=== PATIENT | female | born 1965 | race American Indian/Alaskan Native ===

== ENCOUNTER 2016-05-06 11:59 | Emergency (ER) | payer MEDICARE ==
--- NOTE | 2016-05-06 14:35 | Emergency Department Report ---
Chief Complaint: Recheck/Abnormal Lab/Rx Stated Complaint: ASTHMA Time Seen by Provider: 05/06/16 14:35 - HPI History of Present Illness: Patient here reports that she needs to know if she is anemic or need iron supplements her blood transfusion. She says she has all the symptoms of anemia to include shortness of breath all the time. She has panic attacks. She says she is losing blood from somewhere. Patient does not have her period anymore. She said her hears falling out. She sees Dr. Sebastián Zuñiga who she has an appointment with an May 18. said that she cannot wait. Her vitamin D level he is at 12 and she has mild anemia based on lab results that she brought to the hospital. He reports that Dr. Rhys Bond has not addressed the problem as yet. Denies any nausea or vomiting. Denies any fever or chills. Denies any chest pain. - ROS Review of Systems: All systems are negative unless stated in HPI above. - Exam Vital Signs: Vital Signs 05/06/16 14:02 Temperature 98.4 F Pulse Rate 88 Respiratory 18 Rate Blood Pressure 106/64 O2 Sat by Pulse 98 Oximetry Physical Exam: General: This is a 50-year-old female well-nourished well-developed in no acute distress. Cardiovascular: S1, S2. Regular rate and rhythm. Lungs: Clear to auscultate bilaterally, rhonchi wheezes or rales. MSE screening note: Focused history and physical exam performed. Due to findings the following was ordered: See [facility] ED Medical Decision Making - Medical Decision Making Medical decision making: Patient seen by provider in triage area. Appropriate protocol activated and patient to main ED to be seen by physician. ED Disposition for MSE Condition: Stable
[2016-05-06 15:25] LABS: Basophils % (Auto) 0.8 % (0.0-1.8); Hematocrit 36.1 % (30.3-42.9); Mean Corpuscular HGB Conc 33 % (30-34); Mean Corpuscular Hemoglobin 28 pg (28-32); Mean Corpuscular Volume 85 fl (79-97); Platelet Count 270 K/mm3 (140-440); Red Blood Count 4.26 M/mm3 (3.65-5.03); Red Cell Distribution Width 13.8 % (13.2-15.2); White Blood Count 5.5 K/mm3 (4.5-11.0)
[2016-05-06 15:46] LABS: Alanine Aminotransferase 20 units/L (7-56); Albumin 4.4 g/dL (3.9-5); Albumin/Globulin Ratio 1.3 %; Alkaline Phosphatase 93 units/L (35-129); Anion Gap 19 mmol/L; BUN/Creatinine Ratio 10.83; Bilirubin,Total < 0.2 mg/dL (0.1-1.2); Blood Urea Nitrogen 13 mg/dL (7-17); Calcium 9.5 mg/dL (8.4-10.2); Carbon Dioxide 22 mmol/L (22-30); Chloride 102.4 mmol/L (98-107); Glucose 108 mg/dL (65-100); Potassium 4.7 mmol/L (3.6-5.0); Sodium 139 mmol/L (137-145); Total Iron Binding Capacity 348.6 mcg/dL (250-450); Total Protein 7.8 g/dL (6.3-8.2)
[2016-05-06 16:17] LABS: Bilirubin,Urine NEG (Negative); Blood,Urine NEG (Negative); Ketones,Urine NEG (Negative); Leukocyte Esterase,Urine NEG (Negative); Mucus,Urine FEW /HPF; Nitrite,Urine NEG (Negative); Protein,Urine <15 mg/dL mg/dL (Negative); Urobilinogen,Urine < 2.0 mg/dL (<2.0)
--- NOTE | 2016-05-06 21:36 | Emergency Department Report ---
HPI - General Chief Complaint: Recheck/Abnormal Lab/Rx Time Seen by Provider: 05/06/16 14:47 - HPI HPI: 50-year-old female with history of asthma, hypertension, diabetes, anemia presents today stating she would like to get her anemia and iron checked. Patient would also like vitamin D levels checked. Patient states that she had a asthma exacerbation earlier today but the symptoms have resolved. Denies shortness of breath, wheezing, difficulty in breathing at this time. Denies fever, chills, nausea, vomiting, chest pain, abdominal pain. Patient states that she has an appointment with her primary care provider on May 18 but did not want to wait to get lab work done. ED Past Medical Hx - Past Medical History Hx Hypertension: Yes Hx Diabetes: Yes Hx GERD: Yes Hx Arthritis: Yes Hx Psychiatric Treatment: Yes (Anxiety) Hx Asthma: Yes Additional medical history: Intubated x 8. heart murmur. osteoporosis. hearing loss in [place] - Surgical History Additional Surgical History: cataracts, nasal surg, tubal ligation - Social History Smoking Status: Never Smoker Substance Use Type: None - Medications Home Medications: Home Medications Medication Instructions Recorded Confirmed Last Taken Type Aspirin [Aspirin BABY CHEW TAB] 81 mg PO QDAY #30 tab.chew 06/15/13 04/05/1608/30 Rx ALBUTEROL Inhaler [ProAir HFA 2 puff IH QID PRN #1 inhalation 01/12/15 04/17/15 04/17/15 Rx Inhaler] Albuterol *Only Ed* [Proventil 2.5 mg IH Q4H PRN #1 box 02/06/15 04/17/1504/17 Rx 0.5% NEBS] Fluticasone/Salmeterol [Advair 2 inhalation INHALATION DAILY #1 02/06/1504/17/15 Rx Diskus 500-50 mcg] disk.w.dev Ipratropium [Atrovent NEB] 0.5 mg IH Q6HRT PRN #120 neb 02/06/15 04/17/15 Rx Gabapentin [Neurontin] 300 mg PO Q8HR 03/02/15 04/05/16 11/24/15 History Meloxicam [Mobic] 7.5 mg PO QDAY 03/02/15 04/05/16/16 History HYDROcodone/APAP 5-325 [[place] 1 each PO Q4HR PRN #20 tablet 04/08/15 04/17/15 Rx 5/325] Lisinopril [Zestril TAB] 20 mg PO QDAY tablet 06/16/15 04/05/16 11/25/15 Rx Loratadine [Claritin] 10 mg PO QDAY tablet 06/16/15 04/05/16 06/10/15 Rx Montelukast [Singulair] 10 mg PO QHS tablet 06/16/15 04/05/16 06/10/15 Rx Budesoni/Formotero 160-4.5(Nf) 1 puff IH BID #1 inha 10/26/15 04/05/16 Unknown Rx [Symbicort 160-4.5 (Nf)] Fluticasone/Salmeterol [Advair 2 inhalation INHALATION DAILY #1 10/26/15 Unknown Rx Diskus 500-50 mcg] disk.w.dev ALBUTEROL Inhaler [ProAir HFA 2 puff IH QID PRN #1 inhalation 03/15/16 04/05/16 Unknown Rx Inhaler] Fluticasone [Flonase] 1 spray NS QDAY #1 bottle 03/15/16 04/05/16 Unknown Rx Ipratropium/Albuterol Sulfate 1 ampul IH Q4HR #1 box 03/15/16 04/05/16 Unknown Rx [Duoneb 0.5 mg-3 mg/3 ml Soln] Diazepam Tab [Valium] 2 mg PO TID PRN #10 tablet 04/05/16 Unknown Rx ED Review of Systems ROS: Stated complaint: ASTHMA Other details as noted in HPI Constitutional: denies: chills, fever, malaise Eyes: denies: eye pain ENT: denies: ear pain, throat pain, congestion Respiratory: denies: cough, shortness of breath, wheezing Cardiovascular: denies: chest pain, palpitations Endocrine: no symptoms reported Gastrointestinal: denies: abdominal pain, nausea, vomiting Neurological: denies: headache Physical Exam - Physical Exam Vital Signs: Vital Signs 05/06/16 14:02 Temperature 98.4 F Pulse Rate 88 Respiratory 18 Rate Blood Pressure 106/64 O2 Sat by Pulse 98 Oximetry Physical Exam: GENERAL: The patient is well-developed and well-nourished. Patient is in NAD. HEAD: Normocephalic. Atraumatic. CHEST/LUNGS: Clear to auscultation throughout. HEART/CARDIOVASCULAR: Regular rate and rhythm. ABDOMEN: Abdomen is soft, nontender. No guarding or rebound tenderness. EXTREMITIES: Peripheral pulses intact. Capillary refill less than 2 seconds. NEURO: Alert and oriented x 3. Normal gait. ED Course Vital Signs 05/06/16 14:02 Temperature 98.4 F Pulse Rate 88 Respiratory 18 Rate Blood Pressure 106/64 O2 Sat by Pulse 98 Oximetry ED Medical Decision Making - Lab Data Result diagrams: 05/06/16 15:04 05/06/16 15:09 Vital Signs 05/06/16 14:02 Temperature 98.4 F Pulse Rate 88 Respiratory 18 Rate Blood Pressure 106/64 O2 Sat by Pulse 98 Oximetry Lab Results 05/06/16 05/06/16 05/06/16 Range/Units 15:04 15:09 15:09 WBC 5.5 (4.5-11.0) K/mm3 RBC 4.26 (3.65-5.03) M/mm3 Hgb 12.0 (10.1-14.3) gm/dl Hct 36.1 (30.3-42.9) % MCV 85 (79-97) fl MCH 28 (28-32) pg MCHC 33 (30-34) % RDW 13.8 (13.2-15.2) % Plt Count 270 (140-440) K/mm3 Lymph % (Auto) 27.0 (13.4-35.0) % Tift % (Auto) 6.5 (0.0-7.3) % Eos % (Auto) 1.0 (0.0-4.3) % Baso % (Auto) 0.8 (0.0-1.8) % Lymph # 1.5 (1.2-5.4) K/mm3 Tift # 0.4 (0.0-0.8) K/mm3 Eos # 0.1 (0.0-0.4) K/mm3 Baso # 0.0 (0.0-0.1) K/mm3 Seg Neutrophils % 64.7 (40.0-70.0) % Seg Neutrophils # 3.6 (1.8-7.7) K/mm3 Sodium 139 (137-145) mmol/L Potassium 4.7 (3.6-5.0) mmol/L Chloride 102.4 (98-107) mmol/L Carbon Dioxide 22 (22-30) mmol/L Anion Gap 19 mmol/L BUN 13 (7-17) mg/dL Creatinine 1.2 (0.7-1.2) mg/dL Estimated GFR 57 ml/min BUN/Creatinine Ratio 10.83 % Glucose 108 H (65-100) mg/dL Calcium 9.5 (8.4-10.2) mg/dL Iron 72 (37-170) ug/dL TIBC 348.60 (250-450) mcg/dL % Saturation 20.65 % Transferrin 249 (192-382) mg/dl Total Bilirubin < 0.2 (0.1-1.2) mg/dL AST 20 (5-40) units/L ALT 20 (7-56) units/L Alkaline Phosphatase 93 (35-129) units/L Total Protein 7.8 (6.3-8.2) g/dL Albumin 4.4 (3.9-5) g/dL Albumin/Globulin Ratio 1.3 % Urine Color (Yellow) Urine Turbidity (Clear) Urine pH (5.0-7.0) Ur Specific [place] (1.003-1.030) Urine Protein (Negative) mg/dL Urine Glucose (UA) (Negative) mg/dL Urine Ketones (Negative) mg/dL Urine Blood (Negative) Urine Nitrite (Negative) Urine Bilirubin (Negative) Urine Urobilinogen (<2.0) mg/dL Ur Leukocyte Esterase (Negative) Urine WBC (Auto) (0.0-6.0) /HPF Urine RBC (Auto) (0.0-6.0) /HPF U Epithel Cells (Auto) (0-13.0) /HPF Urine Mucus /HPF 05/06/16 Range/Units 15:55 WBC (4.5-11.0) K/mm3 RBC (3.65-5.03) M/mm3 Hgb (10.1-14.3) gm/dl Hct (30.3-42.9) % MCV (79-97) fl MCH (28-32) pg MCHC (30-34) % RDW (13.2-15.2) % Plt Count (140-440) K/mm3 Lymph % (Auto) (13.4-35.0) % Tift % (Auto) (0.0-7.3) % Eos % (Auto) (0.0-4.3) % Baso % (Auto) (0.0-1.8) % Lymph # (1.2-5.4) K/mm3 Tift # (0.0-0.8) K/mm3 Eos # (0.0-0.4) K/mm3 Baso # (0.0-0.1) K/mm3 Seg Neutrophils % (40.0-70.0) % Seg Neutrophils # (1.8-7.7) K/mm3 Sodium (137-145) mmol/L Potassium (3.6-5.0) mmol/L Chloride (98-107) mmol/L Carbon Dioxide (22-30) mmol/L Anion Gap mmol/L BUN (7-17) mg/dL Creatinine (0.7-1.2) mg/dL Estimated GFR ml/min BUN/Creatinine Ratio % Glucose (65-100) mg/dL Calcium (8.4-10.2) mg/dL Iron (37-170) ug/dL TIBC (250-450) mcg/dL % Saturation % Transferrin (192-382) mg/dl Total Bilirubin (0.1-1.2) mg/dL AST (5-40) units/L ALT (7-56) units/L Alkaline Phosphatase (35-129) units/L Total Protein (6.3-8.2) g/dL Albumin (3.9-5) g/dL Albumin/Globulin Ratio % Urine Color Straw (Yellow) Urine Turbidity Clear (Clear) Urine pH 5.0 (5.0-7.0) Ur Specific [place] 1.012 (1.003-1.030) Urine Protein <15 mg/dl (Negative) mg/dL Urine Glucose (UA) Neg (Negative) mg/dL Urine Ketones Neg (Negative) mg/dL Urine Blood Neg (Negative) Urine Nitrite Neg (Negative) Urine Bilirubin Neg (Negative) Urine Urobilinogen < 2.0 (<2.0) mg/dL Ur Leukocyte Esterase Neg (Negative) Urine WBC (Auto) 2.0 (0.0-6.0) /HPF Urine RBC (Auto) 1.0 (0.0-6.0) /HPF U Epithel Cells (Auto) < 1.0 (0-13.0) /HPF Urine Mucus Few /HPF - Medical Decision Making 50-year-old female presents today for her blood count and iron levels. Denies any medical complaints. Her physical exam is unremarkable. Informed patient that all her lab work is normal and she needs to follow up with her primary care provider. A copy of her lab work has been provided. Patient is in no acute distress at this time. She will be discharged home and is encouraged to return to the emergency room for any worsening symptoms. Critical care attestation.: If time is entered above; I have spent that time in minutes in the direct care of this critically ill patient, excluding procedure time. ED Disposition Clinical Impression: Anemia due to chronic blood loss Disposition: DISCHARGED TO HOME OR SELFCARE Is pt being admited?: No Does the pt Need Aspirin: No Condition: Stable Instructions: Anemia (ED) Additional Instructions: Follow-up with primary care provider. Return to the emergency department if symptoms worsen. Referrals: MAYA CARRIZALES MD [Primary Care Provider] - 3-5 Days Forms: Work/School Release Form(ED) Time of Disposition: 21:37
[2016-05-06 21:49] VITALS: BP 104/70
== END 2016-05-06 22:11 | disposition home or self-care (01) ==
LOC: ED 11:59
DX: D50.0 Iron deficiency anemia secondary to blood loss (chronic) (principal); I10 Essential (primary) hypertension; E11.9 Type 2 diabetes mellitus without complications; K21.9 Gastro-esophageal reflux disease without esophagitis; M19.90 Unspecified osteoarthritis, unspecified site; F41.9 Anxiety disorder, unspecified; Z79.4 Long term (current) use of insulin
CPT/HCPCS: 36415; 80053; 81001; 83550; 85025; 99283

== ENCOUNTER 2016-05-23 23:44 | Emergency (ER) | payer MEDICARE ==
[2016-05-24] VITALS: BP 173/104
[2016-05-24] MEDS: PROVENTIL IH ONE (00:50)
[2016-05-24] MEDS: ATROVENT IH ONE (00:51)
[2016-05-24] MEDS: DELTASONE PO ONE (01:21)
--- NOTE | 2016-05-24 01:33 | Emergency Department Report ---
ED Shortness of Breath HPI - General Chief Complaint: Dyspnea/Respdistress Stated Complaint: ASTHMA Time Seen by Provider: 05/24/16 00:48 Source: patient, EMS Mode of arrival: Wheelchair Limitations: No Limitations - History of Present Illness Initial Comments: This is an anxious individual who reports a long-standing history of asthma. She has been intubated on several occasions. She reports that she feels over the last couple of days has been more difficult to get a deep breath. She reports several things that are stressors and contributors to exacerbations. She indicates certain smells as well as whether and congestion can contribute to her asthma. She reports compliance on her medications. States last time she was on steroids was approximately 2 or 3 months ago. She states that she has a difficult time with her inhaler feeling that she can't get a deep breath with it. She reports more success with her nebulizer. She denies fever she denies cough she denies chest pain. MD Complaint: shortness of breath, "asthma attack", anxiety Onset/Timin -: Gradual, days(s) Severity: moderate Improves With: oxygen, bronchodilators Worsens With: exertion Known History Of: asthma Context: anxiety Associated Symptoms: denies other symptoms Treatments Prior to Arrival: bronchodilator - Related Data Home Medications Medication Instructions Recorded Confirmed Last Taken Gabapentin [Neurontin] 300 mg PO Q8HR 03/02/15 04/05/16 11/24/15 Meloxicam [Mobic] 7.5 mg PO QDAY 03/02/15 04/05/16 06/15/15 Previous Rx's Medication Instructions Recorded Last Taken Type Aspirin [Aspirin BABY CHEW TAB] 81 mg PO QDAY #30 tab.chew 06/15/13 11/20/15 Rx Lisinopril [Zestril TAB] 20 mg PO QDAY tablet 06/16/15 11/25/15 Rx Loratadine [Claritin] 10 mg PO QDAY tablet 06/16/15 06/10/15 Rx Montelukast [Singulair] 10 mg PO QHS tablet 06/16/15 06/10/15 Rx Budesoni/Formotero 160-4.5(Nf) 1 puff IH BID #1 inha 10/26/15 Unknown Rx [Symbicort 160-4.5 (Nf)] Fluticasone/Salmeterol [Advair 2 inhalation INHALATION DAILY #1 10/26/15 Unknown Rx Diskus 500-50 mcg] disk.w.dev Fluticasone [Flonase] 1 spray NS QDAY #1 bottle 03/15/16 Unknown Rx Ipratropium/Albuterol Sulfate 1 ampul IH Q4HR #1 box 03/15/16 Unknown Rx [Duoneb 0.5 mg-3 mg/3 ml Soln] Diazepam Tab [Valium] 2 mg PO TID PRN #10 tablet 04/05/16 Unknown Rx ALBUTEROL Inhaler [ProAir HFA 2 puff IH QID PRN #1 inhalation 05/24/16 Unknown Rx Inhaler] Prednisone [predniSONE 10 mg 10 mg PO .TAPER #1 tab.ds.pk 05/24/16 Unknown Rx (6-Day Pack, 21 Tabs)] Allergies Allergy/AdvReac Type Severity Reaction Status Date / Time amoxicillin Allergy Unknown Verified 05/24/16 00:00 Penicillins Allergy Rash Verified 05/06/16 14:09 seafood Allergy Severe Anaphylaxis Uncoded 05/06/16 14:09 ED Review of Systems ROS: Stated complaint: ASTHMA Other details as noted in HPI Constitutional: denies: chills, fever Eyes: denies: eye pain, eye discharge, vision change ENT: denies: ear pain, throat pain Respiratory: shortness of breath, wheezing. denies: cough Cardiovascular: denies: chest pain, palpitations Endocrine: no symptoms reported Gastrointestinal: denies: abdominal pain, nausea, diarrhea Genitourinary: denies: urgency, dysuria, discharge Musculoskeletal: denies: back pain, joint swelling, arthralgia Skin: denies: rash, lesions Neurological: denies: headache, weakness, paresthesias Psychiatric: anxiety. denies: depression Hematological/Lymphatic: denies: easy bleeding, easy bruising ED Past Medical Hx - Past Medical History Previous Medical History?: Yes Hx Hypertension: Yes Hx Diabetes: Yes Hx GERD: Yes Hx Arthritis: Yes Hx Psychiatric Treatment: Yes (Anxiety) Hx Asthma: Yes Additional medical history: Intubated x 8. heart murmur. osteoporosis. hearing loss in [place] - Surgical History Past Surgical History?: Yes Additional Surgical History: cataracts, nasal surg, tubal ligation. bilateral foot - Social History Smoking Status: Former Smoker - Medications Home Medications: Home Medications Medication Instructions Recorded Confirmed Last Taken Type Aspirin [Aspirin BABY CHEW TAB] 81 mg PO QDAY #30 tab.chew 06/15/13 04/05/1608/30 Rx Gabapentin [Neurontin] 300 mg PO Q8HR 03/02/15 04/05/16 11/24/15 History Meloxicam [Mobic] 7.5 mg PO QDAY 03/02/15 04/05/16 06/15/15 History Lisinopril [Zestril TAB] 20 mg PO QDAY tablet 06/16/15 04/05/16 11/25/15 Rx Loratadine [Claritin] 10 mg PO QDAY tablet 06/16/15 04/05/16 06/10/15 Rx Montelukast [Singulair] 10 mg PO QHS tablet 06/16/15 04/05/16 06/10/15 Rx Budesoni/Formotero 160-4.5(Nf) 1 puff IH BID #1 inha 10/26/15 04/05/16 Unknown Rx [Symbicort 160-4.5 (Nf)] Fluticasone/Salmeterol [Advair 2 inhalation INHALATION DAILY #1 10/26/15 Unknown Rx Diskus 500-50 mcg] disk.w.dev Fluticasone [Flonase] 1 spray NS QDAY #1 bottle 03/15/16 04/05/16 Unknown Rx Ipratropium/Albuterol Sulfate 1 ampul IH Q4HR #1 box 03/15/16 04/05/16 Unknown Rx [Duoneb 0.5 mg-3 mg/3 ml Soln] Diazepam Tab [Valium] 2 mg PO TID PRN #10 tablet 04/05/16 Unknown Rx ALBUTEROL Inhaler [ProAir HFA 2 puff IH QID PRN #1 inhalation 05/24/16 Unknown Rx Inhaler] Prednisone [predniSONE 10 mg 10 mg PO .TAPER #1 tab.ds.pk 05/24/16 Unknown Rx (6-Day Pack, 21 Tabs)] ED Physical Exam - General Limitations: No Limitations General appearance: alert, anxious, in distress (mild with deep sigh like breaths) - Head Head exam: Present: atraumatic, normocephalic - Eye Eye exam: Present: normal appearance, PERRL. Absent: scleral icterus - ENT ENT exam: Present: normal orophraynx, mucous membranes moist - Neck Neck exam: Present: normal inspection - Respiratory Respiratory exam: Present: wheezes (mild), decreased breath sounds (mild). Absent: respiratory distress, rhonchi, stridor - Cardiovascular Cardiovascular Exam: Present: regular rate, normal rhythm. Absent: systolic murmur, diastolic murmur, rubs, gallop - GI/Abdominal GI/Abdominal exam: Present: soft, normal bowel sounds - Extremities Exam Extremities exam: Present: normal inspection - Back Exam Back exam: Present: normal inspection - Neurological Exam Neurological exam: Present: alert, oriented X3 - Psychiatric Psychiatric exam: Present: anxious. Absent: agitated - Skin Skin exam: Present: warm, dry, intact, normal color. Absent: rash ED Course Vital Signs 05/23/16 05/24/16 23:51 01:25 Temperature 98.3 F Pulse Rate 91 H Pulse Rate [ 85 Bilateral Throughout] Respiratory 22 Rate Respiratory 22 Rate [Bilateral Throughout] Blood Pressure 173/104 O2 Sat by Pulse 98 Oximetry - Reevaluation(s) Reevaluation #1: 05/24/16 02:17 Patient has somewhat of a non-affect. There does seem to be some mental delay or some difficulties with understanding comprehension in general. So I don't know what her baseline is exactly. She does seem to have some difficulty with understanding all of the concepts I am discussing regarding her asthma. She was given a 10 mg albuterol and Atrovent nebulized treatment here with subjective and objective improvement. She did become fairly shaky with this. She is in increased anxiety at this time as well. Objectively she is able to take deeper breaths with good air movement. Still has occasional wheeze but sounds much improved. Looking at her though she still has this kind of deep sigh breathing that she is doing. HER chest at times stating that she feels fairly tight still. Her oxygen saturation is 100% heart rate is normal she has been given steroids here. I do not see a reason to keep her in the hospital. I did give her 1 mg of Ativan here. She asked for a prescription for home. I am unwilling to do this. She has her brother who is coming to pick her up. Clearly I take into account the fact that she's had intubation in the past and I don't doubt she could get into trouble quickly. She has been hears a couple of hours and has not shown any decline in any way. Avoid bolus here as well which I think will continue to improve her status over the next several hours. Again, she indicates she has a brother who will be with her tonight. ED Medical Decision Making - EKG Data -: EKG Interpreted by Me EKG shows normal: sinus rhythm, axis, intervals, QRS complexes, ST-T waves Rate: normal - EKG Data Interpretation: normal EKG - Radiology Data interpreted by me: Normal chest x-ray normal cardiac silhouette and no infiltrates. Critical care attestation.: If time is entered above; I have spent that time in minutes in the direct care of this critically ill patient, excluding procedure time. ED Disposition Clinical Impression: Asthma Asthma exacerbation Qualifiers: Asthma severity: moderate persistent Qualified Code(s): J45.41 - Moderate persistent asthma with (acute) exacerbation Disposition: DISCHARGED TO HOME OR SELFCARE Is pt being admited?: No Does the pt Need Aspirin: No Condition: Stable Instructions: Asthma (ED) Prescriptions: ALBUTEROL Inhaler [ProAir HFA Inhaler] 2 puff IH QID PRN #1 inhalation PRN Reason: Shortness Of Breath Prednisone [predniSONE 10 mg (6-Day Pack, 21 Tabs)] 10 mg PO .TAPER #1 tab.ds.pk Referrals: PRIMARY CARE, [Primary Care Provider] - 3-5 Days Time of Disposition: 01:33
[2016-05-24] MEDS ORDERED: ATIVAN ONE (01:53)
[2016-05-24] MEDS: ATIVAN PO ONE (02:09)
--- NOTE | 2016-05-24 07:34 | XRay Report ---
AP CHEST: HISTORY: Short of breath AP view of the chest demonstrates a normal mediastinal and cardiac contour with clear lungs and normal bony and soft tissue structures. No significant change since 04/05/16. IMPRESSION: Unremarkable AP chest.
== END 2016-05-24 02:11 | disposition home or self-care (01) ==
LOC: ED 23:44
DX: J45.41 Moderate persistent asthma with (acute) exacerbation (principal); F41.9 Anxiety disorder, unspecified; I10 Essential (primary) hypertension; E11.9 Type 2 diabetes mellitus without complications; K21.9 Gastro-esophageal reflux disease without esophagitis; M19.90 Unspecified osteoarthritis, unspecified site; Z87.891 Personal history of nicotine dependence; Z79.82 Long term (current) use of aspirin; Z88.0 Allergy status to penicillin; Z88.1 Allergy status to other antibiotic agents; Z91.013 Allergy to seafood
CPT/HCPCS: 71010; 93005; 93010; 94644; 99284; J7512

== ENCOUNTER 2016-07-09 18:28 | Emergency (ER) | payer MEDICARE ==
[2016-07-09] MEDS ORDERED: DUONEB 0.5 MG-3 MG/3 ML SOLN IH ONE (19:43)
[2016-07-09 20:14] LABS: Basophils % (Auto) 1.2 % (0.0-1.8); Eosinophils % (Auto) 9.5 % (0.0-4.3); Hematocrit 33.3 % (30.3-42.9); Hemoglobin 11.1 gm/dl (10.1-14.3); Mean Corpuscular HGB Conc 33 % (30-34); Mean Corpuscular Hemoglobin 29 pg (28-32); Mean Corpuscular Volume 86 fl (79-97); Platelet Count 247 K/mm3 (140-440); Red Blood Count 3.89 M/mm3 (3.65-5.03); Red Cell Distribution Width 15.2 % (13.2-15.2); White Blood Count 5.9 K/mm3 (4.5-11.0)
[2016-07-09 20:26] LABS: Anion Gap 17 mmol/L; BUN/Creatinine Ratio 13.33; Blood Urea Nitrogen 12 mg/dL (7-17); Calcium 9.1 mg/dL (8.4-10.2); Carbon Dioxide 26 mmol/L (22-30); Chloride 103.9 mmol/L (98-107); Glucose 84 mg/dL (65-100); Sodium 143 mmol/L (137-145)
[2016-07-10] MEDS ORDERED: DUONEB 0.5 MG-3 MG/3 ML SOLN IH ONE (01:37)
[2016-07-10] MEDS ORDERED: MAGNESIUM SULFATE IV ONE (03:42)
[2016-07-10] MEDS ORDERED: MAGNESIUM SULFATE 2GM/50ML 2 GM/50 ML BAG IV ONE (04:00)
[2016-07-10 07:01] LABS: ISTAT Base Excess 0; ISTAT DEVICE 0; ISTAT HCO3 24.2; ISTAT PCO2 37.1 (35-45); ISTAT PH 7.423 (7.35-7.45); ISTAT PO2 94 (80-105); ISTAT SO2 98; ISTAT TCO2 25
--- NOTE | 2016-07-10 07:33 | Emergency Department Report ---
ED General Adult HPI - General Chief complaint: Dyspnea/Respdistress Stated complaint: ASTHMA ATTACK Time Seen by Provider: 07/10/16 06:19 Source: patient Mode of arrival: Ambulatory Limitations: No Limitations - History of Present Illness Initial comments: The patient complains of exacerbation of asthma. She states that she was at [facility] last week and given a course of I presume a azithromycin and Medrol Dosepak. She states that 2 days after that she started to flareup again. She has some tightness associated with her wheezing but not any independent chest pain. She has no pleuritic chest pain. She has not been coughing significantly or producing sputum. She's had no recent fever or chills. She does not complain of any chest tightness now. She states that she has never seen a lung specialist. She is improved after receiving steroids and nebs here. -: week(s) Location: chest Radiation: non-radiation Severity scale (0 -10): 0 Quality: other (see above) Consistency: now resolved Worsens with: none Associated Symptoms: denies other symptoms Treatments Prior to Arrival: none - Related Data Home Medications Medication Instructions Recorded Confirmed Last Taken Gabapentin [Neurontin] 300 mg PO Q8HR 03/02/15 04/05/16 11/24/15 Meloxicam [Mobic] 7.5 mg PO QDAY 03/02/15 04/05/16 06/15/15 Previous Rx's Medication Instructions Recorded Last Taken Type Aspirin [Aspirin BABY CHEW TAB] 81 mg PO QDAY #30 tab.chew 06/15/13 11/20/15 Rx Lisinopril [Zestril TAB] 20 mg PO QDAY tablet 06/16/15 11/25/15 Rx Loratadine [Claritin] 10 mg PO QDAY tablet 06/16/15 06/10/15 Rx Montelukast [Singulair] 10 mg PO QHS tablet 06/16/15 06/10/15 Rx Budesoni/Formotero 160-4.5(Nf) 1 puff IH BID #1 inha 10/26/15 Unknown Rx [Symbicort 160-4.5 (Nf)] Fluticasone/Salmeterol [Advair 2 inhalation INHALATION DAILY #1 10/26/15 Unknown Rx Diskus 500-50 mcg] disk.w.dev Fluticasone [Flonase] 1 spray NS QDAY #1 bottle 03/15/16 Unknown Rx Ipratropium/Albuterol Sulfate 1 ampul IH Q4HR #1 box 03/15/16 Unknown Rx [Duoneb 0.5 mg-3 mg/3 ml Soln] Diazepam Tab [Valium] 2 mg PO TID PRN #10 tablet 04/05/16 Unknown Rx Prednisone [predniSONE 10 mg 10 mg PO .TAPER #1 tab.ds.pk 05/24/16 Unknown Rx (6-Day Pack, 21 Tabs)] Azithromycin [Zithromax TAB] 250 mg PO QDAY #6 tablet 06/03/16 Unknown Rx Fluticasone [Flonase] 1 spray NS QDAY #1 bottle 06/03/16 Unknown Rx ALBUTEROL Inhaler [ProAir HFA 2 puff IH QID PRN #1 inhalation 07/10/16 Unknown Rx Inhaler] ALBUTEROL NEB's [Proventil 0.083% 2.5 mg IH TID PRN #60 neb 07/10/16 Unknown Rx NEBS] Mometasone Furoate [Asmanex] 220 mcg IH QDAY #1 aer.pow.ba 07/10/16 Unknown Rx predniSONE [Deltasone] 40 mg PO QDAY #10 tab 07/10/16 Unknown Rx Allergies Allergy/AdvReac Type Severity Reaction Status Date / Time amoxicillin Allergy Unknown Verified 06/03/16 11:01 Penicillins Allergy Rash Verified 06/03/16 11:01 seafood Allergy Severe Anaphylaxis Uncoded 05/06/16 14:09 ED Review of Systems ROS: Stated complaint: ASTHMA ATTACK Other details as noted in HPI Constitutional: denies: chills, fever Eyes: denies: eye pain, eye discharge, vision change ENT: denies: ear pain, throat pain Respiratory: no symptoms reported, shortness of breath, wheezing. denies: SOB at rest Cardiovascular: as per HPI. denies: palpitations Endocrine: no symptoms reported Gastrointestinal: denies: abdominal pain, nausea, diarrhea Genitourinary: denies: urgency, dysuria, discharge Musculoskeletal: denies: back pain, joint swelling, arthralgia Skin: denies: rash, lesions Neurological: denies: headache, weakness, paresthesias Psychiatric: denies: anxiety, depression Hematological/Lymphatic: denies: easy bleeding, easy bruising ED Past Medical Hx - Past Medical History Hx Hypertension: Yes Hx Diabetes: Yes Hx GERD: Yes Hx Arthritis: Yes Hx Psychiatric Treatment: Yes (Anxiety) Hx Asthma: Yes Additional medical history: Intubated x 8. heart murmur. osteoporosis. hearing loss in [place] - Surgical History Additional Surgical History: cataracts, nasal surg, tubal ligation. bilateral foot - Social History Smoking Status: Never Smoker Substance Use Type: None - Medications Home Medications: Home Medications Medication Instructions Recorded Confirmed Last Taken Type Aspirin [Aspirin BABY CHEW TAB] 81 mg PO QDAY #30 tab.chew 06/15/13 04/05/1608/30 Rx Gabapentin [Neurontin] 300 mg PO Q8HR 03/02/15 04/05/16 11/24/15 History Meloxicam [Mobic] 7.5 mg PO QDAY 03/02/15 04/05/16 06/15/15 History Lisinopril [Zestril TAB] 20 mg PO QDAY tablet 06/16/15 04/05/16 11/25/15 Rx Loratadine [Claritin] 10 mg PO QDAY tablet 06/16/15 04/05/16 06/10/15 Rx Montelukast [Singulair] 10 mg PO QHS tablet 06/16/15 04/05/16 06/10/15 Rx Budesoni/Formotero 160-4.5(Nf) 1 puff IH BID #1 inha 10/26/15 04/05/16 Unknown Rx [Symbicort 160-4.5 (Nf)] Fluticasone/Salmeterol [Advair 2 inhalation INHALATION DAILY #1 10/26/15 Unknown Rx Diskus 500-50 mcg] disk.w.dev Fluticasone [Flonase] 1 spray NS QDAY #1 bottle 03/15/16 04/05/16 Unknown Rx Ipratropium/Albuterol Sulfate 1 ampul IH Q4HR #1 box 03/15/16 04/05/16 Unknown Rx [Duoneb 0.5 mg-3 mg/3 ml Soln] Diazepam Tab [Valium] 2 mg PO TID PRN #10 tablet 04/05/16 Unknown Rx Prednisone [predniSONE 10 mg 10 mg PO .TAPER #1 tab.ds.pk 05/24/16 Unknown Rx (6-Day Pack, 21 Tabs)] Azithromycin [Zithromax TAB] 250 mg PO QDAY #6 tablet 06/03/16 Unknown Rx Fluticasone [Flonase] 1 spray NS QDAY #1 bottle 06/03/16 Unknown Rx ALBUTEROL Inhaler [ProAir HFA 2 puff IH QID PRN #1 inhalation 07/10/16 Unknown Rx Inhaler] ALBUTEROL NEB's [Proventil 0.083% 2.5 mg IH TID PRN #60 neb 07/10/16 Unknown Rx NEBS] Mometasone Furoate [Asmanex] 220 mcg IH QDAY #1 aer.pow.ba 07/10/16 Unknown Rx predniSONE [Deltasone] 40 mg PO QDAY #10 tab 07/10/16 Unknown Rx ED Physical Exam - General Limitations: No Limitations General appearance: alert, in no apparent distress - Head Head exam: Present: atraumatic, normocephalic - Eye Eye exam: Present: normal appearance, PERRL, EOMI. Absent: scleral icterus - ENT ENT exam: Present: normal exam, mucous membranes moist - Neck Neck exam: Present: normal inspection - Respiratory Respiratory exam: Present: normal lung sounds bilaterally, other (wheezing resolved now). Absent: respiratory distress - Cardiovascular Cardiovascular Exam: Present: regular rate, normal rhythm. Absent: systolic murmur, diastolic murmur, rubs, gallop - GI/Abdominal GI/Abdominal exam: Present: soft, normal bowel sounds. Absent: distended, tenderness, guarding, rebound, rigid - Extremities Exam Extremities exam: Present: normal inspection - Back Exam Back exam: Present: normal inspection - Neurological Exam Neurological exam: Present: alert, oriented X3, CN II-XII intact. Absent: motor sensory deficit - Psychiatric Psychiatric exam: Present: normal affect, normal mood - Skin Skin exam: Present: warm, dry, intact, normal color. Absent: rash ED Course Vital Signs 07/09/16 07/09/16 07/09/16 19:24 20:27 20:35 Temperature 98.5 F Pulse Rate 94 H Pulse Rate [ 84 89 Posterior Bilateral Throughout] Respiratory 24 Rate Respiratory 22 25 H Rate [Posterior Bilateral Throughout] Blood Pressure 139/82 Blood Pressure [Left] O2 Sat by Pulse 95 Oximetry 07/10/16 07/10/16 07/10/16 01:56 02:15 03:20 Temperature Pulse Rate 84 Pulse Rate [ 87 94 H Posterior Bilateral Throughout] Respiratory 14 Rate Respiratory 22 22 Rate [Posterior Bilateral Throughout] Blood Pressure Blood Pressure [Left] O2 Sat by Pulse 97 Oximetry 07/10/16 07/10/16 07/10/16 03:25 03:26 03:30 Temperature Pulse Rate 86 80 Pulse Rate [ Posterior Bilateral Throughout] Respiratory 16 15 Rate Respiratory Rate [Posterior Bilateral Throughout] Blood Pressure 124/87 115/74 Blood Pressure [Left] O2 Sat by Pulse 97 96 98 Oximetry 07/10/16 07/10/16 07/10/16 03:36 03:40 03:46 Temperature Pulse Rate 77 78 75 Pulse Rate [ Posterior Bilateral Throughout] Respiratory 16 16 17 Rate Respiratory Rate [Posterior Bilateral Throughout] Blood Pressure 115/74 115/74 115/74 Blood Pressure [Left] O2 Sat by Pulse 97 98 100 Oximetry 07/10/16 07/10/16 07/10/16 03:50 03:56 04:00 Temperature Pulse Rate 77 80 79 Pulse Rate [ Posterior Bilateral Throughout] Respiratory 15 15 16 Rate Respiratory Rate [Posterior Bilateral Throughout] Blood Pressure 125/64 125/64 116/65 Blood Pressure [Left] O2 Sat by Pulse 98 98 97 Oximetry 07/10/16 07/10/16 07/10/16 04:06 04:10 04:15 Temperature Pulse Rate 78 79 77 Pulse Rate [ Posterior Bilateral Throughout] Respiratory 16 17 16 Rate Respiratory Rate [Posterior Bilateral Throughout] Blood Pressure 116/65 116/65 107/58 Blood Pressure [Left] O2 Sat by Pulse 97 96 94 Oximetry 07/10/16 07/10/16 07/10/16 04:20 04:26 04:30 Temperature Pulse Rate 80 80 81 Pulse Rate [ Posterior Bilateral Throughout] Respiratory 16 19 20 Rate Respiratory Rate [Posterior Bilateral Throughout] Blood Pressure 107/58 107/58 107/58 Blood Pressure [Left] O2 Sat by Pulse 96 94 95 Oximetry 07/10/16 07/10/16 07/10/16 04:36 04:40 04:45 Temperature Pulse Rate 79 87 77 Pulse Rate [ Posterior Bilateral Throughout] Respiratory 17 16 19 Rate Respiratory Rate [Posterior Bilateral Throughout] Blood Pressure 95/53 95/53 98/60 Blood Pressure [Left] O2 Sat by Pulse 95 95 96 Oximetry 07/10/16 07/10/16 07/10/16 04:50 04:56 05:00 Temperature Pulse Rate 70 77 79 Pulse Rate [ Posterior Bilateral Throughout] Respiratory 16 17 18 Rate Respiratory Rate [Posterior Bilateral Throughout] Blood Pressure 98/60 98/60 97/51 Blood Pressure [Left] O2 Sat by Pulse 95 96 95 Oximetry 07/10/16 07/10/16 07/10/16 05:06 05:10 05:15 Temperature Pulse Rate 79 75 77 Pulse Rate [ Posterior Bilateral Throughout] Respiratory 18 17 18 Rate Respiratory Rate [Posterior Bilateral Throughout] Blood Pressure 97/51 97/51 99/54 Blood Pressure [Left] O2 Sat by Pulse 94 94 93 Oximetry 07/10/16 07/10/16 07/10/16 05:20 05:26 05:30 Temperature Pulse Rate 79 79 79 Pulse Rate [ Posterior Bilateral Throughout] Respiratory 18 18 17 Rate Respiratory Rate [Posterior Bilateral Throughout] Blood Pressure 99/54 99/54 99/54 Blood Pressure [Left] O2 Sat by Pulse 94 94 94 Oximetry 07/10/16 07/10/16 07/10/16 05:36 05:40 05:45 Temperature Pulse Rate 77 81 89 Pulse Rate [ Posterior Bilateral Throughout] Respiratory 17 20 16 Rate Respiratory Rate [Posterior Bilateral Throughout] Blood Pressure 90/50 90/50 107/59 Blood Pressure [Left] O2 Sat by Pulse 94 96 95 Oximetry 07/10/16 07/10/16 07/10/16 05:50 05:56 07:02 Temperature 98.2 F Pulse Rate 71 72 89 Pulse Rate [ Posterior Bilateral Throughout] Respiratory 16 18 18 Rate Respiratory Rate [Posterior Bilateral Throughout] Blood Pressure 107/59 107/59 Blood Pressure 131/70 [Left] O2 Sat by Pulse 95 95 97 Oximetry 07/10/16 07:04 Temperature Pulse Rate 89 Pulse Rate [ Posterior Bilateral Throughout] Respiratory Rate Respiratory Rate [Posterior Bilateral Throughout] Blood Pressure Blood Pressure [Left] O2 Sat by Pulse Oximetry - Reevaluation(s) Reevaluation #1: Patient states she is ready for discharge. Pulse oximetry is in the high 90s. Respiratory rate normal. Normal work of breathing. No wheezing. 07/10/16 07:32 ED Medical Decision Making - Lab Data Result diagrams: 07/09/16 19:47 07/09/16 19:47 Laboratory Results - last 24 hr 07/09/16 07/09/16 07/10/16 19:47 19:47 06:55 WBC 5.9 RBC 3.89 Hgb 11.1 Hct 33.3 MCV 86 MCH 29 MCHC 33 RDW 15.2 Plt Count 247 Lymph % (Auto) 41.7 H Snyder % (Auto) 8.0 H Eos % (Auto) 9.5 H Baso % (Auto) 1.2 Lymph # 2.5 Snyder # 0.5 Eos # 0.6 H Baso # 0.1 Seg Neutrophils % 39.6 L Seg Neutrophils # 2.3 POC ABG pH 7.423 POC ABG pCO2 37.1 POC ABG pO2 94 POC ABG HCO3 24.2 POC ABG Total CO2 25 POC ABG O2 Sat 98 POC ABG Base Excess 0 FiO2 21 Sodium 143 Potassium 4.0 Chloride 103.9 Carbon Dioxide 26 Anion Gap 17 BUN 12 Creatinine 0.9 Estimated GFR > 60 BUN/Creatinine Ratio 13.33 Glucose 84 Calcium 9.1 Troponin T < 0.010 - EKG Data -: EKG Interpreted by Me EKG shows normal: sinus rhythm, axis, intervals, QRS complexes, ST-T waves Rate: normal - EKG Data Interpretation: no acute changes - Radiology Data Chest x-ray no acute process Critical care attestation.: If time is entered above; I have spent that time in minutes in the direct care of this critically ill patient, excluding procedure time. ED Disposition Clinical Impression: Acute exacerbation of COPD with asthma Disposition: DISCHARGED TO HOME OR SELFCARE Is pt being admited?: No Does the pt Need Aspirin: No Condition: Stable Instructions: Asthma (ED) Additional Instructions: Monitor your sugar while you are taking prednisone. I've given you referrals to a lung specialist. Rx as directed. Avoid triggers as possible. Antihistamine such as Zyrtec or Claritin is recommended [id number] for your seasonal allergies. Return any acute change as needed. Prescriptions: ALBUTEROL Inhaler [ProAir HFA Inhaler] 2 puff IH QID PRN #1 inhalation PRN Reason: Shortness Of Breath ALBUTEROL NEB's [Proventil 0.083% NEBS] 2.5 mg IH TID PRN #60 neb PRN Reason: Wheezing Mometasone Furoate [Asmanex] 220 mcg IH QDAY #1 aer.pow.ba predniSONE [Deltasone] 40 mg PO QDAY #10 tab Referrals: PRIMARY CARE, [Primary Care Provider] - 3-5 Days JOHN FINN MD [Staff Physician] - 2-3 Days Forms: Work/School Release Form(ED) Time of Disposition: 07:40
[2016-07-10 08:22] VITALS: BP 118/70
--- NOTE | 2016-07-10 10:28 | XRay Report ---
CHEST TWO VIEWS: 07/09/16 18:28:00 CLINICAL: Shortness of breath. COMPARISON: 06/21/16 FINDINGS: Normal heart and pulmonary vasculature. The lungs are normally expanded and clear. Mild aortic tortuosity.The bones and soft tissues are normal. IMPRESSION: No acute cardiopulmonary process.
== END 2016-07-10 08:23 | disposition home or self-care (01) ==
LOC: ED 18:28
DX: J44.1 Chronic obstructive pulmonary disease with (acute) exacerbation (principal); J45.901 Unspecified asthma with (acute) exacerbation; E11.9 Type 2 diabetes mellitus without complications; K21.9 Gastro-esophageal reflux disease without esophagitis; M19.90 Unspecified osteoarthritis, unspecified site; F41.9 Anxiety disorder, unspecified; Z98.51 Tubal ligation status; Z88.1 Allergy status to other antibiotic agents; Z88.0 Allergy status to penicillin; Z91.013 Allergy to seafood; Z98.890 Other specified postprocedural states; Z79.899 Other long term (current) drug therapy
CPT/HCPCS: 36415; 71020; 80048; 82803; 84484; 85025; 93005; 93010; 94640; 96365; 96366; 96375; 99284; J2930; J3475

== ENCOUNTER 2016-07-31 17:00 | Emergency (ER) | payer MEDICARE ==
[2016-07-31] MEDS ORDERED: DUONEB 0.5 MG-3 MG/3 ML SOLN IH ONE (17:57)
--- NOTE | 2016-08-01 01:33 | Emergency Department Report ---
ED Shortness of Breath HPI - General Chief Complaint: Adult Asthma Stated Complaint: SHRUTHI Time Seen by Provider: 08/01/16 01:27 Source: patient Mode of arrival: Ambulatory Limitations: No Limitations - History of Present Illness Initial Comments: Patient is a 50-year-old woman with a history of hypertension, diabetes, and asthma. Patient reports she was at [facility] today when a fog machine triggered her asthma. Patient reports user inhaler then went home and had 2 albuterol treatments via nebulizer with little to no effect. Patient received Solu- Medrol while waiting to be seen, patient reports she has been intubated in the past which she feels much better. Patient reports that she has associated anxiety which triggers her asthma and makes her asthma worse. Patient reports she does have a appointment with her asthma specialist in 2 days. He should also reports she was recently treated for an asthma flare and bronchitis, patient finished a Z-Bakari and 5 days prednisone. Otherwise no fevers, chills, headache, nausea, vomiting, diarrhea, chest pain, abdominal pain, travel, or sick contacts MD Complaint: shortness of breath, "asthma attack" -: Gradual - Related Data Home Medications Medication Instructions Recorded Confirmed Last Taken Gabapentin [Neurontin] 300 mg PO Q8HR 03/02/15 07/10/16 07/09/16 Meloxicam [Mobic] 7.5 mg PO QDAY 03/02/15 07/10/16 07/09/16 Previous Rx's Medication Instructions Recorded Last Taken Type Aspirin [Aspirin BABY CHEW TAB] 81 mg PO QDAY #30 tab.chew 06/15/13 07/09/16 Rx Lisinopril [Zestril TAB] 20 mg PO QDAY tablet 06/16/15 07/09/16 Rx Loratadine [Claritin] 10 mg PO QDAY tablet 06/16/15 07/09/16 Rx Montelukast [Singulair] 10 mg PO QHS tablet 06/16/15 07/09/16 Rx Budesoni/Formotero 160-4.5(Nf) 1 puff IH BID #1 inha 10/26/15 07/09/16 Rx [Symbicort 160-4.5 (Nf)] Fluticasone [Flonase] 1 spray NS QDAY #1 bottle 03/15/16 07/09/16 Rx Ipratropium/Albuterol Sulfate 1 ampul IH Q4HR #1 box 03/15/16 07/09/16 Rx [Duoneb 0.5 mg-3 mg/3 ml Soln] Diazepam Tab [Valium] 2 mg PO TID PRN #10 tablet 04/05/16 07/09/16 Rx Prednisone [predniSONE 10 mg 10 mg PO .TAPER #1 tab.ds.pk 05/24/16 07/09/16 Rx (6-Day Pack, 21 Tabs)] Azithromycin [Zithromax TAB] 250 mg PO QDAY #6 tablet 06/03/16 07/09/16 Rx Fluticasone [Flonase] 1 spray NS QDAY #1 bottle 06/03/16 07/09/16 Rx ALBUTEROL Inhaler [ProAir HFA 2 puff IH QID PRN #1 inhalation 07/10/16 Unknown Rx Inhaler] ALBUTEROL NEB's [Proventil 0.083% 2.5 mg IH TID PRN #60 neb 07/10/16 Unknown Rx NEBS] Mometasone Furoate [Asmanex] 220 mcg IH QDAY #1 aer.pow.ba 07/10/16 Unknown Rx predniSONE [Deltasone] 40 mg PO QDAY #10 tab 07/10/16 Unknown Rx Fluticasone/Salmeterol [Advair 2 inhalation INHALATION DAILY #1 08/01/16 Unknown Rx Diskus 500-50 mcg] disk.w.dev predniSONE [Deltasone] 50 mg PO QDAY #5 tab 08/01/16 Unknown Rx Allergies Allergy/AdvReac Type Severity Reaction Status Date / Time amoxicillin Allergy Unknown Verified 06/03/16 11:01 Penicillins Allergy Rash Verified 06/03/16 11:01 seafood Allergy Severe Anaphylaxis Uncoded 05/06/16 14:09 ED Review of Systems ROS: Stated complaint: SHRUTHI Other details as noted in HPI ED Past Medical Hx - Past Medical History Previous Medical History?: Yes Hx Hypertension: Yes Hx Diabetes: Yes Hx GERD: Yes Hx Arthritis: Yes Hx Psychiatric Treatment: Yes (Anxiety) Hx Asthma: Yes Additional medical history: Intubated x 8. heart murmur. osteoporosis. hearing loss in [place] - Surgical History Additional Surgical History: cataracts, nasal surg, tubal ligation. bilateral foot - Social History Smoking Status: Never Smoker Substance Use Type: None - Medications Home Medications: Home Medications Medication Instructions Recorded Confirmed Last Taken Type Aspirin [Aspirin BABY CHEW TAB] 81 mg PO QDAY #30 tab.chew 06/15/13 07/10/16 Rx Gabapentin [Neurontin] 300 mg PO Q8HR 03/02/15 07/10/16 07/09/16 History Meloxicam [Mobic] 7.5 mg PO QDAY 03/02/15 07/10/16 07/09/16 History Lisinopril [Zestril TAB] 20 mg PO QDAY tablet 06/16/15 07/10/16 07/09/16 Rx Loratadine [Claritin] 10 mg PO QDAY tablet 06/16/15 07/10/16 07/09/16 Rx Montelukast [Singulair] 10 mg PO QHS tablet 06/16/15 07/10/16 07/09/16 Rx Budesoni/Formotero 160-4.5(Nf) 1 puff IH BID #1 inha 10/26/15 07/10/16 07/09/16 Rx [Symbicort 160-4.5 (Nf)] Fluticasone [Flonase] 1 spray NS QDAY #1 bottle 03/15/16 07/10/16 07/09/16 Rx Ipratropium/Albuterol Sulfate 1 ampul IH Q4HR #1 box 03/15/16 07/10/16 07/09/16 Rx [Duoneb 0.5 mg-3 mg/3 ml Soln] Diazepam Tab [Valium] 2 mg PO TID PRN #10 tablet 04/05/16 07/10/16 07/09/16 Rx Prednisone [predniSONE 10 mg 10 mg PO .TAPER #1 tab.ds.pk 05/24/16 07/10/16 Rx (6-Day Pack, 21 Tabs)] Azithromycin [Zithromax TAB] 250 mg PO QDAY #6 tablet 06/03/16 07/10/16 Rx Fluticasone [Flonase] 1 spray NS QDAY #1 bottle 06/03/16 07/10/16 07/09/16 Rx ALBUTEROL Inhaler [ProAir HFA 2 puff IH QID PRN #1 inhalation 07/10/16 Unknown Rx Inhaler] ALBUTEROL NEB's [Proventil 0.083% 2.5 mg IH TID PRN #60 neb 07/10/16 Unknown Rx NEBS] Mometasone Furoate [Asmanex] 220 mcg IH QDAY #1 aer.pow.ba 07/10/16 Unknown Rx predniSONE [Deltasone] 40 mg PO QDAY #10 tab 07/10/16 Unknown Rx Fluticasone/Salmeterol [Advair 2 inhalation INHALATION DAILY #1 08/01/16 Unknown Rx Diskus 500-50 mcg] disk.w.dev predniSONE [Deltasone] 50 mg PO QDAY #5 tab 08/01/16 Unknown Rx ED Physical Exam - General Limitations: No Limitations General appearance: alert, in no apparent distress - Head Head exam: Present: atraumatic, normocephalic - Eye Eye exam: Present: normal appearance - ENT ENT exam: Present: mucous membranes moist - Neck Neck exam: Present: normal inspection - Respiratory Respiratory exam: Present: wheezes. Absent: respiratory distress - Cardiovascular Cardiovascular Exam: Present: regular rate, normal rhythm. Absent: systolic murmur, diastolic murmur, rubs, gallop - GI/Abdominal GI/Abdominal exam: Present: soft, normal bowel sounds - Extremities Exam Extremities exam: Present: normal inspection - Back Exam Back exam: Present: normal inspection - Neurological Exam Neurological exam: Present: alert, oriented X3 - Psychiatric Psychiatric exam: Present: normal affect, normal mood - Skin Skin exam: Present: warm, dry, intact, normal color. Absent: rash ED Course Vital Signs 07/31/16 07/31/16 07/31/16 17:42 18:27 18:36 Temperature 98.6 F Pulse Rate 95 H Pulse Rate [ 85 88 Bilateral Upper Lobe] Respiratory 22 Rate Respiratory 18 18 Rate [Bilateral Upper Lobe] Blood Pressure 152/94 Blood Pressure [Left] O2 Sat by Pulse 98 Oximetry 07/31/16 08/01/16 08/01/16 22:12 01:47 01:48 Temperature 98.4 F 98.1 F Pulse Rate 78 77 Pulse Rate [ Bilateral Upper Lobe] Respiratory 18 16 16 Rate Respiratory Rate [Bilateral Upper Lobe] Blood Pressure 134/87 Blood Pressure 135/87 [Left] O2 Sat by Pulse 97 98 99 Oximetry 08/01/16 08/01/16 02:04 02:25 Temperature Pulse Rate Pulse Rate [ 68 74 Bilateral Upper Lobe] Respiratory Rate Respiratory 18 18 Rate [Bilateral Upper Lobe] Blood Pressure Blood Pressure [Left] O2 Sat by Pulse Oximetry - Reevaluation(s) Reevaluation #1: 08/01/16 03:44 Patient reports significant improvement. Reexamination of her lungs revealed wheezing has resolved and better air movement. Discussed chest x-ray with the patient and she will follow-up with her asthma specialist in 2 days as planned and will finish another course of prednisone ED Medical Decision Making - EKG Data -: EKG Interpreted by Me ([facility]) EKG shows normal: sinus rhythm, axis (normal), intervals (QTC 386 ms), QRS complexes, ST-T waves ((-)ST/T changes, no STEMI) Rate: normal (96 bpm) Critical care attestation.: If time is entered above; I have spent that time in minutes in the direct care of this critically ill patient, excluding procedure time. ED Disposition Clinical Impression: Asthma attack Disposition: DISCHARGED TO HOME OR SELFCARE Is pt being admited?: No Condition: Stable Instructions: Asthma (ED) Prescriptions: Fluticasone/Salmeterol [Advair Diskus 500-50 mcg] 2 inhalation INHALATION DAILY #1 disk.w.dev predniSONE [Deltasone] 50 mg PO QDAY #5 tab Referrals: PRIMARY CARE, [Primary Care Provider] - 3-5 Days
[2016-08-01] MEDS ORDERED: PROVENTIL IH ONE (01:42)
[2016-08-01] MEDS ORDERED: XANAX PO ONE (02:08)
[2016-08-01 02:13] LABS: Bacteria,Urine 1+ /HPF (Negative); Bilirubin,Urine NEG (Negative); Blood,Urine NEG (Negative); Ketones,Urine NEG (Negative); Leukocyte Esterase,Urine MOD (Negative); Mucus,Urine FEW /HPF; Nitrite,Urine NEG (Negative); Protein,Urine <15 mg/dL mg/dL (Negative); Urobilinogen,Urine < 2.0 mg/dL (<2.0)
[2016-08-01 06:24] VITALS: BP 140/67
--- NOTE | 2016-08-01 07:31 | XRay Report ---
ROUTINE CHEST, TWO VIEWS: HISTORY: Shortness of breath. The trachea, heart, mediastinal contour, lung greene and bony thorax are unremarkable. IMPRESSION: Unremarkable chest x-ray. No significant change since 07/09/16.
== END 2016-08-01 06:24 | disposition home or self-care (01) ==
LOC: ED 17:00
DX: J45.909 Unspecified asthma, uncomplicated (principal); I10 Essential (primary) hypertension; E11.9 Type 2 diabetes mellitus without complications; K21.9 Gastro-esophageal reflux disease without esophagitis; M19.90 Unspecified osteoarthritis, unspecified site; F41.9 Anxiety disorder, unspecified; Z88.1 Allergy status to other antibiotic agents; Z88.0 Allergy status to penicillin; Z91.013 Allergy to seafood; Z79.82 Long term (current) use of aspirin
CPT/HCPCS: 71020; 81001; 93005; 93010; 94640; 96372; 99284; J2930

== ENCOUNTER 2016-09-02 17:50 | Emergency (ER) | payer MEDICARE ==
[2016-09-02] MEDS ORDERED: DUONEB 0.5 MG-3 MG/3 ML SOLN IH ONE (18:10)
[2016-09-02] MEDS ORDERED: PROVENTIL IH ONE (19:07)
[2016-09-02] MEDS ORDERED: ATROVENT IH ONE (19:07)
[2016-09-02] MEDS ORDERED: MAGNESIUM SULFATE 2GM/50ML 2 GM/50 ML BAG IV ONE (19:07)
--- NOTE | 2016-09-02 19:16 | Emergency Department Report ---
HPI - General Chief Complaint: Adult Asthma Time Seen by Provider: 09/02/16 19:01 - HPI HPI: Room 23 The patient is a 51-year-old female presenting with chief complaint of shortness of breath. The patient states her asthma has been flaring up for the past 3 days. The patient states her shortness of breath is worsening. The patient states her inhaler and nebulizer has not helped. Patient states she ran out of her Advair yesterday. Patient admits to a cough is occasionally productive. The patient is not certain if she has had a fever. Location: Lungs Duration: 3 days Quality: Consistent With asthma Severity: Severe Modifying factors: [see above] Context: [see above] Mode of transportation: The patient drove herself to the emergency department and there are no visitors present ED Past Medical Hx - Past Medical History Previous Medical History?: No Hx Hypertension: Yes Hx Diabetes: Yes Hx GERD: Yes Hx Arthritis: Yes Hx Psychiatric Treatment: Yes (Anxiety) Hx Asthma: Yes Additional medical history: Intubated x 8. heart murmur. osteoporosis. hearing loss in [place] - Surgical History Past Surgical History?: No Additional Surgical History: cataracts, nasal surg, tubal ligation. bilateral foot - Family History Family history: no significant - Social History Smoking Status: Never Smoker Substance Use Type: None - Medications Home Medications: Home Medications Medication Instructions Recorded Confirmed Last Taken Type Aspirin [Aspirin BABY CHEW TAB] 81 mg PO QDAY #30 tab.chew 06/15/13 07/10/16 Rx Gabapentin [Neurontin] 300 mg PO Q8HR 03/02/15 09/02/16 07/09/16 History Meloxicam [Mobic] 7.5 mg PO QDAY 03/02/15 07/10/16 07/09/16 History Lisinopril [Zestril TAB] 20 mg PO QDAY tablet 06/16/15 09/02/16 07/09/16 Rx Loratadine [Claritin] 10 mg PO QDAY tablet 06/16/15 09/02/16 07/09/16 Rx Montelukast [Singulair] 10 mg PO QHS tablet 06/16/15 07/10/16 07/09/16 Rx Budesoni/Formotero 160-4.5(Nf) 1 puff IH BID #1 inha 10/26/15 09/02/16 07/09/16 Rx [Symbicort 160-4.5 (Nf)] Ipratropium/Albuterol Sulfate 1 ampul IH Q4HR #1 box 03/15/16 09/02/16 07/09/16 Rx [Duoneb 0.5 mg-3 mg/3 ml Soln] Diazepam Tab [Valium] 2 mg PO TID PRN #10 tablet 04/05/16 09/02/16 07/09/16 Rx Fluticasone [Flonase] 1 spray NS QDAY #1 bottle 06/03/16 09/02/16 07/09/16 Rx ALBUTEROL Inhaler [ProAir HFA 2 puff IH QID PRN #1 inhalation 07/10/16 Unknown Rx Inhaler] ALBUTEROL NEB's [Proventil 0.083% 2.5 mg IH TID PRN #60 neb 07/10/16 Unknown Rx NEBS] Mometasone Furoate [Asmanex] 220 mcg IH QDAY #1 aer.pow.ba 07/10/16 09/02/16 Unknown Rx Fluticasone/Salmeterol [Advair 2 inhalation INHALATION DAILY #1 08/01/16 Unknown Rx Diskus 500-50 mcg] disk.w.dev predniSONE [Deltasone] 50 mg PO QDAY #5 tab 08/01/16 09/02/16 Unknown Rx Azithromycin [Zithromax Z-MERARY] 0 mg PO DAILY #6 tab 09/02/16 Unknown Rx Benzonatate [Tessalon Perles] 100 mg PO Q8HR #30 capsule 09/02/16 Unknown Rx Fluticasone/Salmeterol [Advair 1 puff IH BID #1 disk.w.dev 09/02/16 Unknown Rx Diskus 500-50 mcg] Prednisone [predniSONE 10 mg 10 mg PO .TAPER #1 tab.ds.pk 09/02/16 Unknown Rx (6-Day Pack, 21 Tabs)] ED Review of Systems ROS: Stated complaint: ASTHMA/WHEEZING Other details as noted in HPI Comment: All other systems reviewed and negative Constitutional: fever (?) Eyes: denies: eye pain, eye discharge, vision change ENT: denies: ear pain, throat pain Respiratory: cough, shortness of breath, wheezing Cardiovascular: denies: chest pain, palpitations Endocrine: no symptoms reported Gastrointestinal: denies: abdominal pain, nausea, diarrhea Genitourinary: denies: urgency, dysuria, discharge Musculoskeletal: denies: back pain, joint swelling, arthralgia Skin: denies: rash, lesions Neurological: denies: headache, weakness, paresthesias Psychiatric: denies: anxiety, depression Hematological/Lymphatic: denies: easy bleeding, easy bruising Physical Exam - Physical Exam Vital Signs: Vital Signs 09/02/16 09/02/16 09/02/16 18:02 18:21 18:31 Temperature 98.3 F Pulse Rate 90 Pulse Rate [ 90 94 H Anterior Bilateral Throughout] Respiratory 18 Rate Respiratory 24 24 Rate [Anterior Bilateral Throughout] Blood Pressure 139/93 Blood Pressure 139/93 [Right] O2 Sat by Pulse 96 Oximetry 09/02/16 09/02/16 18:56 18:57 Temperature 98.2 F Pulse Rate 87 Pulse Rate [ Anterior Bilateral Throughout] Respiratory 12 12 Rate Respiratory Rate [Anterior Bilateral Throughout] Blood Pressure Blood Pressure 132/92 [Right] O2 Sat by Pulse 100 100 Oximetry Physical Exam: GENERAL: The patient is well-developed well-nourished female lying on stretcher with audible wheezing. [] HEENT: Normocephalic. Atraumatic. Extraocular motions are intact. Patient has moist mucous membranes. NECK: Supple. Trachea midline CHEST/LUNGS: Diffuse wheezing auscultated. Moderately labored respiration HEART/CARDIOVASCULAR: Regular. There is no tachycardia. There is no gallop rub or murmur. ABDOMEN: Abdomen is soft, nontender. Patient has normal bowel sounds. There is no abdominal distention. SKIN: There is no rash. There is no diaphoresis. NEURO: The patient is awake, alert, and oriented. The patient is cooperative. The patient has normal speech MUSCULOSKELETAL: There is no evidence of acute injury. ED Course Vital Signs 09/02/16 09/02/16 09/02/16 18:02 18:21 18:31 Temperature 98.3 F Pulse Rate 90 Pulse Rate [ 90 94 H Anterior Bilateral Throughout] Respiratory 18 Rate Respiratory 24 24 Rate [Anterior Bilateral Throughout] Blood Pressure 139/93 Blood Pressure 139/93 [Right] O2 Sat by Pulse 96 Oximetry 05/19/17 05/19/17 18:56 18:57 Temperature 98.2 F Pulse Rate 87 Pulse Rate [ Anterior Bilateral Throughout] Respiratory 12 12 Rate Respiratory Rate [Anterior Bilateral Throughout] Blood Pressure Blood Pressure 132/92 [Right] O2 Sat by Pulse 100 100 Oximetry - Reevaluation(s) Reevaluation #1: 09/02/16 23:33 Patient resting comfortably. When awakened patient states she feels better. Lungs clear to auscultation bilaterally ED Medical Decision Making - Radiology Data Radiology results: image reviewed (chest x-ray) interpreted by me: Chest x-ray-no focal infiltrate, no pneumothorax - Differential Diagnosis acute asthma exacerbation, bronchitis, pneumonia Critical care attestation.: If time is entered above; I have spent that time in minutes in the direct care of this critically ill patient, excluding procedure time. ED Disposition Clinical Impression: Acute asthma exacerbation, Shortness of breath, Acute bronchitis Disposition: DISCHARGED TO HOME OR SELFCARE Is pt being admited?: No Does the pt Need Aspirin: No Condition: Stable Instructions: Acute Bronchitis (ED), Asthma (ED) Additional Instructions: Return to the emergency department immediately should you develop worsening symptoms, fever, inability to tolerate food or liquid or any other concerns. Prescriptions: Azithromycin [Zithromax Z-MERARY] 0 mg PO DAILY #6 tab Benzonatate [Tessalon Perles] 100 mg PO Q8HR #30 capsule Fluticasone/Salmeterol [Advair Diskus 500-50 mcg] 1 puff IH BID #1 disk.w.dev Prednisone [predniSONE 10 mg (6-Day Pack, 21 Tabs)] 10 mg PO .TAPER #1 tab.ds.pk Referrals: MAYA CARRIZALES MD [Primary Care Provider] - 3-5 Days KEISHA JAMES MD [Staff Physician] - 3-5 Days (Dr. James is a product test specialist. Please follow up with him for further evaluation) Time of Disposition: 23:33
[2016-09-02 23:35] VITALS: BP 108/65
--- NOTE | 2016-09-03 09:35 | XRay Report ---
AP CHEST :09/02/16 17:50:00 CLINICAL: Shortness of breath and cough. COMPARISON:08/01/16 FINDINGS: Normal heart and pulmonary vasculature. The lungs are normally expanded and clear. The bones and soft tissues are normal. IMPRESSION: No acute cardiopulmonary process.
== END 2016-09-02 23:45 | disposition home or self-care (01) ==
LOC: ED 17:50
DX: J45.901 Unspecified asthma with (acute) exacerbation (principal); J20.9 Acute bronchitis, unspecified; R06.02 Shortness of breath; I10 Essential (primary) hypertension; E11.9 Type 2 diabetes mellitus without complications; K21.9 Gastro-esophageal reflux disease without esophagitis; M19.90 Unspecified osteoarthritis, unspecified site; F41.9 Anxiety disorder, unspecified; M81.0 Age-related osteoporosis without current pathological fracture; Z88.1 Allergy status to other antibiotic agents; Z88.0 Allergy status to penicillin
CPT/HCPCS: 71010; 94640; 94644; 96365; 96375; 99284; J2930; J3475

== ENCOUNTER 2016-09-08 09:11 | Emergency (ER) | payer MEDICARE ==
[2016-09-08] MEDS ORDERED: DUONEB 0.5 MG-3 MG/3 ML SOLN IH ONE ×2 (09:24→10:05)
[2016-09-08] MEDS ORDERED: MAGNESIUM SULFATE 2GM/50ML 2 GM/50 ML BAG IV ONE (10:06)
--- NOTE | 2016-09-08 11:05 | Emergency Department Report ---
ED General Adult HPI - General Chief complaint: Adult Asthma Stated complaint: DIFFICULTY BREATHING Time Seen by Provider: 09/08/16 10:05 Source: patient, EMS Mode of arrival: Stretcher Limitations: No Limitations - History of Present Illness Initial comments: The patient is a poor historian. However, she states that this exacerbation of her asthma with secondary to cleaning with Clorox last night. In addition she states she recently completed a course of prednisone and an antibiotic. She does not have a productive cough she denies chest pain and denies fever or chills. -: Gradual Consistency: constant Improves with: none Worsens with: none Associated Symptoms: denies other symptoms - Related Data Home Medications Medication Instructions Recorded Confirmed Last Taken Gabapentin [Neurontin] 300 mg PO Q8HR 03/02/15 09/02/16 07/09/16 Meloxicam [Mobic] 7.5 mg PO QDAY 03/02/15 07/10/16 07/09/16 Previous Rx's Medication Instructions Recorded Last Taken Type Aspirin [Aspirin BABY CHEW TAB] 81 mg PO QDAY #30 tab.chew 06/15/13 07/09/16 Rx Lisinopril [Zestril TAB] 20 mg PO QDAY tablet 06/16/15 07/09/16 Rx Loratadine [Claritin] 10 mg PO QDAY tablet 06/16/15 07/09/16 Rx Montelukast [Singulair] 10 mg PO QHS tablet 06/16/15 07/09/16 Rx Budesoni/Formotero 160-4.5(Nf) 1 puff IH BID #1 inha 10/26/15 07/09/16 Rx [Symbicort 160-4.5 (Nf)] Ipratropium/Albuterol Sulfate 1 ampul IH Q4HR #1 box 03/15/16 07/09/16 Rx [Duoneb 0.5 mg-3 mg/3 ml Soln] Diazepam Tab [Valium] 2 mg PO TID PRN #10 tablet 04/05/16 07/09/16 Rx Fluticasone [Flonase] 1 spray NS QDAY #1 bottle 06/03/16 07/09/16 Rx ALBUTEROL Inhaler [ProAir HFA 2 puff IH QID PRN #1 inhalation 07/10/16 Unknown Rx Inhaler] ALBUTEROL NEB's [Proventil 0.083% 2.5 mg IH TID PRN #60 neb 07/10/16 Unknown Rx NEBS] Mometasone Furoate [Asmanex] 220 mcg IH QDAY #1 aer.pow.ba 07/10/16 Unknown Rx Fluticasone/Salmeterol [Advair 2 inhalation INHALATION DAILY #1 08/01/16 Unknown Rx Diskus 500-50 mcg] disk.w.dev predniSONE [Deltasone] 50 mg PO QDAY #5 tab 08/01/16 Unknown Rx Azithromycin [Zithromax Z-MERARY] 0 mg PO DAILY #6 tab 09/02/16 Unknown Rx Benzonatate [Tessalon Perles] 100 mg PO Q8HR #30 capsule 09/02/16 Unknown Rx Fluticasone/Salmeterol [Advair 1 puff IH BID #1 disk.w.dev 09/02/16 Unknown Rx Diskus 500-50 mcg] Prednisone [predniSONE 10 mg 10 mg PO .TAPER #1 tab.ds.pk 09/02/16 Unknown Rx (6-Day Pack, 21 Tabs)] Albuterol Sulfate [Ventolin HFA] 2 puff IH Q4H PRN #1 hfa.aer.ad 09/08/16 Unknown Rx predniSONE [Deltasone] 40 mg PO QDAY #12 tab 09/08/16 Unknown Rx Allergies Allergy/AdvReac Type Severity Reaction Status Date / Time amoxicillin Allergy Unknown Verified 06/03/16 11:01 Penicillins Allergy Rash Verified 06/03/16 11:01 seafood Allergy Severe Anaphylaxis Uncoded 05/06/16 14:09 ED Review of Systems ROS: Stated complaint: DIFFICULTY BREATHING Other details as noted in HPI Constitutional: denies: chills, fever Eyes: denies: eye pain, eye discharge, vision change ENT: denies: ear pain, throat pain Respiratory: wheezing. denies: cough Cardiovascular: denies: chest pain, palpitations Endocrine: no symptoms reported Gastrointestinal: denies: abdominal pain, nausea, diarrhea Genitourinary: denies: urgency, dysuria, discharge Musculoskeletal: denies: back pain, joint swelling, arthralgia Skin: denies: rash, lesions Neurological: denies: headache, weakness, paresthesias Psychiatric: denies: anxiety, depression Hematological/Lymphatic: denies: easy bleeding, easy bruising ED Past Medical Hx - Past Medical History Previous Medical History?: Yes Hx Hypertension: Yes Hx Heart Attack/AMI: No Hx Congestive Heart Failure: No Hx Diabetes: Yes Hx Pulmonary Embolism: No Hx GERD: Yes Hx Liver Disease: No Hx Renal Disease: No Hx Sickle Cell Disease: No Hx Arthritis: Yes Hx Headaches / Migraines: No Hx Seizures: No Hx Kidney Stones: No Hx Psychiatric Treatment: Yes (Anxiety) Hx Asthma: Yes Hx Tuberculosis: No Hx HIV: No Additional medical history: Intubated x 8. heart murmur. osteoporosis. hearing loss in [place] - Surgical History Past Surgical History?: Yes Hx Coronary Stent: No Hx Open Heart Surgery: No Hx Pacemaker: No Hx Internal Defibrillator: No Hx Cholecystectomy: No Hx Appendectomy: No Hx Breast Surgery: No Additional Surgical History: cataracts, nasal surg, tubal ligation. bilateral foot - Social History Smoking Status: Never Smoker Substance Use Type: None - Medications Home Medications: Home Medications Medication Instructions Recorded Confirmed Last Taken Type Aspirin [Aspirin BABY CHEW TAB] 81 mg PO QDAY #30 tab.chew 06/15/13 07/10/16 Rx Gabapentin [Neurontin] 300 mg PO Q8HR 03/02/15 09/02/16 07/09/16 History Meloxicam [Mobic] 7.5 mg PO QDAY 03/02/15 07/10/16 07/09/16 History Lisinopril [Zestril TAB] 20 mg PO QDAY tablet 06/16/15 09/02/16 07/09/16 Rx Loratadine [Claritin] 10 mg PO QDAY tablet 06/16/15 09/02/16 07/09/16 Rx Montelukast [Singulair] 10 mg PO QHS tablet 06/16/15 07/10/16 07/09/16 Rx Budesoni/Formotero 160-4.5(Nf) 1 puff IH BID #1 inha 10/26/15 09/02/16 07/09/16 Rx [Symbicort 160-4.5 (Nf)] Ipratropium/Albuterol Sulfate 1 ampul IH Q4HR #1 box 03/15/16 09/02/16 07/09/16 Rx [Duoneb 0.5 mg-3 mg/3 ml Soln] Diazepam Tab [Valium] 2 mg PO TID PRN #10 tablet 04/05/16 09/02/16 07/09/16 Rx Fluticasone [Flonase] 1 spray NS QDAY #1 bottle 06/03/16 09/02/16 07/09/16 Rx ALBUTEROL Inhaler [ProAir HFA 2 puff IH QID PRN #1 inhalation 07/10/16 Unknown Rx Inhaler] ALBUTEROL NEB's [Proventil 0.083% 2.5 mg IH TID PRN #60 neb 07/10/16 Unknown Rx NEBS] Mometasone Furoate [Asmanex] 220 mcg IH QDAY #1 aer.pow.ba 07/10/16 09/02/16 Unknown Rx Fluticasone/Salmeterol [Advair 2 inhalation INHALATION DAILY #1 08/01/16 Unknown Rx Diskus 500-50 mcg] disk.w.dev predniSONE [Deltasone] 50 mg PO QDAY #5 tab 08/01/16 09/02/16 Unknown Rx Azithromycin [Zithromax Z-MERARY] 0 mg PO DAILY #6 tab 09/02/16 Unknown Rx Benzonatate [Tessalon Perles] 100 mg PO Q8HR #30 capsule 09/02/16 Unknown Rx Fluticasone/Salmeterol [Advair 1 puff IH BID #1 disk.w.dev 09/02/16 Unknown Rx Diskus 500-50 mcg] Prednisone [predniSONE 10 mg 10 mg PO .TAPER #1 tab.ds.pk 09/02/16 Unknown Rx (6-Day Pack, 21 Tabs)] Albuterol Sulfate [Ventolin HFA] 2 puff IH Q4H PRN #1 hfa.aer.ad 09/08/16 Unknown Rx predniSONE [Deltasone] 40 mg PO QDAY #12 tab 09/08/16 Unknown Rx ED Physical Exam - General Limitations: No Limitations General appearance: alert, in no apparent distress - Head Head exam: Present: atraumatic, normocephalic - Eye Eye exam: Present: normal appearance, PERRL, EOMI. Absent: scleral icterus - ENT ENT exam: Present: mucous membranes moist - Neck Neck exam: Present: normal inspection - Respiratory Respiratory exam: Present: wheezes. Absent: respiratory distress - Cardiovascular Cardiovascular Exam: Present: regular rate, normal rhythm. Absent: systolic murmur, diastolic murmur, rubs, gallop - GI/Abdominal GI/Abdominal exam: Present: soft, normal bowel sounds. Absent: distended, tenderness, guarding, rebound, rigid - Extremities Exam Extremities exam: Present: normal inspection, normal capillary refill. Absent: pedal edema, joint swelling, calf tenderness - Back Exam Back exam: Present: normal inspection - Neurological Exam Neurological exam: Present: alert, oriented X3, CN II-XII intact. Absent: motor sensory deficit - Psychiatric Psychiatric exam: Present: normal affect, normal mood - Skin Skin exam: Present: warm, dry, intact, normal color. Absent: rash ED Course Vital Signs 09/08/16 09/08/16 09/08/16 09:18 09:26 09:31 Pulse Rate [ 95 H Posterior Bilateral Throughout] Respiratory Rate Respiratory 15 Rate [Posterior Bilateral Throughout] Blood Pressure 142/89 O2 Sat by Pulse 100 100 Oximetry 09/08/16 09/08/16 09/08/16 09:45 09:55 09:56 Pulse Rate [ 109 H Posterior Bilateral Throughout] Respiratory 24 Rate Respiratory 20 Rate [Posterior Bilateral Throughout] Blood Pressure 151/91 O2 Sat by Pulse 100 100 Oximetry 09/08/16 09/08/16 09/08/16 10:01 10:07 10:30 Pulse Rate [ 96 H 98 H Posterior Bilateral Throughout] Respiratory Rate Respiratory 18 20 Rate [Posterior Bilateral Throughout] Blood Pressure 140/73 O2 Sat by Pulse 100 Oximetry - Reevaluation(s) Reevaluation #1: Patient is given albuterol and route. She was given duo nebs on arrival. She was given magnesium and Solu-Medrol here. At this time her wheezing has resolved. She feels ready for discharge. 09/08/16 11:04 Critical care attestation.: If time is entered above; I have spent that time in minutes in the direct care of this critically ill patient, excluding procedure time. ED Disposition Clinical Impression: Exacerbation of asthma Disposition: DISCHARGED TO HOME OR SELFCARE Is pt being admited?: No Does the pt Need Aspirin: No Condition: Stable Additional Instructions: Return any acute change or problem. Obviously avoid cleaning fumes and any respiratory irritant such as smoking. Follow-up with usual primary care physician. Return as needed. Prescriptions: Albuterol Sulfate [Ventolin HFA] 2 puff IH Q4H PRN #1 hfa.aer.ad PRN Reason: Shortness Of Breath predniSONE [Deltasone] 40 mg PO QDAY #12 tab Referrals: PRIMARY CARE, [Primary Care Provider] - 3-5 Days Time of Disposition: 11:05
[2016-09-08 11:21] VITALS: BP 121/60
== END 2016-09-08 11:21 | disposition home or self-care (01) ==
LOC: ED 09:11
DX: J45.901 Unspecified asthma with (acute) exacerbation (principal); I10 Essential (primary) hypertension; E11.9 Type 2 diabetes mellitus without complications; K21.9 Gastro-esophageal reflux disease without esophagitis; M19.90 Unspecified osteoarthritis, unspecified site; F41.9 Anxiety disorder, unspecified; Z98.51 Tubal ligation status; Z88.0 Allergy status to penicillin; Z88.1 Allergy status to other antibiotic agents; Z91.013 Allergy to seafood
CPT/HCPCS: 94640; 96365; 96375; 99284; J2930; J3475

== ENCOUNTER 2016-11-18 17:51 | Emergency (ER) | payer MEDICARE ==
[2016-11-18] MEDS ORDERED: MOTRIN ONE (20:07)
[2016-11-18] MEDS: MOTRIN PO ONE (20:13)
--- NOTE | 2016-11-18 21:33 | Emergency Department Report ---
HPI - General Chief Complaint: Extremity Problem,Nontraumatic Time Seen by Provider: 11/18/16 21:27 - HPI HPI: 51-year-old female with a history of chronic pain for the past 5 years presents to ED complaining of force name left lower head pain radiating down her thighs. Patient states she did not fall or sustain any new injuries. She just states pain is throbbing in nature, sharp sometimes and sometimes radiated to down her thighs. She denies calf pain or lower leg pain, fever, chills, nausea, vomiting , shortness of breath or chest pain ED Past Medical Hx - Past Medical History Previous Medical History?: Yes Hx Hypertension: Yes Hx Heart Attack/AMI: No Hx Congestive Heart Failure: No Hx Diabetes: Yes Hx Pulmonary Embolism: No Hx GERD: Yes Hx Liver Disease: No Hx Renal Disease: No Hx Sickle Cell Disease: No Hx Arthritis: Yes Hx Headaches / Migraines: No Hx Seizures: No Hx Kidney Stones: No Hx Psychiatric Treatment: Yes (Anxiety) Hx Asthma: Yes Hx Tuberculosis: No Hx HIV: No Additional medical history: Intubated x 8. heart murmur. osteoporosis. hearing loss in [place] - Surgical History Past Surgical History?: Yes Hx Coronary Stent: No Hx Open Heart Surgery: No Hx Pacemaker: No Hx Internal Defibrillator: No Hx Cholecystectomy: No Hx Appendectomy: No Hx Breast Surgery: No Additional Surgical History: cataracts, nasal surg, tubal ligation. bilateral foot - Social History Smoking Status: Never Smoker Substance Use Type: None - Medications Home Medications: Home Medications Medication Instructions Recorded Confirmed Last Taken Type Aspirin [Aspirin BABY CHEW TAB] 81 mg PO QDAY #30 tab.chew 06/15/13 11/18/1608/01 Rx Gabapentin [Neurontin] 300 mg PO Q8HR 03/02/15 11/18/16 11/18/16 History Lisinopril [Zestril TAB] 20 mg PO QDAY tablet 06/16/15 11/18/16 1 Day Ago Rx Loratadine [Claritin] 10 mg PO QDAY tablet 06/16/15 11/18/16 11/18/16 Rx Montelukast [Singulair] 10 mg PO QHS tablet 06/16/15 11/18/16 11/18/16 Rx Budesoni/Formotero 160-4.5(Nf) 1 puff IH BID #1 inha 10/26/15 11/18/16 11/18/16 Rx [Symbicort 160-4.5 (Nf)] Ipratropium/Albuterol Sulfate 1 ampul IH Q4HR #1 box 03/15/16 11/18/16 11/18/16 Rx [DUONEB *Not for PRN Use*] Fluticasone [Flonase] 1 spray NS QDAY #1 bottle 06/03/16 11/18/16 11/18/16 Rx ALBUTEROL Inhaler [ProAir HFA 2 puff IH QID PRN #1 inhalation 07/10/16 11/18/16 11/18/16 Rx Inhaler] ALBUTEROL NEB's [Proventil 0.083% 2.5 mg IH TID PRN #60 neb 07/10/16 11/18/16 Rx NEBS] Mometasone Furoate [Asmanex] 220 mcg IH QDAY #1 aer.pow.ba 07/10/16 11/18/16 1 Day Ago Rx Fluticasone/Salmeterol [Advair 2 inhalation INHALATION DAILY #1 08/01/1611/18/16 Rx Diskus 500-50 mcg] disk.w.dev Fluticasone/Salmeterol [Advair 1 puff IH BID #1 disk.w.dev 09/02/16 11/18/1608/01 Rx Diskus 500-50 mcg] Albuterol Sulfate [Ventolin HFA] 2 puff IH Q4H PRN #1 hfa.aer.ad 09/08/1611/18/16 Rx Diazepam Tab [Valium] 2 mg PO TID PRN #10 tablet 11/18/16 Unknown Rx Meloxicam [Mobic] 7.5 mg PO BID #24 tablet 11/18/16 Unknown Rx ED Review of Systems ROS: Stated complaint: HIP PAIN Other details as noted in HPI Constitutional: denies: chills, fever Eyes: denies: eye pain, eye discharge, vision change ENT: denies: ear pain, throat pain Respiratory: denies: cough, shortness of breath, wheezing Cardiovascular: denies: chest pain, palpitations Endocrine: no symptoms reported Gastrointestinal: denies: abdominal pain, nausea, diarrhea Genitourinary: denies: urgency, dysuria, discharge Musculoskeletal: myalgia. denies: back pain, joint swelling, arthralgia Skin: denies: rash, lesions Neurological: denies: headache, weakness, paresthesias Psychiatric: denies: anxiety, depression Hematological/Lymphatic: denies: easy bleeding, easy bruising Physical Exam - Physical Exam Vital Signs: Vital Signs 11/18/16 19:37 Temperature 99.3 F Pulse Rate 89 Respiratory 20 Rate Blood Pressure 166/75 [Right] O2 Sat by Pulse 99 Oximetry Physical Exam: GENERAL: Alert and oriented x3, no apparent distress, Normal Gait, atraumatic. HEAD: Head is normocephalic and a-traumatic. EYES: Extra ocular muscles are intact. Pupils are equal, round, and reactive to light and accommodation. NECK: Supple. Non edematous, No lymphadenopathy or thyromegaly. LUNGS: Symetrical with respiration, No wheezing, no rales or crackles, CTAB. HEART: S1, S2 present, regular rate and rhythm without murmur, no rubs, no gallops. Non tender to palpation ABDOMEN: No organomegaly was noted,Positive bowel sounds, soft, and non- distended. Nontender to palpation on all Quadrants, NO CVA tenderness. EXTREMITIES/MUSCULOSKELETAL: No cyanosis, clubbing, rash, lesions or edema. Full ROM bilaterally. UE/LE Pulses 2+ bilaterally. Straight leg raise positive on left side. No calf tenderness tenderness bilaterally NEUROLOGIC: The patient is cooperative with no focal neurologic deficits. Cranial nerves II through XII are grossly intact. Normal speech. PSYCHIATRIC: Mood is congruent with affect, denies suicidal or homicidal ideations. SKIN: Warm and dry, No lesions, No ulceration or induration present. ED Course Vital Signs 11/18/16 19:37 Temperature 99.3 F Pulse Rate 89 Respiratory 20 Rate Blood Pressure 166/75 [Right] O2 Sat by Pulse 99 Oximetry ED Medical Decision Making - Medical Decision Making 51-year-old female presents with lumbar radiculopathy ED course: Patient received Motrin, prednisone ED. Discussed need to follow up with orthopedic doctor, referral was given Vital signs are normal patient is in no acute distress. Discussed with patient his new symptoms to return to ED. Critical care attestation.: If time is entered above; I have spent that time in minutes in the direct care of this critically ill patient, excluding procedure time. ED Disposition Clinical Impression: Lumbar radiculopathy Sciatica Qualifiers: Laterality: left Qualified Code(s): M54.32 - Sciatica, left side Disposition: TO HOME OR SELFCARE Is pt being admited?: No Does the pt Need Aspirin: No Condition: Stable Instructions: Lumbar Radiculopathy (ED), Chronic Back Pain (ED) Additional Instructions: Follow-up with orthopedic doctor has referred To give medication as prescribed Prescriptions: Diazepam Tab [Valium] 2 mg PO TID PRN #10 tablet PRN Reason: Muscle Spasm Meloxicam [Mobic] 7.5 mg PO BID #24 tablet Referrals: PRIMARY CAREMD [Primary Care Provider] - 3-5 Days JANICE TORRES MD [Staff Physician] - 3-5 Days Forms: Accompanied Note, Work/School Release Form(ED) Time of Disposition: 22:14
[2016-11-18] MEDS: DECADRON IM ONE (22:33)
[2016-11-18] MEDS: FLEXERIL PO ONE (22:33)
[2016-11-18 22:55] VITALS: BP 113/68
== END 2016-11-18 22:55 | disposition home or self-care (01) ==
LOC: ED 17:51
DX: M54.16 Radiculopathy, lumbar region (principal); M54.32 Sciatica, left side; I10 Essential (primary) hypertension; E11.9 Type 2 diabetes mellitus without complications; J45.909 Unspecified asthma, uncomplicated
CPT/HCPCS: 96372; 99282; J1100

== ENCOUNTER 2016-11-30 15:43 | Emergency (ER) | payer MEDICARE ==
[2016-11-30] MEDS ORDERED: PROVENTIL IH ONE (15:55)
[2016-11-30] MEDS ORDERED: DELTASONE PO ONE (19:31)
[2016-11-30] MEDS ORDERED: DUONEB *Not for PRN Use IH ONE ×2 (19:31→21:05)
--- NOTE | 2016-11-30 19:39 | Emergency Department Report ---
ED Asthma HPI - General Chief Complaint: Adult Asthma Stated Complaint: ASTHMA ATTACK Time Seen by Provider: 11/30/16 19:16 Source: patient Mode of arrival: Ambulatory Limitations: No Limitations - Related Data Home Medications Medication Instructions Recorded Confirmed Last Taken Gabapentin [Neurontin] 300 mg PO Q8HR 03/02/15 11/18/16 11/18/16 Previous Rx's Medication Instructions Recorded Last Taken Type Aspirin [Aspirin BABY CHEW TAB] 81 mg PO QDAY #30 tab.chew 06/15/13 11/18/16 Rx Lisinopril [Zestril TAB] 20 mg PO QDAY tablet 06/16/15 1 Day Ago Rx Loratadine [Claritin] 10 mg PO QDAY tablet 06/16/15 11/18/16 Rx Montelukast [Singulair] 10 mg PO QHS tablet 06/16/15 11/18/16 Rx Budesoni/Formotero 160-4.5(Nf) 1 puff IH BID #1 inha 10/26/15 11/18/16 Rx [Symbicort 160-4.5 (Nf)] Ipratropium/Albuterol Sulfate 1 ampul IH Q4HR #1 box 03/15/16 11/18/16 Rx [DUONEB *Not for PRN Use*] Fluticasone [Flonase] 1 spray NS QDAY #1 bottle 06/03/16 11/18/16 Rx ALBUTEROL Inhaler [ProAir HFA 2 puff IH QID PRN #1 inhalation 07/10/16 11/18/16 Rx Inhaler] ALBUTEROL NEB's [Proventil 0.083% 2.5 mg IH TID PRN #60 neb 07/10/16 11/18/16 Rx NEBS] Mometasone Furoate [Asmanex] 220 mcg IH QDAY #1 aer.pow.ba 07/10/16 1 Day Ago Rx Fluticasone/Salmeterol [Advair 2 inhalation INHALATION DAILY #1 08/01/16 Rx Diskus 500-50 mcg] disk.w.dev Fluticasone/Salmeterol [Advair 1 puff IH BID #1 disk.w.dev 09/02/16 11/18/16 Rx Diskus 500-50 mcg] Albuterol Sulfate [Ventolin HFA] 2 puff IH Q4H PRN #1 hfa.aer.ad 09/08/16 Rx Diazepam Tab [Valium] 2 mg PO TID PRN #10 tablet 11/18/16 Unknown Rx Meloxicam [Mobic] 7.5 mg PO BID #24 tablet 11/18/16 Unknown Rx Allergies Allergy/AdvReac Type Severity Reaction Status Date / Time amoxicillin Allergy Unknown Verified 06/03/16 11:01 Penicillins Allergy Rash Verified 06/03/16 11:01 seafood Allergy Severe Anaphylaxis Uncoded 05/06/16 14:09 ED Review of Systems ROS: Stated complaint: ASTHMA ATTACK Other details as noted in HPI ED Past Medical Hx - Past Medical History Hx Hypertension: Yes Hx Heart Attack/AMI: No Hx Congestive Heart Failure: No Hx Diabetes: Yes Hx Pulmonary Embolism: No Hx GERD: Yes Hx Liver Disease: No Hx Renal Disease: No Hx Sickle Cell Disease: No Hx Arthritis: Yes Hx Headaches / Migraines: No Hx Seizures: No Hx Kidney Stones: No Hx Psychiatric Treatment: Yes (Anxiety) Hx Asthma: Yes Hx Tuberculosis: No Hx HIV: No Additional medical history: Intubated x 8. heart murmur. osteoporosis. hearing loss in [place] - Surgical History Past Surgical History?: Yes Hx Coronary Stent: No Hx Open Heart Surgery: No Hx Pacemaker: No Hx Internal Defibrillator: No Hx Cholecystectomy: No Hx Appendectomy: No Hx Breast Surgery: No Additional Surgical History: cataracts, nasal surg, tubal ligation. bilateral foot - Social History Smoking Status: Never Smoker Substance Use Type: None - Medications Home Medications: Home Medications Medication Instructions Recorded Confirmed Last Taken Type Aspirin [Aspirin BABY CHEW TAB] 81 mg PO QDAY #30 tab.chew 06/15/13 11/18/1608/01 Rx Gabapentin [Neurontin] 300 mg PO Q8HR 03/02/15 11/18/16 11/18/16 History Lisinopril [Zestril TAB] 20 mg PO QDAY tablet 06/16/15 11/18/16 1 Day Ago Rx Loratadine [Claritin] 10 mg PO QDAY tablet 06/16/15 11/18/16 11/18/16 Rx Montelukast [Singulair] 10 mg PO QHS tablet 06/16/15 11/18/16 11/18/16 Rx Budesoni/Formotero 160-4.5(Nf) 1 puff IH BID #1 inha 10/26/15 11/18/16 11/18/16 Rx [Symbicort 160-4.5 (Nf)] Ipratropium/Albuterol Sulfate 1 ampul IH Q4HR #1 box 03/15/16 11/18/16 11/18/16 Rx [DUONEB *Not for PRN Use*] Fluticasone [Flonase] 1 spray NS QDAY #1 bottle 06/03/16 11/18/16 11/18/16 Rx ALBUTEROL Inhaler [ProAir HFA 2 puff IH QID PRN #1 inhalation 07/10/16 11/18/16 11/18/16 Rx Inhaler] ALBUTEROL NEB's [Proventil 0.083% 2.5 mg IH TID PRN #60 neb 07/10/16 11/18/16 Rx NEBS] Mometasone Furoate [Asmanex] 220 mcg IH QDAY #1 aer.pow.ba 07/10/16 11/18/16 1 Day Ago Rx Fluticasone/Salmeterol [Advair 2 inhalation INHALATION DAILY #1 08/01/1611/18/16 Rx Diskus 500-50 mcg] disk.w.dev Fluticasone/Salmeterol [Advair 1 puff IH BID #1 disk.w.dev 09/02/16 11/18/1608/01 Rx Diskus 500-50 mcg] Albuterol Sulfate [Ventolin HFA] 2 puff IH Q4H PRN #1 hfa.aer.ad 09/08/1611/18/16 Rx Diazepam Tab [Valium] 2 mg PO TID PRN #10 tablet 11/18/16 Unknown Rx Meloxicam [Mobic] 7.5 mg PO BID #24 tablet 11/18/16 Unknown Rx ED Physical Exam - General Limitations: No Limitations ED Course Vital Signs 11/30/16 11/30/16 11/30/16 15:48 16:08 16:22 Temperature 99 F Pulse Rate 94 H Pulse Rate [ 96 H 88 Bilateral] Respiratory 20 Rate Respiratory 16 16 Rate [Bilateral ] Blood Pressure 153/83 O2 Sat by Pulse 99 Oximetry Critical care attestation.: If time is entered above; I have spent that time in minutes in the direct care of this critically ill patient, excluding procedure time. ED Disposition Condition: Stable Referrals: PRIMARY CARE, [Primary Care Provider] - 3-5 Days
[2016-11-30] MEDS ORDERED: MAGNESIUM SULFATE 2GM/50ML 2 GM/50 ML BAG IV ONE (19:41)
--- NOTE | 2016-11-30 20:43 | XRay Report ---
FINAL REPORT EXAM: XR CHEST ROUTINE 2V HISTORY: Worsening cough TECHNIQUE: PA and lateral views of the chest PRIORS: None. FINDINGS: Lines, tubes, and devices: N/A Lungs and pleura: Trachea is normal in position. Lungs are clear of infiltrate, pleural effusion, vascular congestion, or pneumothorax. Cardiomediastinal silhouette: Cardiac and mediastinal silhouettes are unremarkable. Other: Bony structures are intact. IMPRESSION: No acute cardiopulmonary process seen.
[2016-11-30 21:26] VITALS: BP 163/90
[2016-11-30] MEDS ORDERED: NORVASC PO ONE (21:28)
--- NOTE | 2016-11-30 23:51 | Emergency Department Report ---
Entered by LEMUEL HILARIO, acting as scribe for ALICIA LION PA. ED Asthma HPI - General Chief Complaint: Adult Asthma Stated Complaint: ASTHMA ATTACK Time Seen by Provider: 11/30/16 19:16 Source: patient Mode of arrival: Ambulatory Limitations: No Limitations - History of Present Illness Initial Comments: 51 y/o female with a PMHx asthma, diabetes mellitus, GERD, HTN, anxiety, hear murmur, and osteoporosis presents to the ED c/o an asthma exacerbation that began 4 days ago. Aggravated with cough and smoke exposure, and alleviated some with inhaler and nebulizer treatment. Reports associated chest tightness, wheezing, and cough with yellow sputum, but she denies fever, chills, nausea, vomiting, headache, and dizziness. Patient states her asthma is exacerbated by her neighbors smoking. Took nebulizer treatment and Advair with no relief. Notes Hx of bronchitis. Denies tobacco use. Patient is able to answer questions and speak in full sentences without difficulty. Allergic to amoxicillin and penicillin. MD Complaint: "asthma attack", wheezing Onset/Timin -: days(s) Asthma History: history of frequent attac Severity: moderate, similar to prior Context: smoke exposure Associated Symptoms: productive cough (with yellow sputum), chest pain (chest tightness). denies: dry cough, fever, hemoptysis, leg edema, syncope Treatments Prior to Arrival: inhaled steroid - Related Data Current Asthma Therapy: inhaled steroid Home Medications Medication Instructions Recorded Confirmed Last Taken Gabapentin [Neurontin] 300 mg PO Q8HR 03/02/15 11/18/16 11/18/16 Previous Rx's Medication Instructions Recorded Last Taken Type Aspirin [Aspirin BABY CHEW TAB] 81 mg PO QDAY #30 tab.chew 06/15/13 11/18/16 Rx Lisinopril [Zestril TAB] 20 mg PO QDAY tablet 06/16/15 1 Day Ago Rx Loratadine [Claritin] 10 mg PO QDAY tablet 06/16/15 11/18/16 Rx Montelukast [Singulair] 10 mg PO QHS tablet 06/16/15 11/18/16 Rx Fluticasone [Flonase] 1 spray NS QDAY #1 bottle 06/03/16 11/18/16 Rx ALBUTEROL Inhaler [ProAir HFA 2 puff IH QID PRN #1 inhalation 07/10/16 11/18/16 Rx Inhaler] Mometasone Furoate [Asmanex] 220 mcg IH QDAY #1 aer.pow.ba 07/10/16 1 Day Ago Rx Fluticasone/Salmeterol [Advair 2 inhalation INHALATION DAILY #1 08/01/16 Rx Diskus 500-50 mcg] disk.w.dev Albuterol Sulfate [Ventolin HFA] 2 puff IH Q4H PRN #1 hfa.aer.ad 09/08/16 Rx Diazepam Tab [Valium] 2 mg PO TID PRN #10 tablet 11/18/16 Unknown Rx Meloxicam [Mobic] 7.5 mg PO BID #24 tablet 11/18/16 Unknown Rx ALBUTEROL NEB's [Proventil 0.083% 2.5 mg IH TID PRN #60 neb 11/30/16 Unknown Rx NEBS] Albuterol Sulfate [Ventolin HFA] 2 puff IH Q4H PRN #1 hfa.aer.ad 11/30/16 Unknown Rx Azithromycin [Zithromax Z-MERARY] 250 mg PO QDAY #6 tablet 11/30/16 Unknown Rx Budesoni/Formotero 160-4.5(Nf) 1 puff IH BID #1 inha 11/30/16 Unknown Rx [Symbicort 160-4.5 (Nf)] Fluticasone/Salmeterol [Advair 1 puff IH BID #1 disk.w.dev 11/30/16 Unknown Rx Diskus 500-50 mcg] Ipratropium/Albuterol Sulfate 1 ampul IH Q4HR #1 box 11/30/16 Unknown Rx [DUONEB *Not for PRN Use*] Prednisone [predniSONE 10 mg 10 mg PO .TAPER #1 tab.ds.pk 11/30/16 Unknown Rx (6-Day Pack, 21 Tabs)] Allergies Allergy/AdvReac Type Severity Reaction Status Date / Time amoxicillin Allergy Unknown Verified 06/03/16 11:01 Penicillins Allergy Rash Verified 06/03/16 11:01 seafood Allergy Severe Anaphylaxis Uncoded 05/06/16 14:09 ED Review of Systems Comment: All other systems reviewed and negative Constitutional: denies: chills, diaphoresis, fever, weakness Eyes: denies: eye pain, eye discharge, vision change ENT: denies: ear pain, throat pain Respiratory: cough (with yellow sputum), wheezing. denies: orthopnea, shortness of breath, SOB with exertion, SOB at rest, stridor Cardiovascular: chest pain (chest tightness). denies: palpitations, dyspnea on exertion, orthopnea, edema, syncope, paroxysmal nocturnal dyspnea Endocrine: no symptoms reported Gastrointestinal: denies: abdominal pain, nausea, vomiting, diarrhea Musculoskeletal: denies: back pain, joint swelling, arthralgia Skin: denies: rash, lesions Neurological: denies: headache, weakness, numbness, paresthesias ED Past Medical Hx - Past Medical History Previous Medical History?: Yes Hx Hypertension: Yes Hx Heart Attack/AMI: No Hx Congestive Heart Failure: No Hx Diabetes: Yes Hx Pulmonary Embolism: No Hx GERD: Yes Hx Liver Disease: No Hx Renal Disease: No Hx Sickle Cell Disease: No Hx Arthritis: Yes Hx Headaches / Migraines: No Hx Seizures: No Hx Kidney Stones: No Hx Psychiatric Treatment: Yes (Anxiety) Hx Asthma: Yes Hx Tuberculosis: No Hx HIV: No Additional medical history: Intubated x 8. heart murmur. osteoporosis. hearing loss in [place] - Surgical History Past Surgical History?: Yes Hx Coronary Stent: No Hx Open Heart Surgery: No Hx Pacemaker: No Hx Internal Defibrillator: No Hx Cholecystectomy: No Hx Appendectomy: No Hx Breast Surgery: No Additional Surgical History: cataracts, nasal surg, tubal ligation. bilateral foot - Family History Family history: no significant - Social History Smoking Status: Never Smoker Substance Use Type: None - Medications Home Medications: Home Medications Medication Instructions Recorded Confirmed Last Taken Type Aspirin [Aspirin BABY CHEW TAB] 81 mg PO QDAY #30 tab.chew 06/15/13 11/18/1608/01 Rx Gabapentin [Neurontin] 300 mg PO Q8HR 03/02/15 11/18/16 11/18/16 History Lisinopril [Zestril TAB] 20 mg PO QDAY tablet 06/16/15 11/18/16 1 Day Ago Rx Loratadine [Claritin] 10 mg PO QDAY tablet 06/16/15 11/18/16 11/18/16 Rx Montelukast [Singulair] 10 mg PO QHS tablet 06/16/15 11/18/16 11/18/16 Rx Fluticasone [Flonase] 1 spray NS QDAY #1 bottle 06/03/16 11/18/16 11/18/16 Rx ALBUTEROL Inhaler [ProAir HFA 2 puff IH QID PRN #1 inhalation 07/10/16 11/18/16 11/18/16 Rx Inhaler] Mometasone Furoate [Asmanex] 220 mcg IH QDAY #1 aer.pow.ba 07/10/16 11/18/16 1 Day Ago Rx Fluticasone/Salmeterol [Advair 2 inhalation INHALATION DAILY #1 08/01/1611/18/16 Rx Diskus 500-50 mcg] disk.w.dev Albuterol Sulfate [Ventolin HFA] 2 puff IH Q4H PRN #1 hfa.aer.ad 09/08/1611/18/16 Rx Diazepam Tab [Valium] 2 mg PO TID PRN #10 tablet 11/18/16 Unknown Rx Meloxicam [Mobic] 7.5 mg PO BID #24 tablet 11/18/16 Unknown Rx ALBUTEROL NEB's [Proventil 0.083% 2.5 mg IH TID PRN #60 neb 11/30/16 Unknown Rx NEBS] Albuterol Sulfate [Ventolin HFA] 2 puff IH Q4H PRN #1 hfa.aer.ad 11/30/16 Unknown Rx Azithromycin [Zithromax Z-MERARY] 250 mg PO QDAY #6 tablet 11/30/16 Unknown Rx Budesoni/Formotero 160-4.5(Nf) 1 puff IH BID #1 inha 11/30/16 Unknown Rx [Symbicort 160-4.5 (Nf)] Fluticasone/Salmeterol [Advair 1 puff IH BID #1 disk.w.dev 11/30/16 Unknown Rx Diskus 500-50 mcg] Ipratropium/Albuterol Sulfate 1 ampul IH Q4HR #1 box 11/30/16 Unknown Rx [DUONEB *Not for PRN Use*] Prednisone [predniSONE 10 mg 10 mg PO .TAPER #1 tab.ds.pk 08/16/17 Unknown Rx (6-Day Pack, 21 Tabs)] ED Physical Exam - General Limitations: No Limitations General appearance: alert, in no apparent distress - Head Head exam: Present: atraumatic, normocephalic - Eye Eye exam: Present: normal appearance, PERRL, EOMI Pupils: Present: normal accommodation - ENT ENT exam: Present: normal exam, mucous membranes moist, normal external ear exam - Neck Neck exam: Present: normal inspection, full ROM. Absent: tenderness, meningismus, lymphadenopathy, thyromegaly - Respiratory Respiratory exam: Present: wheezes (expiratory wheezing in left lung field). Absent: normal lung sounds bilaterally, respiratory distress, rales, rhonchi, stridor, chest wall tenderness, accessory muscle use, decreased breath sounds, prolonged expiratory - Cardiovascular Cardiovascular Exam: Present: regular rate, normal rhythm, normal heart sounds. Absent: systolic murmur, diastolic murmur, rubs, gallop - GI/Abdominal GI/Abdominal exam: Present: soft, normal bowel sounds. Absent: distended - Extremities Exam Extremities exam: Present: normal inspection, full ROM - Back Exam Back exam: Present: normal inspection, full ROM - Neurological Exam Neurological exam: Present: alert, oriented X3, CN II-XII intact, normal gait - Psychiatric Psychiatric exam: Present: normal affect, normal mood - Skin Skin exam: Present: warm, dry, intact. Absent: rash ED Course Vital Signs 11/30/16 11/30/16 11/30/16 15:48 16:08 16:22 Temperature 99 F Pulse Rate 94 H Pulse Rate [ 96 H 88 Bilateral] Respiratory 20 Rate Respiratory 16 16 Rate [Bilateral ] Blood Pressure 153/83 Blood Pressure [Right] O2 Sat by Pulse 99 Oximetry 11/30/16 11/30/16 11/30/16 19:56 20:05 21:25 Temperature 98.2 F Pulse Rate 64 Pulse Rate [ 84 89 Bilateral] Respiratory 20 Rate Respiratory 18 17 Rate [Bilateral ] Blood Pressure Blood Pressure 163/90 [Right] O2 Sat by Pulse 100 Oximetry 11/30/16 21:35 Temperature Pulse Rate 64 Pulse Rate [ Bilateral] Respiratory Rate Respiratory Rate [Bilateral ] Blood Pressure 163/90 Blood Pressure [Right] O2 Sat by Pulse Oximetry ED Medical Decision Making - Medical Decision Making a/p: asthma exacerbation 1- refill on inhaler, nebs, short course prednisone, as pt is exposed to smokers at home with productive cough with yellow-green sputum witl ocver empirically with z-merary, refill on advair disckus 2- referral to PMD and pulmonology, pt states she has missed pulm follow up several times 3- pt feels significantly better after neb treatments, vital signs stable including o2 sat 99% on RA, minimal to no wheezing on auscultation, pt speaking in full sentences, no resp retractions. ED Disposition Clinical Impression: Asthma Qualifiers: Asthma severity: moderate persistent Asthma complication type: uncomplicated Qualified Code(s): J45.40 - Moderate persistent asthma, uncomplicated Disposition: - TO HOME OR SELFCARE Is pt being admited?: No Does the pt Need Aspirin: No Condition: Stable Instructions: Asthma (ED) Prescriptions: ALBUTEROL NEB's [Proventil 0.083% NEBS] 2.5 mg IH TID PRN #60 neb PRN Reason: Wheezing Albuterol Sulfate [Ventolin HFA] 2 puff IH Q4H PRN #1 hfa.aer.ad PRN Reason: Shortness Of Breath Azithromycin [Zithromax Z-MERARY] 250 mg PO QDAY #6 tablet Budesoni/Formotero 160-4.5(Nf) [Symbicort 160-4.5 (Nf)] 1 puff IH BID #1 inha Fluticasone/Salmeterol [Advair Diskus 500-50 mcg] 1 puff IH BID #1 disk.w.dev Ipratropium/Albuterol Sulfate [DUONEB *Not for PRN Use*] 1 ampul IH Q4HR #1 box Prednisone [predniSONE 10 mg (6-Day Pack, 21 Tabs)] 10 mg PO .TAPER #1 tab.ds.pk Referrals: [facility] [Provider Group] - 3-5 Days [facility] [place] [Outside] - 3-5 Days JAMIE DAVENPORT MD [Staff Physician] - 3-5 Days Forms: Work/School Release Form(ED) This documentation as recorded by the YANELIS churchill JASMINE,accurately reflects the service I personally performed and the decisions made by ,ALICIA LION PA.
== END 2016-11-30 21:47 | disposition home or self-care (01) ==
LOC: ED 15:43
DX: J45.40 Moderate persistent asthma, uncomplicated (principal); I10 Essential (primary) hypertension; E11.9 Type 2 diabetes mellitus without complications; K21.9 Gastro-esophageal reflux disease without esophagitis; M19.90 Unspecified osteoarthritis, unspecified site; F41.9 Anxiety disorder, unspecified; Z88.1 Allergy status to other antibiotic agents; Z91.013 Allergy to seafood; Z88.0 Allergy status to penicillin; Z79.01 Long term (current) use of anticoagulants
CPT/HCPCS: 71020; 82962; 94640; 96365; 96375; 99284; J2930; J3475

== ENCOUNTER 2016-12-12 21:05 | Inpatient (IN) | payer MEDICARE ==
[2016-12-12] MEDS ORDERED: NITRO-BID 2% TP ONE (22:36)
--- NOTE | 2016-12-12 22:49 | Emergency Department Report ---
HPI - General Chief Complaint: Adult Asthma Time Seen by Provider: 12/12/16 22:16 - HPI HPI: Room 10 The patient is a 51-year-old female presenting with chief complaint of chest pain and shortness of breath. The patient states she developed substernal chest pain described as tightness that has been intermittent since last night. Patient states this morning she noted shortness of breath and wheezing consistent with her asthma. Patient does admit to nausea and vomiting. EMS was called and administered albuterol, Solu-Medrol and magnesium sulfate. Patient states she feels a little better but still has the intermittent chest pain. The patient states her last stress test was approximately one year ago and she believes it was abnormal. The patient states she's never had a cardiac catheterization ED Past Medical Hx - Past Medical History Previous Medical History?: Yes Hx Hypertension: Yes Hx Diabetes: Yes Hx GERD: Yes Hx Arthritis: Yes Hx Psychiatric Treatment: Yes (Anxiety) Hx Asthma: Yes Additional medical history: Intubated x 8. heart murmur. osteoporosis. hearing loss in [place] - Surgical History Past Surgical History?: Yes Additional Surgical History: cataracts, nasal surg, tubal ligation. bilateral foot - Family History Family history: no significant - Social History Smoking Status: Never Smoker Substance Use Type: None - Medications Home Medications: Home Medications Medication Instructions Recorded Confirmed Last Taken Type Aspirin [Aspirin BABY CHEW TAB] 81 mg PO QDAY #30 tab.chew 06/15/13 11/18/1608/01 Rx Gabapentin [Neurontin] 300 mg PO Q8HR 03/02/15 11/18/16 11/18/16 History Lisinopril [Zestril TAB] 20 mg PO QDAY tablet 06/16/15 11/18/16 1 Day Ago Rx Loratadine [Claritin] 10 mg PO QDAY tablet 06/16/15 11/18/16 11/18/16 Rx Montelukast [Singulair] 10 mg PO QHS tablet 06/16/15 11/18/16 11/18/16 Rx Fluticasone [Flonase] 1 spray NS QDAY #1 bottle 06/03/16 11/18/16 11/18/16 Rx ALBUTEROL Inhaler [ProAir HFA 2 puff IH QID PRN #1 inhalation 07/10/16 11/18/16 11/18/16 Rx Inhaler] Mometasone Furoate [Asmanex] 220 mcg IH QDAY #1 aer.pow.ba 07/10/16 11/18/16 1 Day Ago Rx Fluticasone/Salmeterol [Advair 2 inhalation INHALATION DAILY #1 08/01/1611/18/16 Rx Diskus 500-50 mcg] disk.w.dev Albuterol Sulfate [Ventolin HFA] 2 puff IH Q4H PRN #1 hfa.aer.ad 09/08/1611/18/16 Rx Diazepam Tab [Valium] 2 mg PO TID PRN #10 tablet 11/18/16 Unknown Rx Meloxicam [Mobic] 7.5 mg PO BID #24 tablet 11/18/16 Unknown Rx ALBUTEROL NEB's [Proventil 0.083% 2.5 mg IH TID PRN #60 neb 11/30/16 Unknown Rx NEBS] Albuterol Sulfate [Ventolin HFA] 2 puff IH Q4H PRN #1 hfa.aer.ad 11/30/16 Unknown Rx Azithromycin [Zithromax Z-MERARY] 250 mg PO QDAY #6 tablet 11/30/16 Unknown Rx Budesoni/Formotero 160-4.5(Nf) 1 puff IH BID #1 inha 11/30/16 Unknown Rx [Symbicort 160-4.5 (Nf)] Fluticasone/Salmeterol [Advair 1 puff IH BID #1 disk.w.dev 11/30/16 Unknown Rx Diskus 500-50 mcg] Ipratropium/Albuterol Sulfate 1 ampul IH Q4HR #1 box 11/30/16 Unknown Rx [DUONEB *Not for PRN Use*] Prednisone [predniSONE 10 mg 10 mg PO .TAPER #1 tab.ds.pk 11/30/16 Unknown Rx (6-Day Pack, 21 Tabs)] ED Review of Systems ROS: Stated complaint: SOB Other details as noted in HPI Comment: All other systems reviewed and negative Constitutional: fever (subjective). denies: chills Eyes: denies: eye pain, eye discharge, vision change ENT: denies: ear pain, throat pain Respiratory: cough, shortness of breath, wheezing Cardiovascular: chest pain Endocrine: no symptoms reported Gastrointestinal: nausea, vomiting Genitourinary: denies: urgency, dysuria, discharge Musculoskeletal: denies: back pain, joint swelling, arthralgia Skin: denies: rash, lesions Neurological: denies: headache, weakness, paresthesias Psychiatric: denies: anxiety, depression Hematological/Lymphatic: denies: easy bleeding, easy bruising Physical Exam - Physical Exam Vital Signs: Vital Signs 12/12/16 12/12/16 22:01 22:23 Temperature 98 F Pulse Rate 83 Respiratory 20 18 Rate Blood Pressure 124/83 [Left] O2 Sat by Pulse 98 96 Oximetry Physical Exam: GENERAL: The patient is well-developed well-nourished female lying on stretcher not appearing to be in acute distress. [] HEENT: Normocephalic. Atraumatic. Extraocular motions are intact. Patient has moist mucous membranes. NECK: Supple. Trachea midline CHEST/LUNGS: Clear to auscultation. There is no respiratory distress noted. HEART/CARDIOVASCULAR: Regular. There is no tachycardia. There is no gallop rub or murmur. ABDOMEN: Abdomen is soft, nontender. Patient has normal bowel sounds. There is no abdominal distention. SKIN: There is no rash. There is no edema. There is no diaphoresis. NEURO: The patient is awake, alert, and oriented. The patient is cooperative. The patient has normal speech MUSCULOSKELETAL: There is no evidence of acute injury. ED Course Vital Signs 12/12/16 12/12/16 22:01 22:23 Temperature 98 F Pulse Rate 83 Respiratory 20 18 Rate Blood Pressure 124/83 [Left] O2 Sat by Pulse 98 96 Oximetry ED Medical Decision Making - Lab Data Result diagrams: 12/12/16 22:59 12/12/16 22:59 Laboratory Tests 12/12/16 12/12/16 12/12/16 22:59 22:59 22:59 WBC 6.8 RBC 4.08 Hgb 11.5 Hct 35.6 MCV 87 MCH 28 MCHC 32 RDW 13.8 Plt Count 233 Lymph % (Auto) 13.8 Gregg % (Auto) 2.3 Eos % (Auto) 1.6 Baso % (Auto) 0.5 Lymph # 0.9 L Gregg # 0.2 Eos # 0.1 Baso # 0.0 Seg Neutrophils % 81.8 H Seg Neutrophils # 5.6 Sodium 144 Potassium 4.5 Chloride 107.3 H Carbon Dioxide 27 Anion Gap 14 BUN 7 Creatinine 0.7 Estimated GFR > 60 BUN/Creatinine Ratio 10.00 Glucose 111 H Calcium 8.9 Total Creatine Kinase 208 H CK-MB (CK-2) 1.8 CK-MB (CK-2) Rel Index 0.8 Troponin T < 0.010 - EKG Data -: EKG Interpreted by Me EKG shows normal: sinus rhythm Rate: normal - EKG Data When compared to previous EKG there are: previous EKG unavailable Interpretation: normal EKG - Radiology Data Radiology results: image reviewed (chest x-ray) interpreted by me: Chest x-ray-no focal infiltrates, no pneumothorax - Differential Diagnosis ACS, GERD, pericarditis, asthma exacerbation Critical care attestation.: If time is entered above; I have spent that time in minutes in the direct care of this critically ill patient, excluding procedure time. ED Disposition Clinical Impression: Asthma exacerbation, Chest pain Disposition: 09 OP ADMIT IP TO THIS HOSP Is pt being admited?: Yes Does the pt Need Aspirin: Yes Condition: Fair Instructions: Chest Pain (ED) Time of Disposition: 00:44 (hospitalist paged)
--- NOTE | 2016-12-12 22:58 | XRay Report ---
FINAL REPORT EXAM: XR CHEST ROUTINE 2V HISTORY: Shortness of breath TECHNIQUE: Frontal and lateral chest x-ray. PRIORS: 30 November 2016. FINDINGS: Cardiac and mediastinal silhouette within normal limits. Lungs are mildly hyperinflated, without significant vascular congestion. No focal consolidation, pleural effusions or apparent pneumothorax. IMPRESSION: 1. No acute consolidation.
[2016-12-12 23:27] LABS: Basophils % (Auto) 0.5 % (0.0-1.8); Eosinophils % (Auto) 1.6 % (0.0-4.3); Hematocrit 35.6 % (30.3-42.9); Hemoglobin 11.5 gm/dl (10.1-14.3); Mean Corpuscular HGB Conc 32 % (30-34); Mean Corpuscular Hemoglobin 28 pg (28-32); Mean Corpuscular Volume 87 fl (79-97); Platelet Count 233 K/mm3 (140-440); Red Blood Count 4.08 M/mm3 (3.65-5.03); Red Cell Distribution Width 13.8 % (13.2-15.2); White Blood Count 6.8 K/mm3 (4.5-11.0)
[2016-12-12 23:37] LABS: Blood Urea Nitrogen 7 mg/dL (7-17); Calcium 8.9 mg/dL (8.4-10.2); Carbon Dioxide 27 mmol/L (22-30); Glucose 111 mg/dL (65-100)
[2016-12-12 23:38] LABS: Anion Gap 14 mmol/L; Chloride 107.3 mmol/L (98-107); Creatine Kinase MB 1.8 ng/mL (0.0-4.0); Potassium 4.5 mmol/L (3.6-5.0); Sodium 144 mmol/L (137-145)
[2016-12-13] MEDS ORDERED: TYLENOL PO PRN (02:54)
[2016-12-13] MEDS ORDERED: ZOFRAN IV PRN (02:54)
[2016-12-13] MEDS ORDERED: NITROSTAT SL PRN (02:55)
[2016-12-13] MEDS ORDERED: MORPHINE IV PRN (03:09)
[2016-12-13] MEDS: NITRO-BID 2% TP SCH ×3 (04:08→10:00)
--- NOTE | 2016-12-13 04:17 | History and Physical Report ---
CHIEF COMPLAINT: Chest pain. HISTORY OF PRESENT ILLNESS: The patient is a 51-year-old female, who said she started having pressure-like chest pain going on for about 24 hours prior to presentation. Pain was associated with shortness of breath. The patient stated the pain felt like somebody sitting on her chest and also described the pain as intermittent occasional tightness. There was also history of wheezing. The patient also stated the pain was associated with nausea and vomiting. EMS was called. The patient was given albuterol, Solu-Medrol, and magnesium. The patient states she felt a little better. There still has been intermittent chest pain after the treatment. There was some history of dizziness, but no history of diaphoresis. The patient said she had a stress test done about 1 year ago and said that she believes that the stress test was abnormal, but could not give more information on the test. PAST MEDICAL HISTORY: Pertinent for hypertension, diabetes mellitus, gastroesophageal reflux disease, arthritis, anxiety disorder, asthma. Also the patient has past history of heart murmur, osteoporosis, hearing loss in the left ear, hiatal hernia. PAST SURGICAL HISTORY: Pertinent for cataract surgery, nasal surgery, tubal ligation, and bilateral foot surgery. FAMILY HISTORY: Noncontributory. SOCIAL HISTORY: The patient does not smoke, does not drink alcohol, and does not use illicit drugs. MEDICATIONS: The patient is on aspirin 81 mg daily, Neurontin 300 mg every 8 hours, lisinopril 20 mg by mouth daily, Claritin 10 mg by mouth daily, Singulair 10 mg by mouth at night, albuterol inhaler, ProAir 2 puffs inhalation 4 times a day, mometasone furoate 220 mcg inhalation daily. Also, the patient is on Advair Diskus 500/50 mcg 2 inhalations daily. The patient is on albuterol sulfate 2 puffs via inhalation every 4 hours, diazepam 2 mg by mouth 3 times daily. The patient is on Mobic/meloxicam 7.5 mg p.o. b.i.d., albuterol nebulizer 2.5 mg via inhalation t.i.d. The patient is on Zithromax Z-MERARY 250 mg daily, Symbicort 160/4.5 one puff twice daily. The patient is on DuoNeb 1 ampule inhalation every 4 hours and on 6-day pack prednisone. ALLERGIES: THE PATIENT IS ALLERGIC TO AMOXICILLIN, PENICILLIN, AND SEAFOOD. REVIEW OF SYSTEMS: CONSTITUTIONAL: There is no fever, no chills, no diaphoresis. HEENT: There is no headache or sore throat. CARDIOVASCULAR SYSTEM: Chest pain present. No orthopnea. RESPIRATORY: Shortness of breath present. Wheezing present. No cough. GASTROINTESTINAL SYSTEM: Nausea, vomiting noted. No abdominal pain, diarrhea, or constipation. NEUROLOGICAL SYSTEM: Dizziness noted. No altered mental status. MUSCULOSKELETAL SYSTEM: There is no joint pain or swelling. DERMATOLOGICAL SYSTEM: There is no skin rash or itching. GENITOURINARY SYSTEM: There is no dysuria, hematuria, or flank pain. Rest of system review is normal. PHYSICAL EXAMINATION: GENERAL: At the time of exam, the patient was found to be alert, oriented x 3, and not in acute distress. VITAL SIGNS: Shows normal temperature, pulse of 76, respirations 15, blood pressure 110/65, O2 sat of 98% on room air. HEENT: Showed pupils to be equal, round, reactive to light and accommodation. Extraocular muscles are intact. NECK: Supple with no JVD or carotid bruit. CARDIOVASCULAR SYSTEM: Show first and second heart sounds with no gallops or murmur. RESPIRATORY SYSTEM: Show good air entry on both sides of the lung with no abnormal breath sounds. GASTROINTESTINAL SYSTEM: Show abdomen to be full, soft, nontender with no organomegaly or rigidity. NEUROLOGIC: Showed no focal deficit. MUSCULOSKELETAL SYSTEM: Show no joint swelling or tenderness. DERMATOLOGICAL SYSTEM: Show no skin rash. GENITOURINARY SYSTEM: Showing no costovertebral angle tenderness. PERTINENT LABORATORY DATA AND IMAGING STUDIES: The patient had lab tests done with cardiac enzymes being unremarkable except for slight increase in total CPK of 208. Chemistry shows normal sodium, potassium, and elevated chloride of 107.3 with normal renal function test. The patient's CBC was unremarkable and CBC differential showed elevated neutrophil count of 81.8% with no significant bands. IMAGING STUDIES: The patient had a chest x-ray done that shows no acute cardiopulmonary lesion. DIAGNOSIS: Chest pain. PLAN: The patient will be admitted to medical floor on telemetry. We will have cardiac enzymes involving troponin, total CK, and CK-MB checked q.6 hours x 2 more level. The patient will be n.p.o. for a Lexiscan stress test in the morning. The patient will be on nitro paste 1 inch to anterior chest wall q.6 hours and will also be on sublingual nitroglycerin 0.4 mg every 5 minutes as needed for breakthrough chest pain x 3 doses. The patient will be on aspirin 325 mg by mouth daily and will be on oxygen by nasal cannula at 2 liters per minute. The patient will be on morphine 2 mg every 5 minutes as needed for chest pain and will be on Tylenol 650 mg every 4 hours for fever and headache, and Zofran 4 mg IV every 8 hours for nausea and vomiting. The patient will still be on heparin 5000 units subq q.12 hours for DVT prophylaxis. For further treatment, patient's presentation will be dependent on the result of the stress test. JOB# [id number] OCN/NTS
[2016-12-13 07:11] LABS: Creatine Kinase MB 1.7 ng/mL (0.0-4.0)
[2016-12-13 07:17] LABS: Creatine Kinase 176 units/L (30-135)
[2016-12-13] MEDS ORDERED: LEXISCAN IV ONE ×2 (09:37→09:38)
[2016-12-13] MEDS ORDERED: HEPARIN SUB-Q SCH (10:00)
[2016-12-13] MEDS ORDERED: ASPIRIN PO SCH (10:00)
[2016-12-13] MEDS ORDERED: PNEUMOVAX 23 IM ONE (12:00)
[2016-12-13] MEDS ORDERED: Fluarix Quad 2017-2018(36 MOS+) IM ONE (12:00)
--- NOTE | 2016-12-13 12:22 | Progress Note ---
Assessment and Plan Assessment and plan: Patient is a 51-year-old woman with a history of hypertension, type 2 diabetes mellitus, GERD, hearing loss, arthritis, anxiety disorder and asthma who presents with chest pains and chest shortness of breath. Chest x-ray report is negative as well as troponin. -Chest pain, atypical most likely GERD with muscle skeletal component: Get a stress test to rule out ischemia -Diabetes mellitus2: Sliding scale, ADA diet after stress test -Hypertension: Continue antihypertensives Full code Disposition: The inpatient care, if stress test negative she can be discharged home History Interval history: Patient was seen and examined. Follow-up on current diagnosis/chest pain shortness of breath which is improved. Admitted Overnight. Patient denies any nausea/vomiting or severe headaches. Imaging, nursing note, chart, labs and old chart reviewed. Discussed with patient. Hospitalist Physical - Physical exam Narrative exam: GEN: WDWN, NAD, AWAKE, ALERT, ORIENTATED 3 HEENT: NCAT, EOMI, PERRL, OP Clear NECK: supple, no adenopathy, no thyromegaly, no JVD CVS/HEART: RRR, NORMAL S1S2, NO JVD, pulses present bilaterally CHEST/LUNGS: CTA B, Symmetrical chest expansion, good air entry bilaterally, reproducible chest wall tenderness GI/Abdomen: soft, NTND, good bowel sounds, no guarding or rebound /Bladder: no suprapubic tenderness, no CVA or paraspinal tenderness EXT/Skin: no c/c/e, no significant edema or obvious rash MSK: FROM x 4 Neuro: CN 2-12 grossly intact except hearing, no new focal deficits Psych: calm - Constitutional Vitals: Temp Pulse Resp BP Pulse Ox 98.3 F 80 18 110/64 97 12/13/16 08:50 12/13/16 10:15 12/13/16 08:50 12/13/16 10:15 12/13/16 08:50 Results - Labs CBC & Chem 7: 12/12/16 22:59 12/12/16 22:59 Labs: Laboratory Last Values WBC 6.8 K/mm3 (4.5-11.0) 12/12/16 22:59 RBC 4.08 M/mm3 (3.65-5.03) 12/12/16 22:59 Hgb 11.5 gm/dl (10.1-14.3) 12/12/16 22:59 Hct 35.6 % (30.3-42.9) 12/12/16 22:59 MCV 87 fl (79-97) 12/12/16 22:59 MCH 28 pg (28-32) 12/12/16 22:59 MCHC 32 % (30-34) 12/12/16 22:59 RDW 13.8 % (13.2-15.2) 12/12/16 22:59 Plt Count 233 K/mm3 (140-440) 12/12/16 22:59 Lymph % (Auto) 13.8 % (13.4-35.0) 12/12/16 22:59 [place] % (Auto) 2.3 % (0.0-7.3) 12/12/16 22:59 Eos % (Auto) 1.6 % (0.0-4.3) 12/12/16 22:59 Baso % (Auto) 0.5 % (0.0-1.8) 12/12/16 22:59 Lymph # 0.9 K/mm3 (1.2-5.4) L 12/12/16 22:59 [place] # 0.2 K/mm3 (0.0-0.8) 12/12/16 22:59 Eos # 0.1 K/mm3 (0.0-0.4) 12/12/16 22:59 Baso # 0.0 K/mm3 (0.0-0.1) 12/12/16 22:59 Seg Neutrophils % 81.8 % (40.0-70.0) H 12/12/16 22:59 Seg Neutrophils # 5.6 K/mm3 (1.8-7.7) 12/12/16 22:59 Sodium 144 mmol/L (137-145) 12/12/16 22:59 Potassium 4.5 mmol/L (3.6-5.0) 12/12/16 22:59 Chloride 107.3 mmol/L (98-107) H 12/12/16 22:59 Carbon Dioxide 27 mmol/L (22-30) 12/12/16 22:59 Anion Gap 14 mmol/L 12/12/16 22:59 BUN 7 mg/dL (7-17) 12/12/16 22:59 Creatinine 0.7 mg/dL (0.7-1.2) 12/12/16 22:59 Estimated GFR > 60 ml/min 12/12/16 22:59 BUN/Creatinine Ratio 10.00 % 12/12/16 22:59 Glucose 111 mg/dL (65-100) H 12/12/16 22:59 Calcium 8.9 mg/dL (8.4-10.2) 12/12/16 22:59 Total Creatine Kinase 176 units/L (30-135) H 12/13/16 05:42 CK-MB (CK-2) 1.7 ng/mL (0.0-4.0) 12/13/16 05:42 CK-MB (CK-2) Rel Index 0.9 (0-4) 12/13/16 05:42 Troponin T < 0.010 ng/mL (0.00-0.029) 12/13/16 05:42
--- NOTE | 2016-12-13 12:27 | Discharge Summary ---
Providers - Providers Date of Admission: 12/13/16 02:45 Date of discharge: 12/13/16 Attending physician: RODNEY GONSALEZ Primary care physician: GIANFRANCO RON Hospitalization Condition: Stable Hospital course: Patient is a 51-year-old woman with a history of hypertension, type 2 diabetes mellitus, GERD, hearing loss, arthritis, anxiety disorder and asthma who presents with chest pains and chest shortness of breath. Chest x-ray report is negative as well as troponin. -Chest pain, atypical most likely GERD with muscle skeletal component: Get a stress test to rule out ischemia -Diabetes mellitus2: Sliding scale, ADA diet after stress test -Hypertension: Continue antihypertensives Full code Disposition: The inpatient care, if stress test negative she can be discharged home Disposition: [place]- TO HOME OR SELFCARE Time spent for discharge: 33 minutes Core Measure Documentation - Palliative Care Palliative Care/ Comfort Measures: Not Applicable - Core Measures Any of the following diagnoses?: none - VTE Discharge Requirements Deep Vein Thrombosis/Pulmonary Embolism Present on Admission: No Has pt received <5 days of overlap therapy or INR<2.0: No Anticoagulant overlap therapy prescribed at discharge: No Contraindication No Overlap Therapy order at DC: Not Indicated Exam - Physical Exam Narrative exam: GEN: WDWN, NAD, AWAKE, ALERT, ORIENTATED 3 HEENT: NCAT, EOMI, PERRL, OP Clear NECK: supple, no adenopathy, no thyromegaly, no JVD CVS/HEART: RRR, NORMAL S1S2, NO JVD, pulses present bilaterally CHEST/LUNGS: CTA B, Symmetrical chest expansion, good air entry bilaterally, reproducible chest wall tenderness GI/Abdomen: soft, NTND, good bowel sounds, no guarding or rebound /Bladder: no suprapubic tenderness, no CVA or paraspinal tenderness EXT/Skin: no c/c/e, no significant edema or obvious rash MSK: FROM x 4 Neuro: CN 2-12 grossly intact except hearing, no new focal deficits Psych: calm - Constitutional Vitals: Temp Pulse Resp BP Pulse Ox 98.3 F 80 18 110/64 97 12/13/16 08:50 12/13/16 10:15 12/13/16 08:50 12/13/16 10:15 12/13/16 08:50 Plan Activity: other (no strenous activity until cleared by pcp) Diet: low salt, diabetic Special Instructions: record daily BP diary, record blood sugar diary Follow up with: PRIMARY CARE, [Referring] - 3-5 Days Prescriptions: Esomeprazole Magnesium [Nexium 24Hr] 22.3 mg PO DAILY #7 capsule.
[2016-12-13 12:48] LABS: Creatine Kinase MB 1.6 ng/mL (0.0-4.0)
[2016-12-13 12:50] LABS: Creatine Kinase 147 units/L (30-135)
[2016-12-13 13:26] VITALS: BP 128/70
--- NOTE | 2016-12-14 00:27 | Treadmill Report ---
INDICATION FOR PROCEDURE: Chest pain. Informed consent was obtained. DESCRIPTION OF PROCEDURE: Resting nuclear cardiac imaging was performed 45-60 minutes following the intravenous administration of 15 mCi of technetium-99m Myoview. Vasodilator stress was achieved with 0.4 mg of Lexiscan per protocol. Subsequently, stress myocardial perfusion imaging was performed 30-45 minutes following the intravenous administration of 28 mCi of technetium-99m Myoview. Images were acquired in a 180-degree arc from 45 degrees MAHER to 45 degrees LPO. After data after data acquisition and reconstruction, the images were processed and reoriented into the vertical long, horizontal long, and horizontal short axis slices. A polar color map of the horizontal short axis slices was generated and reviewed. The rotating planar images reviewed in cinematic format on the computer console. Gated SPECT imaging demonstrates a post-stress left ventricular ejection fraction of 60% with normal wall motion. Myocardial perfusion imaging demonstrates no significant cavity change between stress and rest. No significant stress-induced perfusion defects are seen. Nuclear cardiac imaging demonstrates grossly normal post-stress left ventricular systolic function with no significant evidence for myocardial ischemia or necrosis. JOB# [id number] HUSSEIN/LUCIA
--- NOTE | 2016-12-14 03:36 | Treadmill Report ---
NUCLEAR CARDIAC IMAGING INDICATION FOR PROCEDURE: Chest pain. This study began as a treadmill protocol, but the patient was unable to navigate the treadmill due to leg fatigue and vasodilator stress with intravenous Lexiscan 0.4 mg per protocol was initiated. The baseline electrocardiogram demonstrates normal sinus rhythm at a heart rate of 62 beats per minute. Following the intravenous administration of Lexiscan, at 1 minute, there was T-wave inversion in the precordial leads V2 through V5, which promptly normalized throughout the rest of the protocol and actually became normal within 10 seconds of their initial appearance. No other electrocardiographic abnormalities were noted. There was no significant ectopy. JOB# [id number] HUSSEIN/NTS
== END 2016-12-13 14:15 | disposition home or self-care (01) | DRG 392 ==
LOC: ED 21:05 → 4A 12-13 02:45
PROVIDERS: ADMIT Internal Medicine; ATTEND Internal Medicine
PROC: 3E033HZ Introduction of Radioactive Substance into Peripheral Vein, Percutaneous Approach (ICD-10-PCS; principal; 2016-12-13)
PROC: 4A02XM4 Measurement of Cardiac Total Activity, External Approach (ICD-10-PCS; principal; 2016-12-13)
DX: K21.9 Gastro-esophageal reflux disease without esophagitis (principal); J45.901 Unspecified asthma with (acute) exacerbation; I10 Essential (primary) hypertension; Z88.8 Allergy status to other drugs, medicaments and biological substances; Z88.0 Allergy status to penicillin; Z91.013 Allergy to seafood; Z98.51 Tubal ligation status; Z98.49 Cataract extraction status, unspecified eye; M81.0 Age-related osteoporosis without current pathological fracture; Z79.82 Long term (current) use of aspirin; H91.90 Unspecified hearing loss, unspecified ear; E11.9 Type 2 diabetes mellitus without complications
CPT/HCPCS: 36415; 71020; 78452; 80048; 82550; 82553; 82962; 84484; 85025; 90686; 90732; 93005; 93010; 93017; A9502; J2785

== ENCOUNTER 2016-12-19 01:05 | Emergency (ER) | payer MEDICARE ==
[2016-12-19 02:16] LABS: Basophils % (Auto) 1.3 % (0.0-1.8); Eosinophils % (Auto) 6.5 % (0.0-4.3); Hematocrit 32.4 % (30.3-42.9); Hemoglobin 11.1 gm/dl (10.1-14.3); Mean Corpuscular HGB Conc 34 % (30-34); Mean Corpuscular Hemoglobin 29 pg (28-32); Mean Corpuscular Volume 85 fl (79-97); Platelet Count 194 K/mm3 (140-440); Red Blood Count 3.81 M/mm3 (3.65-5.03); Red Cell Distribution Width 13.9 % (13.2-15.2); White Blood Count 4.3 K/mm3 (4.5-11.0)
[2016-12-19 02:25] LABS: Anion Gap 18 mmol/L; Blood Urea Nitrogen 14 mg/dL (7-17); Calcium 8.6 mg/dL (8.4-10.2); Carbon Dioxide 23 mmol/L (22-30); Chloride 105.5 mmol/L (98-107); Glucose 99 mg/dL (65-100); Potassium 3.5 mmol/L (3.6-5.0); Sodium 143 mmol/L (137-145)
[2016-12-19] MEDS ORDERED: PROVENTIL IH ONE (03:35)
[2016-12-19] MEDS ORDERED: DELTASONE PO ONE (03:35)
[2016-12-19] MEDS ORDERED: ATIVAN PO ONE (03:35)
[2016-12-19 03:49] LABS: Bilirubin,Urine NEG (Negative); Blood,Urine SM (Negative); Ketones,Urine NEG (Negative); Leukocyte Esterase,Urine SM (Negative); Mucus,Urine FEW /HPF; Nitrite,Urine NEG (Negative); Protein,Urine <15 mg/dL mg/dL (Negative); Urobilinogen,Urine < 2.0 mg/dL (<2.0)
[2016-12-19 05:01] VITALS: BP 106/65
--- NOTE | 2016-12-19 05:07 | Emergency Department Report ---
ED General Adult HPI - General Chief complaint: Dyspnea/Respdistress Stated complaint: SHRUTHI/ANXIETY Time Seen by Provider: 12/19/16 03:32 Source: patient, EMS Mode of arrival: Stretcher Limitations: No Limitations - History of Present Illness Initial comments: Patient is a 51-year-old female who presents with shortness of breath after she tried a respiratory toward treatments at home and hasn't gotten any better. Patient states she has some left-sided chest pain no sob 4 out 10 and wasn't burning type of pain it was intermittent and not made better or worse. Patient was brought in by EMS. She has been intubated at least 8 times in the past for her asthma. Patient was on 2 L nasal cannula with an oxygen sat of 99% on room air her O2 sat was 96%. Patient also states that she has a history of anxiety. She takes nothing for it. Patient denies any nausea or vomiting. She was recently admitted to [facility] had a stress test and discharged on Monday. Severity scale (0 -10): 0 - Related Data Home Medications Medication Instructions Recorded Confirmed Last Taken Gabapentin [Neurontin] 300 mg PO Q8HR 03/02/15 12/19/16 11/18/16 Previous Rx's Medication Instructions Recorded Last Taken Type Aspirin [Aspirin BABY CHEW TAB] 81 mg PO QDAY #30 tab.chew 06/15/13 11/18/16 Rx Lisinopril [Zestril TAB] 20 mg PO QDAY tablet 06/16/15 12/17/16 Rx Loratadine [Claritin] 10 mg PO QDAY tablet 06/16/15 11/18/16 Rx Montelukast [Singulair] 10 mg PO QHS tablet 06/16/15 11/18/16 Rx Diazepam Tab [Valium] 2 mg PO TID PRN #10 tablet 11/18/16 Unknown Rx Meloxicam [Mobic] 7.5 mg PO BID #24 tablet 11/18/16 Unknown Rx Budesoni/Formotero 160-4.5(Nf) 1 puff IH BID #1 inha 11/30/16 12/19/16 Rx [Symbicort 160-4.5 (Nf)] Ipratropium/Albuterol Sulfate 1 ampul IH Q4HR #1 box 11/30/16 12/19/16 Rx [DUONEB *Not for PRN Use*] Esomeprazole Magnesium [Nexium 22.3 mg PO DAILY #7 capsule. 12/13/16 Unknown Rx 24Hr] ALBUTEROL Inhaler [ProAir HFA 2 puff IH QID PRN #1 inhalation 12/19/16 Unknown Rx Inhaler] ALBUTEROL NEB's [Proventil 0.083% 2.5 mg IH TID PRN #60 neb 12/19/16 Unknown Rx NEBS] hydrOXYzine HCL [Atarax] 25 mg PO Q6HR PRN #30 tablet 12/19/16 Unknown Rx predniSONE [Deltasone] 20 mg PO BID #10 tablet 12/19/16 Unknown Rx Allergies Allergy/AdvReac Type Severity Reaction Status Date / Time amoxicillin Allergy Unknown Verified 12/19/16 03:25 Penicillins Allergy Rash Verified 12/19/16 03:25 seafood Allergy Severe Anaphylaxis Uncoded 12/19/16 03:25 ED Review of Systems ROS: Stated complaint: SHRUTHI/ANXIETY Other details as noted in HPI ED Past Medical Hx - Past Medical History Previous Medical History?: Yes Hx Hypertension: Yes Hx Heart Attack/AMI: No Hx Congestive Heart Failure: No Hx Diabetes: Yes Hx Pulmonary Embolism: No Hx GERD: Yes Hx Liver Disease: No Hx Renal Disease: No Hx Sickle Cell Disease: No Hx Arthritis: Yes Hx Headaches / Migraines: No Hx Seizures: No Hx Kidney Stones: No Hx Psychiatric Treatment: Yes (Anxiety) Hx Asthma: Yes Hx Tuberculosis: No Hx HIV: No Additional medical history: Intubated x 8. heart murmur. osteoporosis. hearing loss in [place] - Surgical History Hx Coronary Stent: No Hx Open Heart Surgery: No Hx Pacemaker: No Hx Internal Defibrillator: No Hx Cholecystectomy: No Hx Appendectomy: No Hx Breast Surgery: No Additional Surgical History: cataracts, nasal surg, tubal ligation. bilateral foot - Social History Smoking Status: Never Smoker - Medications Home Medications: Home Medications Medication Instructions Recorded Confirmed Last Taken Type Aspirin [Aspirin BABY CHEW TAB] 81 mg PO QDAY #30 tab.chew 06/15/13 12/19/1608/01 Rx Gabapentin [Neurontin] 300 mg PO Q8HR 03/02/15 12/19/16 11/18/16 History Lisinopril [Zestril TAB] 20 mg PO QDAY tablet 06/16/15 12/19/16 12/17/16 Rx Loratadine [Claritin] 10 mg PO QDAY tablet 06/16/15 12/19/16 11/18/16 Rx Montelukast [Singulair] 10 mg PO QHS tablet 06/16/15 12/19/16 11/18/16 Rx Diazepam Tab [Valium] 2 mg PO TID PRN #10 tablet 11/18/16 12/19/16 Unknown Rx Meloxicam [Mobic] 7.5 mg PO BID #24 tablet 11/18/16 12/19/16 Unknown Rx Budesoni/Formotero 160-4.5(Nf) 1 puff IH BID #1 inha 11/30/16 12/19/16 12/19/16 Rx [Symbicort 160-4.5 (Nf)] Ipratropium/Albuterol Sulfate 1 ampul IH Q4HR #1 box 11/30/16 12/19/16 12/19/16 Rx [DUONEB *Not for PRN Use*] Esomeprazole Magnesium [Nexium 22.3 mg PO DAILY #7 capsule. 12/13/16 12/19/16 Unknown Rx 24Hr] ALBUTEROL Inhaler [ProAir HFA 2 puff IH QID PRN #1 inhalation 12/19/16 Unknown Rx Inhaler] ALBUTEROL NEB's [Proventil 0.083% 2.5 mg IH TID PRN #60 neb 12/19/16 Unknown Rx NEBS] hydrOXYzine HCL [Atarax] 25 mg PO Q6HR PRN #30 tablet 12/19/16 Unknown Rx predniSONE [Deltasone] 20 mg PO BID #10 tablet 12/19/16 Unknown Rx ED Physical Exam - General Limitations: No Limitations General appearance: alert, in no apparent distress - Head Head exam: Present: atraumatic, normocephalic - Eye Eye exam: Present: normal appearance - ENT ENT exam: Present: mucous membranes moist - Neck Neck exam: Present: normal inspection - Respiratory Respiratory exam: Present: normal lung sounds bilaterally. Absent: respiratory distress - Cardiovascular Cardiovascular Exam: Present: regular rate, normal rhythm. Absent: systolic murmur, diastolic murmur, rubs, gallop - GI/Abdominal GI/Abdominal exam: Present: soft, normal bowel sounds - Extremities Exam Extremities exam: Present: normal inspection - Back Exam Back exam: Present: normal inspection - Neurological Exam Neurological exam: Present: alert, oriented X3 - Psychiatric Psychiatric exam: Present: normal affect, normal mood - Skin Skin exam: Present: warm, dry, intact, normal color. Absent: rash ED Course Vital Signs 12/19/16 12/19/16 12/19/16 01:28 03:28 03:46 Temperature 98.0 F Pulse Rate 77 80 Pulse Rate [ 74 Anterior Bilateral] Respiratory 20 20 Rate Respiratory 18 Rate [Anterior Bilateral] Blood Pressure 116/75 Blood Pressure 112/71 [Right] O2 Sat by Pulse 98 98 Oximetry 12/19/16 12/19/16 04:04 05:00 Temperature Pulse Rate 77 Pulse Rate [ 91 H Anterior Bilateral] Respiratory 20 Rate Respiratory 18 Rate [Anterior Bilateral] Blood Pressure Blood Pressure 106/65 [Right] O2 Sat by Pulse 97 Oximetry - Reevaluation(s) Reevaluation #1: 12/19/16 05:07 Patient got breathing treatments and steroids in the ER wean patient off of O2 nasal cannula. She is satting 99% on room air also I will send the patient home. Prednisone and albuterol inhaler. ED Medical Decision Making - Lab Data Result diagrams: 12/19/16 01:43 12/19/16 01:43 Lab Results 12/19/16 12/19/16 12/19/16 Range/Units 01:43 01:43 03:28 WBC 4.3 L (4.5-11.0) K/mm3 RBC 3.81 (3.65-5.03) M/mm3 Hgb 11.1 (10.1-14.3) gm/dl Hct 32.4 (30.3-42.9) % MCV 85 (79-97) fl MCH 29 (28-32) pg MCHC 34 (30-34) % RDW 13.9 (13.2-15.2) % Plt Count 194 (140-440) K/mm3 Lymph % (Auto) 34.8 (13.4-35.0) % [place] % (Auto) 8.3 H (0.0-7.3) % Eos % (Auto) 6.5 H (0.0-4.3) % Baso % (Auto) 1.3 (0.0-1.8) % Lymph # 1.5 (1.2-5.4) K/mm3 [place] # 0.4 (0.0-0.8) K/mm3 Eos # 0.3 (0.0-0.4) K/mm3 Baso # 0.1 (0.0-0.1) K/mm3 Seg Neutrophils % 49.1 (40.0-70.0) % Seg Neutrophils # 2.1 (1.8-7.7) K/mm3 Sodium 143 (137-145) mmol/L Potassium 3.5 L (3.6-5.0) mmol/L Chloride 105.5 (98-107) mmol/L Carbon Dioxide 23 (22-30) mmol/L Anion Gap 18 mmol/L BUN 14 (7-17) mg/dL Creatinine 0.8 (0.7-1.2) mg/dL Estimated GFR > 60 ml/min BUN/Creatinine Ratio 17.50 % Glucose 99 (65-100) mg/dL Calcium 8.6 (8.4-10.2) mg/dL Troponin T < 0.010 (0.00-0.029) ng/mL Urine Color Yellow (Yellow) Urine Turbidity Clear (Clear) Urine pH 6.0 (5.0-7.0) Ur Specific [place] 1.013 (1.003-1.030) Urine Protein <15 mg/dl (Negative) mg/dL Urine Glucose (UA) Neg (Negative) mg/dL Urine Ketones Neg (Negative) mg/dL Urine Blood Sm (Negative) Urine Nitrite Neg (Negative) Urine Bilirubin Neg (Negative) Urine Urobilinogen < 2.0 (<2.0) mg/dL Ur Leukocyte Esterase Sm (Negative) Urine WBC (Auto) 1.0 (0.0-6.0) /HPF Urine RBC (Auto) 3.0 (0.0-6.0) /HPF U Epithel Cells (Auto) 1.0 (0-13.0) /HPF Urine Mucus Few /HPF 12/19/16 Range/Units 04:24 WBC (4.5-11.0) K/mm3 RBC (3.65-5.03) M/mm3 Hgb (10.1-14.3) gm/dl Hct (30.3-42.9) % MCV (79-97) fl MCH (28-32) pg MCHC (30-34) % RDW (13.2-15.2) % Plt Count (140-440) K/mm3 Lymph % (Auto) (13.4-35.0) % [place] % (Auto) (0.0-7.3) % Eos % (Auto) (0.0-4.3) % Baso % (Auto) (0.0-1.8) % Lymph # (1.2-5.4) K/mm3 [place] # (0.0-0.8) K/mm3 Eos # (0.0-0.4) K/mm3 Baso # (0.0-0.1) K/mm3 Seg Neutrophils % (40.0-70.0) % Seg Neutrophils # (1.8-7.7) K/mm3 Sodium (137-145) mmol/L Potassium (3.6-5.0) mmol/L Chloride (98-107) mmol/L Carbon Dioxide (22-30) mmol/L Anion Gap mmol/L BUN (7-17) mg/dL Creatinine (0.7-1.2) mg/dL Estimated GFR ml/min BUN/Creatinine Ratio % Glucose (65-100) mg/dL Calcium (8.4-10.2) mg/dL Troponin T < 0.010 (0.00-0.029) ng/mL Urine Color (Yellow) Urine Turbidity (Clear) Urine pH (5.0-7.0) Ur Specific [place] (1.003-1.030) Urine Protein (Negative) mg/dL Urine Glucose (UA) (Negative) mg/dL Urine Ketones (Negative) mg/dL Urine Blood (Negative) Urine Nitrite (Negative) Urine Bilirubin (Negative) Urine Urobilinogen (<2.0) mg/dL Ur Leukocyte Esterase (Negative) Urine WBC (Auto) (0.0-6.0) /HPF Urine RBC (Auto) (0.0-6.0) /HPF U Epithel Cells (Auto) (0-13.0) /HPF Urine Mucus /HPF - Radiology Data Radiology results: image reviewed Checks it x-ray: Shows no acute cardiopulmonary disease. - Medical Decision Making Chief medical diagnosis: Asthma exacerbation Differential medical diagnosis: Pneumonia, anxiety CBC, CMP, troponin and chest x-ray Patient is feeling better after prednisone and albuterol treatment has been weaned from O2. Patient has asthma exacerbation and anxiety. Also patient, prednisone and albuterol inhaler also PATIENT Atarax for anxiety. Critical care attestation.: If time is entered above; I have spent that time in minutes in the direct care of this critically ill patient, excluding procedure time. ED Disposition Clinical Impression: Asthma exacerbation, Anxiety Disposition: TO HOME OR SELFCARE Is pt being admited?: No Does the pt Need Aspirin: No Condition: Stable Prescriptions: ALBUTEROL Inhaler [ProAir HFA Inhaler] 2 puff IH QID PRN #1 inhalation PRN Reason: Shortness Of Breath ALBUTEROL NEB's [Proventil 0.083% NEBS] 2.5 mg IH TID PRN #60 neb PRN Reason: Wheezing hydrOXYzine HCL [Atarax] 25 mg PO Q6HR PRN #30 tablet PRN Reason: Anxiety predniSONE [Deltasone] 20 mg PO BID #10 tablet Referrals: PRIMARY CARE, [Primary Care Provider] - 3-5 Days
--- NOTE | 2016-12-19 09:07 | XRay Report ---
ROUTINE CHEST, TWO VIEWS: SOB PA and lateral views demonstrate the heart and mediastinal contour to be of normal size and shape. The lungs are clear and fully expanded and the soft tissues and bony structures are normal. No interval change compared to December 12, 2016. IMPRESSION: Normal study.
== END 2016-12-19 05:28 | disposition home or self-care (01) ==
LOC: ED 01:05
DX: J45.901 Unspecified asthma with (acute) exacerbation (principal); F41.9 Anxiety disorder, unspecified; I10 Essential (primary) hypertension; E11.9 Type 2 diabetes mellitus without complications; K21.9 Gastro-esophageal reflux disease without esophagitis; M19.90 Unspecified osteoarthritis, unspecified site; Z88.0 Allergy status to penicillin; Z88.1 Allergy status to other antibiotic agents; Z91.013 Allergy to seafood; Z79.82 Long term (current) use of aspirin; Z79.01 Long term (current) use of anticoagulants
CPT/HCPCS: 36415; 71020; 80048; 81001; 84484; 85025; 93005; 93010; 94640; 99285; J7512

== ENCOUNTER 2017-01-26 08:29 | Emergency (ER) | payer MEDICARE ==
[2017-01-26 08:46] VITALS: BP 100/74
[2017-01-26] MEDS ORDERED: TESSALON PERLES PO ONE (11:53)
--- NOTE | 2017-01-26 11:58 | Emergency Department Report ---
- General Chief Complaint: Upper Respiratory Infection Stated Complaint: CHEST COLD Time Seen by Provider: 01/26/17 11:16 Source: patient Mode of arrival: Ambulatory Limitations: No Limitations - History of Present Illness Initial Comments: This 51-year-old female nontoxic, well nourished in appearance, no acute signs of distress presents to the ED complaining of productive cough, sore throat, rhinorrhea 2 days. Patient describes cough with mucus production colored and yellow/green. Patient denies any shortness of breath, nausea, vomiting, chest pain, wheezing, stiff neck, headache, abdominal pain, numbness or tingling. Patient states allergies to amoxicillin, penicillin and seafood. Past medical history includes arthritis, asthma, diabetes, GERD, anxiety. MD Complaint: cough, sore throat, rhinorrhea, nasal congestion -: Gradual, days(s) (2) Severity: mild Severity scale (0 -10): 8 Quality: aching Consistency: constant Improves With: nothing Worsens With: nothing Context: sick contacts (grandchildren) Associated Symptoms: rhinorrhea, nasal congestion, sore throat, cough. denies: fever, chills, myalgias, diaphoresis, headache, stiff neck, chest pain, abdominal pain, nausea, vomiting, diarrhea, dysuria, rash, confusion, right sweats, weight loss, epistaxis, hoarseness, ear pain Treatments Prior to Arrival: none - Related Data Home Medications Medication Instructions Recorded Confirmed Last Taken Gabapentin [Neurontin] 300 mg PO Q8HR 03/02/15 12/25/16 11/18/16 Previous Rx's Medication Instructions Recorded Last Taken Type Loratadine [Claritin] 10 mg PO QDAY tablet 06/16/15 11/18/16 Rx Diazepam Tab [Valium] 2 mg PO TID PRN #10 tablet 11/18/16 Unknown Rx Meloxicam [Mobic] 7.5 mg PO BID #24 tablet 11/18/16 Unknown Rx hydrOXYzine HCL [Atarax] 25 mg PO Q6HR PRN #30 tablet 12/19/16 Unknown Rx ALBUTEROL Inhaler [ProAir HFA 2 puff IH QID PRN #1 inhalation 12/28/16 Unknown Rx Inhaler] ALBUTEROL NEB's [Proventil 0.083% 2.5 mg IH TID PRN #60 neb 12/28/16 Unknown Rx NEBS] Aspirin [Aspirin BABY CHEW TAB] 81 mg PO QDAY #30 tab.chew 12/28/16 Unknown Rx Budesoni/Formotero 160-4.5(Nf) 1 puff IH BID #1 inha 12/28/16 Unknown Rx [Symbicort 160-4.5 (Nf)] Esomeprazole Magnesium [NexIUM 22.3 mg PO DAILY #7 capsule. 12/28/16 Unknown Rx 24Hr] Furosemide [Lasix TAB] 20 mg PO DAILY@0600 #30 tablet 12/28/16 Unknown Rx Ipratropium/Albuterol Sulfate 1 ampul IH Q4HR #1 box 12/28/16 Unknown Rx [DUONEB *Not for PRN Use*] Montelukast [Singulair] 10 mg PO QHS #30 tablet 12/28/16 Unknown Rx predniSONE [Deltasone] 40 mg PO QDAY #20 tablet 12/28/16 Unknown Rx Azithromycin [Zithromax Z-MERARY] 250 mg PO DAILY #6 tablet 01/26/17 Unknown Rx Benzonatate [Tessalon Perle] 100 mg PO DAILY #15 capsule 01/26/17 Unknown Rx Allergies Allergy/AdvReac Type Severity Reaction Status Date / Time amoxicillin Allergy Unknown Verified 12/19/16 03:25 Penicillins Allergy Rash Verified 12/19/16 03:25 seafood Allergy Severe Anaphylaxis Uncoded 12/19/16 03:25 ED Review of Systems ROS: Stated complaint: CHEST COLD Other details as noted in HPI Constitutional: denies: chills, fever Eyes: denies: eye pain, eye discharge, vision change ENT: throat pain. denies: ear pain Respiratory: cough. denies: shortness of breath, wheezing Cardiovascular: denies: chest pain, palpitations Endocrine: no symptoms reported Gastrointestinal: denies: abdominal pain, nausea, diarrhea Genitourinary: denies: urgency, dysuria, discharge Musculoskeletal: denies: back pain, joint swelling, arthralgia Skin: denies: rash, lesions Neurological: denies: headache, weakness, paresthesias Psychiatric: denies: anxiety, depression Hematological/Lymphatic: denies: easy bleeding, easy bruising ED Past Medical Hx - Past Medical History Previous Medical History?: Yes Hx Hypertension: Yes Hx Heart Attack/AMI: No Hx Congestive Heart Failure: No Hx Diabetes: Yes Hx Pulmonary Embolism: No Hx GERD: Yes Hx Liver Disease: No Hx Renal Disease: No Hx Sickle Cell Disease: No Hx Arthritis: Yes Hx Headaches / Migraines: No Hx Seizures: No Hx Kidney Stones: No Hx Psychiatric Treatment: Yes (Anxiety) Hx Asthma: Yes Hx Tuberculosis: No Hx HIV: No Additional medical history: Intubated x 8. heart murmur. osteoporosis. hearing loss in [place] - Surgical History Past Surgical History?: Yes Hx Coronary Stent: No Hx Open Heart Surgery: No Hx Pacemaker: No Hx Internal Defibrillator: No Hx Cholecystectomy: No Hx Appendectomy: No Hx Breast Surgery: No Additional Surgical History: cataracts, nasal surg, tubal ligation. bilateral foot - Social History Smoking Status: Never Smoker Substance Use Type: None - Medications Home Medications: Home Medications Medication Instructions Recorded Confirmed Last Taken Type Gabapentin [Neurontin] 300 mg PO Q8HR 03/02/15 12/25/16 11/18/16 History Loratadine [Claritin] 10 mg PO QDAY tablet 06/16/15 12/25/16 11/18/16 Rx Diazepam Tab [Valium] 2 mg PO TID PRN #10 tablet 11/18/16 12/25/16 Unknown Rx Meloxicam [Mobic] 7.5 mg PO BID #24 tablet 11/18/16 12/25/16 Unknown Rx hydrOXYzine HCL [Atarax] 25 mg PO Q6HR PRN #30 tablet 12/19/16 12/25/16 Unknown Rx ALBUTEROL Inhaler [ProAir HFA 2 puff IH QID PRN #1 inhalation 12/28/16 Unknown Rx Inhaler] ALBUTEROL NEB's [Proventil 0.083% 2.5 mg IH TID PRN #60 neb 12/28/16 Unknown Rx NEBS] Aspirin [Aspirin BABY CHEW TAB] 81 mg PO QDAY #30 tab.chew 12/28/16 Unknown Rx Budesoni/Formotero 160-4.5(Nf) 1 puff IH BID #1 inha 12/28/16 Unknown Rx [Symbicort 160-4.5 (Nf)] Esomeprazole Magnesium [NexIUM 22.3 mg PO DAILY #7 capsule.dr 12/28/16 Unknown Rx 24Hr] Furosemide [Lasix TAB] 20 mg PO DAILY@0600 #30 tablet 12/28/16 Unknown Rx Ipratropium/Albuterol Sulfate 1 ampul IH Q4HR #1 box 12/28/16 Unknown Rx [DUONEB *Not for PRN Use*] Montelukast [Singulair] 10 mg PO QHS #30 tablet 12/28/16 Unknown Rx predniSONE [Deltasone] 40 mg PO QDAY #20 tablet 12/28/16 Unknown Rx Azithromycin [Zithromax Z-MERARY] 250 mg PO DAILY #6 tablet 01/26/17 Unknown Rx Benzonatate [Tessalon Perle] 100 mg PO DAILY #15 capsule 01/26/17 Unknown Rx ED Physical Exam - General Limitations: No Limitations General appearance: alert, in no apparent distress - Head Head exam: Present: atraumatic, normocephalic, normal inspection - Eye Eye exam: Present: normal appearance, PERRL, EOMI. Absent: scleral icterus, conjunctival injection, nystagmus, periorbital swelling, periorbital tenderness Pupils: Present: normal accommodation - ENT ENT exam: Present: mucous membranes moist, TM's normal bilaterally, normal external ear exam - Expanded ENT Exam Expanded Ear exam: Present: normal external inspection Mouth exam: Present: normal external inspection, tongue normal. Absent: drooling, trismus, muffled voice, tongue elevation, laceration Teeth exam: Present: normal inspection Throat exam: Positive: tonsillar erythema, tonsillomegaly (2+). Negative: tonsillar exudate, R peritonsillar mass, L peritonsillar mass - Neck Neck exam: Present: normal inspection, full ROM. Absent: tenderness, meningismus, lymphadenopathy, thyromegaly - Respiratory Respiratory exam: Present: normal lung sounds bilaterally. Absent: respiratory distress, wheezes, rales, rhonchi, stridor, chest wall tenderness, accessory muscle use, decreased breath sounds, prolonged expiratory - Cardiovascular Cardiovascular Exam: Present: regular rate, normal rhythm, normal heart sounds. Absent: bradycardia, tachycardia, irregular rhythm, systolic murmur, diastolic murmur, rubs, gallop - GI/Abdominal GI/Abdominal exam: Present: soft, normal bowel sounds. Absent: distended, tenderness, guarding, rebound, rigid, diminished bowel sounds - Rectal Rectal exam: Present: deferred - Extremities Exam Extremities exam: Present: normal inspection, full ROM, normal capillary refill. Absent: tenderness, pedal edema, joint swelling, calf tenderness - Back Exam Back exam: Present: normal inspection, full ROM. Absent: tenderness, CVA tenderness (R), CVA tenderness (L), muscle spasm, paraspinal tenderness, vertebral tenderness, rash noted - Neurological Exam Neurological exam: Present: alert, oriented X3, CN II-XII intact, normal gait, reflexes normal - Psychiatric Psychiatric exam: Present: normal affect, normal mood - Skin Skin exam: Present: warm, dry, intact, normal color. Absent: rash ED Course Vital Signs 01/26/17 08:42 Temperature 98.9 F Pulse Rate 89 Respiratory 18 Rate Blood Pressure 100/74 O2 Sat by Pulse 98 Oximetry - Reevaluation(s) Reevaluation #1: 01/26/17 11:59 Patient is speaking in full sentences with no signs of distress noted. ED Medical Decision Making - Medical Decision Making 51-year-old female that presents with upper respiratory infection and tonsillitis. Patient was evaluated by me and patient is stable. Patient's both grandchildren just diagnosed with tonsillitis with exudate. Patient's close contact with them. Patient be treated with azithromycin 5 days. Patient received Tessalon Perle patient stated she feels much better and symptoms of sore throat and cough has subsided. Patient was instructed to follow -up with a primary care doctor in 3-5 days or if symptoms worsen and continue return to emergency room as soon as possible possible. Patient is hemodynamically stable with stable vital signs. Patient states he is feeling better. At time time of discharge, the patient does not seem toxic or ill in appearance. No acute signs of distress noted. Patient agrees to discharge treatment plan of care. No further questions noted by the patient. Critical care attestation.: If time is entered above; I have spent that time in minutes in the direct care of this critically ill patient, excluding procedure time. ED Disposition Clinical Impression: Tonsillitis Upper respiratory infection Qualifiers: URI type: unspecified URI Qualified Code(s): J06.9 - Acute upper respiratory infection, unspecified Disposition: - TO HOME OR SELFCARE Is pt being admited?: No Does the pt Need Aspirin: No Condition: Stable Instructions: Upper Respiratory Infection (ED), Tonsillitis (ED), Azithromycin (By mouth), Benzonatate (By mouth) Additional Instructions: Follow-up with a primary care doctor in 3-5 days or if symptoms worsen and continue return to emergency room as soon as possible possible. Prescriptions: Azithromycin [Zithromax Z-MERARY] 250 mg PO DAILY #6 tablet Benzonatate [Tessalon Perle] 100 mg PO DAILY #15 capsule Referrals: PRIMARY CARE, [Primary Care Provider] - 3-5 Days KERRY LONDON MD [Staff Physician] - 3-5 Days [facility] [Outside] - 3-5 Days [facility] [Outside] - 3-5 Days Forms: Work/School Release Form(ED)
== END 2017-01-26 12:09 | disposition home or self-care (01) ==
LOC: ED 08:29
DX: J06.9 Acute upper respiratory infection, unspecified (principal); J03.90 Acute tonsillitis, unspecified; I10 Essential (primary) hypertension; E11.9 Type 2 diabetes mellitus without complications; K21.9 Gastro-esophageal reflux disease without esophagitis; J45.909 Unspecified asthma, uncomplicated
CPT/HCPCS: 99282

== ENCOUNTER 2017-01-28 08:33 | Emergency (ER) | payer MEDICARE ==
--- NOTE | 2017-01-28 11:29 | Emergency Department Report ---
HPI - General Chief Complaint: Adult Asthma Time Seen by Provider: 01/28/17 11:03 - HPI HPI: Room 19 The pt is a 51 y/o F p/w a cc of pleurisy/cough. The pt states since yesterday she has had a tightness in her back with respirations. Pt denies CP or SOB. Pt does admit to a cough that is nonproductive. Pt denies fever. Pt states her sxs do not feel like her asthma. ED Past Medical Hx - Past Medical History Previous Medical History?: Yes Hx Hypertension: Yes Hx Congestive Heart Failure: Yes Hx Diabetes: Yes Hx GERD: Yes Hx Arthritis: Yes Hx Psychiatric Treatment: Yes (Anxiety) Hx Asthma: Yes (has been intubated before for severe asthma) Additional medical history: Intubated x 8. heart murmur. osteoporosis. hearing loss in [place] - Surgical History Past Surgical History?: Yes Additional Surgical History: cataracts, nasal surg, tubal ligation. bilateral foot - Family History Family history: no significant - Social History Smoking Status: Never Smoker Substance Use Type: Prescribed - Medications Home Medications: Home Medications Medication Instructions Recorded Confirmed Last Taken Type Gabapentin [Neurontin] 300 mg PO Q8HR 03/02/15 12/25/16 11/18/16 History Loratadine [Claritin] 10 mg PO QDAY tablet 06/16/15 12/25/16 11/18/16 Rx Diazepam Tab [Valium] 2 mg PO TID PRN #10 tablet 11/18/16 12/25/16 Unknown Rx Meloxicam [Mobic] 7.5 mg PO BID #24 tablet 11/18/16 12/25/16 Unknown Rx hydrOXYzine HCL [Atarax] 25 mg PO Q6HR PRN #30 tablet 12/19/16 12/25/16 Unknown Rx ALBUTEROL Inhaler [ProAir HFA 2 puff IH QID PRN #1 inhalation 12/28/16 Unknown Rx Inhaler] ALBUTEROL NEB's [Proventil 0.083% 2.5 mg IH TID PRN #60 neb 12/28/16 Unknown Rx NEBS] Aspirin [Aspirin BABY CHEW TAB] 81 mg PO QDAY #30 tab.chew 12/28/16 Unknown Rx Budesoni/Formotero 160-4.5(Nf) 1 puff IH BID #1 inha 12/28/16 Unknown Rx [Symbicort 160-4.5 (Nf)] Esomeprazole Magnesium [NexIUM 22.3 mg PO DAILY #7 capsule. 12/28/16 Unknown Rx 24Hr] Furosemide [Lasix TAB] 20 mg PO DAILY@0600 #30 tablet 12/28/16 Unknown Rx Ipratropium/Albuterol Sulfate 1 ampul IH Q4HR #1 box 12/28/16 Unknown Rx [DUONEB *Not for PRN Use*] Montelukast [Singulair] 10 mg PO QHS #30 tablet 12/28/16 Unknown Rx predniSONE [Deltasone] 40 mg PO QDAY #20 tablet 12/28/16 Unknown Rx Azithromycin [Zithromax Z-MERARY] 250 mg PO DAILY #6 tablet 01/26/17 Unknown Rx Benzonatate [Tessalon Perle] 100 mg PO DAILY #15 capsule 01/26/17 Unknown Rx traMADol [Ultram] 50 mg PO Q6HR PRN #10 tablet 01/28/17 Unknown Rx ED Review of Systems ROS: Stated complaint: ASTHMA/RUNNY NOSE Other details as noted in HPI Comment: All other systems reviewed and negative Constitutional: denies: chills, fever Eyes: denies: eye pain, eye discharge, vision change ENT: denies: ear pain, throat pain Respiratory: cough. denies: shortness of breath Cardiovascular: denies: chest pain Endocrine: no symptoms reported Gastrointestinal: denies: abdominal pain, nausea, diarrhea Genitourinary: denies: urgency, dysuria, discharge Musculoskeletal: denies: back pain, joint swelling, arthralgia Skin: denies: rash, lesions Neurological: denies: headache, weakness, paresthesias Psychiatric: denies: anxiety, depression Hematological/Lymphatic: denies: easy bleeding, easy bruising Physical Exam - Physical Exam Vital Signs: Vital Signs 01/28/17 08:39 Temperature 98.2 F Pulse Rate 88 Respiratory 18 Rate Blood Pressure 108/79 O2 Sat by Pulse 98 Oximetry Physical Exam: GENERAL: The patient is well-developed well-nourished female lying on stretcher not appearing to be in acute distress. [] HEENT: Normocephalic. Atraumatic. Extraocular motions are intact. Patient has moist mucous membranes. NECK: Supple. Trachea midline CHEST/LUNGS: Clear to auscultation. There is no respiratory distress noted. HEART/CARDIOVASCULAR: Regular. There is tachycardia. There is no gallop rub or murmur. ABDOMEN: Abdomen is soft, nontender. Patient has normal bowel sounds. There is no abdominal distention. SKIN: There is no rash. There is no diaphoresis. NEURO: The patient is awake, alert, and oriented. The patient is cooperative. The patient has normal speech MUSCULOSKELETAL: There is no evidence of acute injury. ED Course Vital Signs 01/28/17 08:39 Temperature 98.2 F Pulse Rate 88 Respiratory 18 Rate Blood Pressure 108/79 O2 Sat by Pulse 98 Oximetry ED Medical Decision Making - Lab Data Result diagrams: 01/28/17 11:32 01/28/17 11:32 Laboratory Tests 01/28/17 01/28/17 01/28/17 11:32 11:32 11:32 WBC 4.9 RBC 3.95 Hgb 11.7 Hct 34.2 MCV 87 MCH 30 MCHC 34 RDW 14.6 Plt Count 299 Add Manual Diff Complete Total Counted 100 Seg Neuts % (Manual) 51.0 Band Neutrophils % 0 Lymphocytes % (Manual) 36.0 H Reactive Lymphs % (Man) 0 Monocytes % (Manual) 7.0 Eosinophils % (Manual) 5.0 H Basophils % (Manual) 1.0 Metamyelocytes % 0 Myelocytes % 0 Promyelocytes % 0 Blast Cells % 0 Nucleated RBC % Not Reportable Seg Neutrophils # Man 2.5 Band Neutrophils # 0.0 Lymphocytes # (Manual) 1.8 Abs React Lymphs (Man) 0.0 Monocytes # (Manual) 0.3 Eosinophils # (Manual) 0.2 Basophils # (Manual) 0.0 Metamyelocytes # 0.0 Myelocytes # 0.0 Promyelocytes # 0.0 Blast Cells # 0.0 WBC Morphology Not Reportable Hypersegmented Neuts Not Reportable Hyposegmented Neuts Not Reportable Hypogranular Neuts Not Reportable Smudge Cells Not Reportable Toxic Granulation Not Reportable Toxic Vacuolation Not Reportable Dohle Bodies Not Reportable Pelger-Huet Anomaly Not Reportable Giuseppe Rods Not Reportable Platelet Estimate Consistent w auto Clumped Platelets Not Reportable Plt Clumps, EDTA Not Reportable Large Platelets Not Reportable Giant Platelets Not Reportable Platelet Satelliting Not Reportable Plt Morphology Comment Not Reportable RBC Morphology Not Reportable Dimorphic RBCs Not Reportable Polychromasia Not Reportable Hypochromasia Not Reportable Poikilocytosis Not Reportable Anisocytosis 1+ Microcytosis Not Reportable Macrocytosis Not Reportable Spherocytes Not Reportable Pappenheimer Bodies Not Reportable Sickle Cells Not Reportable Target Cells Not Reportable Tear Drop Cells Not Reportable Ovalocytes Not Reportable Helmet Cells Not Reportable [place] Bodies Not Reportable [place] Rings Not Reportable Arvin Cells Not Reportable Bite Cells Not Reportable Crenated Cell Not Reportable Elliptocytes Not Reportable Acanthocytes (Spur) Not Reportable Rouleaux Not Reportable Hemoglobin C Crystals Not Reportable Schistocytes Not Reportable Malaria parasites Not Reportable Alfonso Bodies Not Reportable Hem Pathologist Commnt No D-Dimer < 135.00 Sodium 140 Potassium 4.3 Chloride 103.0 Carbon Dioxide 29 Anion Gap 12 BUN 9 Creatinine 0.8 Estimated GFR > 60 BUN/Creatinine Ratio 11 Glucose 73 Calcium 9.0 Total Creatine Kinase 158 H CK-MB (CK-2) 1.9 CK-MB (CK-2) Rel Index 1.2 Troponin T 01/28/17 11:32 WBC RBC Hgb Hct MCV MCH MCHC RDW Plt Count Add Manual Diff Total Counted Seg Neuts % (Manual) Band Neutrophils % Lymphocytes % (Manual) Reactive Lymphs % (Man) Monocytes % (Manual) Eosinophils % (Manual) Basophils % (Manual) Metamyelocytes % Myelocytes % Promyelocytes % Blast Cells % Nucleated RBC % Seg Neutrophils # Man Band Neutrophils # Lymphocytes # (Manual) Abs React Lymphs (Man) Monocytes # (Manual) Eosinophils # (Manual) Basophils # (Manual) Metamyelocytes # Myelocytes # Promyelocytes # Blast Cells # WBC Morphology Hypersegmented Neuts Hyposegmented Neuts Hypogranular Neuts Smudge Cells Toxic Granulation Toxic Vacuolation Dohle Bodies Pelger-Huet Anomaly Giuseppe Rods Platelet Estimate Clumped Platelets Plt Clumps, EDTA Large Platelets Giant Platelets Platelet Satelliting Plt Morphology Comment RBC Morphology Dimorphic RBCs Polychromasia Hypochromasia Poikilocytosis Anisocytosis Microcytosis Macrocytosis Spherocytes Pappenheimer Bodies Sickle Cells Target Cells Tear Drop Cells Ovalocytes Helmet Cells [place] Bodies [place] Rings Arvin Cells Bite Cells Crenated Cell Elliptocytes Acanthocytes (Spur) Rouleaux Hemoglobin C Crystals Schistocytes Malaria parasites Alfonso Bodies Hem Pathologist Commnt D-Dimer Sodium Potassium Chloride Carbon Dioxide Anion Gap BUN Creatinine Estimated GFR BUN/Creatinine Ratio Glucose Calcium Total Creatine Kinase CK-MB (CK-2) CK-MB (CK-2) Rel Index Troponin T < 0.010 - EKG Data -: EKG Interpreted by Me EKG shows normal: sinus rhythm Rate: normal - EKG Data When compared to previous EKG there are: previous EKG unavailable Interpretation: normal EKG - Radiology Data Radiology results: report reviewed (CT Chest), image reviewed (CXR, CT Chest) interpreted by me: CXR- no focal infiltrate, no ptx CT Chest- no PE - Differential Diagnosis Pneumonia, PE, bronchitis, ptx Critical care attestation.: If time is entered above; I have spent that time in minutes in the direct care of this critically ill patient, excluding procedure time. ED Disposition Clinical Impression: Pneumonitis, Cough Disposition: DC-01 TO HOME OR SELFCARE Is pt being admited?: No Does the pt Need Aspirin: No Condition: Stable Prescriptions: traMADol [Ultram] 50 mg PO Q6HR PRN #10 tablet PRN Reason: Pain Referrals: PRIMARY CARE, [Primary Care Provider] - 3-5 Days Time of Disposition: 15:21
[2017-01-28 11:50] LABS: Hematocrit 34.2 % (30.3-42.9); Hemoglobin 11.7 gm/dl (10.1-14.3); Mean Corpuscular HGB Conc 34 % (30-34); Mean Corpuscular Hemoglobin 30 pg (28-32); Mean Corpuscular Volume 87 fl (79-97); Platelet Count 299 K/mm3 (140-440); Red Blood Count 3.95 M/mm3 (3.65-5.03); Red Cell Distribution Width 14.6 % (13.2-15.2); White Blood Count 4.9 K/mm3 (4.5-11.0)
--- NOTE | 2017-01-28 11:55 | XRay Report ---
CHEST TWO VIEWS: 01/28/17 08:33:00 CLINICAL: Pleurisy and cough. COMPARISON: 12/25/16 FINDINGS: Normal heart and pulmonary vasculature. The lungs are normally expanded and clear.The bones and soft tissues are unremarkable. IMPRESSION: Normal chest.
[2017-01-28 12:16] LABS: Creatine Kinase MB 1.9 ng/mL (0.0-4.0)
[2017-01-28 12:17] LABS: Anion Gap 12 mmol/L; BUN/Creatinine Ratio 11; Blood Urea Nitrogen 9 mg/dL (7-17); Carbon Dioxide 29 mmol/L (22-30); Creatine Kinase 158 units/L (30-135); Glucose 73 mg/dL (65-100); Potassium 4.3 mmol/L (3.6-5.0); Sodium 140 mmol/L (137-145)
[2017-01-28] MEDS ORDERED: NACL ONE (13:11)
[2017-01-28 13:48] LABS: Anisocytosis 1+; Blastocytes % (Manual) 0 %
[2017-01-28 13:49] LABS: Diff Status Complete; Platelet Estimate Consistent w Auto
--- NOTE | 2017-01-28 14:50 | Cat Scan Report ---
FINAL REPORT PROCEDURE: CT ANGIO CHEST TECHNIQUE: Computerized tomographic angiography of the chest was performed after the IV injection of iodinated nonionic contrast including image processing. The image data was postprocessed using 2-dimensional multiplanar reformatted (MPR) and 3-dimensional (MIP and/or volume rendered) techniques. HISTORY: pleurisy, dyspnea COMPARISON: Chest two views 12/12/2016 FINDINGS: Heart and pericardium: Normal. Thoracic aorta: Normal. Pulmonary vasculature: Normal. Lymph nodes: No enlarged thoracic lymph nodes. Lungs: Subtle bilateral airspace disease most conspicuously of the left worse than right upper lobes. No pulmonary parenchymal mass.. Pleural space: No effusion or pneumothorax. Musculoskeletal structures: No significant abnormality. Upper abdominal structures: No significant abnormality. IMPRESSION: No pulmonary embolism. Subtle bilateral airspace disease subsegmental atelectasis and/or subtle pneumonia/pneumonitis.
[2017-01-28 15:28] VITALS: BP 103/71
== END 2017-01-28 15:52 | disposition home or self-care (01) ==
LOC: ED 08:33
DX: J18.9 Pneumonia, unspecified organism (principal); I11.0 Hypertensive heart disease with heart failure; I50.9 Heart failure, unspecified; E11.9 Type 2 diabetes mellitus without complications; K21.9 Gastro-esophageal reflux disease without esophagitis; M19.90 Unspecified osteoarthritis, unspecified site
CPT/HCPCS: 36415; 71020; 71275; 80048; 82550; 82553; 84484; 85007; 85025; 85379; 93005; 93010; 99284; Q9967

== ENCOUNTER 2017-03-01 13:34 | Emergency (ER) | payer MEDICARE ==
[2017-03-01 14:10] VITALS: BP 105/76
--- NOTE | 2017-03-01 17:10 | XRay Report ---
FINAL REPORT PROCEDURE: Right hand. TECHNIQUE: Three views. HISTORY: Right thumb pain. COMPARISON: No prior studies are available for comparison. FINDINGS: There is deformity of the 5th metacarpal consistent with an old fracture. The bones appear intact. The joint spaces appear satisfactory. The soft tissues are unremarkable. IMPRESSION: Old fracture of the 5th metacarpal.
--- NOTE | 2017-03-01 18:50 | Emergency Department Report ---
ED Upper Extremity Inj HPI - General Chief Complaint: Extremity Injury, Upper Stated Complaint: RT THUMB POSS BROKEN/CHEST COLD Time Seen by Provider: 03/01/17 16:21 Source: patient Mode of arrival: Ambulatory Limitations: No Limitations - History of Present Illness Initial Comments: This is a 51-year-old female nontoxic, well nourished in appearance, no acute signs of distress presents to the ED with c/o of right thumb pain x2 days. Patient stated she was lifting a laundry basket and hit her finger. Patient denies any other trauma to any other extremities. Patient is also c/o of frontal sinus pain with rhinorrhea and dry cough. Patient denies any hemoptysis , wheezing or chest pain. Denies any numbness, tingling, fever, chills, nausea , vomiting, chest pain shortness of breath. Patient states allergies to amoxicillin, penicillin and seafood. Past medical history includes diabetes, asthma, diabetes, GERD, anxiety. MD Complaint: Injury to:: right, finger -: days(s) (2) Other Extremity Injury: Fingers: Right Other Injuries: none Place: home Severity scale (0 -10): 8 Improves With: none Worsens With: none Context: direct blow Associated Symptoms: denies other symptoms. denies: weakness, numbness, neck pain, suspects foreign body, nausea/vomiting, heard/felt popping sensat - Related Data Home Medications Medication Instructions Recorded Confirmed Last Taken Gabapentin [Neurontin] 300 mg PO Q8HR 03/02/15 12/25/16 11/18/16 Previous Rx's Medication Instructions Recorded Last Taken Type Loratadine [Claritin] 10 mg PO QDAY tablet 06/16/15 11/18/16 Rx Diazepam Tab [Valium] 2 mg PO TID PRN #10 tablet 11/18/16 Unknown Rx Meloxicam [Mobic] 7.5 mg PO BID #24 tablet 11/18/16 Unknown Rx hydrOXYzine HCL [Atarax] 25 mg PO Q6HR PRN #30 tablet 12/19/16 Unknown Rx ALBUTEROL Inhaler [ProAir HFA 2 puff IH QID PRN #1 inhalation 12/28/16 Unknown Rx Inhaler] ALBUTEROL NEB's [Proventil 0.083% 2.5 mg IH TID PRN #60 neb 12/28/16 Unknown Rx NEBS] Aspirin [Aspirin BABY CHEW TAB] 81 mg PO QDAY #30 tab.chew 12/28/16 Unknown Rx Budesoni/Formotero 160-4.5(Nf) 1 puff IH BID #1 inha 12/28/16 Unknown Rx [Symbicort 160-4.5 (Nf)] Esomeprazole Magnesium [NexIUM 22.3 mg PO DAILY #7 capsule.dr 12/28/16 Unknown Rx 24Hr] Furosemide [Lasix TAB] 20 mg PO DAILY@0600 #30 tablet 12/28/16 Unknown Rx Ipratropium/Albuterol Sulfate 1 ampul IH Q4HR #1 box 12/28/16 Unknown Rx [DUONEB *Not for PRN Use*] Montelukast [Singulair] 10 mg PO QHS #30 tablet 12/28/16 Unknown Rx predniSONE [Deltasone] 40 mg PO QDAY #20 tablet 12/28/16 Unknown Rx Azithromycin [Zithromax Z-MERARY] 250 mg PO DAILY #6 tablet 01/26/17 Unknown Rx Benzonatate [Tessalon Perle] 100 mg PO DAILY #15 capsule 01/26/17 Unknown Rx traMADol [Ultram] 50 mg PO Q6HR PRN #10 tablet 01/28/17 Unknown Rx Azithromycin [Zithromax Z-MERARY] 250 mg PO DAILY #6 tablet 03/01/17 Unknown Rx Ibuprofen [Motrin] 600 mg PO Q8H PRN #30 tablet 03/01/17 Unknown Rx Allergies Allergy/AdvReac Type Severity Reaction Status Date / Time amoxicillin Allergy Unknown Verified 12/19/16 03:25 Penicillins Allergy Rash Verified 12/19/16 03:25 seafood Allergy Severe Anaphylaxis Uncoded 12/19/16 03:25 ED Review of Systems ROS: Stated complaint: RT THUMB POSS BROKEN/CHEST COLD Other details as noted in HPI Constitutional: denies: chills, fever Eyes: denies: eye pain, eye discharge, vision change ENT: denies: ear pain, throat pain Respiratory: cough. denies: shortness of breath, wheezing Cardiovascular: denies: chest pain, palpitations Endocrine: no symptoms reported Gastrointestinal: denies: abdominal pain, nausea, diarrhea Genitourinary: denies: urgency, dysuria, discharge Musculoskeletal: denies: back pain, joint swelling, arthralgia Skin: denies: rash, lesions Neurological: denies: headache, weakness, paresthesias Psychiatric: denies: anxiety, depression Hematological/Lymphatic: denies: easy bleeding, easy bruising ED Past Medical Hx - Past Medical History Previous Medical History?: Yes Hx Hypertension: Yes Hx Heart Attack/AMI: No Hx Congestive Heart Failure: Yes Hx Diabetes: Yes Hx Pulmonary Embolism: No Hx GERD: Yes Hx Liver Disease: No Hx Renal Disease: No Hx Sickle Cell Disease: No Hx Arthritis: Yes Hx Headaches / Migraines: No Hx Seizures: No Hx Kidney Stones: No Hx Psychiatric Treatment: Yes (Anxiety) Hx Asthma: Yes (has been intubated before for severe asthma) Hx Tuberculosis: No Hx HIV: No Additional medical history: Intubated x 8. heart murmur. osteoporosis. hearing loss in [place] - Surgical History Past Surgical History?: Yes Hx Coronary Stent: No Hx Open Heart Surgery: No Hx Pacemaker: No Hx Internal Defibrillator: No Hx Cholecystectomy: No Hx Appendectomy: No Hx Breast Surgery: No Additional Surgical History: cataracts, nasal surg, tubal ligation. bilateral foot - Social History Smoking Status: Never Smoker Substance Use Type: Prescribed - Medications Home Medications: Home Medications Medication Instructions Recorded Confirmed Last Taken Type Gabapentin [Neurontin] 300 mg PO Q8HR 03/02/15 12/25/16 11/18/16 History Loratadine [Claritin] 10 mg PO QDAY tablet 06/16/15 12/25/16 11/18/16 Rx Diazepam Tab [Valium] 2 mg PO TID PRN #10 tablet 11/18/16 12/25/16 Unknown Rx Meloxicam [Mobic] 7.5 mg PO BID #24 tablet 11/18/16 12/25/16 Unknown Rx hydrOXYzine HCL [Atarax] 25 mg PO Q6HR PRN #30 tablet 12/19/16 12/25/16 Unknown Rx ALBUTEROL Inhaler [ProAir HFA 2 puff IH QID PRN #1 inhalation 12/28/16 Unknown Rx Inhaler] ALBUTEROL NEB's [Proventil 0.083% 2.5 mg IH TID PRN #60 neb 12/28/16 Unknown Rx NEBS] Aspirin [Aspirin BABY CHEW TAB] 81 mg PO QDAY #30 tab.chew 12/28/16 Unknown Rx Budesoni/Formotero 160-4.5(Nf) 1 puff IH BID #1 inha 12/28/16 Unknown Rx [Symbicort 160-4.5 (Nf)] Esomeprazole Magnesium [NexIUM 22.3 mg PO DAILY #7 capsule.dr 12/28/16 Unknown Rx 24Hr] Furosemide [Lasix TAB] 20 mg PO DAILY@0600 #30 tablet 12/28/16 Unknown Rx Ipratropium/Albuterol Sulfate 1 ampul IH Q4HR #1 box 12/28/16 Unknown Rx [DUONEB *Not for PRN Use*] Montelukast [Singulair] 10 mg PO QHS #30 tablet 12/28/16 Unknown Rx predniSONE [Deltasone] 40 mg PO QDAY #20 tablet 12/28/16 Unknown Rx Azithromycin [Zithromax Z-MERARY] 250 mg PO DAILY #6 tablet 01/26/17 Unknown Rx Benzonatate [Tessalon Perle] 100 mg PO DAILY #15 capsule 01/26/17 Unknown Rx traMADol [Ultram] 50 mg PO Q6HR PRN #10 tablet 01/28/17 Unknown Rx Azithromycin [Zithromax Z-MERARY] 250 mg PO DAILY #6 tablet 03/01/17 Unknown Rx Ibuprofen [Motrin] 600 mg PO Q8H PRN #30 tablet 03/01/17 Unknown Rx ED Physical Exam - General Limitations: No Limitations General appearance: alert, in no apparent distress - Head Head exam: Present: atraumatic, normocephalic, normal inspection - Eye Eye exam: Present: normal appearance, PERRL, EOMI. Absent: scleral icterus, conjunctival injection, nystagmus, periorbital swelling, periorbital tenderness Pupils: Present: normal accommodation - ENT ENT exam: Present: normal exam, normal orophraynx, mucous membranes moist, TM's normal bilaterally, normal external ear exam - Neck Neck exam: Present: normal inspection, full ROM. Absent: tenderness, meningismus, lymphadenopathy, thyromegaly - Respiratory Respiratory exam: Present: normal lung sounds bilaterally. Absent: respiratory distress, wheezes, rales, rhonchi, stridor, chest wall tenderness, accessory muscle use, decreased breath sounds, prolonged expiratory - Cardiovascular Cardiovascular Exam: Present: regular rate, normal rhythm, normal heart sounds. Absent: bradycardia, tachycardia, irregular rhythm, systolic murmur, diastolic murmur, rubs, gallop - GI/Abdominal GI/Abdominal exam: Present: soft, normal bowel sounds. Absent: distended, tenderness, guarding, rebound, rigid, diminished bowel sounds - Rectal Rectal exam: Present: deferred - Extremities Exam Extremities exam: Present: normal inspection, full ROM, tenderness, normal capillary refill. Absent: pedal edema, joint swelling, calf tenderness - Expanded Upper Extremity Exam Right General: Present: normal inspection Shoulder Exam: Present: normal inspection, full ROM Upper Arm exam: Present: normal inspection, full ROM Elbow exam: Present: normal inspection, full ROM Forearm Wrist exam: Present: normal inspection, full ROM Hand Wrist exam: Present: normal inspection, full ROM, tenderness (right thumb) . Absent: swelling, abrasion, laceration, ecchymosis, deformity, crepidus, dislocation, erythema, amputation, nail avulsion, subungual hematoma Neuro motor exam: Present: wrist extension intact, thumb opposition intact, thumb IP flexion intact, thumb adduction intact, fingers 2-5 abduction intact Neurosensory exam: Present: 2-point discrimination, radial nerve intact, ulnar nerve intact, median nerve intact Vascular: Present: vascular compromise, normal capillary refill, radial pulse, brachial pulse, ulnar pulse - Back Exam Back exam: Present: normal inspection, full ROM. Absent: tenderness, CVA tenderness (R), CVA tenderness (L), muscle spasm, paraspinal tenderness, vertebral tenderness, rash noted - Neurological Exam Neurological exam: Present: alert, oriented X3, CN II-XII intact, normal gait, reflexes normal - Psychiatric Psychiatric exam: Present: normal affect, normal mood - Skin Skin exam: Present: warm, dry, intact, normal color. Absent: rash - Other Other exam information: Positive frontal sinus tenderness ED Course Vital Signs 03/01/17 14:07 Temperature 98.4 F Pulse Rate 85 Respiratory 20 Rate Blood Pressure 105/76 O2 Sat by Pulse 98 Oximetry - Reevaluation(s) Reevaluation #1: 03/01/17 19:07 Patient is speaking in full sentences with no signs of distress noted. ED Medical Decision Making - Medical Decision Making This is a 51-year-old female that presents with thumb strain, old 5th metacarpal fracture and sinusitis. Patient was examined by me patient. X-ray has been obtained and the radiologist with normal examination except old fracture of the fifth metacarpal. Patient received a boxer splint and was instructed to follow up with a orthopedic doctor. Post splint assessment: Neurovascular intact with normal capillary refill and normal sensation. Patient was treated with Augmentin for sinusitis. Patient was instructed to Follow-up with a primary care doctor/orthopedic doctor in 3-5 days or if symptoms worsen and continue return to emergency room as soon as possible. At time time of discharge, the patient does not seem toxic or ill in appearance. No acute signs of distress noted. Patient agrees to discharge treatment plan of care. No further questions noted by the patient. Critical care attestation.: If time is entered above; I have spent that time in minutes in the direct care of this critically ill patient, excluding procedure time. ED Disposition Clinical Impression: Strain of thumb Closed fracture of 5th metacarpal Qualifiers: Encounter type: initial encounter Metacarpal location: unspecified portion of metacarpal Fracture alignment: nondisplaced Laterality: right Qualified Code(s) : S62.306A - Unspecified fracture of fifth metacarpal bone, right hand, initial encounter for closed fracture Acute frontal sinusitis Qualifiers: Recurrence: non-recurrent Qualified Code(s): J01.10 - Acute frontal sinusitis, unspecified Disposition: DC-01 TO HOME OR SELFCARE Is pt being admited?: No Does the pt Need Aspirin: No Condition: Stable Instructions: Ibuprofen (By mouth), Amoxicillin/Clavulanate Potassium (By mouth ), Finger Fracture (ED), Sinusitis (ED), Splint Care (ED) Additional Instructions: Follow-up with a primary care doctor/orthopedic doctor in 3-5 days or if symptoms worsen and continue return to emergency room as soon as possible. Prescriptions: Azithromycin [Zithromax Z-MERARY] 250 mg PO DAILY #6 tablet Ibuprofen [Motrin] 600 mg PO Q8H PRN #30 tablet PRN Reason: Pain Referrals: [facility] [Outside] - 3-5 Days [facility] [Outside] - 3-5 Days JAXON COX MD [Primary Care Provider] - 3-5 Days ALICIA PEÑA MD [Staff Physician] - 3-5 Days JANICE TORRES MD [Staff Physician] - 3-5 Days Forms: Work/School Release Form(ED)
== END 2017-03-01 19:38 | disposition home or self-care (01) ==
LOC: ED 13:34
DX: S62.306A Unspecified fracture of fifth metacarpal bone, right hand, initial encounter for closed fracture (principal); J01.10 Acute frontal sinusitis, unspecified; S56.117A Strain of flexor muscle, fascia and tendon of right little finger at forearm level, initial encounter; W22.8XXA Striking against or struck by other objects, initial encounter; Y93.89 Activity, other specified; Y92.89 Other specified places as the place of occurrence of the external cause; Y99.8 Other external cause status

== ENCOUNTER 2017-03-15 23:48 | Emergency (ER) | payer MEDICARE ==
[2017-03-16 02:52] LABS: Basophils % (Auto) 0.9 % (0.0-1.8); Eosinophils % (Auto) 1.4 % (0.0-4.3); Hematocrit 31.3 % (30.3-42.9); Hemoglobin 10.7 gm/dl (10.1-14.3); Mean Corpuscular HGB Conc 34 % (30-34); Mean Corpuscular Hemoglobin 30 pg (28-32); Mean Corpuscular Volume 88 fl (79-97); Platelet Count 241 K/mm3 (140-440); Red Blood Count 3.55 M/mm3 (3.65-5.03); White Blood Count 7.8 K/mm3 (4.5-11.0)
[2017-03-16 03:15] LABS: Anion Gap 16 mmol/L; BUN/Creatinine Ratio 23; Blood Urea Nitrogen 16 mg/dL (7-17); Calcium 8.7 mg/dL (8.4-10.2); Carbon Dioxide 23 mmol/L (22-30); Chloride 102.8 mmol/L (98-107); Glucose 104 mg/dL (65-100); Potassium 3.8 mmol/L (3.6-5.0); Sodium 138 mmol/L (137-145)
--- NOTE | 2017-03-16 07:28 | XRay Report ---
ROUTINE CHEST, TWO VIEWS: HISTORY: Shortness of breath. Mild central pulmonary venous congestion is suspected. The lungs are clear. No pleural effusion or pneumothorax. Normal heart and mediastinal structures. No acute thoracic deformity. IMPRESSION: Mild central pulmonary venous congestion. No acute process noted.
[2017-03-16] MEDS ORDERED: PEPCID PO ONE (11:43)
[2017-03-16] MEDS ORDERED: ALUM-MAG HYDROX-SIMETH 200-200-20MG/5ML PO ONE (11:43)
--- NOTE | 2017-03-16 11:44 | Emergency Department Report ---
ED General Adult HPI - General Chief complaint: Dyspnea/Respdistress Stated complaint: SHRUTHI Time Seen by Provider: 03/16/17 11:32 Source: patient, RN notes reviewed, old records reviewed Mode of arrival: Ambulatory Limitations: No Limitations - History of Present Illness Initial comments: Primary care Dr.: Dr. Baumann Past medical history: Diabetes, hypertension, asthma, nonischemic cardiac myopathy, pulmonary hypertension. Of note, patient recently admitted to this hospital, has had a negative cardiac catheterization for coronary artery disease , also recently had a CT scan of the chest performed January 28 which showed no pulmonary embolus. The patient is a 51-year-old female who presents to the ER with chest pressure or tightness and discomfort. The pressure started at 8:00 in the evening yesterday. it does not have exacerbating or relieving factors. It does not radiate to the back, arms or neck. There is no vomiting or diaphoresis. There is chronic shortness of breath. Patient reports feeling "bloated" in her abdominal region. There is no leg pain, there is no leg swelling, no recent surgeries, no recent hospital admissions, no DVT or pulmonary embolus risk factors. -: Gradual, hour(s) Location: chest Radiation: non-radiation Severity scale (0 -10): 5 Quality: aching Consistency: intermittent Improves with: none Worsens with: none Associated Symptoms: chest pain, cough, loss of appetite, shortness of breath, weakness - Related Data Home Medications Medication Instructions Recorded Confirmed Last Taken Gabapentin [Neurontin] 300 mg PO Q8HR 03/02/15 12/25/16 11/18/16 Previous Rx's Medication Instructions Recorded Last Taken Type Loratadine [Claritin] 10 mg PO QDAY tablet 06/16/15 11/18/16 Rx Diazepam Tab [Valium] 2 mg PO TID PRN #10 tablet 11/18/16 Unknown Rx Meloxicam [Mobic] 7.5 mg PO BID #24 tablet 11/18/16 Unknown Rx hydrOXYzine HCL [Atarax] 25 mg PO Q6HR PRN #30 tablet 12/19/16 Unknown Rx ALBUTEROL Inhaler [ProAir HFA 2 puff IH QID PRN #1 inhalation 12/28/16 Unknown Rx Inhaler] ALBUTEROL NEB's [Proventil 0.083% 2.5 mg IH TID PRN #60 neb 12/28/16 Unknown Rx NEBS] Aspirin [Aspirin BABY CHEW TAB] 81 mg PO QDAY #30 tab.chew 12/28/16 Unknown Rx Budesoni/Formotero 160-4.5(Nf) 1 puff IH BID #1 inha 12/28/16 Unknown Rx [Symbicort 160-4.5 (Nf)] Esomeprazole Magnesium [NexIUM 22.3 mg PO DAILY #7 capsule.dr 12/28/16 Unknown Rx 24Hr] Furosemide [Lasix TAB] 20 mg PO DAILY@0600 #30 tablet 12/28/16 Unknown Rx Ipratropium/Albuterol Sulfate 1 ampul IH Q4HR #1 box 12/28/16 Unknown Rx [DUONEB *Not for PRN Use*] Montelukast [Singulair] 10 mg PO QHS #30 tablet 12/28/16 Unknown Rx predniSONE [Deltasone] 40 mg PO QDAY #20 tablet 12/28/16 Unknown Rx Azithromycin [Zithromax Z-MERARY] 250 mg PO DAILY #6 tablet 01/26/17 Unknown Rx Benzonatate [Tessalon Perle] 100 mg PO DAILY #15 capsule 01/26/17 Unknown Rx traMADol [Ultram] 50 mg PO Q6HR PRN #10 tablet 01/28/17 Unknown Rx Azithromycin [Zithromax Z-MERARY] 250 mg PO DAILY #6 tablet 03/01/17 Unknown Rx Ibuprofen [Motrin] 600 mg PO Q8H PRN #30 tablet 03/01/17 Unknown Rx Allergies Allergy/AdvReac Type Severity Reaction Status Date / Time amoxicillin Allergy Unknown Verified 03/16/17 01:08 Penicillins Allergy Rash Verified 03/16/17 01:08 seafood Allergy Severe Anaphylaxis Uncoded 03/16/17 01:08 ED Review of Systems ROS: Stated complaint: SHRUTHI Other details as noted in HPI Constitutional: denies: fever Eyes: denies: eye discharge ENT: denies: epistaxis Respiratory: denies: wheezing Cardiovascular: denies: syncope Gastrointestinal: as per HPI Genitourinary: as per HPI Musculoskeletal: as per HPI Skin: as per HPI Neurological: as per HPI Psychiatric: as per HPI ED Past Medical Hx - Past Medical History Previous Medical History?: Yes Hx Hypertension: Yes Hx Heart Attack/AMI: No Hx Congestive Heart Failure: Yes Hx Diabetes: Yes Hx Pulmonary Embolism: No Hx GERD: Yes Hx Liver Disease: No Hx Renal Disease: No Hx Sickle Cell Disease: No Hx Arthritis: Yes Hx Headaches / Migraines: No Hx Seizures: No Hx Kidney Stones: No Hx Psychiatric Treatment: Yes (Anxiety) Hx Asthma: Yes (has been intubated before for severe asthma) Hx Tuberculosis: No Hx HIV: No Additional medical history: Intubated x 8. heart murmur. osteoporosis. hearing loss in [place] - Surgical History Past Surgical History?: Yes Hx Coronary Stent: No Hx Open Heart Surgery: No Hx Pacemaker: No Hx Internal Defibrillator: No Hx Cholecystectomy: No Hx Appendectomy: No Hx Breast Surgery: No Additional Surgical History: cataracts, nasal surg, tubal ligation. bilateral foot - Social History Smoking Status: Never Smoker - Medications Home Medications: Home Medications Medication Instructions Recorded Confirmed Last Taken Type Gabapentin [Neurontin] 300 mg PO Q8HR 03/02/15 12/25/16 11/18/16 History Loratadine [Claritin] 10 mg PO QDAY tablet 06/16/15 12/25/16 11/18/16 Rx Diazepam Tab [Valium] 2 mg PO TID PRN #10 tablet 11/18/16 12/25/16 Unknown Rx Meloxicam [Mobic] 7.5 mg PO BID #24 tablet 11/18/16 12/25/16 Unknown Rx hydrOXYzine HCL [Atarax] 25 mg PO Q6HR PRN #30 tablet 12/19/16 12/25/16 Unknown Rx ALBUTEROL Inhaler [ProAir HFA 2 puff IH QID PRN #1 inhalation 12/28/16 Unknown Rx Inhaler] ALBUTEROL NEB's [Proventil 0.083% 2.5 mg IH TID PRN #60 neb 12/28/16 Unknown Rx NEBS] Aspirin [Aspirin BABY CHEW TAB] 81 mg PO QDAY #30 tab.chew 12/28/16 Unknown Rx Budesoni/Formotero 160-4.5(Nf) 1 puff IH BID #1 inha 12/28/16 Unknown Rx [Symbicort 160-4.5 (Nf)] Esomeprazole Magnesium [NexIUM 22.3 mg PO DAILY #7 capsule.dr 12/28/16 Unknown Rx 24Hr] Furosemide [Lasix TAB] 20 mg PO DAILY@0600 #30 tablet 12/28/16 Unknown Rx Ipratropium/Albuterol Sulfate 1 ampul IH Q4HR #1 box 12/28/16 Unknown Rx [DUONEB *Not for PRN Use*] Montelukast [Singulair] 10 mg PO QHS #30 tablet 12/28/16 Unknown Rx predniSONE [Deltasone] 40 mg PO QDAY #20 tablet 12/28/16 Unknown Rx Azithromycin [Zithromax Z-MERARY] 250 mg PO DAILY #6 tablet 01/26/17 Unknown Rx Benzonatate [Tessalon Perle] 100 mg PO DAILY #15 capsule 01/26/17 Unknown Rx traMADol [Ultram] 50 mg PO Q6HR PRN #10 tablet 01/28/17 Unknown Rx Azithromycin [Zithromax Z-MERARY] 250 mg PO DAILY #6 tablet 03/01/17 Unknown Rx Ibuprofen [Motrin] 600 mg PO Q8H PRN #30 tablet 03/01/17 Unknown Rx ED Physical Exam - General Limitations: No Limitations General appearance: alert, in no apparent distress - Head Head exam: Present: atraumatic, normocephalic - Eye Eye exam: Present: normal appearance, EOMI. Absent: nystagmus - ENT ENT exam: Present: normal exam, normal orophraynx, mucous membranes moist, normal external ear exam - Neck Neck exam: Present: normal inspection, full ROM - Respiratory Respiratory exam: Present: normal lung sounds bilaterally. Absent: respiratory distress, wheezes, rales, rhonchi, stridor, chest wall tenderness - Cardiovascular Cardiovascular Exam: Present: regular rate, normal rhythm, normal heart sounds. Absent: bradycardia, tachycardia, irregular rhythm, systolic murmur, diastolic murmur, rubs, gallop - GI/Abdominal GI/Abdominal exam: Present: soft, normal bowel sounds. Absent: distended, tenderness, guarding, rebound, rigid, pulsatile mass - Extremities Exam Extremities exam: Present: normal inspection, full ROM, normal capillary refill , other (no palpable cord, no Homans sign). Absent: pedal edema, joint swelling , calf tenderness - Back Exam Back exam: Present: normal inspection, full ROM. Absent: tenderness, CVA tenderness (R), paraspinal tenderness - Neurological Exam Neurological exam: Present: alert, oriented X3, CN II-XII intact, normal gait, other (Extraocular movements intact. Tongue midline. No facial droop. Facial sensation intact to light touch in the V1, V2, V3 distribution bilaterally. 5 and 5 strength in 4 extremities.. Sensation is intact to light touch in 4 extremities.). Absent: motor sensory deficit - Psychiatric Psychiatric exam: Present: normal affect, normal mood - Skin Skin exam: Present: warm, dry, intact, normal color. Absent: rash ED Course Vital Signs 03/16/17 03/16/17 03/16/17 01:08 06:35 06:38 Temperature 98.2 F Pulse Rate 87 88 Respiratory 18 20 Rate Blood Pressure 123/69 Blood Pressure [Left] O2 Sat by Pulse 100 Oximetry 03/16/17 03/16/17 03/16/17 08:26 11:48 12:22 Temperature Pulse Rate 75 78 77 Respiratory 18 18 17 Rate Blood Pressure Blood Pressure 108/65 112/70 114/62 [Left] O2 Sat by Pulse 100 97 Oximetry - Reevaluation(s) Reevaluation #1: 03/16/17 12:19 Differential diagnosis, including the not limited to: Pulmonary hypertension, asthma, COPD, pneumonia, acute coronary syndrome, anxiety, GERD, gastritis, osteochondritis, hiatal hernia Assessment and plan: 51-year-old female with atypical chest pain. When I walk into the room, the patient is sleeping on her stretcher, listening to headphones. She is not in any distress. She is not hypoxic. Objectively speaking. Patient had a cardiac catheterization within the past few months at this hospital which demonstrated normal coronary artery anatomy, and nonischemic heart myopathy. She does have some chronic medical issues including pulmonary hypertension and asthma, but she is not wheezing she is not hypoxic so she does not appear to be clinically acutely decompensated from these entities. She is low risk by well's criteria with no pulmonary embolus risk factors, and she is low risk by MAHSA score and low risk by heart score. 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 She felt improved after symptomatically medication, and will be discharged at this time. ED Medical Decision Making - Lab Data Result diagrams: 03/16/17 02:34 03/16/17 02:34 Vital Signs 03/16/17 03/16/17 03/16/17 01:08 06:35 06:38 Temperature 98.2 F Pulse Rate 87 88 Respiratory 18 20 Rate Blood Pressure 123/69 Blood Pressure [Left] O2 Sat by Pulse 100 Oximetry 03/16/17 03/16/17 08:26 11:48 Temperature Pulse Rate 75 78 Respiratory 18 18 Rate Blood Pressure Blood Pressure 108/65 112/70 [Left] O2 Sat by Pulse 100 Oximetry Labs 03/16/17 03/16/17 03/16/17 02:34 02:34 07:55 WBC 7.8 RBC 3.55 L Hgb 10.7 Hct 31.3 MCV 88 MCH 30 MCHC 34 RDW 15.0 Plt Count 241 Lymph % (Auto) 34.5 Day % (Auto) 9.0 H Eos % (Auto) 1.4 Baso % (Auto) 0.9 Lymph # 2.7 Day # 0.7 Eos # 0.1 Baso # 0.1 Seg Neutrophils % 54.2 Seg Neutrophils # 4.2 Sodium 138 Potassium 3.8 Chloride 102.8 Carbon Dioxide 23 Anion Gap 16 BUN 16 Creatinine 0.7 Estimated GFR > 60 BUN/Creatinine Ratio 23 Glucose 104 H Calcium 8.7 Troponin T < 0.010 < 0.010 - EKG Data -: EKG Interpreted by Me - EKG Data When compared to previous EKG there are: no significant change Interpretation: no acute changes, unchanged when compared t 03/16/17 12:21 EKG #1 demonstrates normal sinus, 80 bpm, normal intervals, normal axis, not morphologically consistent with ST elevation myocardial infarction. EKG #2 is unchanged with the exception of motion artifact, EKGs appear to be unchanged from prior EKG from January 2017. - Radiology Data Radiology results: report reviewed, image reviewed X-ray of the chest is negative for acute disease, pulmonary hypertension/ vascular congestion is noted, however no acute findings are appreciated. Critical care attestation.: If time is entered above; I have spent that time in minutes in the direct care of this critically ill patient, excluding procedure time. ED Disposition Clinical Impression: Chest pain at rest Disposition: DC-01 TO HOME OR SELFCARE Is pt being admited?: No Does the pt Need Aspirin: No Condition: Stable Instructions: Chest Pain (ED) Additional Instructions: Continue current outpatient medications. Will up with either a primary care doctor or cardiology doctor within the next week. Follow up with her pulmonary doctor within the next month. Dr. Baumann is a local primary care doctor; Dr. Hannah is a local cardiology doctor, and Dr. Ricks is a local lung doctor. Return to the ER right away with new pain, worsened pain, migration of pain, fevers, chills, lethargy, irritability, projectile vomiting, change in mental status, confusion, inability to tolerate liquid feeds. Referrals: PRIMARY CARE, [Primary Care Provider] - 3-5 Days SARAH HANNAH MD [Staff Physician] - 3-5 Days KEISHA JAMES MD [Staff Physician] - 3-5 Days RON BAUMANN MD [Staff Physician] - 3-5 Days
[2017-03-16 12:22] VITALS: BP 114/62
== END 2017-03-16 13:42 | disposition home or self-care (01) ==
LOC: ED 23:48
DX: R07.89 Other chest pain (principal); I10 Essential (primary) hypertension; E11.9 Type 2 diabetes mellitus without complications; J45.909 Unspecified asthma, uncomplicated
CPT/HCPCS: 36415; 71020; 80048; 82962; 84484; 85025; 93005; 93010

== ENCOUNTER 2017-03-30 05:27 | Emergency (ER) | payer MEDICARE ==
[2017-03-30] MEDS ORDERED: DUONEB *Not for PRN Use IH ONE (05:58)
[2017-03-30 06:26] LABS: Basophils % (Auto) 0.9 % (0.0-1.8); Eosinophils % (Auto) 8.6 % (0.0-4.3); Hemoglobin 11.1 gm/dl (10.1-14.3); Mean Corpuscular HGB Conc 34 % (30-34); Mean Corpuscular Hemoglobin 29 pg (28-32); Mean Corpuscular Volume 87 fl (79-97); Platelet Count 216 K/mm3 (140-440); Red Blood Count 3.81 M/mm3 (3.65-5.03); Red Cell Distribution Width 13.6 % (13.2-15.2); White Blood Count 3.9 K/mm3 (4.5-11.0)
[2017-03-30 06:47] LABS: Anion Gap 15 mmol/L; BUN/Creatinine Ratio 13; Blood Urea Nitrogen 12 mg/dL (7-17); Calcium 9.3 mg/dL (8.4-10.2); Carbon Dioxide 27 mmol/L (22-30); Glucose 81 mg/dL (65-100); Sodium 142 mmol/L (137-145)
--- NOTE | 2017-03-30 07:01 | XRay Report ---
FINAL REPORT EXAM: XR CHEST ROUTINE 2V HISTORY: Shortness of breath TECHNIQUE: PA and lateral views of the chest were submitted. Comparison is made study of 12/12/2016. FINDINGS: Heart size and mediastinum appear normal. The lungs are clear. Pleural fluid is not seen. The bones and soft tissues do not show any acute changes. IMPRESSION: No active chest disease.
[2017-03-30] MEDS ORDERED: PROVENTIL IH ONE (07:25)
--- NOTE | 2017-03-30 07:29 | Emergency Department Report ---
HPI - General Chief Complaint: Dyspnea/Respdistress Time Seen by Provider: 03/30/17 07:05 - HPI HPI: This is a 51-year-old English female presents to the emergency department from home, dropped off by family, with complaint of shortness of breath and wheezing since yesterday. She has a history of severe asthma and has required intubation previously. She also has a history of CHF, diabetes, GERD, hypertension. She says that yesterday her blood pressure and blood sugar were elevated so she took an extra blood pressure medication as well as an extra metformin. She is out of her inhaler and nebulizer treatments. She is not a smoker herself but says that there are people that sometimes will smoke around her. She also complains of some nasal congestion and drainage. Most likely not related to her breathing, the patient also complains of some left hip pain that has been getting worse over the past 4-5 days. She feels like they are sharp shooting pains that go up to her back and down to her leg. The patient has had multiple visits in the past month or so for some breathing issues. She says that she saw her PCP, Dr. Baumann, and was prescribed some medication but was told by the pharmacy she was not yet able to fill it. No recent travel or sick contacts at home. ED Past Medical Hx - Past Medical History Hx Hypertension: Yes Hx Heart Attack/AMI: No Hx Congestive Heart Failure: Yes Hx Diabetes: Yes Hx Pulmonary Embolism: No Hx GERD: Yes Hx Liver Disease: No Hx Renal Disease: No Hx Sickle Cell Disease: No Hx Arthritis: Yes Hx Headaches / Migraines: No Hx Seizures: No Hx Kidney Stones: No Hx Psychiatric Treatment: Yes (Anxiety) Hx Asthma: Yes (has been intubated before for severe asthma) Hx Tuberculosis: No Hx HIV: No Additional medical history: Intubated x 8. heart murmur. osteoporosis. hearing loss in [place] - Surgical History Hx Coronary Stent: No Hx Open Heart Surgery: No Hx Pacemaker: No Hx Internal Defibrillator: No Hx Cholecystectomy: No Hx Appendectomy: No Hx Breast Surgery: No Additional Surgical History: cataracts, nasal surg, tubal ligation. bilateral foot - Social History Smoking Status: Never Smoker Substance Use Type: None - Medications Home Medications: Home Medications Medication Instructions Recorded Confirmed Last Taken Type Gabapentin [Neurontin] 300 mg PO Q8HR 03/02/15 12/25/16 11/18/16 History Loratadine [Claritin] 10 mg PO QDAY tablet 06/16/15 12/25/16 11/18/16 Rx Diazepam Tab [Valium] 2 mg PO TID PRN #10 tablet 11/18/16 12/25/16 Unknown Rx Meloxicam [Mobic] 7.5 mg PO BID #24 tablet 11/18/16 12/25/16 Unknown Rx hydrOXYzine HCL [Atarax] 25 mg PO Q6HR PRN #30 tablet 12/19/16 12/25/16 Unknown Rx Aspirin [Aspirin BABY CHEW TAB] 81 mg PO QDAY #30 tab.chew 12/28/16 Unknown Rx Budesoni/Formotero 160-4.5(Nf) 1 puff IH BID #1 inha 12/28/16 Unknown Rx [Symbicort 160-4.5 (Nf)] Esomeprazole Magnesium [NexIUM 22.3 mg PO DAILY #7 capsule. 12/28/16 Unknown Rx 24Hr] Furosemide [Lasix TAB] 20 mg PO DAILY@0600 #30 tablet 12/28/16 Unknown Rx Ipratropium/Albuterol Sulfate 1 ampul IH Q4HR #1 box 12/28/16 Unknown Rx [DUONEB *Not for PRN Use*] Montelukast [Singulair] 10 mg PO QHS #30 tablet 12/28/16 Unknown Rx predniSONE [Deltasone] 40 mg PO QDAY #20 tablet 12/28/16 Unknown Rx Azithromycin [Zithromax Z-MERARY] 250 mg PO DAILY #6 tablet 01/26/17 Unknown Rx Benzonatate [Tessalon Perle] 100 mg PO DAILY #15 capsule 01/26/17 Unknown Rx Azithromycin [Zithromax Z-MERARY] 250 mg PO DAILY #6 tablet 03/01/17 Unknown Rx Ibuprofen [Motrin] 600 mg PO Q8H PRN #30 tablet 03/01/17 Unknown Rx ALBUTEROL Inhaler [ProAir HFA 2 puff IH QID PRN #1 inhalation 03/30/17 Unknown Rx Inhaler] ALBUTEROL NEB's [Proventil 0.083% 2.5 mg IH TID PRN #60 neb 03/30/17 Unknown Rx NEBS] predniSONE [Deltasone] 20 mg PO BID #6 tablet 03/30/17 Unknown Rx traMADol [Ultram 50 MG tab] 50 mg PO Q6HR PRN #8 tablet 03/30/17 Unknown Rx ED Review of Systems ROS: Stated complaint: ATHMA ATTACK Other details as noted in HPI Comment: All other systems reviewed and negative Constitutional: denies: chills, fever Eyes: denies: eye pain, eye discharge, vision change ENT: denies: ear pain, throat pain Respiratory: cough, shortness of breath, wheezing Cardiovascular: denies: palpitations, edema Gastrointestinal: denies: abdominal pain, nausea, diarrhea Genitourinary: denies: urgency, dysuria, discharge Musculoskeletal: back pain, arthralgia Skin: denies: rash, lesions Neurological: denies: headache, weakness, paresthesias Physical Exam - Physical Exam Vital Signs: Vital Signs 03/30/17 06:01 Temperature 98.9 F Pulse Rate 82 Respiratory 26 H Rate Blood Pressure 112/78 O2 Sat by Pulse 96 Oximetry Physical Exam: GENERAL: The patient is well-developed well-nourished. HENT: Normocephalic. Atraumatic. Patient has moist mucous membranes. EYES: Extraocular motions are intact. Pupils equal reactive to light bilaterally. NECK: Supple. Trachea is midline. CHEST/LUNGS: Mild expiratory wheezing. No tachypnea or accessory muscle use. There is no respiratory distress noted. HEART/CARDIOVASCULAR: Regular. There is no tachycardia. There is no murmur. ABDOMEN: Abdomen is soft, nontender. Patient has normal bowel sounds. There is no abdominal distention. SKIN: Skin is warm and dry. NEURO: The patient is awake, alert, and oriented. The patient is cooperative. The patient has no focal neurologic deficits. The patient has normal speech and gait. MUSCULOSKELETAL: There is no tenderness or deformity. There is no limitation range of motion. There is no evidence of acute injury. Muscle strength 5 out of 5 for upper and lower extremities including EHL bilaterally. ED Course Vital Signs 03/30/17 06:01 Temperature 98.9 F Pulse Rate 82 Respiratory 26 H Rate Blood Pressure 112/78 O2 Sat by Pulse 96 Oximetry ED Medical Decision Making - Lab Data Result diagrams: 03/30/17 06:08 03/30/17 06:08 - EKG Data -: EKG Interpreted by Me EKG shows normal: sinus rhythm, axis, intervals, QRS complexes, ST-T waves Rate: normal - EKG Data When compared to previous EKG there are: previous EKG unavailable Interpretation: normal EKG - Radiology Data Radiology results: image reviewed interpreted by me: X-ray of the left hip does not show any fracture, dislocation or any acute process. Chest x-ray does not show any acute process. There are no pleural effusions, obvious pneumonia and there is no pneumothorax. - Medical Decision Making The patient complained of some shortness of breath and asthma-like symptoms having been out of her asthma medications. Just complains of some acute on chronic left hip pain. Regarding hip pain, x-ray was done that does not show any fracture, consultation or any acute process. She says that sometimes it will shoot down her leg or up to the back and could be some type of sciatica or neuropathy. However she does not have any numbness or paresthesias, any problems with bowel or bladder, she is able to ambulate without any instability and she appears stable overall. She was given a shot of Toradol and upon reevaluation she says there is some improvement. Regarding the breathing, she has some mild expiratory wheezing. There is no tachypnea or excessive muscle use and she does not appear to be in any respiratory distress. Chest x-ray does not show any acute process. Her labs are unremarkable including no signs of CHF, pulmonary embolism or infection. She was given some steroids and breathing treatments and upon reevaluation she is feeling improved. She will go home with steroids, inhaler and nebulizer medications. She was encouraged follow-up with her PCP and was given a referral for an orthopedist for her hip pain. Vital signs stable throughout her ED course. - Differential Diagnosis asthma, bronchitis, COPD, pneumonia Critical Care Time: No Critical care attestation.: If time is entered above; I have spent that time in minutes in the direct care of this critically ill patient, excluding procedure time. ED Disposition Clinical Impression: Hip pain, left Asthma exacerbation Qualifiers: Asthma severity: unspecified severity Asthma persistence: unspecified Qualified Code(s): J45.901 - Unspecified asthma with (acute) exacerbation Disposition: - TO HOME OR SELFCARE Is pt being admited?: No Condition: Stable Instructions: Asthma (ED), Arthralgia (ED) Additional Instructions: Please follow-up with your primary care physician in the next few days. I have given you a referral for a local orthopedist, Dr. Herzog, to follow-up regarding your hip pain. You have been prescribed a medication that is sedating and therefore should not be taken prior to driving, working, and responsible for children and in no way should be mixed with alcohol of any quantity. Prescriptions: ALBUTEROL Inhaler [ProAir HFA Inhaler] 2 puff IH QID PRN #1 inhalation PRN Reason: Shortness Of Breath ALBUTEROL NEB's [Proventil 0.083% NEBS] 2.5 mg IH TID PRN #60 neb PRN Reason: Wheezing predniSONE [Deltasone] 20 mg PO BID #6 tablet traMADol [Ultram 50 MG tab] 50 mg PO Q6HR PRN #8 tablet PRN Reason: Pain Referrals: RON BAUMANN MD [Primary Care Provider] - 3-5 Days JANICE HERZOG MD [Staff Physician] - 3-5 Days Forms: Work/School Release Form(ED)
[2017-03-30 08:02] LABS: INR 1.35 (0.87-1.13)
[2017-03-30 08:03] LABS: Partial Thromboplastin Time 32.6 Sec. (24.2-36.6)
[2017-03-30] MEDS ORDERED: TORADOL IV ONE (08:15)
--- NOTE | 2017-03-30 10:49 | XRay Report ---
LEFT HIP, 2 views: History: Left hip pain. The bony architecture is intact without evidence of fracture or dislocation. No significant soft tissue abnormality is seen. IMPRESSION: Normal left hip.
[2017-03-30 10:51] VITALS: BP 118/74
== END 2017-03-30 10:58 | disposition home or self-care (01) ==
LOC: ED 05:27
DX: J45.901 Unspecified asthma with (acute) exacerbation (principal); M25.552 Pain in left hip; I10 Essential (primary) hypertension; E11.9 Type 2 diabetes mellitus without complications; K21.9 Gastro-esophageal reflux disease without esophagitis
CPT/HCPCS: 36415; 71020; 73502; 80048; 83880; 84484; 85025; 85379; 85610; 85730; 87400; 93005; 93010; 94640; 96374; 96375; 99284; J1885; J2930

== ENCOUNTER 2017-05-26 18:24 | Emergency (ER) | payer MEDICARE ==
[2017-05-26] MEDS ORDERED: DUONEB *Not for PRN Use IH ONE ×2 (20:43→23:28)
[2017-05-26] MEDS ORDERED: TESSALON PERLES PO ONE (23:46)
[2017-05-26] MEDS ORDERED: DELTASONE PO ONE (23:46)
[2017-05-26] MEDS ORDERED: ZITHROMAX PO ONE (23:46)
--- NOTE | 2017-05-27 00:11 | XRay Report ---
FINAL REPORT PROCEDURE: XR CHEST 1V AP TECHNIQUE: Chest radiograph anteroposterior view. CPT 69445 HISTORY: chest pain COMPARISON: No prior studies are available for comparison. FINDINGS: Heart: Normal. Mediastinum/Vessels: Normal. Lungs/Pleural space: Lungs are clear. There are no infiltrates, effusions or pneumothoraces.. Bony thorax: No acute osseous abnormality. Life support devices: None. IMPRESSION: No acute cardiopulmonary abnormality.
--- NOTE | 2017-05-27 01:29 | Emergency Department Report ---
HPI - General Chief Complaint: Adult Asthma Time Seen by Provider: 05/26/17 23:27 - HPI HPI: The patient is a 51-year-old female with a significant history of asthma, presents for evaluation of dyspnea. The patient reports 2 days of a nonproductive cough and progressive dyspnea, mild to moderate severity, constant for the past one day, exacerbated with exertion or activity, improved with breathing treatments. The patient denies fever, trauma to the chest, chest pain, syncope, hemoptysis, unilateral leg swelling, oral contraceptive use , recent immobilization, history of DVT or PE, recent cancer. ED Past Medical Hx - Past Medical History Previous Medical History?: Yes Hx Hypertension: Yes Hx Heart Attack/AMI: No Hx Congestive Heart Failure: Yes Hx Diabetes: Yes Hx Pulmonary Embolism: No Hx GERD: Yes Hx Liver Disease: No Hx Renal Disease: No Hx Sickle Cell Disease: No Hx Arthritis: Yes Hx Headaches / Migraines: No Hx Seizures: No Hx Kidney Stones: No Hx Psychiatric Treatment: Yes (Anxiety) Hx Asthma: Yes (has been intubated before for severe asthma) Hx Tuberculosis: No Hx HIV: No Additional medical history: Intubated x 8. heart murmur. osteoporosis. hearing loss in [place] - Surgical History Hx Coronary Stent: No Hx Open Heart Surgery: No Hx Pacemaker: No Hx Internal Defibrillator: No Hx Cholecystectomy: No Hx Appendectomy: No Hx Breast Surgery: No Additional Surgical History: cataracts, nasal surg, tubal ligation. bilateral foot - Social History Smoking Status: Never Smoker Substance Use Type: None - Medications Home Medications: Home Medications Medication Instructions Recorded Confirmed Last Taken Type Gabapentin [Neurontin] 300 mg PO Q8HR 03/02/15 12/25/16 11/18/16 History Loratadine [Claritin] 10 mg PO QDAY tablet 06/16/15 12/25/16 11/18/16 Rx Diazepam Tab [Valium] 2 mg PO TID PRN #10 tablet 11/18/16 12/25/16 Unknown Rx Meloxicam [Mobic] 7.5 mg PO BID #24 tablet 11/18/16 12/25/16 Unknown Rx hydrOXYzine HCL [Atarax] 25 mg PO Q6HR PRN #30 tablet 12/19/16 12/25/16 Unknown Rx Aspirin [Aspirin BABY CHEW TAB] 81 mg PO QDAY #30 tab.chew 12/28/16 Unknown Rx Budesoni/Formotero 160-4.5(Nf) 1 puff IH BID #1 inha 12/28/16 Unknown Rx [Symbicort 160-4.5 (Nf)] Esomeprazole Magnesium [NexIUM 22.3 mg PO DAILY #7 capsule. 12/28/16 Unknown Rx 24Hr] Furosemide [Lasix TAB] 20 mg PO DAILY@0600 #30 tablet 12/28/16 Unknown Rx Ipratropium/Albuterol Sulfate 1 ampul IH Q4HR #1 box 12/28/16 Unknown Rx [DUONEB *Not for PRN Use*] Montelukast [Singulair] 10 mg PO QHS #30 tablet 12/28/16 Unknown Rx predniSONE [Deltasone] 40 mg PO QDAY #20 tablet 12/28/16 Unknown Rx Azithromycin [Zithromax Z-MERARY] 250 mg PO DAILY #6 tablet 01/26/17 Unknown Rx Benzonatate [Tessalon Perle] 100 mg PO DAILY #15 capsule 01/26/17 Unknown Rx Ibuprofen [Motrin] 600 mg PO Q8H PRN #30 tablet 03/01/17 Unknown Rx ALBUTEROL Inhaler [ProAir HFA 2 puff IH QID PRN #1 inhalation 03/30/17 Unknown Rx Inhaler] ALBUTEROL NEB's [Proventil 0.083% 2.5 mg IH TID PRN #60 neb 03/30/17 Unknown Rx NEBS] predniSONE [Deltasone] 20 mg PO BID #6 tablet 03/30/17 Unknown Rx traMADol [Ultram 50 MG tab] 50 mg PO Q6HR PRN #8 tablet 03/30/17 Unknown Rx ALBUTEROL Inhaler [ProAir HFA 2 puff IH QID PRN #1 inhalation 05/27/17 Unknown Rx Inhaler] Azithromycin [Zithromax Z-MERARY] 250 mg PO QDAY #6 tablet 05/27/17 Unknown Rx Oseltamivir [Tamiflu] 75 mg PO BID #10 cap 05/27/17 Unknown Rx Phenylephrine/Dm/Acetaminop/GG 20 ml PO Q4HR PRN #180 liquid 05/27/17 Unknown Rx [Mucinex Nlkh-Evh-Ggeccjevqy Lq] predniSONE [Deltasone] 20 mg PO QDAY #5 tab 05/27/17 Unknown Rx ED Review of Systems ROS: Stated complaint: ASTHMA/CP Other details as noted in HPI Constitutional: denies: fever ENT: denies: throat or neck pain Respiratory: reports cough, shortness of breath Cardiovascular: denies: chest pain Endocrine: denies unexplained weight loss or gain Gastrointestinal: denies: abdominal pain, nausea Genitourinary: denies: dysuria Musculoskeletal: denies: leg swelling Skin: denies: rash Neurological: denies: headache Hematological/Lymphatic: denies: easy bleeding or easy bruising Psych: denies sadness or hopelessness Physical Exam - Physical Exam Vital Signs: Vital Signs 05/26/17 05/26/17 05/26/17 20:33 22:01 22:16 Temperature 98 F Pulse Rate 79 Pulse Rate [ 75 77 Bilateral Throughout] Respiratory 18 Rate Respiratory 18 18 Rate [Bilateral Throughout] Blood Pressure 134/91 O2 Sat by Pulse 95 Oximetry 05/27/17 05/27/17 00:12 00:27 Temperature Pulse Rate Pulse Rate [ 73 75 Bilateral Throughout] Respiratory Rate Respiratory 18 18 Rate [Bilateral Throughout] Blood Pressure O2 Sat by Pulse Oximetry Physical Exam: General: well-nourished, well-developed, no acute distress Head: Normocephalic, atraumatic Eyes: normal sclera ENT: Mucous membranes are pink and moist Neck: trachea midline, neck supple, No neck stiffness, no cervical adenopathy Respiratory: Mildly diminished breath sounds and wheezing present throughout lung greene bilaterally, no costal retractions, no respiratory distress Cardio: S1 and S2 present, no murmurs, rubs, gallops, capillary refill is brisk Abdomen: Normoactive bowel sounds, soft abdomen, no rigidity, no guarding or rebound tenderness Musc: No pitting edema Skin: No rash Neuro: no facial drooping, normal speech Psych: Normal affect ED Course Vital Signs 05/26/17 05/26/17 05/26/17 20:33 22:01 22:16 Temperature 98 F Pulse Rate 79 Pulse Rate [ 75 77 Bilateral Throughout] Respiratory 18 Rate Respiratory 18 18 Rate [Bilateral Throughout] Blood Pressure 134/91 O2 Sat by Pulse 95 Oximetry 05/27/17 05/27/17 00:12 00:27 Temperature Pulse Rate Pulse Rate [ 73 75 Bilateral Throughout] Respiratory Rate Respiratory 18 18 Rate [Bilateral Throughout] Blood Pressure O2 Sat by Pulse Oximetry ED Medical Decision Making - Medical Decision Making The patient was seen and examined by myself. The patient is placed on a waste reclaimer and continuous pulse ox. On initial evaluation, the patient was found to be in no distress. Evaluation orders were placed. The patient is given a breathing treatment and steroids for txt of COPD. Chest x-ray negative for focal consolidation, pleural effusions, pulmonary congestion, pneumothorax, or other acute cardio pulmonary disease process. The patient was reevaluated and reported that their symptoms were markedly improved. On reexamination the patient is found to have normal respiratory rate and O2 sat on pulse oximetry, with no costal retractions or diminishment of breath sounds on auscultation. The patient is stable for discharge with outpatient follow-up. The patient is given follow-up and return instructions. The patient expressed understanding and agreed with the plan. The patient is discharged in stable condition. Critical care attestation.: If time is entered above; I have spent that time in minutes in the direct care of this critically ill patient, excluding procedure time. ED Disposition Clinical Impression: Upper respiratory infection, acute, Acute viral syndrome Asthma exacerbation Qualifiers: Asthma severity: mild Asthma persistence: persistent Qualified Code(s): J45.31 - Mild persistent asthma with (acute) exacerbation Disposition: TO HOME OR SELFCARE Is pt being admited?: No Does the pt Need Aspirin: No Condition: Stable Instructions: Asthma (ED), Upper Respiratory Infection (ED), Viral Syndrome (ED ) Prescriptions: ALBUTEROL Inhaler [ProAir HFA Inhaler] 2 puff IH QID PRN #1 inhalation PRN Reason: Shortness Of Breath Azithromycin [Zithromax Z-MERARY] 250 mg PO QDAY #6 tablet Oseltamivir [Tamiflu] 75 mg PO BID #10 cap Phenylephrine/Dm/Acetaminop/GG [Mucinex Qmij-Wze-Zlgspznxvm Lq] 20 ml PO Q4HR PRN #180 liquid PRN Reason: cough and sore throat predniSONE [Deltasone] 20 mg PO QDAY #5 tab Referrals: MAYA CARRIZALES MD [Primary Care Provider] - 3-5 Days Time of Disposition: 01:28
[2017-05-27 03:19] VITALS: BP 134/86
== END 2017-05-27 03:19 | disposition home or self-care (01) ==
LOC: ED 18:24
DX: J06.9 Acute upper respiratory infection, unspecified (principal); J45.901 Unspecified asthma with (acute) exacerbation; B34.9 Viral infection, unspecified; I11.0 Hypertensive heart disease with heart failure; I50.9 Heart failure, unspecified; E11.9 Type 2 diabetes mellitus without complications; M19.90 Unspecified osteoarthritis, unspecified site
CPT/HCPCS: 71045; 87400; 93005; 93010; 94640; 99284; J7512

== ENCOUNTER 2017-06-18 13:43 | Emergency (ER) | payer MEDICARE ==
[2017-06-18] MEDS ORDERED: ASPIRIN PO ONE (13:49)
[2017-06-18 14:05] LABS: Basophils % (Auto) 0.6 % (0.0-1.8); Eosinophils # (Auto) 0.3 K/mm3 (0.0-0.4); Eosinophils % (Auto) 4.7 % (0.0-4.3); Hematocrit 35.5 % (30.3-42.9); Hemoglobin 11.8 gm/dl (10.1-14.3); Lymphocytes # (Auto) 2.3 K/mm3 (1.2-5.4); Lymphocytes % (Auto) 34.7 % (13.4-35.0); Mean Corpuscular HGB Conc 33 % (30-34); Mean Corpuscular Hemoglobin 29 pg (28-32); Mean Corpuscular Volume 87 fl (79-97); Monocytes # (Auto) 0.6 K/mm3 (0.0-0.8); Platelet Count 241 K/mm3 (140-440); Red Cell Distribution Width 13.9 % (13.2-15.2)
[2017-06-18 14:21] LABS: BUN/Creatinine Ratio 17; Blood Urea Nitrogen 17 mg/dL (7-17); Calcium 9.3 mg/dL (8.4-10.2); Hemolysis Index 2
--- NOTE | 2017-06-18 18:39 | XRay Report ---
FINAL REPORT EXAM: XR CHEST ROUTINE 2V HISTORY: SOB TECHNIQUE: PA and lateral views of the chest PRIORS: CXR 05/26/2017 FINDINGS: Lines, tubes, and devices: N/A Lungs and pleura: Trachea is normal in position. Lungs are clear of infiltrate, pleural effusion, vascular congestion, or pneumothorax. No change. Cardiomediastinal silhouette: Cardiac and mediastinal silhouettes are unremarkable. Other: Bony structures are intact. IMPRESSION: No acute cardiopulmonary process seen. No change.
[2017-06-18] MEDS ORDERED: ASPIRIN ONE (18:42)
[2017-06-18] MEDS ORDERED: DUONEB *Not for PRN Use IH ONE (18:52)
--- NOTE | 2017-06-18 19:27 | Emergency Department Report ---
HPI - General Chief Complaint: Chest Pain Time Seen by Provider: 06/18/17 18:20 - HPI HPI: 51-year-old female presents to the emergency department with complaint of a 4-5 day history of some left-sided chest cramping/pain. Patient says that the cramping sensation began down in her feet and legs. She also says that she has been dealing with left shoulder pain secondary to injury and has been getting physical therapy, through Dr. Barcenas, for her left shoulder pain. She says that when she is moving her left upper extremity and shoulder that she feels a pulling and/or cramping sensation to the left lateral portion of her chest. She saw her primary care physician, Dr. Baumann, last and she says that she was placed on Zanaflex. She says that this is not been helping. She says that she had an appointment to see her windows infrastructure engineer last week , Dr. Hannah, but there was some medication and she was unable to get into that appointment. She denies any fever, nausea, vomiting, diaphoresis. Patient has a past medical history of asthma, CHF, diabetes, GERD, hypertension, anxiety. She had a echocardiogram done in December of last year that showed an EF of 50- 55%. She had a heart catheterization at that time that did not show any stenosis or require any stenting but shows some dilated nonischemic cardiomyopathy. Recent travel or sick contacts at home. ED Past Medical Hx - Past Medical History Hx Hypertension: Yes Hx Heart Attack/AMI: No Hx Congestive Heart Failure: Yes Hx Diabetes: Yes Hx Pulmonary Embolism: No Hx GERD: Yes Hx Liver Disease: No Hx Renal Disease: No Hx Sickle Cell Disease: No Hx Arthritis: Yes Hx Headaches / Migraines: No Hx Seizures: No Hx Kidney Stones: No Hx Psychiatric Treatment: Yes (Anxiety) Hx Asthma: Yes (has been intubated before for severe asthma) Hx Tuberculosis: No Hx HIV: No Additional medical history: Intubated x 8. heart murmur. osteoporosis. hearing loss in [place] - Surgical History Hx Coronary Stent: No Hx Open Heart Surgery: No Hx Pacemaker: No Hx Internal Defibrillator: No Hx Cholecystectomy: No Hx Appendectomy: No Hx Breast Surgery: No Additional Surgical History: cataracts, nasal surg, tubal ligation. bilateral foot - Social History Smoking Status: Unknown if ever smoked Substance Use Type: None - Medications Home Medications: Home Medications Medication Instructions Recorded Confirmed Last Taken Type Gabapentin [Neurontin] 300 mg PO Q8HR 03/02/15 12/25/16 11/18/16 History Loratadine [Claritin] 10 mg PO QDAY tablet 06/16/15 12/25/16 11/18/16 Rx Diazepam Tab [Valium] 2 mg PO TID PRN #10 tablet 11/18/16 12/25/16 Unknown Rx Meloxicam [Mobic] 7.5 mg PO BID #24 tablet 11/18/16 12/25/16 Unknown Rx hydrOXYzine HCL [Atarax] 25 mg PO Q6HR PRN #30 tablet 12/19/16 12/25/16 Unknown Rx Aspirin [Aspirin BABY CHEW TAB] 81 mg PO QDAY #30 tab.chew 12/28/16 Unknown Rx Budesoni/Formotero 160-4.5(Nf) 1 puff IH BID #1 inha 12/28/16 Unknown Rx [Symbicort 160-4.5 (Nf)] Esomeprazole Magnesium [NexIUM 22.3 mg PO DAILY #7 capsule. 12/28/16 Unknown Rx 24Hr] Furosemide [Lasix TAB] 20 mg PO DAILY@0600 #30 tablet 12/28/16 Unknown Rx Ipratropium/Albuterol Sulfate 1 ampul IH Q4HR #1 box 12/28/16 Unknown Rx [DUONEB *Not for PRN Use*] Montelukast [Singulair] 10 mg PO QHS #30 tablet 12/28/16 Unknown Rx predniSONE [Deltasone] 40 mg PO QDAY #20 tablet 12/28/16 Unknown Rx Azithromycin [Zithromax Z-MERARY] 250 mg PO DAILY #6 tablet 01/26/17 Unknown Rx Benzonatate [Tessalon Perle] 100 mg PO DAILY #15 capsule 01/26/17 Unknown Rx Ibuprofen [Motrin] 600 mg PO Q8H PRN #30 tablet 03/01/17 Unknown Rx ALBUTEROL Inhaler [ProAir HFA 2 puff IH QID PRN #1 inhalation 03/30/17 Unknown Rx Inhaler] ALBUTEROL NEB's [Proventil 0.083% 2.5 mg IH TID PRN #60 neb 03/30/17 Unknown Rx NEBS] predniSONE [Deltasone] 20 mg PO BID #6 tablet 03/30/17 Unknown Rx traMADol [Ultram 50 MG tab] 50 mg PO Q6HR PRN #8 tablet 03/30/17 Unknown Rx ALBUTEROL Inhaler [ProAir HFA 2 puff IH QID PRN #1 inhalation 05/27/17 Unknown Rx Inhaler] Azithromycin [Zithromax Z-MERARY] 250 mg PO QDAY #6 tablet 05/27/17 Unknown Rx Oseltamivir [Tamiflu] 75 mg PO BID #10 cap 05/27/17 Unknown Rx Phenylephrine/Dm/Acetaminop/GG 20 ml PO Q4HR PRN #180 liquid 05/27/17 Unknown Rx [Mucinex Vusf-Arv-Bocmvukhdy Lq] predniSONE [Deltasone] 20 mg PO QDAY #5 tab 05/27/17 Unknown Rx ED Review of Systems ROS: Stated complaint: CHEST PAIN Other details as noted in HPI Comment: All other systems reviewed and negative Constitutional: denies: chills, fever Eyes: denies: eye pain, eye discharge, vision change ENT: denies: ear pain, throat pain Respiratory: denies: cough, shortness of breath, wheezing Cardiovascular: chest pain. denies: palpitations Gastrointestinal: denies: abdominal pain, nausea, diarrhea Genitourinary: denies: urgency, dysuria, discharge Musculoskeletal: arthralgia, myalgia Skin: denies: rash, lesions Neurological: denies: headache, weakness, paresthesias Physical Exam - Physical Exam Vital Signs: Vital Signs 06/18/17 06/18/17 13:54 16:54 Temperature 99 F Pulse Rate 89 89 Respiratory 18 20 Rate Blood Pressure 104/66 Blood Pressure 92/71 [Right] O2 Sat by Pulse 97 97 Oximetry Physical Exam: GENERAL: The patient is well-developed well-nourished. HENT: Normocephalic. Atraumatic. Patient has moist mucous membranes. EYES: Extraocular motions are intact. Pupils equal reactive to light bilaterally. NECK: Supple. Trachea is midline. CHEST/LUNGS: Clear to auscultation. There is no respiratory distress noted. There is some reproducible chest wall discomfort to palpation. HEART/CARDIOVASCULAR: Regular. There is no tachycardia. There is no murmur. ABDOMEN: Abdomen is soft, nontender. Patient has normal bowel sounds. There is no abdominal distention. SKIN: Skin is warm and dry. NEURO: The patient is awake, alert, and oriented. The patient is cooperative. The patient has no focal neurologic deficits. The patient has normal speech. MUSCULOSKELETAL: There is no tenderness or deformity. There is no limitation range of motion. There is no evidence of acute injury. ED Course Vital Signs 06/18/17 06/18/17 13:54 16:54 Temperature 99 F Pulse Rate 89 89 Respiratory 18 20 Rate Blood Pressure 104/66 Blood Pressure 92/71 [Right] O2 Sat by Pulse 97 97 Oximetry ED Medical Decision Making - Lab Data Result diagrams: 06/18/17 13:54 06/18/17 13:54 - EKG Data -: EKG Interpreted by Me EKG shows normal: sinus rhythm, axis, intervals, QRS complexes, ST-T waves Rate: normal - EKG Data When compared to previous EKG there are: previous EKG unavailable Interpretation: normal EKG - Radiology Data Radiology results: image reviewed interpreted by me: Chest x-ray does not show any acute process. There are no pleural effusions, obvious pneumonia and there is no pneumothorax. - Medical Decision Making Patient presents with a few days of some left-sided chest discomfort that she describes as cramping in nature. She also is dealing with a chronic left shoulder injury and is getting physical therapy. She says that the chest pain/ cramping worsens with movement of the shoulder. She has normal sounding heart and lungs to auscultation. The chest pain is reproducible to palpation at this time. EKG is normal without ST elevation PR, ischemia or dysrhythmia. Labs are unremarkable including negative troponins 3. She has no complaints of shortness of breath, is low on the well's score criteria and negative on the pulmonary embolism rule out criteria. I spoke with Dr. Lior Caba of the [facility] who agrees that the patient sounds safe for discharge home at this time and they're happy to see her in the office in the next day or so. The patient has also been encouraged to follow up with her primary care physician and her orthopedist. She will return to ER with any worsening of her symptoms or any acute distress. - Differential Diagnosis costochondritis, PR, muscle spasm Critical Care Time: No Critical care attestation.: If time is entered above; I have spent that time in minutes in the direct care of this critically ill patient, excluding procedure time. ED Disposition Clinical Impression: Chest wall pain, Muscle spasm Disposition: - TO HOME OR SELFCARE Is pt being admited?: No Condition: Stable Instructions: Chest Pain (ED), Costochondritis (ED) Additional Instructions: Please follow up with your primary care physician, windows infrastructure engineer and orthopedist in the next few days. Return to the emergency Department with any worsening of your symptoms or any acute distress. Referrals: RON BAUMANN MD [Staff Physician] - DEEPAK SARAH HANNAH MD [Staff Physician] - DEEPAK Time of Disposition: 21:25
[2017-06-18] MEDS ORDERED: VALIUM PO ONE (19:52)
[2017-06-18 21:55] VITALS: BP 130/80
== END 2017-06-18 21:56 | disposition home or self-care (01) ==
LOC: ED 13:43
DX: R07.89 Other chest pain (principal); M62.838 Other muscle spasm; I10 Essential (primary) hypertension; E11.9 Type 2 diabetes mellitus without complications; K21.9 Gastro-esophageal reflux disease without esophagitis; M19.90 Unspecified osteoarthritis, unspecified site; F41.9 Anxiety disorder, unspecified; J45.909 Unspecified asthma, uncomplicated; Z98.51 Tubal ligation status; Z88.0 Allergy status to penicillin; Z91.013 Allergy to seafood; Z88.1 Allergy status to other antibiotic agents
CPT/HCPCS: 36415; 71046; 80048; 84484; 85025; 93005; 93010; 94640

== ENCOUNTER 2017-07-25 08:01 | Emergency (ER) | payer MEDICARE ==
[2017-07-25 08:10] VITALS: BP 120/72
--- NOTE | 2017-07-25 08:41 | XRay Report ---
ROUTINE CHEST, TWO VIEWS: Cough. PA and lateral views demonstrate the heart and mediastinal contour to be of normal size and shape. The lungs are clear and fully expanded and the soft tissues and bony structures are normal. IMPRESSION: Normal study.
[2017-07-25 09:46] LABS: Basophils # (Auto) 0.1 K/mm3 (0.0-0.1); Basophils % (Auto) 1.4 % (0.0-1.8); Eosinophils # (Auto) 0.4 K/mm3 (0.0-0.4); Eosinophils % (Auto) 8.4 % (0.0-4.3); Hematocrit 35.2 % (30.3-42.9); Hemoglobin 11.7 gm/dl (10.1-14.3); Lymphocytes # (Auto) 1.6 K/mm3 (1.2-5.4); Lymphocytes % (Auto) 37.3 % (13.4-35.0); Mean Corpuscular HGB Conc 33 % (30-34); Mean Corpuscular Hemoglobin 29 pg (28-32); Mean Corpuscular Volume 86 fl (79-97); Monocytes # (Auto) 0.4 K/mm3 (0.0-0.8); Monocytes % (Auto) 9.7 % (0.0-7.3); Platelet Count 229 K/mm3 (140-440); Red Blood Count 4.08 M/mm3 (3.65-5.03); Red Cell Distribution Width 13.6 % (13.2-15.2)
[2017-07-25 09:57] LABS: BUN/Creatinine Ratio 15; Blood Urea Nitrogen 12 mg/dL (7-17); Calcium 9.2 mg/dL (8.4-10.2); Hemolysis Index 5
--- NOTE | 2017-07-25 11:21 | Emergency Department Report ---
ED Chest Pain HPI - General Chief Complaint: Chest Pain Stated Complaint: ASTHMA/CHEST PAIN Time Seen by Provider: 07/25/17 11:06 Source: patient Mode of arrival: Ambulatory Limitations: No Limitations - History of Present Illness Initial Comments: Patient is 51 years old history of asthma and arthritis. Patient presented to the ER complaining of left-sided chest pain, sharp in nature, does not radiate, increased with movement and improves remaining still. Patient also stated that she's been having cough and some shortness of breath. Patient denied any fever , nausea or vomiting. Patient is also complaining of dry mouth and wiped his discoloration in her hard palate. Patient stated that she is out of her albuterol and Advair. MD Complaint: chest pain -: week(s) Onset: during rest Pain Location: left chest Pain Radiation: none Severity: moderate Severity scale (0 -10): 5 Quality: sharp Consistency: intermittent Improves With: remaining still Worsens With: movement Other Symptoms: cough - Related Data Home Medications Medication Instructions Recorded Confirmed Last Taken Gabapentin [Neurontin] 300 mg PO Q8HR 03/02/15 12/25/16 11/18/16 Previous Rx's Medication Instructions Recorded Last Taken Type Loratadine [Claritin] 10 mg PO QDAY tablet 06/16/15 11/18/16 Rx Diazepam Tab [Valium] 2 mg PO TID PRN #10 tablet 11/18/16 Unknown Rx Meloxicam [Mobic] 7.5 mg PO BID #24 tablet 11/18/16 Unknown Rx hydrOXYzine HCL [Atarax] 25 mg PO Q6HR PRN #30 tablet 12/19/16 Unknown Rx Aspirin [Aspirin BABY CHEW TAB] 81 mg PO QDAY #30 tab.chew 12/28/16 Unknown Rx Budesoni/Formotero 160-4.5(Nf) 1 puff IH BID #1 inha 12/28/16 Unknown Rx [Symbicort 160-4.5 (Nf)] Esomeprazole Magnesium [NexIUM 22.3 mg PO DAILY #7 capsule. 12/28/16 Unknown Rx 24Hr] Furosemide [Lasix TAB] 20 mg PO DAILY@0600 #30 tablet 12/28/16 Unknown Rx Ipratropium/Albuterol Sulfate 1 ampul IH Q4HR #1 box 12/28/16 Unknown Rx [DUONEB *Not for PRN Use*] Montelukast [Singulair] 10 mg PO QHS #30 tablet 12/28/16 Unknown Rx predniSONE [Deltasone] 40 mg PO QDAY #20 tablet 12/28/16 Unknown Rx Azithromycin [Zithromax Z-MERARY] 250 mg PO DAILY #6 tablet 01/26/17 Unknown Rx Benzonatate [Tessalon Perle] 100 mg PO DAILY #15 capsule 01/26/17 Unknown Rx Ibuprofen [Motrin] 600 mg PO Q8H PRN #30 tablet 03/01/17 Unknown Rx ALBUTEROL Inhaler [ProAir HFA 2 puff IH QID PRN #1 inhalation 03/30/17 Unknown Rx Inhaler] ALBUTEROL NEB's [Proventil 0.083% 2.5 mg IH TID PRN #60 neb 03/30/17 Unknown Rx NEBS] predniSONE [Deltasone] 20 mg PO BID #6 tablet 03/30/17 Unknown Rx traMADol [Ultram 50 MG tab] 50 mg PO Q6HR PRN #8 tablet 03/30/17 Unknown Rx ALBUTEROL Inhaler [ProAir HFA 2 puff IH QID PRN #1 inhalation 05/27/17 Unknown Rx Inhaler] Azithromycin [Zithromax Z-MERARY] 250 mg PO QDAY #6 tablet 05/27/17 Unknown Rx Oseltamivir [Tamiflu] 75 mg PO BID #10 cap 05/27/17 Unknown Rx Phenylephrine/Dm/Acetaminop/GG 20 ml PO Q4HR PRN #180 liquid 05/27/17 Unknown Rx [Mucinex Ocop-Vuc-Uvmevrohso Lq] predniSONE [Deltasone] 20 mg PO QDAY #5 tab 05/27/17 Unknown Rx Allergies Allergy/AdvReac Type Severity Reaction Status Date / Time amoxicillin Allergy Unknown Verified 07/25/17 08:05 Penicillins Allergy Rash Verified 07/25/17 08:05 seafood Allergy Severe Anaphylaxis Uncoded 03/16/17 01:08 Heart Score - HEART Score History: Slightly suspicious EKG: Non-specific Age: 45-65 Risk factors: 1-2 risk factors Troponin: < normal limit HEART Score: 3 - Critical Actions Critical Actions: 0-3 pts:0.9-1.7%risk of adverse cardiac event.Candidate for discharge ED Review of Systems ROS: Stated complaint: ASTHMA/CHEST PAIN Other details as noted in HPI Comment: All other systems reviewed and negative Constitutional: denies: chills, fever Respiratory: cough, shortness of breath, wheezing. denies: orthopnea, SOB with exertion, SOB at rest, stridor Cardiovascular: chest pain. denies: palpitations, dyspnea on exertion Gastrointestinal: denies: abdominal pain, nausea, vomiting Neurological: denies: headache, weakness, numbness, paresthesias ED Past Medical Hx - Past Medical History Hx Hypertension: Yes Hx Heart Attack/AMI: No Hx Congestive Heart Failure: Yes Hx Diabetes: Yes Hx Pulmonary Embolism: No Hx GERD: Yes Hx Liver Disease: No Hx Renal Disease: No Hx Sickle Cell Disease: No Hx Arthritis: Yes Hx Headaches / Migraines: No Hx Seizures: No Hx Kidney Stones: No Hx Psychiatric Treatment: Yes (Anxiety) Hx Asthma: Yes (has been intubated before for severe asthma) Hx Tuberculosis: No Hx HIV: No Additional medical history: Intubated x 8. heart murmur. osteoporosis. hearing loss in [place] - Surgical History Hx Coronary Stent: No Hx Open Heart Surgery: No Hx Pacemaker: No Hx Internal Defibrillator: No Hx Cholecystectomy: No Hx Appendectomy: No Hx Breast Surgery: No Additional Surgical History: cataracts, nasal surg, tubal ligation. bilateral foot - Social History Smoking Status: Never Smoker Substance Use Type: None - Medications Home Medications: Home Medications Medication Instructions Recorded Confirmed Last Taken Type Gabapentin [Neurontin] 300 mg PO Q8HR 03/02/15 12/25/16 11/18/16 History Loratadine [Claritin] 10 mg PO QDAY tablet 06/16/15 12/25/16 11/18/16 Rx Diazepam Tab [Valium] 2 mg PO TID PRN #10 tablet 11/18/16 12/25/16 Unknown Rx Meloxicam [Mobic] 7.5 mg PO BID #24 tablet 11/18/16 12/25/16 Unknown Rx hydrOXYzine HCL [Atarax] 25 mg PO Q6HR PRN #30 tablet 12/19/16 12/25/16 Unknown Rx Aspirin [Aspirin BABY CHEW TAB] 81 mg PO QDAY #30 tab.chew 12/28/16 Unknown Rx Budesoni/Formotero 160-4.5(Nf) 1 puff IH BID #1 inha 12/28/16 Unknown Rx [Symbicort 160-4.5 (Nf)] Esomeprazole Magnesium [NexIUM 22.3 mg PO DAILY #7 capsule. 12/28/16 Unknown Rx 24Hr] Furosemide [Lasix TAB] 20 mg PO DAILY@0600 #30 tablet 12/28/16 Unknown Rx Ipratropium/Albuterol Sulfate 1 ampul IH Q4HR #1 box 12/28/16 Unknown Rx [DUONEB *Not for PRN Use*] Montelukast [Singulair] 10 mg PO QHS #30 tablet 12/28/16 Unknown Rx predniSONE [Deltasone] 40 mg PO QDAY #20 tablet 12/28/16 Unknown Rx Azithromycin [Zithromax Z-MERARY] 250 mg PO DAILY #6 tablet 01/26/17 Unknown Rx Benzonatate [Tessalon Perle] 100 mg PO DAILY #15 capsule 01/26/17 Unknown Rx Ibuprofen [Motrin] 600 mg PO Q8H PRN #30 tablet 03/01/17 Unknown Rx ALBUTEROL Inhaler [ProAir HFA 2 puff IH QID PRN #1 inhalation 03/30/17 Unknown Rx Inhaler] ALBUTEROL NEB's [Proventil 0.083% 2.5 mg IH TID PRN #60 neb 03/30/17 Unknown Rx NEBS] predniSONE [Deltasone] 20 mg PO BID #6 tablet 03/30/17 Unknown Rx traMADol [Ultram 50 MG tab] 50 mg PO Q6HR PRN #8 tablet 03/30/17 Unknown Rx ALBUTEROL Inhaler [ProAir HFA 2 puff IH QID PRN #1 inhalation 05/27/17 Unknown Rx Inhaler] Azithromycin [Zithromax Z-MERARY] 250 mg PO QDAY #6 tablet 05/27/17 Unknown Rx Oseltamivir [Tamiflu] 75 mg PO BID #10 cap 05/27/17 Unknown Rx Phenylephrine/Dm/Acetaminop/GG 20 ml PO Q4HR PRN #180 liquid 05/27/17 Unknown Rx [Mucinex Dfkl-Wkf-Lljsniyfaz Lq] predniSONE [Deltasone] 20 mg PO QDAY #5 tab 05/27/17 Unknown Rx ED Physical Exam - General Limitations: No Limitations General appearance: alert, in no apparent distress, anxious - Head Head exam: Present: atraumatic, normocephalic, normal inspection - Eye Eye exam: Present: normal appearance, PERRL - ENT ENT exam: Present: normal exam, normal orophraynx, mucous membranes moist - Neck Neck exam: Present: normal inspection, full ROM. Absent: tenderness, meningismus - Respiratory Respiratory exam: Present: normal lung sounds bilaterally, chest wall tenderness. Absent: respiratory distress, wheezes, rales, rhonchi, stridor, accessory muscle use, decreased breath sounds, prolonged expiratory - Cardiovascular Cardiovascular Exam: Present: regular rate, normal rhythm, normal heart sounds - GI/Abdominal GI/Abdominal exam: Present: soft. Absent: distended, tenderness, guarding, rebound, rigid, normal bowel sounds, diminished bowel sounds, hypoactive bowel sounds, organomegaly, mass, bruit, pulsatile mass, hernia - Extremities Exam Extremities exam: Present: normal inspection, full ROM, normal capillary refill - Back Exam Back exam: Present: normal inspection, full ROM. Absent: tenderness, CVA tenderness (R), CVA tenderness (L) - Neurological Exam Neurological exam: Present: alert, oriented X3, CN II-XII intact, normal gait - Skin Skin exam: Present: warm, intact, normal color ED Course Vital Signs 07/25/17 08:06 Temperature 98.3 F Pulse Rate 76 Respiratory 20 Rate Blood Pressure 120/72 O2 Sat by Pulse 98 Oximetry MAHSA score - Mahsa Score Age > 65: (0) No Aspirin use within the Past 7 Days: (0) No 3 or more CAD Risk Factors: (1) Yes 2 or more Angina events in past 24 hrs: (1) Yes Known CAD with more than 50% Stenosis: (0) No Elevated Cardiac Markers: (0) No ST Deviation Greater than 0.5mm: (0) No MAHSA Score: 2 ED Medical Decision Making - Lab Data Result diagrams: 07/25/17 09:07 07/25/17 09:07 Critical care attestation.: If time is entered above; I have spent that time in minutes in the direct care of this critically ill patient, excluding procedure time. ED Disposition Clinical Impression: Atypical chest pain, Acute bronchitis, Oral thrush Disposition: TO HOME OR SELFCARE Is pt being admited?: No Condition: Stable Instructions: Chest Pain (ED), Acute Bronchitis (ED), Costochondritis (ED), Oral Candidiasis (ED) Referrals: PRIMARY CARE,MD [Primary Care Provider] - 3-5 Days
== END 2017-07-25 11:44 | disposition home or self-care (01) ==
LOC: ED 08:01
DX: J20.9 Acute bronchitis, unspecified (principal); B37.0 Candidal stomatitis; R07.89 Other chest pain; I10 Essential (primary) hypertension; E11.9 Type 2 diabetes mellitus without complications; J45.909 Unspecified asthma, uncomplicated
CPT/HCPCS: 36415; 71046; 80048; 84484; 85025; 93005; 93010

== ENCOUNTER 2017-11-21 09:12 | Emergency (ER) | payer MEDICARE ==
[2017-11-21 09:20] VITALS: BP 130/84
[2017-11-21] MEDS ORDERED: DUONEB *Not for PRN Use IH ONE (10:50)
[2017-11-21] MEDS ORDERED: NORCO 10/325 PO ONE (10:51)
[2017-11-21] MEDS ORDERED: ZOFRAN ODT PO ONE (10:51)
[2017-11-21] MEDS ORDERED: DELTASONE PO ONE (10:51)
--- NOTE | 2017-11-21 10:54 | Emergency Department Report ---
ED General Adult HPI - General Chief complaint: Upper Respiratory Infection Stated complaint: WHEEZY/SOB Time Seen by Provider: 11/21/17 10:33 Source: patient Mode of arrival: Ambulatory Limitations: No Limitations - History of Present Illness Initial comments: Patient presents to the emergency department with a chief complaint of a cough and asthma attack 3 days. Patient states she is out of her rescue inhaler at home and her when necessary albuterol nebulizer treatment is not helping. She states the cough is productive in nature. Patient is also status post rotator cuff repair on October [id number] and has been going to physical therapy and now also complains of neck and shoulder pain on the left side which she attributes to overuse and physical therapy. Patient denies chest pain, abdominal pain, or headache. -: Gradual Associated Symptoms: denies other symptoms - Related Data Home Medications Medication Instructions Recorded Confirmed Last Taken Gabapentin [Neurontin] 300 mg PO Q8HR 03/02/15 12/25/16 11/18/16 Previous Rx's Medication Instructions Recorded Last Taken Type Loratadine [Claritin] 10 mg PO QDAY tablet 06/16/15 11/18/16 Rx Diazepam Tab [Valium] 2 mg PO TID PRN #10 tablet 11/18/16 Unknown Rx Meloxicam [Mobic] 7.5 mg PO BID #24 tablet 11/18/16 Unknown Rx hydrOXYzine HCL [Atarax] 25 mg PO Q6HR PRN #30 tablet 12/19/16 Unknown Rx Aspirin [Aspirin BABY CHEW TAB] 81 mg PO QDAY #30 tab.chew 12/28/16 Unknown Rx Budesoni/Formotero 160-4.5(Nf) 1 puff IH BID #1 inha 12/28/16 Unknown Rx [Symbicort 160-4.5 (Nf)] Esomeprazole Magnesium [NexIUM 22.3 mg PO DAILY #7 capsule.dr 12/28/16 Unknown Rx 24Hr] Furosemide [Lasix TAB] 20 mg PO DAILY@0600 #30 tablet 12/28/16 Unknown Rx Ipratropium/Albuterol Sulfate 1 ampul IH Q4HR #1 box 12/28/16 Unknown Rx [DUONEB *Not for PRN Use*] Montelukast [Singulair] 10 mg PO QHS #30 tablet 12/28/16 Unknown Rx predniSONE [Deltasone] 40 mg PO QDAY #20 tablet 12/28/16 Unknown Rx Azithromycin [Zithromax Z-MERARY] 250 mg PO DAILY #6 tablet 01/26/17 Unknown Rx Benzonatate [Tessalon Perle] 100 mg PO DAILY #15 capsule 01/26/17 Unknown Rx Ibuprofen [Motrin] 600 mg PO Q8H PRN #30 tablet 03/01/17 Unknown Rx ALBUTEROL Inhaler [ProAir HFA 2 puff IH QID PRN #1 inhalation 03/30/17 Unknown Rx Inhaler] ALBUTEROL NEB's [Proventil 0.083% 2.5 mg IH TID PRN #60 neb 03/30/17 Unknown Rx NEBS] predniSONE [Deltasone] 20 mg PO BID #6 tablet 03/30/17 Unknown Rx traMADol [Ultram 50 MG tab] 50 mg PO Q6HR PRN #8 tablet 03/30/17 Unknown Rx ALBUTEROL Inhaler [ProAir HFA 2 puff IH QID PRN #1 inhalation 05/27/17 Unknown Rx Inhaler] Azithromycin [Zithromax Z-MERARY] 250 mg PO QDAY #6 tablet 05/27/17 Unknown Rx Oseltamivir [Tamiflu] 75 mg PO BID #10 cap 05/27/17 Unknown Rx Phenylephrine/Dm/Acetaminop/GG 20 ml PO Q4HR PRN #180 liquid 05/27/17 Unknown Rx [Mucinex Sdcu-Jlt-Wwzbulurtl Lq] predniSONE [Deltasone] 20 mg PO QDAY #5 tab 05/27/17 Unknown Rx ALBUTEROL Inhaler [ProAir HFA 2 puff IH QID PRN #1 inhalation 07/25/17 Unknown Rx Inhaler] Ciprofloxacin HCl [Ciprofloxacin 500 mg PO Q12H #14 tab 07/25/17 Unknown Rx TAB] Nystas/Diphen/Xyl Visc/Mylanta 30 ml MM Q4H PRN #360 ml 07/25/17 Unknown Rx [Magic Mouthwash] Prednisone [predniSONE (Natasha) ER 40 mg PO QDAY #40 tablet.dr 07/25/17 Unknown Rx TAB] ALBUTEROL Inhaler [ProAir HFA 2 puff IH Q4-6H PRN #1 inha 11/21/17 Unknown Rx Inhaler] Azithromycin [Zithromax Z-MERARY] 0 mg PO DAILY #6 tab 11/21/17 Unknown Rx HYDROcodone/APAP 5-325 [[facility] 1 each PO Q6HR PRN #12 tablet 11/21/17 Unknown Rx 5/325] Prednisone 50 mg PO DAILY #5 tablet 11/21/17 Unknown Rx Allergies Allergy/AdvReac Type Severity Reaction Status Date / Time amoxicillin Allergy Unknown Verified 07/25/17 08:05 Penicillins Allergy Rash Verified 07/25/17 08:05 seafood Allergy Severe Anaphylaxis Uncoded 03/16/17 01:08 ED Review of Systems ROS: Stated complaint: WHEEZY/SOB Other details as noted in HPI Constitutional: denies: chills, fever Eyes: denies: eye pain, eye discharge, vision change ENT: denies: ear pain, throat pain Respiratory: cough. denies: shortness of breath, wheezing Cardiovascular: denies: chest pain, palpitations Endocrine: no symptoms reported Gastrointestinal: denies: abdominal pain, nausea, diarrhea Genitourinary: denies: urgency, dysuria, discharge Musculoskeletal: denies: back pain, joint swelling, arthralgia Skin: denies: rash, lesions Neurological: denies: headache, weakness, paresthesias Psychiatric: denies: anxiety, depression Hematological/Lymphatic: denies: easy bleeding, easy bruising ED Past Medical Hx - Past Medical History Previous Medical History?: Yes Hx Hypertension: Yes Hx Heart Attack/AMI: No Hx Congestive Heart Failure: Yes Hx Diabetes: Yes Hx Pulmonary Embolism: No Hx GERD: Yes Hx Liver Disease: No Hx Renal Disease: No Hx Sickle Cell Disease: No Hx Arthritis: Yes Hx Headaches / Migraines: No Hx Seizures: No Hx Kidney Stones: No Hx Psychiatric Treatment: Yes (Anxiety) Hx Asthma: Yes (has been intubated before for severe asthma) Hx Tuberculosis: No Hx HIV: No Additional medical history: Intubated x 8. heart murmur. osteoporosis. hearing loss in [place] - Surgical History Past Surgical History?: Yes Hx Coronary Stent: No Hx Open Heart Surgery: No Hx Pacemaker: No Hx Internal Defibrillator: No Hx Cholecystectomy: No Hx Appendectomy: No Hx Breast Surgery: No Additional Surgical History: cataracts, nasal surg, tubal ligation. bilateral foot. Left shoulder surgery - Social History Smoking Status: Never Smoker Substance Use Type: None - Medications Home Medications: Home Medications Medication Instructions Recorded Confirmed Last Taken Type Gabapentin [Neurontin] 300 mg PO Q8HR 03/02/15 12/25/16 11/18/16 History Loratadine [Claritin] 10 mg PO QDAY tablet 06/16/15 12/25/16 11/18/16 Rx Diazepam Tab [Valium] 2 mg PO TID PRN #10 tablet 11/18/16 12/25/16 Unknown Rx Meloxicam [Mobic] 7.5 mg PO BID #24 tablet 11/18/16 12/25/16 Unknown Rx hydrOXYzine HCL [Atarax] 25 mg PO Q6HR PRN #30 tablet 12/19/16 12/25/16 Unknown Rx Aspirin [Aspirin BABY CHEW TAB] 81 mg PO QDAY #30 tab.chew 12/28/16 Unknown Rx Budesoni/Formotero 160-4.5(Nf) 1 puff IH BID #1 inha 12/28/16 Unknown Rx [Symbicort 160-4.5 (Nf)] Esomeprazole Magnesium [NexIUM 22.3 mg PO DAILY #7 capsule. 12/28/16 Unknown Rx 24Hr] Furosemide [Lasix TAB] 20 mg PO DAILY@0600 #30 tablet 12/28/16 Unknown Rx Ipratropium/Albuterol Sulfate 1 ampul IH Q4HR #1 box 12/28/16 Unknown Rx [DUONEB *Not for PRN Use*] Montelukast [Singulair] 10 mg PO QHS #30 tablet 12/28/16 Unknown Rx predniSONE [Deltasone] 40 mg PO QDAY #20 tablet 12/28/16 Unknown Rx Azithromycin [Zithromax Z-MERARY] 250 mg PO DAILY #6 tablet 01/26/17 Unknown Rx Benzonatate [Tessalon Perle] 100 mg PO DAILY #15 capsule 01/26/17 Unknown Rx Ibuprofen [Motrin] 600 mg PO Q8H PRN #30 tablet 03/01/17 Unknown Rx ALBUTEROL Inhaler [ProAir HFA 2 puff IH QID PRN #1 inhalation 03/30/17 Unknown Rx Inhaler] ALBUTEROL NEB's [Proventil 0.083% 2.5 mg IH TID PRN #60 neb 03/30/17 Unknown Rx NEBS] predniSONE [Deltasone] 20 mg PO BID #6 tablet 03/30/17 Unknown Rx traMADol [Ultram 50 MG tab] 50 mg PO Q6HR PRN #8 tablet 03/30/17 Unknown Rx ALBUTEROL Inhaler [ProAir HFA 2 puff IH QID PRN #1 inhalation 05/27/17 Unknown Rx Inhaler] Azithromycin [Zithromax Z-MERARY] 250 mg PO QDAY #6 tablet 05/27/17 Unknown Rx Oseltamivir [Tamiflu] 75 mg PO BID #10 cap 05/27/17 Unknown Rx Phenylephrine/Dm/Acetaminop/GG 20 ml PO Q4HR PRN #180 liquid 05/27/17 Unknown Rx [Mucinex Matb-Fje-Xboiitcsmo Lq] predniSONE [Deltasone] 20 mg PO QDAY #5 tab 05/27/17 Unknown Rx ALBUTEROL Inhaler [ProAir HFA 2 puff IH QID PRN #1 inhalation 07/25/17 Unknown Rx Inhaler] Ciprofloxacin HCl [Ciprofloxacin 500 mg PO Q12H #14 tab 07/25/17 Unknown Rx TAB] Nystas/Diphen/Xyl Visc/Mylanta 30 ml MM Q4H PRN #360 ml 07/25/17 Unknown Rx [Magic Mouthwash] Prednisone [predniSONE ([place]) ER 40 mg PO QDAY #40 tablet.dr 07/25/17 Unknown Rx TAB] ALBUTEROL Inhaler [ProAir HFA 2 puff IH Q4-6H PRN #1 inha 11/21/17 Unknown Rx Inhaler] Azithromycin [Zithromax Z-MERARY] 0 mg PO DAILY #6 tab 11/21/17 Unknown Rx HYDROcodone/APAP 5-325 [[facility] 1 each PO Q6HR PRN #12 tablet 11/21/17 Unknown Rx 5/325] Prednisone 50 mg PO DAILY #5 tablet 11/21/17 Unknown Rx ED Physical Exam - General Limitations: No Limitations General appearance: alert, in no apparent distress - Head Head exam: Present: atraumatic, normocephalic - Eye Eye exam: Present: normal appearance - ENT ENT exam: Present: mucous membranes moist - Neck Neck exam: Present: normal inspection - Respiratory Respiratory exam: Present: normal lung sounds bilaterally, wheezes. Absent: respiratory distress, rales - Cardiovascular Cardiovascular Exam: Present: regular rate, normal rhythm. Absent: systolic murmur, diastolic murmur, rubs, gallop - GI/Abdominal GI/Abdominal exam: Present: soft, normal bowel sounds - Extremities Exam Extremities exam: Present: other (tender palpation of the left deltoid and trapezius muscle spasms felt in the trapezius muscle) - Back Exam Back exam: Present: normal inspection - Neurological Exam Neurological exam: Present: alert, oriented X3, CN II-XII intact, motor sensory deficit - Psychiatric Psychiatric exam: Present: normal affect, normal mood - Skin Skin exam: Present: warm, dry, intact, normal color. Absent: rash ED Course Vital Signs 11/21/17 09:14 Temperature 98.2 F Pulse Rate 82 Respiratory 22 Rate Blood Pressure 130/84 O2 Sat by Pulse 97 Oximetry ED Medical Decision Making - Medical Decision Making Discussed results with patient Critical care attestation.: If time is entered above; I have spent that time in minutes in the direct care of this critically ill patient, excluding procedure time. ED Disposition Clinical Impression: Bronchitis, Shoulder pain Disposition: TO HOME OR SELFCARE Is pt being admited?: No Does the pt Need Aspirin: No Condition: Stable Instructions: Acute Bronchitis (ED), Shoulder Sprain (ED), Chronic Bronchitis ( ED) Additional Instructions: Discussed results with patient Prescriptions: ALBUTEROL Inhaler [ProAir HFA Inhaler] 2 puff IH Q4-6H PRN #1 inha PRN Reason: Wheezing Azithromycin [Zithromax Z-MERARY] 0 mg PO DAILY #6 tab HYDROcodone/APAP 5-325 [[facility] 5/325] 1 each PO Q6HR PRN #12 tablet PRN Reason: Pain Prednisone 50 mg PO DAILY #5 tablet Referrals: [facility] [Outside] - 3-5 Days PRIMARY CARE, [Primary Care Provider] - 3-5 Days Time of Disposition: 13:05
--- NOTE | 2017-11-21 12:47 | XRay Report ---
Single view chest: Compared to 07/25/17. History: Cough. Findings: Normal cardiomediastinal silhouette. Trachea is midline. No consolidation, pneumothorax or pleural effusion. Impression: No acute cardiopulmonary findings.
== END 2017-11-21 13:26 | disposition home or self-care (01) ==
LOC: ED 09:12
DX: J40 Bronchitis, not specified as acute or chronic (principal); I11.0 Hypertensive heart disease with heart failure; E11.9 Type 2 diabetes mellitus without complications; K21.9 Gastro-esophageal reflux disease without esophagitis; M19.90 Unspecified osteoarthritis, unspecified site; F41.9 Anxiety disorder, unspecified; M25.512 Pain in left shoulder; M54.2 Cervicalgia; Z98.51 Tubal ligation status; Z79.82 Long term (current) use of aspirin; Z88.0 Allergy status to penicillin; Z88.1 Allergy status to other antibiotic agents; Z91.013 Allergy to seafood
CPT/HCPCS: 71045; 93005; 93010; 94640; 99283; J7512; Q0162

== ENCOUNTER 2017-12-08 13:08 | Outpatient (CLI) | payer MEDICARE ==
--- NOTE | 2017-12-08 17:56 | Magnetic Resonance Report ---
FINAL REPORT EXAM: MR UE JOINT LT WO CON HISTORY: ROTATOR CUFF REPAIR TECHNIQUE: Multiplanar MRI of the left shoulder. No contrast administered. PRIORS: None. FINDINGS: Postsurgical change, including apparent fixation screw or anchoring device in the humeral head and magnetic susceptibility artifacts scattered about the shoulder. Very mild thickening and some amorphous, intermediate signal intensity in the distal supraspinatus tendon near its insertion site possibly postsurgical. Remainder of rotator cuff tendons appear grossly intact. Glenoid labrum grossly unremarkable. Bicipital tendon is in normal location and has normal contour and signal intensity. Bone marrow signal intensity within normal limits. No bony Bankart or Hill-Sachs lesions. Mild AC joint arthrosis. Undersurface of the acromion appears flat. Acromiohumeral interval measures 5-6 mm. No significant glenohumeral joint effusion. IMPRESSION: 1. Postsurgical changes and findings which may represent postsurgical change/residual or mild tendinosis-tendinopathy in the distal supraspinatus tendon near its insertion site. No full-thickness rotator cuff tear or tendinous retraction evident. 2. Mild AC joint arthrosis.
== END 2017-12-08 13:09 | disposition home or self-care (01) ==
LOC: MRI 13:08
PROVIDERS: ATTEND Orthopaedic Surgery
DX: M19.012 Primary osteoarthritis, left shoulder (principal); I11.0 Hypertensive heart disease with heart failure; I50.9 Heart failure, unspecified; E11.9 Type 2 diabetes mellitus without complications; K21.9 Gastro-esophageal reflux disease without esophagitis; J45.901 Unspecified asthma with (acute) exacerbation; M19.90 Unspecified osteoarthritis, unspecified site; Z98.890 Other specified postprocedural states

== ENCOUNTER 2017-12-15 16:42 | Emergency (ER) | payer MEDICARE ==
[2017-12-15] MEDS ORDERED: DUONEB *Not for PRN Use IH ONE (17:01)
[2017-12-15 17:22] LABS: Basophils # (Auto) 0.1 K/mm3 (0.0-0.1); Eosinophils # (Auto) 0.4 K/mm3 (0.0-0.4); Eosinophils % (Auto) 6.2 % (0.0-4.3); Hematocrit 33.1 % (30.3-42.9); Hemoglobin 11.1 gm/dl (10.1-14.3); Lymphocytes % (Auto) 35.2 % (13.4-35.0); Mean Corpuscular HGB Conc 34 % (30-34); Mean Corpuscular Hemoglobin 29 pg (28-32); Mean Corpuscular Volume 85 fl (79-97); Monocytes # (Auto) 0.5 K/mm3 (0.0-0.8); Platelet Count 257 K/mm3 (140-440); Red Cell Distribution Width 14.7 % (13.2-15.2)
[2017-12-15 17:37] LABS: BUN/Creatinine Ratio 12; Blood Urea Nitrogen 12 mg/dL (7-17); Calcium 9.1 mg/dL (8.4-10.2); Hemolysis Index 4
--- NOTE | 2017-12-15 21:29 | XRay Report ---
FINAL REPORT EXAM: XR CHEST ROUTINE 2V HISTORY: Shortness of breath TECHNIQUE: PA and lateral views of the chest PRIORS: CXR 06/18/2017 FINDINGS: Lines, tubes, and devices: N/A Lungs and pleura: Trachea is normal in position. Lungs are clear of infiltrate, pleural effusion, vascular congestion, or pneumothorax. No change. Cardiomediastinal silhouette: Cardiac and mediastinal silhouettes are unremarkable. Other: Bony structures are intact. IMPRESSION: No acute cardiopulmonary process seen. No change.
[2017-12-15] MEDS ORDERED: ATROVENT IH ONE (22:30)
[2017-12-15] MEDS ORDERED: SOLU-Medrol IV ONE (22:30)
[2017-12-15] MEDS ORDERED: PROVENTIL IH ONE (22:30)
--- NOTE | 2017-12-15 23:07 | Emergency Department Report ---
HPI - General Chief Complaint: Dyspnea/Respdistress Time Seen by Provider: 12/15/17 22:08 - HPI HPI: 52-year-old [place] female presents to the emergency department with complaint of a one-day history of some wheezing, mixed dry and productive cough , chest tightness and discomfort. She denies any fever, nausea, vomiting or diaphoresis. The patient does have some pain in the left shoulder and towards the neck but does have a history of shoulder surgery about 2 months ago. She also has a past medical history of CHF, diabetes, GERD, hypertension. She has a history of asthma and has been intubated multiple times secondary to her severe asthma. No recent travel or sick contacts at home. She has a primary care physician but cannot currently remember their name and her sales promotion representative is Dr. Stokes. Patient used her nebulizer treatment at home without much relief. ED Past Medical Hx - Past Medical History Hx Hypertension: Yes Hx Heart Attack/AMI: No Hx Congestive Heart Failure: Yes Hx Diabetes: Yes Hx Pulmonary Embolism: No Hx GERD: Yes Hx Liver Disease: No Hx Renal Disease: No Hx Sickle Cell Disease: No Hx Arthritis: Yes Hx Headaches / Migraines: No Hx Seizures: No Hx Kidney Stones: No Hx Psychiatric Treatment: Yes (Anxiety) Hx Asthma: Yes (has been intubated before for severe asthma) Hx Tuberculosis: No Hx HIV: No Additional medical history: Intubated x 8. heart murmur. osteoporosis. hearing loss in [place] - Surgical History Hx Coronary Stent: No Hx Open Heart Surgery: No Hx Pacemaker: No Hx Internal Defibrillator: No Hx Cholecystectomy: No Hx Appendectomy: No Hx Breast Surgery: No Additional Surgical History: cataracts, nasal surg, tubal ligation. bilateral foot. Left shoulder surgery - Social History Smoking Status: Never Smoker Substance Use Type: None - Medications Home Medications: Home Medications Medication Instructions Recorded Confirmed Last Taken Type Gabapentin [Neurontin] 300 mg PO Q8HR 03/02/15 12/25/16 11/18/16 History Loratadine [Claritin] 10 mg PO QDAY tablet 06/16/15 12/25/16 11/18/16 Rx Meloxicam [Mobic] 7.5 mg PO BID #24 tablet 11/18/16 12/25/16 Unknown Rx diazePAM TAB [Valium] 2 mg PO TID PRN #10 tablet 11/18/16 12/25/16 Unknown Rx hydrOXYzine HCL [Atarax] 25 mg PO Q6HR PRN #30 tablet 12/19/16 12/25/16 Unknown Rx Aspirin [Aspirin BABY CHEW TAB] 81 mg PO QDAY #30 tab.chew 12/28/16 Unknown Rx Budesoni/Formotero 160-4.5(Nf) 1 puff IH BID #1 inha 12/28/16 Unknown Rx [Symbicort 160-4.5 (Nf)] Esomeprazole Magnesium [NexIUM 22.3 mg PO DAILY #7 capsule. 12/28/16 Unknown Rx 24Hr] Furosemide [Lasix TAB] 20 mg PO DAILY@0600 #30 tablet 12/28/16 Unknown Rx Ipratropium/Albuterol Sulfate 1 ampul IH Q4HR #1 box 12/28/16 Unknown Rx [DUONEB *Not for PRN Use*] Montelukast [Singulair] 10 mg PO QHS #30 tablet 12/28/16 Unknown Rx predniSONE [Deltasone] 40 mg PO QDAY #20 tablet 12/28/16 Unknown Rx Azithromycin [Zithromax Z-MERARY] 250 mg PO DAILY #6 tablet 01/26/17 Unknown Rx Benzonatate [Tessalon Perle] 100 mg PO DAILY #15 capsule 01/26/17 Unknown Rx Ibuprofen [Motrin] 600 mg PO Q8H PRN #30 tablet 03/01/17 Unknown Rx traMADol [Ultram 50 MG tab] 50 mg PO Q6HR PRN #8 tablet 03/30/17 Unknown Rx ALBUTEROL Inhaler (OR & NICU) 2 puff IH QID PRN #1 inhalation 05/27/17 Unknown Rx [ProAir HFA Inhaler] Azithromycin [Zithromax Z-MERARY] 250 mg PO QDAY #6 tablet 05/27/17 Unknown Rx Oseltamivir [Tamiflu] 75 mg PO BID #10 cap 05/27/17 Unknown Rx Phenylephrine/Dm/Acetaminop/GG 20 ml PO Q4HR PRN #180 liquid 05/27/17 Unknown Rx [Mucinex Wmfq-Qdv-Omnescpwve Lq] predniSONE [Deltasone] 20 mg PO QDAY #5 tab 05/27/17 Unknown Rx ALBUTEROL Inhaler (OR & NICU) 2 puff IH QID PRN #1 inhalation 07/25/17 Unknown Rx [ProAir HFA Inhaler] Ciprofloxacin HCl [Ciprofloxacin 500 mg PO Q12H #14 tab 07/25/17 Unknown Rx TAB] Nystas/Diphen/Xyl Visc/Mylanta 30 ml MM Q4H PRN #360 ml 07/25/17 Unknown Rx [Magic Mouthwash] Prednisone [predniSONE (Natasha) ER 40 mg PO QDAY #40 tablet. 07/25/17 Unknown Rx TAB] ALBUTEROL Inhaler (OR & NICU) 2 puff IH Q4-6H PRN #1 inha 11/21/17 Unknown Rx [ProAir HFA Inhaler] Azithromycin [Zithromax Z-MERARY] 0 mg PO DAILY #6 tab 11/21/17 Unknown Rx predniSONE [Prednisone] 50 mg PO DAILY #5 tablet 11/21/17 Unknown Rx ALBUTEROL Inhaler (OR & NICU) 2 puff IH QID PRN #1 inhalation 12/16/17 Unknown Rx [ProAir HFA Inhaler] ALBUTEROL NEB's [Proventil 0.083% 2.5 mg IH TID PRN #1 box 12/16/17 Unknown Rx NEBS] HYDROcodone/APAP 5-325 [Huguenot 1 each PO Q6HR PRN #10 tablet 12/16/17 Unknown Rx 5-325 mg TAB] predniSONE [Deltasone] 20 mg PO BID #10 tablet 12/16/17 Unknown Rx ED Review of Systems ROS: Stated complaint: ASTHMA Other details as noted in HPI Comment: All other systems reviewed and negative Constitutional: denies: chills, fever Eyes: denies: eye pain, eye discharge, vision change ENT: denies: ear pain, throat pain Respiratory: cough, shortness of breath, wheezing Cardiovascular: chest pain. denies: palpitations Gastrointestinal: denies: abdominal pain, nausea, diarrhea Genitourinary: denies: urgency, dysuria, discharge Musculoskeletal: arthralgia, myalgia Skin: denies: rash, lesions Neurological: denies: headache, weakness, paresthesias Physical Exam - Physical Exam Vital Signs: Vital Signs 12/15/17 16:58 Temperature 98.8 F Pulse Rate 87 Respiratory 16 Rate Blood Pressure 147/89 O2 Sat by Pulse 96 Oximetry Physical Exam: GENERAL: The patient is well-developed well-nourished. HENT: Normocephalic. Atraumatic. Patient has moist mucous membranes. EYES: Extraocular motions are intact. Pupils equal reactive to light bilaterally. No nystagmus. NECK: Supple. Trachea is midline. CHEST/LUNGS: Mild wheezing throughout the chest. No tachypnea or accessory muscle use. There is no respiratory distress noted. HEART/CARDIOVASCULAR: Regular. There is no tachycardia. There is no murmur. ABDOMEN: Abdomen is soft, nontender. Patient has normal bowel sounds. There is no abdominal distention. SKIN: Skin is warm and dry.. NEURO: The patient is awake, alert, and oriented. The patient is cooperative. The patient has no focal neurologic deficits. The patient has normal speech. MUSCULOSKELETAL: Patient has some tenderness along the left posterior shoulder and trapezius muscle. There is no limitation range of motion. ED Course Vital Signs 12/15/17 16:58 Temperature 98.8 F Pulse Rate 87 Respiratory 16 Rate Blood Pressure 147/89 O2 Sat by Pulse 96 Oximetry ED Medical Decision Making - Lab Data Result diagrams: 12/15/17 17:03 12/15/17 17:03 - EKG Data -: EKG Interpreted by Ne EKG shows normal: sinus rhythm (PVCs), axis, intervals, QRS complexes, ST-T waves Rate: normal - EKG Data When compared to previous EKG there are: no significant change Interpretation: normal EKG, unchanged when compared t (11/21/17) - Radiology Data Radiology results: image reviewed interpreted by me: Chest x-ray does not show any acute process. There are no pleural effusions, obvious pneumonia and there is no pneumothorax. - Medical Decision Making Patient has been dealing with some shortness of breath, wheezing, chest tightness. She has a history of significant asthma. On examination she has some mild wheezing but does not appear in any respiratory distress. EKG does not show any signs of ST elevation [place], ischemia or dysrhythmia. Chest x-ray does not show any pneumonia, pleural effusions, pneumothorax, focal consolidation or any other acute process. Labs were unremarkable including negative troponins 2 and a negative d-dimer. Patient thinks that most of her discomfort is coming from her recently surgically repaired left shoulder. At the time of discharge, the patient has absolutely no chest pain. She says that she had a negative stress test a few months ago in her sales promotion representative's office. Patient is feeling improved and asking for discharge home. She has been given a refill of her albuterol, a five-day course of steroids, something for discomfort. She's been instructed to follow up with her primary care physician and her sales promotion representative but to return to the emergency Department with any worsening of her symptoms or any acute distress. - Differential Diagnosis asthma, bronchitis, IN, PE, pneumonia Critical Care Time: No Critical care attestation.: If time is entered above; I have spent that time in minutes in the direct care of this critically ill patient, excluding procedure time. ED Disposition Clinical Impression: Bronchospasm Asthma exacerbation Qualifiers: Asthma severity: unspecified severity Asthma persistence: unspecified Qualified Code(s): J45.901 - Unspecified asthma with (acute) exacerbation Left shoulder pain Qualifiers: Chronicity: acute Qualified Code(s): M25.512 - Pain in left shoulder Disposition: DC-01 TO HOME OR SELFCARE Is pt being admited?: No Condition: Stable Instructions: Asthma (ED), Bronchospasm (ED) Additional Instructions: Please follow-up with your primary care physician in the next few days. Please follow-up with your sales promotion representative. Return to the emergency department with any return of her chest pain, worsening of your symptoms, or with any acute distress. You have been prescribed a medication that is sedating and therefore should not be taken prior to driving, working, and responsible for children and in no way should be mixed with alcohol of any quantity. Prescriptions: ALBUTEROL Inhaler (OR & NICU) [ProAir HFA Inhaler] 2 puff IH QID PRN #1 inhalation PRN Reason: Shortness Of Breath ALBUTEROL NEB's [Proventil 0.083% NEBS] 2.5 mg IH TID PRN #1 box PRN Reason: Wheezing HYDROcodone/APAP 5-325 [Huguenot 5-325 mg TAB] 1 each PO Q6HR PRN #10 tablet PRN Reason: Pain predniSONE [Deltasone] 20 mg PO BID #10 tablet Referrals: PRIMARY CARE, [Primary Care Provider] - SARAH MONROY MD [Staff Physician] - [facility] Time of Disposition: 02:37
[2017-12-15] MEDS ORDERED: MORPHINE IV ONE (23:50)
[2017-12-16 02:50] VITALS: BP 112/59
== END 2017-12-16 02:49 | disposition home or self-care (01) ==
LOC: ED 16:42
DX: J45.901 Unspecified asthma with (acute) exacerbation (principal); M25.512 Pain in left shoulder; I10 Essential (primary) hypertension; I50.9 Heart failure, unspecified; E11.9 Type 2 diabetes mellitus without complications; K21.9 Gastro-esophageal reflux disease without esophagitis; M19.90 Unspecified osteoarthritis, unspecified site; F41.9 Anxiety disorder, unspecified; M81.0 Age-related osteoporosis without current pathological fracture; Z98.51 Tubal ligation status
CPT/HCPCS: 36415; 71046; 80048; 83880; 84484; 85025; 85379; 93005; 93010; 96374; 96375; 99284; J2270; J2930

== ENCOUNTER 2019-03-28 22:48 | Observation (INO) | payer MEDICARE ==
[2019-03-28] MEDS ORDERED: NITROGLYCERIN 0.4 MG TAB SUBL SL ONE (23:48)
[2019-03-29 01:14] LABS: Basophils % (Auto) 0.9 % (0.0-1.8); Eosinophils # (Auto) 0.2 K/mm3 (0.0-0.4); Eosinophils % (Auto) 3.5 % (0.0-4.3); Hematocrit 34.2 % (30.3-42.9); Hemoglobin 11.3 gm/dl (10.1-14.3); Lymphocytes # (Auto) 1.6 K/mm3 (1.2-5.4); Lymphocytes % (Auto) 34.8 % (13.4-35.0); Mean Corpuscular HGB Conc 33 % (30-34); Mean Corpuscular Volume 85 fl (79-97); Monocytes # (Auto) 0.5 K/mm3 (0.0-0.8); Monocytes % (Auto) 10.8 % (0.0-7.3); Platelet Count 222 K/mm3 (140-440); Red Cell Distribution Width 15.5 % (13.2-15.2)
--- NOTE | 2019-03-29 01:14 | Vascular Lab Report ---
DUPLEX DOPPLER LOWER EXTREMITY VEINS, BILATERAL INDICATION: Bilateral leg pain. History of recent surgery. TECHNIQUE: Duplex doppler imaging was performed through the veins of both lower extremities using venous phyllis jeanie and other maneuvers. COMPARISON: No relevant prior imaging study available. FINDINGS: Right Common Femoral vein: Negative. Right Superficial Femoral vein: Negative. Right Popliteal vein: Negative. Right Calf veins: Negative. Left Common Femoral vein: Negative. Left Superficial Femoral vein: Negative. Left Popliteal vein: Negative. Left Calf veins: Negative. Additional findings: None. IMPRESSION: 1. No sonographic evidence for DVT in either lower extremity. Signer Name: Luis Eduardo Hall MD Signed: 03/29/2019 1:10 AM Workstation Name: [id number]
[2019-03-29 01:30] LABS: BUN/Creatinine Ratio 11; Blood Urea Nitrogen 10 mg/dL (7-17); Calcium 9.2 mg/dL (8.4-10.2); Hemolysis Index 2
[2019-03-29 01:36] LABS: INR 1.36 (0.87-1.13)
--- NOTE | 2019-03-29 01:36 | XRay Report ---
CHEST 1 VIEW 03/29/2019 1:07 AM INDICATION / CLINICAL INFORMATION: Chest pain. COMPARISON: 2 views of the chest from 08/31/2018. FINDINGS: SUPPORT DEVICES: None. HEART / MEDIASTINUM: No significant abnormality. LUNGS / PLEURA: No significant pulmonary or pleural abnormality. No pneumothorax. ADDITIONAL FINDINGS: No significant additional findings. IMPRESSION: 1. No acute abnormality of the chest. Signer Name: Luis Eduardo Hall MD Signed: 03/29/2019 1:31 AM Workstation Name: [id number]
[2019-03-29 01:37] LABS: Partial Thromboplastin Time 32.1 Sec. (24.2-36.6)
--- NOTE | 2019-03-29 02:38 | Emergency Department Report ---
ED Chest Pain HPI - General Chief Complaint: Dyspnea/Respdistress Stated Complaint: SOB Time Seen by Provider: 03/28/19 23:42 Source: patient Mode of arrival: Stretcher Limitations: No Limitations - History of Present Illness Initial Comments: Patient is a 53-year-old asthmatic female who is presenting with chest pain. Patient states that she has a sharp continuous pain in the left chest with radiation to the left arm. This is associated with shortness of breath. The patient states this worsened over the last day. Patient was given aspirin nitro glycerin in route which did help with the discomfort. Patient states she has a history of congestive heart failure diabetes hypertension and asthma. Patient states she does not believe this is her asthma. She has no wheezing or cough. Patient states she also has some bilateral lower extremity pain that she states is aching throbbing pain. She denies any swelling. Patient has been poorly compliant with her Lasix secondary to running out of her medication. Severity scale (0 -10): 6 - Related Data Home Medications Medication Instructions Recorded Confirmed Last Taken Gabapentin 300 mg PO Q8HR 03/02/15 12/25/16 11/18/16 Previous Rx's Medication Instructions Recorded Last Taken Type Loratadine (Nf) [Claritin (Nf)] 10 mg PO QDAY tablet 06/16/15 11/18/16 Rx Meloxicam [Mobic] 7.5 mg PO BID #24 tablet 11/18/16 Unknown Rx diazePAM TAB [Valium] 2 mg PO TID PRN #10 tablet 11/18/16 Unknown Rx hydrOXYzine HCL [Atarax] 25 mg PO Q6HR PRN #30 tablet 12/19/16 Unknown Rx Aspirin [Aspirin BABY CHEW TAB] 81 mg PO QDAY #30 tab.chew 12/28/16 Unknown Rx Budesoni/Formotero 160-4.5(Nf) 1 puff IH BID #1 inha 12/28/16 Unknown Rx [Symbicort 160-4.5 (Nf)] Esomeprazole Magnesium [NexIUM 22.3 mg PO DAILY #7 capsule.dr 12/28/16 Unknown Rx 24Hr] Furosemide [Lasix TAB] 20 mg PO DAILY@0600 #30 tablet 12/28/16 Unknown Rx Ipratropium/Albuterol Sulfate 1 ampul IH Q4HR #1 box 12/28/16 Unknown Rx [DUONEB *Not for PRN Use*] Montelukast [Singulair] 10 mg PO QHS #30 tablet 12/28/16 Unknown Rx predniSONE [Deltasone] 40 mg PO QDAY #20 tablet 12/28/16 Unknown Rx Azithromycin [Zithromax Z-MERARY] 250 mg PO DAILY #6 tablet 01/26/17 Unknown Rx Benzonatate [Tessalon Perle] 100 mg PO DAILY #15 capsule 01/26/17 Unknown Rx Ibuprofen [Motrin] 600 mg PO Q8H PRN #30 tablet 03/01/17 Unknown Rx traMADoL [Ultram 50 MG tab] 50 mg PO Q6HR PRN #8 tablet 03/30/17 Unknown Rx ALBUTEROL Inhaler (OR & NICU) 2 puff IH QID PRN #1 inhalation 05/27/17 Unknown Rx [ProAir HFA Inhaler] Azithromycin [Zithromax Z-MERARY] 250 mg PO QDAY #6 tablet 05/27/17 Unknown Rx Oseltamivir [Tamiflu] 75 mg PO BID #10 cap 05/27/17 Unknown Rx Phenylephrine/Dm/Acetaminop/GG 20 ml PO Q4HR PRN #180 liquid 05/27/17 Unknown Rx [Mucinex Ydgh-Pza-Vpuvoummsu Lq] predniSONE [Deltasone] 20 mg PO QDAY #5 tab 05/27/17 Unknown Rx ALBUTEROL Inhaler (OR & NICU) 2 puff IH QID PRN #1 inhalation 07/25/17 Unknown Rx [ProAir HFA Inhaler] Ciprofloxacin HCl [Ciprofloxacin 500 mg PO Q12H #14 tab 07/25/17 Unknown Rx TAB] Nystas/Diphen/Xyl Visc/Mylanta 30 ml MM Q4H PRN #360 ml 07/25/17 Unknown Rx [Magic Mouthwash] Prednisone [predniSONE (Natasha) ER 40 mg PO QDAY #40 tablet.dr 07/25/17 Unknown Rx TAB] ALBUTEROL Inhaler (OR & NICU) 2 puff IH Q4-6H PRN #1 inha 11/21/17 Unknown Rx [ProAir HFA Inhaler] Azithromycin [Zithromax Z-MERARY] 0 mg PO DAILY #6 tab 11/21/17 Unknown Rx predniSONE [Prednisone] 50 mg PO DAILY #5 tablet 11/21/17 Unknown Rx ALBUTEROL Inhaler (OR & NICU) 2 puff IH QID PRN #1 inhalation 12/16/17 Unknown Rx [ProAir HFA Inhaler] ALBUTEROL NEB's [Proventil 0.083% 2.5 mg IH TID PRN #1 box 12/16/17 Unknown Rx NEBS] HYDROcodone/APAP 5-325 [[place] 1 each PO Q6HR PRN #10 tablet 12/16/17 Unknown Rx 5-325 mg TAB] predniSONE [Deltasone] 20 mg PO BID #10 tablet 12/16/17 Unknown Rx ALBUTEROL Inhaler (OR & NICU) 2 puff IH QID PRN #1 inhalation 02/10/18 Unknown Rx [Proair] Albuterol Sulfate [Albuterol 0.63% 0.63 mg IH TID PRN #90 ml 02/10/18 Unknown Rx NEBS] Fluticasone/Salmeterol [Advair 1 each IH BID #1 blst.w.dev 02/10/18 Unknown Rx 500-50 Diskus] Prednisone [predniSONE 10 mg 10 mg PO .TAPER #1 tab.ds.pk 02/10/18 Unknown Rx (6-Day Pack, 21 Tabs)] ALBUTEROL Inhaler(NF) [VENTOLIN 1 puff IH Q4HR PRN #1 inha 08/22/18 Unknown Rx Inhaler(NF)] predniSONE [Deltasone] 50 mg PO QDAY #5 tab 08/22/18 Unknown Rx Allergies Allergy/AdvReac Type Severity Reaction Status Date / Time amoxicillin Allergy Anaphylaxis Verified 03/29/19 00:50 Penicillins Allergy Rash Verified 07/25/17 08:05 seafood Allergy Severe Anaphylaxis Uncoded 03/16/17 01:08 Heart Score - HEART Score History: Moderately suspicious EKG: Non-specific Age: 45-65 Risk factors: > 3 risk factors or hx of atherosclerotic disease Troponin: < normal limit HEART Score: 5 ED Review of Systems ROS: Stated complaint: SOB Other details as noted in HPI Comment: All other systems reviewed and negative ED Past Medical Hx - Past Medical History Previous Medical History?: Yes Hx Hypertension: Yes Hx Heart Attack/AMI: No Hx Congestive Heart Failure: Yes Hx Diabetes: Yes Hx Pulmonary Embolism: No Hx GERD: Yes Hx Liver Disease: No Hx Renal Disease: No Hx Sickle Cell Disease: No Hx Arthritis: Yes Hx Headaches / Migraines: No Hx Seizures: No Hx Kidney Stones: No Hx Psychiatric Treatment: Yes (Anxiety) Hx Asthma: Yes (has been intubated before for severe asthma) Hx Tuberculosis: No Hx HIV: No Additional medical history: Intubated x 8. heart murmur. osteoporosis. hearing loss in [place] - Surgical History Past Surgical History?: Yes Hx Coronary Stent: No Hx Open Heart Surgery: No Hx Pacemaker: No Hx Internal Defibrillator: No Hx Cholecystectomy: No Hx Appendectomy: No Hx Breast Surgery: No Additional Surgical History: cataracts, nasal surg, tubal ligation. bilateral foot. Left shoulder surgery - Social History Smoking Status: Never Smoker Substance Use Type: None - Medications Home Medications: Home Medications Medication Instructions Recorded Confirmed Last Taken Type Gabapentin 300 mg PO Q8HR 03/02/15 12/25/16 11/18/16 History Loratadine (Nf) [Claritin (Nf)] 10 mg PO QDAY tablet 06/16/15 12/25/16 11/18/16 Rx Meloxicam [Mobic] 7.5 mg PO BID #24 tablet 11/18/16 12/25/16 Unknown Rx diazePAM TAB [Valium] 2 mg PO TID PRN #10 tablet 11/18/16 12/25/16 Unknown Rx hydrOXYzine HCL [Atarax] 25 mg PO Q6HR PRN #30 tablet 12/19/16 12/25/16 Unknown Rx Aspirin [Aspirin BABY CHEW TAB] 81 mg PO QDAY #30 tab.chew 12/28/16 Unknown Rx Budesoni/Formotero 160-4.5(Nf) 1 puff IH BID #1 inha 12/28/16 Unknown Rx [Symbicort 160-4.5 (Nf)] Esomeprazole Magnesium [NexIUM 22.3 mg PO DAILY #7 capsule.dr 12/28/16 Unknown Rx 24Hr] Furosemide [Lasix TAB] 20 mg PO DAILY@0600 #30 tablet 12/28/16 Unknown Rx Ipratropium/Albuterol Sulfate 1 ampul IH Q4HR #1 box 12/28/16 Unknown Rx [DUONEB *Not for PRN Use*] Montelukast [Singulair] 10 mg PO QHS #30 tablet 12/28/16 Unknown Rx predniSONE [Deltasone] 40 mg PO QDAY #20 tablet 12/28/16 Unknown Rx Azithromycin [Zithromax Z-MERARY] 250 mg PO DAILY #6 tablet 01/26/17 Unknown Rx Benzonatate [Tessalon Perle] 100 mg PO DAILY #15 capsule 01/26/17 Unknown Rx Ibuprofen [Motrin] 600 mg PO Q8H PRN #30 tablet 03/01/17 Unknown Rx traMADoL [Ultram 50 MG tab] 50 mg PO Q6HR PRN #8 tablet 03/30/17 Unknown Rx ALBUTEROL Inhaler (OR & NICU) 2 puff IH QID PRN #1 inhalation 05/27/17 Unknown Rx [ProAir HFA Inhaler] Azithromycin [Zithromax Z-MERARY] 250 mg PO QDAY #6 tablet 05/27/17 Unknown Rx Oseltamivir [Tamiflu] 75 mg PO BID #10 cap 05/27/17 Unknown Rx Phenylephrine/Dm/Acetaminop/GG 20 ml PO Q4HR PRN #180 liquid 05/27/17 Unknown Rx [Mucinex Hktt-Rzt-Mrnzkbzbnu Lq] predniSONE [Deltasone] 20 mg PO QDAY #5 tab 05/27/17 Unknown Rx ALBUTEROL Inhaler (OR & NICU) 2 puff IH QID PRN #1 inhalation 07/25/17 Unknown Rx [ProAir HFA Inhaler] Ciprofloxacin HCl [Ciprofloxacin 500 mg PO Q12H #14 tab 07/25/17 Unknown Rx TAB] Nystas/Diphen/Xyl Visc/Mylanta 30 ml MM Q4H PRN #360 ml 07/25/17 Unknown Rx [Magic Mouthwash] Prednisone [predniSONE (Natasha) ER 40 mg PO QDAY #40 tablet.dr 07/25/17 Unknown Rx TAB] ALBUTEROL Inhaler (OR & NICU) 2 puff IH Q4-6H PRN #1 inha 11/21/17 Unknown Rx [ProAir HFA Inhaler] Azithromycin [Zithromax Z-MERARY] 0 mg PO DAILY #6 tab 11/21/17 Unknown Rx predniSONE [Prednisone] 50 mg PO DAILY #5 tablet 11/21/17 Unknown Rx ALBUTEROL Inhaler (OR & NICU) 2 puff IH QID PRN #1 inhalation 12/16/17 Unknown Rx [ProAir HFA Inhaler] ALBUTEROL NEB's [Proventil 0.083% 2.5 mg IH TID PRN #1 box 12/16/17 Unknown Rx NEBS] HYDROcodone/APAP 5-325 [[place]um[place] 1 each PO Q6HR PRN #10 tablet 12/16/17 Unknown Rx 5-325 mg TAB] predniSONE [Deltasone] 20 mg PO BID #10 tablet 12/16/17 Unknown Rx ALBUTEROL Inhaler (OR & NICU) 2 puff IH QID PRN #1 inhalation 02/10/18 Unknown Rx [Proair] Albuterol Sulfate [Albuterol 0.63% 0.63 mg IH TID PRN #90 ml 02/10/18 Unknown Rx NEBS] Fluticasone/Salmeterol [Advair 1 each IH BID #1 blst.w.dev 02/10/18 Unknown Rx 500-50 Diskus] Prednisone [predniSONE 10 mg 10 mg PO .TAPER #1 tab.ds.pk 02/10/18 Unknown Rx (6-Day Pack, 21 Tabs)] ALBUTEROL Inhaler(NF) [VENTOLIN 1 puff IH Q4HR PRN #1 inha 08/22/18 Unknown Rx Inhaler(NF)] predniSONE [Deltasone] 50 mg PO QDAY #5 tab 08/22/18 Unknown Rx ED Physical Exam - General Limitations: No Limitations General appearance: alert, in no apparent distress - Head Head exam: Present: atraumatic, normocephalic - Eye Eye exam: Present: normal appearance, PERRL, EOMI - ENT ENT exam: Present: mucous membranes moist - Neck Neck exam: Present: normal inspection - Respiratory Respiratory exam: Present: normal lung sounds bilaterally. Absent: respiratory distress, wheezes, rales, rhonchi - Cardiovascular Cardiovascular Exam: Present: regular rate, normal rhythm, normal heart sounds. Absent: systolic murmur, diastolic murmur, rubs, gallop - GI/Abdominal GI/Abdominal exam: Present: soft, normal bowel sounds. Absent: distended, tenderness, guarding, rebound - Extremities Exam Extremities exam: Present: normal inspection - Back Exam Back exam: Present: normal inspection - Neurological Exam Neurological exam: Present: alert, oriented X3 - Psychiatric Psychiatric exam: Present: normal affect, normal mood - Skin Skin exam: Present: warm, dry, intact, normal color. Absent: rash ED Course Vital Signs 12/13/19 12/13/19 12/13/19 00:51 00:59 01:20 Temperature 98.3 F Pulse Rate 68 66 Respiratory 22 22 Rate Blood Pressure 131/78 Blood Pressure 121/78 [Left] O2 Sat by Pulse 100 100 Oximetry CHRIS score - Chris Score Age > 65: (0) No Aspirin use within the Past 7 Days: (0) No 3 or more CAD Risk Factors: (1) Yes 2 or more Angina events in past 24 hrs: (1) Yes Known CAD with more than 50% Stenosis: (0) No Elevated Cardiac Markers: (0) No ST Deviation Greater than 0.5mm: (0) No CHRIS Score: 2 ED Medical Decision Making - Lab Data Result diagrams: 03/29/19 00:48 03/29/19 00:48 Lab Results 03/29/19 03/29/19 03/29/19 Range/Units 00:48 00:48 00:48 WBC 4.6 (4.5-11.0) K/mm3 RBC 4.00 (3.65-5.03) M/mm3 Hgb 11.3 (10.1-14.3) gm/dl Hct 34.2 (30.3-42.9) % MCV 85 (79-97) fl MCH 28 (28-32) pg MCHC 33 (30-34) % RDW 15.5 H (13.2-15.2) % Plt Count 222 (140-440) K/mm3 Lymph % (Auto) 34.8 (13.4-35.0) % [place] % (Auto) 10.8 H (0.0-7.3) % Eos % (Auto) 3.5 (0.0-4.3) % Baso % (Auto) 0.9 (0.0-1.8) % Lymph # 1.6 (1.2-5.4) K/mm3 [place] # 0.5 (0.0-0.8) K/mm3 Eos # 0.2 (0.0-0.4) K/mm3 Baso # 0.0 (0.0-0.1) K/mm3 Seg Neutrophils % 50.0 (40.0-70.0) % Seg Neutrophils # 2.3 (1.8-7.7) K/mm3 PT 17.0 H (12.2-14.9) Sec. INR 1.36 H (0.87-1.13) APTT 32.1 (24.2-36.6) Sec. D-Dimer 296.30 H (0-234) ng/mlDDU Sodium 141 (137-145) mmol/L Potassium 4.3 (3.6-5.0) mmol/L Chloride 106.9 (98-107) mmol/L Carbon Dioxide 24 (22-30) mmol/L Anion Gap 14 mmol/L BUN 10 (7-17) mg/dL Creatinine 0.9 (0.7-1.2) mg/dL Estimated GFR > 60 ml/min BUN/Creatinine Ratio 11 % Glucose 98 (65-100) mg/dL Calcium 9.2 (8.4-10.2) mg/dL Troponin T (0.00-0.029) ng/mL NT-Pro-B Natriuret Pep (0-900) pg/mL 03/29/19 03/29/19 Range/Units 00:48 00:48 WBC (4.5-11.0) K/mm3 RBC (3.65-5.03) M/mm3 Hgb (10.1-14.3) gm/dl Hct (30.3-42.9) % MCV (79-97) fl MCH (28-32) pg MCHC (30-34) % RDW (13.2-15.2) % Plt Count (140-440) K/mm3 Lymph % (Auto) (13.4-35.0) % [place] % (Auto) (0.0-7.3) % Eos % (Auto) (0.0-4.3) % Baso % (Auto) (0.0-1.8) % Lymph # (1.2-5.4) K/mm3 [place] # (0.0-0.8) K/mm3 Eos # (0.0-0.4) K/mm3 Baso # (0.0-0.1) K/mm3 Seg Neutrophils % (40.0-70.0) % Seg Neutrophils # (1.8-7.7) K/mm3 PT (12.2-14.9) Sec. INR (0.87-1.13) APTT (24.2-36.6) Sec. D-Dimer (0-234) ng/mlDDU Sodium (137-145) mmol/L Potassium (3.6-5.0) mmol/L Chloride (98-107) mmol/L Carbon Dioxide (22-30) mmol/L Anion Gap mmol/L BUN (7-17) mg/dL Creatinine (0.7-1.2) mg/dL Estimated GFR ml/min BUN/Creatinine Ratio % Glucose (65-100) mg/dL Calcium (8.4-10.2) mg/dL Troponin T < 0.010 (0.00-0.029) ng/mL NT-Pro-B Natriuret Pep 88.83 (0-900) pg/mL - EKG Data -: EKG Interpreted by N[place] EKG shows normal: sinus rhythm, axis, intervals (6 for prolonged MO interval), QRS complexes, ST-T waves Rate: normal - EKG Data Interpretation: normal EKG - Radiology Data DUPLEX DOPPLER LOWER EXTREMITY VEINS, BILATERAL INDICATION: Bilateral leg pain. History of recent surgery. TECHNIQUE: Duplex doppler imaging was performed through the veins of both lower extremities using venous compression and other maneuvers. COMPARISON: No relevant prior imaging study available. FINDINGS: Right Common Femoral vein: Negative. Right Superficial Femoral vein: Negative. Right Popliteal vein: Negative. Right Calf veins: Negative. Left Common Femoral vein: Negative. Left Superficial Femoral vein: Negative. Left Popliteal vein: Negative. Left Calf veins: Negative. Additional findings: None. IMPRESSION: 1. No sonographic evidence for DVT in either lower extremity. Signer Name: Luis Eduardo Hall MD Signed: 03/29/2019 1:10 AM Workstation Name: [id number] Transcribed By: [place] Dictated By: Luis Eduardo Hall MD Electronically Authenticated By: Luis Eduardo Hall MD Signed Date/Time: 03/29/19 0110 CHEST 1 VIEW 03/29/2019 1:07 AM INDICATION / CLINICAL INFORMATION: Chest pain. COMPARISON: 2 views of the chest from 08/31/2018. FINDINGS: SUPPORT DEVICES: None. HEART / MEDIASTINUM: No significant abnormality. LUNGS / PLEURA: No significant pulmonary or pleural abnormality. No pneumothorax. ADDITIONAL FINDINGS: No significant additional findings. IMPRESSION: 1. No acute abnormality of the chest. Signer Name: Luis Eduardo Hall MD Signed: 03/29/2019 1:31 AM Workstation Name: [email or web address] - Medical Decision Making Patient is a 77-iyfw-uln-Malagasy female with past medical history of hypertension diabetes and congestive heart failure who is presenting with shortness of breath and lower extremity pain. WAS done to rule out DVT. Ultrasounds were negative for deep vein thrombosis at this time. First troponin was negative. Patient does have some risk factors and her heart scores 5. Patient to be admitted for observation at this time. Critical care attestation.: If time is entered above; I have spent that time in minutes in the direct care of this critically ill patient, excluding procedure time. ED Disposition Clinical Impression: Chest pain Disposition: DC-09 OP ADMIT IP TO THIS HOSP Is pt being admited?: Yes Does the pt Need Aspirin: No Condition: Stable Instructions: Chest Pain (ED) Time of Disposition: 02:38
[2019-03-29 05:24] VITALS: BP 118/72
[2019-03-29] MEDS ORDERED: ONDANSETRON 4 MG/2 ML INJ IV PRN (09:26)
[2019-03-29] MEDS ORDERED: ACETAMINOPHEN 325 MG TAB PO PRN (09:26)
[2019-03-29] MEDS ORDERED: ENOXAPARIN 40 MG/0.4 ML INJ SUB-Q SCH (10:00)
--- NOTE | 2019-03-29 10:28 | Consultation ---
History of Present Illness Consult date: 03/29/19 Consult reason: chest pain History of present illness: This is a 53-year old woman with a history of chronic asthma, who presents with chest pain and shortness of breath. Chest pain is poorly characterized, nonexertional chest pain under her left breast. Chest x-ray is negative. Cardiac isoenzymes are normal and her ECG is benign. Cardiac consultation has been requested. There is no prior cardiac history. In fact, she had a cardiac catheterization 2 years ago that showed normal coronaries, ejection fraction 20%. An echocardiogram during the same admission, reported an ejection fraction 50-55%. In 2018 a re-echo showed an ejection fraction 50% which indicates likely contrast induced LV depression at the time of the cardiac cath. Medications and Allergies Allergies Allergy/AdvReac Type Severity Reaction Status Date / Time amoxicillin Allergy Anaphylaxis Verified 03/29/19 00:50 Penicillins Allergy Rash Verified 07/25/17 08:05 seafood Allergy Severe Anaphylaxis Uncoded 03/16/17 01:08 Home Medications Medication Instructions Recorded Confirmed Last Taken Type Gabapentin 300 mg PO Q8HR 03/02/15 03/29/19 11/18/16 History Meloxicam [Mobic] 7.5 mg PO BID #24 tablet 11/18/16 03/29/19 Unknown Rx diazePAM TAB [Valium] 2 mg PO TID PRN #10 tablet 11/18/16 03/29/19 Unknown Rx Aspirin [Aspirin BABY CHEW TAB] 81 mg PO QDAY #30 tab.chew 12/28/16 03/29/19 Unknown Rx Budesoni/Formotero 160-4.5(Nf) 1 puff IH BID #1 inha 12/28/16 03/29/19 Unknown Rx [Symbicort 160-4.5 (Nf)] Furosemide [Lasix TAB] 20 mg PO DAILY@0600 #30 tablet 12/28/16 03/29/19 Unknown Rx Ipratropium/Albuterol Sulfate 1 ampul IH Q4HR #1 box 12/28/16 03/29/19 Unknown Rx [DUONEB *Not for PRN Use*] Montelukast [Singulair] 10 mg PO QHS #30 tablet 12/28/16 03/29/19 Unknown Rx ALBUTEROL NEB's [Proventil 0.083% 2.5 mg IH TID PRN #1 box 12/16/17 03/29/19 Unknown Rx NEBS] Albuterol Sulfate [Albuterol 0.63% 0.63 mg IH TID PRN #90 ml 02/10/18 03/29/19 Unknown Rx NEBS] Fluticasone/Salmeterol [Advair 1 each IH BID #1 blst.w.dev 02/10/18 03/29/19 Unknown Rx 500-50 Diskus] Active Meds: Active Medications Acetaminophen (Tylenol) 650 mg PO Q4H PRN PRN Reason: Pain MILD(1-3)/Fever >100.5/ANTONIO Enoxaparin Sodium (Enoxaparin) 40 mg SUB-Q QDAY REANNA Ondansetron HCl (Zofran) 4 mg IV Q8H PRN PRN Reason: Nausea And Vomiting Sodium Chloride (Sodium Chloride Flush Syringe 10 Ml) 10 ml IV PRN PRN PRN Reason: LINE FLUSH Sodium Chloride (Sodium Chloride Flush Syringe 10 Ml) 10 ml IV BID REANNA Sodium Chloride (Sodium Chloride Flush Syringe 10 Ml) 10 ml IV PRN PRN PRN Reason: LINE FLUSH Physical Examination Vital Signs Resp Pulse Ox 22 100 03/29/19 00:51 03/29/19 00:51 General appearance: no acute distress HEENT: Positive: PERRL Neck: Positive: trachea midline Cardiac: Positive: Reg Rate and Rhythm Lungs: Positive: Normal Breath Sounds Neuro: Positive: Grossly Intact Extremities: Absent: edema Results 03/29/19 00:48 03/29/19 00:48 Coagulation 03/29/19 Range/Units 00:48 PT 17.0 H (12.2-14.9) Sec. INR 1.36 H (0.87-1.13) APTT 32.1 (24.2-36.6) Sec. CBC 03/29/19 Range/Units 00:48 WBC 4.6 (4.5-11.0) K/mm3 RBC 4.00 (3.65-5.03) M/mm3 Hgb 11.3 (10.1-14.3) gm/dl Hct 34.2 (30.3-42.9) % Plt Count 222 (140-440) K/mm3 Lymph # 1.6 (1.2-5.4) K/mm3 [place] # 0.5 (0.0-0.8) K/mm3 Eos # 0.2 (0.0-0.4) K/mm3 Baso # 0.0 (0.0-0.1) K/mm3 Comprehensive Metabolic Panel 03/29/19 Range/Units 00:48 Sodium 141 (137-145) mmol/L Potassium 4.3 (3.6-5.0) mmol/L Chloride 106.9 (98-107) mmol/L Carbon Dioxide 24 (22-30) mmol/L BUN 10 (7-17) mg/dL Creatinine 0.9 (0.7-1.2) mg/dL Glucose 98 (65-100) mg/dL Calcium 9.2 (8.4-10.2) mg/dL Assessment and Plan - Patient Problems (1) Chest pain, atypical Current Visit: No Status: Acute Plan to address problem: Atypical chest pain Cardiac isoenzymes are normal and her ECG is benign. LHC in 2017 showed normal coronaries, ejection fraction 20%. An echocardiogram in 2017 reported an ejection fraction 50-55%. A re-echo in 2018 showed an ejection fraction 50% which indicates likely contrast induced LV depression at the time of the cardiac cath. No cardiac workup indicated for atypical chest pain.
--- NOTE | 2019-03-29 11:44 | Discharge Summary ---
Providers - Providers Date of Admission: 03/29/19 02:39 Date of discharge: 03/29/19 Attending physician: HUGO SZYMANSKI 03/29/19 Consult to Cardiac Rehabilitation [CONS] Routine Reason For Exam: Phase I 03/29/19 09:25 Consult to Physician [CONS] Routine Comment: Consulting Provider: SARAH HANNAH Physician Instructions: Reason For Exam: cp Primary care physician: RON BAUMANN Hospitalization Reason for admission: cp Condition: Stable Hospital course: This is a 53-year old woman with a history of chronic asthma, who presents with chest pain and shortness of breath. Chest pain was poorly characterized, nonexertional chest pain under her left breast. Chest x-ray was negative. Cardiac isoenzymes were normal and her ECG was benign. Cardiac consultation was obtained. Patient reportedly had a cardiac catheterization 2 years ago that showed normal coronaries, ejection fraction 20%. An echocardiogram during the same admission, reported an ejection fraction 50-55%. In 2018 a re-echo showed an ejection fraction 50% which indicates likely contrast induced LV depression at the time of the cardiac cath. Cardiology felt that given no ischemic ECG changes, negative troponin, negative BNP and normal chest x-ray that no further cardiac workup is needed at this time. Therefore, patient is felt to have received maximal hospital benefit and will be discharged home. Etiology of chest pain is likely GERD. Dedicated discharge time 32 minutes. Disposition: DC-01 TO HOME OR SELFCARE Time spent for discharge: 32 - Discharge Diagnoses (1) Chest pain, atypical Status: Acute Core Measure Documentation - Palliative Care Palliative Care/ Comfort Measures: Not Applicable - Core Measures Any of the following diagnoses?: none Exam - Constitutional Vitals: Temp Pulse Resp BP Pulse Ox 98.0 F 66 18 118/72 98 03/29/19 05:24 03/29/19 05:24 03/29/19 05:24 03/29/19 05:24 03/29/19 05:24 General appearance: Present: no acute distress, well-nourished - EENT Eyes: Present: PERRL ENT: hearing intact, clear oral mucosa - Neck Neck: Present: supple, normal ROM - Respiratory Respiratory effort: normal Respiratory: bilateral: CTA - Cardiovascular Heart Sounds: Present: S1 & S2. Absent: rub, click - Extremities Extremities: pulses symmetrical, No edema Peripheral Pulses: within normal limits - Abdominal General gastrointestinal: Present: soft, non-tender, non-distended, normal bowel sounds Female genitourinary: Present: normal - Integumentary Integumentary: Present: clear, warm, dry - Musculoskeletal Musculoskeletal: gait normal, strength equal bilaterally - Psychiatric Psychiatric: appropriate mood/affect, intact judgment & insight - Neurologic Neurologic: CNII-XII intact, moves all extremities Plan Activity: advance as tolerated Weight Bearing Status: Weight Bear as Tolerated Diet: low fat, low cholesterol, low salt Follow up with: RON BAUMANN MD [Primary Care Provider] - 7 Days SARAH HANNAH MD [Staff Physician] - 7 Days Prescriptions: Albuterol Sulfate [Albuterol 0.63% NEBS] 0.63 mg IH TID PRN #90 ml PRN Reason: Wheezing Aspirin [Aspirin BABY CHEW TAB] 81 mg PO QDAY #30 tab.chew Ipratropium/Albuterol Sulfate [DUONEB *Not for PRN Use*] 1 ampul IH Q4HR #1 box Gabapentin 300 mg PO Q8HR #90 cap Furosemide [Lasix TAB] 20 mg PO DAILY@0600 #30 tablet Meloxicam [Mobic] 7.5 mg PO BID #24 tablet ALBUTEROL NEB's [Proventil 0.083% NEBS] 2.5 mg IH TID PRN #1 box PRN Reason: Wheezing Montelukast [Singulair] 10 mg PO QHS #30 tablet diazePAM TAB [Valium] 2 mg PO TID PRN #10 tablet PRN Reason: Muscle Spasm
--- NOTE | 2019-03-29 13:32 | History and Physical Report ---
History of Present Illness Date of examination: 03/29/19 Date of admission: 03/29/19 02:39 Chief complaint: cp History of present illness: 53-year-old female with past medical history of CHF, diabetes mellitus type 2, hypertension and asthma who presented through the emergency department with complaints of chest pain. Patient described the pain as a sharp continuous pain in the left chest with radiation to the left arm. Patient also reported some associated shortness of breath. Patient was given aspirin, and nitroglycerin en route to the hospital by EMS which did help with the discomfort. Patient has had no wheezing and does not feel that her symptoms are related to her asthma. She denied cough. The patient was admitted with diagnosis of atypical chest pain and seen by cardiology in consultation. Past History Past Medical History: diabetes, heart failure, hypertension, hyperlipidemia, other (asthma) Past Surgical History: No surgical history Social history: no significant social history Family history: no significant family history Medications and Allergies Allergies Allergy/AdvReac Type Severity Reaction Status Date / Time amoxicillin Allergy Anaphylaxis Verified 03/29/19 00:50 Penicillins Allergy Rash Verified 07/25/17 08:05 seafood Allergy Severe Anaphylaxis Uncoded 03/16/17 01:08 Home Medications Medication Instructions Recorded Confirmed Last Taken Type Budesoni/Formotero 160-4.5(Nf) 1 puff IH BID #1 inha 12/28/16 03/29/19 Unknown Rx [Symbicort 160-4.5 (Nf)] Fluticasone/Salmeterol [Advair 1 each IH BID #1 blst.w.dev 02/10/18 03/29/19 Unknown Rx 500-50 Diskus] ALBUTEROL NEB's [Proventil 0.083% 2.5 mg IH TID PRN #1 box 03/29/19 Unknown Rx NEBS] Albuterol Sulfate [Albuterol 0.63% 0.63 mg IH TID PRN #90 ml 03/29/19 Unknown Rx NEBS] Aspirin [Aspirin BABY CHEW TAB] 81 mg PO QDAY #30 tab.chew 03/29/19 Unknown Rx Furosemide [Lasix TAB] 20 mg PO DAILY@0600 #30 tablet 03/29/19 Unknown Rx Gabapentin 300 mg PO Q8HR #90 cap 03/29/19 Unknown Rx Ipratropium/Albuterol Sulfate 1 ampul IH Q4HR #1 box 03/29/19 Unknown Rx [DUONEB *Not for PRN Use*] Meloxicam [Mobic] 7.5 mg PO BID #24 tablet 03/29/19 Unknown Rx Montelukast [Singulair] 10 mg PO QHS #30 tablet 03/29/19 Unknown Rx diazePAM TAB [Valium] 2 mg PO TID PRN #10 tablet 03/29/19 Unknown Rx Active Meds: Active Medications Acetaminophen (Tylenol) 650 mg PO Q4H PRN PRN Reason: Pain MILD(1-3)/Fever >100.5/ANTONIO Enoxaparin Sodium (Enoxaparin) 40 mg SUB-Q QDAY REANNA Last Admin: 03/29/19 10:36 Dose: 40 mg Documented by: Ondansetron HCl (Zofran) 4 mg IV Q8H PRN PRN Reason: Nausea And Vomiting Sodium Chloride (Sodium Chloride Flush Syringe 10 Ml) 10 ml IV PRN PRN PRN Reason: LINE FLUSH Sodium Chloride (Sodium Chloride Flush Syringe 10 Ml) 10 ml IV BID REANNA Sodium Chloride (Sodium Chloride Flush Syringe 10 Ml) 10 ml IV PRN PRN PRN Reason: LINE FLUSH Review of Systems All systems: negative Exam - Constitutional Vitals: Temp Pulse Resp BP Pulse Ox 98.0 F 66 18 118/72 98 03/29/19 05:24 03/29/19 05:24 03/29/19 05:24 03/29/19 05:24 03/29/19 05:24 General appearance: Present: no acute distress, well-nourished - EENT Eyes: Present: PERRL ENT: hearing intact, clear oral mucosa - Neck Neck: Present: supple, normal ROM - Respiratory Respiratory effort: normal Respiratory: bilateral: CTA - Cardiovascular Heart Sounds: Present: S1 & S2. Absent: rub, click - Extremities Extremities: pulses symmetrical, No edema Peripheral Pulses: within normal limits - Abdominal General gastrointestinal: Present: soft, non-tender, non-distended, normal bowel sounds Female genitourinary: Present: normal - Integumentary Integumentary: Present: clear, warm, dry - Musculoskeletal Musculoskeletal: gait normal, strength equal bilaterally - Psychiatric Psychiatric: appropriate mood/affect, intact judgment & insight - Neurologic Neurologic: CNII-XII intact, moves all extremities Results - Labs CBC & Chem 7: 03/29/19 00:48 03/29/19 00:48 Labs: Laboratory Last Values WBC 4.6 K/mm3 (4.5-11.0) 03/29/19 00:48 RBC 4.00 M/mm3 (3.65-5.03) 03/29/19 00:48 Hgb 11.3 gm/dl (10.1-14.3) 03/29/19 00:48 Hct 34.2 % (30.3-42.9) 03/29/19 00:48 MCV 85 fl (79-97) 03/29/19 00:48 MCH 28 pg (28-32) 03/29/19 00:48 MCHC 33 % (30-34) 03/29/19 00:48 RDW 15.5 % (13.2-15.2) H 03/29/19 00:48 Plt Count 222 K/mm3 (140-440) 03/29/19 00:48 Lymph % (Auto) 34.8 % (13.4-35.0) 03/29/19 00:48 Gray % (Auto) 10.8 % (0.0-7.3) H 03/29/19 00:48 Eos % (Auto) 3.5 % (0.0-4.3) 03/29/19 00:48 Baso % (Auto) 0.9 % (0.0-1.8) 03/29/19 00:48 Lymph # 1.6 K/mm3 (1.2-5.4) 03/29/19 00:48 Gray # 0.5 K/mm3 (0.0-0.8) 03/29/19 00:48 Eos # 0.2 K/mm3 (0.0-0.4) 03/29/19 00:48 Baso # 0.0 K/mm3 (0.0-0.1) 03/29/19 00:48 Seg Neutrophils % 50.0 % (40.0-70.0) 03/29/19 00:48 Seg Neutrophils # 2.3 K/mm3 (1.8-7.7) 03/29/19 00:48 PT 17.0 Sec. (12.2-14.9) H 03/29/19 00:48 INR 1.36 (0.87-1.13) H 03/29/19 00:48 APTT 32.1 Sec. (24.2-36.6) 03/29/19 00:48 D-Dimer 296.30 ng/mlDDU (0-234) H 03/29/19 00:48 Sodium 141 mmol/L (137-145) 03/29/19 00:48 Potassium 4.3 mmol/L (3.6-5.0) 03/29/19 00:48 Chloride 106.9 mmol/L (98-107) 03/29/19 00:48 Carbon Dioxide 24 mmol/L (22-30) 03/29/19 00:48 Anion Gap 14 mmol/L 03/29/19 00:48 BUN 10 mg/dL (7-17) 03/29/19 00:48 Creatinine 0.9 mg/dL (0.7-1.2) 03/29/19 00:48 Estimated GFR > 60 ml/min 03/29/19 00:48 BUN/Creatinine Ratio 11 % 03/29/19 00:48 Glucose 98 mg/dL (65-100) 03/29/19 00:48 POC Glucose 118 (70-105) H 03/29/19 12:02 Calcium 9.2 mg/dL (8.4-10.2) 03/29/19 00:48 Troponin T < 0.010 ng/mL (0.00-0.029) 03/29/19 02:42 NT-Pro-B Natriuret Pep 88.83 pg/mL (0-900) 03/29/19 00:48 Assessment and Plan Assessment and plan: Atypical chest pain. Cardiology consultation. Cardiac isoenzymes, EKG and chest x-ray negative. Asthma. Compensated. No evidence of wheezing. Hypertension. Continue home antihypertensive medications. Diabetes mellitus type 2. Continue Accu-Cheks and sliding Scale insulin. - Patient Problems (1) Chest pain, atypical Current Visit: No Status: Acute
== END 2019-03-29 15:00 | disposition home or self-care (01) ==
LOC: ED 22:48 → 4A 03-29 02:39
PROVIDERS: ADMIT Internal Medicine Geriatric Medicine; ATTEND Hospitalist
DX: R07.89 Other chest pain (principal); I11.0 Hypertensive heart disease with heart failure; I50.9 Heart failure, unspecified; E11.9 Type 2 diabetes mellitus without complications; E78.5 Hyperlipidemia, unspecified; J45.909 Unspecified asthma, uncomplicated; Z79.01 Long term (current) use of anticoagulants; Z79.899 Other long term (current) drug therapy
CPT/HCPCS: 36415; 71045; 80048; 82962; 83880; 84484; 85025; 85379; 85610; 85730; 93005; 93010; 93970; 96372; 99284; G0378; J1650

== ENCOUNTER 2019-06-16 09:28 | Emergency (ER) | payer MEDICARE ==
[2019-06-16] MEDS ORDERED: IPRATROPIUM 0.02% NEBU 2.5 ML IH ONE (10:03)
[2019-06-16] MEDS ORDERED: ALBUTEROL 2.5 MG/3 ML NEBU IH ONE (10:03)
--- NOTE | 2019-06-16 10:07 | Emergency Department Report ---
HPI - General Chief Complaint: Dyspnea/Respdistress Time Seen by Provider: 06/16/19 09:44 - HPI HPI: Room 18 The patient is a 53-year-old female present with a chief complaint of shortness of breath. Patient states her symptoms began yesterday with a cough that has been nonproductive. Patient states this morning after taking her dog out to walk she continued to have a cough and shortness of breath. The patient states she took her nebulizer at home but it did not help. Patient denies history of fever ED Past Medical Hx - Past Medical History Previous Medical History?: Yes Hx Hypertension: Yes Hx Congestive Heart Failure: Yes Hx Diabetes: Yes Hx GERD: Yes Hx Arthritis: Yes Hx Psychiatric Treatment: Yes (Anxiety) Hx Asthma: Yes (has been intubated before for severe asthma) Additional medical history: Intubated x 8. heart murmur. osteoporosis. hearing loss in [place] - Surgical History Past Surgical History?: Yes Additional Surgical History: cataracts, nasal surg, tubal ligation. bilateral f oot. Left shoulder surgery, R. knee sx - Family History Family history: no significant - Social History Smoking Status: Never Smoker Substance Use Type: None - Medications Home Medications: Home Medications Medication Instructions Recorded Confirmed Last Taken Type Budesoni/Formotero 160-4.5(Nf) 1 puff IH BID #1 inha 12/28/16 03/29/19 Unknown Rx [Symbicort 160-4.5 (Nf)] Fluticasone/Salmeterol [Advair 1 each IH BID #1 blst.w.dev 02/10/18 03/29/19 Unknown Rx 500-50 Diskus] ALBUTEROL NEB's [Proventil 0.083% 2.5 mg IH TID PRN #1 box 03/29/19 Unknown Rx NEBS] Albuterol Sulfate [Albuterol 0.63% 0.63 mg IH TID PRN #90 ml 03/29/19 Unknown Rx NEBS] Aspirin [Aspirin BABY CHEW TAB] 81 mg PO QDAY #30 tab.chew 03/29/19 Unknown Rx Furosemide [Lasix TAB] 20 mg PO DAILY@0600 #30 tablet 03/29/19 Unknown Rx Gabapentin 300 mg PO Q8HR #90 cap 03/29/19 Unknown Rx Ipratropium/Albuterol Sulfate 1 ampul IH Q4HR #1 box 03/29/19 Unknown Rx [DUONEB *Not for PRN Use*] Meloxicam [Mobic] 7.5 mg PO BID #24 tablet 03/29/19 Unknown Rx Montelukast [Singulair] 10 mg PO QHS #30 tablet 03/29/19 Unknown Rx diazePAM TAB [Valium] 2 mg PO TID PRN #10 tablet 03/29/19 Unknown Rx Albuterol INH(or & Nicu Only) 2 puff IH QID PRN #8.5 gram 06/16/19 Unknown Rx [ProAir HFA Inhaler] Azithromycin [Zithromax Z-EMRARY] 0 mg PO DAILY #6 tab 06/16/19 Unknown Rx guaiFENesin DM [Guaifenesin Dm 10 ml PO Q8H #200 ml 06/16/19 Unknown Rx Syrup] ED Review of Systems ROS: Stated complaint: DIFFICULTY BREATHING Other details as noted in HPI Constitutional: denies: fever Eyes: denies: eye pain ENT: congestion Respiratory: cough, shortness of breath Physical Exam - Physical Exam Vital Signs: Vital Signs 06/16/19 09:38 Temperature 97.9 F Pulse Rate 89 Respiratory 11 L Rate Blood Pressure 131/83 [Right] O2 Sat by Pulse 99 Oximetry Physical Exam: GENERAL: The patient is well-developed well-nourished female sitting on stretcher using cell phone not appearing to be in acute distress. [] HEENT: Normocephalic. Atraumatic. Extraocular motions are intact. Patient has moist mucous membranes. NECK: Supple. Trachea midline CHEST/LUNGS: Occasional rhonchi. There is no respiratory distress noted. HEART/CARDIOVASCULAR: Regular. There is no tachycardia. There is no gallop rub or murmur. ABDOMEN: Abdomen is soft, nontender. Patient has normal bowel sounds. There is no abdominal distention. SKIN: There is no rash. There is no diaphoresis. and gait. MUSCULOSKELETAL: There is no evidence of acute injury. ED Course Vital Signs 06/16/19 09:38 Temperature 97.9 F Pulse Rate 89 Respiratory 11 L Rate Blood Pressure 131/83 [Right] O2 Sat by Pulse 99 Oximetry ED Medical Decision Making - Lab Data Result diagrams: 06/16/19 10:09 06/16/19 10:09 Laboratory Tests 06/16/19 06/16/19 10:09 10:09 WBC 4.2 L RBC 3.67 Hgb 10.7 Hct 31.6 MCV 86 MCH 29 MCHC 34 RDW 13.8 Plt Count 237 Lymph % (Auto) 37.4 H Cochran % (Auto) 10.4 H Eos % (Auto) 7.4 H Baso % (Auto) 1.1 Lymph # 1.6 Cochran # 0.4 Eos # 0.3 Baso # 0.0 Seg Neutrophils % 43.7 Seg Neutrophils # 1.8 Sodium 140 Potassium 3.7 Chloride 106.3 Carbon Dioxide 21 L Anion Gap 16 BUN 14 Creatinine 0.9 Estimated GFR > 60 BUN/Creatinine Ratio 16 Glucose 90 Calcium 9.1 Total Creatine Kinase 475 H CK-MB (CK-2) 3.3 CK-MB (CK-2) Rel Index 0.6 Troponin T < 0.010 - EKG Data -: EKG Interpreted by Me EKG shows normal: sinus rhythm Rate: normal - EKG Data When compared to previous EKG there are: previous EKG unavailable Interpretation: other (No ischemic changes seen) - Radiology Data Radiology results: report reviewed (Chest x-ray), image reviewed (Chest x-ray) interpreted by me: Chest x-ray-no focal infiltrates, no pneumothorax [facility] [address] [place] [address] XRay Report Signed Patient: EDIE RENDON MR#: [id number] : 1965 Acct:[id number] Age/Sex: 53 / F ADM Date: 06/16/19 Loc: ED Attending Dr: Ordering Physician: ALICIA HARVEY MD Date of Service: 06/16/19 Procedure(s): XR chest 1V ap Accession Number(s): [id number] cc: ALICIA HARVEY MD Fluoro Time In Minutes: CHEST 1 VIEW, 06/16/2019 9:55 AM CLINICAL INFORMATION/INDICATION: Chest pain. Shortness of breath. COMPARISON: Chest radiograph, 03/29/2019 FINDINGS: SUPPORT DEVICES: None. HEART: The cardiac silhouette is normal in size. LUNGS/PLEURA: The lungs are clear of focal airspace disease or significant pleural effusion. ADDITIONAL FINDINGS: No additional acute findings. IMPRESSION: 1. No evidence of acute cardiopulmonary process. Signer Name: Bess Rivas MD Signed: 06/16/2019 10:35 AM Workstation Name: [id number] Transcribed By: EB Dictated By: Bess Rivas MD Electronically Authenticated By: Bess Rivas MD Signed Date/Time: 06/16/19 1035 DD/ 1034 TD/TT: - Differential Diagnosis Bronchitis, pneumonia, asthma exacerbation, anxiety Critical care attestation.: If time is entered above; I have spent that time in minutes in the direct care of this critically ill patient, excluding procedure time. ED Disposition Clinical Impression: Cough, Chest congestion Disposition: - TO HOME OR SELFCARE Is pt being admited?: No Does the pt Need Aspirin: No Condition: Stable Instructions: Cold Symptoms (ED) Additional Instructions: Return to the emergency department should you develop worsening symptoms, inability to tolerate food or liquids, high fever or any other concerns Prescriptions: guaiFENesin DM [Guaifenesin Dm Syrup] 10 ml PO Q8H #200 ml Albuterol INH(or & Nicu Only) [ProAir HFA Inhaler] 2 puff IH QID PRN #8.5 gram PRN Reason: Shortness Of Breath Azithromycin [Zithromax Z-MERARY] 0 mg PO DAILY #6 tab Referrals: PRIMARY CARE, [Referring] - 3-5 Days Time of Disposition: 11:07
[2019-06-16 10:25] LABS: Basophils % (Auto) 1.1 % (0.0-1.8); Eosinophils # (Auto) 0.3 K/mm3 (0.0-0.4); Eosinophils % (Auto) 7.4 % (0.0-4.3); Hematocrit 31.6 % (30.3-42.9); Hemoglobin 10.7 gm/dl (10.1-14.3); Lymphocytes # (Auto) 1.6 K/mm3 (1.2-5.4); Lymphocytes % (Auto) 37.4 % (13.4-35.0); Mean Corpuscular HGB Conc 34 % (30-34); Mean Corpuscular Volume 86 fl (79-97); Monocytes # (Auto) 0.4 K/mm3 (0.0-0.8); Monocytes % (Auto) 10.4 % (0.0-7.3); Platelet Count 237 K/mm3 (140-440); Red Blood Count 3.67 M/mm3 (3.65-5.03); Red Cell Distribution Width 13.8 % (13.2-15.2)
--- NOTE | 2019-06-16 10:39 | XRay Report ---
CHEST 1 VIEW, 06/16/2019 9:55 AM CLINICAL INFORMATION/INDICATION: Chest pain. Shortness of breath. COMPARISON: Chest radiograph, 03/29/2019 FINDINGS: SUPPORT DEVICES: None. HEART: The cardiac silhouette is normal in size. LUNGS/PLEURA: The lungs are clear of focal airspace disease or significant pleural effusion. ADDITIONAL FINDINGS: No additional acute findings. IMPRESSION: 1. No evidence of acute cardiopulmonary process. Signer Name: Bess Rivas MD Signed: 06/16/2019 10:35 AM Workstation Name: [id number]
[2019-06-16 10:42] LABS: BUN/Creatinine Ratio 16; Blood Urea Nitrogen 14 mg/dL (7-17); Calcium 9.1 mg/dL (8.4-10.2); Creatine Kinase MB 3.3 ng/mL (0.0-4.0); Hemolysis Index 35
[2019-06-16 11:25] VITALS: BP 116/64
== END 2019-06-16 11:24 | disposition home or self-care (01) ==
LOC: ED 09:28
DX: R05 Cough (principal); R06.02 Shortness of breath; I11.0 Hypertensive heart disease with heart failure; E11.9 Type 2 diabetes mellitus without complications; K21.9 Gastro-esophageal reflux disease without esophagitis; I50.9 Heart failure, unspecified; F41.9 Anxiety disorder, unspecified; J45.909 Unspecified asthma, uncomplicated; Z98.890 Other specified postprocedural states; Z98.51 Tubal ligation status; Z79.899 Other long term (current) drug therapy; Z88.0 Allergy status to penicillin; Z88.1 Allergy status to other antibiotic agents; Z91.013 Allergy to seafood
CPT/HCPCS: 36415; 71045; 80048; 82550; 82553; 84484; 85025; 93005; 93010; 94640; 94644

== ENCOUNTER 2019-07-27 12:34 | Emergency (ER) | payer MEDICARE ==
--- NOTE | 2019-07-27 13:07 | Emergency Department Report ---
ED Shortness of Breath HPI - General Chief Complaint: Dyspnea/Respdistress Stated Complaint: ASTHMA Time Seen by Provider: 07/27/19 13:03 Source: patient Mode of arrival: Ambulatory Limitations: No Limitations - History of Present Illness Initial Comments: This is a 53-year-old type II diabetic lady with a history of hypertension anxiety and asthma. She has had multiple emergency department visits for the same. She was last admitted in June for exacerbation of asthma. She has a history of angiographically normal coronary arteries. She states that she took 1 neb today and 1 yesterday. She has a sensation that she needs to "open up her chest". She refers some tightness on breathing in her left mammary area which does not radiate. She states this is typical for her exacerbation of asthma. She denies fever chills or cough. She has not recently been on steroids. Last discharge summary: Hospitalization Reason for admission: Acute asthma exacerbation Condition: Fair Hospital course: This is a 53-year old woman with a history of diabetes, hypertension, anxiety and asthma. In 2016 she underwent a right and left cardiac cath that showed mild pulmonary hypertension, angiographically normal coronaries. An echo reports a normal left ventricular systolic function, ejection fraction 50-55%. A follow up echo in 2018 showed a normal left ventricular systolic function, ejection fraction 50%. Patient presented to the emergency room with complaints of dyspnea not relieved by her inhalers. Upon arrival to the emergency room, she was noted to have a oxygen saturation at 87%. Initially, the patient was treated with Bipap in the emergency department but was quickly transitioned to nasal cannula. A cardiac consultation was requested for CHF evaluation. There was no lower extremity edema. Labs shows a normal BNP and a chest x-ray was negative. An ECG is benign, normal sinus rhythm. The patient was admitted with diagnosis of acute asthma exacerbation and treated with IV steroids, bronchodilators and nebulizer treatments. Patient has slow but significant improvement throughout hospitalization. Patient was weaned off the oxygen and back to her baseline respiratory status on room air. Patient is felt to receive maximal hospital benefit for discharge home. Dedicated discharge time 35 minutes. Disposition: -01 TO HOME OR SELFCARE Time spent for discharge: 35 - Discharge Diagnoses (1) Acute respiratory failure Status: Acute Qualifiers: Respiratory failure complication: hypoxia Qualified Code(s): J96.01 - Acute respiratory failure with hypoxia (2) Diabetes Status: Acute (3) Osteoarthritis Status: Acute Qualifiers: Laterality: unspecified laterality (4) Asthma exacerbation Status: Acute (5) Bronchospasm Status: Acute MD Complaint: "asthma attack" -: Gradual, days(s) Severity: mild, moderate Quality: other (a tightness) Consistency: intermittent Improves With: nothing Worsens With: nothing Known History Of: asthma Associated Symptoms: denies other symptoms - Related Data Previous Rx's Medication Instructions Recorded Last Taken Type Aspirin [Aspirin BABY CHEW TAB] 81 mg PO QDAY #30 tab.chew 07/07/19 Unknown Rx Furosemide [Lasix TAB] 20 mg PO DAILY@0600 #30 tablet 07/07/19 Unknown Rx Gabapentin 300 mg PO Q8HR #90 capsule 07/07/19 Unknown Rx Ipratropium/Albuterol Sulfate 1 ampul IH Q4HR #1 box 07/07/19 Unknown Rx [DUONEB *Not for PRN Use*] diazePAM TAB [Valium] 2 mg PO TID PRN #10 tablet 07/07/19 Unknown Rx guaiFENesin DM [Guaifenesin Dm 10 ml PO Q8HR 10 Days oral.liqd 07/07/19 Unknown Rx Syrup] lisinopriL [Zestril TAB] 20 mg PO QDAY #30 07/07/19 Unknown Rx metFORMIN [Glucophage] 500 mg PO BID #60 07/07/19 Unknown Rx methylPREDNISolone [Medrol 4MG 4 mg PO DAILY #1 tab.ds.pk 07/07/19 Unknown Rx DOSEPAK (21 tabs)] Albuterol Sulfate [Proair 90 mcg IH Q4HR #1 aer.pw.bas 07/27/19 Unknown Rx Digihaler] Fluticasone/Salmeterol [Advair 1 puff IH BID #1 disk.w.dev 07/27/19 Unknown Rx Diskus 250-50 mcg] Montelukast [Singulair] 10 mg PO QHS #30 tablet 07/27/19 Unknown Rx Allergies Allergy/AdvReac Type Severity Reaction Status Date / Time amoxicillin Allergy Anaphylaxis Verified 03/29/19 00:50 Penicillins Allergy Rash Verified 07/25/17 08:05 seafood Allergy Severe Anaphylaxis Uncoded 03/16/17 01:08 ED Review of Systems ROS: Stated complaint: ASTHMA Other details as noted in HPI Constitutional: denies: chills, fever Eyes: denies: eye pain, eye discharge, vision change ENT: denies: ear pain, throat pain Respiratory: wheezing. denies: cough, shortness of breath Cardiovascular: as per HPI. denies: palpitations Endocrine: no symptoms reported Gastrointestinal: denies: abdominal pain, nausea, diarrhea Genitourinary: denies: urgency, dysuria, discharge Musculoskeletal: denies: back pain, joint swelling, arthralgia Skin: denies: rash, lesions Neurological: denies: headache, weakness, paresthesias Psychiatric: denies: anxiety, depression Hematological/Lymphatic: denies: easy bleeding, easy bruising ED Past Medical Hx - Past Medical History Previous Medical History?: Yes Hx Hypertension: Yes Hx Heart Attack/AMI: No Hx Congestive Heart Failure: Yes Hx Diabetes: Yes Hx Pulmonary Embolism: No Hx GERD: Yes Hx Liver Disease: No Hx Renal Disease: No Hx Sickle Cell Disease: No Hx Arthritis: Yes Hx Headaches / Migraines: No Hx Seizures: No Hx Kidney Stones: No Hx Psychiatric Treatment: Yes (Anxiety) Hx Asthma: Yes Hx Tuberculosis: No Hx HIV: No Additional medical history: Intubated x 8. heart murmur. osteoporosis. hearing loss in [place] - Surgical History Past Surgical History?: Yes Hx Coronary Stent: No Hx Open Heart Surgery: No Hx Pacemaker: No Hx Internal Defibrillator: No Hx Cholecystectomy: No Hx Appendectomy: No Hx Breast Surgery: No Additional Surgical History: cataracts, nasal surg, tubal ligation. bilateral foot. Left shoulder surgery, R. knee sx - Social History Smoking Status: Never Smoker Substance Use Type: None - Medications Home Medications: Home Medications Medication Instructions Recorded Confirmed Last Taken Type Aspirin [Aspirin BABY CHEW TAB] 81 mg PO QDAY #30 tab.chew 07/07/19 Unknown Rx Furosemide [Lasix TAB] 20 mg PO DAILY@0600 #30 tablet 07/07/19 Unknown Rx Gabapentin 300 mg PO Q8HR #90 capsule 07/07/19 Unknown Rx Ipratropium/Albuterol Sulfate 1 ampul IH Q4HR #1 box 07/07/19 Unknown Rx [DUONEB *Not for PRN Use*] diazePAM TAB [Valium] 2 mg PO TID PRN #10 tablet 07/07/19 Unknown Rx guaiFENesin DM [Guaifenesin Dm 10 ml PO Q8HR 10 Days oral.liqd 07/07/19 Unknown Rx Syrup] lisinopriL [Zestril TAB] 20 mg PO QDAY #30 07/07/19 Unknown Rx metFORMIN [Glucophage] 500 mg PO BID #60 07/07/19 Unknown Rx methylPREDNISolone [Medrol 4MG 4 mg PO DAILY #1 tab.ds.pk 07/07/19 Unknown Rx DOSEPAK (21 tabs)] Albuterol Sulfate [Proair 90 mcg IH Q4HR #1 aer.pw.bas 07/27/19 Unknown Rx Digihaler] Fluticasone/Salmeterol [Advair 1 puff IH BID #1 disk.w.dev 07/27/19 Unknown Rx Diskus 250-50 mcg] Montelukast [Singulair] 10 mg PO QHS #30 tablet 07/27/19 Unknown Rx ED Physical Exam - General Limitations: No Limitations General appearance: alert, in no apparent distress - Head Head exam: Present: atraumatic, normocephalic - Eye Eye exam: Present: normal appearance. Absent: scleral icterus - ENT ENT exam: Present: mucous membranes moist - Neck Neck exam: Present: normal inspection. Absent: tenderness, meningismus - Respiratory Respiratory exam: Present: prolonged expiratory. Absent: respiratory distress, wheezes - Cardiovascular Cardiovascular Exam: Present: regular rate, normal rhythm. Absent: systolic murmur, diastolic murmur, rubs, gallop - GI/Abdominal GI/Abdominal exam: Present: soft, normal bowel sounds. Absent: distended, tenderness, guarding, rebound - Extremities Exam Extremities exam: Present: normal inspection. Absent: tenderness, pedal edema, joint swelling, calf tenderness - Back Exam Back exam: Present: normal inspection - Neurological Exam Neurological exam: Present: alert, oriented X3, CN II-XII intact. Absent: motor sensory deficit - Psychiatric Psychiatric exam: Present: normal affect, normal mood - Skin Skin exam: Present: warm, dry, intact, normal color. Absent: rash ED Course Vital Signs 07/27/19 07/27/19 12:39 13:20 Temperature 98.6 F 98.4 F Pulse Rate 89 75 Respiratory 20 18 Rate Blood Pressure 137/95 Blood Pressure 114/76 [Left] O2 Sat by Pulse 96 100 Oximetry - Reevaluation(s) Reevaluation #1: Wheezing resolved. Patient ready for discharge. She now states that she is actually out of her pro-air. She states that she was prior on Advair and it has not been prescribed for a while. I explained to her the difference between a rescue inhaler and maintenance steroid medications. I will prescribe both. 07/27/19 15:19 ED Medical Decision Making - EKG Data -: EKG Interpreted by Me EKG shows normal: sinus rhythm Rate: normal - EKG Data Interpretation: no acute changes, other (one PVC) - Radiology Data Radiology results: report reviewed (NAF), image reviewed Critical care attestation.: If time is entered above; I have spent that time in minutes in the direct care of this critically ill patient, excluding procedure time. ED Disposition Clinical Impression: Acute asthma exacerbation Qualifiers: Asthma severity: moderate Asthma persistence: persistent Qualified Code(s): J45.41 - Moderate persistent asthma with (acute) exacerbation Disposition: - TO HOME OR SELFCARE Is pt being admited?: No Does the pt Need Aspirin: No Condition: Stable Instructions: Asthma (ED) Additional Instructions: Follow-up with your primary care provider return any acute change or worsening symptoms. Prescriptions: Fluticasone/Salmeterol [Advair Diskus 250-50 mcg] 1 puff IH BID #1 disk.w.dev Albuterol Sulfate [Proair Digihaler] 90 mcg IH Q4HR #1 aer.pw.bas Montelukast [Singulair] 10 mg PO QHS #30 tablet Referrals: Usual, primary care [Other] - 2-3 Days Time of Disposition: 15:25
[2019-07-27] MEDS ORDERED: IPRATROPIUM/ALBUTEROL SULFATE 3 ML AMPUL.NEB IH ONE (13:15)
--- NOTE | 2019-07-27 13:28 | XRay Report ---
CHEST 1 VIEW, 07/27/2019 1:03 PM CLINICAL INFORMATION/INDICATION: Shortness of breath COMPARISON: Chest radiograph, 07/04/2019 FINDINGS: SUPPORT DEVICES: None. HEART: The cardiac silhouette is normal in size. LUNGS/PLEURA: The lungs are clear of focal airspace disease or significant pleural effusion ADDITIONAL FINDINGS: No additional acute findings. IMPRESSION: 1. No evidence of acute cardiopulmonary process. Signer Name: Bess Rivas MD Signed: 07/27/2019 1:24 PM Workstation Name: [id number]
[2019-07-27] MEDS ORDERED: dexAMETHasone 4 MG/ML VIAL IM ONE (13:54)
[2019-07-27 15:38] VITALS: BP 128/71
== END 2019-07-27 15:59 | disposition home or self-care (01) ==
LOC: ED 12:34
DX: J45.901 Unspecified asthma with (acute) exacerbation (principal); I11.0 Hypertensive heart disease with heart failure; I50.9 Heart failure, unspecified; E11.9 Type 2 diabetes mellitus without complications; K21.9 Gastro-esophageal reflux disease without esophagitis; M19.91 Primary osteoarthritis, unspecified site; F41.9 Anxiety disorder, unspecified; Z98.890 Other specified postprocedural states; Z79.899 Other long term (current) drug therapy; Z88.0 Allergy status to penicillin; Z88.1 Allergy status to other antibiotic agents; Z91.013 Allergy to seafood
CPT/HCPCS: 71045; 82962; 93005; 93010; 94640; 96372; 99283; J1100; 94644

== ENCOUNTER 2019-09-03 09:54 | Emergency (ER) | payer MEDICARE ==
[2019-09-03] MEDS ORDERED: IPRATROPIUM 0.02% NEBU 2.5 ML IH ONE ×2 (10:29→14:17)
[2019-09-03] MEDS ORDERED: ALBUTEROL 2.5 MG/3 ML NEBU IH ONE ×2 (10:29→14:17)
[2019-09-03] MEDS ORDERED: methylPREDNISolone Sod Succinate 125 MG/2 ML INJ IV ONE (10:30)
--- NOTE | 2019-09-03 10:34 | Emergency Department Report ---
HPI - General Chief Complaint: Adult Asthma PUI?: No Time Seen by Provider: 09/03/19 10:08 - HPI HPI: Room 20 The patient is a 54-year-old female present with a chief complaint of wheezing. Patient states she feels like her asthma began bothering her yesterday she began to wheeze. Patient states it worsened over night. The patient states she took 3 nebs at home and then went to sleep but after awakening this morning she felt "the same." Patient denies a cough or fever. Patient states she was tested for COVID-19 last month and was negative. ED Past Medical Hx - Past Medical History Previous Medical History?: Yes Hx Hypertension: Yes Hx Congestive Heart Failure: Yes Hx Diabetes: Yes Hx GERD: Yes Hx Arthritis: Yes Hx Psychiatric Treatment: Yes (Anxiety) Hx Asthma: Yes Additional medical history: Intubated x 8. heart murmur. osteoporosis. hearing loss in [place] - Surgical History Additional Surgical History: cataracts, nasal surg, tubal ligation. bilateral foot. Left shoulder surgery, R. knee sx - Family History Family history: no significant - Social History Smoking Status: Never Smoker Substance Use Type: None - Medications Home Medications: Home Medications Medication Instructions Recorded Confirmed Last Taken Type Aspirin [Aspirin BABY CHEW TAB] 81 mg PO QDAY #30 tab.chew 07/07/19 Unknown Rx Furosemide [Lasix TAB] 20 mg PO DAILY@0600 #30 tablet 07/07/19 Unknown Rx Gabapentin 300 mg PO Q8HR #90 capsule 07/07/19 Unknown Rx Ipratropium/Albuterol Sulfate 1 ampul IH Q4HR #1 box 07/07/19 Unknown Rx [DUONEB *Not for PRN Use*] diazePAM TAB [Valium] 2 mg PO TID PRN #10 tablet 07/07/19 Unknown Rx guaiFENesin DM [Guaifenesin Dm 10 ml PO Q8HR 10 Days oral.liqd 07/07/19 Unknown Rx Syrup] lisinopriL [Zestril TAB] 20 mg PO QDAY #30 07/07/19 Unknown Rx metFORMIN [Glucophage] 500 mg PO BID #60 07/07/19 Unknown Rx methylPREDNISolone [Medrol 4MG 4 mg PO DAILY #1 tab.ds.pk 07/07/19 Unknown Rx DOSEPAK (21 tabs)] Albuterol Sulfate [Proair 90 mcg IH Q4HR #1 aer.pw.bas 07/27/19 Unknown Rx Digihaler] Fluticasone/Salmeterol [Advair 1 puff IH BID #1 disk.w.dev 07/27/19 Unknown Rx Diskus 250-50 mcg] Montelukast [Singulair] 10 mg PO QHS #30 tablet 07/27/19 Unknown Rx Albuterol INH(or & Nicu Only) 2 puff IH QID PRN #8.5 gram 09/03/19 Unknown Rx [ProAir HFA Inhaler] HYDROcodone/APAP 5-325 [[place] 1 each PO Q6HR PRN #7 tablet 09/03/19 Unknown Rx 5/325] Prednisone [predniSONE 10 mg 10 mg PO .TAPER #1 tab.ds.pk 09/03/19 Unknown Rx (6-Day Pack, 21 Tabs)] ED Review of Systems ROS: Stated complaint: WHEEZING/ASTHMA Other details as noted in HPI Constitutional: no symptoms reported. denies: fever Respiratory: shortness of breath Cardiovascular: denies: chest pain Endocrine: no symptoms reported Gastrointestinal: denies: abdominal pain Genitourinary: denies: dysuria Musculoskeletal: denies: back pain Neurological: denies: headache Physical Exam - Physical Exam Vital Signs: Vital Signs 09/03/19 09:55 Temperature 98.5 F Pulse Rate 85 Respiratory 24 Rate Blood Pressure 134/82 O2 Sat by Pulse 98 Oximetry Physical Exam: GENERAL: The patient is well-developed well-nourished female lying on stretcher not appearing to be in acute distress. [] HEENT: Normocephalic. Atraumatic. Extraocular motions are intact. Patient has moist mucous membranes. NECK: Supple. Trachea midline CHEST/LUNGS: Very diminished. Occasional expiratory wheeze. There is no respiratory distress noted. HEART/CARDIOVASCULAR: Regular. There is no tachycardia. There is no gallop rub or murmur. ABDOMEN: Abdomen is soft, nontender. Patient has normal bowel sounds. There is no abdominal distention. SKIN: There is no rash. There is no edema. There is no diaphoresis. NEURO: The patient is awake, alert, and oriented. The patient is cooperative. The patient has normal speech MUSCULOSKELETAL: There is no evidence of acute injury. ED Course Vital Signs 09/03/19 09:55 Temperature 98.5 F Pulse Rate 85 Respiratory 24 Rate Blood Pressure 134/82 O2 Sat by Pulse 98 Oximetry ED Medical Decision Making - EKG Data -: EKG Interpreted by Me EKG shows normal: sinus rhythm Rate: normal - EKG Data When compared to previous EKG there are: previous EKG unavailable Interpretation: other (PVCs) - Radiology Data Radiology results: image reviewed (Chest x-ray) interpreted by me: Chest x-ray-no focal infiltrates, no pneumothorax - Differential Diagnosis Asthma exacerbation, CHF, anxiety Critical care attestation.: If time is entered above; I have spent that time in minutes in the direct care of this critically ill patient, excluding procedure time. ED Disposition Clinical Impression: Acute asthma exacerbation Disposition: - TO HOME OR SELFCARE Is pt being admited?: No Does the pt Need Aspirin: No Condition: Stable Instructions: Asthma (ED) Additional Instructions: Return to the emergency department should you develop worsening symptoms, inability to tolerate food or liquids, high fever or any other concerns Prescriptions: HYDROcodone/APAP 5-325 [[place] 5/325] 1 each PO Q6HR PRN #7 tablet PRN Reason: Pain Prednisone [predniSONE 10 mg (6-Day Pack, 21 Tabs)] 10 mg PO .TAPER #1 tab.ds.pk Albuterol INH(or & Nicu Only) [ProAir HFA Inhaler] 2 puff IH QID PRN #8.5 gram PRN Reason: Shortness Of Breath Referrals: JERILYN DOE MD [Primary Care Provider] - 3-5 Days Time of Disposition: 15:07
[2019-09-03] MEDS ORDERED: HYDROcodone/ACETAMINOPHEN 5-325 MG TAB PO ONE (14:02)
[2019-09-03 16:23] VITALS: BP 126/74
--- NOTE | 2019-09-03 18:51 | XRay Report ---
CHEST 1 VIEW INDICATION: shortness of breath/chest tightness. COMPARISON: 07/27/2019 FINDINGS: SUPPORT DEVICES: None. HEART / MEDIASTINUM: No significant abnormality. LUNGS / PLEURA: No significant pulmonary or pleural abnormality. No pneumothorax. ADDITIONAL FINDINGS: IMPRESSION: 1. No acute cardiopulmonary disease Signer Name: Andrea Christianson MD Signed: 09/03/2019 11:33 AM Workstation Name: [email or web address]
== END 2019-09-03 15:50 | disposition home or self-care (01) ==
LOC: ED 09:54
DX: J45.901 Unspecified asthma with (acute) exacerbation (principal); I11.0 Hypertensive heart disease with heart failure; I50.9 Heart failure, unspecified; E11.9 Type 2 diabetes mellitus without complications; M19.91 Primary osteoarthritis, unspecified site; K21.9 Gastro-esophageal reflux disease without esophagitis; F41.9 Anxiety disorder, unspecified; Z79.899 Other long term (current) drug therapy; Z98.890 Other specified postprocedural states; Z98.51 Tubal ligation status; Z88.0 Allergy status to penicillin; Z88.1 Allergy status to other antibiotic agents; Z91.013 Allergy to seafood
CPT/HCPCS: 71045; 93005; 94640; 96374; 99284; J2930; 94644

== ENCOUNTER 2019-09-20 00:34 | Inpatient (IN) | payer MEDICARE ==
[2019-09-20 01:26] LABS: Hematocrit 32.9 % (30.3-42.9); Hemoglobin 10.9 gm/dl (10.1-14.3); Mean Corpuscular HGB Conc 33 % (30-34); Mean Corpuscular Volume 88 fl (79-97); Platelet Count 199 K/mm3 (140-440); Red Blood Count 3.75 M/mm3 (3.65-5.03); Red Cell Distribution Width 14.8 % (13.2-15.2)
[2019-09-20 01:40] LABS: INR 1.54 (0.87-1.13)
[2019-09-20 01:49] LABS: Alanine Aminotransferase 101 units/L (7-56); Albumin 3.9 g/dL (3.9-5); BUN/Creatinine Ratio 12; Blood Urea Nitrogen 13 mg/dL (7-17); Calcium 8.7 mg/dL (8.4-10.2); Hemolysis Index 1
[2019-09-20 03:39] LABS: Bilirubin,Urine NEG (Negative); Blood,Urine NEG (Negative); Color,Urine Straw (Yellow); Hyaline Casts,Urine 2 /LPF; Protein,Urine <15 mg/dL mg/dL (Negative); RBC,Urine < 1.0 /HPF (0.0-6.0); Urobilinogen,Urine < 2.0 mg/dL (<2.0)
[2019-09-20 05:26] LABS: Creatine Kinase MB 6.7 ng/mL (0.0-4.0)
[2019-09-20 06:08] LABS: Chol/HDL Ratio 1.62 %
[2019-09-20 06:15] LABS: Amphetamine Screen,Urine PRESUMPTIVE NEGATIVE; Benzodiazepines Screen,Urine PRESUMPTIVE NEGATIVE; Cannabinoid Screen,Urine PRESUMPTIVE NEGATIVE; Cocaine Screen,Urine PRESUMPTIVE NEGATIVE; Methadone Screen,Urine PRESUMPTIVE NEGATIVE; Opiate Screen,Urine PRESUMPTIVE NEGATIVE
[2019-09-20 13:36] LABS: Creatine Kinase MB 4.8 ng/mL (0.0-4.0)
[2019-09-23 04:47] LABS: Alanine Aminotransferase 64 units/L (7-56); Albumin 3.6 g/dL (3.9-5); BUN/Creatinine Ratio 12; Blood Urea Nitrogen 11 mg/dL (7-17); Calcium 8.9 mg/dL (8.4-10.2); Hemolysis Index 59
[2019-09-24 09:16] VITALS: BP 105/64
== END 2019-09-24 18:22 | disposition home or self-care (01) | DRG 189 ==
LOC: ED 00:34 → 4A 04:34
PROVIDERS: ADMIT Internal Medicine; ATTEND Internal Medicine
PROC: 5A12012 Performance of Cardiac Output, Single, Manual (ICD-10-PCS; principal; 2019-09-20)
DX: J96.00 Acute respiratory failure, unspecified whether with hypoxia or hypercapnia (principal); I46.9 Cardiac arrest, cause unspecified; M62.82 Rhabdomyolysis; G93.40 Encephalopathy, unspecified; R55 Syncope and collapse; Z88.0 Allergy status to penicillin; Z88.1 Allergy status to other antibiotic agents; Z91.013 Allergy to seafood; Z91.018 Allergy to other foods; E11.9 Type 2 diabetes mellitus without complications; I10 Essential (primary) hypertension; J45.909 Unspecified asthma, uncomplicated; K21.9 Gastro-esophageal reflux disease without esophagitis; M19.90 Unspecified osteoarthritis, unspecified site; J44.9 Chronic obstructive pulmonary disease, unspecified; F41.9 Anxiety disorder, unspecified; M81.0 Age-related osteoporosis without current pathological fracture; I25.10 Atherosclerotic heart disease of native coronary artery without angina pectoris
CPT/HCPCS: 36415; 70450; 71045; 71111; 71275; 72125; 80053; 80061; 80307; 80320; 81001; 82140; 82550; 82553; 82962; 83735; 84439; 84443; 84484; 85027; 85379; 85610; 87086; 93005; 93306; 94640; G0378; G0480; J1200; J1630; J1644; J1940; J2060; J7030; Q0177; Q9967

== ENCOUNTER 2019-09-30 23:04 | Emergency (ER) | payer MEDICARE ==
[2019-09-30] MEDS ORDERED: oxyCODONE /ACETAMINOPHEN 5-325MG TAB PO ONE (23:44)
[2019-09-30] MEDS ORDERED: IPRATROPIUM/ALBUTEROL SULFATE 3 ML AMPUL.NEB IH ONE (23:45)
--- NOTE | 2019-09-30 23:50 | Emergency Department Report ---
ED Shortness of Breath HPI - General Stated Complaint: SHRUTHI Time Seen by Provider: 09/30/19 23:21 Source: EMS, old records reviewed Mode of arrival: Ambulatory Limitations: No Limitations - History of Present Illness Initial Comments: 54-year-old female with a past medical history of COPD (not currently on home O2), asthma, intubations x8, heart murmur, anxiety, CHF, diabetes, and hypertension presents to the hospital planing of sudden onset of shortness of breath this evening. Symptoms started after taking prednisone. Patient was feeling short of breath, lightheaded, breathing fast, some wheezing, flushed face feeling, and lightheadedness. She tried a breathing treatment without improvement. Patient feels like the symptoms were due to anxiety attack. Patient has had similar symptoms secondary to anxiety in the past. She is not currently on any anxiety medication but she has been on meds in the past. She is awaiting follow-up with her doctor for an anxiety medication prescription. Patient was recently admitted to the hospital here 09/19 and discharged on September 22. Apparently patient had a brief outpatient cardiopulmonary arrest after exposure to chemical fumes. Pt was not intubated during that admission. She has continued to have reproducible anterior chest wall pain since CPR was performed. She complains of reproducible anterior chest wall pain at this time. During her recent hospitalization she had a unremarkable CT cervical spine, CTA chest with no pulmonary embolism, CT head noncontrast without acute findings, negative chest x-ray, echo showing EF of 45 to 50% with mild to moderate MR, and chest x- ray without bony injury. Patient states she is chronically on prednisone 5 mg daily and currently taking a prednisone taper with last dose 10 mg to be taken tomorrow. Patient saw her mobility specialist Dr. Stokes today who told her her heart was fine and she needs to follow-up with her tile grader. PMD Dr Baumann. - Related Data Previous Rx's Medication Instructions Recorded Last Taken Type Gabapentin 300 mg PO Q8HR #90 capsule 07/07/19 2 Days Ago Rx ~09/19/19 Ipratropium/Albuterol Sulfate 1 ampul IH Q4HR #1 box 07/07/19 2 Days Ago Rx [DUONEB *Not for PRN Use*] ~09/19/19 diazePAM TAB [Valium] 2 mg PO TID PRN #10 tablet 07/07/19 2 Days Ago Rx ~09/19/19 lisinopriL [Zestril TAB] 20 mg PO QDAY #30 07/07/19 2 Days Ago Rx ~09/19/19 metFORMIN [Glucophage] 500 mg PO BID #60 07/07/19 2 Days Ago Rx ~09/19/19 Montelukast [Singulair] 10 mg PO QHS #30 tablet 07/27/19 2 Days Ago Rx ~09/19/19 Albuterol Sulfate [Proair 90 mcg IH Q4HR #1 aer.pw.bas 09/24/19 Unknown Rx Digihaler] Aspirin [Aspirin BABY CHEW TAB] 81 mg PO QDAY #30 tab.chew 09/24/19 Unknown Rx Fluticasone/Salmeterol [Advair 1 puff IH BID #1 disk.w.dev 09/24/19 Unknown Rx Diskus 250-50 mcg] Furosemide [Lasix TAB] 20 mg PO DAILY@0600 #30 tablet 09/24/19 Unknown Rx HYDROcodone/APAP 5-325 [[place] 1 each PO Q6HR PRN #7 tablet 09/24/19 Unknown Rx 5-325 mg TAB] Prednisone [predniSONE 5 mg (6-Day 5 mg PO .TAPER #1 tab.ds.pk 09/24/19 Unknown Rx Pack, 21 Tabs)] guaiFENesin DM [Guaifenesin Dm 10 ml PO Q8HR 10 Days oral.liqd 09/24/19 Unknown Rx Syrup] oxyCODONE /ACETAMINOPHEN [Percocet 1 tab PO Q6HR PRN #10 tablet 10/01/19 Unknown Rx 5/325] Allergies Allergy/AdvReac Type Severity Reaction Status Date / Time amoxicillin Allergy Anaphylaxis Verified 03/29/19 00:50 Penicillins Allergy Rash Verified 07/25/17 08:05 seafood Allergy Severe Anaphylaxis Uncoded 03/16/17 01:08 peanuts Allergy Anaphylaxis Uncoded 09/20/19 12:06 ED Review of Systems ROS: Stated complaint: SHRUTHI Other details as noted in HPI Comment: All other systems reviewed and negative ED Past Medical Hx - Past Medical History Hx Hypertension: Yes Hx Heart Attack/AMI: No Hx Congestive Heart Failure: Yes Hx Diabetes: Yes Hx Pulmonary Embolism: No Hx GERD: Yes Hx Liver Disease: No Hx Renal Disease: No Hx Sickle Cell Disease: No Hx Arthritis: Yes Hx Headaches / Migraines: No Hx Seizures: No Hx Kidney Stones: No Hx Psychiatric Treatment: Yes (Anxiety) Hx Asthma: Yes Hx COPD: Yes Hx Tuberculosis: No Hx HIV: No Additional medical history: Intubated x 8. heart murmur. osteoporosis. hearing loss in [place] - Surgical History Hx Coronary Stent: No Hx Open Heart Surgery: No Hx Pacemaker: No Hx Internal Defibrillator: No Hx Cholecystectomy: No Hx Appendectomy: No Hx Breast Surgery: No Additional Surgical History: cataracts, nasal surg, tubal ligation. bilateral foot. Left shoulder surgery, R. knee sx - Social History Smoking Status: Never Smoker - Medications Home Medications: Home Medications Medication Instructions Recorded Confirmed Last Taken Type Gabapentin 300 mg PO Q8HR #90 capsule 07/07/19 09/21/19 2 Days Ago Rx ~09/19/19 Ipratropium/Albuterol Sulfate 1 ampul IH Q4HR #1 box 07/07/19 09/21/19 2 Days Ago Rx [DUONEB *Not for PRN Use*] ~09/19/19 diazePAM TAB [Valium] 2 mg PO TID PRN #10 tablet 07/07/19 09/21/19 2 Days Ago Rx ~09/19/19 lisinopriL [Zestril TAB] 20 mg PO QDAY #30 07/07/19 09/21/19 2 Days Ago Rx ~09/19/19 metFORMIN [Glucophage] 500 mg PO BID #60 07/07/19 09/21/19 2 Days Ago Rx ~09/19/19 Montelukast [Singulair] 10 mg PO QHS #30 tablet 07/27/19 09/21/19 2 Days Ago Rx ~09/19/19 Albuterol Sulfate [Proair 90 mcg IH Q4HR #1 aer.pw.bas 09/24/19 Unknown Rx Digihaler] Aspirin [Aspirin BABY CHEW TAB] 81 mg PO QDAY #30 tab.chew 09/24/19 Unknown Rx Fluticasone/Salmeterol [Advair 1 puff IH BID #1 disk.w.dev 09/24/19 Unknown Rx Diskus 250-50 mcg] Furosemide [Lasix TAB] 20 mg PO DAILY@0600 #30 tablet 09/24/19 Unknown Rx HYDROcodone/APAP 5-325 [[place] 1 each PO Q6HR PRN #7 tablet 09/24/19 Unknown Rx 5-325 mg TAB] Prednisone [predniSONE 5 mg (6-Day 5 mg PO .TAPER #1 tab.ds.pk 09/24/19 Unknown Rx Pack, 21 Tabs)] guaiFENesin DM [Guaifenesin Dm 10 ml PO Q8HR 10 Days oral.liqd 09/24/19 Unknown Rx Syrup] oxyCODONE /ACETAMINOPHEN [Percocet 1 tab PO Q6HR PRN #10 tablet 10/01/19 Unknown Rx 5/325] ED Physical Exam - Other Other exam information: General: No acute distress Head: Atraumatic Eyes: normal appearance ENT: Moist mucous membranes Neck: Normal appearance, no midline tenderness Chest: Clear to auscultation bilaterally, reproducible anterior chest wall tenderness CV: Regular rate and rhythm Abdomen: Soft, normal bowel sounds, nontender, nondistended, no rebound or guarding Back: Normal inspection Extremity: Normal inspection, full range of motion, no calf tenderness or leg edema Neuro: Alert O x 3, no facial asymmetry, speech clear, no gross motor sensory deficit Psych: Appropriate behavior Skin: No rash ED Course Vital Signs 10/01/19 10/01/19 10/01/19 00:07 00:11 00:32 Temperature 99.2 F Pulse Rate 90 Pulse Rate [ 90 Anterior Bilateral Throughout] Respiratory 20 20 Rate Respiratory 15 Rate [Anterior Bilateral Throughout] Blood Pressure 95/60 [Right] O2 Sat by Pulse 98 Oximetry 10/01/19 01:00 Temperature Pulse Rate 96 H Pulse Rate [ Anterior Bilateral Throughout] Respiratory 20 Rate Respiratory Rate [Anterior Bilateral Throughout] Blood Pressure 102/70 [Right] O2 Sat by Pulse 97 Oximetry - Reevaluation(s) Reevaluation #1: 10/01/19 00:00 room air sat 97% - Consultations Consultation #1: 10/01/19 00:52 new mild renal insuf discussed with Dr Ellis and sergio of 5.1, follow up advised. ED Medical Decision Making - Lab Data Result diagrams: 09/30/19 23:57 09/30/19 23:57 Lab Results 09/30/19 09/30/19 Range/Units 23:57 23:57 WBC 6.3 (4.5-11.0) K/mm3 RBC 3.90 (3.65-5.03) M/mm3 Hgb 11.5 (10.1-14.3) gm/dl Hct 34.9 (30.3-42.9) % MCV 89 (79-97) fl MCH 29 (28-32) pg MCHC 33 (30-34) % RDW 14.8 (13.2-15.2) % Plt Count 328 (140-440) K/mm3 Lymph % (Auto) 31.5 (13.4-35.0) % [place] % (Auto) 8.1 H (0.0-7.3) % Eos % (Auto) 1.0 (0.0-4.3) % Baso % (Auto) 0.6 (0.0-1.8) % Lymph # 2.0 (1.2-5.4) K/mm3 [place]field # 0.5 (0.0-0.8) K/mm3 Eos # 0.1 (0.0-0.4) K/mm3 Baso # 0.0 (0.0-0.1) K/mm3 Seg Neutrophils % 58.8 (40.0-70.0) % Seg Neutrophils # 3.7 (1.8-7.7) K/mm3 Sodium 137 (137-145) mmol/L Potassium 5.1 H (3.6-5.0) mmol/L Chloride 98.7 (98-107) mmol/L Carbon Dioxide 27 (22-30) mmol/L Anion Gap 16 mmol/L BUN 25 H (7-17) mg/dL Creatinine 1.4 H (0.7-1.2) mg/dL Estimated GFR 47 ml/min BUN/Creatinine Ratio 18 % Glucose 103 H (65-100) mg/dL Calcium 9.4 (8.4-10.2) mg/dL NT-Pro-B Natriuret Pep 55.91 (0-900) pg/mL - EKG Data -: EKG Interpreted by Nv EKG shows normal: sinus rhythm, ST-T waves (no stemi) Rate: normal (86) - EKG Data When compared to previous EKG there are: no significant change - Radiology Data Radiology results: report reviewed CHEST 1 VIEW 09/30/2019 11:44 PM INDICATION / CLINICAL INFORMATION: sob. COMPARISON: Chest x-ray 09/22/2019 FINDINGS: SUPPORT DEVICES: None. HEART / MEDIASTINUM: No significant abnormality. LUNGS / PLEURA: No significant pulmonary or pleural abnormality. No pneumothorax. ADDITIONAL FINDINGS: No significant additional findings. IMPRESSION: 1. No acute findings. - Medical Decision Making pt with anxiety attack with clear lungs upon arrival and room air sat of 97%. Patient has persistant chest wall pain since chest compressions during recent admission. Pt provided a duo neb and percocet for pain and resting comfortably. mild renal insuf/dehydration noted. IVF not provided due to hx of chf. pt has very mild hyperkalemia (5.1). case dw Dr Ellis current meds to be continued and outpt nephrology visit advised. pt will be d/ce home with pain meds for msk chest wall pain and advised to f/u with pulmonolgist as planned and pmd. ut prescription drug monitioring site reviewed 09/24/2019 1 09/24/2019 HYDROCODONE-ACETAMIN 5-325 MG 7.0 3 AM KO [id number] [facility] ([id number]) 0 11.67 [place] 09/03/2019 1 09/03/2019 HYDROCODONE-ACETAMIN 5-325 MG 7.0 3 JU ALI [id number] [facility] ([id number]) 0 11.67 [place] 07/07/2019 2 07/07/2019 DIAZEPAM 2 MG TABLET 10.0 3 RE ELICEO [id number] [facility] ([id number]) 0 [place] 06/05/2019 1 06/05/2019 TRAMADOL HCL ER 150 MG CAPSULE 60.0 30 SMI 1 [id number] [facility] ([id number]) 0 30.0 MME [employer] [place] 06/05/2019 1 06/05/2019 PREGABALIN 75 MG CAPSULE 60.0 30 SMI [id number] [facility] ([id number]) 0 [place] 05/08/2019 2 05/06/2019 HYDROCODONE-ACETAMIN 5-325 MG 12.0 4 [facility] [id number] [place] ([id number]) 0 15.0 [place] 03/31/2019 2 03/29/2019 DIAZEPAM 2 MG TABLET 10.0 3 RE ELICEO [id number] [facility] ([id number]) 0 Medicare last prescribed 3 day dose of norco 5 on 09/23 and last prescibed diazepam in june pt drowy after percocet 10 in ED no further anxiety in the ed pt states she vomited after taking the norco prescribed after d/c therefore has been taking tylenol only percocet will be prescribed for pain pt encouraged to f/u with her PMD Dr Baumann at 10am as schedule to address her chronic intermittent anxiety concerns. pt received 500ml NS prior to d/c Explained that patient cannot be discharged with supplemental oxygen as his PO2 on room air has remained 97%. Critical Care Time: No Critical care attestation.: If time is entered above; I have spent that time in minutes in the direct care of this critically ill patient, excluding procedure time. ED Disposition Clinical Impression: Anxiety, Chest wall pain, Mild renal insufficiency, COPD (chronic obstructive pulmonary disease) Disposition: TO HOME OR SELFCARE Is pt being admited?: No Does the pt Need Aspirin: No Condition: Critical Instructions: Costochondritis (ED), Chronic Obstructive Pulmonary Disease (ED), Impaired Kidney Function (ED) Additional Instructions: Take the medication as prescribed. Follow-up with your doctor or doctor/clinic provided. Return if symptoms worsen as indicated by your discharge instructions. Take the copy of your labs provided to your doctor in the morning for follow-up. Follow-up with a lung specialist and a kidney specialist. Return if symptoms worsen as indicated by your discharge instructions. Prescriptions: oxyCODONE /ACETAMINOPHEN [Percocet 5/325] 1 tab PO Q6HR PRN #10 tablet PRN Reason: Pain Referrals: PRIMARY CAREMD [Primary Care Provider] - 3-5 Days JASMYNE ELLIS MD [Staff Physician] - 3-5 Days (breaker up machine operator ) CHANG DAVIS MD [Staff Physician] - 3-5 Days (tile grader/lung doctor ) RON BAUMANN MD [Staff Physician] - 10/01/19 (as scheduled today)
--- NOTE | 2019-10-01 00:22 | XRay Report ---
CHEST 1 VIEW 09/30/2019 11:44 PM INDICATION / CLINICAL INFORMATION: sob. COMPARISON: Chest x-ray 09/22/2019 FINDINGS: SUPPORT DEVICES: None. HEART / MEDIASTINUM: No significant abnormality. LUNGS / PLEURA: No significant pulmonary or pleural abnormality. No pneumothorax. ADDITIONAL FINDINGS: No significant additional findings. IMPRESSION: 1. No acute findings. Signer Name: Adalid Payne MD Signed: 10/01/2019 12:17 AM Workstation Name: [id number]
[2019-10-01 00:27] LABS: Basophils % (Auto) 0.6 % (0.0-1.8); Eosinophils # (Auto) 0.1 K/mm3 (0.0-0.4); Hematocrit 34.9 % (30.3-42.9); Hemoglobin 11.5 gm/dl (10.1-14.3); Lymphocytes % (Auto) 31.5 % (13.4-35.0); Mean Corpuscular HGB Conc 33 % (30-34); Mean Corpuscular Volume 89 fl (79-97); Monocytes # (Auto) 0.5 K/mm3 (0.0-0.8); Monocytes % (Auto) 8.1 % (0.0-7.3); Platelet Count 328 K/mm3 (140-440); Red Cell Distribution Width 14.8 % (13.2-15.2)
[2019-10-01 00:41] LABS: Calcium 9.4 mg/dL (8.4-10.2)
[2019-10-01] MEDS ORDERED: SODIUM CHLORIDE 0.9% 500 ML 500 ML IV ONE (01:28)
[2019-10-01 03:49] VITALS: BP 143/81
== END 2019-10-01 05:07 | disposition home or self-care (01) ==
LOC: ED 23:04
DX: F41.9 Anxiety disorder, unspecified (principal); R07.89 Other chest pain; R42 Dizziness and giddiness; N28.9 Disorder of kidney and ureter, unspecified; J44.1 Chronic obstructive pulmonary disease with (acute) exacerbation; I11.0 Hypertensive heart disease with heart failure; I50.9 Heart failure, unspecified; E11.9 Type 2 diabetes mellitus without complications; K21.9 Gastro-esophageal reflux disease without esophagitis; Z98.51 Tubal ligation status; Z98.890 Other specified postprocedural states; Z79.82 Long term (current) use of aspirin; Z88.8 Allergy status to other drugs, medicaments and biological substances; Z88.0 Allergy status to penicillin
CPT/HCPCS: 36415; 71045; 80048; 83880; 85025; 93005; 94640; 99284; J7040; 94644; 96360; 96361

== ENCOUNTER 2019-10-11 12:09 | Outpatient (CLI) | payer MEDICARE | END 2019-10-11 12:10 | disposition home or self-care (01) | LOC: LAB 12:09 | PROVIDERS: ATTEND Internal Medicine | DX: J45.909 Unspecified asthma, uncomplicated (principal); R05 Cough; R06.02 Shortness of breath | CPT/HCPCS: 36415; 82785; 86003 ==

== ENCOUNTER 2020-01-02 15:51 | Emergency (ER) | payer MEDICARE ==
[2020-01-02 16:12] VITALS: BP 151/76
[2020-01-02] MEDS ORDERED: traMADol 50 MG TAB PO ONE (20:30)
--- NOTE | 2020-01-02 20:54 | XRay Report ---
LEFT FOOT 3 VIEWS INDICATION / CLINICAL INFORMATION: foot pain blunt trauma non weight bearing. COMPARISON: None available. FINDINGS: Moderate degenerative change in the first metatarsophalangeal joint. No other significant skeletal ab normality. Signer Name: Gene Flores MD FACRebeca Signed: 01/02/2020 8:49 PM Workstation Name: [id number]
--- NOTE | 2020-01-02 21:27 | Emergency Department Report ---
ED Lower Extremity HPI - General Chief Complaint: Fall Stated Complaint: LFT FOOT PAIN Time Seen by Provider: 01/02/20 20:27 Source: patient Mode of arrival: Wheelchair Limitations: No Limitations - History of Present Illness Initial Comments: Patient is a 54-year-old -Nepalese female who presents for left foot pain. States cinderblock tipped over striking her left foot yesterday. Now with bruising and swelling same. Patient is partial weightbearing. There is minor swelling no obvious deformity there is no bleeding no laceration. Pain described at 4/10 aching constant. Pain is relieved by offloading and rest. Patient denies numbness or tingling. Complaint: foot injury - Related Data Previous Rx's Medication Instructions Recorded Last Taken Type Gabapentin 300 mg PO Q8HR #90 capsule 07/07/19 2 Days Ago Rx ~09/19/19 Ipratropium/Albuterol Sulfate 1 ampul IH Q4HR #1 box 07/07/19 2 Days Ago Rx [DUONEB *Not for PRN Use*] ~09/19/19 diazePAM TAB [Valium] 2 mg PO TID PRN #10 tablet 07/07/19 2 Days Ago Rx ~09/19/19 lisinopriL [Zestril TAB] 20 mg PO QDAY #30 07/07/19 2 Days Ago Rx ~09/19/19 metFORMIN [Glucophage] 500 mg PO BID #60 07/07/19 2 Days Ago Rx ~09/19/19 Montelukast [Singulair] 10 mg PO QHS #30 tablet 07/27/19 2 Days Ago Rx ~09/19/19 Albuterol Sulfate [Proair 90 mcg IH Q4HR #1 aer.pw.bas 09/24/19 Unknown Rx Digihaler] Aspirin [Aspirin BABY CHEW TAB] 81 mg PO QDAY #30 tab.chew 09/24/19 Unknown Rx Fluticasone/Salmeterol [Advair 1 puff IH BID #1 disk.w.dev 09/24/19 Unknown Rx Diskus 250-50 mcg] Furosemide [Lasix TAB] 20 mg PO DAILY@0600 #30 tablet 09/24/19 Unknown Rx HYDROcodone/APAP 5-325 [Wiggins 1 each PO Q6HR PRN #7 tablet 09/24/19 Unknown Rx 5-325 mg TAB] Prednisone [predniSONE 5 mg (6-Day 5 mg PO .TAPER #1 tab.ds.pk 09/24/19 Unknown Rx Pack, 21 Tabs)] guaiFENesin DM [Guaifenesin Dm 10 ml PO Q8HR 10 Days oral.liqd 09/24/19 Unknown Rx Syrup] oxyCODONE /ACETAMINOPHEN [Percocet 1 tab PO Q6HR PRN #10 tablet 10/01/19 Unknown Rx 5/325] diazePAM TAB [Valium] 2 mg PO TID PRN #10 tablet 10/02/19 Unknown Rx Bacitracin Zinc Oint [Antibiotic 1 applicatio TP BID 7 Days #1 tube 01/02/20 Unknown Rx Oint] traMADoL [Ultram] 50 mg PO Q6HR PRN #12 tablet 01/02/20 Unknown Rx Allergies Allergy/AdvReac Type Severity Reaction Status Date / Time amoxicillin Allergy Anaphylaxis Verified 03/29/19 00:50 Penicillins Allergy Rash Verified 07/25/17 08:05 seafood Allergy Severe Anaphylaxis Uncoded 03/16/17 01:08 peanuts Allergy Anaphylaxis Uncoded 09/20/19 12:06 ED Review of Systems ROS: Stated complaint: LFT FOOT PAIN Other details as noted in HPI Constitutional: denies: chills, fever Eyes: denies: eye pain, eye discharge, vision change ENT: denies: ear pain, throat pain Respiratory: denies: cough, shortness of breath, wheezing Cardiovascular: denies: chest pain, palpitations Endocrine: no symptoms reported Gastrointestinal: denies: abdominal pain, nausea, diarrhea Genitourinary: denies: urgency, dysuria, discharge Musculoskeletal: other (foot pain ) Skin: denies: rash, lesions Neurological: denies: headache, weakness, paresthesias Psychiatric: denies: anxiety, depression Hematological/Lymphatic: denies: easy bleeding, easy bruising ED Past Medical Hx - Past Medical History Previous Medical History?: Yes Hx Hypertension: Yes Hx Heart Attack/AMI: No Hx Congestive Heart Failure: Yes Hx Diabetes: Yes Hx Pulmonary Embolism: No Hx GERD: Yes Hx Liver Disease: No Hx Renal Disease: No Hx Sickle Cell Disease: No Hx Arthritis: Yes Hx Headaches / Migraines: No Hx Seizures: No Hx Kidney Stones: No Hx Psychiatric Treatment: Yes (Anxiety) Hx Asthma: Yes Hx COPD: Yes Hx Tuberculosis: No Hx HIV: No Additional medical history: Intubated x 8. heart murmur. osteoporosis. hearing loss in [place] - Surgical History Hx Coronary Stent: No Hx Open Heart Surgery: No Hx Pacemaker: No Hx Internal Defibrillator: No Hx Cholecystectomy: No Hx Appendectomy: No Hx Breast Surgery: No Additional Surgical History: cataracts, nasal surg, tubal ligation. bilateral foot. Left shoulder surgery, R. knee sx - Social History Smoking Status: Never Smoker Substance Use Type: None - Medications Home Medications: Home Medications Medication Instructions Recorded Confirmed Last Taken Type Gabapentin 300 mg PO Q8HR #90 capsule 07/07/19 09/21/19 2 Days Ago Rx ~09/19/19 Ipratropium/Albuterol Sulfate 1 ampul IH Q4HR #1 box 07/07/19 09/21/19 2 Days Ago Rx [DUONEB *Not for PRN Use*] ~09/19/19 diazePAM TAB [Valium] 2 mg PO TID PRN #10 tablet 07/07/19 09/21/19 2 Days Ago Rx ~09/19/19 lisinopriL [Zestril TAB] 20 mg PO QDAY #30 07/07/19 09/21/19 2 Days Ago Rx ~09/19/19 metFORMIN [Glucophage] 500 mg PO BID #60 07/07/19 09/21/19 2 Days Ago Rx ~09/19/19 Montelukast [Singulair] 10 mg PO QHS #30 tablet 07/27/19 09/21/19 2 Days Ago Rx ~09/19/19 Albuterol Sulfate [Proair 90 mcg IH Q4HR #1 aer.pw.bas 09/24/19 Unknown Rx Digihaler] Aspirin [Aspirin BABY CHEW TAB] 81 mg PO QDAY #30 tab.chew 09/24/19 Unknown Rx Fluticasone/Salmeterol [Advair 1 puff IH BID #1 disk.w.dev 09/24/19 Unknown Rx Diskus 250-50 mcg] Furosemide [Lasix TAB] 20 mg PO DAILY@0600 #30 tablet 09/24/19 Unknown Rx HYDROcodone/APAP 5-325 [Wiggins 1 each PO Q6HR PRN #7 tablet 09/24/19 Unknown Rx 5-325 mg TAB] Prednisone [predniSONE 5 mg (6-Day 5 mg PO .TAPER #1 tab.ds.pk 09/24/19 Unknown Rx Pack, 21 Tabs)] guaiFENesin DM [Guaifenesin Dm 10 ml PO Q8HR 10 Days oral.liqd 09/24/19 Unknown Rx Syrup] oxyCODONE /ACETAMINOPHEN [Percocet 1 tab PO Q6HR PRN #10 tablet 10/01/19 Unknown Rx 5/325] diazePAM TAB [Valium] 2 mg PO TID PRN #10 tablet 10/02/19 Unknown Rx Bacitracin Zinc Oint [Antibiotic 1 applicatio TP BID 7 Days #1 tube 01/02/20 Unknown Rx Oint] traMADoL [Ultram] 50 mg PO Q6HR PRN #12 tablet 01/02/20 Unknown Rx ED Physical Exam - General Limitations: No Limitations General appearance: alert, in no apparent distress - Head Head exam: Present: atraumatic, normocephalic - Eye Eye exam: Present: normal appearance - ENT ENT exam: Present: mucous membranes moist - Neck Neck exam: Present: normal inspection - Respiratory Respiratory exam: Present: normal lung sounds bilaterally. Absent: respiratory distress, wheezes, stridor, chest wall tenderness - Cardiovascular Cardiovascular Exam: Present: regular rate, normal rhythm, normal heart sounds. Absent: systolic murmur, diastolic murmur, rubs, gallop - GI/Abdominal GI/Abdominal exam: Present: soft, normal bowel sounds - Rectal Rectal exam: Present: deferred - Extremities Exam Extremities exam: Present: full ROM, tenderness (left medial dorsal mid foot ) - Expanded Lower Extremity Exam Left Foot/Toe exam: Present: tenderness, swelling, abrasion. Absent: laceration, ecchymosis, deformity, crepidus, dislocation, erythema, amputation, puncture wound, foreign body, calcaneal tenderness, tenderness at base of 5th metatarsal, nail avulsion, subungual hematoma Neuro vascular tendon exam: Absent: pulse deficit, motor deficit, sensory deficit, tendon deficit Gait: Positive: observed and limited by pain - Back Exam Back exam: Present: normal inspection, full ROM. Absent: tenderness - Neurological Exam Neurological exam: Present: alert, oriented X3, reflexes normal. Absent: motor sensory deficit - Psychiatric Psychiatric exam: Present: normal affect, normal mood - Skin Skin exam: Present: warm, dry, intact, normal color. Absent: rash ED Course Vital Signs 01/02/20 16:06 Temperature 98.2 F Pulse Rate 78 Respiratory 20 Rate Blood Pressure 151/76 O2 Sat by Pulse 99 Oximetry ED Lower Extremity MDM - Radiology Data Radiology results: report reviewed, image reviewed Findings Reporting MD: Gene Flores Dictation Time: January 02, 2020 19:49 Gear Setter: Not available Surface Grinder Date: LEFT FOOT 3 VIEWS INDICATION / CLINICAL INFORMATION: foot pain blunt trauma non weight bearing. COMPARISON: None available. FINDINGS: Moderate degenerative change in the first metatarsophalangeal joint. No other significant skeletal abnormality. Signer Name: Gene Flores MD FACR Signed: 01/02/2020 7:49 PM Workstation Name: [id number] - Medical Decision Making X-ray negative for fracture noted moderate degenerative changes. This is likely foot sprain. Plan NSAIDs Evan wrap rice therapy Ortho shoe. Patient will follow-up with PCP in 2 to 3 days. Foot care as directed. Patient verbalizes agreement and understanding with discharge pain. Patient DC'd home in stable condition at this time. pt demonstrates safe use of ortho shoe, is ambulatory with same at this time. Critical care attestation.: If time is entered above; I have spent that time in minutes in the direct care of this critically ill patient, excluding procedure time. ED Disposition Clinical Impression: Foot sprain Qualifiers: Encounter type: initial encounter Laterality: left Qualified Code(s): S93.602A - Unspecified sprain of left foot, initial encounter Disposition: DC-01 TO HOME OR SELFCARE Is pt being admited?: No Does the pt Need Aspirin: No Condition: Stable Instructions: Foot Sprain (ED) Prescriptions: Bacitracin Zinc Oint [Antibiotic Oint] 1 applicatio TP BID 7 Days #1 tube traMADoL [Ultram] 50 mg PO Q6HR PRN #12 tablet PRN Reason: Pain Referrals: ALAINA PRUETT MD [Primary Care Provider] - 3-5 Days Forms: Work/School Release Form(ED) Time of Disposition: 21:30
== END 2020-01-02 22:00 | disposition home or self-care (01) ==
LOC: ED 15:51
DX: S93.602A Unspecified sprain of left foot, initial encounter (principal); I50.9 Heart failure, unspecified; I11.0 Hypertensive heart disease with heart failure; E11.9 Type 2 diabetes mellitus without complications; K21.9 Gastro-esophageal reflux disease without esophagitis; M19.91 Primary osteoarthritis, unspecified site; F41.9 Anxiety disorder, unspecified; J44.9 Chronic obstructive pulmonary disease, unspecified; Z98.51 Tubal ligation status; Z98.890 Other specified postprocedural states; Z79.84 Long term (current) use of oral hypoglycemic drugs; Z79.899 Other long term (current) drug therapy; Z88.1 Allergy status to other antibiotic agents; Z88.0 Allergy status to penicillin; Z91.013 Allergy to seafood; W18.40XA Slipping, tripping and stumbling without falling, unspecified, initial encounter; Y93.89 Activity, other specified; Y92.89 Other specified places as the place of occurrence of the external cause; Y99.8 Other external cause status

== ENCOUNTER 2020-01-04 14:32 | Emergency (ER) | payer MEDICARE ==
[2020-01-04] MEDS ORDERED: ALBUTEROL 2.5 MG/3 ML NEBU IH ONE (19:23)
--- NOTE | 2020-01-04 19:29 | Emergency Department Report ---
ED General Adult HPI - General Chief complaint: Anxiety Stated complaint: ANXIETY Time Seen by Provider: 01/04/20 19:15 Source: patient Mode of arrival: Wheelchair Limitations: No Limitations - History of Present Illness Initial comments: 54-year-old -Portuguese female presents to the emergency room reporting that she is having anxiety attack and feels that she is dehydrated. She also complains of chest tightness and difficulty moving air. Patient reports she has a past medical history of arthritis, asthma, congestive heart failure, COPD, maura betes and GERD. She also has a past medical history of anxiety has been intubated 8 times, has a heart murmur hearing loss in the left ear. Patient was recently seen here 2 days ago. -: This afternoon - Related Data Previous Rx's Medication Instructions Recorded Last Taken Type Gabapentin 300 mg PO Q8HR #90 capsule 07/07/19 2 Days Ago Rx ~09/19/19 Ipratropium/Albuterol Sulfate 1 ampul IH Q4HR #1 box 07/07/19 2 Days Ago Rx [DUONEB *Not for PRN Use*] ~09/19/19 diazePAM TAB [Valium] 2 mg PO TID PRN #10 tablet 07/07/19 2 Days Ago Rx ~09/19/19 lisinopriL [Zestril TAB] 20 mg PO QDAY #30 07/07/19 2 Days Ago Rx ~09/19/19 metFORMIN [Glucophage] 500 mg PO BID #60 07/07/19 2 Days Ago Rx ~09/19/19 Montelukast [Singulair] 10 mg PO QHS #30 tablet 07/27/19 2 Days Ago Rx ~09/19/19 Albuterol Sulfate [Proair 90 mcg IH Q4HR #1 aer.pw.bas 09/24/19 Unknown Rx Digihaler] Aspirin [Aspirin BABY CHEW TAB] 81 mg PO QDAY #30 tab.chew 09/24/19 Unknown Rx Fluticasone/Salmeterol [Advair 1 puff IH BID #1 disk.w.dev 09/24/19 Unknown Rx Diskus 250-50 mcg] Furosemide [Lasix TAB] 20 mg PO DAILY@0600 #30 tablet 09/24/19 Unknown Rx HYDROcodone/APAP 5-325 [Orma 1 each PO Q6HR PRN #7 tablet 09/24/19 Unknown Rx 5-325 mg TAB] Prednisone [predniSONE 5 mg (6-Day 5 mg PO .TAPER #1 tab.ds.pk 09/24/19 Unknown Rx Pack, 21 Tabs)] guaiFENesin DM [Guaifenesin Dm 10 ml PO Q8HR 10 Days oral.liqd 09/24/19 Unknown Rx Syrup] oxyCODONE /ACETAMINOPHEN [Percocet 1 tab PO Q6HR PRN #10 tablet 10/01/19 Unknown Rx 5/325] diazePAM TAB [Valium] 2 mg PO TID PRN #10 tablet 10/02/19 Unknown Rx Bacitracin Zinc Oint [Antibiotic 1 applicatio TP BID 7 Days #1 tube 01/02/20 Unknown Rx Oint] traMADoL [Ultram] 50 mg PO Q6HR PRN #12 tablet 01/02/20 Unknown Rx Allergies Allergy/AdvReac Type Severity Reaction Status Date / Time amoxicillin Allergy Anaphylaxis Verified 03/29/19 00:50 Penicillins Allergy Rash Verified 07/25/17 08:05 seafood Allergy Severe Anaphylaxis Uncoded 03/16/17 01:08 peanuts Allergy Anaphylaxis Uncoded 09/20/19 12:06 ED Review of Systems ROS: Stated complaint: ANXIETY Other details as noted in HPI Comment: All other systems reviewed and negative ED Past Medical Hx - Past Medical History Previous Medical History?: Yes Hx Hypertension: Yes Hx Heart Attack/AMI: No Hx Congestive Heart Failure: Yes Hx Diabetes: Yes Hx Pulmonary Embolism: No Hx GERD: Yes Hx Liver Disease: No Hx Renal Disease: No Hx Sickle Cell Disease: No Hx Arthritis: Yes Hx Headaches / Migraines: No Hx Seizures: No Hx Kidney Stones: No Hx Psychiatric Treatment: Yes (Anxiety) Hx Asthma: Yes Hx COPD: Yes Hx Tuberculosis: No Hx HIV: No Additional medical history: Intubated x 8. heart murmur. osteoporosis. hearing loss in [place] - Surgical History Past Surgical History?: Yes Hx Coronary Stent: No Hx Open Heart Surgery: No Hx Pacemaker: No Hx Internal Defibrillator: No Hx Cholecystectomy: No Hx Appendectomy: No Hx Breast Surgery: No Additional Surgical History: cataracts, nasal surg, tubal ligation. bilateral foot. Left shoulder surgery, R. knee sx - Social History Smoking Status: Never Smoker Substance Use Type: None - Medications Home Medications: Home Medications Medication Instructions Recorded Confirmed Last Taken Type Gabapentin 300 mg PO Q8HR #90 capsule 07/07/19 09/21/19 2 Days Ago Rx ~09/19/19 Ipratropium/Albuterol Sulfate 1 ampul IH Q4HR #1 box 07/07/19 09/21/19 2 Days Ago Rx [DUONEB *Not for PRN Use*] ~09/19/19 diazePAM TAB [Valium] 2 mg PO TID PRN #10 tablet 07/07/19 09/21/19 2 Days Ago Rx ~09/19/19 lisinopriL [Zestril TAB] 20 mg PO QDAY #30 07/07/19 09/21/19 2 Days Ago Rx ~09/19/19 metFORMIN [Glucophage] 500 mg PO BID #60 07/07/19 09/21/19 2 Days Ago Rx ~09/19/19 Montelukast [Singulair] 10 mg PO QHS #30 tablet 07/27/19 09/21/19 2 Days Ago Rx ~09/19/19 Albuterol Sulfate [Proair 90 mcg IH Q4HR #1 aer.pw.bas 09/24/19 Unknown Rx Digihaler] Aspirin [Aspirin BABY CHEW TAB] 81 mg PO QDAY #30 tab.chew 09/24/19 Unknown Rx Fluticasone/Salmeterol [Advair 1 puff IH BID #1 disk.w.dev 09/24/19 Unknown Rx Diskus 250-50 mcg] Furosemide [Lasix TAB] 20 mg PO DAILY@0600 #30 tablet 09/24/19 Unknown Rx HYDROcodone/APAP 5-325 [Orma 1 each PO Q6HR PRN #7 tablet 09/24/19 Unknown Rx 5-325 mg TAB] Prednisone [predniSONE 5 mg (6-Day 5 mg PO .TAPER #1 tab.ds.pk 09/24/19 Unknown Rx Pack, 21 Tabs)] guaiFENesin DM [Guaifenesin Dm 10 ml PO Q8HR 10 Days oral.liqd 09/24/19 Unknown Rx Syrup] oxyCODONE /ACETAMINOPHEN [Percocet 1 tab PO Q6HR PRN #10 tablet 10/01/19 Unknown Rx 5/325] diazePAM TAB [Valium] 2 mg PO TID PRN #10 tablet 10/02/19 Unknown Rx Bacitracin Zinc Oint [Antibiotic 1 applicatio TP BID 7 Days #1 tube 01/02/20 Unknown Rx Oint] traMADoL [Ultram] 50 mg PO Q6HR PRN #12 tablet 01/02/20 Unknown Rx ED Physical Exam - General Limitations: No Limitations General appearance: alert, anxious, in distress - Head Head exam: Present: atraumatic, normocephalic - Eye Eye exam: Present: normal appearance - ENT ENT exam: Present: mucous membranes moist - Neck Neck exam: Present: normal inspection, full ROM - Respiratory Respiratory exam: Present: normal lung sounds bilaterally. Absent: respiratory distress - Cardiovascular Cardiovascular Exam: Present: regular rate, normal rhythm. Absent: systolic murmur, diastolic murmur, rubs, gallop - GI/Abdominal GI/Abdominal exam: Present: soft, normal bowel sounds - Neurological Exam Neurological exam: Present: alert, oriented X3, normal gait - Psychiatric Psychiatric exam: Present: normal affect, normal mood - Skin Skin exam: Present: warm, dry, intact, normal color. Absent: rash ED Course Vital Signs 01/04/20 01/04/20 14:55 18:00 Temperature 98 F Pulse Rate 82 72 Respiratory 20 16 Rate Blood Pressure 123/84 118/84 [Right] O2 Sat by Pulse 98 99 Oximetry ED Medical Decision Making - Radiology Data Radiology results: report reviewed Patient: EDIE RENDON MR#: [id number] : 1965 Acct:[id number] Age/Sex: 54 / F ADM Date: 01/04/20 Loc: ED Attending Dr: Ordering Physician: KENIA LOPEZ Date of Service: 01/04/20 Procedure(s): XR chest routine 2V Accession Number(s): [id number] cc: KENIA LOPEZ Fluoro Time In Minutes: CHEST 2 VIEWS INDICATION: Shortness of breath chest tightness. COMPARISON: Chest x-ray from 09/30/2019 FINDINGS: SUPPORT DEVICES: None. HEART: Within normal limits. LUNGS/PLEURA: No acute air space or interstitial disease. No pneumothorax. ADDITIONAL FINDINGS: None. IMPRESSION: 1. No acute findings. Signer Name: Pavan Tellez MD Signed: 01/04/2020 7:55 PM Workstation Name: [id number] Transcribed By: ENRIQUE Dictated By: Pavan Tellez MD Electronically Authenticated By: Pavan Tellez MD Signed Date/Time: 01/04/201954 DD/ 54 TD/TT: - Medical Decision Making 43 year-old -Portuguese male comes in complaining of mild abdominal pain nausea sweating and fatigue. Patient states that he started sweating on Monday having some pain crampiness weakness and tired and itching. Patient does report a history of diabetes hypertension and anxiety. Patient reports he takes his chronic medications as prescribed. Patient does report a history of pancreatitis and last had a alcoholic drink on Monday. Patient denies any fever does admit to chills no chest pain no shortness of breath. Chest x-ray is been ordered albuterol nebulizer has been ordered. Critical care attestation.: If time is entered above; I have spent that time in minutes in the direct care of this critically ill patient, excluding procedure time. ED Disposition Clinical Impression: Anxiety Disposition: DC-01 TO HOME OR SELFCARE Is pt being admited?: No Does the pt Need Aspirin: No Condition: Stable Instructions: Anxiety (ED) Additional Instructions: Chest x-ray is negative for any acute findings. Labs are all within normal cantu its. Recommend for you to follow-up with your primary care provider. Referrals: PRIMARY MD KENNY [Primary Care Provider] - 3-5 Days [facility] [Outside] - 3-5 Days [facility] [Outside] - 3-5 Days
--- NOTE | 2020-01-04 20:00 | XRay Report ---
CHEST 2 VIEWS INDICATION: Shortness of breath chest tightness. COMPARISON: Chest x-ray from 09/30/2019 FINDINGS: SUPPORT DEVICES: None. HEART: Within normal limits. LUNGS/PLEURA: No acute air space or interstitial disease. No pneumothorax. ADDITIONAL FINDINGS: None. IMPRESSION: 1. No acute findings. Signer Name: Pavan Tellez MD Signed: 01/04/2020 7:55 PM Workstation Name: [id number]
[2020-01-04 20:05] LABS: Hematocrit 34.3 % (30.3-42.9); Hemoglobin 11.5 gm/dl (10.1-14.3); Mean Corpuscular HGB Conc 33 % (30-34); Mean Corpuscular Volume 89 fl (79-97); Platelet Count 279 K/mm3 (140-440); Red Blood Count 3.86 M/mm3 (3.65-5.03); Red Cell Distribution Width 13.8 % (13.2-15.2)
[2020-01-04 20:10] LABS: BUN/Creatinine Ratio 13; Blood Urea Nitrogen 12 mg/dL (7-17); Calcium 9.3 mg/dL (8.4-10.2); Hemolysis Index 7
[2020-01-05] MEDS ORDERED: ALBUTEROL 2.5 MG/3 ML NEBU IH ONE (05:15)
[2020-01-05] MEDS ORDERED: IPRATROPIUM 0.02% NEBU 2.5 ML IH ONE (05:15)
[2020-01-05 05:22] VITALS: BP 138/82
== END 2020-01-04 22:00 | disposition home or self-care (01) ==
LOC: ED 14:32
DX: F41.9 Anxiety disorder, unspecified (principal); R07.89 Other chest pain; R10.9 Unspecified abdominal pain; R53.83 Other fatigue; R11.0 Nausea; I50.9 Heart failure, unspecified; I11.0 Hypertensive heart disease with heart failure; E11.9 Type 2 diabetes mellitus without complications; K21.9 Gastro-esophageal reflux disease without esophagitis; M19.91 Primary osteoarthritis, unspecified site; J44.9 Chronic obstructive pulmonary disease, unspecified; Z98.51 Tubal ligation status; Z98.890 Other specified postprocedural states; Z79.84 Long term (current) use of oral hypoglycemic drugs; Z79.899 Other long term (current) drug therapy; Z88.0 Allergy status to penicillin; Z88.1 Allergy status to other antibiotic agents; Z91.010 Allergy to peanuts; Z91.013 Allergy to seafood
CPT/HCPCS: 36415; 71046; 80048; 83880; 85027; 94640; 94644

== ENCOUNTER 2020-02-04 22:39 | Observation (INO) | payer MEDICARE ==
[2020-02-04] MEDS ORDERED: methylPREDNISolone Sod Succinate 125 MG/2 ML INJ IV ONE (22:43)
[2020-02-04] MEDS ORDERED: IPRATROPIUM 0.02% NEBU 2.5 ML IH ONE (22:45)
[2020-02-04] MEDS ORDERED: ALBUTEROL 2.5 MG/3 ML NEBU IH ONE (22:45)
[2020-02-04] MEDS ORDERED: MAGNESIUM SULFATE 2 GM/50 ML BAG IV ONE (22:46)
[2020-02-04] MEDS ORDERED: LORazepam 2 MG/ML VIAL IV ONE (22:47)
--- NOTE | 2020-02-04 23:14 | Emergency Department Report ---
ED Shortness of Breath HPI - General Chief Complaint: Dyspnea/Respdistress Stated Complaint: ASTHMA Time Seen by Provider: 02/04/20 22:42 Source: patient Mode of arrival: Ambulatory Limitations: No Limitations - History of Present Illness Initial Comments: Patient is 54-year-old female with history of COPD, asthma and congestive heart failure and severe and anxiety. Patient presented to the ER complaining of severe shortness of breath and difficulty in breathing. Patient presented with significant respiratory distress. Patient immediately started on albuterol, Atrovent, Solu-Medrol, magnesium and given Ativan. Patient started on BiPAP. Patient denied any fever or chills. She also denied any chest pain. MD Complaint: shortness of breath -: Sudden, This evening Consistency: constant Known History Of: asthma, congestive heart failure Treatments Prior to Arrival: none - Related Data Previous Rx's Medication Instructions Recorded Last Taken Type HYDROcodone/APAP 5-325 [Ot[place] 1 each PO Q6HR PRN #7 tablet 09/24/19 Unknown Rx 5-325 mg TAB] guaiFENesin DM [Guaifenesin Dm 10 ml PO Q8HR 10 Days oral.liqd 09/24/19 Unknown Rx Syrup] oxyCODONE /ACETAMINOPHEN [Percocet 1 tab PO Q6HR PRN #10 tablet 10/01/19 Unknown Rx 5/325 mg] diazePAM TAB [Valium] 2 mg PO TID PRN #10 tablet 10/02/19 Unknown Rx traMADoL [Ultram 50 MG tab] 50 mg PO Q6HR PRN #12 tablet 01/02/20 Unknown Rx Acetaminophen [Acetaminophen TAB] 650 mg PO Q4H PRN tablet 01/06/20 Unknown Rx Aspirin [Aspirin BABY CHEW TAB] 81 mg PO QDAY #30 tab.chew 01/06/20 Unknown Rx Bacitracin Zinc Oint [Antibiotic 1 applicatio TP BID 7 Days #1 tube 01/06/20 Unknown Rx Oint] Fluticasone/Salmeterol [Advair 1 puff IH BID #1 disk.w.dev 01/06/20 Unknown Rx Diskus 500-50 mcg] Furosemide [Lasix TAB] 20 mg PO DAILY@0600 #30 tablet 01/06/20 Unknown Rx Gabapentin 300 mg PO Q8HR #90 capsule 01/06/20 Unknown Rx Ipratropium/Albuterol Sulfate 1 ampul IH Q4HR #1 box 01/06/20 Unknown Rx [DUONEB *Not for PRN Use*] Montelukast [Singulair] 10 mg PO QHS #30 tablet 01/06/20 Unknown Rx diazePAM TAB [Valium] 2 mg PO TID PRN #10 tablet 01/06/20 Unknown Rx lisinopriL [Zestril TAB] 20 mg PO QDAY #30 tab 01/06/20 Unknown Rx metFORMIN [Glucophage] 500 mg PO BID #60 tab 01/06/20 Unknown Rx predniSONE [Deltasone] 20 mg PO QDAY #18 tab 01/06/20 Unknown Rx Allergies Allergy/AdvReac Type Severity Reaction Status Date / Time amoxicillin Allergy Anaphylaxis Verified 03/29/19 00:50 Penicillins Allergy Rash Verified 07/25/17 08:05 seafood Allergy Severe Anaphylaxis Uncoded 03/16/17 01:08 peanuts Allergy Anaphylaxis Uncoded 09/20/19 12:06 ED Review of Systems ROS: Stated complaint: ASTHMA Other details as noted in HPI Comment: All other systems reviewed and negative Constitutional: denies: chills, fever Cardiovascular: denies: chest pain, palpitations Gastrointestinal: denies: abdominal pain, nausea, vomiting Psychiatric: anxiety. denies: auditory hallucinations, visual hallucinations ED Past Medical Hx - Past Medical History Previous Medical History?: Yes Hx Hypertension: Yes Hx Heart Attack/AMI: No Hx Congestive Heart Failure: Yes Hx Diabetes: Yes Hx Pulmonary Embolism: No Hx GERD: Yes Hx Liver Disease: No Hx Renal Disease: No Hx Sickle Cell Disease: No Hx Arthritis: Yes Hx Headaches / Migraines: No Hx Seizures: No Hx Kidney Stones: No Hx Psychiatric Treatment: Yes (Anxiety) Hx Asthma: Yes Hx COPD: Yes Hx Tuberculosis: No Hx HIV: No Additional medical history: Intubated x 8. heart murmur. osteoporosis. hearing loss in [place] - Surgical History Hx Coronary Stent: No Hx Open Heart Surgery: No Hx Pacemaker: No Hx Internal Defibrillator: No Hx Cholecystectomy: No Hx Appendectomy: No Hx Breast Surgery: No Additional Surgical History: cataracts, nasal surg, tubal ligation. bilateral foot. Left shoulder surgery, R. knee sx - Social History Smoking Status: Never Smoker - Medications Home Medications: Home Medications Medication Instructions Recorded Confirmed Last Taken Type HYDROcodone/APAP 5-325 [Ot[place] 1 each PO Q6HR PRN #7 tablet 09/24/19 Unknown Rx 5-325 mg TAB] guaiFENesin DM [Guaifenesin Dm 10 ml PO Q8HR 10 Days oral.liqd 09/24/19 Unknown Rx Syrup] oxyCODONE /ACETAMINOPHEN [Percocet 1 tab PO Q6HR PRN #10 tablet 10/01/19 Unknown Rx 5/325 mg] diazePAM TAB [Valium] 2 mg PO TID PRN #10 tablet 10/02/19 Unknown Rx traMADoL [Ultram 50 MG tab] 50 mg PO Q6HR PRN #12 tablet 01/02/20 Unknown Rx Acetaminophen [Acetaminophen TAB] 650 mg PO Q4H PRN tablet 01/06/20 Unknown Rx Aspirin [Aspirin BABY CHEW TAB] 81 mg PO QDAY #30 tab.chew 01/06/20 Unknown Rx Bacitracin Zinc Oint [Antibiotic 1 applicatio TP BID 7 Days #1 tube 01/06/20 Unknown Rx Oint] Fluticasone/Salmeterol [Advair 1 puff IH BID #1 disk.w.dev 01/06/20 Unknown Rx Diskus 500-50 mcg] Furosemide [Lasix TAB] 20 mg PO DAILY@0600 #30 tablet 01/06/20 Unknown Rx Gabapentin 300 mg PO Q8HR #90 capsule 01/06/20 Unknown Rx Ipratropium/Albuterol Sulfate 1 ampul IH Q4HR #1 box 01/06/20 Unknown Rx [DUONEB *Not for PRN Use*] Montelukast [Singulair] 10 mg PO QHS #30 tablet 01/06/20 Unknown Rx diazePAM TAB [Valium] 2 mg PO TID PRN #10 tablet 01/06/20 Unknown Rx lisinopriL [Zestril TAB] 20 mg PO QDAY #30 tab 01/06/20 Unknown Rx metFORMIN [Glucophage] 500 mg PO BID #60 tab 01/06/20 Unknown Rx predniSONE [Deltasone] 20 mg PO QDAY #18 tab 01/06/20 Unknown Rx ED Physical Exam - General Limitations: No Limitations General appearance: alert, in distress - Head Head exam: Present: atraumatic, normocephalic, normal inspection - Eye Eye exam: Present: normal appearance - ENT ENT exam: Present: normal exam, normal orophraynx, mucous membranes moist - Neck Neck exam: Present: normal inspection, full ROM. Absent: tenderness, meningismus - Respiratory Respiratory exam: Present: respiratory distress, wheezes, accessory muscle use, decreased breath sounds, prolonged expiratory. Absent: rales, rhonchi - Cardiovascular Cardiovascular Exam: Present: regular rate, normal rhythm, normal heart sounds - GI/Abdominal GI/Abdominal exam: Present: soft, normal bowel sounds. Absent: distended, tenderness, guarding, rebound, rigid, organomegaly, mass, bruit, pulsatile mass, hernia - Extremities Exam Extremities exam: Present: normal inspection, full ROM, normal capillary refill - Back Exam Back exam: Present: normal inspection, full ROM. Absent: CVA tenderness (R), CVA tenderness (L) - Neurological Exam Neurological exam: Present: alert, oriented X3, CN II-XII intact, normal gait, reflexes normal. Absent: motor sensory deficit - Psychiatric Psychiatric exam: Present: anxious - Skin Skin exam: Present: warm, intact, normal color ED Course Vital Signs 02/04/20 02/04/20 02/04/20 22:44 22:45 22:49 Temperature 98.5 F Pulse Rate 107 H 97 H Respiratory 23 24 Rate Blood Pressure 151/93 Blood Pressure 151/93 [Right] O2 Sat by Pulse 96 98 98 Oximetry 02/04/20 02/04/20 02/04/20 22:55 23:00 23:16 Temperature Pulse Rate 102 H 91 H 89 Respiratory 17 18 20 Rate Blood Pressure 151/93 151/93 144/92 Blood Pressure [Right] O2 Sat by Pulse 100 Oximetry 02/04/20 02/04/20 02/04/20 23:20 23:30 23:45 Temperature Pulse Rate 86 83 87 Respiratory 17 15 16 Rate Blood Pressure 141/99 141/99 118/62 Blood Pressure [Right] O2 Sat by Pulse 100 100 100 Oximetry 02/04/20 02/05/20 02/05/20 23:58 00:00 00:02 Temperature Pulse Rate 88 88 84 Respiratory 16 16 15 Rate Blood Pressure 151/93 113/55 118/62 Blood Pressure [Right] O2 Sat by Pulse 100 98 100 Oximetry 02/05/20 02/05/20 02/05/20 00:15 00:30 00:45 Temperature Pulse Rate 90 82 84 Respiratory 15 14 14 Rate Blood Pressure 110/49 105/52 115/53 Blood Pressure [Right] O2 Sat by Pulse 98 99 99 Oximetry 02/05/20 02/05/20 02/05/20 01:00 01:15 01:30 Temperature Pulse Rate 80 78 76 Respiratory 15 15 14 Rate Blood Pressure 107/62 103/57 105/65 Blood Pressure [Right] O2 Sat by Pulse 100 100 99 Oximetry 02/05/20 02/05/20 02/05/20 01:45 02:00 02:15 Temperature Pulse Rate 76 71 73 Respiratory 13 12 14 Rate Blood Pressure 110/68 108/70 104/64 Blood Pressure [Right] O2 Sat by Pulse 99 99 99 Oximetry ED Medical Decision Making - Lab Data Result diagrams: 02/04/20 23:01 02/04/20 23:01 - EKG Data -: EKG Interpreted by Me EKG shows normal: sinus rhythm Rate: normal - EKG Data Interpretation: no acute changes - Radiology Data Radiology results: report reviewed - Medical Decision Making Patient is 54-year-old female with history of COPD, asthma and congestive heart failure and severe and anxiety. Patient presented to the ER complaining of severe shortness of breath and difficulty in breathing. Patient presented with significant respiratory distress. Patient immediately started on albuterol, Atrovent, Solu-Medrol, magnesium and given Ativan. Patient started on BiPAP. Patient denied any fever or chills. She also denied any chest pain. EKG is unremarkable. Labs reviewed and is unremarkable. Patient stated that she is feeling much better. I discussed the patient with Dr. Wise, he agreed to admit the patient to the hospital for further management. Critical Care Time: Yes Critical care time in (mins) excluding proc time.: 30 Critical care attestation.: If time is entered above; I have spent that time in minutes in the direct care of this critically ill patient, excluding procedure time. ED Disposition Clinical Impression: Asthma exacerbation Disposition: - OP ADMIT IP TO THIS HOSP Is pt being admited?: Yes Condition: Stable Referrals: RON BAUMANN MD [Primary Care Provider] - 3-5 Days
[2020-02-04 23:41] LABS: ABG Base Excess -1.7 mmol/L (-2.0-3.0); ABG HCO3 23.8 mmol/L (20.0-26.0); ABG Methemoglobin 0.6 % (0.0-1.5); ABG Oxygen Saturation 96.7 % (95.0-99.0); ABG PCO2 43.3 mm Hg; ABG PH 7.358 pH Units (7.350-7.450); ABG PO2 87.6 mm Hg (80.0-90.0)
[2020-02-04 23:42] LABS: Basophils % (Auto) 0.7 % (0.0-1.8); Eosinophils # (Auto) 0.2 K/mm3 (0.0-0.4); Eosinophils % (Auto) 2.9 % (0.0-4.3); Hematocrit 32.9 % (30.3-42.9); Hemoglobin 11.1 gm/dl (10.1-14.3); Lymphocytes # (Auto) 2.4 K/mm3 (1.2-5.4); Lymphocytes % (Auto) 46.6 % (13.4-35.0); Mean Corpuscular HGB Conc 34 % (30-34); Mean Corpuscular Volume 89 fl (79-97); Monocytes # (Auto) 0.5 K/mm3 (0.0-0.8); Platelet Count 232 K/mm3 (140-440); Red Cell Distribution Width 13.7 % (13.2-15.2)
[2020-02-04 23:54] LABS: BUN/Creatinine Ratio 9; Blood Urea Nitrogen 9 mg/dL (7-17); Calcium 8.9 mg/dL (8.4-10.2); Hemolysis Index 2; INR 1.28 (0.87-1.13)
[2020-02-04 23:55] LABS: Partial Thromboplastin Time 32.5 Sec. (24.2-36.6)
--- NOTE | 2020-02-05 00:08 | XRay Report ---
CHEST 1 VIEW INDICATION / CLINICAL INFORMATION: Dyspnea. COMPARISON: 01/05/2020 FINDINGS: SUPPORT DEVICES: None. HEART / MEDIASTINUM: No significant abnormality. LUNGS / PLEURA: No significant pulmonary or pleural abnormality.. No pneumothorax. ADDITIONAL FINDINGS: No significant additional findings. IMPRESSION: 1. No acute findings. Signer Name: Kenneth West MD Signed: 02/05/2020 12:03 AM Workstation Name: [id number]
[2020-02-05] MEDS ORDERED: DEXTROSE 50% IN WATER (25GM) 50 ML SYRINGE IV PRN (05:50)
[2020-02-05] MEDS ORDERED: guaiFENesin 100 MG/5 ML ORAL LIQD PO PRN (05:55)
[2020-02-05] MEDS ORDERED: ACETAMINOPHEN 325 MG TAB PO PRN (05:57)
--- NOTE | 2020-02-05 06:03 | History and Physical Report ---
History of Present Illness Date of examination: 02/04/20 Date of admission: 02/05/20 02:52 Chief complaint: Shortness of breath History of present illness: 54 year old female presenting with shortness of breath going on for few hours prior to presentation. There is no history of fever or chills , there is no chest pain butthere is symptom of cough, wheezing and no nausea or vomiting. Past History Past Medical History: arthritis, COPD, diabetes, hypertension, other (ANXIETY, ASTHMA, HEART MURMUR) Past Surgical History: cataract removal, Other (TUBAL LIGATION, NASAL SURGERY , LEFT SHOULDER SURGERY, RIGHT KNEE SURGERY, FOOT) Social history: no significant social history Family history: no significant family history Medications and Allergies Allergies Allergy/AdvReac Type Severity Reaction Status Date / Time amoxicillin Allergy Anaphylaxis Verified 03/29/19 00:50 Penicillins Allergy Rash Verified 07/25/17 08:05 seafood Allergy Severe Anaphylaxis Uncoded 03/16/17 01:08 peanuts Allergy Anaphylaxis Uncoded 09/20/19 12:06 Home Medications Medication Instructions Recorded Confirmed Last Taken Type Aspirin [Aspirin BABY CHEW TAB] 81 mg PO QDAY #30 tab.chew 01/06/20 02/05/20 Unknown Rx Furosemide [Lasix TAB] 20 mg PO DAILY@0600 #30 tablet 01/06/20 02/05/20 Unknown Rx Gabapentin 300 mg PO Q8HR #90 capsule 01/06/20 02/05/20 Unknown Rx Montelukast [Singulair] 10 mg PO QHS #30 tablet 01/06/20 02/05/20 Unknown Rx lisinopriL [Zestril TAB] 20 mg PO QDAY #30 tab 01/06/20 02/05/20 Unknown Rx metFORMIN [Glucophage] 500 mg PO QDAY 02/05/20 02/05/20 Unknown History Active Meds: Active Medications Dextrose (D50w (25gm) Syringe) 50 ml IV Q30MIN PRN; Protocol PRN Reason: Hypoglycemia Heparin Sodium (Porcine) (Heparin) 5,000 unit SUB-Q Q12HR REANNA Review of Systems Constitutional: weakness, malaise, no fever, no chills, no sweats, no night sweats, no anorexia, no fatigue, no lethargy Eyes: bilateral: other (NO BILATERAL EYE SYMPTOM) Ears, nose, mouth and throat: no ear pain, no ear discharge Breasts: deferred Cardiovascular: shortness of breath, no chest pain, no orthopnea, no palpitations, no rapid/irregular heart beat, no edema, no syncope, no lightheadedness Respiratory: cough, shortness of breath, dyspnea on exertion, wheezing, no cough with sputum, no excessive sputum, no hemoptysis, no congestion Gastrointestinal: no abdominal pain, no nausea, no vomiting, no diarrhea, no constipation, no change in bowel habits, no hematemesis, no coffee ground emesis, no hematochezia Musculoskeletal: no neck stiffness, no neck pain, no muscle weakness Integumentary: no rash, no pruritis, no redness, no sores, no wounds, no jaundice, no boils, no growths, no bullae, no lesions, no depigmentation, no acne, no dryness Neurological: weakness, no seizures, no syncope, no tremors, no vertigo, no headaches Psychiatric: no anxiety, no depression Endocrine: no polyuria, no nocturia, no excessive sweating Hematologic/Lymphatic: no easy bruising, no easy bleeding Allergic/Immunologic: no urticaria, no anaphylaxis Exam - Constitutional Vitals: Temp Pulse Resp BP Pulse Ox 98.5 F 73 16 124/77 100 02/04/20 22:49 02/05/20 04:15 02/05/20 04:15 02/05/20 04:15 02/05/20 04:15 General appearance: Present: mild distress - EENT Eyes: Present: PERRL, EOM intact ENT: hearing intact, clear oral mucosa - Neck Neck: Present: supple, normal ROM - Respiratory Respiratory effort: normal Respiratory: bilateral: wheezing (EXPIRATORY) - Cardiovascular Rhythm: regular Heart Sounds: Present: S1 & S2. Absent: gallop, systolic murmur, diastolic murmur - Extremities Extremities: no ischemia, No edema Peripheral Pulses: within normal limits - Abdominal General gastrointestinal: Present: soft, non-tender, non-distended. Absent: tender, distended Female genitourinary: Present: deferred - Rectal Rectal Exam: deferred - Integumentary Integumentary: Present: clear, warm, dry - Musculoskeletal Musculoskeletal: strength equal bilaterally - Psychiatric Psychiatric: appropriate mood/affect HEART Score - HEART Score Age: 45-65 Risk factors: 1-2 risk factors Troponin: Troponin T < 0.010 ng/mL (0.00-0.029) 02/05/20 01:32 Troponin: < normal limit - Critical Actions Critical Actions: 0-3 pts:0.9-1.7%risk of adverse cardiac event.Candidate for discharge Results - Labs CBC & Chem 7: 02/04/20 23:02/04/20: Labs: Laboratory Last Values WBC 5.2 K/mm3 (4.5-11.0) 02/04/20: RBC 3.70 M/mm3 (3.65-5.03) 02/04/20: Hgb 11.1 gm/dl (10.1-14.3) 02/04/20: Hct 32.9 % (30.3-42.9) 02/04/20: MCV 89 fl (79-97) 02/04/20: MCH 30 pg (28-32) 02/04/20: MCHC 34 % (30-34) 02/04/20: RDW 13.7 % (13.2-15.2) 02/04/20: Plt Count 232 K/mm3 (140-440) 02/04/20 23: Lymph % (Auto) 46.6 % (13.4-35.0) H 02/04/20: [place] % (Auto) 9.0 % (0.0-7.3) H 02/04/20: Eos % (Auto) 2.9 % (0.0-4.3) 02/04/20: Baso % (Auto) 0.7 % (0.0-1.8) 02/04/20: Lymph # (Auto) 2.4 K/mm3 (1.2-5.4) 02/04/20: [place] # (Auto) 0.5 K/mm3 (0.0-0.8) 02/04/20: Eos # (Auto) 0.2 K/mm3 (0.0-0.4) 02/04/20: Baso # (Auto) 0.0 K/mm3 (0.0-0.1) 02/04/20: Seg Neutrophils % 40.8 % (40.0-70.0) 02/04/20 23: Seg Neutrophils # 2.1 K/mm3 (1.8-7.7) 02/04/20 23: PT 16.3 Sec. (12.2-14.9) H 02/04/20 23: INR 1.28 (0.87-1.13) H 02/04/20: APTT 32.5 Sec. (24.2-36.6) 02/04/20 23: ABG pH 7.358 pH Units (7.350-7.450) 02/04/20 23: ABG pCO2 43.3 mm Hg 02/04/20: ABG pO2 87.6 mm Hg (80.0-90.0) 02/04/20: ABG HCO3 23.8 mmol/L (20.0-26.0) 02/04/20: ABG O2 Saturation 96.7 % (95.0-99.0) 02/04/20: ABG O2 Content 15.1 (0.0-44) 02/04/20: ABG Base Excess -1.7 mmol/L (-2.0-3.0) 02/04/20: ABG Hemoglobin 11.2 gm/dl (12.0-16.0) L 02/04/20: ABG Carboxyhemoglobin 1.0 % (0.0-5.0) 02/04/20: ABG Methemoglobin 0.6 % (0.0-1.5) 02/04/20: Oxyhemoglobin 95.2 % (95.0-99.0) 02/04/20 23: FiO2 50 % 02/04/20 23:25 Sodium 143 mmol/L (137-145) 02/04/20 23: Potassium 3.5 mmol/L (3.6-5.0) L 02/04/20: Chloride 105.8 mmol/L (98-107) 02/04/20 23: Carbon Dioxide 23 mmol/L (22-30) 02/04/20 23: Anion Gap 18 mmol/L 02/04/20 23: BUN 9 mg/dL (7-17) 02/04/20 23:01 Creatinine 1.0 mg/dL (0.6-1.2) 02/04/20 23:01 Estimated GFR > 60 ml/min 02/04/20 23:01 BUN/Creatinine Ratio 9 % 02/04/20 23:01 Glucose 127 mg/dL (65-100) H 02/04/20 23:01 Lactic Acid 1.10 mmol/L (0.7-2.0) 02/04/20 23:01 Calcium 8.9 mg/dL (8.4-10.2) 02/04/20 23:01 Troponin T < 0.010 ng/mL (0.00-0.029) 02/05/20 01:32 NT-Pro-B Natriuret Pep 166.5 pg/mL (0-900) 02/04/20 23:01 Microbiology: Microbiology 02/04/20 23:01 Peripheral/Venous Blood Culture - Preliminary Culture in Progress 02/04/20 22:56 Peripheral/Venous Blood Culture - Preliminary Culture in Progress Calderon/IV: Voiding Method Bedside Commode IV Catheter Type [Right INT / Saline Lock Antecubital] Assessment and Plan - Patient Problems (1) Hypokalemia Current Visit: Yes Status: Acute Plan to address problem: POTASSIOUM REPLACEMENT BY MOUTH (2) Asthma exacerbation Current Visit: No Status: Acute Plan to address problem: 1. 1. CONTINUE BIPAP 2. DUONEBULIZER TREATMENT 3. EMPIRIC I.V LEVAQUIN ANTIBIOTIC 4. RESPIRATORY THERAPY CONSULT 5. I.V SOLUMEDROL 6. ROBITUSSIN FOR COUGH (3) Diabetes Current Visit: No Status: Acute Plan to address problem: 1. ACCUCHECK WITH SLIDING SCALE INSULIN COVERAGE 2. CONSISTENT CARBOHYDRATE AND LOW SODIUM DIET
[2020-02-05] MEDS: methylPREDNISolone Sod Succinate 40 MG/1 ML INJ IV SCH ×3 (07:15→22:29)
[2020-02-05] MEDS: INSULIN REGULAR, HUMAN 100 UNIT/ML 3ML VIAL SUB-Q SCH ×4 (07:30→22:32)
[2020-02-05] MEDS ORDERED: INSULIN REGULAR, HUMAN 100 UNIT/ML 3ML VIAL SUB-Q SCH ×2 (07:30→22:00)
[2020-02-05] MEDS: IPRATROPIUM/ALBUTEROL SULFATE 3 ML AMPUL.NEB IH SCH ×4 (09:28→19:44)
[2020-02-05] MEDS: HEPARIN 5,000 UNIT/1 ML VIAL SUB-Q SCH ×2 (11:56→22:30)
--- NOTE | 2020-02-05 18:15 | Event Note ---
Date: 02/05/20 Patient was admitted this morning with worsening shortness of breath and acute exacerbation of bronchial asthma Acute hypoxic respiratory failure requiring BiPAP on admission. Patient seen and examined, patient's chart medications and reports reviewed Agree with the current management, closely monitor the patient and adjust the management as needed. Possible discharge in 1 to 2 days if stable
[2020-02-05 18:43] LABS: Bilirubin,Urine NEG (Negative); Blood,Urine NEG (Negative); Color,Urine Yellow (Yellow); Mucus,Urine FEW /HPF; Protein,Urine <15 mg/dL mg/dL (Negative); Urobilinogen,Urine < 2.0 mg/dL (<2.0)
[2020-02-06] MEDS: IPRATROPIUM/ALBUTEROL SULFATE 3 ML AMPUL.NEB IH SCH ×5 (00:15→18:05)
[2020-02-06] MEDS: methylPREDNISolone Sod Succinate 40 MG/1 ML INJ IV SCH ×2 (05:56→15:13)
[2020-02-06] MEDS: INSULIN REGULAR, HUMAN 100 UNIT/ML 3ML VIAL SUB-Q SCH ×2 (08:17→12:51)
[2020-02-06] MEDS: HEPARIN 5,000 UNIT/1 ML VIAL SUB-Q SCH (09:38)
[2020-02-06 13:22] VITALS: BP 143/84
--- NOTE | 2020-02-06 14:33 | Discharge Summary ---
Providers - Providers Date of Admission: 02/05/20 02:52 Date of discharge: 02/06/20 Attending physician: FAMILIA SANTOS 02/05/20 05:29 Consult to Dietitian/Nutrition [CONS] Routine Physician Instructions: Reason For Exam: Reason for Consult: consult Primary care physician: RON BAUMANN Hospitalization Condition: Stable Disposition: DC-01 TO HOME OR SELFCARE Time spent for discharge: 32 min Core Measure Documentation - Palliative Care Palliative Care/ Comfort Measures: Not Applicable - Core Measures Any of the following diagnoses?: none Exam - Constitutional Vitals: Temp Pulse Resp BP Pulse Ox 98.3 F 74 22 143/84 99 02/06/20 11:43 02/06/20 11:44 02/06/20 11:43 02/06/20 11:43 02/06/20 11:44 General appearance: Present: no acute distress, well-nourished - EENT Eyes: Present: PERRL, EOM intact - Neck Neck: Present: supple, normal ROM - Respiratory Respiratory effort: normal Respiratory: bilateral: diminished, negative: rales, rhonchi, wheezing - Cardiovascular Rhythm: regular Heart Sounds: Present: S1 & S2 - Extremities Extremities: no ischemia, pulses intact - Abdominal General gastrointestinal: Present: soft, non-tender, non-distended, normal bowel sounds - Integumentary Integumentary: Present: clear, warm - Musculoskeletal Musculoskeletal: strength equal bilaterally - Psychiatric Psychiatric: appropriate mood/affect, cooperative - Neurologic Neurologic: CNII-XII intact, moves all extremities Plan Activity: advance as tolerated Diet: other (Cardiac diet) Additional Instructions: Patient's resting room air and ambulatory room air O2 s ats more than 94%. No indication for home oxygen. Advised to see private pulmonary/lung doctor in 1 to 2 weeks. 2 days work excuse 02/07/2020 and 02/08/2020, may return to work on 02/09/2020 Follow up with: RON BAUMANN MD [Primary Care Provider] - 3-5 Days Prescriptions: levoFLOXacin [Levaquin] 750 mg PO QDAY #3 tablet Prednisone [predniSONE 5 mg (6-Day Pack, 21 Tabs)] 5 mg PO .TAPER #1 tab.ds.pk Albuterol Mdi (or & Nicu Only) [ProAir HFA Inhaler] 1 puff IH QID PRN #8.5 gram PRN Reason: Shortness Of Breath guaiFENesin [Robitussin] 200 mg PO Q4H PRN #1 bottle PRN Reason: Cough
== END 2020-02-06 17:00 | disposition home or self-care (01) ==
LOC: ED 22:39 → 3A 02-05 02:52
PROVIDERS: ADMIT Internal Medicine; ATTEND Internal Medicine
DX: J45.901 Unspecified asthma with (acute) exacerbation (principal); E87.6 Hypokalemia; E11.9 Type 2 diabetes mellitus without complications; I11.0 Hypertensive heart disease with heart failure; I50.9 Heart failure, unspecified; M19.90 Unspecified osteoarthritis, unspecified site; J44.9 Chronic obstructive pulmonary disease, unspecified; F41.9 Anxiety disorder, unspecified; K21.9 Gastro-esophageal reflux disease without esophagitis; M81.0 Age-related osteoporosis without current pathological fracture; Z98.49 Cataract extraction status, unspecified eye; Z98.51 Tubal ligation status; Z98.890 Other specified postprocedural states; Z79.82 Long term (current) use of aspirin; Z79.84 Long term (current) use of oral hypoglycemic drugs
CPT/HCPCS: 36415; 71045; 80048; 81001; 82140; 82803; 82962; 83880; 84484; 85025; 85610; 85730; 87040; 93005; 94640; 94644; 94660; 94760; 96365; 96366; 96367; 96372; 96375; 96376; 99291; G0378; J1644; J1956; J2060; J2920; J2930; J3475; J1815

== ENCOUNTER 2020-03-06 19:34 | Observation (INO) | payer MEDICARE ==
--- NOTE | 2020-03-06 21:02 | Event Note ---
ED Screening Note ED Screening Note: pt states she presents for HTN states her blood pressure was 166/109, she had not taken her night time dose of lisinopril yet her BP is stable here she states she is now having CP hx of HTN, DM, CHF, anxiety This initial assessment/diagnostic orders/clinical plan/treatment(s) is/are subject to change based on patients health status, clinical progression and re- assessment by fellow clinical providers in the ED. Further treatment and workup at subsequent clinical providers discretion. Patient/guardian urged not to elope from the ED as their condition may be serious if not clinically assessed and managed. Initial orders include: CP protocol
[2020-03-06 21:38] LABS: Basophils # (Auto) 0.1 K/mm3 (0.0-0.1); Basophils % (Auto) 1.3 % (0.0-1.8); Eosinophils # (Auto) 0.4 K/mm3 (0.0-0.4); Eosinophils % (Auto) 7.9 % (0.0-4.3); Hematocrit 31.7 % (30.3-42.9); Hemoglobin 10.7 gm/dl (10.1-14.3); Lymphocytes % (Auto) 39.1 % (13.4-35.0); Mean Corpuscular HGB Conc 34 % (30-34); Mean Corpuscular Volume 89 fl (79-97); Monocytes # (Auto) 0.5 K/mm3 (0.0-0.8); Monocytes % (Auto) 9.2 % (0.0-7.3); Platelet Count 239 K/mm3 (140-440); Red Blood Count 3.56 M/mm3 (3.65-5.03); Red Cell Distribution Width 14.1 % (13.2-15.2)
[2020-03-06 21:59] LABS: Alanine Aminotransferase 16 units/L (7-56); BUN/Creatinine Ratio 13; Blood Urea Nitrogen 12 mg/dL (7-17); Calcium 9.2 mg/dL (8.4-10.2); Hemolysis Index 6
[2020-03-06] MEDS ORDERED: MORPHINE 2 MG/1 ML INJ IV ONE (23:04)
[2020-03-06] MEDS ORDERED: ASPIRIN 325 MG TAB PO ONE (23:04)
[2020-03-06] MEDS ORDERED: ONDANSETRON 4 MG/2 ML INJ IV ONE (23:05)
--- NOTE | 2020-03-06 23:05 | Emergency Department Report ---
ED Chest Pain HPI - General Chief Complaint: Chest Pain Stated Complaint: HIGH BP PUI?: No Time Seen by Provider: 03/06/20 22:00 Source: patient Mode of arrival: Ambulatory Limitations: No Limitations - History of Present Illness Initial Comments: Patient is a 54-year-old female that presents emergency room with complaints of elevated blood pressure, chest pain, headache. Patient states she missed her lisinopril today. Patient states that her chest pain started at 6 PM. Patient states she checked her blood pressure at home and then promptly took her lisinopril at 6 PM for a blood pressure of 166/109. Patient states that after her blood pressure came down her headache resolved but her chest pain continues. Patient states her chest pain is in her left chest and substernal. Patient states her chest pain is nonradiating. Patient states her chest pain is continuous and is a 10 out of 10. Patient states that her headache has resolved. Patient denies shortness of breath. Patient denies nausea and vomiting. Patient denies recent travel. Patient denies recent international travel. Patient denies exposure to the novel coronavirus. Patient denies sick contacts. Patient denies fever and chills. Patient denies cough. Patient denies diarrhea. Patient denies coming in contact with anybody with symptoms of the novel coronavirus. MD Complaint: chest pain -: Sudden Onset: during rest Pain Location: left chest Pain Radiation: none Severity: severe Severity scale (0 -10): 10 Quality: sharp Consistency: constant Improves With: rest Worsens With: exertion re: denies: nausea, vomting, diaphoresis, dyspnea, sense of impending doom Other Symptoms: denies: cough, fever, syncope, rash, acid taste in mouth, leg swelling Treatments Prior to Arrival: none Aspirin use within the Past 7 Days: (1) Yes - Related Data On Oral Contraceptives: No Home Medications Medication Instructions Recorded Confirmed Last Taken metFORMIN [Glucophage] 500 mg PO QDAY 02/05/20 02/05/20 Unknown Previous Rx's Medication Instructions Recorded Last Taken Type Aspirin [Aspirin BABY CHEW TAB] 81 mg PO QDAY #30 tab.chew 01/06/20 Unknown Rx Furosemide [Lasix TAB] 20 mg PO DAILY@0600 #30 tablet 01/06/20 Unknown Rx Gabapentin 300 mg PO Q8HR #90 capsule 01/06/20 Unknown Rx Montelukast [Singulair] 10 mg PO QHS #30 tablet 01/06/20 Unknown Rx lisinopriL [Zestril TAB] 20 mg PO QDAY #30 tab 01/06/20 Unknown Rx Albuterol Mdi (or & Nicu Only) 1 puff IH QID PRN #8.5 gram 02/06/20 Unknown Rx [ProAir HFA Inhaler] Prednisone [predniSONE 5 mg (6-Day 5 mg PO .TAPER #1 tab.ds.pk 02/06/20 Unknown Rx Pack, 21 Tabs)] guaiFENesin [Robitussin] 200 mg PO Q4H PRN #1 bottle 02/06/20 Unknown Rx levoFLOXacin [Levaquin] 750 mg PO QDAY #3 tablet 02/06/20 Unknown Rx Allergies Allergy/AdvReac Type Severity Reaction Status Date / Time amoxicillin Allergy Anaphylaxis Verified 03/29/19 00:50 Penicillins Allergy Rash Verified 07/25/17 08:05 seafood Allergy Severe Anaphylaxis Uncoded 03/16/17 01:08 peanuts Allergy Anaphylaxis Uncoded 09/20/19 12:06 Heart Score - HEART Score History: Moderately suspicious EKG: Non-specific Age: 45-65 Risk factors: > 3 risk factors or hx of atherosclerotic disease Troponin: < normal limit HEART Score: 5 ED Review of Systems ROS: Stated complaint: HIGH BP Other details as noted in HPI Constitutional: denies: chills, fever Eyes: denies: eye pain, eye discharge, vision change ENT: denies: ear pain, throat pain Respiratory: denies: cough, shortness of breath, wheezing Cardiovascular: chest pain. denies: palpitations Endocrine: no symptoms reported Gastrointestinal: denies: abdominal pain, nausea, diarrhea Genitourinary: denies: urgency, dysuria, discharge Musculoskeletal: denies: back pain, joint swelling, arthralgia Skin: denies: rash, lesions Neurological: as per HPI, headache. denies: weakness, paresthesias Psychiatric: denies: anxiety, depression Hematological/Lymphatic: denies: easy bleeding, easy bruising ED Past Medical Hx - Past Medical History Previous Medical History?: Yes Hx Hypertension: Yes Hx Heart Attack/AMI: No Hx Congestive Heart Failure: Yes Hx Diabetes: Yes Hx Pulmonary Embolism: No Hx GERD: Yes Hx Liver Disease: No Hx Renal Disease: No Hx Sickle Cell Disease: No Hx Arthritis: Yes Hx Headaches / Migraines: No Hx Seizures: No Hx Kidney Stones: No Hx Psychiatric Treatment: Yes (Anxiety) Hx Asthma: Yes Hx COPD: Yes Hx Tuberculosis: No Hx HIV: No Additional medical history: Intubated x 8. heart murmur. osteoporosis. hearing loss in L. HIATAL HERNIA - Surgical History Past Surgical History?: Yes Hx Coronary Stent: No Hx Open Heart Surgery: No Hx Pacemaker: No Hx Internal Defibrillator: No Hx Cholecystectomy: No Hx Appendectomy: No Hx Breast Surgery: No Additional Surgical History: cataracts, nasal surg, tubal ligation. bilateral foot. Left shoulder surgery, R. knee sx - Family History Family history: no significant - Social History Smoking Status: Never Smoker Substance Use Type: None - Medications Home Medications: Home Medications Medication Instructions Recorded Confirmed Last Taken Type Aspirin [Aspirin BABY CHEW TAB] 81 mg PO QDAY #30 tab.chew 01/06/20 02/05/20 Unknown Rx Furosemide [Lasix TAB] 20 mg PO DAILY@0600 #30 tablet 01/06/20 02/05/20 Unknown Rx Gabapentin 300 mg PO Q8HR #90 capsule 01/06/20 02/05/20 Unknown Rx Montelukast [Singulair] 10 mg PO QHS #30 tablet 01/06/20 02/05/20 Unknown Rx lisinopriL [Zestril TAB] 20 mg PO QDAY #30 tab 01/06/20 02/05/20 Unknown Rx metFORMIN [Glucophage] 500 mg PO QDAY 02/05/20 02/05/20 Unknown History Albuterol Mdi (or & Nicu Only) 1 puff IH QID PRN #8.5 gram 02/06/20 Unknown Rx [ProAir HFA Inhaler] Prednisone [predniSONE 5 mg (6-Day 5 mg PO .TAPER #1 tab.ds.pk 02/06/20 Unknown Rx Pack, 21 Tabs)] guaiFENesin [Robitussin] 200 mg PO Q4H PRN #1 bottle 02/06/20 Unknown Rx levoFLOXacin [Levaquin] 750 mg PO QDAY #3 tablet 02/06/20 Unknown Rx ED Physical Exam - General Limitations: No Limitations General appearance: alert, in no apparent distress - Head Head exam: Present: atraumatic, normocephalic - Eye Eye exam: Present: normal appearance, PERRL Pupils: Present: normal accommodation - ENT ENT exam: Present: mucous membranes moist - Neck Neck exam: Present: normal inspection - Respiratory Respiratory exam: Present: normal lung sounds bilaterally. Absent: respiratory distress, wheezes, chest wall tenderness - Cardiovascular Cardiovascular Exam: Present: regular rate, normal rhythm, normal heart sounds. Absent: systolic murmur, diastolic murmur, rubs, gallop - GI/Abdominal GI/Abdominal exam: Present: soft, normal bowel sounds - Extremities Exam Extremities exam: Present: normal inspection - Back Exam Back exam: Present: normal inspection - Neurological Exam Neurological exam: Present: alert, oriented X3 - Psychiatric Psychiatric exam: Present: normal affect, normal mood - Skin Skin exam: Present: warm, dry, intact, normal color. Absent: rash ED Course Vital Signs 03/06/20 03/06/20 03/06/20 20:54 23:35 23:45 Temperature 98.1 F Pulse Rate 59 L 82 Pulse Rate [ Bilateral Throughout] Respiratory 16 12 17 Rate Respiratory Rate [Bilateral Throughout] Blood Pressure 147/77 139/86 O2 Sat by Pulse 96 99 Oximetry 03/07/20 03/07/20 03/07/20 00:00 00:09 00:15 Temperature Pulse Rate 83 73 Pulse Rate [ 79 Bilateral Throughout] Respiratory 21 16 Rate Respiratory 18 Rate [Bilateral Throughout] Blood Pressure 142/92 136/94 O2 Sat by Pulse 97 99 Oximetry 03/07/20 00:20 Temperature Pulse Rate Pulse Rate [ Bilateral Throughout] Respiratory 18 Rate Respiratory Rate [Bilateral Throughout] Blood Pressure O2 Sat by Pulse Oximetry - Reevaluation(s) Reevaluation #1: I discussed all results with patient. I discussed plan of care with patient. Patient agrees with plan of care and admission. Patient to be admitted to the hospitalist service. Patient will be given morphine, aspirin and Zofran. Calista ent was placed on a child monitor. Patient also have an IV started. 03/06/20 23:03 MAHSA score - Mahsa Score Age > 65: (0) No Aspirin use within the Past 7 Days: (1) Yes 3 or more CAD Risk Factors: (1) Yes 2 or more Angina events in past 24 hrs: (1) Yes Known CAD with more than 50% Stenosis: (0) No Elevated Cardiac Markers: (0) No ST Deviation Greater than 0.5mm: (0) No MAHSA Score: 3 ED Medical Decision Making - Lab Data Result diagrams: 03/06/20 21:23 03/06/20 21:23 - EKG Data -: EKG Interpreted by Me EKG shows normal: sinus rhythm, axis, intervals, QRS complexes, ST-T waves Rate: normal - Radiology Data Radiology results: image reviewed interpreted by me: Chest x-ray: No pneumonia, no pneumothorax, no foreign body, no osseous findings, no acute findings - Medical Decision Making Patient is a 54-year-old female that presents emergency room with complaints of chest pain that started at 6 PM. Patient also had a headache and noted to have high blood pressure and she took an extra lisinopril. Patient's blood pressure decreased and her headache improved however her chest pain continued. Patient has an elevated heart score due to her cardiac risk factors to include diabetes and congestive heart failure and hyperlipidemia. Patient MAHSA score is elevated. Patient had a EKG which does not show a STEMI. Patient had chest x- ray which was negative for acute findings. Patient had labs done which were essentially unremarkable. Patient admitted to the hospitalist service for further evaluation and treatment and rule out ACS. - Differential Diagnosis ACS, chest pain, elevated blood pressure, Critical Care Time: Yes Critical care time in (mins) excluding proc time.: 35 Critical care attestation.: If time is entered above; I have spent that time in minutes in the direct care of this critically ill patient, excluding procedure time. Critical Care Time: 35 minutes ED Disposition Clinical Impression: Chest pain Qualifiers: Chest pain type: unspecified Qualified Code(s): R07.9 - Chest pain, unspecified Hypertension Qualifiers: Hypertension type: unspecified Qualified Code(s): I10 - Essential (primary) hypertension Headache Qualifiers: Headache type: unspecified Headache chronicity pattern: acute headache Intractability: not intractable Qualified Code(s): R51.9 - Headache, unspecified Disposition: -09 OP ADMIT IP TO THIS HOSP Is pt being admited?: Yes Does the pt Need Aspirin: No Condition: Critical Time of Disposition: 23:07
[2020-03-06] MEDS ORDERED: ONDANSETRON 4 MG/2 ML INJ ONE (23:58)
[2020-03-06] MEDS ORDERED: ASPIRIN 325 MG TAB ONE (23:59)
[2020-03-06] MEDS ORDERED: MORPHINE 2 MG/1 ML INJ ONE (23:59)
[2020-03-07] MEDS ORDERED: ALBUTEROL 2.5 MG/3 ML NEBU IH ONE ×2 (00:07→23:54)
[2020-03-07] MEDS ORDERED: NITROGLYCERIN 0.4 MG TAB SUBL SL PRN (00:32)
[2020-03-07] MEDS ORDERED: MORPHINE 2 MG/1 ML INJ IV PRN (00:32)
[2020-03-07] MEDS ORDERED: DEXTROSE 50% IN WATER (25GM) 50 ML SYRINGE IV PRN (00:34)
[2020-03-07] MEDS ORDERED: ALBUTEROL 2.5 MG/3 ML NEBU IH PRN (00:36)
[2020-03-07] MEDS ORDERED: ACETAMINOPHEN 325 MG TAB PO PRN (00:39)
[2020-03-07] MEDS: INSULIN REGULAR, HUMAN 100 UNIT/ML 3ML VIAL SUB-Q SCH ×3 (02:00→11:00)
[2020-03-07] MEDS: HEPARIN 5,000 UNIT/1 ML VIAL SUB-Q SCH ×2 (02:00→12:50)
--- NOTE | 2020-03-07 04:00 | History and Physical Report ---
History of Present Illness Date of examination: 03/06/20 Date of admission: 03/06/20 23:19 Chief complaint: Chest Pain History of present illness: 54 year old female presenting with PMH of Diabetes mellitus, Hypertension, CHF, COPD, Anxiety Disorder, Osteoporosis, Hiatal Hernia and hearing Impairment precordial and substernal non radiating sharp chest pain going on for few hours prior to presentation. Chest pain is associated with headache and elevated blood pressure which resolved after patient took lisinopril. There is no history of fever, chills, body ache, nausea or vomiting. Past History Past Medical History: COPD, diabetes, heart failure, hypertension, other (1. HIATAL HERNIA 2. HEARING LOSS, OSTEOPOROSIS, ANXIETY DISORDER) Past Surgical History: Other (CATRACT SURGERY, NASAL SURGERY, BILATERAL FEET, LEFT SHOULDER, RIGHT KNEE SURGERY) Social history: no significant social history Family history: no significant family history Medications and Allergies Allergies Allergy/AdvReac Type Severity Reaction Status Date / Time amoxicillin Allergy Anaphylaxis Verified 03/29/19 00:50 Penicillins Allergy Rash Verified 07/25/17 08:05 seafood Allergy Severe Anaphylaxis Uncoded 03/16/17 01:08 peanuts Allergy Anaphylaxis Uncoded 09/20/19 12:06 Home Medications Medication Instructions Recorded Confirmed Last Taken Type Aspirin [Aspirin BABY CHEW TAB] 81 mg PO QDAY #30 tab.chew 01/06/20 02/05/20 Unknown Rx Furosemide [Lasix TAB] 20 mg PO DAILY@0600 #30 tablet 01/06/20 02/05/20 Unknown Rx Gabapentin 300 mg PO Q8HR #90 capsule 01/06/20 02/05/20 Unknown Rx Montelukast [Singulair] 10 mg PO QHS #30 tablet 01/06/20 02/05/20 Unknown Rx lisinopriL [Zestril TAB] 20 mg PO QDAY #30 tab 01/06/20 02/05/20 Unknown Rx metFORMIN [Glucophage] 500 mg PO QDAY 02/05/20 02/05/20 Unknown History Albuterol Mdi (or & Nicu Only) 1 puff IH QID PRN #8.5 gram 02/06/20 Unknown Rx [ProAir HFA Inhaler] Prednisone [predniSONE 5 mg (6-Day 5 mg PO .TAPER #1 tab.ds.pk 02/06/20 Unknown Rx Pack, 21 Tabs)] guaiFENesin [Robitussin] 200 mg PO Q4H PRN #1 bottle 02/06/20 Unknown Rx levoFLOXacin [Levaquin] 750 mg PO QDAY #3 tablet 02/06/20 Unknown Rx Active Meds: Active Medications Acetaminophen (Tylenol) 650 mg PO Q4H PRN PRN Reason: Headache Albuterol (Proventil) 2.5 mg IH Q6HRT PRN PRN Reason: Shortness Of Breath Aspirin (Aspirin) 325 mg PO QDAY REANNA Dextrose (D50w (25gm) Syringe) 50 ml IV Q30MIN PRN; Protocol PRN Reason: Hypoglycemia Heparin Sodium (Porcine) (Heparin) 5,000 unit SUB-Q Q12HR REANNA Insulin Human Regular (Humulin R) 0 unit SUB-Q Q4HR REANNA; Protocol Morphine Sulfate (Morphine) 2 mg IV Q3H PRN PRN Reason: Pain, Moderate (4-6) Nitroglycerin (Nitro-Bid 2%) 0.5 inch TP QIDNTG REANNA; Protocol Nitroglycerin (Nitrostat) 0.4 mg SL .Q5MIN PRN PRN Reason: Chest Pain Review of Systems Constitutional: no fever, no chills, no sweats, no night sweats, no weakness, no malaise Eyes: bilateral: other (BILATERAL EYE SYMPTOM) Ears, nose, mouth and throat: no ear pain Breasts: deferred Cardiovascular: chest pain, shortness of breath, no orthopnea, no palpitations, no rapid/irregular heart beat, no edema, no syncope, no lightheadedness Respiratory: shortness of breath, dyspnea on exertion, no cough, no excessive sputum, no congestion, no wheezing, no pleurisy Gastrointestinal: no abdominal pain, no nausea, no vomiting, no diarrhea, no constipation, no change in bowel habits, no hematemesis Genitourinary Female: no urinary frequency Rectal: no pain Musculoskeletal: no neck stiffness, no neck pain Integumentary: no rash, no pruritis, no redness Neurological: headaches, no paralysis, no weakness, no seizures, no syncope, no vertigo, no convulsions, no confusion Psychiatric: no anxiety, no depression Endocrine: no polydipsia, no polyuria, no nocturia, no palpatations Hematologic/Lymphatic: no easy bruising, no easy bleeding Exam - Constitutional Vitals: Temp Pulse Resp BP Pulse Ox 97.4 F L 75 18 120/68 98 03/07/20 01:44 03/07/20 02:15 03/07/20 02:15 03/07/20 01:44 03/07/20 02:52 General appearance: Present: no acute distress - EENT Eyes: Present: PERRL, EOM intact ENT: hearing intact - Neck Neck: Present: supple, normal ROM - Respiratory Respiratory effort: normal - Cardiovascular Rhythm: regular Heart Sounds: Present: S1 & S2. Absent: gallop, systolic murmur, diastolic murmur - Extremities Extremities: no ischemia, No edema Peripheral Pulses: within normal limits - Abdominal General gastrointestinal: Present: soft, non-tender, non-distended. Absent: tender, distended, rigid, hepatomegaly, splenomegaly Female genitourinary: Present: deferred - Rectal Rectal Exam: deferred - Integumentary Integumentary: Present: clear, warm, dry - Musculoskeletal Musculoskeletal: strength equal bilaterally - Psychiatric Psychiatric: appropriate mood/affect - Neurologic Neurologic: CNII-XII intact HEART Score - HEART Score EKG: Non-specific Age: 45-65 Risk factors: > 3 risk factors or hx of atherosclerotic disease Troponin: Troponin T < 0.010 ng/mL (0.00-0.029) 03/07/20 00:24 Troponin: < normal limit - Critical Actions Critical Actions: 4-6 pts:12-16.6% risk of adverse cardiac event. Should be admitted (PATIENT IS UNDERGOING WORK UP FOR CHEST PAIN) Results - Labs CBC & Chem 7: 03/06/20 21:23 03/06/20 21:23 Labs: Laboratory Last Values WBC 5.1 K/mm3 (4.5-11.0) 03/06/20 21: RBC 3.56 M/mm3 (3.65-5.03) L 03/06/20 21:23 Hgb 10.7 gm/dl (10.1-14.3) 03/06/20 21:23 Hct 31.7 % (30.3-42.9) 03/06/20 21:23 MCV 89 fl (79-97) 03/06/20 21: MCH 30 pg (28-32) 03/06/20 21: MCHC 34 % (30-34) 03/06/20 21: RDW 14.1 % (13.2-15.2) 03/06/20 21:23 Plt Count 239 K/mm3 (140-440) 03/06/20 21: Lymph % (Auto) 39.1 % (13.4-35.0) H 03/06/20 21:23 Barton % (Auto) 9.2 % (0.0-7.3) H 03/06/20 21: Eos % (Auto) 7.9 % (0.0-4.3) H 03/06/20 21: Baso % (Auto) 1.3 % (0.0-1.8) 03/06/20 21: Lymph # (Auto) 2.0 K/mm3 (1.2-5.4) 03/06/20 21: Barton # (Auto) 0.5 K/mm3 (0.0-0.8) 03/06/20 21: Eos # (Auto) 0.4 K/mm3 (0.0-0.4) 03/06/20 21: Baso # (Auto) 0.1 K/mm3 (0.0-0.1) 03/06/20 21: Seg Neutrophils % 42.5 % (40.0-70.0) 03/06/20 21: Seg Neutrophils # 2.2 K/mm3 (1.8-7.7) 03/06/20 21: Sodium 140 mmol/L (137-145) 03/06/20 21: Potassium 4.0 mmol/L (3.6-5.0) 03/06/20 21: Chloride 105.1 mmol/L (98-107) 03/06/20 21: Carbon Dioxide 27 mmol/L (22-30) 03/06/20 21: Anion Gap 12 mmol/L 03/06/20 21:23 BUN 12 mg/dL (7-17) 03/06/20 21: Creatinine 0.9 mg/dL (0.6-1.2) 03/06/20 21:23 Estimated GFR > 60 ml/min 03/06/20 21:23 BUN/Creatinine Ratio 13 % 03/06/20 21: Glucose 104 mg/dL (65-100) H 03/06/20 21:23 POC Glucose 89 mg/dL (70-105) 03/07/20 01:47 Calcium 9.2 mg/dL (8.4-10.2) 03/06/20 21:23 Total Bilirubin < 0.20 mg/dL (0.1-1.2) 03/06/20 21:23 AST 19 units/L (5-40) 03/06/20 21:23 ALT 16 units/L (7-56) 03/06/20 21:23 Alkaline Phosphatase 75 units/L (35-129) 03/06/20 21:23 Troponin T < 0.010 ng/mL (0.00-0.029) 03/07/20 00:24 NT-Pro-B Natriuret Pep 174.2 pg/mL (0-900) 03/06/20 21:23 Total Protein 6.4 g/dL (6.3-8.2) 03/06/20 21:23 Albumin 4.0 g/dL (3.9-5) 03/06/20 21:23 Albumin/Globulin Ratio 1.7 % 03/06/20 21:23 Calderon/IV: Voiding Method Toilet IV Catheter Type [Right Hand] INT / Saline Lock Assessment and Plan - Patient Problems (1) Chest pain Current Visit: Yes Status: Acute Qualifiers: Chest pain type: unspecified Plan to address problem: 1. TELEMETRY OBSERVATION 2. SERIAL CARDIAC ENZYMES 3. NPO 4. LEXISCAN STRESS TEST 5. NITROPASTE 6. ASPIRIN PO 7. TYLENOL FOR HEADACHE 8. I.V MORPHINE FOR PAIN 9. I.V ZOFRAN FOR NAUSEA AND VOMITING (2) Diabetes Current Visit: No Status: Chronic Plan to address problem: ACCUCHECK AND SLIDING SCALE INSULIN COVERAGE
[2020-03-07] MEDS: NITROGLYCERIN 2% OINT 1 GM TP SCH ×2 (06:22→12:51)
[2020-03-07 06:52] LABS: Creatine Kinase MB 2.5 ng/mL (0.0-4.0)
[2020-03-07] MEDS ORDERED: REGADENOSON 0.4 MG/5 ML INJ IV ONE (08:14)
[2020-03-07] MEDS ORDERED: ACETAMINOPHEN 325 MG TAB ONE (09:44)
[2020-03-07] MEDS ORDERED: ASPIRIN 325 MG TAB PO SCH (10:00)
[2020-03-07 11:52] VITALS: BP 124/75
--- NOTE | 2020-03-07 12:16 | Discharge Summary ---
Providers - Providers Date of Admission: 03/06/20 23:19 Date of discharge: 03/07/20 Attending physician: KEVIN FRANCISCO [facility] Condition: Critical Hospital course: 54 year old female presenting with PMH of Diabetes mellitus, Hypertension, CHF, COPD, Anxiety Disorder, Osteoporosis, Hiatal Hernia and hearing Impairment presented with precordial and substernal non radiating sharp chest pain going on for few hours prior to presentation. Her initial troponin was negative, EKG did not show any specific ST changes. Patient was further evaluated with a stress test which was normal. Patient was then discharged home in stable condition with outpatient follow-up. Discharge diagnosis: Chest pain, likely due to GERD Other chronic issues: Diabetes mellitus type 2, hypertension, CHF with unknown EF, COPD, anxiety disorder, osteoporosis, hiatal hernia and hearing impairment -Continue home medications and follow-up with PCP Disposition: DC-01 TO HOME OR SELFCARE Time spent for discharge: 34 minutes Core Measure Documentation - Palliative Care Palliative Care/ Comfort Measures: Not Applicable - Core Measures Any of the following diagnoses?: none Exam - Constitutional Vitals: Temp Pulse Resp BP Pulse Ox 98.9 F 82 18 124/75 96 03/07/20 11:51 03/07/20 11:51 03/07/20 11:51 03/07/20 11:51 03/07/20 11:51 Plan Activity: advance as tolerated Weight Bearing Status: Weight Bear as Tolerated Diet: low fat, low salt Special Instructions: record daily BP diary Prescriptions: Pantoprazole [Protonix] 40 mg PO QDAY #30 tablet
[2020-03-07 13:28] LABS: Creatine Kinase MB 2.1 ng/mL (0.0-4.0)
--- NOTE | 2020-03-08 09:28 | Treadmill Report ---
THALLIUM STRESS TEST LEFT VENTRICLE: Left ventricular chamber size is within normal spread. Perfusion study demonstrates homogeneous uptake of the tracer in all segments, no defects identified. Gated analysis demonstrates normal left ventricular systolic function with ejection fraction calculated at 57%. CONCLUSION: Normal myocardial perfusion study. JOB# [id number] CA/NTS
== END 2020-03-07 15:19 | disposition home or self-care (01) ==
LOC: ED 19:34 → 4A 23:19
PROVIDERS: ADMIT Internal Medicine; ATTEND Internal Medicine
DX: R07.89 Other chest pain (principal); E11.9 Type 2 diabetes mellitus without complications; I11.0 Hypertensive heart disease with heart failure; I50.9 Heart failure, unspecified; J44.9 Chronic obstructive pulmonary disease, unspecified; M81.0 Age-related osteoporosis without current pathological fracture; R51.9 Headache, unspecified; F41.9 Anxiety disorder, unspecified; Z98.49 Cataract extraction status, unspecified eye; Z98.890 Other specified postprocedural states; Z79.82 Long term (current) use of aspirin; Z79.84 Long term (current) use of oral hypoglycemic drugs
CPT/HCPCS: 36415; 71046; 78452; 80053; 82550; 82553; 82962; 83880; 84484; 85025; 93005; 93017; 94640; 94660; 96372; 96374; 96375; 99291; A9502; G0378; J1644; J2270; J2405; J2785; J1815

== ENCOUNTER 2020-03-08 00:07 | Emergency (ER) | payer MEDICARE ==
[2020-03-08] MEDS ORDERED: predniSONE 20 MG TAB PO ONE (01:23)
[2020-03-08] MEDS ORDERED: ALBUTEROL 2.5 MG/3 ML NEBU IH ONE (01:23)
--- NOTE | 2020-03-08 01:38 | XRay Report ---
CHEST 1 VIEW INDICATION: chestpain. COMPARISON: 03/06/2020 FINDINGS: Support devices: None. Heart: Normal. Lungs/Pleura: No acute pulmonary or pleural findings. IMPRESSION: 1. No acute findings. Signer Name: Jean Carlos Kamara MD Signed: 03/08/2020 1:34 AM Workstation Name: [id number]
--- NOTE | 2020-03-08 02:19 | Emergency Department Report ---
ED Shortness of Breath HPI - General Chief Complaint: Dyspnea/Respdistress Stated Complaint: ANXIOUS Time Seen by Provider: 03/08/20 01:09 Source: patient Mode of arrival: Stretcher Limitations: No Limitations - History of Present Illness Initial Comments: Patient is a 54-year-old F [place] female with multiple medical problems including asthma hypertension congestive heart failure diabetes GERD who was just admitted to our hospital for evaluation of chest discomfort. Patient notes state that she was chest pain-free at the time she was discharged. Patient states that right before discharge she bent over and suddenly felt left lower chest pain radiating to her back which is worse with movement and worse with breathing. States it feels like there is a rock in this area and she is having difficulty breathing. She denies any cough congestion. Patient just received a cardiac rule out including several negative troponins and stress test which also was negative. Patient is requesting something to "open up her lungs" - Related Data Home Medications Medication Instructions Recorded Confirmed Last Taken metFORMIN [Glucophage] 500 mg PO QDAY 02/05/20 02/05/20 Unknown Previous Rx's Medication Instructions Recorded Last Taken Type Aspirin [Aspirin BABY CHEW TAB] 81 mg PO QDAY #30 tab.chew 01/06/20 Unknown Rx Furosemide [Lasix TAB] 20 mg PO DAILY@0600 #30 tablet 01/06/20 Unknown Rx Gabapentin 300 mg PO Q8HR #90 capsule 01/06/20 Unknown Rx Montelukast [Singulair] 10 mg PO QHS #30 tablet 01/06/20 Unknown Rx lisinopriL [Zestril TAB] 20 mg PO QDAY #30 tab 01/06/20 Unknown Rx Albuterol Mdi (or & Nicu Only) 1 puff IH QID PRN #8.5 gram 02/06/20 Unknown Rx [ProAir HFA Inhaler] guaiFENesin [Robitussin] 200 mg PO Q4H PRN #1 bottle 02/06/20 Unknown Rx Pantoprazole [Protonix] 40 mg PO QDAY #30 tablet 03/07/20 Unknown Rx Albuterol Mdi (or & Nicu Only) 2 puff IH QID PRN #1 inhalation 03/08/20 Unknown Rx [ProAir HFA Inhaler] methOCARBAMOL [Robaxin TAB] 500 mg PO Q6H PRN #14 tablet 03/08/20 Unknown Rx predniSONE [Deltasone] 20 mg PO QDAY #5 tab 03/08/20 Unknown Rx traMADoL [Ultram] 50 mg PO Q6HR PRN #10 tablet 03/08/20 Unknown Rx Allergies Allergy/AdvReac Type Severity Reaction Status Date / Time amoxicillin Allergy Anaphylaxis Verified 03/29/19 00:50 Penicillins Allergy Rash Verified 07/25/17 08:05 seafood Allergy Severe Anaphylaxis Uncoded 03/16/17 01:08 peanuts Allergy Anaphylaxis Uncoded 09/20/19 12:06 ED Review of Systems ROS: Stated complaint: ANXIOUS Other details as noted in HPI Comment: All other systems reviewed and negative ED Past Medical Hx - Past Medical History Previous Medical History?: Yes Hx Hypertension: Yes Hx Heart Attack/AMI: No Hx Congestive Heart Failure: Yes Hx Diabetes: Yes Hx Pulmonary Embolism: No Hx GERD: Yes Hx Liver Disease: No Hx Renal Disease: No Hx Sickle Cell Disease: No Hx Arthritis: Yes Hx Headaches / Migraines: No Hx Seizures: No Hx Kidney Stones: No Hx Psychiatric Treatment: Yes (Anxiety) Hx Asthma: Yes Hx COPD: Yes Hx Tuberculosis: No Hx HIV: No Additional medical history: Intubated x 8. heart murmur. osteoporosis. hearing loss in [place] - Surgical History Past Surgical History?: Yes Hx Coronary Stent: No Hx Open Heart Surgery: No Hx Pacemaker: No Hx Internal Defibrillator: No Hx Cholecystectomy: No Hx Appendectomy: No Hx Breast Surgery: No Additional Surgical History: cataracts, nasal surg, tubal ligation. bilateral foot. Left shoulder surgery, R. knee sx - Social History Smoking Status: Never Smoker Substance Use Type: None - Medications Home Medications: Home Medications Medication Instructions Recorded Confirmed Last Taken Type Aspirin [Aspirin BABY CHEW TAB] 81 mg PO QDAY #30 tab.chew 01/06/20 02/05/20 Unknown Rx Furosemide [Lasix TAB] 20 mg PO DAILY@0600 #30 tablet 01/06/20 02/05/20 Unknown Rx Gabapentin 300 mg PO Q8HR #90 capsule 01/06/20 02/05/20 Unknown Rx Montelukast [Singulair] 10 mg PO QHS #30 tablet 01/06/20 02/05/20 Unknown Rx lisinopriL [Zestril TAB] 20 mg PO QDAY #30 tab 01/06/20 02/05/20 Unknown Rx metFORMIN [Glucophage] 500 mg PO QDAY 02/05/20 02/05/20 Unknown History Albuterol Mdi (or & Nicu Only) 1 puff IH QID PRN #8.5 gram 02/06/20 Unknown Rx [ProAir HFA Inhaler] guaiFENesin [Robitussin] 200 mg PO Q4H PRN #1 bottle 02/06/20 Unknown Rx Pantoprazole [Protonix] 40 mg PO QDAY #30 tablet 03/07/20 Unknown Rx Albuterol Mdi (or & Nicu Only) 2 puff IH QID PRN #1 inhalation 03/08/20 Unknown Rx [ProAir HFA Inhaler] methOCARBAMOL [Robaxin TAB] 500 mg PO Q6H PRN #14 tablet 03/08/20 Unknown Rx predniSONE [Deltasone] 20 mg PO QDAY #5 tab 03/08/20 Unknown Rx traMADoL [Ultram] 50 mg PO Q6HR PRN #10 tablet 03/08/20 Unknown Rx ED Physical Exam - General Limitations: No Limitations General appearance: alert, in no apparent distress - Head Head exam: Present: atraumatic, normocephalic - Eye Eye exam: Present: normal appearance - ENT ENT exam: Present: mucous membranes moist - Neck Neck exam: Present: normal inspection - Respiratory Respiratory exam: Present: normal lung sounds bilaterally, wheezes (left sided and very faint). Absent: respiratory distress, rales, rhonchi, stridor - Cardiovascular Cardiovascular Exam: Present: regular rate, normal rhythm. Absent: systolic murmur, diastolic murmur, rubs, gallop - GI/Abdominal GI/Abdominal exam: Present: soft, normal bowel sounds - Extremities Exam Extremities exam: Present: normal inspection - Back Exam Back exam: Present: normal inspection - Neurological Exam Neurological exam: Present: alert, oriented X3 - Psychiatric Psychiatric exam: Present: normal affect, normal mood - Skin Skin exam: Present: warm, dry, intact, normal color. Absent: rash ED Course Vital Signs 03/08/20 03/08/20 00:47 02:10 Temperature 98.8 F Pulse Rate 95 H Pulse Rate [ 56 L Bilateral Throughout] Respiratory 18 Rate Respiratory 16 Rate [Bilateral Throughout] Blood Pressure 120/77 O2 Sat by Pulse 95 Oximetry ED Medical Decision Making - EKG Data -: EKG Interpreted by Me EKG shows normal: sinus rhythm, axis, intervals, QRS complexes, ST-T waves Rate: normal - EKG Data Interpretation: other (occational pvc) - Radiology Data CXR WNL - Medical Decision Making After neb treatment patient fell asleep and her O2 sat is 96% on room air. Seems to be breathing without distress. When I woke the patient up the patient is still was grabbing at the left flank and yelling out anytime she would move. We believe the patient likely has pulled a muscle will have some costochondritis. Patient be started on muscle relaxant and pain management and she will be discharged home. Critical care attestation.: If time is entered above; I have spent that time in minutes in the direct care of this critically ill patient, excluding procedure time. ED Disposition Clinical Impression: Costochondral chest pain Asthma attack Qualifiers: Asthma severity: mild Asthma persistence: unspecified Qualified Code(s): J45.901 - Unspecified asthma with (acute) exacerbation Disposition: -01 TO HOME OR SELFCARE Is pt being admited?: No Does the pt Need Aspirin: No Condition: Stable Instructions: Chest Pain (ED), Asthma Attack Prevention, Adult, Chest Wall Pain, [id number] Referrals: PRIMARY CARE, [Primary Care Provider] - 3-5 Days Time of Disposition: 02:36
[2020-03-08 02:58] VITALS: BP 128/72
== END 2020-03-08 02:58 | disposition home or self-care (01) ==
LOC: ED 00:07
DX: M94.0 Chondrocostal junction syndrome [Tietze] (principal); J45.901 Unspecified asthma with (acute) exacerbation; I11.0 Hypertensive heart disease with heart failure; I50.9 Heart failure, unspecified; E11.9 Type 2 diabetes mellitus without complications; K21.9 Gastro-esophageal reflux disease without esophagitis; M13.88 Other specified arthritis, other site; F41.9 Anxiety disorder, unspecified; J44.9 Chronic obstructive pulmonary disease, unspecified; Z98.51 Tubal ligation status; Z98.890 Other specified postprocedural states; Z91.010 Allergy to peanuts; Z91.013 Allergy to seafood; Z88.0 Allergy status to penicillin; Z88.1 Allergy status to other antibiotic agents
CPT/HCPCS: 71045; 93005; 94644; 99284; J7512

== ENCOUNTER 2020-03-26 11:00 | Outpatient (CLI) | payer MEDICARE | END 2020-03-26 11:01 | disposition home or self-care (01) | LOC: SLR 11:00 | PROVIDERS: ATTEND Internal Medicine | DX: G47.33 Obstructive sleep apnea (adult) (pediatric) (principal); R40.0 Somnolence; I10 Essential (primary) hypertension | CPT/HCPCS: 95810 ==

== ENCOUNTER 2020-05-07 14:55 | Emergency (ER) | payer MEDICARE ==
--- NOTE | 2020-05-07 15:12 | Event Note ---
ED Screening Note ED Screening Note: asthma l pleuritic cp out of some of her meds her pcp was called to [id number] for emergency he sent her here This initial assessment/diagnostic orders/clinical plan/treatment(s) is/are subject to change based on patients health status, clinical progression and re- assessment by fellow clinical providers in the ED. Further treatment and workup at subsequent clinical providers discretion. Patient/guardian urged not to elope from the ED as their condition may be serious if not clinically assessed and managed. Initial orders include: xr
[2020-05-07 15:14] VITALS: BP 123/87
[2020-05-07] MEDS ORDERED: IPRATROPIUM/ALBUTEROL SULFATE 3 ML AMPUL.NEB IH ONE (15:17)
--- NOTE | 2020-05-07 16:00 | XRay Report ---
CHEST PA AND LATERAL VIEWS INDICATION: sob. COMPARISON: 03/08/2020 FINDINGS: Support devices: None. Heart: Within normal limits. Lungs/Pleura: No acute pulmonary or pleural findings. IMPRESSION: 1. No acute findings. Signer Name: Jean Carlos Kamara MD Signed: 05/07/2020 3:55 PM Workstation Name: [id number]
--- NOTE | 2020-05-07 16:13 | Emergency Department Report ---
Minor Respiratory - HPI Chief Complaint: Adult Asthma Stated Complaint: ASTHMA Time Seen by Provider: 05/07/20 14:58 Duration: 5 Days Pain Location: Chest Severity: mild Minor Respiratory: Yes Able to Tolerate Fluids, Yes Cough, No Rhinorrhea, No Sore Throat, No Ear Pain, No Sick Contacts, No Hemoptysis, No Chest Pain, No Shortness of Breath, No Fever Other History: 54 YO AA COMES TO ER WITH WHEEZING. SHE IS OUT OF HER DUONEBS. HER PCP COULD NOT SEE HER TODAY. NO FEVER OR CHILLS. NO SOB OR CP. IN HER USUAL HEALTH ED Review of Systems ROS: Stated complaint: ASTHMA Other details as noted in HPI Comment: All other systems reviewed and negative ED Past Medical Hx - Past Medical History Previous Medical History?: Yes Hx Hypertension: Yes Hx Heart Attack/AMI: No Hx Congestive Heart Failure: Yes Hx Diabetes: Yes Hx Pulmonary Embolism: No Hx GERD: Yes Hx Liver Disease: No Hx Renal Disease: No Hx Sickle Cell Disease: No Hx Arthritis: Yes Hx Headaches / Migraines: No Hx Seizures: No Hx Kidney Stones: No Hx Psychiatric Treatment: Yes (Anxiety) Hx Asthma: Yes Hx COPD: Yes Hx Tuberculosis: No Hx HIV: No Additional medical history: Intubated x 8. heart murmur. osteoporosis. hearing loss in [place] - Surgical History Past Surgical History?: Yes Hx Coronary Stent: No Hx Open Heart Surgery: No Hx Pacemaker: No Hx Internal Defibrillator: No Hx Cholecystectomy: No Hx Appendectomy: No Hx Breast Surgery: No Additional Surgical History: cataracts, nasal surg, tubal ligation. bilateral foot. Left shoulder surgery, R. knee sx - Family History Family history: no significant - Social History Smoking Status: Never Smoker Substance Use Type: None - Medications Home Medications: Home Medications Medication Instructions Recorded Confirmed Last Taken Type Aspirin [Aspirin BABY CHEW TAB] 81 mg PO QDAY #30 tab.chew 01/06/20 02/05/20 Unknown Rx Furosemide [Lasix TAB] 20 mg PO DAILY@0600 #30 tablet 01/06/20 02/05/20 Unknown Rx Gabapentin 300 mg PO Q8HR #90 capsule 01/06/20 02/05/20 Unknown Rx Montelukast [Singulair] 10 mg PO QHS #30 tablet 01/06/20 02/05/20 Unknown Rx lisinopriL [Zestril TAB] 20 mg PO QDAY #30 tab 01/06/20 02/05/20 Unknown Rx metFORMIN [Glucophage] 500 mg PO QDAY 02/05/20 02/05/20 Unknown History Pantoprazole [Protonix] 40 mg PO QDAY #30 tablet 03/07/20 Unknown Rx Albuterol Mdi (or & Nicu Only) 2 puff IH QID PRN #1 inhalation 03/08/20 Unknown Rx [ProAir HFA Inhaler] Fluticasone [Flonase] 1 spray NS QDAY #1 bottle 05/07/20 Unknown Rx Ipratropium/Albuterol Sulfate 1 ampul IH Q6HR #1 box 05/07/20 Unknown Rx [DUONEB *Not for PRN Use*] predniSONE [Deltasone] 20 mg PO DAILY #5 tablet 05/07/20 Unknown Rx Minor Respiratory Exam - Exam General: Vital signs noted. No distress. Alert and acting appropriately. HEENT: Yes Moist Mucous Membranes, No Pharyngeal Erythema, No Pharyngeal Exudates, No Rhinorrhea, No Conjuctival Injection, No Frontal Tenderness, No Maxillary Tenderness Ear: Neither TM Bulge, Neither TM Erythema, Neither EAC Pain, Neither EAC Discharge Neck: Yes Supple, No Adenopathy Lungs: Yes Good Air Exchange, Yes Wheezes, No Ronchi, No Stridor, No Cough, No Labored Respirations, No Retractions, No Use of Accessory Muscles, No Other Abnormal Lung Sounds Heart: Yes Regular, No Murmur Abdomen: Yes Normal Bowel Sounds, No Tenderness, No Peritoneal Signs Skin: No Rash, No Edema Neurologic: Alert and oriented, no deficits. Musculoskeletal: Unremarkable. ED Course Vital Signs 05/07/20 15:12 Temperature 99.4 F Pulse Rate 83 Respiratory 18 Rate Blood Pressure 123/87 [Right] O2 Sat by Pulse 98 Oximetry ED Medical Decision Making - Radiology Data Radiology results: report reviewed, image reviewed NAP - Medical Decision Making Vital Signs 05/07/20 15:12 Temperature 99.4 F Pulse Rate 83 Respiratory 18 Rate Blood Pressure 123/87 [Right] O2 Sat by Pulse 98 Oximetry DUONEB GIVEN-- REPORTS IMMED RELIEF XRAY NOTED DC HOME WITH DC POC AND PCP FOLLOW UP- PT VERBALIZES UNDERSTANDING. - Differential Diagnosis RO PNA Critical care attestation.: If time is entered above; I have spent that time in minutes in the direct care of this critically ill patient, excluding procedure time. ED Disposition Clinical Impression: Asthma exacerbation, Medication refill Disposition: TO HOME OR SELFCARE Is pt being admited?: No Does the pt Need Aspirin: No Condition: Stable Instructions: Asthma, Adult Additional Instructions: MEDS PER ROUTINE WASH HANDS WHEN YOU LEAVE ER MEDS ORDERED TODAY SEE PCP IN FOLLOW UP YOU HAD PLANNED Prescriptions: predniSONE [Deltasone] 20 mg PO DAILY #5 tablet Ipratropium/Albuterol Sulfate [DUONEB *Not for PRN Use*] 1 ampul IH Q6HR #1 box Fluticasone [Flonase] 1 spray NS QDAY #1 bottle Referrals: PRIMARY CAREMD [Primary Care Provider] - 3-5 Days ALAINA PRUETT MD [Staff Physician] - 3-5 Days Time of Disposition: 16:16
[2020-05-07 16:46] LABS: Basophils % (Auto) 0.5 % (0.0-1.8); Eosinophils # (Auto) 0.2 K/mm3 (0.0-0.4); Eosinophils % (Auto) 3.9 % (0.0-4.3); Hematocrit 35.9 % (30.3-42.9); Hemoglobin 12.2 gm/dl (10.1-14.3); Lymphocytes # (Auto) 1.2 K/mm3 (1.2-5.4); Lymphocytes % (Auto) 20.5 % (13.4-35.0); Mean Corpuscular HGB Conc 34 % (30-34); Mean Corpuscular Volume 88 fl (79-97); Monocytes # (Auto) 0.2 K/mm3 (0.0-0.8); Monocytes % (Auto) 3.2 % (0.0-7.3); Platelet Count 265 K/mm3 (140-440); Red Blood Count 4.11 M/mm3 (3.65-5.03); Red Cell Distribution Width 13.7 % (13.2-15.2)
[2020-05-07 16:58] LABS: Creatinine,Urine 142.7 mg/dL (0.1-20.0); Protein/Creatinine Ratio,Urine 0.11
[2020-05-07 17:09] LABS: Alanine Aminotransferase 14 units/L (7-56); Albumin 4.6 g/dL (3.9-5); BUN/Creatinine Ratio 13; Blood Urea Nitrogen 12 mg/dL (7-17); Calcium 9.8 mg/dL (8.4-10.2); Hemolysis Index 12
== END 2020-05-07 16:15 | disposition home or self-care (01) ==
LOC: ED 14:55
DX: J45.901 Unspecified asthma with (acute) exacerbation (principal); Z76.0 Encounter for issue of repeat prescription; I50.9 Heart failure, unspecified; I11.0 Hypertensive heart disease with heart failure; E11.9 Type 2 diabetes mellitus without complications; K21.9 Gastro-esophageal reflux disease without esophagitis; M19.91 Primary osteoarthritis, unspecified site; F41.9 Anxiety disorder, unspecified; Z98.890 Other specified postprocedural states; Z79.84 Long term (current) use of oral hypoglycemic drugs; Z79.899 Other long term (current) drug therapy; Z88.1 Allergy status to other antibiotic agents; Z88.0 Allergy status to penicillin; Z91.013 Allergy to seafood; Z91.010 Allergy to peanuts
CPT/HCPCS: 36415; 71046; 80053; 82570; 84156; 85025; 94640; 94644

== ENCOUNTER 2020-05-18 15:42 | Emergency (ER) | payer MEDICARE ==
[2020-05-18] MEDS ORDERED: ALBUTEROL 2.5 MG/3 ML NEBU IH ONE (18:02)
[2020-05-18] MEDS ORDERED: dexAMETHasone 20 MG/5 ML VIAL IM ONE (18:02)
[2020-05-18] MEDS ORDERED: IPRATROPIUM 0.02% NEBU 2.5 ML IH ONE (18:02)
--- NOTE | 2020-05-18 18:09 | Event Note ---
ED Screening Note ED Screening Note: pt presents for SOB since yesterday +chest tightness states she has been using her neb tx 4x a day states that she used two treatments today no cough no fever no chills no N/V/D pmhx CHF, asthma, DM This initial assessment/diagnostic orders/clinical plan/treatment(s) is/are subject to change based on patients health status, clinical progression and re- assessment by fellow clinical providers in the ED. Further treatment and workup at subsequent clinical providers discretion. Patient/guardian urged not to elope from the ED as their condition may be serious if not clinically assessed and managed. Initial orders include: labs, CXR, EKG, UA
--- NOTE | 2020-05-18 18:30 | XRay Report ---
CHEST PA AND LATERAL VIEWS INDICATION: CP, SOB. COMPARISON: 05/07/2020 FINDINGS: Support devices: None. Heart: Within normal limits. Lungs/Pleura: No acute pulmonary or pleural findings. IMPRESSION: 1. No acute findings. Signer Name: Jean Carlos Kamara MD Signed: 05/18/2020 6:25 PM Workstation Name: [id number]
[2020-05-18 18:43] LABS: Basophils # (Auto) 0.1 K/mm3 (0.0-0.1); Basophils % (Auto) 1.7 % (0.0-1.8); Eosinophils # (Auto) 0.6 K/mm3 (0.0-0.4); Eosinophils % (Auto) 9.9 % (0.0-4.3); Hematocrit 36.4 % (30.3-42.9); Hemoglobin 12.3 gm/dl (10.1-14.3); Lymphocytes # (Auto) 2.3 K/mm3 (1.2-5.4); Lymphocytes % (Auto) 37.5 % (13.4-35.0); Mean Corpuscular HGB Conc 34 % (30-34); Mean Corpuscular Volume 88 fl (79-97); Monocytes # (Auto) 0.4 K/mm3 (0.0-0.8); Monocytes % (Auto) 6.8 % (0.0-7.3); Platelet Count 253 K/mm3 (140-440); Red Blood Count 4.14 M/mm3 (3.65-5.03); Red Cell Distribution Width 14.1 % (13.2-15.2)
[2020-05-18 19:05] LABS: Alanine Aminotransferase 13 units/L (7-56); Albumin 4.3 g/dL (3.9-5); BUN/Creatinine Ratio 12; Blood Urea Nitrogen 11 mg/dL (7-17); Calcium 9.2 mg/dL (8.4-10.2); Hemolysis Index 13
[2020-05-18 19:25] LABS: Bilirubin,Urine NEG (Negative); Blood,Urine SM (Negative); Color,Urine Straw (Yellow); Protein,Urine <15 mg/dL mg/dL (Negative); Urobilinogen,Urine < 2.0 mg/dL (<2.0)
--- NOTE | 2020-05-18 20:44 | Emergency Department Report ---
ED Shortness of Breath HPI - General Chief Complaint: Adult Asthma Stated Complaint: ASTHMA/CP Time Seen by Provider: 05/18/20 17:55 Source: patient Mode of arrival: Ambulatory Limitations: No Limitations - History of Present Illness Initial Comments: 54-year-old female, history of CHF, asthma, diabetes presents to ED reporting wheezing from her asthma since yesterday. Patient reports no improvement with her inhaler and nebulizer machine at home. She reports chest tightness. She denies any cough or fever. She denies any known contact with anyone who was tested positive for COVID-19. Complaint: "asthma attack" -: days(s) (1) Severity: moderate Consistency: intermittent Improves With: nothing Worsens With: exertion Known History Of: asthma, congestive heart failure Treatments Prior to Arrival: bronchodilator - Related Data Home Oxygen Therapy: No Home Medications Medication Instructions Recorded Confirmed Last Taken metFORMIN [Glucophage] 500 mg PO QDAY 02/05/20 02/05/20 Unknown Previous Rx's Medication Instructions Recorded Last Taken Type Aspirin [Aspirin BABY CHEW TAB] 81 mg PO QDAY #30 tab.chew 01/06/20 Unknown Rx Furosemide [Lasix TAB] 20 mg PO DAILY@0600 #30 tablet 01/06/20 Unknown Rx Gabapentin 300 mg PO Q8HR #90 capsule 01/06/20 Unknown Rx Montelukast [Singulair] 10 mg PO QHS #30 tablet 01/06/20 Unknown Rx lisinopriL [Zestril TAB] 20 mg PO QDAY #30 tab 01/06/20 Unknown Rx Pantoprazole [Protonix] 40 mg PO QDAY #30 tablet 03/07/20 Unknown Rx Albuterol Mdi (or & Nicu Only) 2 puff IH QID PRN #1 inhalation 03/08/20 Unknown Rx [ProAir HFA Inhaler] Fluticasone [Flonase] 1 spray NS QDAY #1 bottle 05/07/20 Unknown Rx Ipratropium/Albuterol Sulfate 1 ampul IH Q6HR #1 box 05/07/20 Unknown Rx [DUONEB *Not for PRN Use*] predniSONE [Deltasone] 20 mg PO DAILY #5 tablet 05/07/20 Unknown Rx Albuterol Sulfate [Proventil Hfa] 2 puff IH Q4HR PRN #1 hfa.aer.ad 05/18/20 Unknown Rx predniSONE [Deltasone] 50 mg PO QDAY #5 tab 05/18/20 Unknown Rx Allergies Allergy/AdvReac Type Severity Reaction Status Date / Time amoxicillin Allergy Anaphylaxis Verified 03/29/19 00:50 Penicillins Allergy Rash Verified 07/25/17 08:05 seafood Allergy Severe Anaphylaxis Uncoded 03/16/17 01:08 peanuts Allergy Anaphylaxis Uncoded 09/20/19 12:06 ED Review of Systems ROS: Stated complaint: ASTHMA/CP Other details as noted in HPI Comment: All other systems reviewed and negative Constitutional: denies: chills, fever Respiratory: shortness of breath, wheezing. denies: cough Musculoskeletal: other (Denies any lower extremity swelling) Psychiatric: anxiety ED Past Medical Hx - Past Medical History Previous Medical History?: Yes Hx Hypertension: Yes Hx Heart Attack/AMI: No Hx Congestive Heart Failure: Yes Hx Diabetes: Yes Hx Pulmonary Embolism: No Hx GERD: Yes Hx Liver Disease: No Hx Renal Disease: No Hx Sickle Cell Disease: No Hx Arthritis: Yes Hx Headaches / Migraines: No Hx Seizures: No Hx Kidney Stones: No Hx Psychiatric Treatment: Yes (Anxiety) Hx Asthma: Yes Hx COPD: Yes Hx Tuberculosis: No Hx HIV: No Additional medical history: Intubated x 8. heart murmur. osteoporosis. hearing loss in [place] - Surgical History Past Surgical History?: Yes Hx Coronary Stent: No Hx Open Heart Surgery: No Hx Pacemaker: No Hx Internal Defibrillator: No Hx Cholecystectomy: No Hx Appendectomy: No Hx Breast Surgery: No Additional Surgical History: cataracts, nasal surg, tubal ligation. bilateral foot. Left shoulder surgery, R. knee sx - Social History Smoking Status: Never Smoker Substance Use Type: None - Medications Home Medications: Home Medications Medication Instructions Recorded Confirmed Last Taken Type Aspirin [Aspirin BABY CHEW TAB] 81 mg PO QDAY #30 tab.chew 01/06/20 02/05/20 Unknown Rx Furosemide [Lasix TAB] 20 mg PO DAILY@0600 #30 tablet 01/06/20 02/05/20 Unknown Rx Gabapentin 300 mg PO Q8HR #90 capsule 01/06/20 02/05/20 Unknown Rx Montelukast [Singulair] 10 mg PO QHS #30 tablet 01/06/20 02/05/20 Unknown Rx lisinopriL [Zestril TAB] 20 mg PO QDAY #30 tab 01/06/20 02/05/20 Unknown Rx metFORMIN [Glucophage] 500 mg PO QDAY 02/05/20 02/05/20 Unknown History Pantoprazole [Protonix] 40 mg PO QDAY #30 tablet 03/07/20 Unknown Rx Albuterol Mdi (or & Nicu Only) 2 puff IH QID PRN #1 inhalation 03/08/20 Unknown Rx [ProAir HFA Inhaler] Fluticasone [Flonase] 1 spray NS QDAY #1 bottle 05/07/20 Unknown Rx Ipratropium/Albuterol Sulfate 1 ampul IH Q6HR #1 box 05/07/20 Unknown Rx [DUONEB *Not for PRN Use*] predniSONE [Deltasone] 20 mg PO DAILY #5 tablet 05/07/20 Unknown Rx Albuterol Sulfate [Proventil Hfa] 2 puff IH Q4HR PRN #1 hfa.aer.ad 05/18/20 Unknown Rx predniSONE [Deltasone] 50 mg PO QDAY #5 tab 05/18/20 Unknown Rx ED Physical Exam - General Limitations: No Limitations General appearance: alert, in no apparent distress - Head Head exam: Present: atraumatic, normocephalic - Eye Eye exam: Present: normal appearance, EOMI - ENT ENT exam: Present: mucous membranes moist - Neck Neck exam: Present: normal inspection - Respiratory Respiratory exam: Present: normal lung sounds bilaterally. Absent: respiratory distress - Cardiovascular Cardiovascular Exam: Present: normal rhythm, tachycardia - GI/Abdominal GI/Abdominal exam: Present: soft. Absent: distended, tenderness - Extremities Exam Extremities exam: Present: normal inspection. Absent: pedal edema, calf tenderness - Neurological Exam Neurological exam: Present: alert, oriented X3 - Psychiatric Psychiatric exam: Present: normal affect, normal mood - Skin Skin exam: Present: warm, dry, intact, normal color ED Course Vital Signs 05/18/20 05/18/20 17:25 21:41 Temperature 97.4 F L Pulse Rate 103 H 67 Respiratory 22 20 Rate Blood Pressure 117/82 129/72 [Right] O2 Sat by Pulse 97 100 Oximetry ED Medical Decision Making - Lab Data Result diagrams: 05/18/20 18:27 05/18/20 18:27 - EKG Data -: EKG Interpreted by Me EKG shows normal: sinus rhythm, axis, intervals, QRS complexes, ST-T waves Rate: normal - EKG Data Interpretation: other (Occasional PVCs present) - Radiology Data Radiology results: report reviewed, image reviewed - Medical Decision Making Patient given nebulizer treatment, currently feeling much better. Labs are unremarkable. Chest x-ray shows no acute findings. O2 sats are normal. Will discharge at this time. Outpatient follow-up advised, return precautions given. - Differential Diagnosis Asthma, pneumonia, CHF Critical care attestation.: If time is entered above; I have spent that time in minutes in the direct care of this critically ill patient, excluding procedure time. ED Disposition Clinical Impression: Asthma exacerbation Disposition: TO HOME OR SELFCARE Is pt being admited?: No Condition: Stable Instructions: Asthma, Adult Prescriptions: predniSONE [Deltasone] 50 mg PO QDAY #5 tab Albuterol Sulfate [Proventil Hfa] 2 puff IH Q4HR PRN #1 hfa.aer.ad PRN Reason: Wheezing Referrals: PRIMARY CARE, [Primary Care Provider] - 3-5 Days Time of Disposition: 20:44
[2020-05-18 21:42] VITALS: BP 129/72
== END 2020-05-18 21:41 | disposition home or self-care (01) ==
LOC: ED 15:42
DX: J45.901 Unspecified asthma with (acute) exacerbation (principal); I11.0 Hypertensive heart disease with heart failure; I50.9 Heart failure, unspecified; E11.9 Type 2 diabetes mellitus without complications; K21.9 Gastro-esophageal reflux disease without esophagitis; M19.91 Primary osteoarthritis, unspecified site; F41.9 Anxiety disorder, unspecified; Z98.890 Other specified postprocedural states; Z79.899 Other long term (current) drug therapy; Z88.1 Allergy status to other antibiotic agents; Z88.0 Allergy status to penicillin; Z91.013 Allergy to seafood; Z91.010 Allergy to peanuts
CPT/HCPCS: 36415; 71046; 80053; 81001; 83880; 84484; 85025; 93005; 94640; 96372; 99284; J1100

== ENCOUNTER 2020-07-23 11:00 | Outpatient (CLI) | payer MEDICARE | END 2020-07-23 11:01 | disposition home or self-care (01) | LOC: SLR 11:00 | PROVIDERS: ATTEND Internal Medicine | DX: G47.30 Sleep apnea, unspecified (principal) | CPT/HCPCS: 95810 ==

== ENCOUNTER 2020-07-24 11:23 | Outpatient (CLI) | payer MEDICARE | END 2020-07-24 11:24 | disposition home or self-care (01) | LOC: SLR 11:23 | PROVIDERS: ATTEND Internal Medicine | DX: G47.419 Narcolepsy without cataplexy (principal); G47.30 Sleep apnea, unspecified | CPT/HCPCS: 95805 ==

== ENCOUNTER 2020-08-09 16:42 | Inpatient (IN) | payer MEDICARE ==
[2020-08-09] MEDS ORDERED: ALBUTEROL 2.5 MG/3 ML NEBU IH ONE ×2 (17:10→17:11)
[2020-08-09] MEDS ORDERED: IPRATROPIUM 0.02% NEBU 2.5 ML IH ONE ×2 (17:10)
[2020-08-09] MEDS ORDERED: NITROGLYCERIN 0.4 MG TAB SUBL SL PRN (17:11)
[2020-08-09] MEDS ORDERED: ASPIRIN 81 MG TAB CHEW PO ONE (17:17)
--- NOTE | 2020-08-09 17:18 | Emergency Department Report ---
ED General Adult HPI - General Chief complaint: Dyspnea/Respdistress Stated complaint: DIFFICULTY BREATHING PUI?: Yes Time Seen by Provider: 08/09/20 16:56 Source: patient, EMS ( EMS documentation not available at time of chart dictation ), RN notes reviewed, old records reviewed Mode of arrival: Stretcher Limitations: Physical Limitation, Other (Patient hard of hearing. Patient currently on BiPAP.) - History of Present Illness Initial comments: The patient was evaluated in the emergency department for symptoms described in the history of present illness. He/she was evaluated in the context of the global COVID-19 pandemic, which necessitated consideration that the patient might be at risk for infection with the virus that causes COVID-19. Institutional protocols and algorithms that pertain to the evaluation of patie nts at risk for COVID-19 are in a state of rapid change based on information released by regulatory bodies including the CDC and federal and state organizations. These policies and algorithms were followed during the patient's care in the emergency department. Please note that these policies, procedures and recommendations changed on a rapid basis. During the entire history and physical examination, I had on complete personal protective equipment. Past medical history: Obesity, body mass index 31, diabetes, hypertension, CHF, COPD, anxiety, osteoporosis, hiatal hernia, hearing impairment The patient is a 54-year-old female. She is brought to the hospital by emergency medical services with a complaint of chest tightness, cough, wheezing and shortness of breath. EMS started the patient on CPAP in the field, give steroids, magnesium sulfate, and albuterol. Upon arrival to the emergency room, the patient was still symptomatic, and required initiation of CPAP therapy. She complains of cough, nasal congestion, chest tightness. She is not sure if she has had loss of taste or smell. She is not sure if she has had a fever. She is not sure if she had a Covid vaccination. She is not sure if she has been exposed to Covid. She indicates that she feels better than when she arrived, but she is still having cough, wheezing, shortness of breath and chest tightness. -: This morning Location: chest Radiation: other (Chest tightness radiates up to neck) Quality: other (Patient does not describe the quality.) Consistency: intermittent Improves with: none Worsens with: none - Related Data Home Medications Medication Instructions Recorded Confirmed Last Taken metFORMIN [Glucophage] 500 mg PO QDAY 02/05/20 02/05/20 Unknown Previous Rx's Medication Instructions Recorded Last Taken Type Aspirin [Aspirin BABY CHEW TAB] 81 mg PO QDAY #30 tab.chew 01/06/20 Unknown Rx Furosemide [Lasix TAB] 20 mg PO DAILY@0600 #30 tablet 01/06/20 Unknown Rx Gabapentin 300 mg PO Q8HR #90 capsule 01/06/20 Unknown Rx Montelukast [Singulair] 10 mg PO QHS #30 tablet 01/06/20 Unknown Rx lisinopriL [Zestril TAB] 20 mg PO QDAY #30 tab 01/06/20 Unknown Rx Pantoprazole [Protonix] 40 mg PO QDAY #30 tablet 03/07/20 Unknown Rx Albuterol Mdi (or & Nicu Only) 2 puff IH QID PRN #1 inhalation 03/08/20 Unknown Rx [ProAir HFA Inhaler] Fluticasone [Flonase] 1 spray NS QDAY #1 bottle 05/07/20 Unknown Rx Ipratropium/Albuterol Sulfate 1 ampul IH Q6HR #1 box 05/07/20 Unknown Rx [DUONEB *Not for PRN Use*] predniSONE [Deltasone] 20 mg PO DAILY #5 tablet 05/07/20 Unknown Rx Albuterol Sulfate [Proventil Hfa] 2 puff IH Q4HR PRN #1 hfa.aer.ad 05/18/20 Unknown Rx predniSONE [Deltasone] 50 mg PO QDAY #5 tab 05/18/20 Unknown Rx Allergies Allergy/AdvReac Type Severity Reaction Status Date / Time amoxicillin Allergy Anaphylaxis Verified 03/29/19 00:50 Penicillins Allergy Rash Verified 07/25/17 08:05 seafood Allergy Severe Anaphylaxis Uncoded 03/16/17 01:08 peanuts Allergy Anaphylaxis Uncoded 09/20/19 12:06 ED Review of Systems ROS: Stated complaint: DIFFICULTY BREATHING Other details as noted in HPI Constitutional: denies: fever Eyes: denies: eye discharge ENT: congestion Respiratory: cough, shortness of breath, SOB with exertion, SOB at rest Cardiovascular: chest pain Gastrointestinal: denies: abdominal pain Musculoskeletal: denies: back pain Neurological: weakness Psychiatric: anxiety Hematological/Lymphatic: denies: easy bleeding ED Past Medical Hx - Past Medical History Hx Hypertension: Yes Hx Heart Attack/AMI: No Hx Congestive Heart Failure: Yes Hx Diabetes: Yes Hx Pulmonary Embolism: No Hx GERD: Yes Hx Liver Disease: No Hx Renal Disease: No Hx Sickle Cell Disease: No Hx Arthritis: Yes Hx Headaches / Migraines: No Hx Seizures: No Hx Kidney Stones: No Hx Psychiatric Treatment: Yes (Anxiety) Hx Asthma: Yes Hx COPD: Yes Hx Tuberculosis: No Hx HIV: No Additional medical history: Intubated x 9. heart murmur. osteoporosis. hearing loss in [place] - Surgical History Hx Coronary Stent: No Hx Open Heart Surgery: No Hx Pacemaker: No Hx Internal Defibrillator: No Hx Cholecystectomy: No Hx Appendectomy: No Hx Breast Surgery: No Additional Surgical History: cataracts, nasal surg, tubal ligation. bilateral foot. Left shoulder surgery, R. knee sx - Social History Smoking Status: Never Smoker - Medications Home Medications: Home Medications Medication Instructions Recorded Confirmed Last Taken Type Aspirin [Aspirin BABY CHEW TAB] 81 mg PO QDAY #30 tab.chew 01/06/20 02/05/20 Unknown Rx Furosemide [Lasix TAB] 20 mg PO DAILY@0600 #30 tablet 01/06/20 02/05/20 Unknown Rx Gabapentin 300 mg PO Q8HR #90 capsule 01/06/20 02/05/20 Unknown Rx Montelukast [Singulair] 10 mg PO QHS #30 tablet 01/06/20 02/05/20 Unknown Rx lisinopriL [Zestril TAB] 20 mg PO QDAY #30 tab 01/06/20 02/05/20 Unknown Rx metFORMIN [Glucophage] 500 mg PO QDAY 02/05/20 02/05/20 Unknown History Pantoprazole [Protonix] 40 mg PO QDAY #30 tablet 03/07/20 Unknown Rx Albuterol Mdi (or & Nicu Only) 2 puff IH QID PRN #1 inhalation 03/08/20 Unknown Rx [ProAir HFA Inhaler] Fluticasone [Flonase] 1 spray NS QDAY #1 bottle 05/07/20 Unknown Rx Ipratropium/Albuterol Sulfate 1 ampul IH Q6HR #1 box 05/07/20 Unknown Rx [DUONEB *Not for PRN Use*] predniSONE [Deltasone] 20 mg PO DAILY #5 tablet 05/07/20 Unknown Rx Albuterol Sulfate [Proventil Hfa] 2 puff IH Q4HR PRN #1 hfa.aer.ad 05/18/20 Unknown Rx predniSONE [Deltasone] 50 mg PO QDAY #5 tab 05/18/20 Unknown Rx ED Physical Exam - General Limitations: Physical Limitation, Other (Patient hard of hearing) General appearance: alert, anxious, in distress, obese - Head Head exam: Present: atraumatic, normocephalic - Eye Eye exam: Present: normal appearance, EOMI. Absent: nystagmus - ENT ENT exam: Present: normal exam, normal orophraynx, mucous membranes moist, mercedes l external ear exam - Neck Neck exam: Present: normal inspection, full ROM. Absent: tenderness, meningismus - Respiratory Respiratory exam: Present: respiratory distress, wheezes, rhonchi, accessory muscle use. Absent: rales, stridor - Cardiovascular Cardiovascular Exam: Present: normal rhythm, tachycardia, normal heart sounds. Absent: systolic murmur, diastolic murmur, rubs, gallop - GI/Abdominal GI/Abdominal exam: Present: soft. Absent: distended, tenderness, guarding, rebound, rigid, pulsatile mass - Extremities Exam Extremities exam: Present: normal inspection, full ROM, other (2+ pulses noted in the bilateral upper and lower extremities. There is no palpable cord. negative Homans sign. Muscular compartments are soft. The pelvis is stable.). Absent: pedal edema, calf tenderness - Back Exam Back exam: Present: normal inspection. Absent: tenderness, CVA tenderness (R), CVA tenderness (L), paraspinal tenderness, vertebral tenderness - Neurological Exam Neurological exam: Present: alert, other (No facial droop. Tongue midline. Extraocular movements intact bilaterally. Facial sensation intact to light touch in V1, V2, V3 distribution bilaterally. 5 and a 5 strength in 4 extremities. Sensation intact to light touch in 4 extremities.) - Psychiatric Psychiatric exam: Present: anxious - Skin Skin exam: Present: warm, dry, intact, normal color. Absent: rash ED Course Vital Signs 08/09/20 08/09/20 08/09/20 16:45 16:51 17:07 Temperature 98.9 F Pulse Rate 117 H 105 H Pulse Rate [ Anterior Bilateral Throughout] Respiratory 28 H 28 H Rate Respiratory Rate [Anterior Bilateral Throughout] Blood Pressure 162/127 162/27 O2 Sat by Pulse 100 99 99 Oximetry 08/09/20 17:20 Temperature Pulse Rate Pulse Rate [ 110 H Anterior Bilateral Throughout] Respiratory Rate Respiratory 28 H Rate [Anterior Bilateral Throughout] Blood Pressure O2 Sat by Pulse Oximetry - Reevaluation(s) Reevaluation #1: 08/09/20 17:16 Differential diagnosis, including but not limited to: COVID-19, asthma exacerbation, COPD exacerbation, CHF exacerbation, GERD, gastritis, hiatal hernia, acute coronary syndrome Assessment and plan: 54-year-old female with history of CHF, COPD, intubation x8/9, presents to the ER initially on CPAP, with cough, wheezing and shortness of breath, suspicious for asthma/COPD exacerbation. Tachycardia and tachypnea are likely secondary to reactive airways disease/COPD exacerbation. Patient denies leg pain or leg swelling. Patient indicates no recent surgery or travel. Patient will be placed on isolation, continued on BiPAP, given additional albuterol, Atrovent, x-ray the chest will be obtained, EKG will be obtained, appropriate laboratory studies will be obtained, Covid cytokine markers will be sent, she was already given steroids, plan to admit the patient to the medical service once initial diagnostics have resulted. Have discussed this plan of care with the patient, who verbalized understanding, and is amenable to this plan of care. Please note that this patient has had 4 CT scans of the chest in the past at this facility alone, 2012, 2015, 2016, 2019, all of which have been negative for pulmonary embolism. 08/09/20 17:19 08/09/20 18:48 ABG reviewed and appreciated. Patient appears improved. We will attempt trial of nasal cannula. Laboratory studies reviewed and appreciated. We will admit to the medical service under the care of Dr. Carmen Goldsmith ED Medical Decision Making - Lab Data Result diagrams: 08/09/20 17:22 Vital Signs 08/09/20 08/09/20 16:51 17:07 Temperature 98.9 F Pulse Rate 117 H 105 H Respiratory 28 H 28 H Rate Blood Pressure 162/127 162/27 O2 Sat by Pulse 99 99 Oximetry Lab Results 08/09/20 08/09/20 08/09/20 Range/Units 17:22 17:22 17:22 D-Dimer (0-234) ng/mlDDU ABG pH (7.350-7.450) pH Units ABG pCO2 mm Hg ABG pO2 (80.0-90.0) mm Hg ABG HCO3 (20.0-26.0) mmol/L ABG O2 Saturation (95.0-99.0) % ABG O2 Content (0.0-44) ABG Base Excess (-2.0-3.0) mmol/L ABG Hemoglobin (12.0-16.0) gm/dl ABG Carboxyhemoglobin (0.0-5.0) % ABG Methemoglobin (0.0-1.5) % Oxyhemoglobin (95.0-99.0) % FiO2 % Sodium 138 (137-145) mmol/L Chloride 102.6 (98-107) mmol/L Carbon Dioxide 26 (22-30) mmol/L Anion Gap 14 mmol/L BUN 12 (7-17) mg/dL Creatinine 1.0 (0.6-1.2) mg/dL Estimated GFR > 60 ml/min BUN/Creatinine Ratio 12 % Glucose 228 H (65-100) mg/dL Lactic Acid 1.90 (0.7-2.0) mmol/L Calcium 8.9 (8.4-10.2) mg/dL Magnesium 2.70 H (1.7-2.3) mg/dL Ferritin (10.0-200.0) ng/mL Total Bilirubin 0.20 (0.1-1.2) mg/dL AST 15 (5-40) units/L ALT 15 (7-56) units/L Alkaline Phosphatase 81 (35-129) units/L Lactate Dehydrogenase 269 H (91-180) units/L Total Creatine Kinase 271 H (30-135) units/L Troponin T < 0.010 (0.00-0.029) ng/mL C-Reactive Protein 2.00 H (0.00-1.30) mg/dL NT-Pro-B Natriuret Pep 266.4 (0-900) pg/mL Total Protein 6.5 (6.3-8.2) g/dL Albumin 4.0 (3.9-5) g/dL Albumin/Globulin Ratio 1.6 % 08/09/20 08/09/20 08/09/20 Range/Units 17:22 17:22 17:22 D-Dimer 243.07 H (0-234) ng/mlDDU ABG pH (7.350-7.450) pH Units ABG pCO2 mm Hg ABG pO2 (80.0-90.0) mm Hg ABG HCO3 (20.0-26.0) mmol/L ABG O2 Saturation (95.0-99.0) % ABG O2 Content (0.0-44) ABG Base Excess (-2.0-3.0) mmol/L ABG Hemoglobin (12.0-16.0) gm/dl ABG Carboxyhemoglobin (0.0-5.0) % ABG Methemoglobin (0.0-1.5) % Oxyhemoglobin (95.0-99.0) % FiO2 % Sodium (137-145) mmol/L Chloride (98-107) mmol/L Carbon Dioxide (22-30) mmol/L Anion Gap mmol/L BUN (7-17) mg/dL Creatinine (0.6-1.2) mg/dL Estimated GFR ml/min BUN/Creatinine Ratio % Glucose 233 H (65-100) mg/dL Lactic Acid (0.7-2.0) mmol/L Calcium (8.4-10.2) mg/dL Magnesium (1.7-2.3) mg/dL Ferritin 119.9 (10.0-200.0) ng/mL Total Bilirubin (0.1-1.2) mg/dL AST (5-40) units/L ALT (7-56) units/L Alkaline Phosphatase (35-129) units/L Lactate Dehydrogenase 248 H (91-180) units/L Total Creatine Kinase (30-135) units/L Troponin T (0.00-0.029) ng/mL C-Reactive Protein 2.10 H (0.00-1.30) mg/dL NT-Pro-B Natriuret Pep (0-900) pg/mL Total Protein (6.3-8.2) g/dL Albumin (3.9-5) g/dL Albumin/Globulin Ratio % 08/09/ Range/Units 18:09 D-Dimer (0-234) ng/mlDDU ABG pH 7.404 (7.350-7.450) pH Units ABG pCO2 41.0 mm Hg ABG pO2 258.0 H (80.0-90.0) mm Hg ABG HCO3 25.1 (20.0-26.0) mmol/L ABG O2 Saturation 99.4 H (95.0-99.0) % ABG O2 Content 17.8 (0.0-44) ABG Base Excess 0.3 (-2.0-3.0) mmol/L ABG Hemoglobin 12.5 (12.0-16.0) gm/dl ABG Carboxyhemoglobin 1.0 (0.0-5.0) % ABG Methemoglobin 0.6 (0.0-1.5) % Oxyhemoglobin 97.9 (95.0-99.0) % FiO2 60 % Sodium (137-145) mmol/L Chloride (98-107) mmol/L Carbon Dioxide (22-30) mmol/L Anion Gap mmol/L BUN (7-17) mg/dL Creatinine (0.6-1.2) mg/dL Estimated GFR ml/min BUN/Creatinine Ratio % Glucose (65-100) mg/dL Lactic Acid (0.7-2.0) mmol/L Calcium (8.4-10.2) mg/dL Magnesium (1.7-2.3) mg/dL Ferritin (10.0-200.0) ng/mL Total Bilirubin (0.1-1.2) mg/dL AST (5-40) units/L ALT (7-56) units/L Alkaline Phosphatase (35-129) units/L Lactate Dehydrogenase (91-180) units/L Total Creatine Kinase (30-135) units/L Troponin T (0.00-0.029) ng/mL C-Reactive Protein (0.00-1.30) mg/dL NT-Pro-B Natriuret Pep (0-900) pg/mL Total Protein (6.3-8.2) g/dL Albumin (3.9-5) g/dL Albumin/Globulin Ratio % Vital Signs 08/09/20 08/09/20 08/09/20 16:45 16:51 17:07 Temperature 98.9 F Pulse Rate 117 H 105 H Pulse Rate [ Anterior Bilateral Throughout] Respiratory 28 H 28 H Rate Respiratory Rate [Anterior Bilateral Throughout] Blood Pressure 162/127 162/27 O2 Sat by Pulse 100 99 99 Oximetry 08/09/20 17:20 Temperature Pulse Rate Pulse Rate [ 110 H Anterior Bilateral Throughout] Respiratory Rate Respiratory 28 H Rate [Anterior Bilateral Throughout] Blood Pressure O2 Sat by Pulse Oximetry - EKG Data -: EKG Interpreted by Me EKG shows normal: sinus rhythm Rate: normal - EKG Data 08/09/20 17:53 EKG interpreted at 17: 46 Sinus rhythm, 99 bpm. Normal axis, motion artifact, QTC 451 ms. This EKG is abnormal. The EKG is not a STEMI. - Radiology Data Radiology results: report reviewed, image reviewed interpreted by me: 1 view x-ray of the chest, interpreted by myself, hyperinflated lungs, no osseous pathology, cardiac silhouette unremarkable, no obvious pneumothorax, no obvious infiltrate. [facility] [address] [place] [address] XRay Report Signed Patient: EDIE RENDON MR#: [id number] : 1965 Acct:[id number] Age/Sex: 54 / F ADM Date: 08/09/20 Loc: ED Attending Dr: Ordering Physician: MAYA DRAPER MD Date of Service: 08/09/20 Procedure(s): XR chest 1V ap Accession Number(s): [id number] cc: MAYA DRAPER MD Fluoro Time In Minutes: CHEST 1 VIEW 08/09/2020 5:13 PM INDICATION / CLINICAL INFORMATION: Dyspnea. COMPARISON: 05/18/20 FINDINGS: SUPPORT DEVICES: None. HEART / MEDIASTINUM: No significant abnormality. LUNGS / PLEURA: No significant pulmonary or pleural abnormality. No pneumothorax. ADDITIONAL FINDINGS: No significant additional findings. IMPRESSION: 1. No acute findings. No change. Signer Name: Rhys Santacruz MD Signed: 08/09/2020 6:16 PM Workstation Name: [id number] Transcribed By: DT Dictated By: Real Santacruz MD Electronically Authenticated By: Real Santacruz MD Signed Date/Time: 08/09/201815 DD/ 14 Critical Care Time: Yes Critical care time in (mins) excluding proc time.: 35 Critical care attestation.: If time is entered above; I have spent that time in minutes in the direct care of this critically ill patient, excluding procedure time. ED Disposition Clinical Impression: COPD exacerbation, Asthma exacerbation, Chest pain, Suspected 2019 novel coronavirus infection Disposition: DC-09 OP ADMIT IP TO THIS HOSP Is pt being admited?: Yes Does the pt Need Aspirin: Yes Condition: Stable Instructions: Nonspecific Chest Pain, Adult, Chronic Obstructive Pulmonary Disease (ED) Referrals: PRIMARY CARE, [Primary Care Provider] - 3-5 Days Heart Score - HEART Score History: Slightly suspicious EKG: Non-specific Age: 45-65 Risk factors: > 3 risk factors or hx of atherosclerotic disease Troponin: < normal limit HEART Score: 4 - EKG Read Time Time EKG Completed: 17:45 EKG Read Time: 17:46 - Critical Actions Critical Actions: 4-6 pts:12-16.6% risk of adverse cardiac event. Should be admitted
--- NOTE | 2020-08-09 18:20 | XRay Report ---
CHEST 1 VIEW 08/09/2020 5:13 PM INDICATION / CLINICAL INFORMATION: Dyspnea. COMPARISON: 05/18/20 FINDINGS: SUPPORT DEVICES: None. HEART / MEDIASTINUM: No significant abnormality. LUNGS / PLEURA: No significant pulmonary or pleural abnormality. No pneumothorax. ADDITIONAL FINDINGS: No significant additional findings. IMPRESSION: 1. No acute findings. No change. Signer Name: Rhys Santacruz MD Signed: 08/09/2020 6:16 PM Workstation Name: [id number]
[2020-08-09 18:25] LABS: ABG Base Excess 0.3 mmol/L (-2.0-3.0); ABG HCO3 25.1 mmol/L (20.0-26.0); ABG Methemoglobin 0.6 % (0.0-1.5); ABG Oxygen Saturation 99.4 % (95.0-99.0); ABG PH 7.404 pH Units (7.350-7.450)
[2020-08-09 18:29] LABS: C-Reactive Protein 2.1 mg/dL (0.00-1.30)
[2020-08-09 18:46] LABS: Alanine Aminotransferase 15 units/L (7-56); BUN/Creatinine Ratio 12; Blood Urea Nitrogen 12 mg/dL (7-17); Calcium 8.9 mg/dL (8.4-10.2); Hemolysis Index 35
[2020-08-09] MEDS ORDERED: DOXYCYCLINE 100 MG CAP PO ONE (18:49)
[2020-08-09 20:48] LABS: INR 1.38 (0.87-1.13); Partial Thromboplastin Time 33.6 Sec. (24.2-36.6)
[2020-08-09 20:51] LABS: Hematocrit 34.8 % (30.3-42.9); Hemoglobin 11.9 gm/dl (10.1-14.3); Mean Corpuscular HGB Conc 34 % (30-34); Mean Corpuscular Volume 88 fl (79-97); Platelet Count 266 K/mm3 (140-440); Red Blood Count 3.96 M/mm3 (3.65-5.03)
[2020-08-09 22:39] LABS: Total Cells Counted 100
[2020-08-09 22:40] LABS: Band Neutrophils # (Manual) 0.1 K/mm3; Burr Cells Few; Ovalocytes Rare
[2020-08-09 22:41] LABS: Platelet Estimate Consistent w Auto
--- NOTE | 2020-08-10 00:02 | History and Physical Report ---
History of Present Illness Date of examination: 08/09/20 Date of admission: 08/09/20 19:41 Chief complaint: Shortness of breath and wheezing for 2 days History of present illness: 54-year-old female comes in for chest tightness coughing and wheezing and shortness of breath. This has been going on for 2 days. Patient has a history of CPAP and intubations in the past. No fever or chills. No exposure to coronavirus. No loss of taste or smell. Patient required CPAP treatment in the emergency room. Hypoxic at the time of arrival. - Past Medical History --Hypertension: Yes --Congestive Heart Failure: Yes --Diabetes: Yes --GERD: Yes --Arthritis: Yes --Psychiatric Treatment: Yes (Anxiety) --Asthma: Yes --COPD: Yes Additional medical history: Intubated x 9. heart murmur. osteoporosis. he aring loss in L. [facility]ATAL [place]ERN[place] - Surgical History cataracts, nasal surg, tubal ligation. bilateral foot. Left shoulder surgery, R. knee sx - Social History Smoking Status: Never Smoker Family history Htn Review of Systems ROS: Stated complaint: DIFFICULTY BREATHING Other details as noted in HPI Constitutional: denies: fever Eyes: denies: eye discharge ENT: congestion Respiratory: cough, shortness of breath, SOB with exertion, SOB at rest Cardiovascular: chest pain Gastrointestinal: denies: abdominal pain Musculoskeletal: denies: back pain Neurological: weakness Psychiatric: anxiety Hematological/Lymphatic: denies: easy bleeding Medications and Allergies Allergies Allergy/AdvReac Type Severity Reaction Status Date / Time amoxicillin Allergy Anaphylaxis Verified 03/29/19 00:50 Penicillins Allergy Rash Verified 07/25/17 08:05 seafood Allergy Severe Anaphylaxis Uncoded 03/16/17 01:08 peanuts Allergy Anaphylaxis Uncoded 09/20/19 12:06 Home Medications Medication Instructions Recorded Confirmed Last Taken Type Aspirin [Aspirin BABY CHEW TAB] 81 mg PO QDAY #30 tab.chew 01/06/20 02/05/20 Unknown Rx Furosemide [Lasix TAB] 20 mg PO DAILY@0600 #30 tablet 01/06/20 02/05/20 Unknown Rx Gabapentin 300 mg PO Q8HR #90 capsule 01/06/20 02/05/20 Unknown Rx Montelukast [Singulair] 10 mg PO QHS #30 tablet 01/06/20 02/05/20 Unknown Rx lisinopriL [Zestril TAB] 20 mg PO QDAY #30 tab 01/06/20 02/05/20 Unknown Rx metFORMIN [Glucophage] 500 mg PO QDAY 02/05/20 02/05/20 Unknown History Pantoprazole [Protonix] 40 mg PO QDAY #30 tablet 03/07/20 Unknown Rx Albuterol Mdi (or & Nicu Only) 2 puff IH QID PRN #1 inhalation 03/08/20 Unknown Rx [ProAir HFA Inhaler] Fluticasone [Flonase] 1 spray NS QDAY #1 bottle 05/07/20 Unknown Rx Ipratropium/Albuterol Sulfate 1 ampul IH Q6HR #1 box 05/07/20 Unknown Rx [DUONEB *Not for PRN Use*] predniSONE [Deltasone] 20 mg PO DAILY #5 tablet 05/07/20 Unknown Rx Albuterol Sulfate [Proventil Hfa] 2 puff IH Q4HR PRN #1 hfa.aer.ad 05/18/20 Unknown Rx predniSONE [Deltasone] 50 mg PO QDAY #5 tab 05/18/20 Unknown Rx Active Meds: Active Medications Nitroglycerin (Nitroglycerin 0.4 Mg Tab Subl) 0.4 mg SL .Q5MIN PRN PRN Reason: Chest Pain Exam - Constitutional Vitals: Temp Pulse Resp BP Pulse Ox 98.9 F 89 15 121/76 94 08/09/20 16:51 08/09/20 21:30 08/09/20 21:30 08/09/20 21:30 08/09/20 22:19 General appearance: Present: mild distress, well-nourished - EENT Eyes: Present: PERRL ENT: hearing intact, clear oral mucosa - Neck Neck: Present: supple, normal ROM - Respiratory Respiratory effort: normal Respiratory: bilateral: rales, rhonchi - Cardiovascular Heart rate: 78 Heart Sounds: Present: S1 & S2. Absent: rub, click - Extremities Extremities: pulses symmetrical, No edema Peripheral Pulses: within normal limits - Abdominal General gastrointestinal: Present: soft, non-tender, non-distended, normal bowel sounds Female genitourinary: Present: normal - Rectal Rectal Exam: deferred - Integumentary Integumentary: Present: clear, warm, dry - Musculoskeletal Musculoskeletal: gait normal, strength equal bilaterally - Psychiatric Psychiatric: appropriate mood/affect, intact judgment & insight - Neurologic Neurologic: CNII-XII intact, moves all extremities - Allied Health Allied health notes reviewed: nursing, case management HEART Score - HEART Score EKG: Non-specific Age: 45-65 Risk factors: > 3 risk factors or hx of atherosclerotic disease Troponin: Troponin T < 0.010 ng/mL (0.00-0.029) 08/09/20 17: Troponin: < normal limit - Critical Actions Critical Actions: 4-6 pts:12-16.6% risk of adverse cardiac event. Should be admitted Results - Labs CBC & Chem 7: 08/09/20 17:22 08/09/20 17:22 Labs: Laboratory Last Values WBC 6.7 K/mm3 (4.5-11.0) 08/09/20 17: RBC 3.96 M/mm3 (3.65-5.03) 08/09/20 17: Hgb 11.9 gm/dl (10.1-14.3) 08/09/20 17: Hct 34.8 % (30.3-42.9) 08/09/20 17: MCV 88 fl (79-97) 08/09/20 17: MCH 30 pg (28-32) 08/09/20 17: MCHC 34 % (30-34) 08/09/20 17: RDW 14.0 % (13.2-15.2) 08/09/20 17:22 Plt Count 266 K/mm3 (140-440) 08/09/20 17:22 Add Manual Diff Complete 08/09/20 17:22 Total Counted 100 08/09/20 17:22 Seg Neutrophils % Tallow Refiner 08/09/20 17:22 Band Neutrophils % 2.0 % 08/09/20 17: Lymphocytes % (Manual) 4.0 % (13.4-35.0) L 08/09/20 17: Monocytes % (Manual) 1.0 % (0.0-7.3) 08/09/20 17: Nucleated RBC % Not Reportable 08/09/20 17: Seg Neutrophils # Man 6.2 K/mm3 (1.8-7.7) 08/09/20 17: Band Neutrophils # 0.1 K/mm3 08/09/20 17:22 Lymphocytes # (Manual) 0.3 K/mm3 (1.2-5.4) L 08/09/20 17:22 Abs React Lymphs (Man) 0.0 K/mm3 08/09/20 17:22 Monocytes # (Manual) 0.1 K/mm3 (0.0-0.8) 08/09/20 17:22 Eosinophils # (Manual) 0.0 K/mm3 (0.0-0.4) 08/09/20 17:22 Basophils # (Manual) 0.0 K/mm3 (0.0-0.1) 08/09/20 17:22 Metamyelocytes # 0.0 K/mm3 08/09/20 17:22 Myelocytes # 0.0 K/mm3 08/09/20 17:22 Promyelocytes # 0.0 K/mm3 08/09/20 17:22 Blast Cells # 0.0 K/mm3 08/09/20 17:22 WBC Morphology Not Reportable 08/09/20 17:22 Hypersegmented Neuts Not Reportable 08/09/20 17:22 Hyposegmented Neuts Not Reportable 08/09/20 17:22 Hypogranular Neuts Not Reportable 08/09/20 17:22 Smudge Cells Not Reportable 08/09/20 17:22 Toxic Granulation Not Reportable 08/09/20 17:22 Toxic Vacuolation Not Reportable 08/09/20 17:22 Dohle Bodies Not Reportable 08/09/20 17:22 Pelger-Huet Anomaly Not Reportable 08/09/20 17:22 Giuseppe Rods Not Reportable 08/09/20 17:22 Platelet Estimate Consistent w auto 08/09/20 17:22 Clumped Platelets Not Reportable 08/09/20 17:22 Plt Clumps, EDTA Not Reportable 08/09/20 17:22 Large Platelets Not Reportable 08/09/20 17:22 Giant Platelets Not Reportable 08/09/20 17:22 Platelet Satelliting Not Reportable 08/09/20 17:22 Plt Morphology Comment Not Reportable 08/09/20 17:22 RBC Morphology Not Reportable 08/09/20 17:22 Dimorphic RBCs Not Reportable 08/09/20 17:22 Polychromasia Not Reportable 08/09/20 17:22 Hypochromasia Not Reportable 08/09/20 17:22 Poikilocytosis Not Reportable 08/09/20 17:22 Anisocytosis Not Reportable 08/09/20 17:22 Microcytosis Not Reportable 08/09/20 17:22 Macrocytosis Not Reportable 08/09/20 17:22 Spherocytes Not Reportable 08/09/20 17:22 Pappenheimer Bodies Not Reportable 08/09/20 17:22 Sickle Cells Not Reportable 08/09/20 17:22 Target Cells Not Reportable 08/09/20 17:22 Tear Drop Cells Not Reportable 08/09/20 17:22 Ovalocytes Rare 08/09/20 17:22 Helmet Cells Not Reportable 08/09/20 17:22 [place] Bodies Not Reportable 08/09/20 17:22 Ribera Rings Not Reportable 08/09/20 17:22 [place] Cells Few 08/09/20 17:22 Bite Cells Not Reportable 08/09/20 17:22 Crenated Cell Not Reportable 08/09/20 17:22 Elliptocytes Not Reportable 08/09/20 17:22 Acanthocytes (Spur) Rare 08/09/20 17:22 Rouleaux Not Reportable 08/09/20 17:22 Hemoglobin C Crystals Not Reportable 08/09/20 17:22 Schistocytes Not Reportable 08/09/20 17:22 Malaria parasites Not Reportable 08/09/20 17:22 Alfonso Bodies Not Reportable 08/09/20 17:22 Hem Pathologist Commnt No 08/09/20 17:22 PT 16.8 Sec. (12.2-14.9) H 08/09/20 17:22 INR 1.38 (0.87-1.13) H 08/09/20 17:22 APTT 33.6 Sec. (24.2-36.6) 08/09/20 17:22 D-Dimer 243.07 ng/mlDDU (0-234) H 08/09/20 17:22 D-Dimer 243.07 ng/mlDDU (0-234) H 08/09/20 17:22 ABG pH 7.404 pH Units (7.350-7.450) 08/09/20 18:09 ABG pCO2 41.0 mm Hg 08/09/20 18:09 ABG pO2 258.0 mm Hg (80.0-90.0) H 08/09/20 18:09 ABG HCO3 25.1 mmol/L (20.0-26.0) 08/09/20 18:09 ABG O2 Saturation 99.4 % (95.0-99.0) H 08/09/20 18:09 ABG O2 Content 17.8 (0.0-44) 08/09/20 18:09 ABG Base Excess 0.3 mmol/L (-2.0-3.0) 08/09/20 18:09 ABG Hemoglobin 12.5 gm/dl (12.0-16.0) 08/09/20 18:09 ABG Carboxyhemoglobin 1.0 % (0.0-5.0) 08/09/20 18:09 ABG Methemoglobin 0.6 % (0.0-1.5) 08/09/20 18:09 Oxyhemoglobin 97.9 % (95.0-99.0) 08/09/20 18:09 FiO2 60 % 08/09/20 18:09 Sodium 138 mmol/L (137-145) 08/09/20 17:22 Potassium 4.7 mmol/L (3.6-5.0) 08/09/20 17:22 Chloride 102.6 mmol/L (98-107) 08/09/20 17:22 Carbon Dioxide 26 mmol/L (22-30) 08/09/20 17:22 Anion Gap 14 mmol/L 08/09/20 17:22 BUN 12 mg/dL (7-17) 08/09/20 17:22 Creatinine 1.0 mg/dL (0.6-1.2) 08/09/20 17:22 Estimated GFR > 60 ml/min 08/09/20 17:22 BUN/Creatinine Ratio 12 % 08/09/20 17:22 Glucose 228 mg/dL (65-100) H 08/09/20 17:22 Glucose 233 mg/dL (65-100) H 08/09/20 17:22 POC Glucose 174 mg/dL (70-105) H 08/09/20 23:22 Lactic Acid 1.90 mmol/L (0.7-2.0) 08/09/20 17:22 Calcium 8.9 mg/dL (8.4-10.2) 08/09/20 17:22 Magnesium 2.70 mg/dL (1.7-2.3) H 08/09/20 17:22 Ferritin 119.9 ng/mL (10.0-200.0) 08/09/20 17:22 Total Bilirubin 0.20 mg/dL (0.1-1.2) 08/09/20 17:22 AST 15 units/L (5-40) 08/09/20 17:22 ALT 15 units/L (7-56) 08/09/20 17:22 Alkaline Phosphatase 81 units/L (35-129) 08/09/20 17:22 Lactate Dehydrogenase 248 units/L (91-180) H 08/09/20 17:22 Lactate Dehydrogenase 269 units/L (91-180) H 08/09/20 17:22 Total Creatine Kinase 271 units/L (30-135) H 08/09/20 17:22 Troponin T < 0.010 ng/mL (0.00-0.029) 08/09/20 17:22 C-Reactive Protein 2.00 mg/dL (0.00-1.30) H 08/09/20 17:22 C-Reactive Protein 2.10 mg/dL (0.00-1.30) H 08/09/20 17:22 NT-Pro-B Natriuret Pep 266.4 pg/mL (0-900) 08/09/20 17:22 Total Protein 6.5 g/dL (6.3-8.2) 08/09/20 17:22 Albumin 4.0 g/dL (3.9-5) 08/09/20 17:22 Albumin/Globulin Ratio 1.6 % 08/09/20 17:22 Microbiology: Microbiology 08/09/20 17:22 Peripheral/Venous Blood Culture - Preliminary Culture in Progress 08/09/20 17:22 Peripheral/Venous Blood Culture - Preliminary Culture in Progress - Imaging and Cardiology Chest x-ray: report reviewed (No acute findings) Assessment and Plan Advance Directives: Yes (Full code) VTE prophylaxis?: Chemical Plan of care discussed with patient/family: Yes - Patient Problems (1) Acute respiratory failure with hypoxia Current Visit: Yes Status: Acute Plan to address problem: Patient was tachypneic and hypoxic initially CPAP BiPAP and intubation if necessary Continue Solu-Medrol and IV Levaquin and DuoNebs (2) COPD with exacerbation Current Visit: Yes Status: Acute Plan to address problem: Continue duo nebs [id number] and as needed and IV Solu-Medrol and IV Le vaquin (3) Person under investigation for COVID-19 Current Visit: Yes Status: Acute Plan to address problem: Unlikely but coronavirus PCR in the morning (4) Hypertension Current Visit: Yes Status: Chronic Qualifiers: Hypertension type: essential hypertension Qualified Code(s): I10 - Essential (primary) hypertension Plan to address problem: Continue antihypertensives and adjust medications (5) Peripheral neuropathy Current Visit: Yes Status: Chronic Qualifiers: Peripheral neuropathy type: polyneuropathy, unspecified Qualified Code(s): G62.9 - Polyneuropathy, unspecified Plan to address problem: Continue gabapentin (6) CHF (congestive heart failure) Current Visit: Yes Status: Chronic Qualifiers: Heart failure type: combined systolic and diastolic Plan to address problem: On Lasix (7) DVT prophylaxis Current Visit: Yes Status: Acute Plan to address problem: On heparin and GI prophylaxis
[2020-08-10] MEDS ORDERED: ALBUTEROL 8.5 GM MDI INHALATION IH PRN (00:06)
[2020-08-10] MEDS ORDERED: ONDANSETRON 4 MG/2 ML INJ IV PRN ×2 (00:09→00:45)
[2020-08-10] MEDS ORDERED: HYDROmorphone 1 MG/1 ML INJ IV PRN (00:09)
[2020-08-10] MEDS ORDERED: ACETAMINOPHEN 325 MG TAB PO PRN ×2 (00:09→00:45)
[2020-08-10] MEDS ORDERED: IPRATROPIUM/ALBUTEROL SULFATE 3 ML AMPUL.NEB IH PRN ×2 (00:10→00:41)
[2020-08-10] MEDS ORDERED: ALBUTEROL 2.5 MG/3 ML NEBU IH PRN ×2 (00:18→00:30)
[2020-08-10] MEDS ORDERED: methylPREDNISolone Sod Succinate 125 MG/2 ML INJ IV SCH (01:00)
[2020-08-10] MEDS: GABAPENTIN 300 MG CAP PO SCH ×4 (01:08→21:36)
[2020-08-10] MEDS: MONTELUKAST 10 MG TAB PO SCH ×2 (01:08→21:37)
[2020-08-10] MEDS: methylPREDNISolone Sod Succinate 125 MG/2 ML INJ IV SCH ×3 (02:31→17:36)
[2020-08-10] MEDS: oxyCODONE /ACETAMINOPHEN 5-325MG TAB PO PRN (03:00)
[2020-08-10] MEDS: FUROSEMIDE 20 MG TAB PO SCH (07:29)
[2020-08-10] MEDS ORDERED: IPRATROPIUM/ALBUTEROL SULFATE 3 ML AMPUL.NEB IH SCH (08:00)
--- NOTE | 2020-08-10 08:16 | Progress Note ---
Assessment and Plan - Patient Problems (1) Acute respiratory failure with hypoxia Current Visit: Yes Status: Acute Plan to address problem: Acute respiratory failure most likely secondary to acute asthma with secondary bronchitis infection. Admit continue antibiotics Levaquin IV for now. Can quickly change to p.o. and anticipated discharge in a.m. Continue supportive care with oxygen CPAP as needed, Solu-Medrol and nebulizers. Will most likely require steroid taper Suggest making sure to taper secondary to diabetes. (2) Asthma exacerbation Current Visit: Yes Status: Acute Plan to address problem: Again supportive care with steroid IV, nebulizers, will start patient on long acting beta agonist and steroid. Oxygen wean as tolerated Treat underlying etiology of bronchitis with Levaquin. (3) DVT prophylaxis Current Visit: Yes Status: Acute (4) Person under investigation for COVID-19 Current Visit: Yes Status: Acute Plan to address problem: Rule out COVID-19 pneumonia. 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 Physical exam has no evidence of acute heart failure. Chest x-ray unremarkable. (6) Hypertension Current Visit: Yes Status: Chronic Qualifiers: Hypertension type: essential hypertension Qualified Code(s): I10 - Essential (primary) hypertension Plan to address problem: Optimal control with lisinopril 20 mg 1 tab p.o. daily (7) Diabetes 1.5, managed as type 2 Current Visit: Yes Status: Acute Plan to address problem: Patient currently on Metformin. Will hold Metformin placed on sliding scale insulin Accu-Cheks before every meal and nightly. Fairly well controlled hemoglobin A1c has been obtained Subjective Date of service: 08/10/20 Principal diagnosis: Acute hypoxic respiratory failure Interval history: 54-year-old male that presents with a past history of COPD requiring intubation in the past CPAP at home, hypertension presents with an acute episode of shortness of breath dips on exertion and chest tightness consistent with admissions on the past. At present also being ruled out for Covid as a person of interest. Patient today patient is able to talk in full sentences. Still has some wheezing and productive cough. Initial exam appears to be asthma exacerbation secondary to acute bronchitis. Anticipate discharge in the next 1 to 2 days given exam today. Objective - Constitutional Vitals: Vital Signs - 12hr 08/09/20 08/09/20 08/09/20 20:16 20:30 20:46 Temperature Pulse Rate 78 77 79 Respiratory 17 17 16 Rate Blood Pressure 112/74 110/71 112/74 O2 Sat by Pulse 89 94 99 Oximetry 08/09/20 08/09/20 08/09/20 21:00 21:16 21:30 Temperature Pulse Rate 74 76 89 Respiratory 12 14 15 Rate Blood Pressure 118/77 110/71 121/76 O2 Sat by Pulse 86 97 97 Oximetry 08/09/20 08/09/20 08/10/20 22:19 23:09 03:00 Temperature 97.8 F Pulse Rate 82 Respiratory 20 22 Rate Blood Pressure 133/90 O2 Sat by Pulse 94 100 Oximetry 08/10/20 08/10/20 03:54 04:30 Temperature 97.9 F Pulse Rate 96 H 72 Respiratory 22 19 Rate Blood Pressure 112/67 O2 Sat by Pulse 97 98 Oximetry General appearance: Present: no acute distress, well-nourished - EENT Eyes: PERRL, EOM intact ENT: hearing intact, clear oral mucosa Ears: bilateral: normal - Neck Neck: supple, normal ROM - Respiratory Respiratory effort: normal Respiratory: bilateral: CTA, rhonchi (Bilaterally), wheezing - Breasts Breasts: normal - Cardiovascular Rhythm: regular Heart Sounds: Present: S1 & S2. Absent: gallop, rub Extremities: pulses intact, No edema, normal color, Full ROM - Gastrointestinal General gastrointestinal: Present: soft, non-tender, non-distended, normal bowel sounds - Genitourinary Female genitourinary: normal - Integumentary Integumentary: clear, warm, dry - Musculoskeletal Musculoskeletal: 1, strength equal bilaterally - Neurologic Neurologic: moves all extremities - Psychiatric Psychiatric: memory intact, appropriate mood/affect, intact judgment & insight - Labs CBC & Chem 7: 08/09/20 17:22 08/09/20 17:22 Labs: Abnormal lab results 08/09/20 08/09/20 08/09/20 Range/Units 17:22 17:22 17:22 Lymphocytes % (Manual) 4.0 L (13.4-35.0) % Lymphocytes # (Manual) 0.3 L (1.2-5.4) K/mm3 PT 16.8 H (12.2-14.9) Sec. INR 1.38 H (0.87-1.13) D-Dimer 243.07 H (0-234) ng/mlDDU ABG pO2 (80.0-90.0) mm Hg ABG O2 Saturation (95.0-99.0) % Glucose 228 H (65-100) mg/dL POC Glucose (70-105) mg/dL Hemoglobin A1c (4-6) % Magnesium 2.70 H (1.7-2.3) mg/dL Lactate Dehydrogenase 269 H (91-180) units/L Total Creatine Kinase 271 H (30-135) units/L C-Reactive Protein 2.00 H (0.00-1.30) mg/dL 08/09/20 08/09/20 08/09/20 Range/Units 17:22 17:22 18:09 Lymphocytes % (Manual) (13.4-35.0) % Lymphocytes # (Manual) (1.2-5.4) K/mm3 PT (12.2-14.9) Sec. INR (0.87-1.13) D-Dimer 243.07 H (0-234) ng/mlDDU ABG pO2 258.0 H (80.0-90.0) mm Hg ABG O2 Saturation 99.4 H (95.0-99.0) % Glucose 233 H (65-100) mg/dL POC Glucose (70-105) mg/dL Hemoglobin A1c (4-6) % Magnesium (1.7-2.3) mg/dL Lactate Dehydrogenase 248 H (91-180) units/L Total Creatine Kinase (30-135) units/L C-Reactive Protein 2.10 H (0.00-1.30) mg/dL 08/09/20 08/10/20 Range/Units 23:22 00:10 Lymphocytes % (Manual) (13.4-35.0) % Lymphocytes # (Manual) (1.2-5.4) K/mm3 PT (12.2-14.9) Sec. INR (0.87-1.13) D-Dimer (0-234) ng/mlDDU ABG pO2 (80.0-90.0) mm Hg ABG O2 Saturation (95.0-99.0) % Glucose (65-100) mg/dL POC Glucose 174 H (70-105) mg/dL Hemoglobin A1c 6.1 H (4-6) % Magnesium (1.7-2.3) mg/dL Lactate Dehydrogenase (91-180) units/L Total Creatine Kinase (30-135) units/L C-Reactive Protein (0.00-1.30) mg/dL HEART Score - HEART Score EKG: Non-specific Age: 45-65 Risk factors: > 3 risk factors or hx of atherosclerotic disease Troponin: Troponin T < 0.010 ng/mL (0.00-0.029) 08/09/20 17:22 Troponin: < normal limit - Critical Actions Critical Actions: 4-6 pts:12-16.6% risk of adverse cardiac event. Should be admitted
[2020-08-10] MEDS: IPRATROPIUM/ALBUTEROL SULFATE 3 ML AMPUL.NEB IH SCH ×4 (09:21→21:14)
[2020-08-10] MEDS ORDERED: FAMOTIDINE 10 MG TAB PO SCH (10:00)
[2020-08-10] MEDS ORDERED: FAMOTIDINE 20 MG TAB PO SCH (10:00)
[2020-08-10] MEDS: metFORMIN 500 MG TAB PO SCH (10:30)
[2020-08-10] MEDS: ASPIRIN 81 MG TAB CHEW PO SCH (10:30)
[2020-08-10] MEDS: PANTOPRAZOLE 40 MG TAB PO SCH (10:31)
[2020-08-10] MEDS: LISINOPRIL 20 MG TAB PO SCH (10:31)
[2020-08-10] MEDS: FLUTICASONE PROPIONATE NASAL SPRAY 16 GM NS SCH (10:31)
--- NOTE | 2020-08-10 10:43 | Electrocardiograph Report ---
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
[2020-08-10] MEDS: LORazepam 0.5 MG TAB PO PRN (21:37)
[2020-08-11] MEDS: methylPREDNISolone Sod Succinate 125 MG/2 ML INJ IV SCH ×3 (01:44→17:17)
[2020-08-11] MEDS: GABAPENTIN 300 MG CAP PO SCH ×3 (05:46→21:16)
[2020-08-11] MEDS: FUROSEMIDE 20 MG TAB PO SCH (05:49)
[2020-08-11] MEDS: IPRATROPIUM/ALBUTEROL SULFATE 3 ML AMPUL.NEB IH SCH ×4 (08:37→21:38)
[2020-08-11] MEDS: metFORMIN 500 MG TAB PO SCH (08:42)
[2020-08-11 09:34] LABS: Hematocrit 34.6 % (30.3-42.9); Hemoglobin 11.6 gm/dl (10.1-14.3); Mean Corpuscular HGB Conc 34 % (30-34); Mean Corpuscular Volume 89 fl (79-97); Platelet Count 271 K/mm3 (140-440); Red Cell Distribution Width 14.8 % (13.2-15.2)
--- NOTE | 2020-08-11 09:34 | Progress Note ---
Assessment and Plan Assessment and plan: Acute respiratory failure with hypoxia Acute respiratory failure most likely secondary to acute asthma with secondary bronchitis infection. Admit continue antibiotics Levaquin IV for now. Can quickly change to p.o. and anticipated discharge in a.m. Continue supportive care with oxygen CPAP as needed, Solu-Medrol and nebulizers. Will most likely require steroid taper Suggest making sure to taper secondary to diabetes. Asthma exacerbation Again supportive care with steroid IV, nebulizers, long acting beta agonist and steroid. Oxygen wean as tolerated Treat underlying etiology of bronchitis with Levaquin. 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 Physical exam has no evidence of acute heart failure. Chest x-ray unremarkable. Hypertension Optimal control with lisinopril 20 mg 1 tab p.o. 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 Will hold Metformin placed on sliding scale insulin Accu-Cheks before every meal and nightly. Fairly well controlled hemoglobin A1c has been obtained History Interval history: No new issues overnight Hospitalist Physical - Constitutional Vitals: Temp Pulse Resp BP Pulse Ox 98.0 F 78 18 129/79 98 08/11/20 06:16 08/11/20 08:00 08/11/20 08:00 08/11/20 06:16 08/11/20 08:39 General appearance: Present: no acute distress, well-nourished - EENT Eyes: Present: PERRL, EOM intact ENT: hearing intact, clear oral mucosa, dentition normal - Neck Neck: Present: supple, normal ROM - Respiratory Respiratory effort: normal Respiratory: bilateral: CTA - Cardiovascular Rhythm: regular Heart Sounds: Present: S1 & S2. Absent: gallop, rub - Extremities Extremities: no ischemia, No edema, Full ROM - Abdominal General gastrointestinal: soft, non-tender, non-distended, normal bowel sounds - Integumentary Integumentary: Present: clear, warm, dry - Neurologic Neurologic: CNII-XII intact, moves all extremities HEART Score - HEART Score EKG: Non-specific Age: 45-65 Risk factors: > 3 risk factors or hx of atherosclerotic disease Troponin: Troponin T < 0.010 ng/mL (0.00-0.029) 08/09/20 17:22 Troponin: < normal limit - Critical Actions Critical Actions: 4-6 pts:12-16.6% risk of adverse cardiac event. Should be admitted Results - Labs CBC & Chem 7: 08/09/20 17:22 08/09/20 17:22 Labs: Laboratory Last Values WBC 6.7 K/mm3 (4.5-11.0) 08/09/20 17: RBC 3.96 M/mm3 (3.65-5.03) 08/09/20 17: Hgb 11.9 gm/dl (10.1-14.3) 08/09/20 17: Hct 34.8 % (30.3-42.9) 08/09/20 17: MCV 88 fl (79-97) 08/09/20 17: MCH 30 pg (28-32) 08/09/20 17: MCHC 34 % (30-34) 08/09/20 17: RDW 14.0 % (13.2-15.2) 08/09/20 17: Plt Count 266 K/mm3 (140-440) 08/09/20 17:22 Add Manual Diff Complete 08/09/20 17:22 Total Counted 100 08/09/20 17: Seg Neutrophils % Pediatrics Teacher 08/09/20 17: Band Neutrophils % 2.0 % 08/09/20 17: Lymphocytes % (Manual) 4.0 % (13.4-35.0) L 08/09/20 17: Monocytes % (Manual) 1.0 % (0.0-7.3) 08/09/20 17: Nucleated RBC % Not Reportable 08/09/20 17: Seg Neutrophils # Man 6.2 K/mm3 (1.8-7.7) 08/09/20 17: Band Neutrophils # 0.1 K/mm3 08/09/20 17: Lymphocytes # (Manual) 0.3 K/mm3 (1.2-5.4) L 08/09/20 17:22 Abs React Lymphs (Man) 0.0 K/mm3 08/09/20 17:22 Monocytes # (Manual) 0.1 K/mm3 (0.0-0.8) 08/09/20 17: Eosinophils # (Manual) 0.0 K/mm3 (0.0-0.4) 08/09/20 17:22 Basophils # (Manual) 0.0 K/mm3 (0.0-0.1) 08/09/20 17:22 Metamyelocytes # 0.0 K/mm3 08/09/20 17:22 Myelocytes # 0.0 K/mm3 08/09/20 17:22 Promyelocytes # 0.0 K/mm3 08/09/20 17:22 Blast Cells # 0.0 K/mm3 08/09/20 17:22 WBC Morphology Not Reportable 08/09/20 17:22 Hypersegmented Neuts Not Reportable 08/09/20 17:22 Hyposegmented Neuts Not Reportable 08/09/20 17:22 Hypogranular Neuts Not Reportable 08/09/20 17:22 Smudge Cells Not Reportable 08/09/20 17:22 Toxic Granulation Not Reportable 08/09/20 17:22 Toxic Vacuolation Not Reportable 08/09/20 17:22 Dohle Bodies Not Reportable 08/09/20 17:22 Pelger-Huet Anomaly Not Reportable 08/09/20 17:22 Giuseppe Rods Not Reportable 08/09/20 17:22 Platelet Estimate Consistent w auto 08/09/20 17:22 Clumped Platelets Not Reportable 08/09/20 17:22 Plt Clumps, EDTA Not Reportable 08/09/20 17:22 Large Platelets Not Reportable 08/09/20 17:22 Giant Platelets Not Reportable 08/09/20 17:22 Platelet Satelliting Not Reportable 08/09/20 17:22 Plt Morphology Comment Not Reportable 08/09/20 17:22 RBC Morphology Not Reportable 08/09/20 17:22 Dimorphic RBCs Not Reportable 08/09/20 17:22 Polychromasia Not Reportable 08/09/20 17:22 Hypochromasia Not Reportable 08/09/20 17:22 Poikilocytosis Not Reportable 08/09/20 17:22 Anisocytosis Not Reportable 08/09/20 17:22 Microcytosis Not Reportable 08/09/20 17:22 Macrocytosis Not Reportable 08/09/20 17:22 Spherocytes Not Reportable 08/09/20 17:22 Pappenheimer Bodies Not Reportable 08/09/20 17:22 Sickle Cells Not Reportable 08/09/20 17:22 Target Cells Not Reportable 08/09/20 17:22 Tear Drop Cells Not Reportable 08/09/20 17:22 Ovalocytes Rare 08/09/20 17:22 Helmet Cells Not Reportable 08/09/20 17:22 Phillips-Baxter Bodies Not Reportable 08/09/20 17:22 [place] Rings Not Reportable 08/09/20 17:22 Arvin Cells Few 08/09/20 17:22 Bite Cells Not Reportable 08/09/20 17:22 Crenated Cell Not Reportable 08/09/20 17:22 Elliptocytes Not Reportable 08/09/20 17:22 Acanthocytes (Spur) Rare 08/09/20 17:22 Rouleaux Not Reportable 08/09/20 17:22 Hemoglobin C Crystals Not Reportable 08/09/20 17:22 Schistocytes Not Reportable 08/09/20 17:22 Malaria parasites Not Reportable 08/09/20 17:22 Alfonso Bodies Not Reportable 08/09/20 17:22 Hem Pathologist Commnt No 08/09/20 17:22 PT 16.8 Sec. (12.2-14.9) H 08/09/20 17:22 INR 1.38 (0.87-1.13) H 08/09/20 17:22 APTT 33.6 Sec. (24.2-36.6) 08/09/20 17:22 D-Dimer 243.07 ng/mlDDU (0-234) H 08/09/20 17:22 D-Dimer 243.07 ng/mlDDU (0-234) H 08/09/20 17:22 ABG pH 7.404 pH Units (7.350-7.450) 08/09/20 18:09 ABG pCO2 41.0 mm Hg 08/09/20 18:09 ABG pO2 258.0 mm Hg (80.0-90.0) H 08/09/20 18:09 ABG HCO3 25.1 mmol/L (20.0-26.0) 08/09/20 18:09 ABG O2 Saturation 99.4 % (95.0-99.0) H 08/09/20 18:09 ABG O2 Content 17.8 (0.0-44) 08/09/20 18:09 ABG Base Excess 0.3 mmol/L (-2.0-3.0) 08/09/20 18:09 ABG Hemoglobin 12.5 gm/dl (12.0-16.0) 08/09/20 18:09 ABG Carboxyhemoglobin 1.0 % (0.0-5.0) 08/09/20 18:09 ABG Methemoglobin 0.6 % (0.0-1.5) 08/09/20 18:09 Oxyhemoglobin 97.9 % (95.0-99.0) 08/09/20 18:09 FiO2 60 % 08/09/20 18:09 Sodium 138 mmol/L (137-145) 08/09/20 17:22 Potassium 4.7 mmol/L (3.6-5.0) 08/09/20 17:22 Chloride 102.6 mmol/L (98-107) 08/09/20 17:22 Carbon Dioxide 26 mmol/L (22-30) 08/09/20 17:22 Anion Gap 14 mmol/L 08/09/20 17:22 BUN 12 mg/dL (7-17) 08/09/20 17:22 Creatinine 1.0 mg/dL (0.6-1.2) 08/09/20 17:22 Estimated GFR > 60 ml/min 08/09/20 17:22 BUN/Creatinine Ratio 12 % 08/09/20 17:22 Glucose 228 mg/dL (65-100) H 08/09/20 17:22 Glucose 233 mg/dL (65-100) H 08/09/20 17:22 POC Glucose 184 mg/dL (70-105) H 08/10/20 17:09 Hemoglobin A1c 6.1 % (4-6) H 08/10/20 00:10 Lactic Acid 1.90 mmol/L (0.7-2.0) 08/09/20 17:22 Calcium 8.9 mg/dL (8.4-10.2) 08/09/20 17:22 Magnesium 2.70 mg/dL (1.7-2.3) H 08/09/20 17:22 Ferritin 119.9 ng/mL (10.0-200.0) 08/09/20 17:22 Total Bilirubin 0.20 mg/dL (0.1-1.2) 08/09/20 17:22 AST 15 units/L (5-40) 08/09/20 17:22 ALT 15 units/L (7-56) 08/09/20 17:22 Alkaline Phosphatase 81 units/L (35-129) 08/09/20 17:22 Lactate Dehydrogenase 248 units/L (91-180) H 08/09/20 17:22 Lactate Dehydrogenase 269 units/L (91-180) H 08/09/20 17:22 Total Creatine Kinase 271 units/L (30-135) H 08/09/20 17:22 Troponin T < 0.010 ng/mL (0.00-0.029) 08/09/20 17:22 C-Reactive Protein 2.00 mg/dL (0.00-1.30) H 08/09/20 17:22 C-Reactive Protein 2.10 mg/dL (0.00-1.30) H 08/09/20 17:22 NT-Pro-B Natriuret Pep 266.4 pg/mL (0-900) 08/09/20 17:22 Total Protein 6.5 g/dL (6.3-8.2) 08/09/20 17:22 Albumin 4.0 g/dL (3.9-5) 08/09/20 17:22 Albumin/Globulin Ratio 1.6 % 08/09/20 17:22 Procalcitonin < 0.05 ng/mL (<0.15) 08/09/20 17:22 Coronavirus (PCR) Positive (Negative) A 08/09/20 10:05 Microbiology: Microbiology 08/09/20 17:22 Peripheral/Venous Blood Culture - Preliminary NO GROWTH AFTER 24 HOURS 08/09/20 17:22 Peripheral/Venous Blood Culture - Preliminary NO GROWTH AFTER 24 HOURS Calderon/IV: Voiding Method Toilet Active Medications - Current Medications Current Medications: Generic Name Dose Route Start Last Admin Trade Name Freq PRN Reason Stop Dose Admin Acetaminophen 650 mg 08/10/20 00:09 Acetaminophen 325 Mg Tab PO Q4H PRN Pain MILD(1-3)/Fever >100.5/ANTONIO Albuterol 2.5 mg 08/10/20 00:30 Albuterol 2.5 Mg/3 Ml Nebu IH Q3HRT PRN Wheezing/ SOB Albuterol/Ipratropium 1 ampul 08/10/20 08:00 08/11/20 08:37 Ipratropium/Albuterol Sulfate 3 Ml Ampul.Neb IH 1 ampul QIDRT REANNA Administration Aspirin 81 mg 08/10/20 10:00 08/10/20 10:30 Aspirin 81 Mg Tab Chew PO 81 mg QDAY REANNA Administration Fluticasone Propionate 50 mcg 08/10/20 10:00 08/10/20 10:31 Fluticasone Propionate Nasal [place] 16 Gm NS 50 mcg QDAY REANNA Administration Furosemide 20 mg 08/10/20 06:00 08/11/20 05:49 Furosemide 20 Mg Tab PO 20 mg DAILY@0600 REANNA Administration Gabapentin 300 mg 08/10/20 00:45 08/11/20 05:46 Gabapentin 300 Mg Cap PO 300 mg Q8HR REANNA Administration Hydromorphone HCl 0.5 mg 08/10/20 00:09 Hydromorphone 1 Mg/1 Ml Inj IV Q3H PRN Pain , Severe (7-10) Levofloxacin/Dextrose 750 mg in 150 mls @ 100 mls/hr 08/10/20 10:00 08/10/20 10:30 Levaquin 750mg/150ml IV 100 mls/hr Q24HR REANNA Administration Protocol Lisinopril 20 mg 08/10/20 10:00 08/10/20 10:31 Lisinopril 20 Mg Tab PO 20 mg QDAY REANNA Administration Lorazepam 0.5 mg 08/10/20 10:41 08/10/20 21:37 Lorazepam 0.5 Mg Tab PO 0.5 mg Q8H PRN Administration Agitation Metformin HCl 500 mg 08/10/20 08:00 08/11/20 08:42 Metformin 500 Mg Tab PO 500 mg QDDIAB REANNA Administration Methylprednisolone Sodium Succinate 125 mg 08/10/20 01:00 08/11/20 01:44 Methylprednisolone Sod Succinate 125 Mg/2 Ml Inj IV 125 mg Q8H REANNA Administration Montelukast Sodium 10 mg 08/10/20 00:45 08/10/20 21:37 Montelukast 10 Mg Tab PO 10 mg QHS REANNA Administration Nitroglycerin 0.4 mg 08/09/20 17:11 Nitroglycerin 0.4 Mg Tab Subl SL .Q5MIN PRN Chest Pain Ondansetron HCl 4 mg 08/10/20 00:09 Ondansetron 4 Mg/2 Ml Inj IV Q8H PRN Nausea And Vomiting Oxycodone/Acetaminophen 1 tab 08/10/20 00:09 08/10/20 03:00 Oxycodone /Acetaminophen 5-325mg Tab PO 1 tab Q6H PRN Administration Pain, Moderate (4-6) Pantoprazole Sodium 40 mg 08/10/20 10:00 08/10/20 10:31 Pantoprazole 40 Mg Tab PO 40 mg QDAY REANNA Administration Sodium Chloride 10 ml 08/10/20 10:00 08/10/20 21:37 Sodium Chloride 0.9% 10 Ml Flush Syringe IV 10 ml BID REANNA Administration Sodium Chloride 10 ml 08/10/20 00:09 08/10/20 01:08 Sodium Chloride 0.9% 10 Ml Flush Syringe IV 10 ml PRN PRN Administration LINE FLUSH
[2020-08-11 10:07] LABS: Alanine Aminotransferase 13 units/L (7-56); Albumin 3.9 g/dL (3.9-5); BUN/Creatinine Ratio 25; Blood Urea Nitrogen 28 mg/dL (7-17); Calcium 9.1 mg/dL (8.4-10.2); Hemolysis Index 6
[2020-08-11 10:32] LABS: Total Cells Counted 100
[2020-08-11 10:33] LABS: Burr Cells 1+; Ovalocytes 1+; Platelet Estimate Consistent w Auto; Poikilocytosis 2+; Toxic Granulation 1+
[2020-08-11] MEDS: LISINOPRIL 20 MG TAB PO SCH (10:43)
[2020-08-11] MEDS: ASPIRIN 81 MG TAB CHEW PO SCH (10:43)
[2020-08-11] MEDS: PANTOPRAZOLE 40 MG TAB PO SCH (10:43)
[2020-08-11] MEDS: FLUTICASONE PROPIONATE NASAL SPRAY 16 GM NS SCH (11:05)
[2020-08-11] MEDS ORDERED: MAGNESIUM HYDROXIDE (MOM) ORAL LIQD UDC PO NR (12:00)
--- NOTE | 2020-08-11 13:27 | Consultation ---
History of Present Illness - Reason for Consult Consult date: 08/11/20 COVID Requesting physician: HUGO SZYMANSKI - History of Present Illness The patient is a 54-year-old female with hypertension, diabetes, CHF was admitted to the hospital with cough and shortness of breath going on for 2 days. She was found to have hypoxia and tested positive for COVID-19. Infectious diseases was consulted for additional evaluation. She has been afebrile. Currently is requiring 2 L oxygen by nasal cannula. Labs on admission showed normal WBC, D-dimer 243, ferritin 119, procalcitonin 0.05, CRP 2.1. Review of Systems: reviewed in the chart, unable to obtain, minimize risk of transmission Medications and Allergies Allergies Allergy/AdvReac Type Severity Reaction Status Date / Time amoxicillin Allergy Anaphylaxis Verified 03/29/19 00:50 Penicillins Allergy Rash Verified 07/25/17 08:05 seafood Allergy Severe Anaphylaxis Uncoded 03/16/17 01:08 peanuts Allergy Anaphylaxis Uncoded 09/20/19 12:06 Home Medications Medication Instructions Recorded Confirmed Last Taken Type Aspirin [Aspirin BABY CHEW TAB] 81 mg PO QDAY #30 tab.chew 01/06/20 02/05/20 Unknown Rx Furosemide [Lasix TAB] 20 mg PO DAILY@0600 #30 tablet 01/06/20 02/05/20 Unknown Rx Gabapentin 300 mg PO Q8HR #90 capsule 01/06/20 02/05/20 Unknown Rx Montelukast [Singulair] 10 mg PO QHS #30 tablet 01/06/20 02/05/20 Unknown Rx lisinopriL [Zestril TAB] 20 mg PO QDAY #30 tab 01/06/20 02/05/20 Unknown Rx metFORMIN [Glucophage] 500 mg PO QDAY 02/05/20 02/05/20 Unknown History Pantoprazole [Protonix] 40 mg PO QDAY #30 tablet 03/07/20 Unknown Rx Albuterol Mdi (or & Nicu Only) 2 puff IH QID PRN #1 inhalation 03/08/20 Unknown Rx [ProAir HFA Inhaler] Fluticasone [Flonase] 1 spray NS QDAY #1 bottle 05/07/20 Unknown Rx Ipratropium/Albuterol Sulfate 1 ampul IH Q6HR #1 box 05/07/20 Unknown Rx [DUONEB *Not for PRN Use*] predniSONE [Deltasone] 20 mg PO DAILY #5 tablet 05/07/20 Unknown Rx Albuterol Sulfate [Proventil Hfa] 2 puff IH Q4HR PRN #1 hfa.aer.ad 05/18/20 Unknown Rx predniSONE [Deltasone] 50 mg PO QDAY #5 tab 05/18/20 Unknown Rx Active Meds: Active Medications Acetaminophen (Acetaminophen 325 Mg Tab) 650 mg PO Q4H PRN PRN Reason: Pain MILD(1-3)/Fever >100.5/ANTONIO Albuterol (Albuterol 2.5 Mg/3 Ml Nebu) 2.5 mg IH Q3HRT PRN PRN Reason: Wheezing/ SOB Albuterol/Ipratropium (Ipratropium/Albuterol Sulfate 3 Ml Ampul.Neb) 1 ampul IH QIDRT [facility] Last Admin: 08/11/20 08:37 Dose: 1 ampul Documented by: Aspirin (Aspirin 81 Mg Tab Chew) 81 mg PO QDAY [facility] Last Admin: 08/11/20 10:43 Dose: 81 mg Documented by: Fluticasone Propionate (Fluticasone Propionate Nasal [place] 16 Gm) 50 mcg NS QDAY [facility] Last Admin: 08/11/20 11:05 Dose: 50 mcg Documented by: Furosemide (Furosemide 20 Mg Tab) 20 mg PO DAILY@0600 [facility] Last Admin: 08/11/20 05:49 Dose: 20 mg Documented by: Gabapentin (Gabapentin 300 Mg Cap) 300 mg PO Q8HR [facility] Last Admin: 08/11/20 05:46 Dose: 300 mg Documented by: Hydromorphone HCl (Hydromorphone 1 Mg/1 Ml Inj) 0.5 mg IV Q3H PRN PRN Reason: Pain , Severe (7-10) Levofloxacin/Dextrose (Levaquin 750mg/150ml) 750 mg in 150 mls @ 100 mls/hr IV Q24HR [facility]; Protocol Last Admin: 08/11/20 10:42 Dose: 100 mls/hr Documented by: Lisinopril (Lisinopril 20 Mg Tab) 20 mg PO QDAY [facility] Last Admin: 08/11/20 10:43 Dose: 20 mg Documented by: Lorazepam (Lorazepam 0.5 Mg Tab) 0.5 mg PO Q8H PRN PRN Reason: Agitation Last Admin: 08/10/20 21:37 Dose: 0.5 mg Documented by: Magnesium Hydroxide (Magnesium Hydroxide (Mom) Oral Liqd Udc) 30 ml PO ONCE@1200 NR Stop: 08/11/20 16:00 Last Admin: 08/11/20 12:56 Dose: 30 ml Documented by: Metformin HCl (Metformin 500 Mg Tab) 500 mg PO QDDIAB [facility] Last Admin: 08/11/20 08:42 Dose: 500 mg Documented by: Methylprednisolone Sodium Succinate (Methylprednisolone Sod Succinate 125 Mg/2 Ml Inj) 125 mg IV Q8H [facility] Last Admin: 08/11/20 10:42 Dose: 125 mg Documented by: Montelukast Sodium (Montelukast 10 Mg Tab) 10 mg PO QHS [facility] Last Admin: 08/10/20 21:37 Dose: 10 mg Documented by: Nitroglycerin (Nitroglycerin 0.4 Mg Tab Subl) 0.4 mg SL .Q5MIN PRN PRN Reason: Chest Pain Ondansetron HCl (Ondansetron 4 Mg/2 Ml Inj) 4 mg IV Q8H PRN PRN Reason: Nausea And Vomiting Oxycodone/Acetaminophen (Oxycodone /Acetaminophen 5-325mg Tab) 1 tab PO Q6H PRN PRN Reason: Pain, Moderate (4-6) Last Admin: 08/10/20 03:00 Dose: 1 tab Documented by: Pantoprazole Sodium (Pantoprazole 40 Mg Tab) 40 mg PO QDAY [facility] Last Admin: 08/11/20 10:43 Dose: 40 mg Documented by: Sodium Chloride (Sodium Chloride 0.9% 10 Ml Flush Syringe) 10 ml IV BID [facility] Last Admin: 08/11/20 10:43 Dose: 10 ml Documented by: Sodium Chloride (Sodium Chloride 0.9% 10 Ml Flush Syringe) 10 ml IV PRN PRN PRN Reason: LINE FLUSH Last Admin: 08/10/20 01:08 Dose: 10 ml Documented by: Physical Examination - Physical Exam Narrative exam: Physical Exam (reviewed in chart to minimize risk of transmission) Constitutional: deferred Head, Ears, Nose: deferred Eyes: deferred Neck: deferred Oral: deferred Cardiovascular: deferred Respiratory: deferred GI: deferred Musculoskeletal: deferred Skin: deferred Hem/Lymphatic: deferred Psych: deferred Neurological: deferred - Constitutional Vitals: Vital Signs Temp Pulse Resp BP Pulse Ox 98.0 F 78 18 129/79 97 08/11/20 06:16 08/11/20 08:00 08/11/20 08:00 08/11/20 06:16 08/11/20 09:34 Temperature -Last 24 Hours Temperature 98.0 F Temperature 98.3 F Temperature 98.1 F Results - Labs CBC & Chem 7: 08/11/20 09:24 08/11/20 09:24 Labs: Abnormal lab results 08/09/20 08/10/20 08/10/20 Range/Units 10:05 12:11 17:09 WBC (4.5-11.0) K/mm3 Seg Neuts % (Manual) (40.0-70.0) % Lymphocytes % (Manual) (13.4-35.0) % Seg Neutrophils # Man (1.8-7.7) K/mm3 Lymphocytes # (Manual) (1.2-5.4) K/mm3 Sodium (137-145) mmol/L BUN (7-17) mg/dL Glucose (65-100) mg/dL POC Glucose 141 H 184 H (70-105) mg/dL Coronavirus (PCR) Positive A (Negative) 08/11/20 08/11/20 Range/Units 09:24 09:24 WBC 14.4 H (4.5-11.0) K/mm3 Seg Neuts % (Manual) 94.0 H (40.0-70.0) % Lymphocytes % (Manual) 6.0 L (13.4-35.0) % Seg Neutrophils # Man 13.5 H (1.8-7.7) K/mm3 Lymphocytes # (Manual) 0.9 L (1.2-5.4) K/mm3 Sodium 134 L (137-145) mmol/L BUN 28 H (7-17) mg/dL Glucose 162 H (65-100) mg/dL POC Glucose (70-105) mg/dL Coronavirus (PCR) (Negative) - Imaging and Cardiology Chest x-ray: report reviewed, image reviewed (no pneumonia ) Assessment and Plan Cultures: SARS CoV2 PCR: Positive 08/09/2020 blood culture: No growth A/P: #COVID-19: Chest x-ray did not reveal any obvious pneumonia but patient was hypoxic. #Acute hypoxic respiratory failure: On nasal cannula #Acute asthma exacerbation: On steroids Recs: -Already on steroids, continue -Abx not needed given low procalcitonin -Added remdesivir due to hypoxia -prophylactic anticoagulation based on d-dimer per hospital protocol -trend ferritin, LDH, d-dimer, CRP every 2-3 days for risk stratification and to assess disease progression Jacuqie Bocanegra MD, FACP [facility] O: [phone] F: [phone]
[2020-08-11 14:54] LABS: Alanine Aminotransferase 14 units/L (7-56); Albumin 4.3 g/dL (3.9-5); BUN/Creatinine Ratio 23; Blood Urea Nitrogen 28 mg/dL (7-17); Calcium 9.5 mg/dL (8.4-10.2); Hemolysis Index 7
[2020-08-11] MEDS ORDERED: REMDESIVIR 200 MG in SODIUM CHLORIDE 0.9% 250ML 250 ML IV ONE (16:00)
[2020-08-11] MEDS ORDERED: REMDESIVIR 100 MG VIAL IV ONE (16:00)
[2020-08-11] MEDS: SODIUM CHLORIDE 0.9% 50 ML IVPB IV SCH (17:18)
[2020-08-11] MEDS: guaiFENesin 100 MG/5 ML ORAL LIQD PO PRN (18:36)
[2020-08-11] MEDS: MONTELUKAST 10 MG TAB PO SCH (21:15)
[2020-08-12] MEDS: methylPREDNISolone Sod Succinate 125 MG/2 ML INJ IV SCH (00:34)
[2020-08-12] MEDS: FUROSEMIDE 20 MG TAB PO SCH (06:25)
[2020-08-12] MEDS: GABAPENTIN 300 MG CAP PO SCH ×3 (06:25→21:33)
[2020-08-12] MEDS: IPRATROPIUM/ALBUTEROL SULFATE 3 ML AMPUL.NEB IH SCH ×4 (07:50→20:23)
[2020-08-12 08:11] LABS: Basophils % (Auto) 0.1 % (0.0-1.8); Hematocrit 32.6 % (30.3-42.9); Mean Corpuscular HGB Conc 34 % (30-34); Mean Corpuscular Volume 88 fl (79-97); Monocytes # (Auto) 0.5 K/mm3 (0.0-0.8); Monocytes % (Auto) 3.9 % (0.0-7.3); Platelet Count 267 K/mm3 (140-440); Red Blood Count 3.72 M/mm3 (3.65-5.03); Red Cell Distribution Width 14.7 % (13.2-15.2)
[2020-08-12 08:34] LABS: Alanine Aminotransferase 12 units/L (7-56); Albumin 3.7 g/dL (3.9-5); BUN/Creatinine Ratio 26; Blood Urea Nitrogen 26 mg/dL (7-17); Calcium 8.7 mg/dL (8.4-10.2); Hemolysis Index 8
--- NOTE | 2020-08-12 09:49 | Progress Note ---
Assessment and Plan Assessment and plan: Acute respiratory failure with hypoxia Etiology secondary to COVID-19 pneumonia. Continue oxygen for supportive care Asthma exacerbation Again supportive care with steroid IV, nebulizers, long acting beta agonist and steroid. Oxygen wean as tolerated DVT prophylaxis COVID-19 pneumonia Patient tested positive on 08/09 CHF (congestive heart failure) Well compensated with current beta-ai LILI inhibitor afterload administration dean and diuretics. Physical exam has no evidence of acute heart failure. Chest x-ray unremarkable. Hypertension Optimal control with lisinopril 20 mg 1 tab p.o. 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 Will hold Metformin placed on sliding scale insulin Accu-Cheks before every meal and nightly. Fairly well controlled hemoglobin A1c has been obtained 08/12/2020. Exercise pulse oximetry testing today. Remdesivir initiated by infectious disease. Antibiotic discontinued given low procalcitonin. Wean steroids today and follow-up oxygenation History Interval history: No new issues overnight Hospitalist Physical - Constitutional Vitals: Temp Pulse Resp BP Pulse Ox 97.8 F 61 16 111/75 98 08/12/20 05:13 08/12/20 05:13 08/12/20 05:13 08/12/20 05:13 08/12/20 05:13 General appearance: Present: no acute distress, well-nourished - EENT Eyes: Present: PERRL, EOM intact ENT: hearing intact, clear oral mucosa, dentition normal - Neck Neck: Present: supple, normal ROM - Respiratory Respiratory effort: normal Respiratory: bilateral: CTA - Cardiovascular Rhythm: regular Heart Sounds: Present: S1 & S2. Absent: gallop, rub - Extremities Extremities: no ischemia, No edema, Full ROM - Abdominal General gastrointestinal: soft, non-tender, non-distended, normal bowel sounds - Integumentary Integumentary: Present: clear, warm, dry - Neurologic Neurologic: CNII-XII intact, moves all extremities HEART Score - HEART Score EKG: Non-specific Age: 45-65 Risk factors: > 3 risk factors or hx of atherosclerotic disease Troponin: Troponin T < 0.010 ng/mL (0.00-0.029) 08/09/20 17:22 Troponin: < normal limit - Critical Actions Critical Actions: 4-6 pts:12-16.6% risk of adverse cardiac event. Should be admitted Results - Labs CBC & Chem 7: 08/12/20 07:31 08/12/20 07:31 Labs: Laboratory Last Values WBC 12.1 K/mm3 (4.5-11.0) H 08/12/20 07:31 RBC 3.72 M/mm3 (3.65-5.03) 08/12/20 07:31 Hgb 11.0 gm/dl (10.1-14.3) 08/12/20 07: Hct 32.6 % (30.3-42.9) 08/12/20 07: MCV 88 fl (79-97) 08/12/20 07: MCH 30 pg (28-32) 08/12/20 07: MCHC 34 % (30-34) 08/12/20 07: RDW 14.7 % (13.2-15.2) 08/12/20 07:31 Plt Count 267 K/mm3 (140-440) 08/12/20 07:31 Lymph % (Auto) 8.0 % (13.4-35.0) L 08/12/20 07:31 [place] % (Auto) 3.9 % (0.0-7.3) 08/12/20 07: Eos % (Auto) 0.0 % (0.0-4.3) 08/12/20 07: Baso % (Auto) 0.1 % (0.0-1.8) 08/12/20 07: Lymph # (Auto) 1.0 K/mm3 (1.2-5.4) L 08/12/20 07:31 [place] # (Auto) 0.5 K/mm3 (0.0-0.8) 08/12/20 07: Eos # (Auto) 0.0 K/mm3 (0.0-0.4) 08/12/20 07: Baso # (Auto) 0.0 K/mm3 (0.0-0.1) 08/12/20 07:31 Add Manual Diff Complete 08/11/20 09:24 Total Counted 100 08/11/20 09:24 Seg Neutrophils % 88.0 % (40.0-70.0) H 08/12/20 07:31 Seg Neuts % (Manual) 94.0 % (40.0-70.0) H 08/11/20 09:24 Band Neutrophils % 2.0 % 08/09/20 17:22 Lymphocytes % (Manual) 6.0 % (13.4-35.0) L 08/11/20 09:24 Monocytes % (Manual) 1.0 % (0.0-7.3) 08/09/20 17:22 Nucleated RBC % Not Reportable 08/11/20 09:24 Seg Neutrophils # 10.7 K/mm3 (1.8-7.7) H 08/12/20 07:31 Seg Neutrophils # Man 13.5 K/mm3 (1.8-7.7) H 08/11/20 09:24 Band Neutrophils # 0.0 K/mm3 08/11/20 09:24 Lymphocytes # (Manual) 0.9 K/mm3 (1.2-5.4) L 08/11/20 09:24 Abs React Lymphs (Man) 0.0 K/mm3 08/11/20 09:24 Monocytes # (Manual) 0.0 K/mm3 (0.0-0.8) 08/11/20 09:24 Eosinophils # (Manual) 0.0 K/mm3 (0.0-0.4) 08/11/20 09:24 Basophils # (Manual) 0.0 K/mm3 (0.0-0.1) 08/11/20 09:24 Metamyelocytes # 0.0 K/mm3 08/11/20 09:24 Myelocytes # 0.0 K/mm3 08/11/20 09:24 Promyelocytes # 0.0 K/mm3 08/11/20 09:24 Blast Cells # 0.0 K/mm3 08/11/20 09:24 WBC Morphology Not Reportable 08/11/20 09:24 Hypersegmented Neuts Not Reportable 08/11/20 09:24 Hyposegmented Neuts Not Reportable 08/11/20 09:24 Hypogranular Neuts Not Reportable 08/11/20 09:24 Smudge Cells Not Reportable 08/11/20 09:24 Toxic Granulation 1+ 08/11/20 09:24 Toxic Vacuolation Not Reportable 08/11/20 09:24 Dohle Bodies Not Reportable 08/11/20 09:24 Pelger-Huet Anomaly Not Reportable 08/11/20 09:24 Giuseppe Rods Not Reportable 08/11/20 09:24 Platelet Estimate Consistent w auto 08/11/20 09:24 Clumped Platelets Not Reportable 08/11/20 09:24 Plt Clumps, EDTA Not Reportable 08/11/20 09:24 Large Platelets Not Reportable 08/11/20 09:24 Giant Platelets Not Reportable 08/11/20 09:24 Platelet Satelliting Not Reportable 08/11/20 09:24 Plt Morphology Comment Not Reportable 08/11/20 09:24 RBC Morphology Not Reportable 08/11/20 09:24 Dimorphic RBCs Not Reportable 08/11/20 09:24 Polychromasia Not Reportable 08/11/20 09:24 Hypochromasia Not Reportable 08/11/20 09:24 Poikilocytosis 2+ 08/11/20 09:24 Anisocytosis Not Reportable 08/11/20 09:24 Microcytosis Not Reportable 08/11/20 09:24 Macrocytosis Not Reportable 08/11/20 09:24 Spherocytes Not Reportable 08/11/20 09:24 Pappenheimer Bodies Not Reportable 08/11/20 09:24 Sickle Cells Not Reportable 08/11/20 09:24 Target Cells Not Reportable 08/11/20 09:24 Tear Drop Cells Not Reportable 08/11/20 09:24 Ovalocytes 1+ 08/11/20 09:24 Helmet Cells Not Reportable 08/11/20 09:24 [place] Bodies Not Reportable 08/11/20 09:24 [place] Rings Not Reportable 08/11/20 09:24 Willet Cells 1+ 08/11/20 09:24 Bite Cells Not Reportable 08/11/20 09:24 Crenated Cell Not Reportable 08/11/20 09:24 Elliptocytes Not Reportable 08/11/20 09:24 Acanthocytes (Spur) Not Reportable 08/11/20 09:24 Rouleaux Not Reportable 08/11/20 09:24 Hemoglobin C Crystals Not Reportable 08/11/20 09:24 Schistocytes Not Reportable 08/11/20 09:24 Malaria parasites Not Reportable 08/11/20 09:24 Alfonso Bodies Not Reportable 08/11/20 09:24 Hem Pathologist Commnt No 08/11/20 09:24 PT 16.8 Sec. (12.2-14.9) H 08/09/20 17:22 INR 1.38 (0.87-1.13) H 08/09/20 17:22 APTT 33.6 Sec. (24.2-36.6) 08/09/20 17:22 D-Dimer 243.07 ng/mlDDU (0-234) H 08/09/20 17:22 D-Dimer 243.07 ng/mlDDU (0-234) H 08/09/20 17:22 ABG pH 7.404 pH Units (7.350-7.450) 08/09/20 18:09 ABG pCO2 41.0 mm Hg 08/09/20 18:09 ABG pO2 258.0 mm Hg (80.0-90.0) H 08/09/20 18:09 ABG HCO3 25.1 mmol/L (20.0-26.0) 08/09/20 18:09 ABG O2 Saturation 99.4 % (95.0-99.0) H 08/09/20 18:09 ABG O2 Content 17.8 (0.0-44) 08/09/20 18:09 ABG Base Excess 0.3 mmol/L (-2.0-3.0) 08/09/20 18:09 ABG Hemoglobin 12.5 gm/dl (12.0-16.0) 08/09/20 18:09 ABG Carboxyhemoglobin 1.0 % (0.0-5.0) 08/09/20 18:09 ABG Methemoglobin 0.6 % (0.0-1.5) 08/09/20 18:09 Oxyhemoglobin 97.9 % (95.0-99.0) 08/09/20 18:09 FiO2 60 % 08/09/20 18:09 Sodium 140 mmol/L (137-145) 08/12/20 07:31 Potassium 4.6 mmol/L (3.6-5.0) 08/12/20 07:31 Chloride 103.8 mmol/L (98-107) 08/12/20 07:31 Carbon Dioxide 26 mmol/L (22-30) 08/12/20 07:31 Anion Gap 15 mmol/L 08/12/20 07:31 BUN 26 mg/dL (7-17) H 08/12/20 07:31 Creatinine 1.0 mg/dL (0.6-1.2) 08/12/20 07:31 Estimated GFR > 60 ml/min 08/12/20 07:31 BUN/Creatinine Ratio 26 % 08/12/20 07:31 Glucose 142 mg/dL (65-100) H 08/12/20 07:31 POC Glucose 281 mg/dL (70-105) H 08/11/20 21:28 Hemoglobin A1c 6.1 % (4-6) H 08/10/20 00:10 Lactic Acid 1.90 mmol/L (0.7-2.0) 08/09/20 17:22 Calcium 8.7 mg/dL (8.4-10.2) 08/12/20 07:31 Magnesium 2.70 mg/dL (1.7-2.3) H 08/09/20 17:22 Ferritin 119.9 ng/mL (10.0-200.0) 08/09/20 17:22 Total Bilirubin < 0.20 mg/dL (0.1-1.2) 08/12/20 07:31 AST 9 units/L (5-40) 08/12/20 07:31 ALT 12 units/L (7-56) 08/12/20 07:31 Alkaline Phosphatase 65 units/L (35-129) 08/12/20 07:31 Lactate Dehydrogenase 248 units/L (91-180) H 08/09/20 17:22 Lactate Dehydrogenase 269 units/L (91-180) H 08/09/20 17:22 Total Creatine Kinase 271 units/L (30-135) H 08/09/20 17:22 Troponin T < 0.010 ng/mL (0.00-0.029) 08/09/20 17:22 C-Reactive Protein 2.00 mg/dL (0.00-1.30) H 08/09/20 17:22 C-Reactive Protein 2.10 mg/dL (0.00-1.30) H 08/09/20 17:22 NT-Pro-B Natriuret Pep 266.4 pg/mL (0-900) 08/09/20 17:22 Total Protein 6.5 g/dL (6.3-8.2) 08/12/20 07:31 Albumin 3.7 g/dL (3.9-5) L 08/12/20 07:31 Albumin/Globulin Ratio 1.3 % 08/12/20 07:31 Procalcitonin < 0.05 ng/mL (<0.15) 08/09/20 17:22 Coronavirus (PCR) Positive (Negative) A 08/09/20 10:05 Microbiology: Microbiology 08/09/20 17:22 Peripheral/Venous Blood Culture - Preliminary NO GROWTH AFTER 48 HOURS 08/09/20 17:22 Peripheral/Venous Blood Culture - Preliminary NO GROWTH AFTER 48 HOURS Calderon/IV: Voiding Method Toilet Active Medications - Current Medications Current Medications: Generic Name Dose Route Start Last Admin Trade Name Freq PRN Reason Stop Dose Admin Acetaminophen 650 mg 08/10/20 00:09 Acetaminophen 325 Mg Tab PO Q4H PRN Pain MILD(1-3)/Fever >100.5/ANTONIO Albuterol 2.5 mg 08/10/20 00:30 Albuterol 2.5 Mg/3 Ml Nebu IH Q3HRT PRN Wheezing/ SOB Albuterol/Ipratropium 1 ampul 08/10/20 08:00 08/12/20 07:50 Ipratropium/Albuterol Sulfate 3 Ml Ampul.Neb IH 1 ampul QIDRT REANNA Administration Aspirin 81 mg 08/10/20 10:00 08/11/20 10:43 Aspirin 81 Mg Tab Chew PO 81 mg QDAY REANNA Administration Fluticasone Propionate 50 mcg 08/10/20 10:00 08/11/20 11:05 Fluticasone Propionate Nasal Fence 16 Gm NS 50 mcg QDAY REANNA Administration Furosemide 20 mg 08/10/20 06:00 08/12/20 06:25 Furosemide 20 Mg Tab PO 20 mg DAILY@0600 REANNA Administration Gabapentin 300 mg 08/10/20 00:45 08/12/20 06:25 Gabapentin 300 Mg Cap PO 300 mg Q8HR REANNA Administration Guaifenesin 200 mg 08/11/20 17:44 08/11/20 18:36 Guaifenesin 100 Mg/5 Ml Oral Liqd PO 200 mg Q6H PRN Administration Cough Hydromorphone HCl 0.5 mg 08/10/20 00:09 Hydromorphone 1 Mg/1 Ml Inj IV Q3H PRN Pain , Severe (7-10) REMDESIVIR 100 mg/ Sodium 250 mls @ 500 mls/hr 08/12/20 21:00 Chloride IV 08/15/20 21:29 Q24HR@2100 REANNA Lisinopril 20 mg 08/10/20 10:00 08/11/20 10:43 Lisinopril 20 Mg Tab PO 20 mg QDAY REANNA Administration Lorazepam 0.5 mg 08/10/20 10:41 08/10/20 21:37 Lorazepam 0.5 Mg Tab PO 0.5 mg Q8H PRN Administration Agitation Metformin HCl 500 mg 08/10/20 08:00 08/11/20 08:42 Metformin 500 Mg Tab PO 500 mg QDDIAB REANNA Administration Methylprednisolone Sodium Succinate 125 mg 08/10/20 01:00 08/12/20 00:34 Methylprednisolone Sod Succinate 125 Mg/2 Ml Inj IV 125 mg Q8H REANNA Administration Montelukast Sodium 10 mg 08/10/20 00:45 08/11/20 21:15 Montelukast 10 Mg Tab PO 10 mg QHS REANNA Administration Nitroglycerin 0.4 mg 08/09/20 17:11 Nitroglycerin 0.4 Mg Tab Subl SL .Q5MIN PRN Chest Pain Ondansetron HCl 4 mg 08/10/20 00:09 Ondansetron 4 Mg/2 Ml Inj IV Q8H PRN Nausea And Vomiting Oxycodone/Acetaminophen 1 tab 08/10/20 00:09 08/10/20 03:00 Oxycodone /Acetaminophen 5-325mg Tab PO 1 tab Q6H PRN Administration Pain, Moderate (4-6) Pantoprazole Sodium 40 mg 08/10/20 10:00 08/11/20 10:43 Pantoprazole 40 Mg Tab PO 40 mg QDAY REANNA Administration Sodium Chloride 10 ml 08/10/20 10:00 08/11/20 21:16 Sodium Chloride 0.9% 10 Ml Flush Syringe IV 10 ml BID REANNA Administration Sodium Chloride 10 ml 08/10/20 00:09 08/10/20 01:08 Sodium Chloride 0.9% 10 Ml Flush Syringe IV 10 ml PRN PRN Administration LINE FLUSH Sodium Chloride 50 ml 08/11/20 16:00 08/11/20 17:18 Sodium Chloride 0.9% 50 Ml Ivpb IV 08/15/20 21:01 50 ml Q24HR@2100 REANNA Administration
[2020-08-12] MEDS ORDERED: methylPREDNISolone Sod Succinate 125 MG/2 ML INJ IV SCH (10:00)
[2020-08-12] MEDS: methylPREDNISolone Sod Succinate 40 MG/1 ML INJ IV SCH ×2 (10:16→21:33)
[2020-08-12] MEDS: ASPIRIN 81 MG TAB CHEW PO SCH (10:17)
[2020-08-12] MEDS: LISINOPRIL 20 MG TAB PO SCH ×2 (10:17→10:19)
[2020-08-12] MEDS: PANTOPRAZOLE 40 MG TAB PO SCH (10:17)
[2020-08-12] MEDS: metFORMIN 500 MG TAB PO SCH (10:17)
--- NOTE | 2020-08-12 13:38 | Progress Note ---
Assessment and Plan Cultures: SARS CoV2 PCR: Positive 08/09/2020 blood culture: No growth A/P: 54-year-old female with hypertension, diabetes, CHF, severe asthma admitted with: #COVID-19: Chest x-ray did not reveal any obvious pneumonia but patient was hypoxic. Procalcitonin 0.05. Antibiotics discontinued #Acute hypoxic respiratory failure: On nasal cannula #Acute asthma exacerbation: On steroids Recs: -Already on steroids, continue -continue remdesivir D2 -prophylactic anticoagulation based on d-dimer per hospital protocol -trend ferritin, LDH, d-dimer, CRP every 2-3 days for risk stratification and to assess disease progression -continue to wean oxygen Jacquie Bocanegra MD, FACP [facility] ([facility] O: [phone] F: [phone] Subjective Date of service: 08/12/20 Principal diagnosis: Acute hypoxic respiratory failure Interval history: No fever. On 2 L oxygen by nasal cannula. Objective - Exam Narrative Exam: Physical Exam (reviewed in chart to minimize risk of transmission) Constitutional: deferred Head, Ears, Nose: deferred Eyes: deferred Neck: deferred Oral: deferred Cardiovascular: deferred Respiratory: deferred GI: deferred Musculoskeletal: deferred Skin: deferred Hem/Lymphatic: deferred Psych: deferred Neurological: deferred - Constitutional Vitals: Vital Signs Temp Pulse Resp BP Pulse Ox 97.8 F 76 18 111/75 98 08/12/20 05:13 08/12/20 07:55 08/12/20 07:55 08/12/20 05:13 08/12/20 10:00 Temperature -Last 24 Hours Temperature 97.8 F Temperature 98.7 F Temperature 98.7 F - Labs CBC & Chem 7: 08/12/20 07:31 08/12/20 07:31 Labs: Abnormal lab results 08/11/20 08/11/20 08/11/20 Range/Units 12:11 14:24 16:08 WBC (4.5-11.0) K/mm3 Lymph % (Auto) (13.4-35.0) % Lymph # (Auto) (1.2-5.4) K/mm3 Seg Neutrophils % (40.0-70.0) % Seg Neutrophils # (1.8-7.7) K/mm3 BUN 28 H (7-17) mg/dL Glucose 129 H (65-100) mg/dL POC Glucose 155 H 145 H (70-105) mg/dL Albumin (3.9-5) g/dL 08/11/20 08/12/20 08/12/20 Range/Units 21:28 07:31 07:31 WBC 12.1 H (4.5-11.0) K/mm3 Lymph % (Auto) 8.0 L (13.4-35.0) % Lymph # (Auto) 1.0 L (1.2-5.4) K/mm3 Seg Neutrophils % 88.0 H (40.0-70.0) % Seg Neutrophils # 10.7 H (1.8-7.7) K/mm3 BUN 26 H (7-17) mg/dL Glucose 142 H (65-100) mg/dL POC Glucose 281 H (70-105) mg/dL Albumin 3.7 L (3.9-5) g/dL 08/12/20 Range/Units 08:56 WBC (4.5-11.0) K/mm3 Lymph % (Auto) (13.4-35.0) % Lymph # (Auto) (1.2-5.4) K/mm3 Seg Neutrophils % (40.0-70.0) % Seg Neutrophils # (1.8-7.7) K/mm3 BUN (7-17) mg/dL Glucose (65-100) mg/dL POC Glucose 136 H (70-105) mg/dL Albumin (3.9-5) g/dL
[2020-08-12] MEDS: FLUTICASONE PROPIONATE NASAL SPRAY 16 GM NS SCH (17:01)
[2020-08-12] MEDS: guaiFENesin 100 MG/5 ML ORAL LIQD PO PRN (19:37)
[2020-08-12] MEDS: REMDESIVIR 100 MG in SODIUM CHLORIDE 0.9% 250ML 250 ML IV SCH (21:33)
[2020-08-12] MEDS: MONTELUKAST 10 MG TAB PO SCH (21:33)
[2020-08-12] MEDS: SODIUM CHLORIDE 0.9% 50 ML IVPB IV SCH (21:34)
[2020-08-13] MEDS: FUROSEMIDE 20 MG TAB PO SCH (06:02)
[2020-08-13] MEDS: GABAPENTIN 300 MG CAP PO SCH ×3 (06:02→22:01)
[2020-08-13] MEDS: IPRATROPIUM/ALBUTEROL SULFATE 3 ML AMPUL.NEB IH SCH ×4 (08:41→21:51)
[2020-08-13] MEDS: metFORMIN 500 MG TAB PO SCH (09:00)
--- NOTE | 2020-08-13 09:37 | Progress Note ---
Assessment and Plan Assessment and plan: Acute respiratory failure with hypoxia Etiology secondary to COVID-19 pneumonia. Continue oxygen for supportive care Asthma exacerbation Again supportive care with steroid IV, nebulizers, long acting beta agonist and steroid. 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 Physical exam has no evidence of acute heart failure. Chest x-ray unremarkable. Hypertension Optimal control with lisinopril 20 mg 1 tab p.o. 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 Will hold Metformin placed on sliding scale insulin Accu-Cheks before every meal and nightly. Fairly well controlled hemoglobin A1c has been obtained 08/12/2020. Exercise pulse oximetry testing today. Remdesivir initiated by infectious disease. Antibiotic discontinued given low procalcitonin. Wean steroids today and follow-up oxygenation 08/13/2020. Patient with significant hypoxemia requiring BiPAP 16/8 with FiO2 40%. Patient currently on remdesivir and steroids. We will consult pulmonology for further evaluation. ID following. History Interval history: No new issues overnight Hospitalist Physical - Constitutional Vitals: Temp Pulse Resp BP Pulse Ox 98.9 F 85 20 106/66 99 08/13/20 04:52 08/13/20 08:00 08/13/20 08:00 08/13/20 04:52 08/13/20 04:52 General appearance: Present: no acute distress, well-nourished - EENT Eyes: Present: PERRL, EOM intact ENT: hearing intact, clear oral mucosa, dentition normal - Neck Neck: Present: supple, normal ROM - Respiratory Respiratory effort: normal Respiratory: bilateral: CTA - Cardiovascular Rhythm: regular Heart Sounds: Present: S1 & S2. Absent: gallop, rub - Extremities Extremities: no ischemia, No edema, Full ROM - Abdominal General gastrointestinal: soft, non-tender, non-distended, normal bowel sounds - Integumentary Integumentary: Present: clear, warm, dry - Neurologic Neurologic: CNII-XII intact, moves all extremities HEART Score - HEART Score EKG: Non-specific Age: 45-65 Risk factors: > 3 risk factors or hx of atherosclerotic disease Troponin: Troponin T < 0.010 ng/mL (0.00-0.029) 04/25/21 17:22 Troponin: < normal limit - Critical Actions Critical Actions: 4-6 pts:12-16.6% risk of adverse cardiac event. Should be admitted Results - Labs CBC & Chem 7: 08/12/20 07:31 08/12/20 07:31 Labs: Laboratory Last Values WBC 12.1 K/mm3 (4.5-11.0) H 08/12/20 07: RBC 3.72 M/mm3 (3.65-5.03) 08/12/20 07: Hgb 11.0 gm/dl (10.1-14.3) 08/12/20 07: Hct 32.6 % (30.3-42.9) 08/12/20 07: MCV 88 fl (79-97) 08/12/20 07: MCH 30 pg (28-32) 08/12/20 07: MCHC 34 % (30-34) 08/12/20 07: RDW 14.7 % (13.2-15.2) 08/12/20 07:31 Plt Count 267 K/mm3 (140-440) 08/12/20 07:31 Lymph % (Auto) 8.0 % (13.4-35.0) L 08/12/20 07: Wise % (Auto) 3.9 % (0.0-7.3) 08/12/20 07: Eos % (Auto) 0.0 % (0.0-4.3) 08/12/20 07: Baso % (Auto) 0.1 % (0.0-1.8) 08/12/20 07: Lymph # (Auto) 1.0 K/mm3 (1.2-5.4) L 08/12/20 07: Wise # (Auto) 0.5 K/mm3 (0.0-0.8) 08/12/20 07: Eos # (Auto) 0.0 K/mm3 (0.0-0.4) 08/12/20 07: Baso # (Auto) 0.0 K/mm3 (0.0-0.1) 08/12/20 07:31 Add Manual Diff Complete 08/11/20 09:24 Total Counted 100 08/11/20 09:24 Seg Neutrophils % 88.0 % (40.0-70.0) H 08/12/20 07:31 Seg Neuts % (Manual) 94.0 % (40.0-70.0) H 08/11/20 09:24 Band Neutrophils % 2.0 % 08/09/20 17:22 Lymphocytes % (Manual) 6.0 % (13.4-35.0) L 08/11/20 09:24 Monocytes % (Manual) 1.0 % (0.0-7.3) 08/09/20 17:22 Nucleated RBC % Not Reportable 08/11/20 09:24 Seg Neutrophils # 10.7 K/mm3 (1.8-7.7) H 08/12/20 07:31 Seg Neutrophils # Man 13.5 K/mm3 (1.8-7.7) H 08/11/20 09:24 Band Neutrophils # 0.0 K/mm3 08/11/20 09:24 Lymphocytes # (Manual) 0.9 K/mm3 (1.2-5.4) L 08/11/20 09:24 Abs React Lymphs (Man) 0.0 K/mm3 08/11/20 09:24 Monocytes # (Manual) 0.0 K/mm3 (0.0-0.8) 08/11/20 09:24 Eosinophils # (Manual) 0.0 K/mm3 (0.0-0.4) 08/11/20 09:24 Basophils # (Manual) 0.0 K/mm3 (0.0-0.1) 08/11/20 09:24 Metamyelocytes # 0.0 K/mm3 08/11/20 09:24 Myelocytes # 0.0 K/mm3 08/11/20 09:24 Promyelocytes # 0.0 K/mm3 08/11/20 09:24 Blast Cells # 0.0 K/mm3 08/11/20 09:24 WBC Morphology Not Reportable 08/11/20 09:24 Hypersegmented Neuts Not Reportable 08/11/20 09:24 Hyposegmented Neuts Not Reportable 08/11/20 09:24 Hypogranular Neuts Not Reportable 08/11/20 09:24 Smudge Cells Not Reportable 08/11/20 09:24 Toxic Granulation 1+ 08/11/20 09:24 Toxic Vacuolation Not Reportable 08/11/20 09:24 Dohle Bodies Not Reportable 08/11/20 09:24 Pelger-Huet Anomaly Not Reportable 08/11/20 09:24 Giuseppe Rods Not Reportable 08/11/20 09:24 Platelet Estimate Consistent w auto 08/11/20 09:24 Clumped Platelets Not Reportable 08/11/20 09:24 Plt Clumps, EDTA Not Reportable 08/11/20 09:24 Large Platelets Not Reportable 08/11/20 09:24 Giant Platelets Not Reportable 08/11/20 09:24 Platelet Satelliting Not Reportable 08/11/20 09:24 Plt Morphology Comment Not Reportable 08/11/20 09:24 RBC Morphology Not Reportable 08/11/20 09:24 Dimorphic RBCs Not Reportable 08/11/20 09:24 Polychromasia Not Reportable 08/11/20 09:24 Hypochromasia Not Reportable 08/11/20 09:24 Poikilocytosis 2+ 08/11/20 09:24 Anisocytosis Not Reportable 08/11/20 09:24 Microcytosis Not Reportable 08/11/20 09:24 Macrocytosis Not Reportable 08/11/20 09:24 Spherocytes Not Reportable 08/11/20 09:24 Pappenheimer Bodies Not Reportable 08/11/20 09:24 Sickle Cells Not Reportable 08/11/20 09:24 Target Cells Not Reportable 08/11/20 09:24 Tear Drop Cells Not Reportable 08/11/20 09:24 Ovalocytes 1+ 08/11/20 09:24 Helmet Cells Not Reportable 08/11/20 09:24 [place] Bodies Not Reportable 08/11/20 09:24 [place] Rings Not Reportable 08/11/20 09:24 Arvin Cells 1+ 08/11/20 09:24 Bite Cells Not Reportable 08/11/20 09:24 Crenated Cell Not Reportable 08/11/20 09:24 Elliptocytes Not Reportable 08/11/20 09:24 Acanthocytes (Spur) Not Reportable 08/11/20 09:24 Rouleaux Not Reportable 08/11/20 09:24 Hemoglobin C Crystals Not Reportable 08/11/20 09:24 Schistocytes Not Reportable 08/11/20 09:24 Malaria parasites Not Reportable 08/11/20 09:24 Alfonso Bodies Not Reportable 08/11/20 09:24 Hem Pathologist Commnt No 08/11/20 09:24 PT 16.8 Sec. (12.2-14.9) H 08/09/20 17:22 INR 1.38 (0.87-1.13) H 08/09/20 17:22 APTT 33.6 Sec. (24.2-36.6) 08/09/20 17:22 D-Dimer 243.07 ng/mlDDU (0-234) H 08/09/20 17:22 D-Dimer 243.07 ng/mlDDU (0-234) H 08/09/20 17:22 ABG pH 7.404 pH Units (7.350-7.450) 08/09/20 18:09 ABG pCO2 41.0 mm Hg 08/09/20 18:09 ABG pO2 258.0 mm Hg (80.0-90.0) H 08/09/20 18:09 ABG HCO3 25.1 mmol/L (20.0-26.0) 08/09/20 18:09 ABG O2 Saturation 99.4 % (95.0-99.0) H 08/09/20 18:09 ABG O2 Content 17.8 (0.0-44) 08/09/20 18:09 ABG Base Excess 0.3 mmol/L (-2.0-3.0) 08/09/20 18:09 ABG Hemoglobin 12.5 gm/dl (12.0-16.0) 08/09/20 18:09 ABG Carboxyhemoglobin 1.0 % (0.0-5.0) 08/09/20 18:09 ABG Methemoglobin 0.6 % (0.0-1.5) 08/09/20 18:09 Oxyhemoglobin 97.9 % (95.0-99.0) 08/09/20 18:09 FiO2 60 % 08/09/20 18:09 Sodium 140 mmol/L (137-145) 08/12/20 07:31 Potassium 4.6 mmol/L (3.6-5.0) 08/12/20 07:31 Chloride 103.8 mmol/L (98-107) 08/12/20 07:31 Carbon Dioxide 26 mmol/L (22-30) 08/12/20 07:31 Anion Gap 15 mmol/L 08/12/20 07:31 BUN 26 mg/dL (7-17) H 08/12/20 07:31 Creatinine 1.0 mg/dL (0.6-1.2) 08/12/20 07:31 Estimated GFR > 60 ml/min 08/12/20 07:31 BUN/Creatinine Ratio 26 % 08/12/20 07:31 Glucose 142 mg/dL (65-100) H 08/12/20 07:31 POC Glucose 174 mg/dL (70-105) H 08/12/20 20:12 Hemoglobin A1c 6.1 % (4-6) H 08/10/20 00:10 Lactic Acid 1.90 mmol/L (0.7-2.0) 08/09/20 17:22 Calcium 8.7 mg/dL (8.4-10.2) 08/12/20 07:31 Magnesium 2.70 mg/dL (1.7-2.3) H 08/09/20 17:22 Ferritin 119.9 ng/mL (10.0-200.0) 08/09/20 17:22 Total Bilirubin < 0.20 mg/dL (0.1-1.2) 08/12/20 07:31 AST 9 units/L (5-40) 08/12/20 07:31 ALT 12 units/L (7-56) 08/12/20 07:31 Alkaline Phosphatase 65 units/L (35-129) 08/12/20 07:31 Lactate Dehydrogenase 248 units/L (91-180) H 08/09/20 17:22 Lactate Dehydrogenase 269 units/L (91-180) H 08/09/20 17:22 Total Creatine Kinase 271 units/L (30-135) H 08/09/20 17:22 Troponin T < 0.010 ng/mL (0.00-0.029) 08/09/20 17:22 C-Reactive Protein 2.00 mg/dL (0.00-1.30) H 08/09/20 17:22 C-Reactive Protein 2.10 mg/dL (0.00-1.30) H 08/09/20 17:22 NT-Pro-B Natriuret Pep 266.4 pg/mL (0-900) 08/09/20 17:22 Total Protein 6.5 g/dL (6.3-8.2) 08/12/20 07:31 Albumin 3.7 g/dL (3.9-5) L 08/12/20 07:31 Albumin/Globulin Ratio 1.3 % 08/12/20 07:31 Procalcitonin < 0.05 ng/mL (<0.15) 08/09/20 17:22 Coronavirus (PCR) Positive (Negative) A 08/09/20 10:05 Microbiology: Microbiology 08/09/20 17:22 Peripheral/Venous Blood Culture - Preliminary NO GROWTH AFTER 72 HOURS 08/09/20 17:22 Peripheral/Venous Blood Culture - Preliminary NO GROWTH AFTER 72 HOURS Calderon/IV: Voiding Method Toilet Active Medications - Current Medications Current Medications: Generic Name Dose Route Start Last Admin Trade Name Freq PRN Reason Stop Dose Admin Acetaminophen 650 mg 08/10/20 00:09 Acetaminophen 325 Mg Tab PO Q4H PRN Pain MILD(1-3)/Fever >100.5/ANTONIO Albuterol 2.5 mg 08/10/20 00:30 Albuterol 2.5 Mg/3 Ml Nebu IH Q3HRT PRN Wheezing/ SOB Albuterol/Ipratropium 1 ampul 08/10/20 08:00 08/13/20 08:41 Ipratropium/Albuterol Sulfate 3 Ml Ampul.Neb IH 1 ampul QIDRT REANNA Administration Aspirin 81 mg 08/10/20 10:00 08/12/20 10:17 Aspirin 81 Mg Tab Chew PO 81 mg QDAY REANNA Administration Fluticasone Propionate 50 mcg 08/10/20 10:00 08/12/20 17:01 Fluticasone Propionate Nasal [place] 16 Gm NS Not Given QDAY REANNA Furosemide 20 mg 08/10/20 06:00 08/13/20 06:02 Furosemide 20 Mg Tab PO 20 mg DAILY@0600 REANNA Administration Gabapentin 300 mg 08/10/20 00:45 08/13/20 06:02 Gabapentin 300 Mg Cap PO 300 mg Q8HR ERANNA Administration Guaifenesin 200 mg 08/11/20 17:44 08/12/20 19:37 Guaifenesin 100 Mg/5 Ml Oral Liqd PO 200 mg Q6H PRN Administration Cough Hydromorphone HCl 0.5 mg 08/10/20 00:09 Hydromorphone 1 Mg/1 Ml Inj IV Q3H PRN Pain , Severe (7-10) REMDESIVIR 100 mg/ Sodium 250 mls @ 500 mls/hr 08/12/20 21:00 08/12/20 21:33 Chloride IV 08/15/20 21:29 500 mls/hr Q24HR@2100 REANNA Administration Lisinopril 20 mg 08/10/20 10:00 08/12/20 10:19 Lisinopril 20 Mg Tab PO Not Given QDAY REANNA Lorazepam 0.5 mg 08/10/20 10:41 08/10/20 21:37 Lorazepam 0.5 Mg Tab PO 0.5 mg Q8H PRN Administration Agitation Metformin HCl 500 mg 08/10/20 08:00 08/12/20 10:17 Metformin 500 Mg Tab PO 500 mg QDDIAB REANNA Administration Methylprednisolone Sodium Succinate 40 mg 08/12/20 10:00 08/12/20 21:33 Methylprednisolone Sod Succinate 40 Mg/1 Ml Inj IV 40 mg Q12HR REANNA Administration Montelukast Sodium 10 mg 08/10/20 00:45 08/12/20 21:33 Montelukast 10 Mg Tab PO 10 mg QHS REANNA Administration Nitroglycerin 0.4 mg 08/09/20 17:11 Nitroglycerin 0.4 Mg Tab Subl SL .Q5MIN PRN Chest Pain Ondansetron HCl 4 mg 08/10/20 00:09 Ondansetron 4 Mg/2 Ml Inj IV Q8H PRN Nausea And Vomiting Oxycodone/Acetaminophen 1 tab 08/10/20 00:09 08/10/20 03:00 Oxycodone /Acetaminophen 5-325mg Tab PO 1 tab Q6H PRN Administration Pain, Moderate (4-6) Pantoprazole Sodium 40 mg 08/10/20 10:00 08/12/20 10:17 Pantoprazole 40 Mg Tab PO 40 mg QDAY REANNA Administration Sodium Chloride 10 ml 08/10/20 10:00 08/12/20 21:34 Sodium Chloride 0.9% 10 Ml Flush Syringe IV 10 ml BID REANNA Administration Sodium Chloride 10 ml 08/10/20 00:09 08/10/20 01:08 Sodium Chloride 0.9% 10 Ml Flush Syringe IV 10 ml PRN PRN Administration LINE FLUSH Sodium Chloride 50 ml 08/11/20 16:00 08/12/20 21:34 Sodium Chloride 0.9% 50 Ml Ivpb IV 08/15/20 21:01 50 ml Q24HR@2100 REANNA Administration
[2020-08-13 10:44] LABS: Alanine Aminotransferase 12 units/L (7-56); Albumin 3.4 g/dL (3.9-5); BUN/Creatinine Ratio 30; Blood Urea Nitrogen 27 mg/dL (7-17); Calcium 8.5 mg/dL (8.4-10.2); Hemolysis Index 5
[2020-08-13] MEDS: methylPREDNISolone Sod Succinate 40 MG/1 ML INJ IV SCH ×2 (10:52→22:02)
[2020-08-13] MEDS: ASPIRIN 81 MG TAB CHEW PO SCH (10:52)
[2020-08-13] MEDS: PANTOPRAZOLE 40 MG TAB PO SCH (10:52)
[2020-08-13] MEDS: LISINOPRIL 20 MG TAB PO SCH (11:06)
[2020-08-13] MEDS: FLUTICASONE PROPIONATE NASAL SPRAY 16 GM NS SCH (13:06)
--- NOTE | 2020-08-13 14:06 | Progress Note ---
Assessment and Plan Cultures: SARS CoV2 PCR: Positive 08/09/2020 blood culture: No growth A/P: 54-year-old female with hypertension, diabetes, CHF, severe asthma admitted with: #COVID-19: Chest x-ray did not reveal any obvious pneumonia but patient was hypoxic. Procalcitonin 0.05. Antibiotics discontinued #Acute hypoxic respiratory failure: On nasal cannula #Acute asthma exacerbation: On steroids Recs: -Already on steroids, continue, wean per primary team -continue remdesivir D3 -prophylactic anticoagulation based on d-dimer per hospital protocol -trend ferritin, LDH, d-dimer, CRP every 2-3 days for risk stratification and to assess disease progression -continue to wean oxygen, eval for home oxygen prior to discharge Jacquie Bocanegra MD, FACP [facility] ([facility] O: [phone] F: [phone] Subjective Date of service: 08/13/20 Principal diagnosis: Acute hypoxic respiratory failure Interval history: No fever. Stable on 2 L oxygen by nasal cannula. Objective - Exam Narrative Exam: Physical Exam (reviewed in chart to minimize risk of transmission) Constitutional: deferred Head, Ears, Nose: deferred Eyes: deferred Neck: deferred Oral: deferred Cardiovascular: deferred Respiratory: deferred GI: deferred Musculoskeletal: deferred Skin: deferred Hem/Lymphatic: deferred Psych: deferred Neurological: deferred - Constitutional Vitals: Vital Signs Temp Pulse Resp BP Pulse Ox 98.9 F 71 20 118/68 98 08/13/20 04:52 08/13/20 12:28 08/13/20 12:28 08/13/20 11:06 08/13/20 08:41 Temperature -Last 24 Hours Temperature 98.9 F Temperature 97.9 F Temperature 98.3 F - Labs CBC & Chem 7: 08/12/20 07:31 08/13/20 07:56 Labs: Abnormal lab results 08/12/20 08/12/20 08/13/20 Range/Units 18:32 20:12 07:56 BUN 27 H (7-17) mg/dL Glucose 133 H (65-100) mg/dL POC Glucose 158 H 174 H (70-105) mg/dL Total Protein 5.7 L (6.3-8.2) g/dL Albumin 3.4 L (3.9-5) g/dL 08/13/20 08/13/20 Range/Units 08:13 12:21 BUN (7-17) mg/dL Glucose (65-100) mg/dL POC Glucose 134 H 112 H (70-105) mg/dL Total Protein (6.3-8.2) g/dL Albumin (3.9-5) g/dL
--- NOTE | 2020-08-13 18:53 | Consultation ---
History of Present Illness Consult date: 08/13/20 Requesting physician: HUGO SZYMANSKI Reason for consult: dyspnea History of present illness: 54 yo admitted for increased SOB, cough, hypoxia, fevers. Not feeling much better. No hemoptysis. No wheezing currently. Active Medications Acetaminophen (Acetaminophen 325 Mg Tab) 650 mg PO Q4H PRN PRN Reason: Pain MILD(1-3)/Fever >100.5/ANTONIO Albuterol (Albuterol 2.5 Mg/3 Ml Nebu) 2.5 mg IH Q3HRT PRN PRN Reason: Wheezing/ SOB Albuterol/Ipratropium (Ipratropium/Albuterol Sulfate 3 Ml Ampul.Neb) 1 ampul IH QIDRT [facility] Last Admin: 08/13/20 16:06 Dose: 1 ampul Documented by: Aspirin (Aspirin 81 Mg Tab Chew) 81 mg PO QDAY [facility] Last Admin: 08/13/20 10:52 Dose: 81 mg Documented by: Fluticasone Propionate (Fluticasone Propionate Nasal [place] 16 Gm) 50 mcg NS QDAY [facility] Last Admin: 08/13/20 13:06 Dose: 50 mcg Documented by: Furosemide (Furosemide 20 Mg Tab) 20 mg PO DAILY@0600 [facility] Last Admin: 08/13/20 06:02 Dose: 20 mg Documented by: Gabapentin (Gabapentin 300 Mg Cap) 300 mg PO Q8HR [facility] Last Admin: 08/13/20 13:11 Dose: 300 mg Documented by: Guaifenesin (Guaifenesin 100 Mg/5 Ml Oral Liqd) 200 mg PO Q6H PRN PRN Reason: Cough Last Admin: 08/12/20 19:37 Dose: 200 mg Documented by: Hydromorphone HCl (Hydromorphone 1 Mg/1 Ml Inj) 0.5 mg IV Q3H PRN PRN Reason: Pain , Severe (7-10) REMDESIVIR 100 mg/ Sodium (Chloride) 250 mls @ 500 mls/hr IV Q24HR@2100 [facility] Stop: 08/15/20 21:29 Last Admin: 08/12/20 21:33 Dose: 500 mls/hr Documented by: Lisinopril (Lisinopril 20 Mg Tab) 20 mg PO QDAY [facility] Last Admin: 08/13/20 11:06 Dose: 20 mg Documented by: Lorazepam (Lorazepam 0.5 Mg Tab) 0.5 mg PO Q8H PRN PRN Reason: Agitation Last Admin: 08/10/20 21:37 Dose: 0.5 mg Documented by: Metformin HCl (Metformin 500 Mg Tab) 500 mg PO QDDIAB [facility] Last Admin: 08/13/20 09:00 Dose: 500 mg Documented by: Methylprednisolone Sodium Succinate (Methylprednisolone Sod Succinate 40 Mg/1 Ml Inj) 40 mg IV Q12HR [facility] Last Admin: 08/13/20 10:52 Dose: 40 mg Documented by: Montelukast Sodium (Montelukast 10 Mg Tab) 10 mg PO QHS [facility] Last Admin: 08/12/20 21:33 Dose: 10 mg Documented by: Nitroglycerin (Nitroglycerin 0.4 Mg Tab Subl) 0.4 mg SL .Q5MIN PRN PRN Reason: Chest Pain Ondansetron HCl (Ondansetron 4 Mg/2 Ml Inj) 4 mg IV Q8H PRN PRN Reason: Nausea And Vomiting Oxycodone/Acetaminophen (Oxycodone /Acetaminophen 5-325mg Tab) 1 tab PO Q6H PRN PRN Reason: Pain, Moderate (4-6) Last Admin: 08/10/20 03:00 Dose: 1 tab Documented by: Pantoprazole Sodium (Pantoprazole 40 Mg Tab) 40 mg PO QDAY [facility] Last Admin: 08/13/20 10:52 Dose: 40 mg Documented by: Sodium Chloride (Sodium Chloride 0.9% 10 Ml Flush Syringe) 10 ml IV BID [facility] Last Admin: 08/13/20 10:52 Dose: 10 ml Documented by: Sodium Chloride (Sodium Chloride 0.9% 10 Ml Flush Syringe) 10 ml IV PRN PRN PRN Reason: LINE FLUSH Last Admin: 08/10/20 01:08 Dose: 10 ml Documented by: Sodium Chloride (Sodium Chloride 0.9% 50 Ml Ivpb) 50 ml IV Q24HR@2100 [facility] Stop: 08/15/20 21:01 Last Admin: 08/12/20 21:34 Dose: 50 ml Documented by: Past History Past Medical History: other (Asthma, HTN) Social history: full code. denies: smoking, alcohol abuse, prescription drug abuse, IV drug use Family history: no significant family history (no pulm issues reported) Medications and Allergies Allergies Allergy/AdvReac Type Severity Reaction Status Date / Time amoxicillin Allergy Anaphylaxis Verified 03/29/19 00:50 Penicillins Allergy Rash Verified 07/25/17 08:05 seafood Allergy Severe Anaphylaxis Uncoded 03/16/17 01:08 peanuts Allergy Anaphylaxis Uncoded 09/20/19 12:06 Home Medications Medication Instructions Recorded Confirmed Last Taken Type Aspirin [Aspirin BABY CHEW TAB] 81 mg PO QDAY #30 tab.chew 01/06/20 02/05/20 Unknown Rx Furosemide [Lasix TAB] 20 mg PO DAILY@0600 #30 tablet 01/06/20 02/05/20 Unknown Rx Gabapentin 300 mg PO Q8HR #90 capsule 01/06/20 02/05/20 Unknown Rx Montelukast [Singulair] 10 mg PO QHS #30 tablet 01/06/20 02/05/20 Unknown Rx lisinopriL [Zestril TAB] 20 mg PO QDAY #30 tab 01/06/20 02/05/20 Unknown Rx metFORMIN [Glucophage] 500 mg PO QDAY 02/05/20 02/05/20 Unknown History Pantoprazole [Protonix] 40 mg PO QDAY #30 tablet 03/07/20 Unknown Rx Albuterol Mdi (or & Nicu Only) 2 puff IH QID PRN #1 inhalation 03/08/20 Unknown Rx [ProAir HFA Inhaler] Fluticasone [Flonase] 1 spray NS QDAY #1 bottle 05/07/20 Unknown Rx Ipratropium/Albuterol Sulfate 1 ampul IH Q6HR #1 box 05/07/20 Unknown Rx [DUONEB *Not for PRN Use*] predniSONE [Deltasone] 20 mg PO DAILY #5 tablet 05/07/20 Unknown Rx Albuterol Sulfate [Proventil Hfa] 2 puff IH Q4HR PRN #1 hfa.aer.ad 05/18/20 Unknown Rx predniSONE [Deltasone] 50 mg PO QDAY #5 tab 05/18/20 Unknown Rx Active Meds: Active Medications Acetaminophen (Acetaminophen 325 Mg Tab) 650 mg PO Q4H PRN PRN Reason: Pain MILD(1-3)/Fever >100.5/ANTONIO Albuterol (Albuterol 2.5 Mg/3 Ml Nebu) 2.5 mg IH Q3HRT PRN PRN Reason: Wheezing/ SOB Albuterol/Ipratropium (Ipratropium/Albuterol Sulfate 3 Ml Ampul.Neb) 1 ampul IH QIDRT [facility] Last Admin: 08/13/20 16:06 Dose: 1 ampul Documented by: Aspirin (Aspirin 81 Mg Tab Chew) 81 mg PO QDAY [facility] Last Admin: 08/13/20 10:52 Dose: 81 mg Documented by: Fluticasone Propionate (Fluticasone Propionate Nasal [place] 16 Gm) 50 mcg NS QDAY [facility] Last Admin: 08/13/20 13:06 Dose: 50 mcg Documented by: Furosemide (Furosemide 20 Mg Tab) 20 mg PO DAILY@0600 [facility] Last Admin: 08/13/20 06:02 Dose: 20 mg Documented by: Gabapentin (Gabapentin 300 Mg Cap) 300 mg PO Q8HR [facility] Last Admin: 08/13/20 13:11 Dose: 300 mg Documented by: Guaifenesin (Guaifenesin 100 Mg/5 Ml Oral Liqd) 200 mg PO Q6H PRN PRN Reason: Cough Last Admin: 08/12/20 19:37 Dose: 200 mg Documented by: Hydromorphone HCl (Hydromorphone 1 Mg/1 Ml Inj) 0.5 mg IV Q3H PRN PRN Reason: Pain , Severe (7-10) REMDESIVIR 100 mg/ Sodium (Chloride) 250 mls @ 500 mls/hr IV Q24HR@2100 [facility] Stop: 08/15/20 21:29 Last Admin: 08/12/20 21:33 Dose: 500 mls/hr Documented by: Lisinopril (Lisinopril 20 Mg Tab) 20 mg PO QDAY [facility] Last Admin: 08/13/20 11:06 Dose: 20 mg Documented by: Lorazepam (Lorazepam 0.5 Mg Tab) 0.5 mg PO Q8H PRN PRN Reason: Agitation Last Admin: 08/10/20 21:37 Dose: 0.5 mg Documented by: Metformin HCl (Metformin 500 Mg Tab) 500 mg PO QDDIAB [facility] Last Admin: 08/13/20 09:00 Dose: 500 mg Documented by: Methylprednisolone Sodium Succinate (Methylprednisolone Sod Succinate 40 Mg/1 Ml Inj) 40 mg IV Q12HR [facility] Last Admin: 08/13/20 10:52 Dose: 40 mg Documented by: Montelukast Sodium (Montelukast 10 Mg Tab) 10 mg PO QHS [facility] Last Admin: 08/12/20 21:33 Dose: 10 mg Documented by: Nitroglycerin (Nitroglycerin 0.4 Mg Tab Subl) 0.4 mg SL .Q5MIN PRN PRN Reason: Chest Pain Ondansetron HCl (Ondansetron 4 Mg/2 Ml Inj) 4 mg IV Q8H PRN PRN Reason: Nausea And Vomiting Oxycodone/Acetaminophen (Oxycodone /Acetaminophen 5-325mg Tab) 1 tab PO Q6H PRN PRN Reason: Pain, Moderate (4-6) Last Admin: 08/10/20 03:00 Dose: 1 tab Documented by: Pantoprazole Sodium (Pantoprazole 40 Mg Tab) 40 mg PO QDAY [facility] Last Admin: 08/13/20 10:52 Dose: 40 mg Documented by: Sodium Chloride (Sodium Chloride 0.9% 10 Ml Flush Syringe) 10 ml IV BID [facility] Last Admin: 08/13/20 10:52 Dose: 10 ml Documented by: Sodium Chloride (Sodium Chloride 0.9% 10 Ml Flush Syringe) 10 ml IV PRN PRN PRN Reason: LINE FLUSH Last Admin: 08/10/20 01:08 Dose: 10 ml Documented by: Sodium Chloride (Sodium Chloride 0.9% 50 Ml Ivpb) 50 ml IV Q24HR@2100 [facility] Stop: 08/15/20 21:01 Last Admin: 08/12/20 21:34 Dose: 50 ml Documented by: Review of Systems All systems: negative Physical Examination Vital signs: Vital Signs Pulse Ox 100 08/09/20 16:45 General appearance: no acute distress, alert Eyes: non-icteric Neck: supple Effort: normal Ascultation: Bilateral: clear Cardiovascular: regular rate and rhythm (no mrg) Gastrointestinal: normoactive bowel sounds, soft, non-tender Integumentary: normal Extremities: no cyanosis, no edema, pink and warm Musculoskeletal: no deformities normal mental status, non-focal exam, pupils equal and round, CN II-XII normal mood appropriate, affect normal Results - Laboratory Findings CBC and BMP: 08/12/20 07:31 08/13/20 07:56 ABG ABG pH 7.404 pH Units (7.350-7.450) 08/09/20 18:09 ABG pCO2 41.0 mm Hg 08/09/20 18:09 ABG pO2 258.0 mm Hg (80.0-90.0) H 08/09/20 18:09 ABG O2 Saturation 99.4 % (95.0-99.0) H 08/09/20 18:09 PT/INR, D-dimer PT 16.8 Sec. (12.2-14.9) H 08/09/20 17:22 INR 1.38 (0.87-1.13) H 08/09/20 17:22 D-Dimer 243.07 ng/mlDDU (0-234) H 08/09/20 17:22 D-Dimer 243.07 ng/mlDDU (0-234) H 08/09/20 17:22 Abnormal lab findings: Abnormal Labs 08/09/20 08/09/20 08/09/20 10:05 17:22 17:22 WBC Lymph % (Auto) Lymph # (Auto) Seg Neutrophils % Seg Neuts % (Manual) Lymphocytes % (Manual) 4.0 L Seg Neutrophils # Seg Neutrophils # Man Lymphocytes # (Manual) 0.3 L PT 16.8 H INR 1.38 H D-Dimer 243.07 H ABG pO2 ABG O2 Saturation Sodium BUN Glucose POC Glucose Hemoglobin A1c Magnesium Lactate Dehydrogenase Total Creatine Kinase C-Reactive Protein Total Protein Albumin Coronavirus (PCR) Positive A 08/09/20 08/09/20 08/09/20 17:22 17:22 17:22 WBC Lymph % (Auto) Lymph # (Auto) Seg Neutrophils % Seg Neuts % (Manual) Lymphocytes % (Manual) Seg Neutrophils # Seg Neutrophils # Man Lymphocytes # (Manual) PT INR D-Dimer 243.07 H ABG pO2 ABG O2 Saturation Sodium BUN Glucose 228 H 233 H POC Glucose Hemoglobin A1c Magnesium 2.70 H Lactate Dehydrogenase 269 H 248 H Total Creatine Kinase 271 H C-Reactive Protein 2.00 H 2.10 H Total Protein Albumin Coronavirus (PCR) 08/09/20 08/09/20 08/10/20 18:09 23:22 00:10 WBC Lymph % (Auto) Lymph # (Auto) Seg Neutrophils % Seg Neuts % (Manual) Lymphocytes % (Manual) Seg Neutrophils # Seg Neutrophils # Man Lymphocytes # (Manual) PT INR D-Dimer ABG pO2 258.0 H ABG O2 Saturation 99.4 H Sodium BUN Glucose POC Glucose 174 H Hemoglobin A1c 6.1 H Magnesium Lactate Dehydrogenase Total Creatine Kinase C-Reactive Protein Total Protein Albumin Coronavirus (PCR) 08/10/20 08/10/20 08/10/20 07:24 12:11 17:09 WBC Lymph % (Auto) Lymph # (Auto) Seg Neutrophils % Seg Neuts % (Manual) Lymphocytes % (Manual) Seg Neutrophils # Seg Neutrophils # Man Lymphocytes # (Manual) PT INR D-Dimer ABG pO2 ABG O2 Saturation Sodium BUN Glucose POC Glucose 142 H 141 H 184 H Hemoglobin A1c Magnesium Lactate Dehydrogenase Total Creatine Kinase C-Reactive Protein Total Protein Albumin Coronavirus (PCR) 08/11/20 08/11/20 08/11/20 09:24 09:24 12:11 WBC 14.4 H Lymph % (Auto) Lymph # (Auto) Seg Neutrophils % Seg Neuts % (Manual) 94.0 H Lymphocytes % (Manual) 6.0 L Seg Neutrophils # Seg Neutrophils # Man 13.5 H Lymphocytes # (Manual) 0.9 L PT INR D-Dimer ABG pO2 ABG O2 Saturation Sodium 134 L BUN 28 H Glucose 162 H POC Glucose 155 H Hemoglobin A1c Magnesium Lactate Dehydrogenase Total Creatine Kinase C-Reactive Protein Total Protein Albumin Coronavirus (PCR) 08/11/20 08/11/20 08/11/20 14:24 16:08 21:28 WBC Lymph % (Auto) Lymph # (Auto) Seg Neutrophils % Seg Neuts % (Manual) Lymphocytes % (Manual) Seg Neutrophils # Seg Neutrophils # Man Lymphocytes # (Manual) PT INR D-Dimer ABG pO2 ABG O2 Saturation Sodium BUN 28 H Glucose 129 H POC Glucose 145 H 281 H Hemoglobin A1c Magnesium Lactate Dehydrogenase Total Creatine Kinase C-Reactive Protein Total Protein Albumin Coronavirus (PCR) 08/12/20 08/12/20 08/12/20 07:31 07:31 08:56 WBC 12.1 H Lymph % (Auto) 8.0 L Lymph # (Auto) 1.0 L Seg Neutrophils % 88.0 H Seg Neuts % (Manual) Lymphocytes % (Manual) Seg Neutrophils # 10.7 H Seg Neutrophils # Man Lymphocytes # (Manual) PT INR D-Dimer ABG pO2 ABG O2 Saturation Sodium BUN 26 H Glucose 142 H POC Glucose 136 H Hemoglobin A1c Magnesium Lactate Dehydrogenase Total Creatine Kinase C-Reactive Protein Total Protein Albumin 3.7 L Coronavirus (PCR) 08/12/20 08/12/20 08/13/20 18:32 20:12 07:56 WBC Lymph % (Auto) Lymph # (Auto) Seg Neutrophils % Seg Neuts % (Manual) Lymphocytes % (Manual) Seg Neutrophils # Seg Neutrophils # Man Lymphocytes # (Manual) PT INR D-Dimer ABG pO2 ABG O2 Saturation Sodium BUN 27 H Glucose 133 H POC Glucose 158 H 174 H Hemoglobin A1c Magnesium Lactate Dehydrogenase Total Creatine Kinase C-Reactive Protein Total Protein 5.7 L Albumin 3.4 L Coronavirus (PCR) 08/13/20 08/13/20 08:13 12:21 WBC Lymph % (Auto) Lymph # (Auto) Seg Neutrophils % Seg Neuts % (Manual) Lymphocytes % (Manual) Seg Neutrophils # Seg Neutrophils # Man Lymphocytes # (Manual) PT INR D-Dimer ABG pO2 ABG O2 Saturation Sodium BUN Glucose POC Glucose 134 H 112 H Hemoglobin A1c Magnesium Lactate Dehydrogenase Total Creatine Kinase C-Reactive Protein Total Protein Albumin Coronavirus (PCR) - Diagnostic Findings Chest x-ray: report reviewed, image reviewed Assessment and Plan Imp: 1. Covid-19 +/- viral pneumonia 2. Asthma exac. 3. Obesity 4. Acute respiratory failure, hypoxia Rec: 1. Cont. steroids, Remdesivir 2. BIPAP prn; had outpatient PSG with Dr. Yancey and needs to f/u with him DEEPAK re: results 3. On RA when I saw her with clear exam; last documented O2 sat by RT was 98% on 2L; okay with d/c planning pulm-champagne 4. Patient followed by Dr. Yancey as outpatient; if she remains an inpatient, and if Dr. Yancey is still rounding on Covid-19 patients here, then please transfer care to his service in AM Plan of care reviewed w/ patient, she understands/agrees Thanks for the consult.
[2020-08-13] MEDS: MONTELUKAST 10 MG TAB PO SCH (22:01)
[2020-08-13] MEDS: REMDESIVIR 100 MG in SODIUM CHLORIDE 0.9% 250ML 250 ML IV SCH (22:01)
[2020-08-13] MEDS: SODIUM CHLORIDE 0.9% 50 ML IVPB IV SCH (22:32)
[2020-08-14] MEDS: GABAPENTIN 300 MG CAP PO SCH ×3 (06:16→21:44)
[2020-08-14] MEDS: FUROSEMIDE 20 MG TAB PO SCH (06:16)
[2020-08-14] MEDS: IPRATROPIUM/ALBUTEROL SULFATE 3 ML AMPUL.NEB IH SCH ×4 (08:02→20:07)
[2020-08-14 08:34] LABS: Alanine Aminotransferase 12 units/L (7-56); Albumin 3.6 g/dL (3.9-5); BUN/Creatinine Ratio 24; Blood Urea Nitrogen 22 mg/dL (7-17); Calcium 8.6 mg/dL (8.4-10.2); Hemolysis Index 3
[2020-08-14] MEDS: methylPREDNISolone Sod Succinate 40 MG/1 ML INJ IV SCH ×2 (09:35→21:44)
[2020-08-14] MEDS: ASPIRIN 81 MG TAB CHEW PO SCH (09:36)
[2020-08-14] MEDS: LISINOPRIL 20 MG TAB PO SCH (09:36)
[2020-08-14] MEDS: PANTOPRAZOLE 40 MG TAB PO SCH (09:36)
[2020-08-14] MEDS: metFORMIN 500 MG TAB PO SCH (09:36)
[2020-08-14] MEDS: FLUTICASONE PROPIONATE NASAL SPRAY 16 GM NS SCH (09:42)
--- NOTE | 2020-08-14 12:27 | Progress Note ---
Assessment and Plan Assessment and plan: Acute respiratory failure with hypoxia Etiology secondary to COVID-19 pneumonia. Continue oxygen for supportive care Asthma exacerbation Again supportive care with steroid IV, nebulizers, long acting beta agonist and steroid. 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 Physical exam has no evidence of acute heart failure. Chest x-ray unremarkable. Hypertension Optimal control with lisinopril 20 mg 1 tab p.o. 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 Will hold Metformin placed on sliding scale insulin Accu-Cheks before every meal and nightly. Fairly well controlled hemoglobin A1c has been obtained 08/12/2020. Exercise pulse oximetry testing today. Remdesivir initiated by infectious disease. Antibiotic discontinued given low procalcitonin. Wean steroids today and follow-up oxygenation 08/13/2020. Patient with significant hypoxemia requiring BiPAP 16/8 with FiO2 40%. Patient currently on remdesivir and steroids. We will consult pulmonology for further evaluation. ID following. 08/14/2020. Patient with hypoxia that is improved. Exercise pulse oximetry testing today. Await completion of remdesivir given risk factor of asthma and BIPAP at night History Interval history: No new issues overnight Hospitalist Physical - Constitutional Vitals: Temp Pulse Resp BP Pulse Ox 98.5 F 76 20 112/71 99 08/14/20 06:13 08/14/20 08:12 08/14/20 08:12 08/14/20 09:36 08/14/20 08:09 General appearance: Present: no acute distress, well-nourished - EENT Eyes: Present: PERRL, EOM intact ENT: hearing intact, clear oral mucosa, dentition normal - Neck Neck: Present: supple, normal ROM - Respiratory Respiratory effort: normal Respiratory: bilateral: CTA - Cardiovascular Rhythm: regular Heart Sounds: Present: S1 & S2. Absent: gallop, rub - Extremities Extremities: no ischemia, No edema, Full ROM - Abdominal General gastrointestinal: soft, non-tender, non-distended, normal bowel sounds - Integumentary Integumentary: Present: clear, warm, dry - Neurologic Neurologic: CNII-XII intact, moves all extremities HEART Score - HEART Score EKG: Non-specific Age: 45-65 Risk factors: > 3 risk factors or hx of atherosclerotic disease Troponin: Troponin T < 0.010 ng/mL (0.00-0.029) 08/09/20 17:22 Troponin: < normal limit - Critical Actions Critical Actions: 4-6 pts:12-16.6% risk of adverse cardiac event. Should be admitted Results - Labs CBC & Chem 7: 08/12/20 07:31 08/14/20 07:35 Labs: Laboratory Last Values WBC 12.1 K/mm3 (4.5-11.0) H 08/12/20 07:31 RBC 3.72 M/mm3 (3.65-5.03) 08/12/20 07:31 Hgb 11.0 gm/dl (10.1-14.3) 08/12/20 07:31 Hct 32.6 % (30.3-42.9) 08/12/20 07:31 MCV 88 fl (79-97) 08/12/20 07:31 MCH 30 pg (28-32) 08/12/20 07:31 MCHC 34 % (30-34) 08/12/20 07:31 RDW 14.7 % (13.2-15.2) 08/12/20 07:31 Plt Count 267 K/mm3 (140-440) 08/12/20 07:31 Lymph % (Auto) 8.0 % (13.4-35.0) L 08/12/20 07:31 [place] % (Auto) 3.9 % (0.0-7.3) 08/12/20 07:31 Eos % (Auto) 0.0 % (0.0-4.3) 08/12/20 07:31 Baso % (Auto) 0.1 % (0.0-1.8) 08/12/20 07:31 Lymph # (Auto) 1.0 K/mm3 (1.2-5.4) L 08/12/20 07:31 [place] # (Auto) 0.5 K/mm3 (0.0-0.8) 08/12/20 07:31 Eos # (Auto) 0.0 K/mm3 (0.0-0.4) 08/12/20 07:31 Baso # (Auto) 0.0 K/mm3 (0.0-0.1) 08/12/20 07:31 Add Manual Diff Complete 08/11/20 09:24 Total Counted 100 08/11/20 09:24 Seg Neutrophils % 88.0 % (40.0-70.0) H 08/12/20 07:31 Seg Neuts % (Manual) 94.0 % (40.0-70.0) H 08/11/20 09:24 Band Neutrophils % 2.0 % 08/09/20 17:22 Lymphocytes % (Manual) 6.0 % (13.4-35.0) L 08/11/20 09:24 Monocytes % (Manual) 1.0 % (0.0-7.3) 08/09/20 17:22 Nucleated RBC % Not Reportable 08/11/20 09:24 Seg Neutrophils # 10.7 K/mm3 (1.8-7.7) H 08/12/20 07:31 Seg Neutrophils # Man 13.5 K/mm3 (1.8-7.7) H 08/11/20 09:24 Band Neutrophils # 0.0 K/mm3 08/11/20 09:24 Lymphocytes # (Manual) 0.9 K/mm3 (1.2-5.4) L 08/11/20 09:24 Abs React Lymphs (Man) 0.0 K/mm3 08/11/20 09:24 Monocytes # (Manual) 0.0 K/mm3 (0.0-0.8) 08/11/20 09:24 Eosinophils # (Manual) 0.0 K/mm3 (0.0-0.4) 08/11/20 09:24 Basophils # (Manual) 0.0 K/mm3 (0.0-0.1) 08/11/20 09:24 Metamyelocytes # 0.0 K/mm3 08/11/20 09:24 Myelocytes # 0.0 K/mm3 08/11/20 09:24 Promyelocytes # 0.0 K/mm3 08/11/20 09:24 Blast Cells # 0.0 K/mm3 08/11/20 09:24 WBC Morphology Not Reportable 08/11/20 09:24 Hypersegmented Neuts Not Reportable 08/11/20 09:24 Hyposegmented Neuts Not Reportable 08/11/20 09:24 Hypogranular Neuts Not Reportable 08/11/20 09:24 Smudge Cells Not Reportable 08/11/20 09:24 Toxic Granulation 1+ 08/11/20 09:24 Toxic Vacuolation Not Reportable 08/11/20 09:24 Dohle Bodies Not Reportable 08/11/20 09:24 Pelger-Huet Anomaly Not Reportable 08/11/20 09:24 Giuseppe Rods Not Reportable 08/11/20 09:24 Platelet Estimate Consistent w auto 08/11/20 09:24 Clumped Platelets Not Reportable 08/11/20 09:24 Plt Clumps, EDTA Not Reportable 08/11/20 09:24 Large Platelets Not Reportable 08/11/20 09:24 Giant Platelets Not Reportable 08/11/20 09:24 Platelet Satelliting Not Reportable 08/11/20 09:24 Plt Morphology Comment Not Reportable 08/11/20 09:24 RBC Morphology Not Reportable 08/11/20 09:24 Dimorphic RBCs Not Reportable 08/11/20 09:24 Polychromasia Not Reportable 08/11/20 09:24 Hypochromasia Not Reportable 08/11/20 09:24 Poikilocytosis 2+ 08/11/20 09:24 Anisocytosis Not Reportable 08/11/20 09:24 Microcytosis Not Reportable 08/11/20 09:24 Macrocytosis Not Reportable 08/11/20 09:24 Spherocytes Not Reportable 08/11/20 09:24 Pappenheimer Bodies Not Reportable 08/11/20 09:24 Sickle Cells Not Reportable 08/11/20 09:24 Target Cells Not Reportable 08/11/20 09:24 Tear Drop Cells Not Reportable 08/11/20 09:24 Ovalocytes 1+ 08/11/20 09:24 Helmet Cells Not Reportable 08/11/20 09:24 [place] Bodies Not Reportable 08/11/20 09:24 [place] Rings Not Reportable 08/11/20 09:24 [place] Cells 1+ 08/11/20 09:24 Bite Cells Not Reportable 08/11/20 09:24 Crenated Cell Not Reportable 08/11/20 09:24 Elliptocytes Not Reportable 08/11/20 09:24 Acanthocytes (Spur) Not Reportable 08/11/20 09:24 Rouleaux Not Reportable 08/11/20 09:24 Hemoglobin C Crystals Not Reportable 08/11/20 09:24 Schistocytes Not Reportable 08/11/20 09:24 Malaria parasites Not Reportable 08/11/20 09:24 Alfonso Bodies Not Reportable 08/11/20 09:24 Hem Pathologist Commnt No 08/11/20 09:24 PT 16.8 Sec. (12.2-14.9) H 08/09/20 17:22 INR 1.38 (0.87-1.13) H 08/09/20 17:22 APTT 33.6 Sec. (24.2-36.6) 08/09/20 17:22 D-Dimer 243.07 ng/mlDDU (0-234) H 08/09/20 17:22 D-Dimer 243.07 ng/mlDDU (0-234) H 08/09/20 17:22 ABG pH 7.404 pH Units (7.350-7.450) 08/09/20 18:09 ABG pCO2 41.0 mm Hg 08/09/20 18:09 ABG pO2 258.0 mm Hg (80.0-90.0) H 08/09/20 18:09 ABG HCO3 25.1 mmol/L (20.0-26.0) 08/09/20 18:09 ABG O2 Saturation 99.4 % (95.0-99.0) H 08/09/20 18:09 ABG O2 Content 17.8 (0.0-44) 08/09/20 18:09 ABG Base Excess 0.3 mmol/L (-2.0-3.0) 08/09/20 18:09 ABG Hemoglobin 12.5 gm/dl (12.0-16.0) 08/09/20 18:09 ABG Carboxyhemoglobin 1.0 % (0.0-5.0) 08/09/20 18:09 ABG Methemoglobin 0.6 % (0.0-1.5) 08/09/20 18:09 Oxyhemoglobin 97.9 % (95.0-99.0) 08/09/20 18:09 FiO2 60 % 08/09/20 18:09 Sodium 135 mmol/L (137-145) L 08/14/20 07:35 Potassium 4.3 mmol/L (3.6-5.0) 08/14/20 07:35 Chloride 101.0 mmol/L (98-107) 08/14/20 07:35 Carbon Dioxide 28 mmol/L (22-30) 08/14/20 07:35 Anion Gap 10 mmol/L 08/14/20 07:35 BUN 22 mg/dL (7-17) H 08/14/20 07:35 Creatinine 0.9 mg/dL (0.6-1.2) 08/14/20 07:35 Estimated GFR > 60 ml/min 08/14/20 07:35 BUN/Creatinine Ratio 24 % 08/14/20 07:35 Glucose 112 mg/dL (65-100) H 08/14/20 07:35 POC Glucose 101 mg/dL (70-105) 08/14/20 07:50 Hemoglobin A1c 6.1 % (4-6) H 08/10/20 00:10 Lactic Acid 1.90 mmol/L (0.7-2.0) 08/09/20 17:22 Calcium 8.6 mg/dL (8.4-10.2) 08/14/20 07:35 Magnesium 2.70 mg/dL (1.7-2.3) H 08/09/20 17:22 Ferritin 119.9 ng/mL (10.0-200.0) 08/09/20 17:22 Total Bilirubin 0.20 mg/dL (0.1-1.2) 08/14/20 07:35 AST 10 units/L (5-40) 08/14/20 07:35 ALT 12 units/L (7-56) 08/14/20 07:35 Alkaline Phosphatase 55 units/L (35-129) 08/14/20 07:35 Lactate Dehydrogenase 248 units/L (91-180) H 08/09/20 17:22 Lactate Dehydrogenase 269 units/L (91-180) H 08/09/20 17:22 Total Creatine Kinase 271 units/L (30-135) H 08/09/20 17:22 Troponin T < 0.010 ng/mL (0.00-0.029) 08/09/20 17:22 C-Reactive Protein 2.00 mg/dL (0.00-1.30) H 08/09/20 17:22 C-Reactive Protein 2.10 mg/dL (0.00-1.30) H 08/09/20 17:22 NT-Pro-B Natriuret Pep 266.4 pg/mL (0-900) 08/09/20 17:22 Total Protein 6.0 g/dL (6.3-8.2) L 08/14/20 07:35 Albumin 3.6 g/dL (3.9-5) L 08/14/20 07:35 Albumin/Globulin Ratio 1.5 % 08/14/20 07:35 Procalcitonin < 0.05 ng/mL (<0.15) 08/09/20 17:22 Coronavirus (PCR) Positive (Negative) A 08/09/20 10:05 Microbiology: Microbiology 08/09/20 17:22 Peripheral/Venous Blood Culture - Preliminary NO GROWTH AFTER 4 DAYS 08/09/20 17:22 Peripheral/Venous Blood Culture - Preliminary NO GROWTH AFTER 4 DAYS Calder[place]/IV: Voiding Method Toilet Active Medications - Current Medications Current Medications: Generic Name Dose Route Start Last Admin Trade Name Freq PRN Reason Stop Dose Admin Acetaminophen 650 mg 08/10/20 00:09 Acetaminophen 325 Mg Tab PO Q4H PRN Pain MILD(1-3)/Fever >100.5/ANTONIO Albuterol 2.5 mg 08/10/20 00:30 Albuterol 2.5 Mg/3 Ml Nebu IH Q3HRT PRN Wheezing/ SOB Albuterol/Ipratropium 1 ampul 08/10/20 08:00 08/14/20 08:02 Ipratropium/Albuterol Sulfate 3 Ml Ampul.Neb IH 1 ampul QIDRT REANNA Administration Aspirin 81 mg 08/10/20 10:00 08/14/20 09:36 Aspirin 81 Mg Tab Chew PO 81 mg QDAY REANNA Administration Fluticasone Propionate 50 mcg 08/10/20 10:00 08/14/20 09:42 Fluticasone Propionate Nasal [place] 16 Gm NS 50 mcg QDAY REANNA Administration Furosemide 20 mg 08/10/20 06:00 08/14/20 06:16 Furosemide 20 Mg Tab PO 20 mg DAILY@0600 REANNA Administration Gabapentin 300 mg 08/10/20 00:45 08/14/20 06:16 Gabapentin 300 Mg Cap PO 300 mg Q8HR REANNA Administration Guaifenesin 200 mg 08/11/20 17:44 08/12/20 19:37 Guaifenesin 100 Mg/5 Ml Oral Liqd PO 200 mg Q6H PRN Administration Cough Hydromorphone HCl 0.5 mg 08/10/20 00:09 Hydromorphone 1 Mg/1 Ml Inj IV Q3H PRN Pain , Severe (7-10) REMDESIVIR 100 mg/ Sodium 250 mls @ 500 mls/hr 08/12/20 21:00 08/13/20 22:01 Chloride IV 08/15/20 21:29 500 mls/hr Q24HR@2100 REANNA Administration Lisinopril 20 mg 08/10/20 10:00 08/14/20 09:36 Lisinopril 20 Mg Tab PO 20 mg QDAY REANNA Administration Lorazepam 0.5 mg 08/10/20 10:41 08/10/20 21:37 Lorazepam 0.5 Mg Tab PO 0.5 mg Q8H PRN Administration Agitation Metformin HCl 500 mg 08/10/20 08:00 08/14/20 09:36 Metformin 500 Mg Tab PO 500 mg QDDIAB REANNA Administration Methylprednisolone Sodium Succinate 40 mg 08/12/20 10:00 08/14/20 09:35 Methylprednisolone Sod Succinate 40 Mg/1 Ml Inj IV 40 mg Q12HR REANNA Administration Montelukast Sodium 10 mg 08/10/20 00:45 08/13/20 22:01 Montelukast 10 Mg Tab PO 10 mg QHS REANNA Administration Nitroglycerin 0.4 mg 08/09/20 17:11 Nitroglycerin 0.4 Mg Tab Subl SL .Q5MIN PRN Chest Pain Ondansetron HCl 4 mg 08/10/20 00:09 Ondansetron 4 Mg/2 Ml Inj IV Q8H PRN Nausea And Vomiting Oxycodone/Acetaminophen 1 tab 08/10/20 00:09 08/10/20 03:00 Oxycodone /Acetaminophen 5-325mg Tab PO 1 tab Q6H PRN Administration Pain, Moderate (4-6) Pantoprazole Sodium 40 mg 08/10/20 10:00 08/14/20 09:36 Pantoprazole 40 Mg Tab PO 40 mg QDAY REANNA Administration Sodium Chloride 10 ml 08/10/20 10:00 08/14/20 09:37 Sodium Chloride 0.9% 10 Ml Flush Syringe IV 10 ml BID REANNA Administration Sodium Chloride 10 ml 08/10/20 00:09 08/10/20 01:08 Sodium Chloride 0.9% 10 Ml Flush Syringe IV 10 ml PRN PRN Administration LINE FLUSH Sodium Chloride 50 ml 08/11/20 16:00 08/13/20 22:32 Sodium Chloride 0.9% 50 Ml Ivpb IV 08/15/20 21:01 50 ml Q24HR@2100 REANNA Administration
--- NOTE | 2020-08-14 12:39 | Progress Note ---
Assessment and Plan Cultures: SARS CoV2 PCR: Positive 08/09/2020 blood culture: No growth A/P: 54-year-old female with hypertension, diabetes, CHF, severe asthma admitted with: #COVID-19: Chest x-ray did not reveal any obvious pneumonia but patient was hypoxic. Procalcitonin 0.05. Antibiotics discontinued #Acute hypoxic respiratory failure: On nasal cannula #Acute asthma exacerbation: On steroids Recs: -steroid weaning per primary / pulmonary team -on remdesivir D4 -eval for home oxygen prior to discharge, OK for discharge from ID standpoint ID will sign off. Please call with questions. Jacquie Bocanegra MD, FACP [facility] O: [phone] F: [phone] Subjective Date of service: 08/14/20 Principal diagnosis: Acute hypoxic respiratory failure Interval history: No fever. Remains stable on 2 L oxygen by nasal cannula. Objective - Exam Narrative Exam: Physical Exam (reviewed in chart to minimize risk of transmission) Constitutional: deferred Head, Ears, Nose: deferred Eyes: deferred Neck: deferred Oral: deferred Cardiovascular: deferred Respiratory: deferred GI: deferred Musculoskeletal: deferred Skin: deferred Hem/Lymphatic: deferred Psych: deferred Neurological: deferred - Constitutional Vitals: Vital Signs Temp Pulse Resp BP Pulse Ox 98.5 F 76 20 112/71 99 08/14/20 06:13 08/14/20 08:12 08/14/20 08:12 08/14/20 09:36 08/14/20 08:09 Temperature -Last 24 Hours Temperature 98.5 F Temperature 97.9 F Temperature 98.4 F - Labs CBC & Chem 7: 08/12/20 07:31 08/14/20 07:35 Labs: Abnormal lab results 08/13/20 08/13/20 08/13/20 Range/Units 08:13 12:21 16:52 Sodium (137-145) mmol/L BUN (7-17) mg/dL Glucose (65-100) mg/dL POC Glucose 134 H 112 H 189 H (70-105) mg/dL Total Protein (6.3-8.2) g/dL Albumin (3.9-5) g/dL 08/13/20 08/14/20 Range/Units 21:28 07:35 Sodium 135 L (137-145) mmol/L BUN 22 H (7-17) mg/dL Glucose 112 H (65-100) mg/dL POC Glucose 187 H (70-105) mg/dL Total Protein 6.0 L (6.3-8.2) g/dL Albumin 3.6 L (3.9-5) g/dL
--- NOTE | 2020-08-14 13:46 | Progress Note ---
Assessment and Plan Assessment and Plan Imp: 1. Covid-19 +/- viral pneumonia 2. Asthma exac. 3. Obesity 4. Acute respiratory failure, hypoxia Rec: 1. Cont. steroids, Remdesivir 2. BIPAP prn; had outpatient PSG with Dr. Yancey and needs to f/u with him DEEPAK re: results 3. On RA when I saw her with clear exam; last documented O2 sat by RT was 98% on 2L; okay with d/c planning pulm-champagne 4. Patient followed by Dr. Yancey as outpatient; if she remains an inpatient, and if Dr. Yancey is still rounding on Covid-19 patients here, then please transfer care to his service in AM P Subjective Date of service: 08/14/20 Principal diagnosis: Acute hypoxic respiratory failure Interval history: No change. Feels reasonably well. Comfortable on room air. Used BiPAP last night. Has history of asthma Objective Vital Signs - 12hr 08/14/20 08/14/20 08/14/20 06:13 08:09 08:12 Temperature 98.5 F Pulse Rate 69 Pulse Rate [ 76 Anterior Bilateral Throughout] Respiratory 18 Rate Respiratory 20 Rate [Anterior Bilateral Throughout] Blood Pressure 115/71 O2 Sat by Pulse 97 99 Oximetry 08/14/20 08/14/20 08/14/20 09:36 11:50 12:52 Temperature 98.4 F Pulse Rate 65 Pulse Rate [ 74 Anterior Bilateral Throughout] Respiratory 18 Rate Respiratory 20 Rate [Anterior Bilateral Throughout] Blood Pressure 112/71 99/60 O2 Sat by Pulse 98 Oximetry Constitutional: no acute distress, alert Eyes: non-icteric Neck: supple Effort: normal Ascultation: Bilateral: clear Cardiovascular: regular rate and rhythm (no mrg) Gastrointestinal: normoactive bowel sounds, soft, non-tender Integumentary: normal Extremities: no cyanosis, no edema, pink and warm Neurologic: normal mental status, non-focal exam, pupils equal and round, CN II- XII normal Psychiatric: mood appropriate, affect normal CBC and BMP: 08/12/20 07:31 08/14/20 07:35 ABG, PT/INR, D-dimer: ABG ABG pH 7.404 pH Units (7.350-7.450) 08/09/20 18:09 ABG pCO2 41.0 mm Hg 08/09/20 18:09 ABG pO2 258.0 mm Hg (80.0-90.0) H 08/09/20 18:09 ABG O2 Saturation 99.4 % (95.0-99.0) H 08/09/20 18:09 PT/INR, D-dimer PT 16.8 Sec. (12.2-14.9) H 08/09/20 17:22 INR 1.38 (0.87-1.13) H 08/09/20 17:22 D-Dimer 243.07 ng/mlDDU (0-234) H 08/09/20 17:22 D-Dimer 243.07 ng/mlDDU (0-234) H 08/09/20 17:22 Abnormal lab findings: Abnormal Labs 08/09/20 08/09/20 08/09/20 10:05 17:22 17:22 WBC Lymph % (Auto) Lymph # (Auto) Seg Neutrophils % Seg Neuts % (Manual) Lymphocytes % (Manual) 4.0 L Seg Neutrophils # Seg Neutrophils # Man Lymphocytes # (Manual) 0.3 L PT 16.8 H INR 1.38 H D-Dimer 243.07 H ABG pO2 ABG O2 Saturation Sodium BUN Glucose POC Glucose Hemoglobin A1c Magnesium Lactate Dehydrogenase Total Creatine Kinase C-Reactive Protein Total Protein Albumin Coronavirus (PCR) Positive A 08/09/20 08/09/20 08/09/20 17:22 17:22 17:22 WBC Lymph % (Auto) Lymph # (Auto) Seg Neutrophils % Seg Neuts % (Manual) Lymphocytes % (Manual) Seg Neutrophils # Seg Neutrophils # Man Lymphocytes # (Manual) PT INR D-Dimer 243.07 H ABG pO2 ABG O2 Saturation Sodium BUN Glucose 228 H 233 H POC Glucose Hemoglobin A1c Magnesium 2.70 H Lactate Dehydrogenase 269 H 248 H Total Creatine Kinase 271 H C-Reactive Protein 2.00 H 2.10 H Total Protein Albumin Coronavirus (PCR) 08/09/20 08/09/20 08/10/20 18:09 23:22 00:10 WBC Lymph % (Auto) Lymph # (Auto) Seg Neutrophils % Seg Neuts % (Manual) Lymphocytes % (Manual) Seg Neutrophils # Seg Neutrophils # Man Lymphocytes # (Manual) PT INR D-Dimer ABG pO2 258.0 H ABG O2 Saturation 99.4 H Sodium BUN Glucose POC Glucose 174 H Hemoglobin A1c 6.1 H Magnesium Lactate Dehydrogenase Total Creatine Kinase C-Reactive Protein Total Protein Albumin Coronavirus (PCR) 08/10/20 08/10/20 08/10/20 07:24 12:11 17:09 WBC Lymph % (Auto) Lymph # (Auto) Seg Neutrophils % Seg Neuts % (Manual) Lymphocytes % (Manual) Seg Neutrophils # Seg Neutrophils # Man Lymphocytes # (Manual) PT INR D-Dimer ABG pO2 ABG O2 Saturation Sodium BUN Glucose POC Glucose 142 H 141 H 184 H Hemoglobin A1c Magnesium Lactate Dehydrogenase Total Creatine Kinase C-Reactive Protein Total Protein Albumin Coronavirus (PCR) 08/11/20 08/11/20 08/11/20 09:24 09:24 12:11 WBC 14.4 H Lymph % (Auto) Lymph # (Auto) Seg Neutrophils % Seg Neuts % (Manual) 94.0 H Lymphocytes % (Manual) 6.0 L Seg Neutrophils # Seg Neutrophils # Man 13.5 H Lymphocytes # (Manual) 0.9 L PT INR D-Dimer ABG pO2 ABG O2 Saturation Sodium 134 L BUN 28 H Glucose 162 H POC Glucose 155 H Hemoglobin A1c Magnesium Lactate Dehydrogenase Total Creatine Kinase C-Reactive Protein Total Protein Albumin Coronavirus (PCR) 08/11/20 08/11/20 08/11/20 14:24 16:08 21:28 WBC Lymph % (Auto) Lymph # (Auto) Seg Neutrophils % Seg Neuts % (Manual) Lymphocytes % (Manual) Seg Neutrophils # Seg Neutrophils # Man Lymphocytes # (Manual) PT INR D-Dimer ABG pO2 ABG O2 Saturation Sodium BUN 28 H Glucose 129 H POC Glucose 145 H 281 H Hemoglobin A1c Magnesium Lactate Dehydrogenase Total Creatine Kinase C-Reactive Protein Total Protein Albumin Coronavirus (PCR) 08/12/20 08/12/20 08/12/20 07:31 07:31 08:56 WBC 12.1 H Lymph % (Auto) 8.0 L Lymph # (Auto) 1.0 L Seg Neutrophils % 88.0 H Seg Neuts % (Manual) Lymphocytes % (Manual) Seg Neutrophils # 10.7 H Seg Neutrophils # Man Lymphocytes # (Manual) PT INR D-Dimer ABG pO2 ABG O2 Saturation Sodium BUN 26 H Glucose 142 H POC Glucose 136 H Hemoglobin A1c Magnesium Lactate Dehydrogenase Total Creatine Kinase C-Reactive Protein Total Protein Albumin 3.7 L Coronavirus (PCR) 08/12/20 08/12/20 08/13/20 18:32 20:12 07:56 WBC Lymph % (Auto) Lymph # (Auto) Seg Neutrophils % Seg Neuts % (Manual) Lymphocytes % (Manual) Seg Neutrophils # Seg Neutrophils # Man Lymphocytes # (Manual) PT INR D-Dimer ABG pO2 ABG O2 Saturation Sodium BUN 27 H Glucose 133 H POC Glucose 158 H 174 H Hemoglobin A1c Magnesium Lactate Dehydrogenase Total Creatine Kinase C-Reactive Protein Total Protein 5.7 L Albumin 3.4 L Coronavirus (PCR) 08/13/20 08/13/20 08/13/20 08:13 12:21 16:52 WBC Lymph % (Auto) Lymph # (Auto) Seg Neutrophils % Seg Neuts % (Manual) Lymphocytes % (Manual) Seg Neutrophils # Seg Neutrophils # Man Lymphocytes # (Manual) PT INR D-Dimer ABG pO2 ABG O2 Saturation Sodium BUN Glucose POC Glucose 134 H 112 H 189 H Hemoglobin A1c Magnesium Lactate Dehydrogenase Total Creatine Kinase C-Reactive Protein Total Protein Albumin Coronavirus (PCR) 08/13/20 08/14/20 21:28 07:35 WBC Lymph % (Auto) Lymph # (Auto) Seg Neutrophils % Seg Neuts % (Manual) Lymphocytes % (Manual) Seg Neutrophils # Seg Neutrophils # Man Lymphocytes # (Manual) PT INR D-Dimer ABG pO2 ABG O2 Saturation Sodium 135 L BUN 22 H Glucose 112 H POC Glucose 187 H Hemoglobin A1c Magnesium Lactate Dehydrogenase Total Creatine Kinase C-Reactive Protein Total Protein 6.0 L Albumin 3.6 L Coronavirus (PCR)
[2020-08-14] MEDS: MONTELUKAST 10 MG TAB PO SCH (21:44)
[2020-08-14] MEDS: REMDESIVIR 100 MG in SODIUM CHLORIDE 0.9% 250ML 250 ML IV SCH (21:44)
[2020-08-14] MEDS: SODIUM CHLORIDE 0.9% 50 ML IVPB IV SCH (22:15)
[2020-08-15] MEDS: LORazepam 0.5 MG TAB PO PRN (02:09)
[2020-08-15] MEDS ORDERED: SODIUM CHLORIDE 0.9% 500 ML 500 ML IV ONE (02:42)
[2020-08-15] MEDS: HEPARIN 5,000 UNIT/1 ML VIAL SUB-Q SCH ×2 (03:47→09:48)
[2020-08-15] MEDS ORDERED: SODIUM CHLORIDE 0.9% 250ML 250 ML IV ONE (05:06)
[2020-08-15] MEDS ORDERED: AMIODARONE 150 MG/3 ML INJ IV ONE (06:17)
[2020-08-15] MEDS ORDERED: ALPRAZolam 0.25 MG TAB PO NR (06:38)
--- NOTE | 2020-08-15 06:47 | Event Note ---
Date: 08/15/20 Called to the patient room by patient nurse. Patient's heart rate 130s to 150s. Normal saline bolus given. EKG done. Patient is in A. fib with rapid ventricular response. Patient heart rates continue to be high and she is in A. fib even after normal saline bolus. Blood pressure is stable at 103/74. patient alert and oriented but Very anxious. Pattern Data Operator consulted echocardiogram ordered. Patient continued to be in A. fib 140s 150s. Amiodarone 150 mg bolus given and amiodarone drip ordered. Patient heart rate dropped to 80s to 90s after amiodarone bolus. Will transfer to patient to the ICU if Patient heart rate continue to be > 100s and if a-fib persist- we will start amiodarone drip. On assessment, patient is alert oriented x3. She denies a history of A. fib, denies alcohol use, denies tobacco use or illicit drug use. But patient admits anxiety and depression. Patient said she was given medication for anxiety during her previous admission to the hospital but she cannot remember the name of the medicine. Patient is not in acute distress at the time of my assessment but I appears very anxious. Patient had multiple questions about the course of the A. fib that she has. All questions answered. I spoke to patient's son. He also has multiple questions and all the questions answered. Patient is on BiPAP and she has history of asthma.
[2020-08-15] MEDS ORDERED: AMIODARONE 150 MG in DEXTROSE 5% IN WATER 97 ML IV ONE (07:00)
[2020-08-15] MEDS ORDERED: AMIODARONE 900 MG in DEXTROSE 5% IN WATER 482 ML IV SCH (07:00)
[2020-08-15] MEDS: IPRATROPIUM/ALBUTEROL SULFATE 3 ML AMPUL.NEB IH SCH ×4 (08:22→19:27)
--- NOTE | 2020-08-15 08:35 | Progress Note ---
Assessment and Plan Assessment and plan: Acute respiratory failure with hypoxia Etiology secondary to COVID-19 pneumonia. Asthma exacerbation A. 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 Exercise pulse oximetry testing today. Remdesivir initiated by infectious disease. Antibiotic discontinued given low procalcitonin. Wean steroids today and follow-up oxygenation 08/13/2020. Patient with significant hypoxemia requiring BiPAP 16/8 with FiO2 40%. Patient currently on remdesivir and steroids. We will consult pulmonology for further evaluation. ID following. 08/14/2020. Patient with hypoxia that is improved. Exercise pulse oximetry testing today. Await completion of remdesivir given risk factor of asthma and BIPAP at night 08/15/2020. Patient with episode of A. fib with RVR last evening and a couple episodes this morning. Patient with no history of atrial fibrillation. Cardiology consulted for new onset A. fib. Check echocardiogram. Check cardiac isoenzymes, D-dimer and TSH. Patient will be transferred to the [facility] and placed on amiodarone drip. Continue BiPAP as clinically indicated for respiratory failure/asthma exacerbation. History Interval history: Patient with episode of A. fib with RVR that occurred last evening. Hospitalist Physical - Constitutional Vitals: Temp Pulse Resp BP Pulse Ox 97.6 F 81 18 127/82 99 08/15/20 03:47 08/15/20 06:43 08/15/20 06:43 08/15/20 06:43 08/15/20 06:43 General appearance: Present: no acute distress, well-nourished - EENT Eyes: Present: PERRL, EOM intact ENT: hearing intact, clear oral mucosa, dentition normal - Neck Neck: Present: supple, normal ROM - Respiratory Respiratory effort: normal Respiratory: bilateral: CTA - Cardiovascular Rhythm: regular Heart Sounds: Present: S1 & S2. Absent: gallop, rub - Extremities Extremities: no ischemia, No edema, Full ROM - Abdominal General gastrointestinal: soft, non-tender, non-distended, normal bowel sounds - Integumentary Integumentary: Present: clear, warm, dry - Neurologic Neurologic: CNII-XII intact, moves all extremities HEART Score - HEART Score EKG: Non-specific Age: 45-65 Risk factors: > 3 risk factors or hx of atherosclerotic disease Troponin: Troponin T < 0.010 ng/mL (0.00-0.029) 08/09/20 17:22 Troponin: < normal limit - Critical Actions Critical Actions: 4-6 pts:12-16.6% risk of adverse cardiac event. Should be admitted Results - Labs CBC & Chem 7: 08/12/20 07:31 08/14/20 07:35 Labs: Laboratory Last Values WBC 12.1 K/mm3 (4.5-11.0) H 08/12/20 07:31 RBC 3.72 M/mm3 (3.65-5.03) 08/12/20 07:31 Hgb 11.0 gm/dl (10.1-14.3) 08/12/20 07: Hct 32.6 % (30.3-42.9) 08/12/20 07:31 MCV 88 fl (79-97) 08/12/20 07: MCH 30 pg (28-32) 08/12/20 07: MCHC 34 % (30-34) 08/12/20 07:31 RDW 14.7 % (13.2-15.2) 08/12/20 07:31 Plt Count 267 K/mm3 (140-440) 08/12/20 07:31 Lymph % (Auto) 8.0 % (13.4-35.0) L 08/12/20 07:31 [place] % (Auto) 3.9 % (0.0-7.3) 08/12/20 07: Eos % (Auto) 0.0 % (0.0-4.3) 08/12/20 07:31 Baso % (Auto) 0.1 % (0.0-1.8) 08/12/20 07:31 Lymph # (Auto) 1.0 K/mm3 (1.2-5.4) L 08/12/20 07: [place] # (Auto) 0.5 K/mm3 (0.0-0.8) 08/12/20 07:31 Eos # (Auto) 0.0 K/mm3 (0.0-0.4) 08/12/20 07:31 Baso # (Auto) 0.0 K/mm3 (0.0-0.1) 08/12/20 07:31 Add Manual Diff Complete 08/11/20 09:24 Total Counted 100 08/11/20 09:24 Seg Neutrophils % 88.0 % (40.0-70.0) H 08/12/20 07:31 Seg Neuts % (Manual) 94.0 % (40.0-70.0) H 08/11/20 09:24 Band Neutrophils % 2.0 % 08/09/20 17:22 Lymphocytes % (Manual) 6.0 % (13.4-35.0) L 08/11/20 09:24 Monocytes % (Manual) 1.0 % (0.0-7.3) 08/09/20 17:22 Nucleated RBC % Not Reportable 08/11/20 09:24 Seg Neutrophils # 10.7 K/mm3 (1.8-7.7) H 08/12/20 07:31 Seg Neutrophils # Man 13.5 K/mm3 (1.8-7.7) H 08/11/20 09:24 Band Neutrophils # 0.0 K/mm3 08/11/20 09:24 Lymphocytes # (Manual) 0.9 K/mm3 (1.2-5.4) L 08/11/20 09:24 Abs React Lymphs (Man) 0.0 K/mm3 08/11/20 09:24 Monocytes # (Manual) 0.0 K/mm3 (0.0-0.8) 08/11/20 09:24 Eosinophils # (Manual) 0.0 K/mm3 (0.0-0.4) 08/11/20 09:24 Basophils # (Manual) 0.0 K/mm3 (0.0-0.1) 08/11/20 09:24 Metamyelocytes # 0.0 K/mm3 08/11/20 09:24 Myelocytes # 0.0 K/mm3 08/11/20 09:24 Promyelocytes # 0.0 K/mm3 08/11/20 09:24 Blast Cells # 0.0 K/mm3 08/11/20 09:24 WBC Morphology Not Reportable 08/11/20 09:24 Hypersegmented Neuts Not Reportable 08/11/20 09:24 Hyposegmented Neuts Not Reportable 08/11/20 09:24 Hypogranular Neuts Not Reportable 08/11/20 09:24 Smudge Cells Not Reportable 08/11/20 09:24 Toxic Granulation 1+ 08/11/20 09:24 Toxic Vacuolation Not Reportable 08/11/20 09:24 Dohle Bodies Not Reportable 08/11/20 09:24 Pelger-Huet Anomaly Not Reportable 08/11/20 09:24 Giuseppe Rods Not Reportable 08/11/20 09:24 Platelet Estimate Consistent w auto 08/11/20 09:24 Clumped Platelets Not Reportable 08/11/20 09:24 Plt Clumps, EDTA Not Reportable 08/11/20 09:24 Large Platelets Not Reportable 08/11/20 09:24 Giant Platelets Not Reportable 08/11/20 09:24 Platelet Satelliting Not Reportable 08/11/20 09:24 Plt Morphology Comment Not Reportable 08/11/20 09:24 RBC Morphology Not Reportable 08/11/20 09:24 Dimorphic RBCs Not Reportable 08/11/20 09:24 Polychromasia Not Reportable 08/11/20 09:24 Hypochromasia Not Reportable 08/11/20 09:24 Poikilocytosis 2+ 08/11/20 09:24 Anisocytosis Not Reportable 08/11/20 09:24 Microcytosis Not Reportable 08/11/20 09:24 Macrocytosis Not Reportable 08/11/20 09:24 Spherocytes Not Reportable 08/11/20 09:24 Pappenheimer Bodies Not Reportable 08/11/20 09:24 Sickle Cells Not Reportable 08/11/20 09:24 Target Cells Not Reportable 08/11/20 09:24 Tear Drop Cells Not Reportable 08/11/20 09:24 Ovalocytes 1+ 08/11/20 09:24 Helmet Cells Not Reportable 08/11/20 09:24 [place] Bodies Not Reportable 08/11/20 09:24 [place] Rings Not Reportable 08/11/20 09:24 Arvin Cells 1+ 08/11/20 09:24 Bite Cells Not Reportable 08/11/20 09:24 Crenated Cell Not Reportable 08/11/20 09:24 Elliptocytes Not Reportable 08/11/20 09:24 Acanthocytes (Spur) Not Reportable 08/11/20 09:24 Rouleaux Not Reportable 08/11/20 09:24 Hemoglobin C Crystals Not Reportable 08/11/20 09:24 Schistocytes Not Reportable 08/11/20 09:24 Malaria parasites Not Reportable 08/11/20 09:24 Alfonso Bodies Not Reportable 08/11/20 09:24 Hem Pathologist Commnt No 08/11/20 09:24 PT 16.8 Sec. (12.2-14.9) H 08/09/20 17:22 INR 1.38 (0.87-1.13) H 08/09/20 17:22 APTT 33.6 Sec. (24.2-36.6) 08/09/20 17:22 D-Dimer 243.07 ng/mlDDU (0-234) H 08/09/20 17:22 D-Dimer 243.07 ng/mlDDU (0-234) H 08/09/20 17:22 ABG pH 7.404 pH Units (7.350-7.450) 08/09/20 18:09 ABG pCO2 41.0 mm Hg 08/09/20 18:09 ABG pO2 258.0 mm Hg (80.0-90.0) H 08/09/20 18:09 ABG HCO3 25.1 mmol/L (20.0-26.0) 08/09/20 18:09 ABG O2 Saturation 99.4 % (95.0-99.0) H 08/09/20 18:09 ABG O2 Content 17.8 (0.0-44) 08/09/20 18:09 ABG Base Excess 0.3 mmol/L (-2.0-3.0) 08/09/20 18:09 ABG Hemoglobin 12.5 gm/dl (12.0-16.0) 08/09/20 18:09 ABG Carboxyhemoglobin 1.0 % (0.0-5.0) 08/09/20 18:09 ABG Methemoglobin 0.6 % (0.0-1.5) 08/09/20 18:09 Oxyhemoglobin 97.9 % (95.0-99.0) 08/09/20 18:09 FiO2 60 % 08/09/20 18:09 Sodium 135 mmol/L (137-145) L 08/14/20 07:35 Potassium 4.3 mmol/L (3.6-5.0) 08/14/20 07:35 Chloride 101.0 mmol/L (98-107) 08/14/20 07:35 Carbon Dioxide 28 mmol/L (22-30) 08/14/20 07:35 Anion Gap 10 mmol/L 08/14/20 07:35 BUN 22 mg/dL (7-17) H 08/14/20 07:35 Creatinine 0.9 mg/dL (0.6-1.2) 08/14/20 07:35 Estimated GFR > 60 ml/min 08/14/20 07:35 BUN/Creatinine Ratio 24 % 08/14/20 07:35 Glucose 112 mg/dL (65-100) H 08/14/20 07:35 POC Glucose 147 mg/dL (70-105) H 08/14/20 15:55 Hemoglobin A1c 6.1 % (4-6) H 08/10/20 00:10 Lactic Acid 1.90 mmol/L (0.7-2.0) 08/09/20 17:22 Calcium 8.6 mg/dL (8.4-10.2) 08/14/20 07:35 Magnesium 2.70 mg/dL (1.7-2.3) H 08/09/20 17:22 Ferritin 119.9 ng/mL (10.0-200.0) 08/09/20 17:22 Total Bilirubin 0.20 mg/dL (0.1-1.2) 08/14/20 07:35 AST 10 units/L (5-40) 08/14/20 07:35 ALT 12 units/L (7-56) 08/14/20 07:35 Alkaline Phosphatase 55 units/L (35-129) 08/14/20 07:35 Lactate Dehydrogenase 248 units/L (91-180) H 08/09/20 17:22 Lactate Dehydrogenase 269 units/L (91-180) H 08/09/20 17:22 Total Creatine Kinase 271 units/L (30-135) H 08/09/20 17:22 Troponin T < 0.010 ng/mL (0.00-0.029) 08/09/20 17:22 C-Reactive Protein 2.00 mg/dL (0.00-1.30) H 08/09/20 17:22 C-Reactive Protein 2.10 mg/dL (0.00-1.30) H 08/09/20 17:22 NT-Pro-B Natriuret Pep 266.4 pg/mL (0-900) 08/09/20 17:22 Total Protein 6.0 g/dL (6.3-8.2) L 08/14/20 07:35 Albumin 3.6 g/dL (3.9-5) L 08/14/20 07:35 Albumin/Globulin Ratio 1.5 % 08/14/20 07:35 Procalcitonin < 0.05 ng/mL (<0.15) 08/09/20 17:22 Coronavirus (PCR) Positive (Negative) A 08/09/20 10:05 Microbiology: Microbiology 08/09/20 17:22 Peripheral/Venous Blood Culture - Final NO GROWTH AFTER 5 DAYS 08/09/20 17:22 Peripheral/Venous Blood Culture - Final NO GROWTH AFTER 5 DAYS Calderon/IV: Voiding Method Toilet Active Medications - Current Medications Current Medications: Generic Name Dose Route Start Last Admin Trade Name Freq PRN Reason Stop Dose Admin Acetaminophen 650 mg 08/10/20 00:09 Acetaminophen 325 Mg Tab PO Q4H PRN Pain MILD(1-3)/Fever >100.5/ANTONIO Albuterol 2.5 mg 08/10/20 00:30 Albuterol 2.5 Mg/3 Ml Nebu IH Q3HRT PRN Wheezing/ SOB Albuterol/Ipratropium 1 ampul 08/10/20 08:00 08/15/20 08:22 Ipratropium/Albuterol Sulfate 3 Ml Ampul.Neb IH 1 ampul QIDRT REANNA Administration Aspirin 81 mg 08/10/20 10:00 08/14/20 09:36 Aspirin 81 Mg Tab Chew PO 81 mg QDAY REANNA Administration Fluticasone Propionate 50 mcg 08/10/20 10:00 08/14/20 09:42 Fluticasone Propionate Nasal [place] 16 Gm NS 50 mcg QDAY REANNA Administration Furosemide 20 mg 08/10/20 06:00 08/14/20 06:16 Furosemide 20 Mg Tab PO 20 mg DAILY@0600 REANNA Administration Gabapentin 300 mg 08/10/20 00:45 08/14/20 21:44 Gabapentin 300 Mg Cap PO 300 mg Q8HR REANNA Administration Guaifenesin 200 mg 08/11/20 17:44 08/12/20 19:37 Guaifenesin 100 Mg/5 Ml Oral Liqd PO 200 mg Q6H PRN Administration Cough Heparin Sodium (Porcine) 5,000 unit 08/15/20 02:45 08/15/20 03:47 Heparin 5,000 Unit/1 Ml Vial SUB-Q 5,000 unit Q12HR REANNA Administration Hydromorphone HCl 0.5 mg 08/10/20 00:09 Hydromorphone 1 Mg/1 Ml Inj IV Q3H PRN Pain , Severe (7-10) REMDESIVIR 100 mg/ Sodium 250 mls @ 500 mls/hr 08/12/20 21:00 08/14/20 21:44 Chloride IV 08/15/20 21:29 500 mls/hr Q24HR@2100 REANNA Administration Amiodarone HCl 900 mg/ 500 mls @ 33.333 mls/hr 08/15/20 07:00 Dextrose IV DIRECT REANNA Protocol 1 MG/MIN Lisinopril 20 mg 08/10/20 10:00 08/14/20 09:36 Lisinopril 20 Mg Tab PO 20 mg QDAY REANNA Administration Lorazepam 0.5 mg 08/10/20 10:41 08/15/20 02:09 Lorazepam 0.5 Mg Tab PO 0.5 mg Q8H PRN Administration Agitation Metformin HCl 500 mg 08/10/20 08:00 08/14/20 09:36 Metformin 500 Mg Tab PO 500 mg QDDIAB REANNA Administration Methylprednisolone Sodium Succinate 40 mg 08/12/20 10:00 08/14/20 21:44 Methylprednisolone Sod Succinate 40 Mg/1 Ml Inj IV 40 mg Q12HR REANNA Administration Montelukast Sodium 10 mg 08/10/20 00:45 08/14/20 21:44 Montelukast 10 Mg Tab PO 10 mg QHS REANNA Administration Nitroglycerin 0.4 mg 08/09/20 17:11 Nitroglycerin 0.4 Mg Tab Subl SL .Q5MIN PRN Chest Pain Ondansetron HCl 4 mg 08/10/20 00:09 Ondansetron 4 Mg/2 Ml Inj IV Q8H PRN Nausea And Vomiting Oxycodone/Acetaminophen 1 tab 08/10/20 00:09 08/10/20 03:00 Oxycodone /Acetaminophen 5-325mg Tab PO 1 tab Q6H PRN Administration Pain, Moderate (4-6) Pantoprazole Sodium 40 mg 08/10/20 10:00 08/14/20 09:36 Pantoprazole 40 Mg Tab PO 40 mg QDAY REANNA Administration Sodium Chloride 10 ml 08/10/20 10:00 08/14/20 21:44 Sodium Chloride 0.9% 10 Ml Flush Syringe IV 10 ml BID REANNA Administration Sodium Chloride 10 ml 08/10/20 00:09 08/10/20 01:08 Sodium Chloride 0.9% 10 Ml Flush Syringe IV 10 ml PRN PRN Administration LINE FLUSH Sodium Chloride 50 ml 08/11/20 16:00 08/14/20 22:15 Sodium Chloride 0.9% 50 Ml Ivpb IV 08/15/20 21:01 50 ml Q24HR@2100 REANNA Administration
[2020-08-15] MEDS: metFORMIN 500 MG TAB PO SCH (08:36)
[2020-08-15] MEDS: FUROSEMIDE 20 MG TAB PO SCH (08:36)
[2020-08-15] MEDS: GABAPENTIN 300 MG CAP PO SCH ×3 (08:36→21:47)
[2020-08-15] MEDS: PANTOPRAZOLE 40 MG TAB PO SCH (09:41)
[2020-08-15] MEDS: LISINOPRIL 20 MG TAB PO SCH (09:41)
[2020-08-15] MEDS: methylPREDNISolone Sod Succinate 40 MG/1 ML INJ IV SCH ×2 (09:41→21:48)
[2020-08-15] MEDS: FLUTICASONE PROPIONATE NASAL SPRAY 16 GM NS SCH (09:45)
[2020-08-15] MEDS: ASPIRIN 81 MG TAB CHEW PO SCH (09:45)
--- NOTE | 2020-08-15 12:55 | Progress Note ---
Assessment and Plan Assessment and Plan Imp: 1. Covid-19 +/- viral pneumonia 2. Asthma exac. 3. Obesity 4. Acute respiratory failure, hypoxia 5. New onset A fib w/ RVR Rec: 1. Cont. steroids, Remdesivir 2. BIPAP prn; had outpatient PSG with Dr. Yancey and needs to f/u with him DEEPAK re: results 3. On RA when I saw her with clear exam; last documented O2 sat by RT was 98% on 2L; okay with d/c planning pulm-champagne 4. Patient followed by Dr. Yancey as outpatient; if she remains an inpatient, and if Dr. Yancey is still rounding on Covid-19 patients here, then please transfer care to his service in AM 5. Cardiology consult, pt has seen [facility]. P Subjective Date of service: 08/15/20 Principal diagnosis: Acute hypoxic respiratory failure Interval history: Developed Afib w/ RVR. Rxed with amiodarone Objective Vital Signs - 12hr 08/15/20 08/15/20 08/15/20 00:55 01:52 03:47 Temperature 97.6 F Pulse Rate 75 131 H 82 Pulse Rate [ Anterior Bilateral Throughout] Respiratory 25 H 18 20 Rate Respiratory Rate [Anterior Bilateral Throughout] Blood Pressure 114/74 115/72 Blood Pressure [Left] O2 Sat by Pulse 98 98 99 Oximetry 08/15/20 08/15/20 08/15/20 03:50 04:57 05:01 Temperature Pulse Rate 130 H 68 54 L Pulse Rate [ Anterior Bilateral Throughout] Respiratory 18 Rate Respiratory Rate [Anterior Bilateral Throughout] Blood Pressure 93/57 98/66 Blood Pressure [Left] O2 Sat by Pulse 99 98 Oximetry 08/15/20 08/15/20 08/15/20 05:03 05:57 06:00 Temperature Pulse Rate 130 H 82 150 H Pulse Rate [ Anterior Bilateral Throughout] Respiratory 18 Rate Respiratory Rate [Anterior Bilateral Throughout] Blood Pressure 93/60 Blood Pressure 103/74 [Left] O2 Sat by Pulse 99 Oximetry 08/15/20 08/15/20 08/15/20 06:15 06:34 06:43 Temperature Pulse Rate 140 H 113 H 81 Pulse Rate [ Anterior Bilateral Throughout] Respiratory 18 18 18 Rate Respiratory Rate [Anterior Bilateral Throughout] Blood Pressure 100/74 111/75 127/82 Blood Pressure [Left] O2 Sat by Pulse 99 100 99 Oximetry 08/15/20 08/15/20 08/15/20 08:23 09:41 12:13 Temperature Pulse Rate Pulse Rate [ 78 75 Anterior Bilateral Throughout] Respiratory Rate Respiratory 18 18 Rate [Anterior Bilateral Throughout] Blood Pressure 112/65 Blood Pressure [Left] O2 Sat by Pulse 96 Oximetry Constitutional: no acute distress, alert Eyes: non-icteric Neck: supple Effort: normal Ascultation: Bilateral: clear Cardiovascular: regular rate and rhythm (no mrg) Gastrointestinal: normoactive bowel sounds, soft, non-tender Integumentary: normal Extremities: no cyanosis, no edema, pink and warm Neurologic: normal mental status, non-focal exam, pupils equal and round, CN II- XII normal Psychiatric: mood appropriate, affect normal CBC and BMP: 08/12/20 07:31 08/14/20 07:35 ABG, PT/INR, D-dimer: ABG ABG pH 7.404 pH Units (7.350-7.450) 08/09/20 18:09 ABG pCO2 41.0 mm Hg 08/09/20 18:09 ABG pO2 258.0 mm Hg (80.0-90.0) H 08/09/20 18:09 ABG O2 Saturation 99.4 % (95.0-99.0) H 08/09/20 18:09 PT/INR, D-dimer PT 16.8 Sec. (12.2-14.9) H 08/09/20 17:22 INR 1.38 (0.87-1.13) H 08/09/20 17:22 D-Dimer 185.58 ng/mlDDU (0-234) 08/15/20 09:06 Abnormal lab findings: Abnormal Labs 08/09/20 08/09/20 08/09/20 10:05 17:22 17:22 WBC Lymph % (Auto) Lymph # (Auto) Seg Neutrophils % Seg Neuts % (Manual) Lymphocytes % (Manual) 4.0 L Seg Neutrophils # Seg Neutrophils # Man Lymphocytes # (Manual) 0.3 L PT 16.8 H INR 1.38 H D-Dimer 243.07 H ABG pO2 ABG O2 Saturation Sodium BUN Glucose POC Glucose Hemoglobin A1c Magnesium Lactate Dehydrogenase Total Creatine Kinase C-Reactive Protein Total Protein Albumin Coronavirus (PCR) Positive A 08/09/20 08/09/20 08/09/20 17:22 17:22 17:22 WBC Lymph % (Auto) Lymph # (Auto) Seg Neutrophils % Seg Neuts % (Manual) Lymphocytes % (Manual) Seg Neutrophils # Seg Neutrophils # Man Lymphocytes # (Manual) PT INR D-Dimer 243.07 H ABG pO2 ABG O2 Saturation Sodium BUN Glucose 228 H 233 H POC Glucose Hemoglobin A1c Magnesium 2.70 H Lactate Dehydrogenase 269 H 248 H Total Creatine Kinase 271 H C-Reactive Protein 2.00 H 2.10 H Total Protein Albumin Coronavirus (PCR) 08/09/20 08/09/20 08/10/20 18:09 23:22 00:10 WBC Lymph % (Auto) Lymph # (Auto) Seg Neutrophils % Seg Neuts % (Manual) Lymphocytes % (Manual) Seg Neutrophils # Seg Neutrophils # Man Lymphocytes # (Manual) PT INR D-Dimer ABG pO2 258.0 H ABG O2 Saturation 99.4 H Sodium BUN Glucose POC Glucose 174 H Hemoglobin A1c 6.1 H Magnesium Lactate Dehydrogenase Total Creatine Kinase C-Reactive Protein Total Protein Albumin Coronavirus (PCR) 08/10/20 08/10/20 08/10/20 07:24 12:11 17:09 WBC Lymph % (Auto) Lymph # (Auto) Seg Neutrophils % Seg Neuts % (Manual) Lymphocytes % (Manual) Seg Neutrophils # Seg Neutrophils # Man Lymphocytes # (Manual) PT INR D-Dimer ABG pO2 ABG O2 Saturation Sodium BUN Glucose POC Glucose 142 H 141 H 184 H Hemoglobin A1c Magnesium Lactate Dehydrogenase Total Creatine Kinase C-Reactive Protein Total Protein Albumin Coronavirus (PCR) 08/11/20 08/11/20 08/11/20 09:24 09:24 12:11 WBC 14.4 H Lymph % (Auto) Lymph # (Auto) Seg Neutrophils % Seg Neuts % (Manual) 94.0 H Lymphocytes % (Manual) 6.0 L Seg Neutrophils # Seg Neutrophils # Man 13.5 H Lymphocytes # (Manual) 0.9 L PT INR D-Dimer ABG pO2 ABG O2 Saturation Sodium 134 L BUN 28 H Glucose 162 H POC Glucose 155 H Hemoglobin A1c Magnesium Lactate Dehydrogenase Total Creatine Kinase C-Reactive Protein Total Protein Albumin Coronavirus (PCR) 08/11/20 08/11/20 08/11/20 14:24 16:08 21:28 WBC Lymph % (Auto) Lymph # (Auto) Seg Neutrophils % Seg Neuts % (Manual) Lymphocytes % (Manual) Seg Neutrophils # Seg Neutrophils # Man Lymphocytes # (Manual) PT INR D-Dimer ABG pO2 ABG O2 Saturation Sodium BUN 28 H Glucose 129 H POC Glucose 145 H 281 H Hemoglobin A1c Magnesium Lactate Dehydrogenase Total Creatine Kinase C-Reactive Protein Total Protein Albumin Coronavirus (PCR) 08/12/20 08/12/20 08/12/20 07:31 07:31 08:56 WBC 12.1 H Lymph % (Auto) 8.0 L Lymph # (Auto) 1.0 L Seg Neutrophils % 88.0 H Seg Neuts % (Manual) Lymphocytes % (Manual) Seg Neutrophils # 10.7 H Seg Neutrophils # Man Lymphocytes # (Manual) PT INR D-Dimer ABG pO2 ABG O2 Saturation Sodium BUN 26 H Glucose 142 H POC Glucose 136 H Hemoglobin A1c Magnesium Lactate Dehydrogenase Total Creatine Kinase C-Reactive Protein Total Protein Albumin 3.7 L Coronavirus (PCR) 08/12/20 08/12/20 08/13/20 18:32 20:12 07:56 WBC Lymph % (Auto) Lymph # (Auto) Seg Neutrophils % Seg Neuts % (Manual) Lymphocytes % (Manual) Seg Neutrophils # Seg Neutrophils # Man Lymphocytes # (Manual) PT INR D-Dimer ABG pO2 ABG O2 Saturation Sodium BUN 27 H Glucose 133 H POC Glucose 158 H 174 H Hemoglobin A1c Magnesium Lactate Dehydrogenase Total Creatine Kinase C-Reactive Protein Total Protein 5.7 L Albumin 3.4 L Coronavirus (PCR) 08/13/20 08/13/20 08/13/20 08:13 12:21 16:52 WBC Lymph % (Auto) Lymph # (Auto) Seg Neutrophils % Seg Neuts % (Manual) Lymphocytes % (Manual) Seg Neutrophils # Seg Neutrophils # Man Lymphocytes # (Manual) PT INR D-Dimer ABG pO2 ABG O2 Saturation Sodium BUN Glucose POC Glucose 134 H 112 H 189 H Hemoglobin A1c Magnesium Lactate Dehydrogenase Total Creatine Kinase C-Reactive Protein Total Protein Albumin Coronavirus (PCR) 08/13/20 08/14/20 08/14/20 21:28 07:35 10:57 WBC Lymph % (Auto) Lymph # (Auto) Seg Neutrophils % Seg Neuts % (Manual) Lymphocytes % (Manual) Seg Neutrophils # Seg Neutrophils # Man Lymphocytes # (Manual) PT INR D-Dimer ABG pO2 ABG O2 Saturation Sodium 135 L BUN 22 H Glucose 112 H POC Glucose 187 H 136 H Hemoglobin A1c Magnesium Lactate Dehydrogenase Total Creatine Kinase C-Reactive Protein Total Protein 6.0 L Albumin 3.6 L Coronavirus (PCR) 08/14/20 08/15/20 08/15/20 15:55 06:19 07:49 WBC Lymph % (Auto) Lymph # (Auto) Seg Neutrophils % Seg Neuts % (Manual) Lymphocytes % (Manual) Seg Neutrophils # Seg Neutrophils # Man Lymphocytes # (Manual) PT INR D-Dimer ABG pO2 ABG O2 Saturation Sodium BUN Glucose POC Glucose 147 H 152 H 116 H Hemoglobin A1c Magnesium Lactate Dehydrogenase Total Creatine Kinase C-Reactive Protein Total Protein Albumin Coronavirus (PCR) 08/15/20 11:46 WBC Lymph % (Auto) Lymph # (Auto) Seg Neutrophils % Seg Neuts % (Manual) Lymphocytes % (Manual) Seg Neutrophils # Seg Neutrophils # Man Lymphocytes # (Manual) PT INR D-Dimer ABG pO2 ABG O2 Saturation Sodium BUN Glucose POC Glucose 118 H Hemoglobin A1c Magnesium Lactate Dehydrogenase Total Creatine Kinase C-Reactive Protein Total Protein Albumin Coronavirus (PCR)
--- NOTE | 2020-08-15 15:51 | Consultation ---
History of Present Illness Consult date: 08/15/20 History of present illness: 54F with PMHx of asthma/COPD, TALAT on CPAP, reported systolic and diastolic HF, HTN, and DM who presented with dyspnea. She is COVID-19 positive; thus, she was not seen in person to preserve PPE and limit spread of infection. She was additionally noted to have new diagnosis of AF. Per the GYROSCOPIC INSTRUMENT MECHANIC, patient converted to SR with IV amiodarone bolus, and no infusion was started. She is requiring BiPAP for respiratory failure. Past History Past Medical History: other (Asthma, HTN) Social history: full code. denies: smoking, alcohol abuse, prescription drug abuse, IV drug use Family history: no significant family history (no pulm issues reported) Medications and Allergies Allergies Allergy/AdvReac Type Severity Reaction Status Date / Time amoxicillin Allergy Anaphylaxis Verified 03/29/19 00:50 Penicillins Allergy Rash Verified 07/25/17 08:05 seafood Allergy Severe Anaphylaxis Uncoded 03/16/17 01:08 peanuts Allergy Anaphylaxis Uncoded 09/20/19 12:06 Home Medications Medication Instructions Recorded Confirmed Last Taken Type Aspirin [Aspirin BABY CHEW TAB] 81 mg PO QDAY #30 tab.chew 01/06/20 02/05/20 Unknown Rx Furosemide [Lasix TAB] 20 mg PO DAILY@0600 #30 tablet 01/06/20 02/05/20 Unknown Rx Gabapentin 300 mg PO Q8HR #90 capsule 01/06/20 02/05/20 Unknown Rx Montelukast [Singulair] 10 mg PO QHS #30 tablet 01/06/20 02/05/20 Unknown Rx lisinopriL [Zestril TAB] 20 mg PO QDAY #30 tab 01/06/20 02/05/20 Unknown Rx metFORMIN [Glucophage] 500 mg PO QDAY 02/05/20 02/05/20 Unknown History Pantoprazole [Protonix] 40 mg PO QDAY #30 tablet 03/07/20 Unknown Rx Albuterol Mdi (or & Nicu Only) 2 puff IH QID PRN #1 inhalation 03/08/20 Unknown Rx [ProAir HFA Inhaler] Fluticasone [Flonase] 1 spray NS QDAY #1 bottle 05/07/20 Unknown Rx Ipratropium/Albuterol Sulfate 1 ampul IH Q6HR #1 box 05/07/20 Unknown Rx [DUONEB *Not for PRN Use*] predniSONE [Deltasone] 20 mg PO DAILY #5 tablet 05/07/20 Unknown Rx Albuterol Sulfate [Proventil Hfa] 2 puff IH Q4HR PRN #1 hfa.aer.ad 05/18/20 Unknown Rx predniSONE [Deltasone] 50 mg PO QDAY #5 tab 05/18/20 Unknown Rx Active Meds: Active Medications Acetaminophen (Acetaminophen 325 Mg Tab) 650 mg PO Q4H PRN PRN Reason: Pain MILD(1-3)/Fever >100.5/ANTONIO Albuterol (Albuterol 2.5 Mg/3 Ml Nebu) 2.5 mg IH Q3HRT PRN PRN Reason: Wheezing/ SOB Albuterol/Ipratropium (Ipratropium/Albuterol Sulfate 3 Ml Ampul.Neb) 1 ampul IH QIDRT [facility] Last Admin: 08/15/20 12:12 Dose: 1 ampul Documented by: Aspirin (Aspirin 81 Mg Tab Chew) 81 mg PO QDAY [facility] Last Admin: 08/15/20 09:45 Dose: 81 mg Documented by: Fluticasone Propionate (Fluticasone Propionate Nasal [place] 16 Gm) 50 mcg NS QDAY [facility] Last Admin: 08/15/20 09:45 Dose: 50 mcg Documented by: Furosemide (Furosemide 20 Mg Tab) 20 mg PO DAILY@0600 [facility] Last Admin: 08/15/20 08:36 Dose: 20 mg Documented by: Gabapentin (Gabapentin 300 Mg Cap) 300 mg PO Q8HR [facility] Last Admin: 08/15/20 08:36 Dose: 300 mg Documented by: Guaifenesin (Guaifenesin 100 Mg/5 Ml Oral Liqd) 200 mg PO Q6H PRN PRN Reason: Cough Last Admin: 08/12/20 19:37 Dose: 200 mg Documented by: Heparin Sodium (Porcine) (Heparin 5,000 Unit/1 Ml Vial) 5,000 unit SUB-Q Q12HR [facility] Last Admin: 08/15/20 09:48 Dose: 5,000 unit Documented by: Hydromorphone HCl (Hydromorphone 1 Mg/1 Ml Inj) 0.5 mg IV Q3H PRN PRN Reason: Pain , Severe (7-10) REMDESIVIR 100 mg/ Sodium (Chloride) 250 mls @ 500 mls/hr IV Q24HR@2100 [facility] Stop: 08/15/20 21:29 Last Admin: 08/14/20 21:44 Dose: 500 mls/hr Documented by: Amiodarone HCl 900 mg/ (Dextrose) 500 mls @ 33.333 mls/hr IV DIRECT REANNA; Protocol Lisinopril (Lisinopril 20 Mg Tab) 20 mg PO QDAY [facility] Last Admin: 08/15/20 09:41 Dose: 20 mg Documented by: Lorazepam (Lorazepam 0.5 Mg Tab) 0.5 mg PO Q8H PRN PRN Reason: Agitation Last Admin: 08/15/20 02:09 Dose: 0.5 mg Documented by: Metformin HCl (Metformin 500 Mg Tab) 500 mg PO QDDIAB [facility] Last Admin: 08/15/20 08:36 Dose: 500 mg Documented by: Methylprednisolone Sodium Succinate (Methylprednisolone Sod Succinate 40 Mg/1 Ml Inj) 40 mg IV Q12HR [facility] Last Admin: 08/15/20 09:41 Dose: 40 mg Documented by: Montelukast Sodium (Montelukast 10 Mg Tab) 10 mg PO QHS [facility] Last Admin: 08/14/20 21:44 Dose: 10 mg Documented by: Nitroglycerin (Nitroglycerin 0.4 Mg Tab Subl) 0.4 mg SL .Q5MIN PRN PRN Reason: Chest Pain Ondansetron HCl (Ondansetron 4 Mg/2 Ml Inj) 4 mg IV Q8H PRN PRN Reason: Nausea And Vomiting Oxycodone/Acetaminophen (Oxycodone /Acetaminophen 5-325mg Tab) 1 tab PO Q6H PRN PRN Reason: Pain, Moderate (4-6) Last Admin: 08/10/20 03:00 Dose: 1 tab Documented by: Pantoprazole Sodium (Pantoprazole 40 Mg Tab) 40 mg PO QDAY [facility] Last Admin: 08/15/20 09:41 Dose: 40 mg Documented by: Sodium Chloride (Sodium Chloride 0.9% 10 Ml Flush Syringe) 10 ml IV BID [facility] Last Admin: 08/15/20 09:42 Dose: 10 ml Documented by: Sodium Chloride (Sodium Chloride 0.9% 10 Ml Flush Syringe) 10 ml IV PRN PRN PRN Reason: LINE FLUSH Last Admin: 08/10/20 01:08 Dose: 10 ml Documented by: Sodium Chloride (Sodium Chloride 0.9% 50 Ml Ivpb) 50 ml IV Q24HR@2100 RE[facility] Stop: 08/15/20 21:01 Last Admin: 08/14/20 22:15 Dose: 50 ml Documented by: Physical Examination Vital Signs Pulse Ox 100 08/09/20 16:45 Exam deferred. Results 08/12/20 07:31 08/14/20 07:35 Tele - reviewed, currently SR, previously uncontrolled AF 08/10/20 EKG - sinus rhythm Assessment and Plan #Paroxysmal AF, new diagnosis #COVID-19 pneumonia #Asthma/COPD #Reported hx of systolic and diastolic HF #DM #HTN -Patient converted to SR with IV amiodarone bolus. TSH normal. -Await echo. -BP intermittently low; thus, will hold off on starting BB/CCB for now. -[id number] is at least 3. Will start eliquis 5mg PO BID. Patient confirms no significant bleeding history or recent falls. -Continue supportive care for COVID-19, asthma/COPD, and respiratory failure.
[2020-08-15 19:04] LABS: Hematocrit 35.5 % (30.3-42.9); Hemoglobin 12.1 gm/dl (10.1-14.3); Mean Corpuscular HGB Conc 34 % (30-34); Mean Corpuscular Volume 88 fl (79-97); Platelet Count 293 K/mm3 (140-440); Red Blood Count 4.02 M/mm3 (3.65-5.03); Red Cell Distribution Width 14.2 % (13.2-15.2)
[2020-08-15 19:18] LABS: INR 1.54 (0.87-1.13); Partial Thromboplastin Time 27.6 Sec. (24.2-36.6)
[2020-08-15] MEDS: REMDESIVIR 100 MG in SODIUM CHLORIDE 0.9% 250ML 250 ML IV SCH (21:36)
[2020-08-15] MEDS: SODIUM CHLORIDE 0.9% 50 ML IVPB IV SCH (21:46)
[2020-08-15] MEDS: APIXABAN 5 MG TAB PO SCH (21:47)
[2020-08-15] MEDS: MONTELUKAST 10 MG TAB PO SCH (21:47)
[2020-08-15] MEDS ORDERED: SODIUM CHLORIDE 0.9% 50 ML IV ONE (22:00)
[2020-08-16] MEDS: GABAPENTIN 300 MG CAP PO SCH ×3 (05:57→21:39)
[2020-08-16] MEDS: FUROSEMIDE 20 MG TAB PO SCH (05:57)
[2020-08-16 06:05] LABS: BUN/Creatinine Ratio 31; Blood Urea Nitrogen 28 mg/dL (7-17); Calcium 8.7 mg/dL (8.4-10.2); Hemolysis Index 10
[2020-08-16 06:32] LABS: Hematocrit 34.4 % (30.3-42.9); Hemoglobin 11.8 gm/dl (10.1-14.3); Mean Corpuscular HGB Conc 34 % (30-34); Mean Corpuscular Volume 89 fl (79-97); Platelet Count 277 K/mm3 (140-440); Red Blood Count 3.89 M/mm3 (3.65-5.03); Red Cell Distribution Width 14.6 % (13.2-15.2)
[2020-08-16 06:37] LABS: Basophils % (Auto) 0.1 % (0.0-1.8); Lymphocytes # (Auto) 1.6 K/mm3 (1.2-5.4); Lymphocytes % (Auto) 14.1 % (13.4-35.0); Monocytes # (Auto) 0.4 K/mm3 (0.0-0.8); Monocytes % (Auto) 3.8 % (0.0-7.3)
[2020-08-16] MEDS: IPRATROPIUM/ALBUTEROL SULFATE 3 ML AMPUL.NEB IH SCH ×4 (08:43→21:48)
--- NOTE | 2020-08-16 09:23 | Progress Note ---
Assessment and Plan Assessment and plan: Acute respiratory failure with hypoxia Etiology secondary to COVID-19 pneumonia. Asthma exacerbation A. 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 Exercise pulse oximetry testing today. Remdesivir initiated by infectious disease. Antibiotic discontinued given low procalcitonin. Wean steroids today and follow-up oxygenation 08/13/2020. Patient with significant hypoxemia requiring BiPAP 16/8 with FiO2 40%. Patient currently on remdesivir and steroids. We will consult pulmonology for further evaluation. ID following. 08/14/2020. Patient with hypoxia that is improved. Exercise pulse oximetry testing today. Await completion of remdesivir given risk factor of asthma and BIPAP at night 08/15/2020. Patient with episode of A. fib with RVR last evening and a couple episodes this morning. Patient with no history of atrial fibrillation. Cardiology consulted for new onset A. fib. Check echocardiogram. Check cardiac isoenzymes, D-dimer and TSH. Patient will be transferred to the [facility] and placed on amiodarone drip. Continue BiPAP as clinically indicated for respiratory failure/asthma exacerbation. 08/16/2020. Patient converted to sinus rhythm with IV amiodarone bolus. TSH normal. Follow-up echocardiogram. Cardiology started Eliquis 5 mg p.o. twice daily. History Interval history: No new issues overnight. Hospitalist Physical - Constitutional Vitals: Temp Pulse Resp BP Pulse Ox 98.6 F 79 22 107/64 99 08/16/20 04:00 08/16/20 08:00 08/16/20 08:00 08/16/20 06:00 08/16/20 08:44 General appearance: Present: no acute distress, well-nourished - EENT Eyes: Present: PERRL, EOM intact ENT: hearing intact, clear oral mucosa, dentition normal - Neck Neck: Present: supple, normal ROM - Respiratory Respiratory effort: normal Respiratory: bilateral: CTA - Cardiovascular Rhythm: regular Heart Sounds: Present: S1 & S2. Absent: gallop, rub - Extremities Extremities: no ischemia, No edema, Full ROM - Abdominal General gastrointestinal: soft, non-tender, non-distended, normal bowel sounds - Integumentary Integumentary: Present: clear, warm, dry - Neurologic Neurologic: CNII-XII intact, moves all extremities HEART Score - HEART Score EKG: Non-specific Age: 45-65 Risk factors: > 3 risk factors or hx of atherosclerotic disease Troponin: Troponin T < 0.010 ng/mL (0.00-0.029) 08/16/20 05:30 Troponin: < normal limit - Critical Actions Critical Actions: 4-6 pts:12-16.6% risk of adverse cardiac event. Should be admitted Results - Labs CBC & Chem 7: 08/16/20 05:30 08/16/20 05:30 Labs: Laboratory Last Values WBC 11.2 K/mm3 (4.5-11.0) H 08/16/20 05:30 RBC 3.89 M/mm3 (3.65-5.03) 08/16/20 05:30 Hgb 11.8 gm/dl (10.1-14.3) 08/16/20 05:30 Hct 34.4 % (30.3-42.9) 08/16/20 05:30 MCV 89 fl (79-97) 08/16/20 05:30 MCH 30 pg (28-32) 08/16/20 05:30 MCHC 34 % (30-34) 08/16/20 05:30 RDW 14.6 % (13.2-15.2) 08/16/20 05:30 Plt Count 277 K/mm3 (140-440) 08/16/20 05:30 Lymph % (Auto) 14.1 % (13.4-35.0) 08/16/20 05:30 Moore % (Auto) 3.8 % (0.0-7.3) 08/16/20 05:30 Eos % (Auto) 0.0 % (0.0-4.3) 08/16/20 05:30 Baso % (Auto) 0.1 % (0.0-1.8) 08/16/20 05:30 Lymph # (Auto) 1.6 K/mm3 (1.2-5.4) 08/16/20 05:30 Moore # (Auto) 0.4 K/mm3 (0.0-0.8) 08/16/20 05:30 Eos # (Auto) 0.0 K/mm3 (0.0-0.4) 08/16/20 05:30 Baso # (Auto) 0.0 K/mm3 (0.0-0.1) 08/16/20 05:30 Add Manual Diff Complete 08/11/20 09:24 Total Counted 100 08/11/20 09:24 Seg Neutrophils % 82.0 % (40.0-70.0) H 08/16/20 05:30 Seg Neuts % (Manual) 94.0 % (40.0-70.0) H 08/11/20 09:24 Band Neutrophils % 2.0 % 08/09/20 17:22 Lymphocytes % (Manual) 6.0 % (13.4-35.0) L 08/11/20 09:24 Monocytes % (Manual) 1.0 % (0.0-7.3) 08/09/20 17:22 Nucleated RBC % Not Reportable 08/11/20 09:24 Seg Neutrophils # 9.2 K/mm3 (1.8-7.7) H 08/16/20 05:30 Seg Neutrophils # Man 13.5 K/mm3 (1.8-7.7) H 08/11/20 09:24 Band Neutrophils # 0.0 K/mm3 08/11/20 09:24 Lymphocytes # (Manual) 0.9 K/mm3 (1.2-5.4) L 08/11/20 09:24 Abs React Lymphs (Man) 0.0 K/mm3 08/11/20 09:24 Monocytes # (Manual) 0.0 K/mm3 (0.0-0.8) 08/11/20 09:24 Eosinophils # (Manual) 0.0 K/mm3 (0.0-0.4) 08/11/20 09:24 Basophils # (Manual) 0.0 K/mm3 (0.0-0.1) 08/11/20 09:24 Metamyelocytes # 0.0 K/mm3 08/11/20 09:24 Myelocytes # 0.0 K/mm3 08/11/20 09:24 Promyelocytes # 0.0 K/mm3 08/11/20 09:24 Blast Cells # 0.0 K/mm3 08/11/20 09:24 WBC Morphology Not Reportable 08/11/20 09:24 Hypersegmented Neuts Not Reportable 08/11/20 09:24 Hyposegmented Neuts Not Reportable 08/11/20 09:24 Hypogranular Neuts Not Reportable 08/11/20 09:24 Smudge Cells Not Reportable 08/11/20 09:24 Toxic Granulation 1+ 08/11/20 09:24 Toxic Vacuolation Not Reportable 08/11/20 09:24 Dohle Bodies Not Reportable 08/11/20 09:24 Pelger-Huet Anomaly Not Reportable 08/11/20 09:24 Giuseppe Rods Not Reportable 08/11/20 09:24 Platelet Estimate Consistent w auto 08/11/20 09:24 Clumped Platelets Not Reportable 08/11/20 09:24 Plt Clumps, EDTA Not Reportable 08/11/20 09:24 Large Platelets Not Reportable 08/11/20 09:24 Giant Platelets Not Reportable 08/11/20 09:24 Platelet Satelliting Not Reportable 08/11/20 09:24 Plt Morphology Comment Not Reportable 08/11/20 09:24 RBC Morphology Not Reportable 08/11/20 09:24 Dimorphic RBCs Not Reportable 08/11/20 09:24 Polychromasia Not Reportable 08/11/20 09:24 Hypochromasia Not Reportable 08/11/20 09:24 Poikilocytosis 2+ 08/11/20 09:24 Anisocytosis Not Reportable 08/11/20 09:24 Microcytosis Not Reportable 08/11/20 09:24 Macrocytosis Not Reportable 08/11/20 09:24 Spherocytes Not Reportable 08/11/20 09:24 Pappenheimer Bodies Not Reportable 08/11/20 09:24 Sickle Cells Not Reportable 08/11/20 09:24 Target Cells Not Reportable 08/11/20 09:24 Tear Drop Cells Not Reportable 08/11/20 09:24 Ovalocytes 1+ 08/11/20 09:24 Helmet Cells Not Reportable 08/11/20 09:24 Phillips-Yreka Bodies Not Reportable 08/11/20 09:24 [place] Rings Not Reportable 08/11/20 09:24 Arvin Cells 1+ 08/11/20 09:24 Bite Cells Not Reportable 08/11/20 09:24 Crenated Cell Not Reportable 08/11/20 09:24 Elliptocytes Not Reportable 08/11/20 09:24 Acanthocytes (Spur) Not Reportable 08/11/20 09:24 Rouleaux Not Reportable 08/11/20 09:24 Hemoglobin C Crystals Not Reportable 08/11/20 09:24 Schistocytes Not Reportable 08/11/20 09:24 Malaria parasites Not Reportable 08/11/20 09:24 Alfonso Bodies Not Reportable 08/11/20 09:24 Hem Pathologist Commnt No 08/11/20 09:24 PT 18.5 Sec. (12.2-14.9) H 08/15/20 18:36 INR 1.54 (0.87-1.13) H 08/15/20 18:36 APTT 27.6 Sec. (24.2-36.6) 08/15/20 18:36 D-Dimer 185.58 ng/mlDDU (0-234) 08/15/20 09:06 ABG pH 7.404 pH Units (7.350-7.450) 08/09/20 18:09 ABG pCO2 41.0 mm Hg 08/09/20 18:09 ABG pO2 258.0 mm Hg (80.0-90.0) H 08/09/20 18:09 ABG HCO3 25.1 mmol/L (20.0-26.0) 08/09/20 18:09 ABG O2 Saturation 99.4 % (95.0-99.0) H 08/09/20 18:09 ABG O2 Content 17.8 (0.0-44) 08/09/20 18:09 ABG Base Excess 0.3 mmol/L (-2.0-3.0) 08/09/20 18:09 ABG Hemoglobin 12.5 gm/dl (12.0-16.0) 08/09/20 18:09 ABG Carboxyhemoglobin 1.0 % (0.0-5.0) 08/09/20 18:09 ABG Methemoglobin 0.6 % (0.0-1.5) 08/09/20 18:09 Oxyhemoglobin 97.9 % (95.0-99.0) 08/09/20 18:09 FiO2 60 % 08/09/20 18:09 Sodium 135 mmol/L (137-145) L 08/16/20 05:30 Potassium 4.6 mmol/L (3.6-5.0) 08/16/20 05:30 Chloride 99.4 mmol/L (98-107) 08/16/20 05:30 Carbon Dioxide 28 mmol/L (22-30) 08/16/20 05:30 Anion Gap 12 mmol/L 08/16/20 05:30 BUN 28 mg/dL (7-17) H 08/16/20 05:30 Creatinine 0.9 mg/dL (0.6-1.2) 08/16/20 05:30 Estimated GFR > 60 ml/min 08/16/20 05:30 BUN/Creatinine Ratio 31 % 08/16/20 05:30 Glucose 176 mg/dL (65-100) H 08/16/20 05:30 POC Glucose 118 mg/dL (70-105) H 08/15/20 11:46 Hemoglobin A1c 6.1 % (4-6) H 08/10/20 00:10 Lactic Acid 1.90 mmol/L (0.7-2.0) 08/09/20 17:22 Calcium 8.7 mg/dL (8.4-10.2) 08/16/20 05:30 Magnesium 2.70 mg/dL (1.7-2.3) H 08/09/20 17:22 Ferritin 119.9 ng/mL (10.0-200.0) 08/09/20 17:22 Total Bilirubin 0.20 mg/dL (0.1-1.2) 08/14/20 07:35 AST 10 units/L (5-40) 08/14/20 07:35 ALT 12 units/L (7-56) 08/14/20 07:35 Alkaline Phosphatase 55 units/L (35-129) 08/14/20 07:35 Lactate Dehydrogenase 248 units/L (91-180) H 08/09/20 17:22 Lactate Dehydrogenase 269 units/L (91-180) H 08/09/20 17:22 Total Creatine Kinase 271 units/L (30-135) H 08/09/20 17:22 Troponin T < 0.010 ng/mL (0.00-0.029) 08/16/20 05:30 C-Reactive Protein 2.00 mg/dL (0.00-1.30) H 08/09/20 17:22 C-Reactive Protein 2.10 mg/dL (0.00-1.30) H 08/09/20 17:22 NT-Pro-B Natriuret Pep 266.4 pg/mL (0-900) 08/09/20 17:22 Total Protein 6.0 g/dL (6.3-8.2) L 08/14/20 07:35 Albumin 3.6 g/dL (3.9-5) L 08/14/20 07:35 Albumin/Globulin Ratio 1.5 % 08/14/20 07:35 Procalcitonin < 0.05 ng/mL (<0.15) 08/09/20 17:22 TSH 0.422 mlU/mL (0.270-4.200) 08/15/20 09:06 Coronavirus (PCR) Positive (Negative) A 08/09/20 10:05 Calderon/IV: Voiding Method Toilet Active Medications - Current Medications Current Medications: Generic Name Dose Route Start Last Admin Trade Name Freq PRN Reason Stop Dose Admin Acetaminophen 650 mg 08/10/20 00:09 Acetaminophen 325 Mg Tab PO Q4H PRN Pain MILD(1-3)/Fever >100.5/ANTONIO Albuterol 2.5 mg 08/10/20 00:30 Albuterol 2.5 Mg/3 Ml Nebu IH Q3HRT PRN Wheezing/ SOB Albuterol/Ipratropium 1 ampul 08/10/20 08:00 08/16/20 08:43 Ipratropium/Albuterol Sulfate 3 Ml Ampul.Neb IH 1 ampul QIDRT REANNA Administration Apixaban 5 mg 08/15/20 22:00 08/15/20 21:47 Apixaban 5 Mg Tab PO 5 mg Q12HR REANNA Administration Protocol Fluticasone Propionate 50 mcg 08/10/20 10:00 08/15/20 09:45 Fluticasone Propionate Nasal [place] 16 Gm NS 50 mcg QDAY REANNA Administration Furosemide 20 mg 08/10/20 06:00 08/16/20 05:57 Furosemide 20 Mg Tab PO 20 mg DAILY@0600 REANNA Administration Gabapentin 300 mg 08/10/20 00:45 08/16/20 05:57 Gabapentin 300 Mg Cap PO 300 mg Q8HR REANNA Administration Guaifenesin 200 mg 08/11/20 17:44 08/12/20 19:37 Guaifenesin 100 Mg/5 Ml Oral Liqd PO 200 mg Q6H PRN Administration Cough Hydromorphone HCl 0.5 mg 08/10/20 00:09 Hydromorphone 1 Mg/1 Ml Inj IV Q3H PRN Pain , Severe (7-10) Lisinopril 20 mg 08/10/20 10:00 08/15/20 09:41 Lisinopril 20 Mg Tab PO 20 mg QDAY REANNA Administration Lorazepam 0.5 mg 08/10/20 10:41 08/15/20 02:09 Lorazepam 0.5 Mg Tab PO 0.5 mg Q8H PRN Administration Agitation Metformin HCl 500 mg 08/10/20 08:00 08/15/20 08:36 Metformin 500 Mg Tab PO 500 mg QDDIAB REANNA Administration Methylprednisolone Sodium Succinate 40 mg 08/12/20 10:00 08/15/20 21:48 Methylprednisolone Sod Succinate 40 Mg/1 Ml Inj IV 40 mg Q12HR REANNA Administration Montelukast Sodium 10 mg 08/10/20 00:45 08/15/20 21:47 Montelukast 10 Mg Tab PO 10 mg QHS REANNA Administration Nitroglycerin 0.4 mg 08/09/20 17:11 Nitroglycerin 0.4 Mg Tab Subl SL .Q5MIN PRN Chest Pain Ondansetron HCl 4 mg 08/10/20 00:09 Ondansetron 4 Mg/2 Ml Inj IV Q8H PRN Nausea And Vomiting Oxycodone/Acetaminophen 1 tab 08/10/20 00:09 08/10/20 03:00 Oxycodone /Acetaminophen 5-325mg Tab PO 1 tab Q6H PRN Administration Pain, Moderate (4-6) Pantoprazole Sodium 40 mg 08/10/20 10:00 08/15/20 09:41 Pantoprazole 40 Mg Tab PO 40 mg QDAY REANNA Administration Sodium Chloride 10 ml 08/10/20 10:00 08/15/20 21:36 Sodium Chloride 0.9% 10 Ml Flush Syringe IV 10 ml BID REANNA Administration Sodium Chloride 10 ml 08/10/20 00:09 08/10/20 01:08 Sodium Chloride 0.9% 10 Ml Flush Syringe IV 10 ml PRN PRN Administration LINE FLUSH
[2020-08-16] MEDS: APIXABAN 5 MG TAB PO SCH ×2 (11:14→21:39)
[2020-08-16] MEDS: metFORMIN 500 MG TAB PO SCH (11:14)
[2020-08-16] MEDS: PANTOPRAZOLE 40 MG TAB PO SCH (11:15)
[2020-08-16] MEDS: LISINOPRIL 20 MG TAB PO SCH (11:15)
[2020-08-16] MEDS: methylPREDNISolone Sod Succinate 40 MG/1 ML INJ IV SCH ×2 (11:15→21:39)
[2020-08-16] MEDS: FLUTICASONE PROPIONATE NASAL SPRAY 16 GM NS SCH (11:15)
--- NOTE | 2020-08-16 17:39 | Progress Note ---
Assessment and Plan Acute hypoxemic respiratory failure AE-COPD Paroxysmal A-fib with RVR COVID-19 infection CHF (congestive heart failure) Hypertension DM II - continue to wean supplemental oxygen to keep O2 sats > 90% - continue Bronchodilators (IGNACIO & LABA) with pulm hygiene per RT - continue systemic steroids with taper - inhaled corticosteroids - avoid nephrotoxins, renally dose all medications - mobility protocols to prevent pressure ulcers - PT/OT as tolerated - Wound care per RN/WCT - accuchecks with glycemic control per SSI for target blood glucose < 180 mg/dL - tobacco abstinence strongly counseled at the bedside - home oxygen evaluation at discharge - GI & VTE prophylaxis - Flu & pneumovax per protocol - Pulmonary out patient follow up for PFTs and optimization of respiratory status - continue other care per attending / other consultants - prn analgesia per pain score COVID-19 Specific Interventions - Remdesivir as per ID/Pulmonary developed protocols (completed) - systemic steroids for severe COVID-19 infection - follow repeat COVID tests results - zinc and vitamin C supplementation - Monitor inflammatory markers per facility protocol - ferritin, Ddimer, CRP - therapeutic anticoagulation per system Protocol based on d-dimer and clinical considerations - Continue contact and airborne isolation ... re-evaluate in am & prn Subjective Date of service: 08/16/20 Principal diagnosis: Ac hypoxemic resp failure; AE-COPD; PAF; COVID-19 infection; CHF; DM II Interval history: Patient is seen today for: Acute hypoxemic respiratory failure; AE-COPD; PAF; COVID-19 infection; CHF; DM II Seen and examined at bedside; 24hour events reviewed; nursing and respiratory care staff consulted; no adverse overnight events reported to me; restimng pe acefully in bed; feels better overall; denies chest pains or palpitations; seen by cardiology re: A-fib with RVR; denies hemoptysis Objective Vital Signs - 12hr 08/16/20 08/16/20 08/16/20 06:00 07:00 08:00 Temperature 98.3 F Pulse Rate 71 63 66 Pulse Rate [ 61 From Monitor] Pulse Rate [ 79 Posterior Bilateral Throughout] Respiratory 14 15 16 Rate Respiratory 22 Rate [Posterior Bilateral Throughout] Blood Pressure 107/64 104/61 104/69 O2 Sat by Pulse 96 97 Oximetry 08/16/20 08/16/20 08/16/20 08:44 09:00 10:00 Temperature Pulse Rate 78 82 Pulse Rate [ From Monitor] Pulse Rate [ Posterior Bilateral Throughout] Respiratory 15 18 Rate Respiratory Rate [Posterior Bilateral Throughout] Blood Pressure 109/68 106/57 O2 Sat by Pulse 99 100 99 Oximetry 08/16/20 08/16/20 08/16/20 11:00 12:00 13:35 Temperature 98.1 F 98.6 F Pulse Rate 77 80 97 H Pulse Rate [ 61 From Monitor] Pulse Rate [ 82 Posterior Bilateral Throughout] Respiratory 17 17 19 Rate Respiratory 20 Rate [Posterior Bilateral Throughout] Blood Pressure 99/63 114/71 108/63 O2 Sat by Pulse 96 100 Oximetry 08/16/20 16:00 Temperature Pulse Rate Pulse Rate [ 79 From Monitor] Pulse Rate [ Posterior Bilateral Throughout] Respiratory Rate Respiratory Rate [Posterior Bilateral Throughout] Blood Pressure O2 Sat by Pulse Oximetry Constitutional: no acute distress, other (middle aged obese female with mildy increased respiratory effort at rest) Eyes: non-icteric ENT: oropharynx moist Neck: supple, no lymphadenopathy, no JVD Effort: mildly labored Ascultation: Bilateral: diminished breath sounds, wheezes (faint; R>L posteriorly) Percussion: Bilateral: not dull Cardiovascular: regular rate and rhythm (no mrg) Gastrointestinal: normoactive bowel sounds, soft, non-tender Integumentary: normal Extremities: no cyanosis, no edema, pulses normal, no ischemia or petechiae Neurologic: normal mental status, non-focal exam, pupils equal and round, motor strength normal and Psychiatric: mood appropriate, affect normal CBC and BMP: 08/16/20 05:30 08/16/20 05:30 ABG, PT/INR, D-dimer: ABG ABG pH 7.404 pH Units (7.350-7.450) 08/09/20 18:09 ABG pCO2 41.0 mm Hg 08/09/20 18:09 ABG pO2 258.0 mm Hg (80.0-90.0) H 08/09/20 18:09 ABG O2 Saturation 99.4 % (95.0-99.0) H 08/09/20 18:09 PT/INR, D-dimer PT 18.5 Sec. (12.2-14.9) H 08/15/20 18:36 INR 1.54 (0.87-1.13) H 08/15/20 18:36 D-Dimer 185.58 ng/mlDDU (0-234) 08/15/20 09:06 Abnormal lab findings: Abnormal Labs 08/09/20 08/09/20 08/09/20 10:05 17:22 17:22 WBC Lymph % (Auto) Lymph # (Auto) Seg Neutrophils % Seg Neuts % (Manual) Lymphocytes % (Manual) 4.0 L Seg Neutrophils # Seg Neutrophils # Man Lymphocytes # (Manual) 0.3 L PT 16.8 H INR 1.38 H D-Dimer 243.07 H ABG pO2 ABG O2 Saturation Sodium BUN Glucose POC Glucose Hemoglobin A1c Magnesium Lactate Dehydrogenase Total Creatine Kinase C-Reactive Protein Total Protein Albumin Coronavirus (PCR) Positive A 08/09/20 08/09/20 08/09/20 17:22 17:22 17:22 WBC Lymph % (Auto) Lymph # (Auto) Seg Neutrophils % Seg Neuts % (Manual) Lymphocytes % (Manual) Seg Neutrophils # Seg Neutrophils # Man Lymphocytes # (Manual) PT INR D-Dimer 243.07 H ABG pO2 ABG O2 Saturation Sodium BUN Glucose 228 H 233 H POC Glucose Hemoglobin A1c Magnesium 2.70 H Lactate Dehydrogenase 269 H 248 H Total Creatine Kinase 271 H C-Reactive Protein 2.00 H 2.10 H Total Protein Albumin Coronavirus (PCR) 08/09/20 08/09/20 08/10/20 18:09 23:22 00:10 WBC Lymph % (Auto) Lymph # (Auto) Seg Neutrophils % Seg Neuts % (Manual) Lymphocytes % (Manual) Seg Neutrophils # Seg Neutrophils # Man Lymphocytes # (Manual) PT INR D-Dimer ABG pO2 258.0 H ABG O2 Saturation 99.4 H Sodium BUN Glucose POC Glucose 174 H Hemoglobin A1c 6.1 H Magnesium Lactate Dehydrogenase Total Creatine Kinase C-Reactive Protein Total Protein Albumin Coronavirus (PCR) 08/10/20 08/10/20 08/10/20 07:24 12:11 17:09 WBC Lymph % (Auto) Lymph # (Auto) Seg Neutrophils % Seg Neuts % (Manual) Lymphocytes % (Manual) Seg Neutrophils # Seg Neutrophils # Man Lymphocytes # (Manual) PT INR D-Dimer ABG pO2 ABG O2 Saturation Sodium BUN Glucose POC Glucose 142 H 141 H 184 H Hemoglobin A1c Magnesium Lactate Dehydrogenase Total Creatine Kinase C-Reactive Protein Total Protein Albumin Coronavirus (PCR) 08/11/20 08/11/20 08/11/20 09:24 09:24 12:11 WBC 14.4 H Lymph % (Auto) Lymph # (Auto) Seg Neutrophils % Seg Neuts % (Manual) 94.0 H Lymphocytes % (Manual) 6.0 L Seg Neutrophils # Seg Neutrophils # Man 13.5 H Lymphocytes # (Manual) 0.9 L PT INR D-Dimer ABG pO2 ABG O2 Saturation Sodium 134 L BUN 28 H Glucose 162 H POC Glucose 155 H Hemoglobin A1c Magnesium Lactate Dehydrogenase Total Creatine Kinase C-Reactive Protein Total Protein Albumin Coronavirus (PCR) 08/11/20 08/11/20 08/11/20 14:24 16:08 21:28 WBC Lymph % (Auto) Lymph # (Auto) Seg Neutrophils % Seg Neuts % (Manual) Lymphocytes % (Manual) Seg Neutrophils # Seg Neutrophils # Man Lymphocytes # (Manual) PT INR D-Dimer ABG pO2 ABG O2 Saturation Sodium BUN 28 H Glucose 129 H POC Glucose 145 H 281 H Hemoglobin A1c Magnesium Lactate Dehydrogenase Total Creatine Kinase C-Reactive Protein Total Protein Albumin Coronavirus (PCR) 08/12/20 08/12/20 08/12/20 07:31 07:31 08:56 WBC 12.1 H Lymph % (Auto) 8.0 L Lymph # (Auto) 1.0 L Seg Neutrophils % 88.0 H Seg Neuts % (Manual) Lymphocytes % (Manual) Seg Neutrophils # 10.7 H Seg Neutrophils # Man Lymphocytes # (Manual) PT INR D-Dimer ABG pO2 ABG O2 Saturation Sodium BUN 26 H Glucose 142 H POC Glucose 136 H Hemoglobin A1c Magnesium Lactate Dehydrogenase Total Creatine Kinase C-Reactive Protein Total Protein Albumin 3.7 L Coronavirus (PCR) 08/12/20 08/12/20 08/13/20 18:32 20:12 07:56 WBC Lymph % (Auto) Lymph # (Auto) Seg Neutrophils % Seg Neuts % (Manual) Lymphocytes % (Manual) Seg Neutrophils # Seg Neutrophils # Man Lymphocytes # (Manual) PT INR D-Dimer ABG pO2 ABG O2 Saturation Sodium BUN 27 H Glucose 133 H POC Glucose 158 H 174 H Hemoglobin A1c Magnesium Lactate Dehydrogenase Total Creatine Kinase C-Reactive Protein Total Protein 5.7 L Albumin 3.4 L Coronavirus (PCR) 08/13/20 08/13/20 08/13/20 08:13 12:21 16:52 WBC Lymph % (Auto) Lymph # (Auto) Seg Neutrophils % Seg Neuts % (Manual) Lymphocytes % (Manual) Seg Neutrophils # Seg Neutrophils # Man Lymphocytes # (Manual) PT INR D-Dimer ABG pO2 ABG O2 Saturation Sodium BUN Glucose POC Glucose 134 H 112 H 189 H Hemoglobin A1c Magnesium Lactate Dehydrogenase Total Creatine Kinase C-Reactive Protein Total Protein Albumin Coronavirus (PCR) 08/13/20 08/14/20 08/14/20 21:28 07:35 10:57 WBC Lymph % (Auto) Lymph # (Auto) Seg Neutrophils % Seg Neuts % (Manual) Lymphocytes % (Manual) Seg Neutrophils # Seg Neutrophils # Man Lymphocytes # (Manual) PT INR D-Dimer ABG pO2 ABG O2 Saturation Sodium 135 L BUN 22 H Glucose 112 H POC Glucose 187 H 136 H Hemoglobin A1c Magnesium Lactate Dehydrogenase Total Creatine Kinase C-Reactive Protein Total Protein 6.0 L Albumin 3.6 L Coronavirus (PCR) 08/14/20 08/15/20 08/15/20 15:55 06:19 07:49 WBC Lymph % (Auto) Lymph # (Auto) Seg Neutrophils % Seg Neuts % (Manual) Lymphocytes % (Manual) Seg Neutrophils # Seg Neutrophils # Man Lymphocytes # (Manual) PT INR D-Dimer ABG pO2 ABG O2 Saturation Sodium BUN Glucose POC Glucose 147 H 152 H 116 H Hemoglobin A1c Magnesium Lactate Dehydrogenase Total Creatine Kinase C-Reactive Protein Total Protein Albumin Coronavirus (PCR) 08/15/20 08/15/20 08/15/20 11:46 18:36 18:36 WBC 14.4 H Lymph % (Auto) Lymph # (Auto) Seg Neutrophils % Seg Neuts % (Manual) Lymphocytes % (Manual) Seg Neutrophils # Seg Neutrophils # Man Lymphocytes # (Manual) PT 18.5 H INR 1.54 H D-Dimer ABG pO2 ABG O2 Saturation Sodium BUN Glucose POC Glucose 118 H Hemoglobin A1c Magnesium Lactate Dehydrogenase Total Creatine Kinase C-Reactive Protein Total Protein Albumin Coronavirus (PCR) 08/16/20 08/16/20 05:30 05:30 WBC 11.2 H Lymph % (Auto) Lymph # (Auto) Seg Neutrophils % 82.0 H Seg Neuts % (Manual) Lymphocytes % (Manual) Seg Neutrophils # 9.2 H Seg Neutrophils # Man Lymphocytes # (Manual) PT INR D-Dimer ABG pO2 ABG O2 Saturation Sodium 135 L BUN 28 H Glucose 176 H POC Glucose Hemoglobin A1c Magnesium Lactate Dehydrogenase Total Creatine Kinase C-Reactive Protein Total Protein Albumin Coronavirus (PCR) Chest x-ray: other (none today) Allied health notes reviewed: nursing
--- NOTE | 2020-08-16 19:43 | Progress Note ---
Assessment and Plan #Paroxysmal AF, new diagnosis - converted to SR with IV amiodarone bolus #COVID-19 pneumonia #Asthma/COPD #Reported hx of systolic and diastolic HF #DM #HTN -Maintaining SR. -Echo pending. -Will start low dose metoprolol. Stop lisinopril. -[id number] is at least 3. Continue eliquis 5mg PO BID. Patient confirms no significant bleeding history or recent falls. -Continue supportive care for COVID-19, asthma/COPD, and respiratory failure. Subjective Date of service: 08/16/20 Principal diagnosis: Ac hypoxemic resp failure; AE-COPD; PAF; COVID-19 infection; CHF; DM II Interval history: Patient is COVID-19 positive; thus, she was not seen in person to preserve PPE and limit spread of infection. No cardiac events. Maintaining SR on tele. Objective Vital Signs Temp Pulse Pulse Pulse Resp Resp BP 08/16/20 17:54 98.8 F 89 20 104/68 08/16/20 16:00 79 08/16/20 13:35 98.6 F 97 H 19 108/63 08/16/20 12:00 98.1 F 80 61 82 17 20 114/71 08/16/20 11:00 77 17 99/63 08/16/20 10:00 82 18 106/57 08/16/20 09:00 78 15 109/68 08/16/20 08:44 08/16/20 08:00 98.3 F 66 61 79 16 22 104/69 08/16/20 07:00 63 15 104/61 08/16/20 06:00 71 14 107/64 08/16/20 05:00 67 15 104/63 08/16/20 04:09 66 16 96/55 08/16/20 04:00 98.6 F 64 61 16 96/55 08/16/20 03:00 61 16 103/64 08/16/20 02:00 72 17 108/68 08/16/20 01:00 56 L 17 127/71 08/16/20 00:30 66 16 119/75 08/16/20 00:00 98.2 F 61 67 14 119/75 08/15/20 23:00 66 25 H 120/79 08/15/20 22:00 67 18 112/74 08/15/20 21:00 67 12 110/66 05/01/21 20:00 98.6 F 77 72 15 117/66 Pulse Ox 08/16/20 17:54 98 08/16/20 16:00 08/16/20 13:35 100 08/16/20 12:00 96 08/16/20 11:00 08/16/20 10:00 99 08/16/20 09:00 100 08/16/20 08:44 99 08/16/20 08:00 97 08/16/20 07:00 96 08/16/20 06:00 08/16/20 05:00 98 08/16/20 04:09 98 08/16/20 04:00 98 08/16/20 03:00 96 08/16/20 02:00 99 08/16/20 01:00 98 08/16/20 00:30 98 08/16/20 00:00 98 08/15/20 23:00 96 08/15/20 22:00 100 08/15/20 21:00 98 08/15/20 20:00 95 - Physical Examination Narrative exam: Exam deferred. - Labs and Meds CBC 08/16/20 Range/Units 05:30 WBC 11.2 H (4.5-11.0) K/mm3 RBC 3.89 (3.65-5.03) M/mm3 Hgb 11.8 (10.1-14.3) gm/dl Hct 34.4 (30.3-42.9) % Plt Count 277 (140-440) K/mm3 Lymph # (Auto) 1.6 (1.2-5.4) K/mm3 [place] # (Auto) 0.4 (0.0-0.8) K/mm3 Eos # (Auto) 0.0 (0.0-0.4) K/mm3 Baso # (Auto) 0.0 (0.0-0.1) K/mm3 Comprehensive Metabolic Panel 08/16/20 Range/Units 05:30 Sodium 135 L (137-145) mmol/L Potassium 4.6 (3.6-5.0) mmol/L Chloride 99.4 (98-107) mmol/L Carbon Dioxide 28 (22-30) mmol/L BUN 28 H (7-17) mg/dL Creatinine 0.9 (0.6-1.2) mg/dL Glucose 176 H (65-100) mg/dL Calcium 8.7 (8.4-10.2) mg/dL - Allied health notes Allied health notes reviewed: nursing
[2020-08-16] MEDS: MONTELUKAST 10 MG TAB PO SCH (21:38)
[2020-08-16] MEDS: ASCORBIC ACID 500 MG TAB PO SCH (21:39)
[2020-08-16] MEDS: ARFORMOTEROL 15 MCG/2 ML NEBU IH SCH (21:47)
[2020-08-16] MEDS: BUDESONIDE 0.5 MG/2 ML NEBU IH SCH (21:48)
[2020-08-16] MEDS: METOPROLOL TARTRATE 25 MG TAB PO SCH (22:52)
[2020-08-17] MEDS: GABAPENTIN 300 MG CAP PO SCH ×3 (06:11→22:07)
[2020-08-17] MEDS: FUROSEMIDE 20 MG TAB PO SCH (06:11)
--- NOTE | 2020-08-17 07:44 | Progress Note ---
Assessment and Plan Assessment and plan: Acute respiratory failure with hypoxia Etiology secondary to COVID-19 pneumonia. Asthma exacerbation A. 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 Exercise pulse oximetry testing today. Remdesivir initiated by infectious disease. Antibiotic discontinued given low procalcitonin. Wean steroids today and follow-up oxygenation 08/13/2020. Patient with significant hypoxemia requiring BiPAP 16/8 with FiO2 40%. Patient currently on remdesivir and steroids. We will consult pulmonology for further evaluation. ID following. 08/14/2020. Patient with hypoxia that is improved. Exercise pulse oximetry testing today. Await completion of remdesivir given risk factor of asthma and BIPAP at night 08/15/2020. Patient with episode of A. fib with RVR last evening and a couple episodes this morning. Patient with no history of atrial fibrillation. Cardiology consulted for new onset A. fib. Check echocardiogram. Check cardiac isoenzymes, D-dimer and TSH. Patient will be transferred to the [facility] and placed on amiodarone drip. Continue BiPAP as clinically indicated for respiratory failure/asthma exacerbation. 08/16/2020. Patient converted to sinus rhythm with IV amiodarone bolus. TSH normal. Follow-up echocardiogram. Cardiology started Eliquis 5 mg p.o. twice daily. 08/17/20. Still awaiting echocardiogram. Continue metoprolol for rate control. Eliquis for anticoagulation. Continue Solu-Medrol per pulmonary recommendations. Consider changing to dexamethasone. History Interval history: No new issues overnight. Hospitalist Physical - Constitutional Vitals: Temp Pulse Resp BP Pulse Ox 98.0 F 86 18 114/83 97 08/17/20 05:24 08/17/20 05:24 08/17/20 05:24 08/17/20 05:24 08/17/20 05:24 General appearance: Present: no acute distress, well-nourished - EENT Eyes: Present: PERRL, EOM intact ENT: hearing intact, clear oral mucosa, dentition normal - Neck Neck: Present: supple, normal ROM - Respiratory Respiratory effort: normal Respiratory: bilateral: CTA - Cardiovascular Rhythm: regular Heart Sounds: Present: S1 & S2. Absent: gallop, rub - Extremities Extremities: no ischemia, No edema, Full ROM - Abdominal General gastrointestinal: soft, non-tender, non-distended, normal bowel sounds - Integumentary Integumentary: Present: clear, warm, dry - Neurologic Neurologic: CNII-XII intact, moves all extremities HEART Score - HEART Score EKG: Non-specific Age: 45-65 Risk factors: > 3 risk factors or hx of atherosclerotic disease Troponin: Troponin T < 0.010 ng/mL (0.00-0.029) 08/16/20 05:30 Troponin: < normal limit - Critical Actions Critical Actions: 4-6 pts:12-16.6% risk of adverse cardiac event. Should be admitted Results - Labs CBC & Chem 7: 08/16/20 05:30 08/16/20 05:30 Labs: Laboratory Last Values WBC 11.2 K/mm3 (4.5-11.0) H 08/16/20 05:30 RBC 3.89 M/mm3 (3.65-5.03) 08/16/20 05:30 Hgb 11.8 gm/dl (10.1-14.3) 08/16/20 05:30 Hct 34.4 % (30.3-42.9) 08/16/20 05:30 MCV 89 fl (79-97) 08/16/20 05:30 MCH 30 pg (28-32) 08/16/20 05:30 MCHC 34 % (30-34) 08/16/20 05:30 RDW 14.6 % (13.2-15.2) 08/16/20 05:30 Plt Count 277 K/mm3 (140-440) 08/16/20 05:30 Lymph % (Auto) 14.1 % (13.4-35.0) 08/16/20 05:30 [place] % (Auto) 3.8 % (0.0-7.3) 08/16/20 05:30 Eos % (Auto) 0.0 % (0.0-4.3) 08/16/20 05:30 Baso % (Auto) 0.1 % (0.0-1.8) 08/16/20 05:30 Lymph # (Auto) 1.6 K/mm3 (1.2-5.4) 08/16/20 05:30 [place] # (Auto) 0.4 K/mm3 (0.0-0.8) 08/16/20 05:30 Eos # (Auto) 0.0 K/mm3 (0.0-0.4) 08/16/20 05:30 Baso # (Auto) 0.0 K/mm3 (0.0-0.1) 08/16/20 05:30 Add Manual Diff Complete 08/11/20 09:24 Total Counted 100 08/11/20 09:24 Seg Neutrophils % 82.0 % (40.0-70.0) H 08/16/20 05:30 Seg Neuts % (Manual) 94.0 % (40.0-70.0) H 08/11/20 09:24 Band Neutrophils % 2.0 % 08/09/20 17:22 Lymphocytes % (Manual) 6.0 % (13.4-35.0) L 08/11/20 09:24 Monocytes % (Manual) 1.0 % (0.0-7.3) 08/09/20 17:22 Nucleated RBC % Not Reportable 08/11/20 09:24 Seg Neutrophils # 9.2 K/mm3 (1.8-7.7) H 08/16/20 05:30 Seg Neutrophils # Man 13.5 K/mm3 (1.8-7.7) H 08/11/20 09:24 Band Neutrophils # 0.0 K/mm3 08/11/20 09:24 Lymphocytes # (Manual) 0.9 K/mm3 (1.2-5.4) L 08/11/20 09:24 Abs React Lymphs (Man) 0.0 K/mm3 08/11/20 09:24 Monocytes # (Manual) 0.0 K/mm3 (0.0-0.8) 08/11/20 09:24 Eosinophils # (Manual) 0.0 K/mm3 (0.0-0.4) 08/11/20 09:24 Basophils # (Manual) 0.0 K/mm3 (0.0-0.1) 08/11/20 09:24 Metamyelocytes # 0.0 K/mm3 08/11/20 09:24 Myelocytes # 0.0 K/mm3 08/11/20 09:24 Promyelocytes # 0.0 K/mm3 08/11/20 09:24 Blast Cells # 0.0 K/mm3 08/11/20 09:24 WBC Morphology Not Reportable 08/11/20 09:24 Hypersegmented Neuts Not Reportable 08/11/20 09:24 Hyposegmented Neuts Not Reportable 08/11/20 09:24 Hypogranular Neuts Not Reportable 08/11/20 09:24 Smudge Cells Not Reportable 08/11/20 09:24 Toxic Granulation 1+ 08/11/20 09:24 Toxic Vacuolation Not Reportable 08/11/20 09:24 Dohle Bodies Not Reportable 08/11/20 09:24 Pelger-Huet Anomaly Not Reportable 08/11/20 09:24 Giuseppe Rods Not Reportable 08/11/20 09:24 Platelet Estimate Consistent w auto 08/11/20 09:24 Clumped Platelets Not Reportable 08/11/20 09:24 Plt Clumps, EDTA Not Reportable 08/11/20 09:24 Large Platelets Not Reportable 08/11/20 09:24 Giant Platelets Not Reportable 08/11/20 09:24 Platelet Satelliting Not Reportable 08/11/20 09:24 Plt Morphology Comment Not Reportable 08/11/20 09:24 RBC Morphology Not Reportable 08/11/20 09:24 Dimorphic RBCs Not Reportable 08/11/20 09:24 Polychromasia Not Reportable 08/11/20 09:24 Hypochromasia Not Reportable 08/11/20 09:24 Poikilocytosis 2+ 08/11/20 09:24 Anisocytosis Not Reportable 08/11/20 09:24 Microcytosis Not Reportable 08/11/20 09:24 Macrocytosis Not Reportable 08/11/20 09:24 Spherocytes Not Reportable 08/11/20 09:24 Pappenheimer Bodies Not Reportable 08/11/20 09:24 Sickle Cells Not Reportable 08/11/20 09:24 Target Cells Not Reportable 08/11/20 09:24 Tear Drop Cells Not Reportable 08/11/20 09:24 Ovalocytes 1+ 08/11/20 09:24 Helmet Cells Not Reportable 08/11/20 09:24 [place] Bodies Not Reportable 08/11/20 09:24 [place] Rings Not Reportable 08/11/20 09:24 [place] Cells 1+ 08/11/20 09:24 Bite Cells Not Reportable 08/11/20 09:24 Crenated Cell Not Reportable 08/11/20 09:24 Elliptocytes Not Reportable 08/11/20 09:24 Acanthocytes (Spur) Not Reportable 08/11/20 09:24 Rouleaux Not Reportable 08/11/20 09:24 Hemoglobin C Crystals Not Reportable 08/11/20 09:24 Schistocytes Not Reportable 08/11/20 09:24 Malaria parasites Not Reportable 08/11/20 09:24 Alfonso Bodies Not Reportable 08/11/20 09:24 Hem Pathologist Commnt No 08/11/20 09:24 PT 18.5 Sec. (12.2-14.9) H 08/15/20 18:36 INR 1.54 (0.87-1.13) H 08/15/20 18:36 APTT 27.6 Sec. (24.2-36.6) 08/15/20 18:36 D-Dimer 185.58 ng/mlDDU (0-234) 08/15/20 09:06 ABG pH 7.404 pH Units (7.350-7.450) 08/09/20 18:09 ABG pCO2 41.0 mm Hg 08/09/20 18:09 ABG pO2 258.0 mm Hg (80.0-90.0) H 08/09/20 18:09 ABG HCO3 25.1 mmol/L (20.0-26.0) 08/09/20 18:09 ABG O2 Saturation 99.4 % (95.0-99.0) H 08/09/20 18:09 ABG O2 Content 17.8 (0.0-44) 08/09/20 18:09 ABG Base Excess 0.3 mmol/L (-2.0-3.0) 08/09/20 18:09 ABG Hemoglobin 12.5 gm/dl (12.0-16.0) 08/09/20 18:09 ABG Carboxyhemoglobin 1.0 % (0.0-5.0) 08/09/20 18:09 ABG Methemoglobin 0.6 % (0.0-1.5) 08/09/20 18:09 Oxyhemoglobin 97.9 % (95.0-99.0) 08/09/20 18:09 FiO2 60 % 08/09/20 18:09 Sodium 135 mmol/L (137-145) L 08/16/20 05:30 Potassium 4.6 mmol/L (3.6-5.0) 08/16/20 05:30 Chloride 99.4 mmol/L (98-107) 08/16/20 05:30 Carbon Dioxide 28 mmol/L (22-30) 08/16/20 05:30 Anion Gap 12 mmol/L 08/16/20 05:30 BUN 28 mg/dL (7-17) H 08/16/20 05:30 Creatinine 0.9 mg/dL (0.6-1.2) 08/16/20 05:30 Estimated GFR > 60 ml/min 08/16/20 05:30 BUN/Creatinine Ratio 31 % 08/16/20 05:30 Glucose 176 mg/dL (65-100) H 08/16/20 05:30 POC Glucose 93 mg/dL (70-105) 08/16/20 08:59 Hemoglobin A1c 6.1 % (4-6) H 08/10/20 00:10 Lactic Acid 1.90 mmol/L (0.7-2.0) 08/09/20 17:22 Calcium 8.7 mg/dL (8.4-10.2) 08/16/20 05:30 Magnesium 2.70 mg/dL (1.7-2.3) H 08/09/20 17:22 Ferritin 119.9 ng/mL (10.0-200.0) 08/09/20 17:22 Total Bilirubin 0.20 mg/dL (0.1-1.2) 08/14/20 07:35 AST 10 units/L (5-40) 08/14/20 07:35 ALT 12 units/L (7-56) 08/14/20 07:35 Alkaline Phosphatase 55 units/L (35-129) 08/14/20 07:35 Lactate Dehydrogenase 248 units/L (91-180) H 08/09/20 17:22 Lactate Dehydrogenase 269 units/L (91-180) H 08/09/20 17:22 Total Creatine Kinase 271 units/L (30-135) H 08/09/20 17:22 Troponin T < 0.010 ng/mL (0.00-0.029) 08/16/20 05:30 C-Reactive Protein 2.00 mg/dL (0.00-1.30) H 08/09/20 17:22 C-Reactive Protein 2.10 mg/dL (0.00-1.30) H 08/09/20 17:22 NT-Pro-B Natriuret Pep 266.4 pg/mL (0-900) 08/09/20 17:22 Total Protein 6.0 g/dL (6.3-8.2) L 08/14/20 07:35 Albumin 3.6 g/dL (3.9-5) L 08/14/20 07:35 Albumin/Globulin Ratio 1.5 % 08/14/20 07:35 Procalcitonin < 0.05 ng/mL (<0.15) 08/09/20 17:22 TSH 0.422 mlU/mL (0.270-4.200) 08/15/20 09:06 Coronavirus (PCR) Positive (Negative) A 08/09/20 10:05 Calderon/IV: Voiding Method Toilet Active Medications - Current Medications Current Medications: Generic Name Dose Route Start Last Admin Trade Name Freq PRN Reason Stop Dose Admin Acetaminophen 650 mg 08/10/20 00:09 Acetaminophen 325 Mg Tab PO Q4H PRN Pain MILD(1-3)/Fever >100.5/ANTONIO Albuterol 2.5 mg 08/10/20 00:30 Albuterol 2.5 Mg/3 Ml Nebu IH Q3HRT PRN Wheezing/ SOB Albuterol/Ipratropium 1 ampul 08/16/20 22:00 08/16/20 21:48 Ipratropium/Albuterol Sulfate 3 Ml Ampul.Neb IH 1 ampul BID REANNA Administration Apixaban 5 mg 08/15/20 22:00 08/16/20 21:39 Apixaban 5 Mg Tab PO 5 mg Q12HR REANNA Administration Protocol Arformoterol Tartrate 15 mcg 08/16/20 20:00 08/16/20 21:47 Arformoterol 15 Mcg/2 Ml Nebu IH 15 mcg Q12HRT REANNA Administration Ascorbic Acid 500 mg 08/16/20 22:00 08/16/20 21:39 Ascorbic Acid 500 Mg Tab PO 500 mg BID REANNA Administration Budesonide 0.5 mg 08/16/20 20:00 08/16/20 21:48 Budesonide 0.5 Mg/2 Ml Nebu IH 0.5 mg Q12HRT REANNA Administration Fluticasone Propionate 50 mcg 08/10/20 10:00 08/16/20 11:15 Fluticasone Propionate Nasal [place] 16 Gm NS 50 mcg QDAY REANNA Administration Furosemide 20 mg 08/10/20 06:00 08/17/20 06:11 Furosemide 20 Mg Tab PO 20 mg DAILY@0600 REANNA Administration Gabapentin 300 mg 08/10/20 00:45 08/17/20 06:11 Gabapentin 300 Mg Cap PO 300 mg Q8HR REANNA Administration Guaifenesin 200 mg 08/11/20 17:44 08/12/20 19:37 Guaifenesin 100 Mg/5 Ml Oral Liqd PO 200 mg Q6H PRN Administration Cough Hydromorphone HCl 0.5 mg 08/10/20 00:09 Hydromorphone 1 Mg/1 Ml Inj IV Q3H PRN Pain , Severe (7-10) Lorazepam 0.5 mg 08/10/20 10:41 08/15/20 02:09 Lorazepam 0.5 Mg Tab PO 0.5 mg Q8H PRN Administration Agitation Metformin HCl 500 mg 08/10/20 08:00 08/16/20 11:14 Metformin 500 Mg Tab PO 500 mg QDDIAB REANNA Administration Methylprednisolone Sodium Succinate 40 mg 08/12/20 10:00 08/16/20 21:39 Methylprednisolone Sod Succinate 40 Mg/1 Ml Inj IV 40 mg Q12HR REANNA Administration Metoprolol Tartrate 12.5 mg 08/16/20 22:00 08/16/20 22:52 Metoprolol Tartrate 25 Mg Tab PO 12.5 mg BID REANNA Administration Montelukast Sodium 10 mg 08/10/20 00:45 08/16/20 21:38 Montelukast 10 Mg Tab PO 10 mg QHS REANNA Administration Nitroglycerin 0.4 mg 08/09/20 17:11 Nitroglycerin 0.4 Mg Tab Subl SL .Q5MIN PRN Chest Pain Ondansetron HCl 4 mg 08/10/20 00:09 Ondansetron 4 Mg/2 Ml Inj IV Q8H PRN Nausea And Vomiting Oxycodone/Acetaminophen 1 tab 08/10/20 00:09 08/10/20 03:00 Oxycodone /Acetaminophen 5-325mg Tab PO 1 tab Q6H PRN Administration Pain, Moderate (4-6) Pantoprazole Sodium 40 mg 08/10/20 10:00 08/16/20 11:15 Pantoprazole 40 Mg Tab PO 40 mg QDAY REANNA Administration Sodium Chloride 10 ml 08/10/20 10:00 08/16/20 21:39 Sodium Chloride 0.9% 10 Ml Flush Syringe IV 10 ml BID REANNA Administration Sodium Chloride 10 ml 08/10/20 00:09 08/10/20 01:08 Sodium Chloride 0.9% 10 Ml Flush Syringe IV 10 ml PRN PRN Administration LINE FLUSH Zinc Sulfate 220 mg 08/17/20 10:00 Zinc Sulfate 220 Mg Cap PO QDAY REANNA
[2020-08-17] MEDS: BUDESONIDE 0.5 MG/2 ML NEBU IH SCH ×2 (08:17→20:37)
[2020-08-17] MEDS: IPRATROPIUM/ALBUTEROL SULFATE 3 ML AMPUL.NEB IH SCH ×3 (08:17→20:37)
[2020-08-17] MEDS: ARFORMOTEROL 15 MCG/2 ML NEBU IH SCH ×2 (08:17→20:37)
[2020-08-17] MEDS: methylPREDNISolone Sod Succinate 40 MG/1 ML INJ IV SCH ×2 (09:43→22:07)
[2020-08-17] MEDS: ZINC SULFATE 220 MG CAP PO SCH (09:43)
[2020-08-17] MEDS: APIXABAN 5 MG TAB PO SCH ×2 (09:43→22:07)
[2020-08-17] MEDS: PANTOPRAZOLE 40 MG TAB PO SCH (09:43)
[2020-08-17] MEDS: metFORMIN 500 MG TAB PO SCH (09:44)
[2020-08-17] MEDS: FLUTICASONE PROPIONATE NASAL SPRAY 16 GM NS SCH (10:10)
[2020-08-17] MEDS: METOPROLOL TARTRATE 25 MG TAB PO SCH ×3 (10:10→22:07)
[2020-08-17] MEDS: ASCORBIC ACID 500 MG TAB PO SCH ×2 (10:11→22:08)
[2020-08-17 10:35] LABS: Hematocrit 43.1 % (30.3-42.9); Hemoglobin 14.2 gm/dl (10.1-14.3); Mean Corpuscular HGB Conc 33 % (30-34); Mean Corpuscular Volume 88 fl (79-97); Platelet Count 345 K/mm3 (140-440); Red Blood Count 4.89 M/mm3 (3.65-5.03); Red Cell Distribution Width 14.6 % (13.2-15.2)
--- NOTE | 2020-08-17 12:47 | Progress Note ---
Assessment and Plan - Patient Problems (1) Paroxysmal atrial fibrillation Current Visit: Yes Status: Acute Plan to address problem: Patient presented with acute COVID-19 respiratory infection. Documented with transient, rapid atrial fibrillation on presentation. Currently asymptomatic, in a stable sinus rhythm on low-dose metoprolol and Eliquis. History of resolving nonischemic cardiomyopathy most recent left ventricular ejection fraction 45 to 50%. We will continue medical therapy, advance metoprolol as tolerated. Continue Eliquis. Subjective Date of service: 08/17/20 Principal diagnosis: Ac hypoxemic resp failure; AE-COPD; PAF; COVID-19 infection; CHF; DM II Interval history: The patient is comfortably no acute distress. She was admitted with an acute Covid infection and respiratory failure, on presentation manifested new onset atrial fibrillation. She reverted to sinus rhythm with an IV bolus of amiodarone, and is currently on low-dose metoprolol therapy. Currently in a stable sinus rhythm at 75. Eliquis has also been started for long-term oral anticoagulation. Her past history is notable for a nonischemic cardiomyopathy. 3 years ago, cardiac catheterization demonstrated angiographically normal coronary arteries, with left ventricular ejection fraction 20%. It was thought that this was an underestimation of the actual left ventricular function, due to probable contrast-induced LV function suppression. Serial echocardiograms have demonstrated much higher systolic ejection fractions, 45-50% most recently 9 months ago. Objective Vital Signs Temp Pulse Pulse Pulse Pulse Resp Resp 08/17/20 10:10 83 08/17/20 10:00 08/17/20 08:25 76 20 08/17/20 05:24 98.0 F 86 18 08/17/20 00:04 75 18 08/16/20 22:52 81 08/16/20 22:30 98.2 F 81 18 08/16/20 22:00 82 08/16/20 17:54 98.8 F 89 20 08/16/20 16:20 86 80 18 08/16/20 16:00 79 08/16/20 13:35 98.6 F 97 H 19 Resp BP Pulse Ox 08/17/20 10:10 113/73 08/17/20 10:00 94 08/17/20 08:25 98 08/17/20 05:24 114/83 97 08/17/20 00:04 98 05/02/21 22:52 102/57 08/16/20 22:30 102/57 97 08/16/20 22:00 18 08/16/20 17:54 104/68 98 08/16/20 16:20 18 08/16/20 16:00 08/16/20 13:35 108/63 100 - Physical Examination Narrative exam: Full physical exam is deferred due to positive COVID-19 status. General: Appears Well, No Apparent Distress - Labs and Meds CBC 08/17/20 Range/Units 09:40 WBC 12.8 H (4.5-11.0) K/mm3 RBC 4.89 (3.65-5.03) M/mm3 Hgb 14.2 (10.1-14.3) gm/dl Hct 43.1 H D (30.3-42.9) % Plt Count 345 (140-440) K/mm3 - Allied health notes Allied health notes reviewed: nursing
--- NOTE | 2020-08-17 13:51 | Progress Note ---
Assessment and Plan Patient alert and awake, sitting up by the side of the bed. No acute respiratory distress. Patient is on room air. O2 saturation is 96%. Bipap standby in the room. Patient afebrile, with mild leukocytosis. Positive COVID-19 PCR. Chest X-ray performed on 08/09/20. Chest x-ray shows no acute findings. No change. Medications include apixaban, dexamethasone, protonix, albuterol inhaler. - Patient Problems (1) Acute respiratory failure with hypoxia Current Visit: Yes Status: Acute Plan to address problem: Improved. Patient presently on room air. O2 saturation 96%. (2) COPD with exacerbation Current Visit: Yes Status: Acute Plan to address problem: Continue albuterol inhaler. Continue solumedrol. Continue apixaban. (3) Diabetes 1.5, managed as type 2 Current Visit: Yes Status: Acute Plan to address problem: Management per primary care. (4) Suspected 2019 novel coronavirus infection Current Visit: Yes Status: Acute Plan to address problem: Patient finished course of remdesivir. Patient presently on dexamethasone and apixaban. (5) GERD (gastroesophageal reflux disease) Current Visit: No Status: Chronic Qualifiers: Esophagitis presence: without esophagitis Qualified Code(s): K21.9 - Gastro-esophageal reflux disease without esophagitis Plan to address problem: Continue protonix. (6) HTN (hypertension) Current Visit: No Status: Chronic Qualifiers: Hypertension type: unspecified Qualified Code(s): I10 - Essential (primary) hypertension Plan to address problem: management per primary care. Subjective Date of service: 08/17/20 Principal diagnosis: Ac hypoxemic resp failure; AE-COPD; PAF; COVID-19 infection; CHF; DM II Interval history: Patient alert and awake, sitting up by the side of the bed. No acute respiratory distress. Patient is on room air. O2 saturation is 96%. Bipap standby in the room. Patient afebrile, with mild leukocytosis. Positive COVID-19 PCR. Chest X-ray performed on 08/09/20. Chest x-ray shows no acute findings. No change. Medications include apixaban, dexamethasone, protonix, albuterol inhaler. Objective Vital Signs - 12hr 08/17/20 08/17/20 08/17/20 05:24 08:25 10:00 Temperature 98.0 F Pulse Rate 86 Pulse Rate [ 76 Anterior Bilateral Throughout] Respiratory 18 Rate Respiratory 20 Rate [Anterior Bilateral Throughout] Blood Pressure 114/83 O2 Sat by Pulse 97 98 94 Oximetry 08/17/20 08/17/20 10:10 13:39 Temperature Pulse Rate 83 91 H Pulse Rate [ Anterior Bilateral Throughout] Respiratory Rate Respiratory Rate [Anterior Bilateral Throughout] Blood Pressure 113/73 112/56 O2 Sat by Pulse Oximetry Constitutional: no acute distress, alert Eyes: non-icteric ENT: oropharynx moist Neck: supple, no lymphadenopathy, no JVD Effort: mildly labored Ascultation: Bilateral: diminished breath sounds, wheezes (faint; R>L posteriorly) Percussion: Bilateral: not dull Cardiovascular: regular rate and rhythm (no mrg) Gastrointestinal: normoactive bowel sounds, soft, non-tender Integumentary: normal Extremities: no cyanosis, no edema, pulses normal, no ischemia or petechiae Neurologic: normal mental status, non-focal exam, pupils equal and round, motor strength normal and Psychiatric: mood appropriate, affect normal CBC and BMP: 08/17/20 09:40 08/16/20 05:30 ABG, PT/INR, D-dimer: ABG ABG pH 7.404 pH Units (7.350-7.450) 08/09/20 18:09 ABG pCO2 41.0 mm Hg 08/09/20 18:09 ABG pO2 258.0 mm Hg (80.0-90.0) H 08/09/20 18:09 ABG O2 Saturation 99.4 % (95.0-99.0) H 08/09/20 18:09 PT/INR, D-dimer PT 18.5 Sec. (12.2-14.9) H 08/15/20 18:36 INR 1.54 (0.87-1.13) H 08/15/20 18:36 D-Dimer 185.58 ng/mlDDU (0-234) 08/15/20 09:06 Abnormal lab findings: Abnormal Labs 08/09/20 08/09/20 08/09/20 10:05 17:22 17:22 WBC Hct Lymph % (Auto) Lymph # (Auto) Seg Neutrophils % Seg Neuts % (Manual) Lymphocytes % (Manual) 4.0 L Seg Neutrophils # Seg Neutrophils # Man Lymphocytes # (Manual) 0.3 L PT 16.8 H INR 1.38 H D-Dimer 243.07 H ABG pO2 ABG O2 Saturation Sodium BUN Glucose POC Glucose Hemoglobin A1c Magnesium Lactate Dehydrogenase Total Creatine Kinase C-Reactive Protein Total Protein Albumin Coronavirus (PCR) Positive A 08/09/20 08/09/20 08/09/20 17:22 17:22 17:22 WBC Hct Lymph % (Auto) Lymph # (Auto) Seg Neutrophils % Seg Neuts % (Manual) Lymphocytes % (Manual) Seg Neutrophils # Seg Neutrophils # Man Lymphocytes # (Manual) PT INR D-Dimer 243.07 H ABG pO2 ABG O2 Saturation Sodium BUN Glucose 228 H 233 H POC Glucose Hemoglobin A1c Magnesium 2.70 H Lactate Dehydrogenase 269 H 248 H Total Creatine Kinase 271 H C-Reactive Protein 2.00 H 2.10 H Total Protein Albumin Coronavirus (PCR) 08/09/20 08/09/20 08/10/20 18:09 23:22 00:10 WBC Hct Lymph % (Auto) Lymph # (Auto) Seg Neutrophils % Seg Neuts % (Manual) Lymphocytes % (Manual) Seg Neutrophils # Seg Neutrophils # Man Lymphocytes # (Manual) PT INR D-Dimer ABG pO2 258.0 H ABG O2 Saturation 99.4 H Sodium BUN Glucose POC Glucose 174 H Hemoglobin A1c 6.1 H Magnesium Lactate Dehydrogenase Total Creatine Kinase C-Reactive Protein Total Protein Albumin Coronavirus (PCR) 08/10/20 08/10/20 08/10/20 07:24 12:11 17:09 WBC Hct Lymph % (Auto) Lymph # (Auto) Seg Neutrophils % Seg Neuts % (Manual) Lymphocytes % (Manual) Seg Neutrophils # Seg Neutrophils # Man Lymphocytes # (Manual) PT INR D-Dimer ABG pO2 ABG O2 Saturation Sodium BUN Glucose POC Glucose 142 H 141 H 184 H Hemoglobin A1c Magnesium Lactate Dehydrogenase Total Creatine Kinase C-Reactive Protein Total Protein Albumin Coronavirus (PCR) 08/11/20 08/11/20 08/11/20 09:24 09:24 12:11 WBC 14.4 H Hct Lymph % (Auto) Lymph # (Auto) Seg Neutrophils % Seg Neuts % (Manual) 94.0 H Lymphocytes % (Manual) 6.0 L Seg Neutrophils # Seg Neutrophils # Man 13.5 H Lymphocytes # (Manual) 0.9 L PT INR D-Dimer ABG pO2 ABG O2 Saturation Sodium 134 L BUN 28 H Glucose 162 H POC Glucose 155 H Hemoglobin A1c Magnesium Lactate Dehydrogenase Total Creatine Kinase C-Reactive Protein Total Protein Albumin Coronavirus (PCR) 08/11/20 08/11/20 08/11/20 14:24 16:08 21:28 WBC Hct Lymph % (Auto) Lymph # (Auto) Seg Neutrophils % Seg Neuts % (Manual) Lymphocytes % (Manual) Seg Neutrophils # Seg Neutrophils # Man Lymphocytes # (Manual) PT INR D-Dimer ABG pO2 ABG O2 Saturation Sodium BUN 28 H Glucose 129 H POC Glucose 145 H 281 H Hemoglobin A1c Magnesium Lactate Dehydrogenase Total Creatine Kinase C-Reactive Protein Total Protein Albumin Coronavirus (PCR) 08/12/20 08/12/20 08/12/20 07:31 07:31 08:56 WBC 12.1 H Hct Lymph % (Auto) 8.0 L Lymph # (Auto) 1.0 L Seg Neutrophils % 88.0 H Seg Neuts % (Manual) Lymphocytes % (Manual) Seg Neutrophils # 10.7 H Seg Neutrophils # Man Lymphocytes # (Manual) PT INR D-Dimer ABG pO2 ABG O2 Saturation Sodium BUN 26 H Glucose 142 H POC Glucose 136 H Hemoglobin A1c Magnesium Lactate Dehydrogenase Total Creatine Kinase C-Reactive Protein Total Protein Albumin 3.7 L Coronavirus (PCR) 08/12/20 08/12/20 08/13/20 18:32 20:12 07:56 WBC Hct Lymph % (Auto) Lymph # (Auto) Seg Neutrophils % Seg Neuts % (Manual) Lymphocytes % (Manual) Seg Neutrophils # Seg Neutrophils # Man Lymphocytes # (Manual) PT INR D-Dimer ABG pO2 ABG O2 Saturation Sodium BUN 27 H Glucose 133 H POC Glucose 158 H 174 H Hemoglobin A1c Magnesium Lactate Dehydrogenase Total Creatine Kinase C-Reactive Protein Total Protein 5.7 L Albumin 3.4 L Coronavirus (PCR) 08/13/20 08/13/20 08/13/20 08:13 12:21 16:52 WBC Hct Lymph % (Auto) Lymph # (Auto) Seg Neutrophils % Seg Neuts % (Manual) Lymphocytes % (Manual) Seg Neutrophils # Seg Neutrophils # Man Lymphocytes # (Manual) PT INR D-Dimer ABG pO2 ABG O2 Saturation Sodium BUN Glucose POC Glucose 134 H 112 H 189 H Hemoglobin A1c Magnesium Lactate Dehydrogenase Total Creatine Kinase C-Reactive Protein Total Protein Albumin Coronavirus (PCR) 08/13/20 08/14/20 08/14/20 21:28 07:35 10:57 WBC Hct Lymph % (Auto) Lymph # (Auto) Seg Neutrophils % Seg Neuts % (Manual) Lymphocytes % (Manual) Seg Neutrophils # Seg Neutrophils # Man Lymphocytes # (Manual) PT INR D-Dimer ABG pO2 ABG O2 Saturation Sodium 135 L BUN 22 H Glucose 112 H POC Glucose 187 H 136 H Hemoglobin A1c Magnesium Lactate Dehydrogenase Total Creatine Kinase C-Reactive Protein Total Protein 6.0 L Albumin 3.6 L Coronavirus (PCR) 08/14/20 08/15/20 08/15/20 15:55 06:19 07:49 WBC Hct Lymph % (Auto) Lymph # (Auto) Seg Neutrophils % Seg Neuts % (Manual) Lymphocytes % (Manual) Seg Neutrophils # Seg Neutrophils # Man Lymphocytes # (Manual) PT INR D-Dimer ABG pO2 ABG O2 Saturation Sodium BUN Glucose POC Glucose 147 H 152 H 116 H Hemoglobin A1c Magnesium Lactate Dehydrogenase Total Creatine Kinase C-Reactive Protein Total Protein Albumin Coronavirus (PCR) 08/15/20 08/15/20 08/15/20 11:46 18:36 18:36 WBC 14.4 H Hct Lymph % (Auto) Lymph # (Auto) Seg Neutrophils % Seg Neuts % (Manual) Lymphocytes % (Manual) Seg Neutrophils # Seg Neutrophils # Man Lymphocytes # (Manual) PT 18.5 H INR 1.54 H D-Dimer ABG pO2 ABG O2 Saturation Sodium BUN Glucose POC Glucose 118 H Hemoglobin A1c Magnesium Lactate Dehydrogenase Total Creatine Kinase C-Reactive Protein Total Protein Albumin Coronavirus (PCR) 08/16/20 08/16/20 08/17/20 05:30 05:30 09:40 WBC 11.2 H 12.8 H Hct 43.1 H D Lymph % (Auto) Lymph # (Auto) Seg Neutrophils % 82.0 H Seg Neuts % (Manual) Lymphocytes % (Manual) Seg Neutrophils # 9.2 H Seg Neutrophils # Man Lymphocytes # (Manual) PT INR D-Dimer ABG pO2 ABG O2 Saturation Sodium 135 L BUN 28 H Glucose 176 H POC Glucose Hemoglobin A1c Magnesium Lactate Dehydrogenase Total Creatine Kinase C-Reactive Protein Total Protein Albumin Coronavirus (PCR) Chest x-ray: report reviewed, image reviewed Additional Studies: 08/09/20 FINDINGS: SUPPORT DEVICES: None. HEART / MEDIASTINUM: No significant abnormality. LUNGS / PLEURA: No significant pulmonary or pleural abnormality. No pneumothorax. ADDITIONAL FINDINGS: No significant additional findings. IMPRESSION: 1. No acute findings. No change. Allied health notes reviewed: nursing
[2020-08-17] MEDS: MONTELUKAST 10 MG TAB PO SCH (22:07)
[2020-08-18] MEDS: METOPROLOL TARTRATE 25 MG TAB PO SCH ×3 (05:23→21:09)
[2020-08-18] MEDS: GABAPENTIN 300 MG CAP PO SCH ×3 (05:28→21:09)
[2020-08-18] MEDS: FUROSEMIDE 20 MG TAB PO SCH (05:28)
[2020-08-18] MEDS: IPRATROPIUM/ALBUTEROL SULFATE 3 ML AMPUL.NEB IH SCH ×2 (07:24→19:58)
[2020-08-18] MEDS: ARFORMOTEROL 15 MCG/2 ML NEBU IH SCH ×2 (07:24→19:59)
[2020-08-18] MEDS: BUDESONIDE 0.5 MG/2 ML NEBU IH SCH ×2 (07:24→19:58)
--- NOTE | 2020-08-18 07:52 | Progress Note ---
Assessment and Plan Assessment and plan: Acute respiratory failure with hypoxia Etiology secondary to COVID-19 pneumonia. Patient is saturating well on room air. Asthma exacerbation Continue nebulizers tapering dose of steroids Inhalation steroids pulmonary following. A. fib with RVR Rate controlled and in sinus rhythm No beta-blockers due to hypotension, Continue Eliquis for chronic anticoagulation LVEF 40 to 45% 09/2019 Cardiology optimize medications COVID-19 pneumonia Patient tested positive on 08/09 Management per Covid 19 protocols and guidelines Patient received remdesivir, continue Solu-Medrol with tapering doses per pulm onary Saturating well on room air now, home oxygen evaluation prior to discharge. CHF (congestive heart failure) EF 40-45% 1 year ago October 04 Continue current management Will DC patient home this evening or tomorrow morning if stable Patient will have outpatient echo for most recent EF Hypertension BP in the lower range closely monitor. Diabetes 1.5, managed as type 2. Well-controlled, Accu-Chek sliding scale coverage ADA diet Oral hypoglycemics Metformin, long-acting insulin as needed. DVT prophylaxis Patient is already on Eliquis Home O2 evaluation at discharge Currently saturating well on room air Awaiting echocardiogram. If not done by tomorrow will DC home Echo as outpatient in health care analyst office Possible discharge tomorrow if stable Daily Hospital course: 08/12/2020. Exercise pulse oximetry testing today. Remdesivir initiated by infectious disease. Antibiotic discontinued given low procalcitonin. Wean steroids today and follow-up oxygenation 08/13/2020. Patient with significant hypoxemia requiring BiPAP 16/8 with FiO2 40%. Patient currently on remdesivir and steroids. We will consult pulmonology for further evaluation. ID following. 08/14/2020. Patient with hypoxia that is improved. Exercise pulse oximetry testing today. Await completion of remdesivir given risk factor of asthma and BIPAP at night 08/15/2020. Patient with episode of A. fib with RVR last evening and a couple episodes this morning. Patient with no history of atrial fibrillation. Cardiology consulted for new onset A. fib. Check echocardiogram. Check cardiac isoenzymes, D-dimer and TSH. Patient will be transferred to the [facility] and placed on amiodarone drip. Continue BiPAP as clinically indicated for respiratory failure/asthma exacerbation. 08/16/2020. Patient converted to sinus rhythm with IV amiodarone bolus. TSH normal. Follow-up echocardiogram. Cardiology started Eliquis 5 mg p.o. twice daily. 08/17/20. Still awaiting echocardiogram. Continue metoprolol for rate control. Eliquis for anticoagulation. Continue Solu-Medrol per pulmonary recommendations. Consider changing to dexamethasone 08/18/20; awaiting echocardiogram for LV function ejection fraction, patient Sp boyle with rapid ventricular rate rate controlled No beta-blockers due to mild hypotension, saturating well on room air History Interval history: I have seen and examined the patient at the bedside Patient's chart and medications reviewed Patient feels slightly better Denies chest pain or shortness of breath Sinus rhythm rate controlled Vital signs reviewed Hospitalist Physical - Constitutional Vitals: Temp Pulse Resp BP Pulse Ox 98.5 F 66 18 98/63 96 08/18/20 05:18 08/18/20 05:23 08/18/20 05:18 08/18/20 05:23 08/18/20 05:18 General appearance: Present: no acute distress, well-nourished - EENT Eyes: Present: PERRL, EOM intact - Neck Neck: Present: supple, normal ROM - Respiratory Respiratory effort: normal Respiratory: bilateral: diminished, negative: rales, rhonchi, wheezing - Cardiovascular Rhythm: regular Heart Sounds: Present: S1 & S2 - Extremities Extremities: no ischemia, No edema - Abdominal General gastrointestinal: soft, non-tender, non-distended - Integumentary Integumentary: Present: clear, warm - Psychiatric Psychiatric: appropriate mood/affect, cooperative - Neurologic Neurologic: moves all extremities HEART Score - HEART Score EKG: Non-specific Age: 45-65 Risk factors: > 3 risk factors or hx of atherosclerotic disease Troponin: Troponin T < 0.010 ng/mL (0.00-0.029) 08/16/20 05:30 Troponin: < normal limit - Critical Actions Critical Actions: 4-6 pts:12-16.6% risk of adverse cardiac event. Should be admitted Results - Labs CBC & Chem 7: 08/17/20 09:40 08/18/20 05:44 Labs: Laboratory Last Values WBC 12.8 K/mm3 (4.5-11.0) H 08/17/20 09:40 RBC 4.89 M/mm3 (3.65-5.03) 08/17/20 09:40 Hgb 14.2 gm/dl (10.1-14.3) 08/17/20 09:40 Hct 43.1 % (30.3-42.9) H D 08/17/20 09:40 MCV 88 fl (79-97) 08/17/20 09:40 MCH 29 pg (28-32) 08/17/20 09:40 MCHC 33 % (30-34) 08/17/20 09:40 RDW 14.6 % (13.2-15.2) 08/17/20 09:40 Plt Count 345 K/mm3 (140-440) 08/17/20 09:40 Lymph % (Auto) 14.1 % (13.4-35.0) 08/16/20 05:30 [place] % (Auto) 3.8 % (0.0-7.3) 08/16/20 05:30 Eos % (Auto) 0.0 % (0.0-4.3) 08/16/20 05:30 Baso % (Auto) 0.1 % (0.0-1.8) 08/16/20 05:30 Lymph # (Auto) 1.6 K/mm3 (1.2-5.4) 08/16/20 05:30 [place] # (Auto) 0.4 K/mm3 (0.0-0.8) 08/16/20 05:30 Eos # (Auto) 0.0 K/mm3 (0.0-0.4) 08/16/20 05:30 Baso # (Auto) 0.0 K/mm3 (0.0-0.1) 08/16/20 05:30 Add Manual Diff Complete 08/11/20 09:24 Total Counted 100 08/11/20 09:24 Seg Neutrophils % 82.0 % (40.0-70.0) H 08/16/20 05:30 Seg Neuts % (Manual) 94.0 % (40.0-70.0) H 08/11/20 09:24 Band Neutrophils % 2.0 % 08/09/20 17:22 Lymphocytes % (Manual) 6.0 % (13.4-35.0) L 08/11/20 09:24 Monocytes % (Manual) 1.0 % (0.0-7.3) 08/09/20 17:22 Nucleated RBC % Not Reportable 08/11/20 09:24 Seg Neutrophils # 9.2 K/mm3 (1.8-7.7) H 08/16/20 05:30 Seg Neutrophils # Man 13.5 K/mm3 (1.8-7.7) H 08/11/20 09:24 Band Neutrophils # 0.0 K/mm3 08/11/20 09:24 Lymphocytes # (Manual) 0.9 K/mm3 (1.2-5.4) L 08/11/20 09:24 Abs React Lymphs (Man) 0.0 K/mm3 08/11/20 09:24 Monocytes # (Manual) 0.0 K/mm3 (0.0-0.8) 08/11/20 09:24 Eosinophils # (Manual) 0.0 K/mm3 (0.0-0.4) 08/11/20 09:24 Basophils # (Manual) 0.0 K/mm3 (0.0-0.1) 08/11/20 09:24 Metamyelocytes # 0.0 K/mm3 08/11/20 09:24 Myelocytes # 0.0 K/mm3 08/11/20 09:24 Promyelocytes # 0.0 K/mm3 08/11/20 09:24 Blast Cells # 0.0 K/mm3 08/11/20 09:24 WBC Morphology Not Reportable 08/11/20 09:24 Hypersegmented Neuts Not Reportable 08/11/20 09:24 Hyposegmented Neuts Not Reportable 08/11/20 09:24 Hypogranular Neuts Not Reportable 08/11/20 09:24 Smudge Cells Not Reportable 08/11/20 09:24 Toxic Granulation 1+ 08/11/20 09:24 Toxic Vacuolation Not Reportable 08/11/20 09:24 Dohle Bodies Not Reportable 08/11/20 09:24 Pelger-Huet Anomaly Not Reportable 08/11/20 09:24 Giuseppe Rods Not Reportable 08/11/20 09:24 Platelet Estimate Consistent w auto 08/11/20 09:24 Clumped Platelets Not Reportable 08/11/20 09:24 Plt Clumps, EDTA Not Reportable 08/11/20 09:24 Large Platelets Not Reportable 08/11/20 09:24 Giant Platelets Not Reportable 08/11/20 09:24 Platelet Satelliting Not Reportable 08/11/20 09:24 Plt Morphology Comment Not Reportable 08/11/20 09:24 RBC Morphology Not Reportable 08/11/20 09:24 Dimorphic RBCs Not Reportable 08/11/20 09:24 Polychromasia Not Reportable 08/11/20 09:24 Hypochromasia Not Reportable 08/11/20 09:24 Poikilocytosis 2+ 08/11/20 09:24 Anisocytosis Not Reportable 08/11/20 09:24 Microcytosis Not Reportable 08/11/20 09:24 Macrocytosis Not Reportable 08/11/20 09:24 Spherocytes Not Reportable 08/11/20 09:24 Pappenheimer Bodies Not Reportable 08/11/20 09:24 Sickle Cells Not Reportable 08/11/20 09:24 Target Cells Not Reportable 08/11/20 09:24 Tear Drop Cells Not Reportable 08/11/20 09:24 Ovalocytes 1+ 08/11/20 09:24 Helmet Cells Not Reportable 08/11/20 09:24 Phillips-Lemoore Bodies Not Reportable 08/11/20 09:24 Iota Rings Not Reportable 08/11/20 09:24 [place]wood Cells 1+ 08/11/20 09:24 Bite Cells Not Reportable 08/11/20 09:24 Crenated Cell Not Reportable 08/11/20 09:24 Elliptocytes Not Reportable 08/11/20 09:24 Acanthocytes (Spur) Not Reportable 08/11/20 09:24 Rouleaux Not Reportable 08/11/20 09:24 Hemoglobin C Crystals Not Reportable 08/11/20 09:24 Schistocytes Not Reportable 08/11/20 09:24 Malaria parasites Not Reportable 08/11/20 09:24 Alfonso Bodies Not Reportable 08/11/20 09:24 Hem Pathologist Commnt No 08/11/20 09:24 PT 18.5 Sec. (12.2-14.9) H 08/15/20 18:36 INR 1.54 (0.87-1.13) H 08/15/20 18:36 APTT 27.6 Sec. (24.2-36.6) 08/15/20 18:36 D-Dimer 185.58 ng/mlDDU (0-234) 08/15/20 09:06 ABG pH 7.404 pH Units (7.350-7.450) 08/09/20 18:09 ABG pCO2 41.0 mm Hg 08/09/20 18:09 ABG pO2 258.0 mm Hg (80.0-90.0) H 08/09/20 18:09 ABG HCO3 25.1 mmol/L (20.0-26.0) 08/09/20 18:09 ABG O2 Saturation 99.4 % (95.0-99.0) H 08/09/20 18:09 ABG O2 Content 17.8 (0.0-44) 08/09/20 18:09 ABG Base Excess 0.3 mmol/L (-2.0-3.0) 08/09/20 18:09 ABG Hemoglobin 12.5 gm/dl (12.0-16.0) 08/09/20 18:09 ABG Carboxyhemoglobin 1.0 % (0.0-5.0) 08/09/20 18:09 ABG Methemoglobin 0.6 % (0.0-1.5) 08/09/20 18:09 Oxyhemoglobin 97.9 % (95.0-99.0) 08/09/20 18:09 FiO2 60 % 08/09/20 18:09 Sodium 135 mmol/L (137-145) L 08/16/20 05:30 Potassium 4.6 mmol/L (3.6-5.0) 08/16/20 05:30 Chloride 99.4 mmol/L (98-107) 08/16/20 05:30 Carbon Dioxide 28 mmol/L (22-30) 08/16/20 05:30 Anion Gap 12 mmol/L 08/16/20 05:30 BUN 28 mg/dL (7-17) H 08/16/20 05:30 Creatinine 1.0 mg/dL (0.6-1.2) 08/18/20 05:44 Estimated GFR > 60 ml/min 08/18/20 05:44 BUN/Creatinine Ratio 31 % 08/16/20 05:30 Glucose 176 mg/dL (65-100) H 08/16/20 05:30 POC Glucose 92 mg/dL (70-105) 08/17/20 11:36 Hemoglobin A1c 6.1 % (4-6) H 08/10/20 00:10 Lactic Acid 1.90 mmol/L (0.7-2.0) 08/09/20 17:22 Calcium 8.7 mg/dL (8.4-10.2) 08/16/20 05:30 Magnesium 2.70 mg/dL (1.7-2.3) H 08/09/20 17:22 Ferritin 119.9 ng/mL (10.0-200.0) 08/09/20 17:22 Total Bilirubin 0.20 mg/dL (0.1-1.2) 08/14/20 07:35 AST 10 units/L (5-40) 08/14/20 07:35 ALT 12 units/L (7-56) 08/14/20 07:35 Alkaline Phosphatase 55 units/L (35-129) 08/14/20 07:35 Lactate Dehydrogenase 248 units/L (91-180) H 08/09/20 17:22 Lactate Dehydrogenase 269 units/L (91-180) H 08/09/20 17:22 Total Creatine Kinase 271 units/L (30-135) H 08/09/20 17:22 Troponin T < 0.010 ng/mL (0.00-0.029) 08/16/20 05:30 C-Reactive Protein 2.00 mg/dL (0.00-1.30) H 08/09/20 17:22 C-Reactive Protein 2.10 mg/dL (0.00-1.30) H 08/09/20 17:22 NT-Pro-B Natriuret Pep 266.4 pg/mL (0-900) 08/09/20 17:22 Total Protein 6.0 g/dL (6.3-8.2) L 08/14/20 07:35 Albumin 3.6 g/dL (3.9-5) L 08/14/20 07:35 Albumin/Globulin Ratio 1.5 % 08/14/20 07:35 Procalcitonin < 0.05 ng/mL (<0.15) 08/09/20 17:22 TSH 0.422 mlU/mL (0.270-4.200) 08/15/20 09:06 Coronavirus (PCR) Positive (Negative) A 08/09/20 10:05 Calderon/IV: Voiding Method Toilet Active Medications - Current Medications Current Medications: Generic Name Dose Route Start Last Admin Trade Name Freq PRN Reason Stop Dose Admin Acetaminophen 650 mg 08/10/20 00:09 Acetaminophen 325 Mg Tab PO Q4H PRN Pain MILD(1-3)/Fever >100.5/ANTONIO Albuterol 2.5 mg 08/10/20 00:30 Albuterol 2.5 Mg/3 Ml Nebu IH Q3HRT PRN Wheezing/ SOB Albuterol/Ipratropium 1 ampul 08/17/20 08:45 08/18/20 07:24 Ipratropium/Albuterol Sulfate 3 Ml Ampul.Neb IH 1 ampul BIDRT REANNA Administration Apixaban 5 mg 08/15/20 22:00 08/17/20 22:07 Apixaban 5 Mg Tab PO 5 mg Q12HR REANNA Administration Protocol Arformoterol Tartrate 15 mcg 08/16/20 20:00 08/18/20 07:24 Arformoterol 15 Mcg/2 Ml Nebu IH 15 mcg Q12HRT REANNA Administration Ascorbic Acid 500 mg 08/16/20 22:00 08/17/20 22:08 Ascorbic Acid 500 Mg Tab PO 500 mg BID REANNA Administration Budesonide 0.5 mg 08/16/20 20:00 08/18/20 07:24 Budesonide 0.5 Mg/2 Ml Nebu IH 0.5 mg Q12HRT REANNA Administration Fluticasone Propionate 50 mcg 08/10/20 10:00 08/17/20 10:10 Fluticasone Propionate Nasal Healy 16 Gm NS 50 mcg QDAY REANNA Administration Furosemide 20 mg 08/10/20 06:00 08/18/20 05:28 Furosemide 20 Mg Tab PO 20 mg DAILY@0600 REANNA Administration Gabapentin 300 mg 08/10/20 00:45 08/18/20 05:28 Gabapentin 300 Mg Cap PO 300 mg Q8HR REANNA Administration Guaifenesin 200 mg 08/11/20 17:44 08/12/20 19:37 Guaifenesin 100 Mg/5 Ml Oral Liqd PO 200 mg Q6H PRN Administration Cough Hydromorphone HCl 0.5 mg 08/10/20 00:09 Hydromorphone 1 Mg/1 Ml Inj IV Q3H PRN Pain , Severe (7-10) Lorazepam 0.5 mg 08/10/20 10:41 08/15/20 02:09 Lorazepam 0.5 Mg Tab PO 0.5 mg Q8H PRN Administration Agitation Metformin HCl 500 mg 08/10/20 08:00 08/17/20 09:44 Metformin 500 Mg Tab PO 500 mg QDDIAB REANNA Administration Methylprednisolone Sodium Succinate 40 mg 08/12/20 10:00 08/17/20 22:07 Methylprednisolone Sod Succinate 40 Mg/1 Ml Inj IV 40 mg Q12HR REANNA Administration Metoprolol Tartrate 25 mg 08/17/20 14:00 08/18/20 05:23 Metoprolol Tartrate 25 Mg Tab PO Not Given Q8HR REANNA Montelukast Sodium 10 mg 08/10/20 00:45 08/17/20 22:07 Montelukast 10 Mg Tab PO 10 mg QHS REANNA Administration Nitroglycerin 0.4 mg 08/09/20 17:11 Nitroglycerin 0.4 Mg Tab Subl SL .Q5MIN PRN Chest Pain Ondansetron HCl 4 mg 08/10/20 00:09 Ondansetron 4 Mg/2 Ml Inj IV Q8H PRN Nausea And Vomiting Oxycodone/Acetaminophen 1 tab 08/10/20 00:09 08/10/20 03:00 Oxycodone /Acetaminophen 5-325mg Tab PO 1 tab Q6H PRN Administration Pain, Moderate (4-6) Pantoprazole Sodium 40 mg 08/10/20 10:00 08/17/20 09:43 Pantoprazole 40 Mg Tab PO 40 mg QDAY REANNA Administration Sodium Chloride 10 ml 08/10/20 10:00 08/17/20 22:07 Sodium Chloride 0.9% 10 Ml Flush Syringe IV 10 ml BID REANNA Administration Sodium Chloride 10 ml 08/10/20 00:09 08/10/20 01:08 Sodium Chloride 0.9% 10 Ml Flush Syringe IV 10 ml PRN PRN Administration LINE FLUSH Zinc Sulfate 220 mg 08/17/20 10:00 08/17/20 09:43 Zinc Sulfate 220 Mg Cap PO 220 mg QDAY REANNA Administration
--- NOTE | 2020-08-18 08:56 | Progress Note ---
Assessment and Plan Paroxysmal atrial fibrillation initiated on Eliquis; on metoprolol for suppression currently, she is sinus rhythm on telemetry TSH is normal at 0.422. COVID-19 infection Hx of Nonischemic CMP, resolving LVEF 45-50% by echo 09/2019. [facility] 12/2016: normal coronaries with EF 20%. Asthma Hypertension Diabetes Continue oral anticoagulation and beta blockers for paroxysmal atrial fibrillation. Subjective Date of service: 08/18/20 Principal diagnosis: Ac hypoxemic resp failure; AE-COPD; PAF; COVID-19 infection; CHF; DM II Interval history: Currently, she is stable sinus rhythm on telemetry. Objective Vital Signs Temp Pulse Pulse Resp Resp BP Pulse Ox 08/18/20 05:23 66 98/63 08/18/20 05:18 98.5 F 66 18 98/63 96 08/17/20 22:57 97.9 F 74 18 113/69 97 08/17/20 22:07 73 115/65 08/17/20 22:00 20 95 08/17/20 20:43 95 08/17/20 20:41 83 20 08/17/20 18:47 98.1 F 73 22 110/66 95 08/17/20 13:39 91 H 112/56 08/17/20 11:38 98.1 F 71 22 109/76 96 08/17/20 10:10 83 113/73 08/17/20 10:00 94 - Physical Examination Narrative exam: Deferred due to isolation protocol. General: No Apparent Distress Cardiac: Positive: Reg Rate and Rhythm - Labs and Meds CBC 08/17/20 Range/Units 09:40 WBC 12.8 H (4.5-11.0) K/mm3 RBC 4.89 (3.65-5.03) M/mm3 Hgb 14.2 (10.1-14.3) gm/dl Hct 43.1 H D (30.3-42.9) % Plt Count 345 (140-440) K/mm3 Comprehensive Metabolic Panel 08/18/20 Range/Units 05:44 Creatinine 1.0 (0.6-1.2) mg/dL - Allied health notes Allied health notes reviewed: nursing
[2020-08-18] MEDS: ZINC SULFATE 220 MG CAP PO SCH (09:30)
[2020-08-18] MEDS: ASCORBIC ACID 500 MG TAB PO SCH ×2 (09:30→21:09)
[2020-08-18] MEDS: APIXABAN 5 MG TAB PO SCH ×2 (09:30→21:09)
[2020-08-18] MEDS: PANTOPRAZOLE 40 MG TAB PO SCH (09:30)
[2020-08-18] MEDS: metFORMIN 500 MG TAB PO SCH (09:30)
[2020-08-18] MEDS: methylPREDNISolone Sod Succinate 40 MG/1 ML INJ IV SCH ×2 (09:30→21:10)
[2020-08-18] MEDS: FLUTICASONE PROPIONATE NASAL SPRAY 16 GM NS SCH (09:31)
--- NOTE | 2020-08-18 10:55 | Progress Note ---
Assessment and Plan Patient alert and awake, walking in the room. No acute respiratory distress. Patient is on room air. O2 saturation is 96%. Bipap standby in the room. Patient afebrile, with mild leukocytosis. Positive COVID-19 PCR. Chest X-ray performed on 08/09/20. Chest x-ray shows no acute findings. No change. Repeating Chest x-ray and ABG's. Medications include apixaban, dexamethasone, protonix, albuterol inhaler. - Patient Problems (1) Acute respiratory failure with hypoxia Current Visit: Yes Status: Acute Plan to address problem: Improved. Patient presently on room air. O2 saturation 96%. (2) COPD with exacerbation Current Visit: Yes Status: Acute Plan to address problem: Continue albuterol inhaler. Continue solumedrol. Continue apixaban. (3) Diabetes 1.5, managed as type 2 Current Visit: Yes Status: Acute Plan to address problem: Management per primary care. (4) Suspected 2019 novel coronavirus infection Current Visit: Yes Status: Acute Plan to address problem: Patient finished course of remdesivir. Patient presently on dexamethasone and apixaban. (5) GERD (gastroesophageal reflux disease) Current Visit: No Status: Chronic Qualifiers: Esophagitis presence: without esophagitis Qualified Code(s): K21.9 - Ga stro-esophageal reflux disease without esophagitis Plan to address problem: Continue protonix. (6) HTN (hypertension) Current Visit: No Status: Chronic Qualifiers: Hypertension type: unspecified Qualified Code(s): I10 - Essential (primary) hypertension Plan to address problem: management per primary care. Subjective Date of service: 08/18/20 Principal diagnosis: Ac hypoxemic resp failure; AE-COPD; PAF; COVID-19 infection; CHF; DM II Interval history: Patient alert and awake, walking in the room. No acute respiratory distress. Patient is on room air. O2 saturation is 96%. Bipap standby in the room. Patient afebrile, with mild leukocytosis. Positive COVID-19 PCR. Chest X-ray performed on 08/09/20. Chest x-ray shows no acute findings. No change. Repeating Chest x-ray and ABG's. Medications include apixaban, dexamethasone, protonix, albuterol inhaler. Objective Vital Signs - 12hr 08/17/20 08/18/2008/18/21 22:57 05:18 05:23 Temperature 97.9 F 98.5 F Pulse Rate 74 66 66 Pulse Rate [ Anterior Bilateral Throughout] Respiratory 18 18 Rate Respiratory Rate [Anterior Bilateral Throughout] Blood Pressure 113/69 98/63 98/63 O2 Sat by Pulse 97 96 Oximetry 08/18/20 08/18/20 07:20 07:25 Temperature Pulse Rate Pulse Rate [ 77 Anterior Bilateral Throughout] Respiratory Rate Respiratory 18 Rate [Anterior Bilateral Throughout] Blood Pressure O2 Sat by Pulse 97 Oximetry Constitutional: no acute distress, alert Eyes: non-icteric ENT: oropharynx moist Neck: supple, no lymphadenopathy, no JVD Effort: mildly labored Ascultation: Bilateral: diminished breath sounds, wheezes (faint; R>L posteriorly) Percussion: Bilateral: not dull Cardiovascular: regular rate and rhythm (no mrg) Gastrointestinal: normoactive bowel sounds, soft, non-tender Integumentary: normal Extremities: no cyanosis, no edema, pulses normal, no ischemia or petechiae Neurologic: normal mental status, non-focal exam, pupils equal and round, motor strength normal and Psychiatric: mood appropriate, affect normal CBC and BMP: 08/17/20 09:40 08/18/20 05:44 ABG, PT/INR, D-dimer: ABG ABG pH 7.404 pH Units (7.350-7.450) 08/09/20 18:09 ABG pCO2 41.0 mm Hg 08/09/20 18:09 ABG pO2 258.0 mm Hg (80.0-90.0) H 08/09/20 18:09 ABG O2 Saturation 99.4 % (95.0-99.0) H 08/09/20 18:09 PT/INR, D-dimer PT 18.5 Sec. (12.2-14.9) H 08/15/20 18:36 INR 1.54 (0.87-1.13) H 08/15/20 18:36 D-Dimer 185.58 ng/mlDDU (0-234) 08/15/20 09:06 Abnormal lab findings: Abnormal Labs 08/09/20 08/09/20 08/09/20 10:05 17:22 17:22 WBC Hct Lymph % (Auto) Lymph # (Auto) Seg Neutrophils % Seg Neuts % (Manual) Lymphocytes % (Manual) 4.0 L Seg Neutrophils # Seg Neutrophils # Man Lymphocytes # (Manual) 0.3 L PT 16.8 H INR 1.38 H D-Dimer 243.07 H ABG pO2 ABG O2 Saturation Sodium BUN Glucose POC Glucose Hemoglobin A1c Magnesium Lactate Dehydrogenase Total Creatine Kinase C-Reactive Protein Total Protein Albumin Coronavirus (PCR) Positive A 08/09/20 08/09/20 08/09/20 17:22 17:22 17:22 WBC Hct Lymph % (Auto) Lymph # (Auto) Seg Neutrophils % Seg Neuts % (Manual) Lymphocytes % (Manual) Seg Neutrophils # Seg Neutrophils # Man Lymphocytes # (Manual) PT INR D-Dimer 243.07 H ABG pO2 ABG O2 Saturation Sodium BUN Glucose 228 H 233 H POC Glucose Hemoglobin A1c Magnesium 2.70 H Lactate Dehydrogenase 269 H 248 H Total Creatine Kinase 271 H C-Reactive Protein 2.00 H 2.10 H Total Protein Albumin Coronavirus (PCR) 08/09/20 08/09/20 08/10/20 18:09 23:22 00:10 WBC Hct Lymph % (Auto) Lymph # (Auto) Seg Neutrophils % Seg Neuts % (Manual) Lymphocytes % (Manual) Seg Neutrophils # Seg Neutrophils # Man Lymphocytes # (Manual) PT INR D-Dimer ABG pO2 258.0 H ABG O2 Saturation 99.4 H Sodium BUN Glucose POC Glucose 174 H Hemoglobin A1c 6.1 H Magnesium Lactate Dehydrogenase Total Creatine Kinase C-Reactive Protein Total Protein Albumin Coronavirus (PCR) 08/10/20 08/10/20 08/10/20 07:24 12:11 17:09 WBC Hct Lymph % (Auto) Lymph # (Auto) Seg Neutrophils % Seg Neuts % (Manual) Lymphocytes % (Manual) Seg Neutrophils # Seg Neutrophils # Man Lymphocytes # (Manual) PT INR D-Dimer ABG pO2 ABG O2 Saturation Sodium BUN Glucose POC Glucose 142 H 141 H 184 H Hemoglobin A1c Magnesium Lactate Dehydrogenase Total Creatine Kinase C-Reactive Protein Total Protein Albumin Coronavirus (PCR) 08/11/20 08/11/20 08/11/20 09:24 09:24 12:11 WBC 14.4 H Hct Lymph % (Auto) Lymph # (Auto) Seg Neutrophils % Seg Neuts % (Manual) 94.0 H Lymphocytes % (Manual) 6.0 L Seg Neutrophils # Seg Neutrophils # Man 13.5 H Lymphocytes # (Manual) 0.9 L PT INR D-Dimer ABG pO2 ABG O2 Saturation Sodium 134 L BUN 28 H Glucose 162 H POC Glucose 155 H Hemoglobin A1c Magnesium Lactate Dehydrogenase Total Creatine Kinase C-Reactive Protein Total Protein Albumin Coronavirus (PCR) 08/11/20 08/11/20 08/11/20 14:24 16:08 21:28 WBC Hct Lymph % (Auto) Lymph # (Auto) Seg Neutrophils % Seg Neuts % (Manual) Lymphocytes % (Manual) Seg Neutrophils # Seg Neutrophils # Man Lymphocytes # (Manual) PT INR D-Dimer ABG pO2 ABG O2 Saturation Sodium BUN 28 H Glucose 129 H POC Glucose 145 H 281 H Hemoglobin A1c Magnesium Lactate Dehydrogenase Total Creatine Kinase C-Reactive Protein Total Protein Albumin Coronavirus (PCR) 08/12/20 08/12/20 08/12/20 07:31 07:31 08:56 WBC 12.1 H Hct Lymph % (Auto) 8.0 L Lymph # (Auto) 1.0 L Seg Neutrophils % 88.0 H Seg Neuts % (Manual) Lymphocytes % (Manual) Seg Neutrophils # 10.7 H Seg Neutrophils # Man Lymphocytes # (Manual) PT INR D-Dimer ABG pO2 ABG O2 Saturation Sodium BUN 26 H Glucose 142 H POC Glucose 136 H Hemoglobin A1c Magnesium Lactate Dehydrogenase Total Creatine Kinase C-Reactive Protein Total Protein Albumin 3.7 L Coronavirus (PCR) 08/12/20 08/12/20 08/13/20 18:32 20:12 07:56 WBC Hct Lymph % (Auto) Lymph # (Auto) Seg Neutrophils % Seg Neuts % (Manual) Lymphocytes % (Manual) Seg Neutrophils # Seg Neutrophils # Man Lymphocytes # (Manual) PT INR D-Dimer ABG pO2 ABG O2 Saturation Sodium BUN 27 H Glucose 133 H POC Glucose 158 H 174 H Hemoglobin A1c Magnesium Lactate Dehydrogenase Total Creatine Kinase C-Reactive Protein Total Protein 5.7 L Albumin 3.4 L Coronavirus (PCR) 08/13/20 08/13/20 08/13/20 08:13 12:21 16:52 WBC Hct Lymph % (Auto) Lymph # (Auto) Seg Neutrophils % Seg Neuts % (Manual) Lymphocytes % (Manual) Seg Neutrophils # Seg Neutrophils # Man Lymphocytes # (Manual) PT INR D-Dimer ABG pO2 ABG O2 Saturation Sodium BUN Glucose POC Glucose 134 H 112 H 189 H Hemoglobin A1c Magnesium Lactate Dehydrogenase Total Creatine Kinase C-Reactive Protein Total Protein Albumin Coronavirus (PCR) 08/13/20 08/14/20 08/14/20 21:28 07:35 10:57 WBC Hct Lymph % (Auto) Lymph # (Auto) Seg Neutrophils % Seg Neuts % (Manual) Lymphocytes % (Manual) Seg Neutrophils # Seg Neutrophils # Man Lymphocytes # (Manual) PT INR D-Dimer ABG pO2 ABG O2 Saturation Sodium 135 L BUN 22 H Glucose 112 H POC Glucose 187 H 136 H Hemoglobin A1c Magnesium Lactate Dehydrogenase Total Creatine Kinase C-Reactive Protein Total Protein 6.0 L Albumin 3.6 L Coronavirus (PCR) 08/14/20 08/15/20 08/15/20 15:55 06:19 07:49 WBC Hct Lymph % (Auto) Lymph # (Auto) Seg Neutrophils % Seg Neuts % (Manual) Lymphocytes % (Manual) Seg Neutrophils # Seg Neutrophils # Man Lymphocytes # (Manual) PT INR D-Dimer ABG pO2 ABG O2 Saturation Sodium BUN Glucose POC Glucose 147 H 152 H 116 H Hemoglobin A1c Magnesium Lactate Dehydrogenase Total Creatine Kinase C-Reactive Protein Total Protein Albumin Coronavirus (PCR) 08/15/20 08/15/20 08/15/20 11:46 18:36 18:36 WBC 14.4 H Hct Lymph % (Auto) Lymph # (Auto) Seg Neutrophils % Seg Neuts % (Manual) Lymphocytes % (Manual) Seg Neutrophils # Seg Neutrophils # Man Lymphocytes # (Manual) PT 18.5 H INR 1.54 H D-Dimer ABG pO2 ABG O2 Saturation Sodium BUN Glucose POC Glucose 118 H Hemoglobin A1c Magnesium Lactate Dehydrogenase Total Creatine Kinase C-Reactive Protein Total Protein Albumin Coronavirus (PCR) 08/16/20 08/16/20 08/17/20 05:30 05:30 09:40 WBC 11.2 H 12.8 H Hct 43.1 H D Lymph % (Auto) Lymph # (Auto) Seg Neutrophils % 82.0 H Seg Neuts % (Manual) Lymphocytes % (Manual) Seg Neutrophils # 9.2 H Seg Neutrophils # Man Lymphocytes # (Manual) PT INR D-Dimer ABG pO2 ABG O2 Saturation Sodium 135 L BUN 28 H Glucose 176 H POC Glucose Hemoglobin A1c Magnesium Lactate Dehydrogenase Total Creatine Kinase C-Reactive Protein Total Protein Albumin Coronavirus (PCR) Allied health notes reviewed: nursing
[2020-08-18] MEDS: guaiFENesin 100 MG/5 ML ORAL LIQD PO PRN ×2 (11:32→21:10)
[2020-08-18] MEDS: oxyCODONE /ACETAMINOPHEN 5-325MG TAB PO PRN (11:32)
--- NOTE | 2020-08-18 12:18 | XRay Report ---
CHEST 2 VIEWS INDICATION: Follow up on pulmonary infiltrates and CHF. COMPARISON: 08/09/2020 FINDINGS: Support devices: None. Heart: Within normal limits. Lungs/pleura: No acute air space or interstitial disease. No pneumothorax. Additional findings: None. IMPRESSION: No acute findings. Unremarkable chest films. Signer Name: Petr Bran Jr, MD Signed: 08/18/2020 12:14 PM Workstation Name: [id number]
--- NOTE | 2020-08-18 12:45 | Electrocardiograph Report ---
[facility] Test Date: 2020-08-15 Test Time: 02:21:19 Pat Name: EDIE RENDON Department: Room: A354 Gender: F Head Machine Feeder: TAHMINA : [id number] Requested By: PARUL BARR Order Number: [id number] Reading MD: Niles Stokes Measurements Intervals [place] Rate: 132 P: MO: QRS: 29 QRSD: 88 T: 90 QT: 317 QTc: 470 Interpretive Statements Rapid atrial fibrillation Compared to ECG 08/09/2020 17:45:40 Sinus rhythm no longer present Electronically Signed On 08-18-2020 12:44:35 EDT by Niles Stokes
[2020-08-18] MEDS: LORazepam 0.5 MG TAB PO PRN (21:09)
[2020-08-18] MEDS: MONTELUKAST 10 MG TAB PO SCH (21:09)
[2020-08-19] MEDS: FUROSEMIDE 20 MG TAB PO SCH (05:36)
[2020-08-19] MEDS: GABAPENTIN 300 MG CAP PO SCH ×2 (05:36→13:53)
[2020-08-19] MEDS: METOPROLOL TARTRATE 25 MG TAB PO SCH ×2 (05:36→13:53)
[2020-08-19] MEDS: ARFORMOTEROL 15 MCG/2 ML NEBU IH SCH (08:42)
[2020-08-19] MEDS: BUDESONIDE 0.5 MG/2 ML NEBU IH SCH (08:42)
[2020-08-19] MEDS: IPRATROPIUM/ALBUTEROL SULFATE 3 ML AMPUL.NEB IH SCH (08:42)
--- NOTE | 2020-08-19 08:47 | Progress Note ---
Assessment and Plan Paroxysmal atrial fibrillation initiated on Eliquis; on metoprolol for suppression currently, she is sinus rhythm on telemetry TSH is normal at 0.422. COVID-19 infection Hx of Nonischemic CMP, resolving LVEF 45-50% by echo 09/2019. [facility] 12/2016: normal coronaries with EF 20%. Asthma Hypertension Diabetes Continue oral anticoagulation and beta blockers for paroxysmal atrial fibrillation. Subjective Date of service: 08/19/20 Principal diagnosis: Ac hypoxemic resp failure; AE-COPD; PAF; COVID-19 infection; CHF; DM II Interval history: Patient is resting in bed and appears comfortable. Currently, she is stable sinus rhythm on telemetry. Objective Vital Signs Temp Pulse Pulse Resp Resp BP Pulse Ox 08/19/20 04:48 97.8 F 60 18 105/62 96 08/18/20 22:31 98.2 F 74 18 106/63 98 08/18/20 20:07 96 08/18/20 20:05 71 18 08/18/20 16:30 78 18 08/18/20 12:03 98.6 F 81 20 111/78 96 - Physical Examination Narrative exam: Deferred due to isolation protocol. General: No Apparent Distress Cardiac: Positive: Reg Rate and Rhythm - Allied health notes Allied health notes reviewed: nursing
--- NOTE | 2020-08-19 09:34 | Discharge Summary ---
Providers - Providers Date of Admission: 08/11/20 08:55 Date of discharge: 08/19/20 Attending physician: FAMILIA SANTOS 08/11/20 09:32 Consult to Physician [CONS] Routine Comment: Consulting Provider: KYLER CANCHOLA Physician Instructions: Reason For Exam: COVID 08/15/20 02:34 Consult to Physician [CONS] Routine Comment: Consulting Provider: SARAH HANNAH Physician Instructions: Reason For Exam: a-fib Primary care physician: SURFACING TECHNICIAN Hospitalization Reason for admission: Acute hypoxic respiratory failure requiring BiPAP Condition: Stable Pertinent studies: Chest x-rayx2 Hospital course: 54-year-old female patient with multiple medical problems was admitted through emergency room with worsening shortness of breath of 2 days duration patient has history of, endotracheal intubation and mechanical ventilation as well as CPAP use in the past. Patient was in acute hypoxic respiratory failure requiring BiPAP, admitted to the hospital symptomatically managed, evaluated by pulmonary medications optimized. Patient was also noted to have A. fib with rapid ventri cular rate, cardiology evaluated the patient, medications optimized, since patient was high suspicion for Covid, placed in isolation and COVID-19 test was performed which was positive with severe pneumonia patient was placed in isolation managed per COVID-19 protocols ID evaluated the patient medications optimized patient received dexamethasone, remdesivir empiric antibiotics evaluated for home O2. Patient symptoms slowly but gradually improved. Today patient is comfortable no new complaints vital signs stable physical examination prior to discharge is unremarkable Patient was a started on Eliquis for anticoagulation due to atrial fibrillation, CM assisted with medications. Today patient is comfortable no new complaints vital signs stable physical examination prior to discharge is unremarkable. Stable at discharge. Saturating well on room air, no indication for home oxygen Discharge diagnosis; Acute respiratory failure with hypoxia Due to COVID-19 pneumonia. Patient is saturating well on room air. Asthma exacerbation Received oxygen nebulizers, at [place] patient is stable on room air A. fib with RVR Rate controlled and in sinus rhythm No beta-blockers due to hypotension, Continue Eliquis for chronic anticoagulation LVEF 40 to 45% 09/2019 Cardiology optimize medications COVID-19 pneumonia Patient tested positive on 08/09 Management per Covid 19 protocols and guidelines Patient received remdesivir, continue Solu-Medrol with tapering doses per pulmonary Saturating well on room air now, home oxygen evaluation prior to discharge. CHF (congestive heart failure) EF 40-45% 1 year ago October 04 Continue current management Will DC patient home this evening or tomorrow morning if stable Patient will have outpatient echo for most recent EF Obesity ; BMI 33.9 Patient needs weight reduction when medically stable hypertension BP in the lower range closely monitor. Diabetes 1.5, managed as type 2. Accu-Chek sliding scale coverage ADA diet Oral hypoglycemics insulin as needed Patient is stable at discharge Disposition: DC-01 TO HOME OR SELFCARE Final Discharge Diagnosis (Prints w/discharge instructions): Acute hypoxic respiratory failure. Acute asthma exacerbation. A. fib with rapid ventricular rate. COVID-19 pneumonia. Congestive heart failure. Hypertension. Type 2 diabetes mellitus. Obesity BMI 33.9 Time spent for discharge: 35 min Core Measure Documentation - Palliative Care Palliative Care/ Comfort Measures: Not Applicable - Core Measures Any of the following diagnoses?: none Exam - Constitutional Vitals: Temp Pulse Resp BP Pulse Ox 97.8 F 60 18 105/62 96 08/19/20 04:48 08/19/20 04:48 08/19/20 04:48 08/19/20 04:48 08/19/20 04:48 General appearance: Present: no acute distress, well-nourished - EENT Eyes: Present: PERRL, EOM intact - Neck Neck: Present: supple, normal ROM - Respiratory Respiratory effort: normal Respiratory: bilateral: diminished, negative: rales, rhonchi, wheezing - Cardiovascular Rhythm: regular Heart Sounds: Present: S1 & S2 - Extremities Extremities: no ischemia, No edema - Abdominal General gastrointestinal: Present: soft, non-tender, non-distended, normal bowel sounds - Integumentary Integumentary: Present: clear, warm - Musculoskeletal Musculoskeletal: strength equal bilaterally, other - Psychiatric Psychiatric: appropriate mood/affect, cooperative - Neurologic Neurologic: CNII-XII intact, moves all extremities Plan Activity: advance as tolerated Diet: other (Cardiac diet) Additional Instructions: Advised to follow isolation precautions and COVID-19 protocols as instructed to you by discharge nurse. If you have worsening symptoms contact MD or go to emergency room. Strongly advised to comply with medications, diet and follow-up visits per schedule Follow up with: PRIMARY KENNY, [Primary Care Provider] - 3-5 Days GUNNAR PATINO MD [Staff Physician] - 7 Days SARAH HANNAH MD [Staff Physician] - 7 Days Forms: Work/School Release Form Prescriptions: Arformoterol Nebu [Brovana Nebu] 15 mcg IH Q12HRT 30 Days ml Apixaban [Eliquis] 5 mg PO Q12HR #60 tablet Metoprolol [Lopressor TAB] 25 mg PO Q8HR #90 tablet Prednisone [predniSONE 5 mg (6-Day Pack, 21 Tabs)] 5 mg PO .TAPER #1 tab.ds.pk Budesonide [Pulmicort Respules] 0.5 mg IH Q12HRT 30 Days nebu guaiFENesin [Robitussin] 200 mg PO Q6H PRN #1 bottle PRN Reason: Cough Ascorbic Acid [Vitamin C] 500 mg PO BID #30 tablet Zinc Sulfate 220 mg PO QDAY #30 capsule Other Discharge Orders: Nebulizer (Amb) Location: None Selected
[2020-08-19] MEDS: PANTOPRAZOLE 40 MG TAB PO SCH (10:04)
[2020-08-19] MEDS: guaiFENesin 100 MG/5 ML ORAL LIQD PO PRN (10:04)
[2020-08-19] MEDS: APIXABAN 5 MG TAB PO SCH (10:04)
[2020-08-19] MEDS: ZINC SULFATE 220 MG CAP PO SCH (10:04)
[2020-08-19] MEDS: FLUTICASONE PROPIONATE NASAL SPRAY 16 GM NS SCH (10:04)
[2020-08-19] MEDS: ASCORBIC ACID 500 MG TAB PO SCH (10:04)
[2020-08-19] MEDS: methylPREDNISolone Sod Succinate 40 MG/1 ML INJ IV SCH (10:04)
[2020-08-19] MEDS: metFORMIN 500 MG TAB PO SCH (10:05)
[2020-08-19] MEDS: oxyCODONE /ACETAMINOPHEN 5-325MG TAB PO PRN (10:36)
[2020-08-19 13:24] VITALS: BP 100/73
--- NOTE | 2020-08-19 17:00 | Progress Note ---
Assessment and Plan - Patient Problems (1) Acute respiratory failure with hypoxia Status: Acute (2) COPD with exacerbation Status: Acute (3) Diabetes 1.5, managed as type 2 Status: Acute (4) Suspected 2019 novel coronavirus infection Status: Acute (5) GERD (gastroesophageal reflux disease) Status: Chronic Qualifiers: Esophagitis presence: without esophagitis Qualified Code(s): K21.9 - Gastro-esophageal reflux disease without esophagitis (6) HTN (hypertension) Status: Chronic Qualifiers: Hypertension type: unspecified Qualified Code(s): I10 - Essential (primary) hypertension Subjective Date of service: 08/19/20 Principal diagnosis: Ac hypoxemic resp failure; AE-COPD; PAF; COVID-19 infection; CHF; DM II Interval history: Patient already left before i see her. Objective Vital Signs - 12hr 08/19/20 08/19/20 08/19/20 08:25 08:40 11:51 Temperature 99.4 F Pulse Rate 81 Pulse Rate [ 80 Anterior Bilateral Throughout] Respiratory 16 Rate Respiratory 18 Rate [Anterior Bilateral Throughout] Blood Pressure 100/73 O2 Sat by Pulse 96 96 Oximetry Effort: mildly labored Extremities: pulses normal, no ischemia or petechiae CBC and BMP: 08/17/20 09:40 08/18/20 05:44 ABG, PT/INR, D-dimer: ABG ABG pH 7.487 (7.320-7.450) H 08/18/20 11:53 POC ABG pCO2 38.5 mmHg (32.0-48.0) 08/18/20 11:53 ABG pCO2 41.0 mm Hg 08/09/20 18:09 POC ABG pO2 97.8 mmHg (83-108) 08/18/20 11:53 ABG pO2 258.0 mm Hg (80.0-90.0) H 08/09/20 18:09 POC ABG HCO3 28.5 08/18/20 11:53 ABG O2 Saturation 92.6 (0-100) 08/18/20 11:53 PT/INR, D-dimer PT 18.5 Sec. (12.2-14.9) H 08/15/20 18:36 INR 1.54 (0.87-1.13) H 08/15/20 18:36 D-Dimer 185.58 ng/mlDDU (0-234) 08/15/20 09:06 Abnormal lab findings: Abnormal Labs 08/09/20 08/09/20 08/09/20 10:05 17:22 17:22 WBC Hct Lymph % (Auto) Lymph # (Auto) Seg Neutrophils % Seg Neuts % (Manual) Lymphocytes % (Manual) 4.0 L Seg Neutrophils # Seg Neutrophils # Man Lymphocytes # (Manual) 0.3 L PT 16.8 H INR 1.38 H D-Dimer 243.07 H ABG pH ABG pO2 ABG O2 Saturation ABG Oxyhemoglobin ABG Sodium ABG Potassium ABG Glucose Sodium BUN Glucose POC Glucose Hemoglobin A1c Magnesium Lactate Dehydrogenase Total Creatine Kinase C-Reactive Protein Total Protein Albumin Arterial Blood Glucose Coronavirus (PCR) Positive A 08/09/20 08/09/20 08/09/20 17:22 17:22 17:22 WBC Hct Lymph % (Auto) Lymph # (Auto) Seg Neutrophils % Seg Neuts % (Manual) Lymphocytes % (Manual) Seg Neutrophils # Seg Neutrophils # Man Lymphocytes # (Manual) PT INR D-Dimer 243.07 H ABG pH ABG pO2 ABG O2 Saturation ABG Oxyhemoglobin ABG Sodium ABG Potassium ABG Glucose Sodium BUN Glucose 228 H 233 H POC Glucose Hemoglobin A1c Magnesium 2.70 H Lactate Dehydrogenase 269 H 248 H Total Creatine Kinase 271 H C-Reactive Protein 2.00 H 2.10 H Total Protein Albumin Arterial Blood Glucose Coronavirus (PCR) 08/09/20 08/09/20 08/10/20 18:09 23:22 00:10 WBC Hct Lymph % (Auto) Lymph # (Auto) Seg Neutrophils % Seg Neuts % (Manual) Lymphocytes % (Manual) Seg Neutrophils # Seg Neutrophils # Man Lymphocytes # (Manual) PT INR D-Dimer ABG pH ABG pO2 258.0 H ABG O2 Saturation 99.4 H ABG Oxyhemoglobin ABG Sodium ABG Potassium ABG Glucose Sodium BUN Glucose POC Glucose 174 H Hemoglobin A1c 6.1 H Magnesium Lactate Dehydrogenase Total Creatine Kinase C-Reactive Protein Total Protein Albumin Arterial Blood Glucose Coronavirus (PCR) 08/10/20 08/10/20 08/10/20 07:24 12:11 17:09 WBC Hct Lymph % (Auto) Lymph # (Auto) Seg Neutrophils % Seg Neuts % (Manual) Lymphocytes % (Manual) Seg Neutrophils # Seg Neutrophils # Man Lymphocytes # (Manual) PT INR D-Dimer ABG pH ABG pO2 ABG O2 Saturation ABG Oxyhemoglobin ABG Sodium ABG Potassium ABG Glucose Sodium BUN Glucose POC Glucose 142 H 141 H 184 H Hemoglobin A1c Magnesium Lactate Dehydrogenase Total Creatine Kinase C-Reactive Protein Total Protein Albumin Arterial Blood Glucose Coronavirus (PCR) 08/11/20 08/11/20 08/11/20 09:24 09:24 12:11 WBC 14.4 H Hct Lymph % (Auto) Lymph # (Auto) Seg Neutrophils % Seg Neuts % (Manual) 94.0 H Lymphocytes % (Manual) 6.0 L Seg Neutrophils # Seg Neutrophils # Man 13.5 H Lymphocytes # (Manual) 0.9 L PT INR D-Dimer ABG pH ABG pO2 ABG O2 Saturation ABG Oxyhemoglobin ABG Sodium ABG Potassium ABG Glucose Sodium 134 L BUN 28 H Glucose 162 H POC Glucose 155 H Hemoglobin A1c Magnesium Lactate Dehydrogenase Total Creatine Kinase C-Reactive Protein Total Protein Albumin Arterial Blood Glucose Coronavirus (PCR) 08/11/20 08/11/20 08/11/20 14:24 16:08 21:28 WBC Hct Lymph % (Auto) Lymph # (Auto) Seg Neutrophils % Seg Neuts % (Manual) Lymphocytes % (Manual) Seg Neutrophils # Seg Neutrophils # Man Lymphocytes # (Manual) PT INR D-Dimer ABG pH ABG pO2 ABG O2 Saturation ABG Oxyhemoglobin ABG Sodium ABG Potassium ABG Glucose Sodium BUN 28 H Glucose 129 H POC Glucose 145 H 281 H Hemoglobin A1c Magnesium Lactate Dehydrogenase Total Creatine Kinase C-Reactive Protein Total Protein Albumin Arterial Blood Glucose Coronavirus (PCR) 08/12/20 08/12/20 08/12/20 07:31 07:31 08:56 WBC 12.1 H Hct Lymph % (Auto) 8.0 L Lymph # (Auto) 1.0 L Seg Neutrophils % 88.0 H Seg Neuts % (Manual) Lymphocytes % (Manual) Seg Neutrophils # 10.7 H Seg Neutrophils # Man Lymphocytes # (Manual) PT INR D-Dimer ABG pH ABG pO2 ABG O2 Saturation ABG Oxyhemoglobin ABG Sodium ABG Potassium ABG Glucose Sodium BUN 26 H Glucose 142 H POC Glucose 136 H Hemoglobin A1c Magnesium Lactate Dehydrogenase Total Creatine Kinase C-Reactive Protein Total Protein Albumin 3.7 L Arterial Blood Glucose Coronavirus (PCR) 08/12/20 08/12/2021 18:32 20:12 07:56 WBC Hct Lymph % (Auto) Lymph # (Auto) Seg Neutrophils % Seg Neuts % (Manual) Lymphocytes % (Manual) Seg Neutrophils # Seg Neutrophils # Man Lymphocytes # (Manual) PT INR D-Dimer ABG pH ABG pO2 ABG O2 Saturation ABG Oxyhemoglobin ABG Sodium ABG Potassium ABG Glucose Sodium BUN 27 H Glucose 133 H POC Glucose 158 H 174 H Hemoglobin A1c Magnesium Lactate Dehydrogenase Total Creatine Kinase C-Reactive Protein Total Protein 5.7 L Albumin 3.4 L Arterial Blood Glucose Coronavirus (PCR) 08/13/20 08/13/20 08/13/20 08:13 12:21 16:52 WBC Hct Lymph % (Auto) Lymph # (Auto) Seg Neutrophils % Seg Neuts % (Manual) Lymphocytes % (Manual) Seg Neutrophils # Seg Neutrophils # Man Lymphocytes # (Manual) PT INR D-Dimer ABG pH ABG pO2 ABG O2 Saturation ABG Oxyhemoglobin ABG Sodium ABG Potassium ABG Glucose Sodium BUN Glucose POC Glucose 134 H 112 H 189 H Hemoglobin A1c Magnesium Lactate Dehydrogenase Total Creatine Kinase C-Reactive Protein Total Protein Albumin Arterial Blood Glucose Coronavirus (PCR) 08/13/20 08/14/20 08/14/20 21:28 07:35 10:57 WBC Hct Lymph % (Auto) Lymph # (Auto) Seg Neutrophils % Seg Neuts % (Manual) Lymphocytes % (Manual) Seg Neutrophils # Seg Neutrophils # Man Lymphocytes # (Manual) PT INR D-Dimer ABG pH ABG pO2 ABG O2 Saturation ABG Oxyhemoglobin ABG Sodium ABG Potassium ABG Glucose Sodium 135 L BUN 22 H Glucose 112 H POC Glucose 187 H 136 H Hemoglobin A1c Magnesium Lactate Dehydrogenase Total Creatine Kinase C-Reactive Protein Total Protein 6.0 L Albumin 3.6 L Arterial Blood Glucose Coronavirus (PCR) 08/14/20 08/15/20 08/15/20 15:55 06:19 07:49 WBC Hct Lymph % (Auto) Lymph # (Auto) Seg Neutrophils % Seg Neuts % (Manual) Lymphocytes % (Manual) Seg Neutrophils # Seg Neutrophils # Man Lymphocytes # (Manual) PT INR D-Dimer ABG pH ABG pO2 ABG O2 Saturation ABG Oxyhemoglobin ABG Sodium ABG Potassium ABG Glucose Sodium BUN Glucose POC Glucose 147 H 152 H 116 H Hemoglobin A1c Magnesium Lactate Dehydrogenase Total Creatine Kinase C-Reactive Protein Total Protein Albumin Arterial Blood Glucose Coronavirus (PCR) 08/15/20 08/15/20 08/15/20 11:46 18:36 18:36 WBC 14.4 H Hct Lymph % (Auto) Lymph # (Auto) Seg Neutrophils % Seg Neuts % (Manual) Lymphocytes % (Manual) Seg Neutrophils # Seg Neutrophils # Man Lymphocytes # (Manual) PT 18.5 H INR 1.54 H D-Dimer ABG pH ABG pO2 ABG O2 Saturation ABG Oxyhemoglobin ABG Sodium ABG Potassium ABG Glucose Sodium BUN Glucose POC Glucose 118 H Hemoglobin A1c Magnesium Lactate Dehydrogenase Total Creatine Kinase C-Reactive Protein Total Protein Albumin Arterial Blood Glucose Coronavirus (PCR) 08/16/20 08/16/20 08/17/20 05:30 05:30 09:40 WBC 11.2 H 12.8 H Hct 43.1 H D Lymph % (Auto) Lymph # (Auto) Seg Neutrophils % 82.0 H Seg Neuts % (Manual) Lymphocytes % (Manual) Seg Neutrophils # 9.2 H Seg Neutrophils # Man Lymphocytes # (Manual) PT INR D-Dimer ABG pH ABG pO2 ABG O2 Saturation ABG Oxyhemoglobin ABG Sodium ABG Potassium ABG Glucose Sodium 135 L BUN 28 H Glucose 176 H POC Glucose Hemoglobin A1c Magnesium Lactate Dehydrogenase Total Creatine Kinase C-Reactive Protein Total Protein Albumin Arterial Blood Glucose Coronavirus (PCR) 08/18/20 11:53 WBC Hct Lymph % (Auto) Lymph # (Auto) Seg Neutrophils % Seg Neuts % (Manual) Lymphocytes % (Manual) Seg Neutrophils # Seg Neutrophils # Man Lymphocytes # (Manual) PT INR D-Dimer ABG pH 7.487 H ABG pO2 ABG O2 Saturation ABG Oxyhemoglobin 91.8 L ABG Sodium 132.2 L ABG Potassium 4.8 H ABG Glucose 121 H Sodium BUN Glucose POC Glucose Hemoglobin A1c Magnesium Lactate Dehydrogenase Total Creatine Kinase C-Reactive Protein Total Protein Albumin Arterial Blood Glucose 121 H Coronavirus (PCR) Allied health notes reviewed: nursing
== END 2020-08-19 16:39 | disposition home or self-care (01) | DRG 177 ==
LOC: ED 16:42 → 3A 19:41 → INTOOBSV 21:53 → UNDOADMOB 21:53 → 3A 22:30 → OBSVTOIN 08-11 08:55 → IMCU 08-15 14:57 → 3A 08-16 12:50
PROVIDERS: ADMIT Internal Medicine; ATTEND Internal Medicine
PROC: 4A033R1 Measurement of Arterial Saturation, Peripheral, Percutaneous Approach (ICD-10-PCS; principal; 2020-08-09)
PROC: 5A09557 Assistance with Respiratory Ventilation, Greater than 96 Consecutive Hours, Continuous Positive Airway Pressure (ICD-10-PCS; 2020-08-09)
PROC: XW033E5 Introduction of Remdesivir Anti-infective into Peripheral Vein, Percutaneous Approach, New Technology Group 5 (ICD-10-PCS; 2020-08-13)
PROC: 5A09457 Assistance with Respiratory Ventilation, 24-96 Consecutive Hours, Continuous Positive Airway Pressure (ICD-10-PCS; 2020-08-15)
DX: U07.1 COVID-19 (principal); J12.82 Pneumonia due to coronavirus disease 2019; J96.01 Acute respiratory failure with hypoxia; J45.901 Unspecified asthma with (acute) exacerbation; J44.1 Chronic obstructive pulmonary disease with (acute) exacerbation; J44.0 Chronic obstructive pulmonary disease with (acute) lower respiratory infection; I50.42 Chronic combined systolic (congestive) and diastolic (congestive) heart failure; I48.91 Unspecified atrial fibrillation; I11.0 Hypertensive heart disease with heart failure; F41.9 Anxiety disorder, unspecified; E11.42 Type 2 diabetes mellitus with diabetic polyneuropathy; D72.829 Elevated white blood cell count, unspecified; M81.0 Age-related osteoporosis without current pathological fracture; E66.9 Obesity, unspecified; K21.9 Gastro-esophageal reflux disease without esophagitis; M19.90 Unspecified osteoarthritis, unspecified site; Z68.31 Body mass index [BMI] 31.0-31.9, adult; Z79.84 Long term (current) use of oral hypoglycemic drugs; Z79.899 Other long term (current) drug therapy; Z79.891 Long term (current) use of opiate analgesic; Z79.82 Long term (current) use of aspirin; Z88.8 Allergy status to other drugs, medicaments and biological substances; Z88.1 Allergy status to other antibiotic agents; Z91.018 Allergy to other foods; Z88.0 Allergy status to penicillin; Z91.013 Allergy to seafood; Z98.49 Cataract extraction status, unspecified eye; Z98.51 Tubal ligation status
CPT/HCPCS: 36415; 36600; 71045; 71046; 80048; 80053; 82140; 82550; 82565; 82728; 82803; 82805; 82947; 82962; 83036; 83615; 83735; 83880; 84145; 84443; 84484; 85007; 85025; 85027; 85379; 85610; 85730; 86140; 87040; 93005; 94640; 94644; 94660; G0378; J1644; J1956; J2920; J2930; J7040; J7050; U0003

== ENCOUNTER 2020-09-14 12:19 | Emergency (ER) | payer MEDICARE ==
[2020-09-14 12:40] VITALS: BP 133/79
--- NOTE | 2020-09-14 14:14 | Event Note ---
ED Screening Note Date of service: 09/14/20 Time: 14:11 ED Screening Note: 55-year-old female patient with history of glaucoma, cataract surgery, diabetes, and hypertension presents to the emergency department with complaints of painful unilateral visual disturbance progressively worsening for approximately 5 days. Patient states she has been seen by ophthalmology multiple times and started on several different types of eyedrops, which seem to have only made her pain and vision worse. Symptoms began in both eyes but her right eye seems to have improved. She describes the visual deficit in her left eye as "like someone is taking a brown marker and coloring up and down in the middle part of my vision." Additionally, while patient was on her way to the emergency department for evaluation of her vision problems, she twisted her left ankle. General: Awake, appropriately interactive, no acute distress. Neck: Supple. Full range of motion intact. Cardiovascular: Normal peripheral perfusion. Pulmonary: No respiratory distress. Patient is speaking normally without use of accessory muscles. Skin: No apparent rashes or lesions. Neurological: No facial asymmetry. Speech is clear. Follows commands. Patient is alert and oriented. Musculoskeletal: Moves all four extremities spontaneously with normal range of motion. Psych: Cooperative. Appropriate mood and affect. I have greeted and performed a focused rapid initial assessment of this patient. A comprehensive ED assessment and evaluation of the patient, analysis of all test results, and completion of the medical decision-making process will be conducted by additional ED providers. This initial assessment/diagnostic orde rs/clinical plan/treatment(s) is/are subject to change based on patients health status, clinical progression and re-assessment. Further treatment and workup at subsequent clinical provider's discretion. Patient/guardian urged not to elope from the ED as their condition may be serious if not clinically assessed and managed.
--- NOTE | 2020-09-14 14:49 | XRay Report ---
LEFT ANKLE 3 VIEWS INDICATION / CLINICAL INFORMATION: Twisted ankle while getting out of the car with left ankle pain. COMPARISON: None available. FINDINGS: BONES / JOINT(S): No acute fracture or subluxation. No significant arthritis. SOFT TISSUES: No significant abnormality. ADDITIONAL FINDINGS: None. Signer Name: Joshua Hinton MD Signed: 09/14/2020 2:45 PM Workstation Name: [id number]
[2020-09-14] MEDS ORDERED: FLUORESCEIN 1 MG STRIP OP ONE (17:48)
[2020-09-14] MEDS ORDERED: TETRACAINE 0.5% OPHTH SOLN 4ML OU PRN (17:48)
--- NOTE | 2020-09-14 18:37 | Emergency Department Report ---
ED Eye Problem HPI - General Chief complaint: Eye Problems Stated complaint: ANKLE INJURY/BLURR VISION Time Seen by Provider: 09/14/20 16:24 Source: patient Mode of arrival: Wheelchair Limitations: Other - History of Present Illness Initial comments: 55-year-old female presents to ED with complaint of vision problems. Patient reports history of cataracts and glaucoma. Patient states starting 1.5 weeks ago, she began having issues with her prescribed eyedrops. Patient states she began developing swelling, pain, redness in bilateral eyes. Last week on Monday, 5 days ago, patient reports she saw her display fabricator and was given a new eyedrop. Patient use the eyedrop and stated that it caused even worse pain, swelling, redness so she returned the next day. She was given a different eyedrop on . When she tried that eyedrop she had the same painful results. Patient states she returned again on Monday to her eye doctor and was given another eyedrop. Patient states this medication seemed to help her symptoms. States her redness, pain and swelling have improved, however, on Monday, 2 days ago she began to develop visual disturbance in the left eye. Patient states she can see well out of the right eye. However, in the left eye, her peripheral vision is normal, but the rest of her visual field in the left eye has a yellowish/brownish color over everything which is causing difficulty with her vision. Patient states she decided to wait until Monday, today, to call the doctor's office because she knew they would be open. Patient states she called her eye doctor's office today, but did not get an answer. Patient then drove to the office, and that is when patient realized they were closed for , so patient decided to come to the ER. Patient denies any headache, eye pain, nausea or vomiting. When getting out of her car she also twisted her left ankle, so she is also complaining of left ankle pain. - Related Data Home Medications Medication Instructions Recorded Confirmed Last Taken metFORMIN [Glucophage] 500 mg PO QDAY 02/05/20 08/18/20 Unknown Previous Rx's Medication Instructions Recorded Last Taken Type Furosemide [Lasix TAB] 20 mg PO DAILY@0600 #30 tablet 01/06/20 Unknown Rx Gabapentin 300 mg PO Q8HR #90 capsule 09/21/20 Unknown Rx Montelukast [Singulair] 10 mg PO QHS #30 tablet 01/06/20 Unknown Rx Pantoprazole [Protonix TAB] 40 mg PO QDAY #30 tablet 03/07/20 Unknown Rx Albuterol Mdi (or & Nicu Only) 2 puff IH QID PRN #1 inhalation 03/08/20 Unknown Rx [ProAir HFA Inhaler] Fluticasone [Flonase] 1 spray NS QDAY #1 bottle 05/07/20 Unknown Rx Ipratropium/Albuterol Sulfate 1 ampul IH Q6HR #1 box 05/07/20 Unknown Rx [DUONEB *Not for PRN Use*] Albuterol Sulfate [Proventil Hfa] 2 puff IH Q4HR PRN #1 hfa.aer.ad 05/18/20 Unknown Rx Apixaban [Eliquis] 5 mg PO Q12HR #60 tablet 08/19/20 Unknown Rx Arformoterol Nebu [Brovana Nebu] 15 mcg IH Q12HRT 30 Days ml 08/19/20 Unknown Rx Ascorbic Acid [Vitamin C] 500 mg PO BID #30 tablet 08/19/20 Unknown Rx Budesonide [Pulmicort Respules] 0.5 mg IH Q12HRT 30 Days nebu 08/19/20 Unknown Rx Metoprolol [Lopressor TAB] 25 mg PO Q8HR #90 tablet 08/19/20 Unknown Rx Prednisone [predniSONE 5 mg (6-Day 5 mg PO .TAPER #1 tab.ds.pk 08/19/20 Unknown Rx Pack, 21 Tabs)] Zinc Sulfate 220 mg PO QDAY #30 capsule 08/19/20 Unknown Rx guaiFENesin [Robitussin] 200 mg PO Q6H PRN #1 bottle 08/19/20 Unknown Rx Allergies Allergy/AdvReac Type Severity Reaction Status Date / Time amoxicillin Allergy Anaphylaxis Verified 09/14/20 12:35 Penicillins Allergy Rash Verified 09/14/20 12:35 seafood Allergy Severe Anaphylaxis Uncoded 03/16/17 01:08 peanuts Allergy Anaphylaxis Uncoded 09/20/19 12:06 ED Review of Systems ROS: Stated complaint: ANKLE INJURY/BLURR VISION Other details as noted in HPI Comment: All other systems reviewed and negative Eyes: as per HPI, vision change. denies: eye pain, eye discharge Gastrointestinal: denies: nausea, vomiting Neurological: denies: headache ED Past Medical Hx - Past Medical History Hx Hypertension: Yes Hx Heart Attack/AMI: No Hx Congestive Heart Failure: Yes Hx Diabetes: Yes Hx Pulmonary Embolism: No Hx GERD: Yes Hx Liver Disease: No Hx Renal Disease: No Hx Sickle Cell Disease: No Hx Arthritis: Yes Hx Headaches / Migraines: No Hx Seizures: No Hx Kidney Stones: No Hx Psychiatric Treatment: Yes (Anxiety) Hx Asthma: Yes Hx COPD: Yes Hx Tuberculosis: No Hx HIV: No Additional medical history: Intubated x 9. heart murmur. osteoporosis. hearing loss in [place] - Surgical History Hx Coronary Stent: No Hx Open Heart Surgery: No Hx Pacemaker: No Hx Internal Defibrillator: No Hx Cholecystectomy: No Hx Appendectomy: No Hx Breast Surgery: No Additional Surgical History: cataracts, nasal surg, tubal ligation. bilateral foot. Left shoulder surgery, R. knee sx - Social History Smoking Status: Never Smoker Substance Use Type: None - Medications Home Medications: Home Medications Medication Instructions Recorded Confirmed Last Taken Type Furosemide [Lasix TAB] 20 mg PO DAILY@0600 #30 tablet 01/06/20 08/18/20 Unknown Rx Gabapentin 300 mg PO Q8HR #90 capsule 01/06/20 08/18/20 Unknown Rx Montelukast [Singulair] 10 mg PO QHS #30 tablet 01/06/20 08/18/20 Unknown Rx metFORMIN [Glucophage] 500 mg PO QDAY 02/05/20 08/18/20 Unknown History Pantoprazole [Protonix TAB] 40 mg PO QDAY #30 tablet 03/07/20 08/18/20 Unknown Rx Albuterol Mdi (or & Nicu Only) 2 puff IH QID PRN #1 inhalation 03/08/20 08/18/20 Unknown Rx [ProAir HFA Inhaler] Fluticasone [Flonase] 1 spray NS QDAY #1 bottle 05/07/20 08/18/20 Unknown Rx Ipratropium/Albuterol Sulfate 1 ampul IH Q6HR #1 box 05/07/20 08/18/20 Unknown Rx [DUONEB *Not for PRN Use*] Albuterol Sulfate [Proventil Hfa] 2 puff IH Q4HR PRN #1 hfa.aer.ad 05/18/20 08/18/20 Unknown Rx Apixaban [Eliquis] 5 mg PO Q12HR #60 tablet 08/19/20 Unknown Rx Arformoterol Nebu [Brovana Nebu] 15 mcg IH Q12HRT 30 Days ml 08/19/20 Unknown Rx Ascorbic Acid [Vitamin C] 500 mg PO BID #30 tablet 08/19/20 Unknown Rx Budesonide [Pulmicort Respules] 0.5 mg IH Q12HRT 30 Days nebu 08/19/20 Unknown Rx Metoprolol [Lopressor TAB] 25 mg PO Q8HR #90 tablet 08/19/20 Unknown Rx Prednisone [predniSONE 5 mg (6-Day 5 mg PO .TAPER #1 tab.ds.pk 08/19/20 Unknown Rx Pack, 21 Tabs)] Zinc Sulfate 220 mg PO QDAY #30 capsule 08/19/20 Unknown Rx guaiFENesin [Robitussin] 200 mg PO Q6H PRN #1 bottle 08/19/20 Unknown Rx ED Physical Exam - General Limitations: Other General appearance: alert, in no apparent distress - Head Head exam: Present: atraumatic, normocephalic - Eye Eye exam: Present: normal appearance, PERRL, EOMI, conjunctival injection (Mild bilaterally), other (Patient refused tetracaine drops, fluorescein, and Sanchez lamp examination) Pupils: Present: other. Absent: irregular, unequal (Pupils are equal) - ENT ENT exam: Present: mucous membranes moist - Neck Neck exam: Present: normal inspection - Respiratory Respiratory exam: Present: normal lung sounds bilaterally. Absent: respiratory distress - Cardiovascular Cardiovascular Exam: Present: regular rate, normal rhythm - GI/Abdominal GI/Abdominal exam: Present: soft. Absent: distended, tenderness - Extremities Exam Extremities exam: Present: normal inspection, other (No swelling to the left ankle, mild tenderness to the lateral aspect of the left ankle) - Neurological Exam Neurological exam: Present: alert, oriented X3 - Psychiatric Psychiatric exam: Present: normal affect, normal mood - Skin Skin exam: Present: warm, dry, intact, normal color ED Course Vital Signs 09/14/20 12:35 Temperature 98 F Pulse Rate 72 Respiratory 18 Rate Blood Pressure 133/79 O2 Sat by Pulse 97 Oximetry ED Medical Decision Making - Medical Decision Making 55-year-old female presents to ED with visual disturbance to the left eye, ongoing x3 days. Patient states over the last 1.5 weeks she has been having issues with both of her eyes, necessitating repeat visits to her eye doctor. I attempted to perform Sanchez lamp and Errol-Pen examination of patient, however she states she has multiple allergies and due to the issues that she had last week with eyedrops, she is afraid to put anything else in her eye. Patient states she prefers to just go and see her doctor tomorrow when the office opens. Critical care attestation.: If time is entered above; I have spent that time in minutes in the direct care of this critically ill patient, excluding procedure time. ED Disposition Clinical Impression: Left ankle sprain, Subjective visual disturbance, left eye Disposition: DC- TO HOME OR SELFCARE Is pt being admited?: No Condition: Stable Instructions: Ankle Sprain, [id number], Visual Disturbances Referrals: PRIMARY CARE, [Primary Care Provider] - [facility] Time of Disposition: 18:37
== END 2020-09-14 19:05 | disposition home or self-care (01) ==
LOC: ED 12:19
DX: S93.402A Sprain of unspecified ligament of left ankle, initial encounter (principal); H53.9 Unspecified visual disturbance; I11.0 Hypertensive heart disease with heart failure; I50.9 Heart failure, unspecified; E11.9 Type 2 diabetes mellitus without complications; K21.9 Gastro-esophageal reflux disease without esophagitis; M19.91 Primary osteoarthritis, unspecified site; F41.9 Anxiety disorder, unspecified; J44.9 Chronic obstructive pulmonary disease, unspecified; Z98.890 Other specified postprocedural states; Z79.899 Other long term (current) drug therapy; Z88.1 Allergy status to other antibiotic agents; Z88.0 Allergy status to penicillin; Z91.013 Allergy to seafood; Z88.8 Allergy status to other drugs, medicaments and biological substances; X50.1XXA Overexertion from prolonged static or awkward postures, initial encounter; Y93.89 Activity, other specified; Y92.89 Other specified places as the place of occurrence of the external cause; Y99.8 Other external cause status

== ENCOUNTER 2020-09-20 18:07 | Emergency (ER) | payer MEDICARE ==
--- NOTE | 2020-09-20 19:32 | Event Note ---
ED Screening Note Date of service: 09/20/20 Time: 19:29 ED Screening Note: 55-year-old female patient with history of hypertension, diabetes, emphysema, congestive heart failure, COVID-19, and recurrent acute respiratory failure requiring intubation on 9 previous occasions presents to the emergency department with complaints of chest tightness, shortness of breath, and productive cough starting today. Patient states she was recently taken off of several of her antihypertensive and glycemic control medications during her last hospitalization in July. No current steroid or antibiotic use. General: Awake, appropriately interactive, no acute distress. Neck: Supple. Full range of motion intact. Cardiovascular: Normal peripheral perfusion. Pulmonary: No respiratory distress. Patient is speaking normally without use of accessory muscles. Skin: No apparent rashes or lesions. Neurological: No facial asymmetry. Speech is clear. Follows commands. Patient is alert and oriented. Musculoskeletal: Moves all four extremities spontaneously with normal range of motion. Psych: Cooperative. Appropriate mood and affect. I have greeted and performed a focused rapid initial assessment of this patient. A comprehensive ED assessment and evaluation of the patient, analysis of all test results, and completion of the medical decision-making process will be conducted by additional ED providers. This initial assessment/diagnostic orders/clinical plan/treatment(s) is/are subject to change based on patients health status, clinical progression and re-assessment. Further treatment and workup at subsequent clinical provider's discretion. Patient/guardian urged not to elope from the ED as their condition may be serious if not clinically assessed and managed.
--- NOTE | 2020-09-20 20:14 | XRay Report ---
CHEST 2 VIEWS INDICATION / CLINICAL INFORMATION: productive cough/SOB; hx COPD. COMPARISON: 08/18/2020 FINDINGS: SUPPORT DEVICES: None. HEART / MEDIASTINUM: Stable. LUNGS / PLEURA: No significant pulmonary or pleural abnormality. No pneumothorax. Specifically, no ev idence of confluent of [place] or pleural effusions. ADDITIONAL FINDINGS: No significant additional findings. IMPRESSION: 1. No acute findings. No significant interval change since 08/18/2020. Signer Name: Jalen Costello MD Signed: 09/20/2020 8:10 PM Workstation Name: [id number]
[2020-09-20] MEDS ORDERED: IPRATROPIUM 0.02% NEBU 2.5 ML IH ONE (21:28)
[2020-09-20] MEDS ORDERED: predniSONE 20 MG TAB PO ONE (21:28)
[2020-09-20] MEDS ORDERED: ALBUTEROL 2.5 MG/3 ML NEBU IH ONE (21:28)
--- NOTE | 2020-09-20 21:51 | Emergency Department Report ---
ED Shortness of Breath HPI - General Chief Complaint: Adult Asthma Stated Complaint: ASTHMA, COUGHING, RIGHT LOWER LEG PAIN Time Seen by Provider: 09/20/20 21:13 Source: patient Mode of arrival: Ambulatory Limitations: No Limitations - History of Present Illness Initial Comments: 55-year-old female, history of hypertension, diabetes, asthma, presents to ED with complaint of cough and shortness of breath x3 days. Patient states her asthma has been acting up. States she has been using her inhaler at home. Patient reports some throat soreness. Patient also states today she has been experiencing sensation of something crawling on the anterior aspect of her right ankle. She states it feels like there is something moving in that area. She denies any pain or injury. She denies any swelling. Complaint: "asthma attack" -: days(s) (3) Severity: moderate Consistency: constant Improves With: bronchodilators Worsens With: exertion, coughing Known History Of: asthma Associated Symptoms: cough, sputum production Treatments Prior to Arrival: bronchodilator - Related Data Home Oxygen Therapy: No Home Medications Medication Instructions Recorded Confirmed Last Taken metFORMIN [Glucophage] 500 mg PO QDAY 02/05/20 08/18/20 Unknown Previous Rx's Medication Instructions Recorded Last Taken Type Furosemide [Lasix TAB] 20 mg PO DAILY@0600 #30 tablet 01/06/20 Unknown Rx Gabapentin 300 mg PO Q8HR #90 capsule 01/06/20 Unknown Rx Montelukast [Singulair] 10 mg PO QHS #30 tablet 01/06/20 Unknown Rx Pantoprazole [Protonix TAB] 40 mg PO QDAY #30 tablet 03/07/20 Unknown Rx Albuterol Mdi (or & Nicu Only) 2 puff IH QID PRN #1 inhalation 03/08/20 Unknown Rx [ProAir HFA Inhaler] Fluticasone [Flonase] 1 spray NS QDAY #1 bottle 05/07/20 Unknown Rx Ipratropium/Albuterol Sulfate 1 ampul IH Q6HR #1 box 05/07/20 Unknown Rx [DUONEB *Not for PRN Use*] Albuterol Sulfate [Proventil Hfa] 2 puff IH Q4HR PRN #1 hfa.aer.ad 05/18/20 Unknown Rx Apixaban [Eliquis] 5 mg PO Q12HR #60 tablet 08/19/20 Unknown Rx Arformoterol Nebu [Brovana Nebu] 15 mcg IH Q12HRT 30 Days ml 08/19/20 Unknown Rx Ascorbic Acid [Vitamin C] 500 mg PO BID #30 tablet 08/19/20 Unknown Rx Budesonide [Pulmicort Respules] 0.5 mg IH Q12HRT 30 Days nebu 08/19/20 Unknown Rx Metoprolol [Lopressor TAB] 25 mg PO Q8HR #90 tablet 08/19/20 Unknown Rx Prednisone [predniSONE 5 mg (6-Day 5 mg PO .TAPER #1 tab.ds.pk 08/19/20 Unknown Rx Pack, 21 Tabs)] Zinc Sulfate 220 mg PO QDAY #30 capsule 08/19/20 Unknown Rx guaiFENesin [Robitussin] 200 mg PO Q6H PRN #1 bottle 08/19/20 Unknown Rx Albuterol Sulfate [Proventil Hfa] 2 puff IH Q4HR PRN #1 hfa.aer.ad 09/20/20 Unknown Rx Benzonatate [Tessalon Perles] 100 mg PO Q8HR PRN #20 capsule 09/20/20 Unknown Rx predniSONE [Deltasone] 50 mg PO QDAY #5 tab 09/20/20 Unknown Rx Allergies Allergy/AdvReac Type Severity Reaction Status Date / Time amoxicillin Allergy Anaphylaxis Verified 09/14/20 12:35 Penicillins Allergy Rash Verified 09/14/20 12:35 seafood Allergy Severe Anaphylaxis Uncoded 03/16/17 01:08 peanuts Allergy Anaphylaxis Uncoded 09/20/19 12:06 ED Review of Systems ROS: Stated complaint: ASTHMA, COUGHING, RIGHT LOWER LEG PAIN Other details as noted in HPI Comment: All other systems reviewed and negative Constitutional: denies: fever ENT: throat pain Respiratory: cough, wheezing Neurological: paresthesias ED Past Medical Hx - Past Medical History Previous Medical History?: Yes Hx Hypertension: Yes Hx Heart Attack/AMI: No Hx Congestive Heart Failure: Yes Hx Diabetes: Yes Hx Pulmonary Embolism: No Hx GERD: Yes Hx Liver Disease: No Hx Renal Disease: No Hx Sickle Cell Disease: No Hx Arthritis: Yes Hx Headaches / Migraines: No Hx Seizures: No Hx Kidney Stones: No Hx Psychiatric Treatment: Yes (Anxiety) Hx Asthma: Yes Hx COPD: Yes Hx Tuberculosis: No Hx HIV: No Additional medical history: Intubated x 9. heart murmur. osteoporosis. hearing loss in [place] - Surgical History Past Surgical History?: Yes Hx Coronary Stent: No Hx Open Heart Surgery: No Hx Pacemaker: No Hx Internal Defibrillator: No Hx Cholecystectomy: No Hx Appendectomy: No Hx Breast Surgery: No Additional Surgical History: cataracts, nasal surg, tubal ligation. bilateral foot. Left shoulder surgery, R. knee sx - Social History Smoking Status: Never Smoker Substance Use Type: None - Medications Home Medications: Home Medications Medication Instructions Recorded Confirmed Last Taken Type Furosemide [Lasix TAB] 20 mg PO DAILY@0600 #30 tablet 01/06/20 08/18/20 Unknown Rx Gabapentin 300 mg PO Q8HR #90 capsule 01/06/20 08/18/20 Unknown Rx Montelukast [Singulair] 10 mg PO QHS #30 tablet 01/06/20 08/18/20 Unknown Rx metFORMIN [Glucophage] 500 mg PO QDAY 02/05/20 08/18/20 Unknown History Pantoprazole [Protonix TAB] 40 mg PO QDAY #30 tablet 03/07/20 08/18/20 Unknown Rx Albuterol Mdi (or & Nicu Only) 2 puff IH QID PRN #1 inhalation 03/08/20 08/18/20 Unknown Rx [ProAir HFA Inhaler] Fluticasone [Flonase] 1 spray NS QDAY #1 bottle 05/07/20 08/18/20 Unknown Rx Ipratropium/Albuterol Sulfate 1 ampul IH Q6HR #1 box 05/07/20 08/18/20 Unknown Rx [DUONEB *Not for PRN Use*] Albuterol Sulfate [Proventil Hfa] 2 puff IH Q4HR PRN #1 hfa.aer.ad 05/18/20 08/18/20 Unknown Rx Apixaban [Eliquis] 5 mg PO Q12HR #60 tablet 08/19/20 Unknown Rx Arformoterol Nebu [Brovana Nebu] 15 mcg IH Q12HRT 30 Days ml 08/19/20 Unknown Rx Ascorbic Acid [Vitamin C] 500 mg PO BID #30 tablet 08/19/20 Unknown Rx Budesonide [Pulmicort Respules] 0.5 mg IH Q12HRT 30 Days nebu 08/19/20 Unknown Rx Metoprolol [Lopressor TAB] 25 mg PO Q8HR #90 tablet 08/19/20 Unknown Rx Prednisone [predniSONE 5 mg (6-Day 5 mg PO .TAPER #1 tab.ds.pk 08/19/20 Unknown Rx Pack, 21 Tabs)] Zinc Sulfate 220 mg PO QDAY #30 capsule 08/19/20 Unknown Rx guaiFENesin [Robitussin] 200 mg PO Q6H PRN #1 bottle 08/19/20 Unknown Rx Albuterol Sulfate [Proventil Hfa] 2 puff IH Q4HR PRN #1 hfa.aer.ad 09/20/20 Unknown Rx Benzonatate [Tessalon Perles] 100 mg PO Q8HR PRN #20 capsule 09/20/20 Unknown Rx predniSONE [Deltasone] 50 mg PO QDAY #5 tab 09/20/20 Unknown Rx ED Physical Exam - General Limitations: No Limitations General appearance: alert, in no apparent distress - Head Head exam: Present: atraumatic, normocephalic - Eye Eye exam: Present: normal appearance, EOMI - ENT ENT exam: Present: normal orophraynx, mucous membranes moist - Neck Neck exam: Present: normal inspection - Respiratory Respiratory exam: Present: other (Scant wheezing present; able to speak in full sentences) - Cardiovascular Cardiovascular Exam: Present: regular rate, normal rhythm - GI/Abdominal GI/Abdominal exam: Present: soft. Absent: distended, tenderness - Extremities Exam Extremities exam: Present: normal inspection. Absent: pedal edema, calf tenderness - Neurological Exam Neurological exam: Present: alert, oriented X3 - Psychiatric Psychiatric exam: Present: normal affect, normal mood - Skin Skin exam: Present: warm, dry, intact, normal color ED Course Vital Signs 09/20/20 09/20/20 09/20/20 19:16 20:30 22:28 Temperature 99.3 F Pulse Rate 76 Pulse Rate [ 90 Bilateral Throughout] Respiratory 18 20 Rate Respiratory 16 Rate [Bilateral Throughout] Blood Pressure 123/76 [Right] O2 Sat by Pulse 97 99 Oximetry 09/20/20 09/20/20 09/21/20 22:34 23:26 00:26 Temperature Pulse Rate 94 H Pulse Rate [ Bilateral Throughout] Respiratory 20 20 20 Rate Respiratory Rate [Bilateral Throughout] Blood Pressure 112/80 [Right] O2 Sat by Pulse 100 Oximetry ED Medical Decision Making - Radiology Data Radiology results: report reviewed, image reviewed - Medical Decision Making 55-year-old female presents to ED with asthma exacerbation. Patient with wheezing on exam initially, able to speak in complete sentences. She has been given nebulizer treatment and prednisone. Patient is not in any respiratory distress. Wheezes have resolved. O2 sats are normal on room air. Chest x-ray shows no acute findings. Patient will be discharged at this time with prescriptions. Outpatient follow-up advised, return precautions given. - Differential Diagnosis Asthma, pneumonia, bronchitis Critical care attestation.: If time is entered above; I have spent that time in minutes in the direct care of this critically ill patient, excluding procedure time. ED Disposition Clinical Impression: Acute asthma exacerbation Disposition: DC- TO HOME OR SELFCARE Is pt being admited?: No Condition: Stable Instructions: Asthma, Adult, [id number] Prescriptions: predniSONE [Deltasone] 50 mg PO QDAY #5 tab Albuterol Sulfate [Proventil Hfa] 2 puff IH Q4HR PRN #1 hfa.aer.ad PRN Reason: Wheezing Benzonatate [Tessalon Perles] 100 mg PO Q8HR PRN #20 capsule PRN Reason: Cough Referrals: PRIMARY CARE, [Referring] - 3-5 Days Time of Disposition: 22:55
[2020-09-20 22:35] VITALS: BP 112/80
[2020-09-20] MEDS ORDERED: ACETAMINOPHEN 325 MG TAB PO ONE (22:55)
--- NOTE | 2020-09-21 10:40 | Electrocardiograph Report ---
[facility] Test Date: 2020-09-20 Test Time: 19:34:33 Pat Name: EDIE RENDON Department: Room: Gender: F Social Problems Specialist: DEMI : 1965 Requested By: CHARLEEN SHOEMAKER Order Number: [id number] Reading MD: Samm Causey Measurements Intervals [place] Rate: 83 P: 74 [place]: 186 QRS: 64 QRSD: 89 T: 44 QT: 375 QTc: 440 Interpretive Statements Sinus rhythm Ventricular premature complex Compared to ECG 08/15/2020 02:21:19 Ventricular premature complex(es) now present Atrial fibrillation no longer present Electronically Signed On 09-21-2020 10:39:55 EDT by Samm Causey
== END 2020-09-20 23:30 | disposition home or self-care (01) ==
LOC: ED 18:07
DX: J45.901 Unspecified asthma with (acute) exacerbation (principal); I11.0 Hypertensive heart disease with heart failure; I50.9 Heart failure, unspecified; E11.9 Type 2 diabetes mellitus without complications; F41.9 Anxiety disorder, unspecified; Z98.890 Other specified postprocedural states; Z79.899 Other long term (current) drug therapy; Z88.1 Allergy status to other antibiotic agents; Z88.0 Allergy status to penicillin; Z91.013 Allergy to seafood; Z91.010 Allergy to peanuts
CPT/HCPCS: 71046; 93005; 94640; 99283; J7512; 94644

== ENCOUNTER 2020-10-27 19:59 | Emergency (ER) | payer MEDICARE ==
--- NOTE | 2020-10-27 20:33 | Event Note ---
ED Screening Note ED Screening Note: Patient is a 55-year-old female presents emergency room with complaints of shortness of breath, chest tightness, rhinorrhea, congestion, wheezing she states her wheezing gets worse whenever she lays flat She also has a history of CHF She reports that she has been intubated 9 times Occasional very mild expiratory wheeze, decreased breath sounds in the bases vitals are stable no respiratory distress This initial assessment/diagnostic orders/clinical plan/treatment(s) is/are subject to change based on patients health status, clinical progression and re- assessment by fellow clinical providers in the ED. Further treatment and workup at subsequent clinical providers discretion. Patient/guardian urged not to elope from the ED as their condition may be serious if not clinically assessed and managed. Initial orders include: Labs, EKG, x-ray
[2020-10-27 20:55] LABS: Basophils % (Auto) 0.6 % (0.0-1.8); Eosinophils # (Auto) 0.6 K/mm3 (0.0-0.4); Eosinophils % (Auto) 10.4 % (0.0-4.3); Hematocrit 34.7 % (30.3-42.9); Hemoglobin 11.6 gm/dl (10.1-14.3); Lymphocytes # (Auto) 1.6 K/mm3 (1.2-5.4); Lymphocytes % (Auto) 30.1 % (13.4-35.0); Mean Corpuscular HGB Conc 34 % (30-34); Mean Corpuscular Volume 90 fl (79-97); Monocytes # (Auto) 0.6 K/mm3 (0.0-0.8); Monocytes % (Auto) 10.7 % (0.0-7.3); Platelet Count 235 K/mm3 (140-440); Red Blood Count 3.84 M/mm3 (3.65-5.03)
[2020-10-27 21:19] LABS: Alanine Aminotransferase 12 units/L (7-56); BUN/Creatinine Ratio 10; Blood Urea Nitrogen 8 mg/dL (7-17); Calcium 8.9 mg/dL (8.4-10.2); Hemolysis Index 13
--- NOTE | 2020-10-27 21:22 | XRay Report ---
CHEST 2 VIEWS INDICATION / CLINICAL INFORMATION: SOB, chest tightness. COMPARISON: 09/20/2020 FINDINGS: SUPPORT DEVICES: None. HEART / MEDIASTINUM: No significant abnormality. LUNGS / PLEURA: No significant pulmonary or pleural abnormality. No pneumothorax. ADDITIONAL FINDINGS: No significant additional findings. IMPRESSION: 1. No acute findings. Signer Name: Donovan Goldsmith MD Signed: 10/27/2020 9:17 PM Workstation Name: [id number]
--- NOTE | 2020-10-28 01:20 | Emergency Department Report ---
- General Chief Complaint: Upper Respiratory Infection Stated Complaint: ASTHMA/COLD SYMPTOMS/WHEEZING Time Seen by Provider: 10/27/20 20:31 Source: patient Mode of arrival: Ambulatory Limitations: No Limitations - History of Present Illness Initial Comments: 55-year-old female, history of asthma, presents to the ED with URI symptoms x4 days. Patient reports congestion, sneezing, wheezing, and chest tightness. Patient denies fever. States has not yet received her COVID-19 vaccine. Patient talking on her cell phone when I enter the room. -: days(s) (4) Severity: mild Consistency: constant Associated Symptoms: nasal congestion, shortness of breath. denies: fever, cough - Related Data Home Medications Medication Instructions Recorded Confirmed Last Taken metFORMIN [Glucophage] 500 mg PO QDAY 02/05/20 08/18/20 Unknown Previous Rx's Medication Instructions Recorded Last Taken Type Furosemide [Lasix TAB] 20 mg PO DAILY@0600 #30 tablet 01/06/20 Unknown Rx Gabapentin 300 mg PO Q8HR #90 capsule 01/06/20 Unknown Rx Montelukast [Singulair] 10 mg PO QHS #30 tablet 01/06/20 Unknown Rx Pantoprazole [Protonix TAB] 40 mg PO QDAY #30 tablet 03/07/20 Unknown Rx Albuterol Mdi (or & Nicu Only) 2 puff IH QID PRN #1 inhalation 03/08/20 Unknown Rx [ProAir HFA Inhaler] Fluticasone [Flonase] 1 spray NS QDAY #1 bottle 05/07/20 Unknown Rx Ipratropium/Albuterol Sulfate 1 ampul IH Q6HR #1 box 05/07/20 Unknown Rx [DUONEB *Not for PRN Use*] Albuterol Sulfate [Proventil Hfa] 2 puff IH Q4HR PRN #1 hfa.aer.ad 05/18/20 Unknown Rx Apixaban [Eliquis] 5 mg PO Q12HR #60 tablet 08/19/20 Unknown Rx Arformoterol Nebu [Brovana Nebu] 15 mcg IH Q12HRT 30 Days ml 08/19/20 Unknown Rx Ascorbic Acid [Vitamin C] 500 mg PO BID #30 tablet 08/19/20 Unknown Rx Budesonide [Pulmicort Respules] 0.5 mg IH Q12HRT 30 Days nebu 08/19/20 Unknown Rx Metoprolol [Lopressor TAB] 25 mg PO Q8HR #90 tablet 08/19/20 Unknown Rx Prednisone [predniSONE 5 mg (6-Day 5 mg PO .TAPER #1 tab.ds.pk 08/19/20 Unknown Rx Pack, 21 Tabs)] Zinc Sulfate 220 mg PO QDAY #30 capsule 08/19/20 Unknown Rx guaiFENesin [Robitussin] 200 mg PO Q6H PRN #1 bottle 08/19/20 Unknown Rx Albuterol Sulfate [Proventil Hfa] 2 puff IH Q4HR PRN #1 hfa.aer.ad 09/20/20 Unknown Rx Benzonatate [Tessalon Perles] 100 mg PO Q8HR PRN #20 capsule 09/20/20 Unknown Rx predniSONE [Deltasone] 50 mg PO QDAY #5 tab 09/20/20 Unknown Rx Albuterol Mdi (or & Nicu Only) 2 puff IH QID PRN #8.5 gram 10/28/20 Unknown Rx [ProAir HFA Inhaler] Benzonatate [Tessalon Perles] 100 mg PO Q8HR PRN #20 capsule 10/28/20 Unknown Rx predniSONE [Deltasone] 50 mg PO QDAY #5 tab 10/28/20 Unknown Rx Allergies Allergy/AdvReac Type Severity Reaction Status Date / Time amoxicillin Allergy Anaphylaxis Verified 09/14/20 12:35 Penicillins Allergy Rash Verified 09/14/20 12:35 seafood Allergy Severe Anaphylaxis Uncoded 03/16/17 01:08 peanuts Allergy Anaphylaxis Uncoded 09/20/19 12:06 ED Review of Systems ROS: Stated complaint: ASTHMA/COLD SYMPTOMS/WHEEZING Other details as noted in HPI Comment: All other systems reviewed and negative Constitutional: denies: fever ENT: congestion Respiratory: shortness of breath, wheezing. denies: cough ED Past Medical Hx - Past Medical History Previous Medical History?: Yes Hx Hypertension: Yes Hx Heart Attack/AMI: No Hx Congestive Heart Failure: Yes Hx Diabetes: Yes Hx Pulmonary Embolism: No Hx GERD: Yes Hx Liver Disease: No Hx Renal Disease: No Hx Sickle Cell Disease: No Hx Arthritis: Yes Hx Headaches / Migraines: No Hx Seizures: No Hx Kidney Stones: No Hx Psychiatric Treatment: Yes (Anxiety) Hx Asthma: Yes Hx COPD: Yes Hx Tuberculosis: No Hx HIV: No Additional medical history: Intubated x 9. heart murmur. osteoporosis. hearing loss in [place] - Surgical History Past Surgical History?: Yes Hx Coronary Stent: No Hx Open Heart Surgery: No Hx Pacemaker: No Hx Internal Defibrillator: No Hx Cholecystectomy: No Hx Appendectomy: No Hx Breast Surgery: No Additional Surgical History: cataracts, nasal surg, tubal ligation. bilateral foot. Left shoulder surgery, R. knee sx - Social History Smoking Status: Never Smoker Substance Use Type: None - Medications Home Medications: Home Medications Medication Instructions Recorded Confirmed Last Taken Type Furosemide [Lasix TAB] 20 mg PO DAILY@0600 #30 tablet 01/06/20 08/18/20 Unknown Rx Gabapentin 300 mg PO Q8HR #90 capsule 01/06/20 08/18/20 Unknown Rx Montelukast [Singulair] 10 mg PO QHS #30 tablet 01/06/20 08/18/20 Unknown Rx metFORMIN [Glucophage] 500 mg PO QDAY 02/05/20 08/18/20 Unknown History Pantoprazole [Protonix TAB] 40 mg PO QDAY #30 tablet 03/07/20 08/18/20 Unknown Rx Albuterol Mdi (or & Nicu Only) 2 puff IH QID PRN #1 inhalation 03/08/20 08/18/20 Unknown Rx [ProAir HFA Inhaler] Fluticasone [Flonase] 1 spray NS QDAY #1 bottle 05/07/20 08/18/20 Unknown Rx Ipratropium/Albuterol Sulfate 1 ampul IH Q6HR #1 box 05/07/20 08/18/20 Unknown Rx [DUONEB *Not for PRN Use*] Albuterol Sulfate [Proventil Hfa] 2 puff IH Q4HR PRN #1 hfa.aer.ad 05/18/20 08/18/20 Unknown Rx Apixaban [Eliquis] 5 mg PO Q12HR #60 tablet 08/19/20 Unknown Rx Arformoterol Nebu [Brovana Nebu] 15 mcg IH Q12HRT 30 Days ml 08/19/20 Unknown Rx Ascorbic Acid [Vitamin C] 500 mg PO BID #30 tablet 08/19/20 Unknown Rx Budesonide [Pulmicort Respules] 0.5 mg IH Q12HRT 30 Days nebu 08/19/20 Unknown Rx Metoprolol [Lopressor TAB] 25 mg PO Q8HR #90 tablet 08/19/20 Unknown Rx Prednisone [predniSONE 5 mg (6-Day 5 mg PO .TAPER #1 tab.ds.pk 08/19/20 Unknown Rx Pack, 21 Tabs)] Zinc Sulfate 220 mg PO QDAY #30 capsule 08/19/20 Unknown Rx guaiFENesin [Robitussin] 200 mg PO Q6H PRN #1 bottle 08/19/20 Unknown Rx Albuterol Sulfate [Proventil Hfa] 2 puff IH Q4HR PRN #1 hfa.aer.ad 09/20/20 Unknown Rx Benzonatate [Tessalon Perles] 100 mg PO Q8HR PRN #20 capsule 09/20/20 Unknown Rx predniSONE [Deltasone] 50 mg PO QDAY #5 tab 09/20/20 Unknown Rx Albuterol Mdi (or & Nicu Only) 2 puff IH QID PRN #8.5 gram 10/28/20 Unknown Rx [ProAir HFA Inhaler] Benzonatate [Tessalon Perles] 100 mg PO Q8HR PRN #20 capsule 10/28/20 Unknown Rx predniSONE [Deltasone] 50 mg PO QDAY #5 tab 10/28/20 Unknown Rx ED Physical Exam - General Limitations: No Limitations General appearance: alert, in no apparent distress (Patient talking on her cell phone) - Head Head exam: Present: atraumatic, normocephalic - Eye Eye exam: Present: normal appearance, EOMI - ENT ENT exam: Present: mucous membranes moist - Neck Neck exam: Present: normal inspection - Respiratory Respiratory exam: Present: normal lung sounds bilaterally. Absent: respiratory distress - Cardiovascular Cardiovascular Exam: Present: regular rate, normal rhythm - GI/Abdominal GI/Abdominal exam: Present: soft. Absent: distended, tenderness - Extremities Exam Extremities exam: Present: normal inspection - Neurological Exam Neurological exam: Present: alert, oriented X3 - Psychiatric Psychiatric exam: Present: normal affect, normal mood - Skin Skin exam: Present: warm, dry, intact, normal color ED Course Vital Signs 10/27/20 10/28/20 10/28/20 20:27 01:07 02:33 Temperature 98.4 F Pulse Rate 68 72 78 Respiratory 18 19 12 Rate Blood Pressure 143/76 Blood Pressure 140/99 146/89 [Right] O2 Sat by Pulse 98 99 99 Oximetry ED Medical Decision Making - Lab Data Result diagrams: 10/27/20 20:39 10/27/20 20:39 - Radiology Data Radiology results: report reviewed, image reviewed - Medical Decision Making 55-year-old female with URI symptoms. Patient is in no acute distress. O2 sats are normal. Patient is speaking in full sentences. Lungs are clear. Chest x- ray is normal. She will be discharged at this time with prescriptions. Outpatient follow-up advised, return precautions given. - Differential Diagnosis URI, asthma, pneumonia Critical care attestation.: If time is entered above; I have spent that time in minutes in the direct care of this critically ill patient, excluding procedure time. ED Disposition Clinical Impression: URI (upper respiratory infection) Disposition: TO HOME OR SELFCARE Is pt being admited?: No Condition: Stable Instructions: Upper Respiratory Infection, Adult, [id number] Additional Instructions: It is advised that you obtain outpatient COVID-19 testing. Please quarantine as necessary. Prescriptions: predniSONE [Deltasone] 50 mg PO QDAY #5 tab Albuterol Mdi (or & Nicu Only) [ProAir HFA Inhaler] 2 puff IH QID PRN #8.5 gram PRN Reason: Shortness Of Breath Benzonatate [Tessalon Perles] 100 mg PO Q8HR PRN #20 capsule PRN Reason: Cough Referrals: PRIMARY CARE [Referring] - 3-5 Days [facility] [Provider Group] - 3-5 Days Time of Disposition: 01:22
[2020-10-28 02:34] VITALS: BP 146/89
[2020-10-28] MEDS ORDERED: predniSONE 20 MG TAB PO ONE (02:59)
--- NOTE | 2020-10-28 09:50 | Electrocardiograph Report ---
[facility] Test Date: 2020-10-27 Test Time: 20:37:20 Pat Name: EDIE RENDON Department: Room: Gender: F Food Cart Attendant: ALPHONSE : 1965 Requested By: DIONICIO JOHNSON Order Number: [id number] Reading MD: Elijah Marte Measurements Intervals [place] Rate: 65 P: 56 [place]: 207 QRS: 22 QRSD: 101 T: 28 QT: 436 QTc: 453 Interpretive Statements Sinus rhythm Borderline prolonged [place] interval Compared to ECG 09/20/2020 19:34:33 Ventricular premature complex(es) no longer present Electronically Signed On 10-28-2020 9:50:47 EDT by Elijah Marte
== END 2020-10-28 02:34 | disposition home or self-care (01) ==
LOC: ED 19:59
DX: J06.9 Acute upper respiratory infection, unspecified (principal); I11.0 Hypertensive heart disease with heart failure; I50.9 Heart failure, unspecified; E11.9 Type 2 diabetes mellitus without complications; K21.9 Gastro-esophageal reflux disease without esophagitis; F41.9 Anxiety disorder, unspecified; Z98.890 Other specified postprocedural states; Z79.899 Other long term (current) drug therapy; Z88.1 Allergy status to other antibiotic agents; Z88.0 Allergy status to penicillin; Z91.010 Allergy to peanuts; Z91.013 Allergy to seafood
CPT/HCPCS: 36415; 71046; 80053; 83880; 84484; 85025; 93005; 99283; J7512

== ENCOUNTER 2020-12-17 10:47 | Emergency (ER) | payer MEDICARE ==
--- NOTE | 2020-12-17 14:22 | Emergency Department Report ---
<HATTIE JEAN - Last Filed: 12/17/20 14:23> ED Asthma HPI - General Chief Complaint: Adult Asthma Stated Complaint: ASTHMA Time Seen by Provider: 12/17/20 14:17 Source: patient Mode of arrival: Ambulatory Limitations: Other - History of Present Illness Initial Comments: The patient was evaluated in the emergency department for symptoms described in the history of present illness. He/she was evaluated in the context of the global COVID-19 pandemic, which necessitated consideration that the patient might be at risk for infection with the virus that causes COVID-19. Institutional protocols and algorithms that pertain to the evaluation of patients at risk for COVID-19 are in a state of rapid change based on informati on released by regulatory bodies including the CDC and federal and state organizations. These policies and algorithms were followed during the patient's care in the emergency department. Please note that these policies, procedures and recommendations changed on a rapid basis. 55-year-old -Burm[place] female with a known history of asthma and multiple ER visits having a 2-day history of asthma flareup. Patient states she has been using her inhaler and nebulizer treatments. She states she took Tylenol to help relax her muscles as she was having tightness. Patient reports she is vaccin ated. Patient states she made an attempt to go to her primary care office today and they refused to see her no doctor to evaluate patient. MD Complaint: "asthma attack", wheezing Onset/Timin -: days(s) Asthma History: history of frequent attac Severity: moderate Treatments Prior to Arrival: inhaled bronchodilator - Related Data Current Asthma Therapy: inhaled bronchodilator Home Medications Medication Instructions Recorded Confirmed Last Taken metFORMIN [Glucophage] 500 mg PO QDAY 02/05/20 08/18/20 Unknown Previous Rx's Medication Instructions Recorded Last Taken Type Furosemide [Lasix TAB] 20 mg PO DAILY@0600 #30 tablet 01/06/20 Unknown Rx Gabapentin 300 mg PO Q8HR #90 capsule 01/06/20 Unknown Rx Montelukast [Singulair] 10 mg PO QHS #30 tablet 01/06/20 Unknown Rx Pantoprazole [Protonix TAB] 40 mg PO QDAY #30 tablet 03/07/20 Unknown Rx Albuterol Mdi (or & Nicu Only) 2 puff IH QID PRN #1 inhalation 11/22/20 Unknown Rx [ProAir HFA Inhaler] Fluticasone [Flonase] 1 spray NS QDAY #1 bottle 05/07/20 Unknown Rx Ipratropium/Albuterol Sulfate 1 ampul IH Q6HR #1 box 05/07/20 Unknown Rx [DUONEB *Not for PRN Use*] Albuterol Sulfate [Proventil Hfa] 2 puff IH Q4HR PRN #1 hfa.aer.ad 05/18/20 Unknown Rx Apixaban [Eliquis] 5 mg PO Q12HR #60 tablet 08/19/20 Unknown Rx Arformoterol Nebu [Brovana Nebu] 15 mcg IH Q12HRT 30 Days ml 08/19/20 Unknown Rx Ascorbic Acid [Vitamin C] 500 mg PO BID #30 tablet 08/19/20 Unknown Rx Budesonide [Pulmicort Respules] 0.5 mg IH Q12HRT 30 Days nebu 08/19/20 Unknown Rx Metoprolol [Lopressor TAB] 25 mg PO Q8HR #90 tablet 08/19/20 Unknown Rx Prednisone [predniSONE 5 mg (6-Day 5 mg PO .TAPER #1 tab.ds.pk 08/19/20 Unknown Rx Pack, 21 Tabs)] Zinc Sulfate 220 mg PO QDAY #30 capsule 08/19/20 Unknown Rx guaiFENesin [Robitussin] 200 mg PO Q6H PRN #1 bottle 08/19/20 Unknown Rx Albuterol Sulfate [Proventil Hfa] 2 puff IH Q4HR PRN #1 hfa.aer.ad 09/20/20 Unknown Rx Benzonatate [Tessalon Perles] 100 mg PO Q8HR PRN #20 capsule 09/20/20 Unknown Rx predniSONE [Deltasone] 50 mg PO QDAY #5 tab 09/20/20 Unknown Rx Albuterol Mdi (or & Nicu Only) 2 puff IH QID PRN #8.5 gram 10/28/20 Unknown Rx [ProAir HFA Inhaler] Benzonatate [Tessalon Perles] 100 mg PO Q8HR PRN #20 capsule 10/28/20 Unknown Rx predniSONE [Deltasone] 50 mg PO QDAY #5 tab 10/28/20 Unknown Rx Albuterol Sulfate [Proair 90 mcg IH Q4H PRN #1 aer.pw.bas 12/17/20 Unknown Rx Digihaler] predniSONE [Deltasone] 20 mg PO QDAY #5 tab 12/17/20 Unknown Rx Allergies Allergy/AdvReac Type Severity Reaction Status Date / Time amoxicillin Allergy Anaphylaxis Verified 12/17/20 11:51 Penicillins Allergy Rash Verified 12/17/20 11:51 seafood Allergy Severe Anaphylaxis Uncoded 03/16/17 01:08 peanuts Allergy Anaphylaxis Uncoded 09/20/19 12:06 ED Review of Systems Comment: All other systems reviewed and negative ED Past Medical Hx - Past Medical History Hx Hypertension: Yes Hx Heart Attack/AMI: No Hx Congestive Heart Failure: Yes Hx Diabetes: Yes Hx Pulmonary Embolism: No Hx GERD: Yes Hx Liver Disease: No Hx Renal Disease: No Hx Sickle Cell Disease: No Hx Arthritis: Yes Hx Headaches / Migraines: No Hx Seizures: No Hx Kidney Stones: No Hx Psychiatric Treatment: Yes (Anxiety) Hx Asthma: Yes Hx COPD: Yes Hx Tuberculosis: No Hx HIV: No Additional medical history: Intubated x 9. heart murmur. osteoporosis. hearing loss in [place] - Surgical History Hx Coronary Stent: No Hx Open Heart Surgery: No Hx Pacemaker: No Hx Internal Defibrillator: No Hx Cholecystectomy: No Hx Appendectomy: No Hx Breast Surgery: No Additional Surgical History: cataracts, nasal surg, tubal ligation. bilateral foot. Left shoulder surgery, R. knee sx / EYE SURGERY - Social History Smoking Status: Never Smoker Substance Use Type: None - Medications Home Medications: Home Medications Medication Instructions Recorded Confirmed Last Taken Type Furosemide [Lasix TAB] 20 mg PO DAILY@0600 #30 tablet 01/06/20 08/18/20 Unknown Rx Gabapentin 300 mg PO Q8HR #90 capsule 01/06/20 08/18/20 Unknown Rx Montelukast [Singulair] 10 mg PO QHS #30 tablet 01/06/20 08/18/20 Unknown Rx metFORMIN [Glucophage] 500 mg PO QDAY 02/05/20 08/18/20 Unknown History Pantoprazole [Protonix TAB] 40 mg PO QDAY #30 tablet 03/07/20 08/18/20 Unknown Rx Albuterol Mdi (or & Nicu Only) 2 puff IH QID PRN #1 inhalation 03/08/20 08/18/20 Unknown Rx [ProAir HFA Inhaler] Fluticasone [Flonase] 1 spray NS QDAY #1 bottle 05/07/20 08/18/20 Unknown Rx Ipratropium/Albuterol Sulfate 1 ampul IH Q6HR #1 box 05/07/20 08/18/20 Unknown Rx [DUONEB *Not for PRN Use*] Albuterol Sulfate [Proventil Hfa] 2 puff IH Q4HR PRN #1 hfa.aer.ad 05/18/20 08/18/20 Unknown Rx Apixaban [Eliquis] 5 mg PO Q12HR #60 tablet 08/19/20 Unknown Rx Arformoterol Nebu [Brovana Nebu] 15 mcg IH Q12HRT 30 Days ml 08/19/20 Unknown Rx Ascorbic Acid [Vitamin C] 500 mg PO BID #30 tablet 08/19/20 Unknown Rx Budesonide [Pulmicort Respules] 0.5 mg IH Q12HRT 30 Days nebu 08/19/20 Unknown Rx Metoprolol [Lopressor TAB] 25 mg PO Q8HR #90 tablet 08/19/20 Unknown Rx Prednisone [predniSONE 5 mg (6-Day 5 mg PO .TAPER #1 tab.ds.pk 08/19/20 Unknown Rx Pack, 21 Tabs)] Zinc Sulfate 220 mg PO QDAY #30 capsule 08/19/20 Unknown Rx guaiFENesin [Robitussin] 200 mg PO Q6H PRN #1 bottle 08/19/20 Unknown Rx Albuterol Sulfate [Proventil Hfa] 2 puff IH Q4HR PRN #1 hfa.aer.ad 09/20/20 Unknown Rx Benzonatate [Tessalon Perles] 100 mg PO Q8HR PRN #20 capsule 09/20/20 Unknown Rx predniSONE [Deltasone] 50 mg PO QDAY #5 tab 09/20/20 Unknown Rx Albuterol Mdi (or & Nicu Only) 2 puff IH QID PRN #8.5 gram 10/28/20 Unknown Rx [ProAir HFA Inhaler] Benzonatate [Tessalon Perles] 100 mg PO Q8HR PRN #20 capsule 10/28/20 Unknown Rx predniSONE [Deltasone] 50 mg PO QDAY #5 tab 10/28/20 Unknown Rx Albuterol Sulfate [Proair 90 mcg IH Q4H PRN #1 aer.pw.bas 12/17/20 Unknown Rx Digihaler] predniSONE [Deltasone] 20 mg PO QDAY #5 tab 12/17/20 Unknown Rx ED Physical Exam - General Limitations: Other ED Medical Decision Making - Medical Decision Making 55-year-old -Burmese female with a known history of asthma and multiple ER visits having a 2-day history of asthma flareup. Patient states she has been using her inhaler and nebulizer treatments. She states she took Tylenol to help relax her muscles as she was having tightness. Patient reports she is vaccinated. Patient states she made an attempt to go to her primary care office today and they refused to see her no doctor to evaluate patient. Albuterol nebulizer has been ordered and prednisone has been ordered. ED Disposition Clinical Impression: Asthma exacerbation Qualifiers: Asthma severity: unspecified severity Asthma persistence: unspecified Qualified Code(s): J45.901 - Unspecified asthma with (acute) exacerbation Disposition: HOME / SELF CARE / HOMELESS Condition: Stable Instructions: Asthma, Adult Additional Instructions: Continue all medications as previously prescribed. Use Albuterol inhaler as directed. Take Prednisone with food as directed. Avoid environmental triggers which may worsen your asthma. Gradually advance physical activity slowly as tolerated. Follow-up with primary care provider this week. Call tomorrow to schedule an appointment. See referral information below. Return to the emergency department immediately for new or worsening symptoms. Prescriptions: predniSONE [Deltasone] 20 mg PO QDAY #5 tab Albuterol Sulfate [Proair Digihaler] 90 mcg IH Q4H PRN #1 aer.pw.bas PRN Reason: Shortness Of Breath Referrals: ALAINA PRUETT MD [Staff Physician] - 3-5 Days [facility] [Provider Group] - 3-5 Days [facility] [Outside] - 3-5 Days [facility] [Outside] - 3-5 Days [facility] [Outside] - 3-5 Days <CHARLEEN SHOEMAKER - Last Filed: 12/17/20 20:18> ED Review of Systems ROS: Stated complaint: ASTHMA Other details as noted in HPI ED Course Vital Signs 12/17/20 12/17/20 11:53 16:52 Temperature 98.1 F Pulse Rate 69 61 Respiratory 18 20 Rate Blood Pressure 110/84 150/63 O2 Sat by Pulse 97 99 Oximetry ED Medical Decision Making - Lab Data Result diagrams: 12/17/20 18:19 12/17/20 18:19 - Medical Decision Making Care of patient transferred to Charleen Shoemaker PA-C at shift change. Patient has a history of asthma, COPD, atrial fibrillation with rapid ventr icular response, and coronary artery disease. Patient is on Eliquis. States she is compliant with her anticoagulation. States she has required intubation on multiple prior occasions for her asthma. Physical exam demonstrates no respiratory distress, no wheezing, no stridor. Breath sounds minimally diminished bilaterally. 17:43: Ordered traffic monitor specialist, continuous pulse oximetry, breathing treatment. Respiratory therapy aware. On reevaluation, patient remains stable. No hypoxia, no respiratory distress. Repeat cardiopulmonary exam demonstrates improved air movement. Labs unremarkable. Chest x-ray is negative. Patient is resting comfortably. There is no clinical indication for further diagnostic work-up on an emergent basis at this time. Patient will be discharged home with beta agonist inhaler and steroids. Emphasized the importance of close outpatient follow-up. Patient expressed understanding and is agreeable to plan of care. Strict return precautions provided. Repeat exam is unremarkable and benign. History, exam, diagnostic testing, and current condition do not suggest worrisome pathology to warrant further testing, continued ED treatment, admission, or surgical evaluation at this point. Given the low probability of a significant medical illness, it would be more likely to result in harm than benefit to perform further testing at this stage. Discussed findings, presumptive diagnosis, need for follow-up and specific signs/symptoms that should prompt immediate return to the emergency department. Instructions were explained in detail to the patient in addition to giving written discharge information. Patient expressed understanding and was given the opportunity to ask questions, all of which were satisfactorily answered prior to discharge home. Critical care attestation.: If time is entered above; I have spent that time in minutes in the direct care of this critically ill patient, excluding procedure time. ED Disposition Is pt being admited?: No Does the pt Need Aspirin: No Time of Disposition: 20:17
[2020-12-17] MEDS ORDERED: predniSONE 20 MG TAB PO ONE ×3 (14:23→20:34)
[2020-12-17 16:57] VITALS: BP 150/63
[2020-12-17] MEDS ORDERED: IPRATROPIUM 0.02% NEBU 2.5 ML IH ONE (17:40)
[2020-12-17] MEDS ORDERED: ALBUTEROL 2.5 MG/3 ML NEBU IH ONE (17:40)
--- NOTE | 2020-12-17 18:19 | XRay Report ---
CHEST 2 VIEWS INDICATION / CLINICAL INFORMATION: SOB; ASTHMA ATTACK SINCE YESTERDAY.. COMPARISON: 10/27/20. FINDINGS: SUPPORT DEVICES: None. HEART / MEDIASTINUM: The heart size and pulmonary vasculature are normal. LUNGS / PLEURA: No significant pulmonary or pleural abnormality. No pneumothorax. ADDITIONAL FINDINGS: No significant additional findings. IMPRESSION: No acute abnormality or significant change. Signer Name: Joshua Hinton MD Signed: 12/17/2020 6:15 PM Workstation Name: [id number]
[2020-12-17 18:40] LABS: Basophils # (Auto) 0.1 K/mm3 (0.0-0.1); Basophils % (Auto) 1.4 % (0.0-1.8); Eosinophils # (Auto) 0.3 K/mm3 (0.0-0.4); Eosinophils % (Auto) 6.9 % (0.0-4.3); Hematocrit 36.5 % (30.3-42.9); Hemoglobin 12.2 gm/dl (10.1-14.3); Lymphocytes # (Auto) 1.2 K/mm3 (1.2-5.4); Lymphocytes % (Auto) 30.6 % (13.4-35.0); Mean Corpuscular HGB Conc 33 % (30-34); Mean Corpuscular Volume 88 fl (79-97); Monocytes # (Auto) 0.2 K/mm3 (0.0-0.8); Monocytes % (Auto) 4.6 % (0.0-7.3); Platelet Count 232 K/mm3 (140-440); Red Blood Count 4.14 M/mm3 (3.65-5.03); Red Cell Distribution Width 13.9 % (13.2-15.2)
[2020-12-17 18:53] LABS: Alanine Aminotransferase 23 units/L (7-56); Albumin 4.1 g/dL (3.9-5); Blood Urea Nitrogen 7 mg/dL (7-17); Calcium 9.5 mg/dL (8.4-10.2); Hemolysis Index 3
[2020-12-17 18:54] LABS: BUN/Creatinine Ratio 10
== END 2020-12-17 20:35 | disposition home or self-care (01) ==
LOC: ED 10:47
DX: J45.901 Unspecified asthma with (acute) exacerbation (principal); I11.0 Hypertensive heart disease with heart failure; E11.8 Type 2 diabetes mellitus with unspecified complications; K21.9 Gastro-esophageal reflux disease without esophagitis; M19.90 Unspecified osteoarthritis, unspecified site; F41.8 Other specified anxiety disorders; J44.9 Chronic obstructive pulmonary disease, unspecified; M81.0 Age-related osteoporosis without current pathological fracture; Z87.310 Personal history of (healed) osteoporosis fracture; K44.9 Diaphragmatic hernia without obstruction or gangrene; Z98.890 Other specified postprocedural states; Z88.0 Allergy status to penicillin; Z91.010 Allergy to peanuts; Z91.013 Allergy to seafood
CPT/HCPCS: 36415; 71046; 80053; 83735; 83880; 85025; 85379; 94640; 99284; J7512; 94644

== ENCOUNTER 2021-01-07 18:35 | Emergency (ER) | payer MEDICARE ==
[2021-01-07 18:39] VITALS: BP 151/82
[2021-01-07] MEDS ORDERED: ALBUTEROL 2.5 MG/3 ML NEBU IH ONE (18:49)
[2021-01-07] MEDS ORDERED: IPRATROPIUM 0.02% NEBU 2.5 ML IH ONE (18:49)
[2021-01-07] MEDS ORDERED: dexAMETHasone 4 MG/ML VIAL IM ONE (18:50)
--- NOTE | 2021-01-07 19:40 | XRay Report ---
CHEST 2 VIEWS INDICATION / CLINICAL INFORMATION: Chest tightness. COMPARISON: 12/17/20. FINDINGS: SUPPORT DEVICES: None. HEART / MEDIASTINUM: The heart size and pulmonary vasculature are normal. The aorta is normal in ester steven. LUNGS / PLEURA: No significant pulmonary or pleural abnormality. No pneumothorax. ADDITIONAL FINDINGS: There are surgical changes involving the left shoulder. IMPRESSION: No acute abnormality or significant change. Signer Name: Joshua Hinton MD Signed: 01/07/2021 7:36 PM Workstation Name: [id number]
--- NOTE | 2021-01-07 20:12 | Emergency Department Report ---
ED Asthma HPI - General Chief Complaint: Adult Asthma Stated Complaint: asthma Time Seen by Provider: 01/07/21 18:49 Source: patient Mode of arrival: Wheelchair Limitations: No Limitations - History of Present Illness Initial Comments: Patient is a 55-year-old F [place] female with a past medical history of asthma COPD congestive heart failure who is presenting with some shortness of breath over the last 2 days. She states she believes that increased shortness of breath is from the weather changing and the recent rain. States this is a trigger for her asthma. Patient states she just used her neb machine multiple times in the last 2 days. Feels as though she needs a dose of steroids. Patient is complaining of chest tightness that is diffuse. She denies any cough congestion fevers or chills at this time. - Related Data Home Medications Medication Instructions Recorded Confirmed Last Taken metFORMIN [Glucophage] 500 mg PO QDAY 02/05/20 08/18/20 Unknown Previous Rx's Medication Instructions Recorded Last Taken Type Furosemide [Lasix TAB] 20 mg PO DAILY@0600 #30 tablet 01/06/20 Unknown Rx Gabapentin 300 mg PO Q8HR #90 capsule 01/06/20 Unknown Rx Montelukast [Singulair] 10 mg PO QHS #30 tablet 01/06/20 Unknown Rx Pantoprazole [Protonix TAB] 40 mg PO QDAY #30 tablet 03/07/20 Unknown Rx Albuterol Mdi (or & Nicu Only) 2 puff IH QID PRN #1 inhalation 03/08/20 Unknown Rx [ProAir HFA Inhaler] Fluticasone [Flonase] 1 spray NS QDAY #1 bottle 05/07/20 Unknown Rx Ipratropium/Albuterol Sulfate 1 ampul IH Q6HR #1 box 05/07/20 Unknown Rx [DUONEB *Not for PRN Use*] Albuterol Sulfate [Proventil Hfa] 2 puff IH Q4HR PRN #1 hfa.aer.ad 05/18/20 U nknown Rx Apixaban [Eliquis] 5 mg PO Q12HR #60 tablet 08/19/20 Unknown Rx Arformoterol Nebu [Brovana Nebu] 15 mcg IH Q12HRT 30 Days ml 08/19/20 Unknown Rx Ascorbic Acid [Vitamin C] 500 mg PO BID #30 tablet 08/19/20 Unknown Rx Budesonide [Pulmicort Respules] 0.5 mg IH Q12HRT 30 Days nebu 08/19/20 Unknown Rx Metoprolol [Lopressor TAB] 25 mg PO Q8HR #90 tablet 08/19/20 Unknown Rx Prednisone [predniSONE 5 mg (6-Day 5 mg PO .TAPER #1 tab.ds.pk 08/19/20 Unknown Rx Pack, 21 Tabs)] Zinc Sulfate 220 mg PO QDAY #30 capsule 08/19/20 Unknown Rx guaiFENesin [Robitussin] 200 mg PO Q6H PRN #1 bottle 08/19/20 Unknown Rx Albuterol Sulfate [Proventil Hfa] 2 puff IH Q4HR PRN #1 hfa.aer.ad 09/20/20 Unknown Rx Benzonatate [Tessalon Perles] 100 mg PO Q8HR PRN #20 capsule 09/20/20 Unknown Rx Albuterol Mdi (or & Nicu Only) 2 puff IH QID PRN #8.5 gram 10/28/20 Unknown Rx [ProAir HFA Inhaler] Benzonatate [Tessalon Perles] 100 mg PO Q8HR PRN #20 capsule 10/28/20 Unknown Rx predniSONE [Deltasone] 50 mg PO QDAY #5 tab 10/28/20 Unknown Rx Albuterol Sulfate [Proair 90 mcg IH Q4H PRN #1 aer.pw.bas 12/17/20 Unknown Rx Digihaler] predniSONE [Deltasone] 20 mg PO QDAY #5 tab 12/17/20 Unknown Rx predniSONE [Deltasone] 50 mg PO QDAY #5 tab 01/07/21 Unknown Rx Allergies Allergy/AdvReac Type Severity Reaction Status Date / Time amoxicillin Allergy Anaphylaxis Verified 01/07/21 18:36 Penicillins Allergy Rash Verified 01/07/21 18:36 seafood Allergy Severe Anaphylaxis Uncoded 03/16/17 01:08 peanuts Allergy Anaphylaxis Uncoded 09/20/19 12:06 ED Review of Systems ROS: Stated complaint: asthma Other details as noted in HPI Comment: All other systems reviewed and negative ED Past Medical Hx - Past Medical History Hx Hypertension: Yes Hx Heart Attack/AMI: No Hx Congestive Heart Failure: Yes Hx Diabetes: Yes Hx Pulmonary Embolism: No Hx GERD: Yes Hx Liver Disease: No Hx Renal Disease: No Hx Sickle Cell Disease: No Hx Arthritis: Yes Hx Headaches / Migraines: No Hx Seizures: No Hx Kidney Stones: No Hx Psychiatric Treatment: Yes (Anxiety) Hx Asthma: Yes Hx COPD: Yes Hx Tuberculosis: No Hx HIV: No Additional medical history: Intubated x 9. heart murmur. osteoporosis. hearing loss in [place] - Surgical History Hx Coronary Stent: No Hx Open Heart Surgery: No Hx Pacemaker: No Hx Internal Defibrillator: No Hx Cholecystectomy: No Hx Appendectomy: No Hx Breast Surgery: No Additional Surgical History: cataracts, nasal surg, tubal ligation. bilateral foot. Left shoulder surgery, R. knee sx / EYE SURGERY - Social History Smoking Status: Never Smoker Substance Use Type: None - Medications Home Medications: Home Medications Medication Instructions Recorded Confirmed Last Taken Type Furosemide [Lasix TAB] 20 mg PO DAILY@0600 #30 tablet 01/06/20 08/18/20 Unknown Rx Gabapentin 300 mg PO Q8HR #90 capsule 01/06/20 08/18/20 Unknown Rx Montelukast [Singulair] 10 mg PO QHS #30 tablet 01/06/20 08/18/20 Unknown Rx metFORMIN [Glucophage] 500 mg PO QDAY 02/05/20 08/18/20 Unknown History Pantoprazole [Protonix TAB] 40 mg PO QDAY #30 tablet 03/07/20 08/18/20 Unknown Rx Albuterol Mdi (or & Nicu Only) 2 puff IH QID PRN #1 inhalation 03/08/20 08/18/20 Unknown Rx [ProAir HFA Inhaler] Fluticasone [Flonase] 1 spray NS QDAY #1 bottle 05/07/20 08/18/20 Unknown Rx Ipratropium/Albuterol Sulfate 1 ampul IH Q6HR #1 box 05/07/20 08/18/20 Unknown Rx [DUONEB *Not for PRN Use*] Albuterol Sulfate [Proventil Hfa] 2 puff IH Q4HR PRN #1 hfa.aer.ad 05/18/20 08/18/20 Unknown Rx Apixaban [Eliquis] 5 mg PO Q12HR #60 tablet 08/19/20 Unknown Rx Arformoterol Nebu [Brovana Nebu] 15 mcg IH Q12HRT 30 Days ml 08/19/20 Unknown Rx Ascorbic Acid [Vitamin C] 500 mg PO BID #30 tablet 08/19/20 Unknown Rx Budesonide [Pulmicort Respules] 0.5 mg IH Q12HRT 30 Days nebu 08/19/20 Unknown Rx Metoprolol [Lopressor TAB] 25 mg PO Q8HR #90 tablet 08/19/20 Unknown Rx Prednisone [predniSONE 5 mg (6-Day 5 mg PO .TAPER #1 tab.ds.pk 08/19/20 Unknown Rx Pack, 21 Tabs)] Zinc Sulfate 220 mg PO QDAY #30 capsule 08/19/20 Unknown Rx guaiFENesin [Robitussin] 200 mg PO Q6H PRN #1 bottle 08/19/20 Unknown Rx Albuterol Sulfate [Proventil Hfa] 2 puff IH Q4HR PRN #1 hfa.aer.ad 09/20/20 Unknown Rx Benzonatate [Tessalon Perles] 100 mg PO Q8HR PRN #20 capsule 09/20/20 Unknown Rx Albuterol Mdi (or & Nicu Only) 2 puff IH QID PRN #8.5 gram 10/28/20 Unknown Rx [ProAir HFA Inhaler] Benzonatate [Tessalon Perles] 100 mg PO Q8HR PRN #20 capsule 10/28/20 Unknown Rx predniSONE [Deltasone] 50 mg PO QDAY #5 tab 10/28/20 Unknown Rx Albuterol Sulfate [Proair 90 mcg IH Q4H PRN #1 aer.pw.bas 12/17/20 Unknown Rx Digihaler] predniSONE [Deltasone] 20 mg PO QDAY #5 tab 12/17/20 Unknown Rx predniSONE [Deltasone] 50 mg PO QDAY #5 tab 01/07/21 Unknown Rx ED Physical Exam - General Limitations: No Limitations General appearance: alert, in no apparent distress - Head Head exam: Present: atraumatic, normocephalic - Eye Eye exam: Present: normal appearance, PERRL, EOMI - ENT ENT exam: Present: mucous membranes moist - Neck Neck exam: Present: normal inspection - Respiratory Respiratory exam: Present: normal lung sounds bilaterally, decreased breath sounds, prolonged expiratory. Absent: respiratory distress, wheezes, rales, rhonchi - Cardiovascular Cardiovascular Exam: Present: regular rate, normal rhythm, normal heart sounds. Absent: systolic murmur, diastolic murmur, rubs, gallop - GI/Abdominal GI/Abdominal exam: Present: soft, normal bowel sounds. Absent: distended, tenderness, guarding - Extremities Exam Extremities exam: Present: normal inspection - Back Exam Back exam: Present: normal inspection - Neurological Exam Neurological exam: Present: alert, oriented X3 - Psychiatric Psychiatric exam: Present: normal affect, normal mood - Skin Skin exam: Present: warm, dry, intact, normal color. Absent: rash ED Course Vital Signs 01/07/21 18:38 Temperature 97.7 F Pulse Rate 85 Respiratory 28 H Rate Blood Pressure 151/82 [Right] O2 Sat by Pulse 99 Oximetry ED Medical Decision Making - Radiology Data Ordering Physician: ZAHRA ALCANTARA MD Date of Service: 01/07/21 Procedure(s): XR chest routine 2V Accession Number(s): [id number] cc: ZAHRA ALCANTARA MD Fluoro Time In Minutes: CHEST 2 VIEWS INDICATION / CLINICAL INFORMATION: Chest tightness. COMPARISON: 12/17/20. FINDINGS: SUPPORT DEVICES: None. HEART / MEDIASTINUM: The heart size and pulmonary vasculature are normal. The aorta is normal in caliber. LUNGS / PLEURA: No significant pulmonary or pleural abnormality. No pneumothorax. ADDITIONAL FINDINGS: There are surgical changes involving the left shoulder. IMPRESSION: No acute abnormality or significant change. Signer Name: Joshua Hinton MD Signed: 01/07/2021 7:36 PM Workstation Name: [id number] - Medical Decision Making Patient received a neb treatment states he is feeling some improvement.. Patient will be discharged home with a short course of steroids. Critical care attestation.: If time is entered above; I have spent that time in minutes in the direct care of this critically ill patient, excluding procedure time. ED Disposition Clinical Impression: Asthma exacerbation Qualifiers: Asthma severity: mild Asthma persistence: intermittent Qualified Code(s): J45.21 - Mild intermittent asthma with (acute) exacerbation Disposition: 01 HOME / SELF CARE / HOMELESS Is pt being admited?: No Does the pt Need Aspirin: No Condition: Stable Instructions: Asthma, Adult Prescriptions: predniSONE [Deltasone] 50 mg PO QDAY #5 tab Referrals: AUDI URIARTE MD [Staff Physician] - 3-5 Days Time of Disposition: 20:12
== END 2021-01-07 20:51 | disposition home or self-care (01) ==
LOC: ED 18:35
DX: J45.901 Unspecified asthma with (acute) exacerbation (principal); I11.0 Hypertensive heart disease with heart failure; E11.8 Type 2 diabetes mellitus with unspecified complications; K21.9 Gastro-esophageal reflux disease without esophagitis; M19.90 Unspecified osteoarthritis, unspecified site; R01.1 Cardiac murmur, unspecified; K44.9 Diaphragmatic hernia without obstruction or gangrene; Z98.890 Other specified postprocedural states; Z88.0 Allergy status to penicillin; Z91.010 Allergy to peanuts; Z91.013 Allergy to seafood
CPT/HCPCS: 71046; 94640; 96372; 99283; J1100

== ENCOUNTER 2021-01-14 19:27 | Inpatient (IN) | payer MEDICARE ==
[2021-01-14] MEDS ORDERED: ALBUTEROL 2.5 MG/3 ML NEBU IH ONE ×2 (19:31→19:57)
[2021-01-14] MEDS ORDERED: IPRATROPIUM 0.02% NEBU 2.5 ML IH ONE ×2 (19:31→19:57)
[2021-01-14] MEDS ORDERED: ETOMIDATE 20 MG/10 ML INJ IV ONE ×2 (19:40→19:49)
[2021-01-14] MEDS ORDERED: SUCCINYLCHOLINE CHLORIDE 200 MG/10 ML INJ MDV ONE (19:40)
[2021-01-14] MEDS ORDERED: SUCCINYLCHOLINE CHLORIDE 200 MG/10 ML INJ MDV IV ONE (19:49)
[2021-01-14] MEDS ORDERED: MAGNESIUM SULFATE 2 GM/50 ML BAG IV ONE ×2 (19:57→23:50)
[2021-01-14 20:17] LABS: Hematocrit 35.1 % (30.3-42.9); Hemoglobin 11.8 gm/dl (10.1-14.3); Mean Corpuscular HGB Conc 34 % (30-34); Mean Corpuscular Volume 89 fl (79-97); Platelet Count 281 K/mm3 (140-440); Red Blood Count 3.96 M/mm3 (3.65-5.03); Red Cell Distribution Width 13.7 % (13.2-15.2)
[2021-01-14] MEDS ORDERED: LORazepam 2 MG/ML VIAL IV ONE (20:24)
[2021-01-14 20:27] LABS: INR 1.6 (0.87-1.13)
[2021-01-14 20:28] LABS: Partial Thromboplastin Time 27.8 Sec. (24.2-36.6)
--- NOTE | 2021-01-14 20:29 | Emergency Department Report ---
ED Shortness of Breath HPI - General Chief Complaint: Dyspnea/Respdistress Stated Complaint: Difficulty breathing Time Seen by Provider: 01/14/21 19:45 Source: EMS Mode of arrival: Stretcher Limitations: Altered Mental Status - History of Present Illness Initial Comments: 55-year-old female, history of asthma, CHF, presents to ED via EMS for difficulty breathing. EMS reports they received a call for asthma attack. When they arrived at patient's home, patient was unresponsive, with agonal breathing, pinpoint pupils, and O2 sats in the 50s. Narcan was given, patient woke up and began talking. Patient arrives in ED anxious and agitated, screaming "I can't breathe." Patient given Ativan 1 mg to attempt nebulizer treatment. Patient found to have O2 sats in the 70s, breathing labored despite nebulizer, so decision was made to intubate. Per chart review from previous visit, patient has received her COVID-19 vaccine. MD Complaint: shortness of breath -: unknown Severity: severe Consistency: constant Known History Of: asthma Treatments Prior to Arrival: other (Narcan, Solu-Medrol) - Related Data Home Medications Medication Instructions Recorded Confirmed Last Taken metFORMIN [Glucophage] 500 mg PO QDAY 02/05/20 08/18/20 Unknown Previous Rx's Medication Instructions Recorded Last Taken Type Furosemide [Lasix TAB] 20 mg PO DAILY@0600 #30 tablet 01/06/20 Unknown Rx Gabapentin 300 mg PO Q8HR #90 capsule 01/06/20 Unknown Rx Montelukast [Singulair] 10 mg PO QHS #30 tablet 01/06/20 Unknown Rx Pantoprazole [Protonix TAB] 40 mg PO QDAY #30 tablet 03/07/20 Unknown Rx Albuterol Mdi (or & Nicu Only) 2 puff IH QID PRN #1 inhalation 03/08/20 Unknown Rx [ProAir HFA Inhaler] Fluticasone [Flonase] 1 spray NS QDAY #1 bottle 05/07/20 Unknown Rx Ipratropium/Albuterol Sulfate 1 ampul IH Q6HR #1 box 05/07/20 Unknown Rx [DUONEB *Not for PRN Use*] Albuterol Sulfate [Proventil Hfa] 2 puff IH Q4HR PRN #1 hfa.aer.ad 05/18/20 Unknown Rx Apixaban [Eliquis] 5 mg PO Q12HR #60 tablet 08/19/20 Unknown Rx Arformoterol Nebu [Brovana Nebu] 15 mcg IH Q12HRT 30 Days ml 08/19/20 Unknown Rx Ascorbic Acid [Vitamin C] 500 mg PO BID #30 tablet 08/19/20 Unknown Rx Budesonide [Pulmicort Respules] 0.5 mg IH Q12HRT 30 Days nebu 08/19/20 Unknown Rx Metoprolol [Lopressor TAB] 25 mg PO Q8HR #90 tablet 08/19/20 Unknown Rx Prednisone [predniSONE 5 mg (6-Day 5 mg PO .TAPER #1 tab.ds.pk 08/19/20 Unknown Rx Pack, 21 Tabs)] Zinc Sulfate 220 mg PO QDAY #30 capsule 08/19/20 Unknown Rx guaiFENesin [Robitussin] 200 mg PO Q6H PRN #1 bottle 08/19/20 Unknown Rx Albuterol Sulfate [Proventil Hfa] 2 puff IH Q4HR PRN #1 hfa.aer.ad 09/20/20 Unknown Rx Benzonatate [Tessalon Perles] 100 mg PO Q8HR PRN #20 capsule 09/20/20 Unknown Rx Albuterol Mdi (or & Nicu Only) 2 puff IH QID PRN #8.5 gram 10/28/20 Unknown Rx [ProAir HFA Inhaler] Benzonatate [Tessalon Perles] 100 mg PO Q8HR PRN #20 capsule 10/28/20 Unknown Rx predniSONE [Deltasone] 50 mg PO QDAY #5 tab 10/28/20 Unknown Rx Albuterol Sulfate [Proair 90 mcg IH Q4H PRN #1 aer.pw.bas 12/17/20 Unknown Rx Digihaler] predniSONE [Deltasone] 20 mg PO QDAY #5 tab 12/17/20 Unknown Rx predniSONE [Deltasone] 50 mg PO QDAY #5 tab 01/07/21 Unknown Rx Allergies Allergy/AdvReac Type Severity Reaction Status Date / Time amoxicillin Allergy Anaphylaxis Verified 01/07/21 18:36 Penicillins Allergy Rash Verified 01/07/21 18:36 seafood Allergy Severe Anaphylaxis Uncoded 03/16/17 01:08 peanuts Allergy Anaphylaxis Uncoded 09/20/19 12:06 ED Review of Systems ROS: Stated complaint: CARDIAC ARREST Other details as noted in HPI Comment: Unobtainable due to pts medical conditions ED Past Medical Hx - Past Medical History Hx Hypertension: Yes Hx Heart Attack/AMI: No Hx Congestive Heart Failure: Yes Hx Diabetes: Yes Hx Pulmonary Embolism: No Hx GERD: Yes Hx Liver Disease: No Hx Renal Disease: No Hx Sickle Cell Disease: No Hx Arthritis: Yes Hx Headaches / Migraines: No Hx Seizures: No Hx Kidney Stones: No Hx Psychiatric Treatment: Yes (Anxiety) Hx Asthma: Yes Hx COPD: Yes Hx Tuberculosis: No Hx HIV: No Additional medical history: Intubated x 9. heart murmur. osteoporosis. hearing loss in [place] - Surgical History Hx Coronary Stent: No Hx Open Heart Surgery: No Hx Pacemaker: No Hx Internal Defibrillator: No Hx Cholecystectomy: No Hx Appendectomy: No Hx Breast Surgery: No Additional Surgical History: cataracts, nasal surg, tubal ligation. bilateral foot. Left shoulder surgery, R. knee sx / EYE SURGERY - Social History Smoking Status: Unknown if ever smoked Substance Use Type: None - Medications Home Medications: Home Medications Medication Instructions Recorded Confirmed Last Taken Type Furosemide [Lasix TAB] 20 mg PO DAILY@0600 #30 tablet 01/06/20 08/18/20 Unknown Rx Gabapentin 300 mg PO Q8HR #90 capsule 01/06/20 08/18/20 Unknown Rx Montelukast [Singulair] 10 mg PO QHS #30 tablet 01/06/20 08/18/20 Unknown Rx metFORMIN [Glucophage] 500 mg PO QDAY 02/05/20 08/18/20 Unknown History Pantoprazole [Protonix TAB] 40 mg PO QDAY #30 tablet 03/07/20 08/18/20 Unknown Rx Albuterol Mdi (or & Nicu Only) 2 puff IH QID PRN #1 inhalation 03/08/20 08/18/20 Unknown Rx [ProAir HFA Inhaler] Fluticasone [Flonase] 1 spray NS QDAY #1 bottle 05/07/20 08/18/20 Unknown Rx Ipratropium/Albuterol Sulfate 1 ampul IH Q6HR #1 box 05/07/20 08/18/20 Unknown Rx [DUONEB *Not for PRN Use*] Albuterol Sulfate [Proventil Hfa] 2 puff IH Q4HR PRN #1 hfa.aer.ad 05/18/20 08/18/20 Unknown Rx Apixaban [Eliquis] 5 mg PO Q12HR #60 tablet 08/19/20 Unknown Rx Arformoterol Nebu [Brovana Nebu] 15 mcg IH Q12HRT 30 Days ml 08/19/20 Unknown Rx Ascorbic Acid [Vitamin C] 500 mg PO BID #30 tablet 08/19/20 Unknown Rx Budesonide [Pulmicort Respules] 0.5 mg IH Q12HRT 30 Days nebu 08/19/20 Unknown Rx Metoprolol [Lopressor TAB] 25 mg PO Q8HR #90 tablet 08/19/20 Unknown Rx Prednisone [predniSONE 5 mg (6-Day 5 mg PO .TAPER #1 tab.ds.pk 08/19/20 Unknown Rx Pack, 21 Tabs)] Zinc Sulfate 220 mg PO QDAY #30 capsule 08/19/20 Unknown Rx guaiFENesin [Robitussin] 200 mg PO Q6H PRN #1 bottle 08/19/20 Unknown Rx Albuterol Sulfate [Proventil Hfa] 2 puff IH Q4HR PRN #1 hfa.aer.ad 09/20/20 Unknown Rx Benzonatate [Tessalon Perles] 100 mg PO Q8HR PRN #20 capsule 09/20/20 Unknown Rx Albuterol Mdi (or & Nicu Only) 2 puff IH QID PRN #8.5 gram 10/28/20 Unknown Rx [ProAir HFA Inhaler] Benzonatate [Tessalon Perles] 100 mg PO Q8HR PRN #20 capsule 10/28/20 Unknown Rx predniSONE [Deltasone] 50 mg PO QDAY #5 tab 10/28/20 Unknown Rx Albuterol Sulfate [Proair 90 mcg IH Q4H PRN #1 aer.pw.bas 12/17/20 Unknown Rx Digihaler] predniSONE [Deltasone] 20 mg PO QDAY #5 tab 12/17/20 Unknown Rx predniSONE [Deltasone] 50 mg PO QDAY #5 tab 01/07/21 Unknown Rx ED Physical Exam - General Limitations: Altered Mental Status General appearance: alert, anxious - Head Head exam: Present: atraumatic, normocephalic - Eye Eye exam: Present: normal appearance, EOMI - ENT ENT exam: Present: mucous membranes dry - Neck Neck exam: Present: normal inspection - Respiratory Respiratory exam: Present: respiratory distress, decreased breath sounds, other (Tachypnea present) - Cardiovascular Cardiovascular Exam: Present: normal rhythm, tachycardia - GI/Abdominal GI/Abdominal exam: Present: soft. Absent: distended, tenderness - Extremities Exam Extremities exam: Present: normal inspection - Neurological Exam Neurological exam: Present: alert, other (Moving all extremities, not following commands) - Psychiatric Psychiatric exam: Present: agitated, anxious - Skin Skin exam: Present: warm, dry, intact, normal color ED Course Vital Signs 01/14/21 01/14/21 01/14/21 19:32 19:47 20:00 Temperature Pulse Rate 122 H 107 H 119 H Respiratory 32 H 11 L 23 Rate Blood Pressure 168/102 O2 Sat by Pulse 77 L 100 Oximetry 01/14/21 01/14/21 01/14/21 20:10 20:16 20:30 Temperature Pulse Rate 70 108 H 113 H Respiratory 19 25 H Rate Blood Pressure 123/73 117/91 126/91 O2 Sat by Pulse 100 100 99 Oximetry 01/14/21 01/14/21 01/14/21 20:46 21:00 21:15 Temperature Pulse Rate 100 H 99 H 93 H Respiratory 20 21 20 Rate Blood Pressure 106/76 119/82 109/55 O2 Sat by Pulse 100 100 100 Oximetry 01/14/21 01/14/21 01/14/21 21:30 21:46 22:00 Temperature Pulse Rate 86 81 77 Respiratory 20 20 20 Rate Blood Pressure 100/66 97/69 104/71 O2 Sat by Pulse 100 100 100 Oximetry 01/14/21 01/14/21 01/14/21 22:16 22:30 22:45 Temperature Pulse Rate 79 74 72 Respiratory 20 20 20 Rate Blood Pressure 135/92 128/82 139/87 O2 Sat by Pulse 100 100 100 Oximetry 01/14/21 01/14/21 01/14/21 23:00 23:16 23:30 Temperature Pulse Rate 68 70 69 Respiratory 20 20 20 Rate Blood Pressure 121/78 120/78 127/81 O2 Sat by Pulse 100 100 100 Oximetry 01/14/21 01/15/21 01/15/21 23:46 00:00 00:16 Temperature Pulse Rate 67 69 67 Respiratory 20 20 20 Rate Blood Pressure 123/77 114/71 112/68 O2 Sat by Pulse 100 100 100 Oximetry 01/15/21 01/15/21 00:30 01:02 Temperature 98.2 F Pulse Rate 64 Respiratory 20 Rate Blood Pressure 117/69 O2 Sat by Pulse 100 Oximetry - Intubation Time Out Performed: Yes Sedative: Etomidate Mg Given: 20 Paralytic: Succinylcholine Mg Given: 150 Laryngoscope: fiberoptic video scope Size: 4 ET Tube Size: 7.5 Tube Secured Depth (cm): 20 Tube Secured Location: lips Tube Placement Confirmation: visualized tube passing t, equal breath sounds bila t, no breath sounds over epi, confirmation by capnometr Patient Tolerated Procedure: well Intubation Complications: none ED Medical Decision Making - Lab Data Result diagrams: 01/14/21 19:54 01/14/21 19:54 - Radiology Data Radiology results: report reviewed, image reviewed - Medical Decision Making 55-year-old female presents to ED in respiratory distress. Patient intubated upon arrival. She was given Solu-Medrol by EMS. Mag sulfate administered. Here in the ED. Patient has white count of 15 with elevated lactic acid and possible pneumonia versus pulmonary edema on chest x-ray. Patient was covered with Levaquin for possible pneumonia. Blood cultures drawn. There is some question about whether or not patient was having respiratory distress secondary to possible narcotics, since EMS reported improvement with Narcan. However, drug screen is negative. Patient will be admitted by hospitalist, Dr. Zabala, for further management. - Differential Diagnosis Asthma, pneumonia, CHF, drug abuse Critical Care Time: Yes Critical care time in (mins) excluding proc time.: 35 Critical care attestation.: If time is entered above; I have spent that time in minutes in the direct care of this critically ill patient, excluding procedure time. Critical Care Time: 35 min ED Disposition Clinical Impression: Acute respiratory failure with hypoxia, Asthma exacerbation Disposition: ADMITTED INPATIENT Is pt being admited?: Yes Condition: Stable
--- NOTE | 2021-01-14 20:31 | XRay Report ---
CHEST 1 VIEW 01/14/2021 7:19 PM INDICATION / CLINICAL INFORMATION: sob, post-intubation. COMPARISON: 01/07/2021 FINDINGS: SUPPORT DEVICES: Endotracheal tube and NG tube in satisfactory position. HEART / MEDIASTINUM: No significant abnormality. LUNGS / PLEURA: Mild increased markings at the upper zone and right greater than left. No pneumothora x. ADDITIONAL FINDINGS: No significant additional findings. IMPRESSION: 1. Lines and tubes in satisfactory position. 2. Asymmetric vascular congestion/edema versus developing pneumonia. Signer Name: Ricardo Castaneda MD Signed: 01/14/2021 8:26 PM Workstation Name: [id number]
[2021-01-14 20:37] LABS: Alanine Aminotransferase 190 units/L (7-56); Albumin 3.8 g/dL (3.9-5); BUN/Creatinine Ratio 11; Blood Urea Nitrogen 12 mg/dL (7-17); Calcium 8.1 mg/dL (8.4-10.2); Hemolysis Index 31
[2021-01-14] MEDS ORDERED: SODIUM CHLORIDE 0.9% 1000 ML IV SOLN IV ONE (20:59)
[2021-01-14 21:21] LABS: Total Cells Counted 100
[2021-01-14 21:22] LABS: Anisocytosis 1+; Band Neutrophils # (Manual) 0.8 K/mm3; Burr Cells 1+; Ovalocytes Few; Platelet Estimate Consistent w Auto; Poikilocytosis 2+
[2021-01-14 21:38] LABS: Amphetamine Screen,Urine Negative; Benzodiazepines Screen,Urine Negative; Cannabinoid Screen,Urine Negative; Cocaine Screen,Urine Negative; Methadone Screen,Urine Negative; Opiate Screen,Urine Negative
[2021-01-14 22:05] LABS: Hyaline Casts,Urine 28 /LPF; Mucus,Urine FEW /HPF
[2021-01-14 22:11] LABS: Bilirubin,Urine Negative (Negative); Blood,Urine Negative (Negative); Color,Urine Straw (Yellow); Protein,Urine >500 mg/dL (Negative); Urobilinogen,Urine < 2.0 mg/dL (<2.0)
[2021-01-14] MEDS ORDERED: MORPHINE 2 MG/1 ML INJ IV PRN (22:21)
[2021-01-14] MEDS ORDERED: MAGNESIUM HYDROXIDE (MOM) ORAL LIQD UDC PO PRN (22:21)
[2021-01-14] MEDS ORDERED: ACETAMINOPHEN 325 MG TAB PO PRN (22:21)
[2021-01-14] MEDS ORDERED: MORPHINE 4 MG/1 ML INJ IV PRN (22:21)
[2021-01-14] MEDS ORDERED: ONDANSETRON 4 MG/2 ML INJ IV PRN (22:21)
--- NOTE | 2021-01-14 22:33 | History and Physical Report ---
History of Present Illness Date of examination: 01/14/21 Date of admission: 01/14/2021 Chief complaint: Shortness of Breath History of present illness: 55-year-old female with known history of CHF, asthma brought into the emergency room via EMS today for asthma exacerbation. Patient was said to be unresponsive and had a can of breathing with pinpoint pupils upon arrival of the EMS. Initial oxygen saturation was in the 50s. Patient was given some Narcan with im provement in her responsiveness. However she became agitated and stating she cannot breathe. She got some nebulizing treatments with some improvement in her oxygen saturation. Upon arrival in the emergency room patient was still having labored breathing despite the nebulizing treatments. She was subsequently intubated in the emergency room. Patient has been intubated on multiple occasions in the past. Chart review from previous visit indicates patient has been vaccinated against COVID-19. Work up in the ER, significant findings were lactic acid of 5.10, WBC of 15.8 Chest x-ray reveals: 1. Lines and tubes in satisfactory position. 2. Asymmetric vascular congestion/edema versus developing pneumonia. Past History Past Medical History: COPD, diabetes, GERD, heart failure, other ( Intubated x 9. heart murmur. osteoporosis. hearing loss in [place]) Past Surgical History: Other (cataracts, nasal surg, tubal ligation. bilateral foot. Left shoulder surgery, R. knee sx / EYE SURGERY) Social history: no significant social history Family history: no significant family history Medications and Allergies Allergies Allergy/AdvReac Type Severity Reaction Status Date / Time amoxicillin Allergy Anaphylaxis Verified 01/07/21 18:36 Penicillins Allergy Rash Verified 01/07/21 18:36 seafood Allergy Severe Anaphylaxis Uncoded 03/16/17 01:08 peanuts Allergy Anaphylaxis Uncoded 09/20/19 12:06 Home Medications Medication Instructions Recorded Confirmed Last Taken Type Furosemide [Lasix TAB] 20 mg PO DAILY@0600 #30 tablet 01/06/20 08/18/20 Unknown Rx Gabapentin 300 mg PO Q8HR #90 capsule 01/06/20 08/18/20 Unknown Rx Montelukast [Singulair] 10 mg PO QHS #30 tablet 01/06/20 08/18/20 Unknown Rx metFORMIN [Glucophage] 500 mg PO QDAY 02/05/20 08/18/20 Unknown History Pantoprazole [Protonix TAB] 40 mg PO QDAY #30 tablet 03/07/20 08/18/20 Unknown Rx Albuterol Mdi (or & Nicu Only) 2 puff IH QID PRN #1 inhalation 03/08/20 08/18/20 Unknown Rx [ProAir HFA Inhaler] Fluticasone [Flonase] 1 spray NS QDAY #1 bottle 05/07/20 08/18/20 Unknown Rx Ipratropium/Albuterol Sulfate 1 ampul IH Q6HR #1 box 05/07/20 08/18/20 Unknown Rx [DUONEB *Not for PRN Use*] Albuterol Sulfate [Proventil Hfa] 2 puff IH Q4HR PRN #1 hfa.aer.ad 05/18/20 08/18/20 Unknown Rx Apixaban [Eliquis] 5 mg PO Q12HR #60 tablet 08/19/20 Unknown Rx Arformoterol Nebu [Brovana Nebu] 15 mcg IH Q12HRT 30 Days ml 08/19/20 Unknown Rx Ascorbic Acid [Vitamin C] 500 mg PO BID #30 tablet 08/19/20 Unknown Rx Budesonide [Pulmicort Respules] 0.5 mg IH Q12HRT 30 Days nebu 08/19/20 Unknown Rx Metoprolol [Lopressor TAB] 25 mg PO Q8HR #90 tablet 08/19/20 Unknown Rx Prednisone [predniSONE 5 mg (6-Day 5 mg PO .TAPER #1 tab.ds.pk 08/19/20 Unknown Rx Pack, 21 Tabs)] Zinc Sulfate 220 mg PO QDAY #30 capsule 08/19/20 Unknown Rx guaiFENesin [Robitussin] 200 mg PO Q6H PRN #1 bottle 08/19/20 Unknown Rx Albuterol Sulfate [Proventil Hfa] 2 puff IH Q4HR PRN #1 hfa.aer.ad 09/20/20 Unknown Rx Benzonatate [Tessalon Perles] 100 mg PO Q8HR PRN #20 capsule 09/20/20 Unknown Rx Albuterol Mdi (or & Nicu Only) 2 puff IH QID PRN #8.5 gram 10/28/20 Unknown Rx [ProAir HFA Inhaler] Benzonatate [Tessalon Perles] 100 mg PO Q8HR PRN #20 capsule 10/28/20 Unknown Rx predniSONE [Deltasone] 50 mg PO QDAY #5 tab 10/28/20 Unknown Rx Albuterol Sulfate [Proair 90 mcg IH Q4H PRN #1 aer.pw.bas 12/17/20 Unknown Rx Digihaler] predniSONE [Deltasone] 20 mg PO QDAY #5 tab 12/17/20 Unknown Rx predniSONE [Deltasone] 50 mg PO QDAY #5 tab 01/07/21 Unknown Rx Active Meds: Active Medications Acetaminophen (Acetaminophen 325 Mg Tab) 650 mg PO Q6H PRN PRN Reason: Pain MILD(1-3)/Fever >100.5/ANTONIO Albuterol/Ipratropium (Ipratropium/Albuterol Sulfate 3 Ml Ampul.Neb) 1 ampul IH Q6HRT REANNA Propofol (Diprivan 10 Mg/Ml) 1,000 mg in 100 mls @ 2.585 mls/hr IV TITR REANNA; Protocol Levofloxacin/Dextrose (Levaquin 750mg/150ml) 750 mg in 150 mls @ 100 mls/hr IV ONCE ONE; Protocol Stop: 01/14/21 22:30 Magnesium Hydroxide (Magnesium Hydroxide (Mom) Oral Liqd Udc) 30 ml PO Q4H PRN PRN Reason: Constipation Methylprednisolone Sodium Succinate (Methylprednisolone Sod Succinate 40 Mg/1 Ml Inj) 40 mg IV Q8HR REANNA Morphine Sulfate (Morphine 2 Mg/1 Ml Inj) 2 mg IV Q4H PRN PRN Reason: Pain, Moderate (4-6) Morphine Sulfate (Morphine 4 Mg/1 Ml Inj) 4 mg IV Q4H PRN PRN Reason: Pain , Severe (7-10) Ondansetron HCl (Ondansetron 4 Mg/2 Ml Inj) 4 mg IV Q8H PRN PRN Reason: Nausea And Vomiting Sodium Chloride (Sodium Chloride 0.9% 10 Ml Flush Syringe) 10 ml IV BID REANNA Sodium Chloride (Sodium Chloride 0.9% 10 Ml Flush Syringe) 10 ml IV PRN PRN PRN Reason: LINE FLUSH Review of Systems ROS unobtainable: due to endotracheal tube Exam - Constitutional Vitals: Temp Pulse Resp BP Pulse Ox 122 H 32 H 77 L 01/14/21 19:32 01/14/21 19:32 01/14/21 19:32 General appearance: Present: no acute distress, well-nourished, other (Intubated and Sedated) - EENT Eyes: Present: PERRL, EOM intact. Absent: scleral icterus ENT: hearing intact, clear oral mucosa, dentition normal - Neck Neck: Present: supple, normal ROM - Respiratory Respiratory effort: normal Respiratory: bilateral: diminished - Cardiovascular Rhythm: regular Heart Sounds: Present: S1 & S2. Absent: gallop, systolic murmur, diastolic murmur, rub, click - Extremities Extremities: no ischemia, pulses intact, pulses symmetrical, No edema, normal temperature, normal color, Full ROM Peripheral Pulses: within normal limits - Abdominal General gastrointestinal: Present: soft, non-tender, non-distended, normal bowel sounds. Absent: mass - Integumentary Integumentary: Present: clear, warm, dry. Absent: rash - Musculoskeletal Musculoskeletal: strength equal bilaterally - Psychiatric Psychiatric: other (Intubated and Sedated) - Neurologic Neurologic: no focal deficits, other (Intubated and Sedated.) HEART Score - HEART Score Troponin: Troponin T < 0.010 ng/mL (0.00-0.029) 01/14/21 19:54 Results - Labs CBC & Chem 7: 01/15/21 04:26 01/15/21 04:26 Labs: Abnormal lab results 01/14/21 01/14/21 01/14/21 Range/Units 19:54 19:54 19:54 WBC 15.8 H (4.5-11.0) K/mm3 Seg Neuts % (Manual) 38.0 L (40.0-70.0) % Lymphocytes % (Manual) 54.0 H (13.4-35.0) % Lymphocytes # (Manual) 8.5 H (1.2-5.4) K/mm3 PT 19.5 H (12.2-14.9) Sec. INR 1.60 H (0.87-1.13) Sodium 136 L (137-145) mmol/L Carbon Dioxide 19 L (22-30) mmol/L Glucose 300 H (65-100) mg/dL Lactic Acid (0.7-2.0) mmol/L Calcium 8.1 L (8.4-10.2) mg/dL AST 289 H (5-40) units/L ALT 190 H (7-56) units/L Alkaline Phosphatase 161 H (35-129) units/L Albumin 3.8 L (3.9-5) g/dL Ur Specific [place] (1.003-1.030) Salicylates (2.8-20.0) mg/dL Acetaminophen (10.0-30.0) ug/mL 01/14/21 01/14/21 01/14/21 Range/Units 19:54 19:54 19:54 WBC (4.5-11.0) K/mm3 Seg Neuts % (Manual) (40.0-70.0) % Lymphocytes % (Manual) (13.4-35.0) % Lymphocytes # (Manual) (1.2-5.4) K/mm3 PT (12.2-14.9) Sec. INR (0.87-1.13) Sodium (137-145) mmol/L Carbon Dioxide (22-30) mmol/L Glucose (65-100) mg/dL Lactic Acid 5.10 H* (0.7-2.0) mmol/L Calcium (8.4-10.2) mg/dL AST (5-40) units/L ALT (7-56) units/L Alkaline Phosphatase (35-129) units/L Albumin (3.9-5) g/dL Ur Specific [place] (1.003-1.030) Salicylates < 0.3 L (2.8-20.0) mg/dL Acetaminophen 5.9 L (10.0-30.0) ug/mL 01/14/21 Range/Units 21:20 WBC (4.5-11.0) K/mm3 Seg Neuts % (Manual) (40.0-70.0) % Lymphocytes % (Manual) (13.4-35.0) % Lymphocytes # (Manual) (1.2-5.4) K/mm3 PT (12.2-14.9) Sec. INR (0.87-1.13) Sodium (137-145) mmol/L Carbon Dioxide (22-30) mmol/L Glucose (65-100) mg/dL Lactic Acid (0.7-2.0) mmol/L Calcium (8.4-10.2) mg/dL AST (5-40) units/L ALT (7-56) units/L Alkaline Phosphatase (35-129) units/L Albumin (3.9-5) g/dL Ur Specific [place] 1.035 H (1.003-1.030) Salicylates (2.8-20.0) mg/dL Acetaminophen (10.0-30.0) ug/mL Assessment and Plan - Patient Problems (1) Acute respiratory failure with hypoxia Current Visit: Yes Status: Acute Plan to address problem: Possibly secondary to asthma exacerbation versus underlying pneumonia. Patient currently intubated and admitted into the intensive care unit. Placed on empiric IV antibiotics. Will await evaluation by regional business development manager. (2) Asthma exacerbation Current Visit: Yes Status: Acute Plan to address problem: Patient placed on nebulizing treatments and IV steroid. (3) Diabetes 1.5, managed as type 2 Current Visit: No Status: Chronic Plan to address problem: We will monitor Accu-Cheks closely. (4) HTN (hypertension) Current Visit: No Status: Chronic Qualifiers: Hypertension type: unspecified Qualified Code(s): I10 - Essential (primary) hypertension Plan to address problem: We will resume routine home medications once patient able to tolerate p.o. intake. We will monitor vital signs closely. (5) DVT prophylaxis Current Visit: No Status: Acute Plan to address problem: Patient placed on subcutaneous Lovenox. (6) Full code status Current Visit: Yes Status: Acute Plan to address problem: Patient is full code.
[2021-01-14] MEDS ORDERED: DEXTROSE 50% IN WATER (25GM) 50 ML SYRINGE IV PRN (22:37)
[2021-01-14] MEDS ORDERED: LORazepam 2 MG/ML VIAL ONE (22:57)
[2021-01-14] MEDS ORDERED: SODIUM CHLORIDE 0.9% 1000 ML 3,000 ML ONE (23:07)
[2021-01-14] MEDS: fentaNYL DRIP Premix 2,000 MCG/100 ML BAG IV SCH (23:10)
[2021-01-15 01:59] LABS: ABG Base Excess 0.2 mmol/L (-2.0-3.0); ABG HCO3 24.5 mmol/L (20.0-26.0); ABG Methemoglobin 0.5 % (0.0-1.5); ABG Oxygen Saturation 99.3 % (95.0-99.0); ABG PCO2 38.6 mm Hg; ABG PH 7.421 pH Units (7.350-7.450); ABG PO2 211.1 mm Hg (80.0-90.0)
[2021-01-15 04:46] LABS: Basophils % (Auto) 0.1 % (0.0-1.8); Hemoglobin 10.9 gm/dl (10.1-14.3); Lymphocytes # (Auto) 0.6 K/mm3 (1.2-5.4); Lymphocytes % (Auto) 7.8 % (13.4-35.0); Mean Corpuscular HGB Conc 34 % (30-34); Mean Corpuscular Volume 87 fl (79-97); Monocytes # (Auto) 0.3 K/mm3 (0.0-0.8); Platelet Count 198 K/mm3 (140-440); Red Blood Count 3.67 M/mm3 (3.65-5.03); Red Cell Distribution Width 13.9 % (13.2-15.2)
[2021-01-15 04:56] LABS: INR 1.61 (0.87-1.13)
[2021-01-15 05:04] LABS: BUN/Creatinine Ratio 14; Blood Urea Nitrogen 11 mg/dL (7-17); Calcium 7.8 mg/dL (8.4-10.2); Hemolysis Index 7
[2021-01-15] MEDS: IPRATROPIUM/ALBUTEROL SULFATE 3 ML AMPUL.NEB IH SCH ×4 (05:06→20:33)
[2021-01-15] MEDS: methylPREDNISolone Sod Succinate 40 MG/1 ML INJ IV SCH ×3 (06:17→22:00)
[2021-01-15] MEDS ORDERED: INSULIN LISPRO 100 UNIT/ML SUB-Q SCH (07:30)
--- NOTE | 2021-01-15 08:35 | Progress Note ---
Assessment and Plan Assessment and plan: #Acute hypoxic respiratory failure -On mechanical ventilation -propofol and fentanyl -check TG level while on propofol -Critical care consulted, recs appreciated #Acute asthma exacerbation -patient with extensive history and visits for asthma exacerbation -has been intubated multiple times -continue steroids for now #Lactic acidosis -resolved -initial lactate of 5.1, downtrended to 2 #Elevated liver enzymes -AST 289, ALT 190 #Hx Congestive heart failure -BNP 192 -CXR with vascular congestion -TTE 09/2019: EF 40-45% -will order TTE during this hospitalization #Hypertension -soft blood pressures while inpatient -home blood pressure medications #History of diabetes -SSI for now #History of atrial fibrillation -seen per chart review of previous hospitalizations -was taking eliquis #CODE STATUS -Full code Disposition Plan: Continue medical management Total Time Spent with Patient (Minutes): 60 minutes History Interval history: No acute events overnight. Sedation increased due to patient biting tube. Currently intubated. Hospitalist Physical - Physical exam Narrative exam: GENERAL: Well-developed well-nourished. Intubated and sedated. HEENT: ETT and LUCY in place CHEST/LUNGS: CTAB on room air HEART/CARDIOVASCULAR: RRR. No murmur, rubs or gallops appreciated. ABDOMEN: +BS. NT/ND. NEURO: Unable to assess EXTREMITIES: No cyanosis, cLubbing or edema. PSYCH: Unable to assess - Constitutional Vitals: Temp Pulse Resp BP Pulse Ox 98.2 F 80 18 123/67 100 01/15/21 01:02 01/15/21 07:46 01/15/21 08:31 01/15/21 07:46 01/15/21 08:31 General appearance: Present: no acute distress, well-nourished, other (Intubated and Sedated) HEART Score - HEART Score Troponin: Troponin T < 0.010 ng/mL (0.00-0.029) 01/14/21 19:54 Results - Labs CBC & Chem 7: 01/16/21 00:50 01/16/21 00:50 Labs: Laboratory Last Values WBC 7.6 K/mm3 (4.5-11.0) 01/15/21 04:26 RBC 3.67 M/mm3 (3.65-5.03) 01/15/21 04:26 Hgb 10.9 gm/dl (10.1-14.3) 01/15/21 04:26 Hct 32.0 % (30.3-42.9) 01/15/21 04:26 MCV 87 fl (79-97) 01/15/21 04:26 MCH 30 pg (28-32) 01/15/21 04:26 MCHC 34 % (30-34) 01/15/21 04:26 RDW 13.9 % (13.2-15.2) 01/15/21 04:26 Plt Count 198 K/mm3 (140-440) 01/15/21 04:26 Lymph % (Auto) 7.8 % (13.4-35.0) L 01/15/21 04:26 [place] % (Auto) 4.0 % (0.0-7.3) 01/15/21 04:26 Eos % (Auto) 0.0 % (0.0-4.3) 01/15/21 04:26 Baso % (Auto) 0.1 % (0.0-1.8) 01/15/21 04:26 Lymph # (Auto) 0.6 K/mm3 (1.2-5.4) L 01/15/21 04:26 [place] # (Auto) 0.3 K/mm3 (0.0-0.8) 01/15/21 04:26 Eos # (Auto) 0.0 K/mm3 (0.0-0.4) 01/15/21 04:26 Baso # (Auto) 0.0 K/mm3 (0.0-0.1) 01/15/21 04:26 Add Manual Diff Complete 01/14/21 19:54 Total Counted 100 01/14/21 19:54 Seg Neutrophils % 88.1 % (40.0-70.0) H 01/15/21 04:26 Seg Neuts % (Manual) 38.0 % (40.0-70.0) L 01/14/21 19:54 Band Neutrophils % 5.0 % 01/14/21 19:54 Lymphocytes % (Manual) 54.0 % (13.4-35.0) H 01/14/21 19:54 Monocytes % (Manual) 1.0 % (0.0-7.3) 01/14/21 19:54 Eosinophils % (Manual) 1.0 % (0.0-4.3) 01/14/21 19:54 Metamyelocytes % 1.0 % 01/14/21 19:54 Nucleated RBC % Not Reportable 01/14/21 19:54 Seg Neutrophils # 6.7 K/mm3 (1.8-7.7) 01/15/21 04:26 Seg Neutrophils # Man 6.0 K/mm3 (1.8-7.7) 01/14/21 19:54 Band Neutrophils # 0.8 K/mm3 01/14/21 19:54 Lymphocytes # (Manual) 8.5 K/mm3 (1.2-5.4) H 01/14/21 19:54 Abs React Lymphs (Man) 0.0 K/mm3 01/14/21 19:54 Monocytes # (Manual) 0.2 K/mm3 (0.0-0.8) 01/14/21 19:54 Eosinophils # (Manual) 0.2 K/mm3 (0.0-0.4) 01/14/21 19:54 Basophils # (Manual) 0.0 K/mm3 (0.0-0.1) 01/14/21 19:54 Metamyelocytes # 0.2 K/mm3 01/14/21 19:54 Myelocytes # 0.0 K/mm3 01/14/21 19:54 Promyelocytes # 0.0 K/mm3 01/14/21 19:54 Blast Cells # 0.0 K/mm3 01/14/21 19:54 WBC Morphology Not Reportable 01/14/21 19:54 Hypersegmented Neuts Not Reportable 01/14/21 19:54 Hyposegmented Neuts Not Reportable 01/14/21 19:54 Hypogranular Neuts Not Reportable 01/14/21 19:54 Smudge Cells Not Reportable 01/14/21 19:54 Toxic Granulation Not Reportable 01/14/21 19:54 Toxic Vacuolation Not Reportable 01/14/21 19:54 Dohle Bodies Not Reportable 01/14/21 19:54 Pelger-Huet Anomaly Not Reportable 01/14/21 19:54 Giuseppe Rods Not Reportable 01/14/21 19:54 Platelet Estimate Consistent w auto 01/14/21 19:54 Clumped Platelets Not Reportable 01/14/21 19:54 Plt Clumps, EDTA Not Reportable 01/14/21 19:54 Large Platelets Not Reportable 01/14/21 19:54 Giant Platelets Not Reportable 01/14/21 19:54 Platelet Satelliting Not Reportable 01/14/21 19:54 Plt Morphology Comment Not Reportable 01/14/21 19:54 RBC Morphology Not Reportable 01/14/21 19:54 Dimorphic RBCs Not Reportable 01/14/21 19:54 Polychromasia Not Reportable 01/14/21 19:54 Hypochromasia Not Reportable 01/14/21 19:54 Poikilocytosis 2+ 01/14/21 19:54 Anisocytosis 1+ 01/14/21 19:54 Microcytosis Not Reportable 01/14/21 19:54 Macrocytosis Not Reportable 01/14/21 19:54 Spherocytes Not Reportable 01/14/21 19:54 Pappenheimer Bodies Not Reportable 01/14/21 19:54 Sickle Cells Not Reportable 01/14/21 19:54 Target Cells Not Reportable 01/14/21 19:54 Tear Drop Cells Not Reportable 01/14/21 19:54 Ovalocytes Few 01/14/21 19:54 Helmet Cells Not Reportable 01/14/21 19:54 [place] Bodies Not Reportable 01/14/21 19:54 [place] Rings Not Reportable 01/14/21 19:54 Se[place]our Cells 1+ 01/14/21 19:54 Bite Cells Not Reportable 01/14/21 19:54 Crenated Cell Not Reportable 01/14/21 19:54 Elliptocytes Few 01/14/21 19:54 Acanthocytes (Spur) Not Reportable 01/14/21 19:54 Rouleaux Not Reportable 01/14/21 19:54 Hemoglobin C Crystals Not Reportable 01/14/21 19:54 Schistocytes Not Reportable 01/14/21 19:54 Malaria parasites Not Reportable 01/14/21 19:54 Alfonso Bodies Not Reportable 01/14/21 19:54 Hem Pathologist Commnt No 01/14/21 19:54 PT 19.6 Sec. (12.2-14.9) H 01/15/21 04:26 INR 1.61 (0.87-1.13) H 01/15/21 04:26 APTT 27.8 Sec. (24.2-36.6) 01/14/21 19:54 ABG pH 7.421 pH Units (7.350-7.450) 01/15/21 01:39 ABG pCO2 38.6 mm Hg 01/15/21 01:39 ABG pO2 211.1 mm Hg (80.0-90.0) H 01/15/21 01:39 ABG HCO3 24.5 mmol/L (20.0-26.0) 01/15/21 01:39 ABG O2 Saturation 99.3 % (95.0-99.0) H 01/15/21 01:39 ABG O2 Content 15.5 (0.0-44) 01/15/21 01:39 ABG Base Excess 0.2 mmol/L (-2.0-3.0) 01/15/21 01:39 ABG Hemoglobin 10.9 gm/dl (12.0-16.0) L 01/15/21 01:39 ABG Carboxyhemoglobin 1.1 % (0.0-5.0) 01/15/21 01:39 ABG Methemoglobin 0.5 % (0.0-1.5) 01/15/21 01:39 Oxyhemoglobin 97.7 % (95.0-99.0) 01/15/21 01:39 FiO2 50 % 01/15/21 01:39 Sodium 142 mmol/L (137-145) 01/15/21 04:26 Potassium 4.4 mmol/L (3.6-5.0) 01/15/21 04:26 Chloride 111.1 mmol/L (98-107) H 01/15/21 04:26 Carbon Dioxide 24 mmol/L (22-30) 01/15/21 04:26 Anion Gap 11 mmol/L 01/15/21 04:26 BUN 11 mg/dL (7-17) 01/15/21 04:26 Creatinine 0.8 mg/dL (0.6-1.2) 01/15/21 04:26 Estimated GFR > 60 ml/min 01/15/21 04:26 BUN/Creatinine Ratio 14 % 01/15/21 04:26 Glucose 168 mg/dL (65-100) H 01/15/21 04:26 POC Glucose 157 mg/dL (70-105) H 01/15/21 07:41 Lactic Acid 2.20 mmol/L (0.7-2.0) H* 01/15/21 04:26 Calcium 7.8 mg/dL (8.4-10.2) L 01/15/21 04:26 Total Bilirubin 0.20 mg/dL (0.1-1.2) 01/14/21 19:54 AST 289 units/L (5-40) H 01/14/21 19:54 ALT 190 units/L (7-56) H 01/14/21 19:54 Alkaline Phosphatase 161 units/L (35-129) H 01/14/21 19:54 Troponin T < 0.010 ng/mL (0.00-0.029) 01/14/21 19:54 NT-Pro-B Natriuret Pep 192.9 pg/mL (0-900) 01/14/21 19:54 Total Protein 6.7 g/dL (6.3-8.2) 01/14/21 19:54 Albumin 3.8 g/dL (3.9-5) L 01/14/21 19:54 Albumin/Globulin Ratio 1.3 % 01/14/21 19:54 Urine Color Straw (Yellow) 01/14/21 21:20 Urine Turbidity Hazy (Clear) 01/14/21 21:20 Urine pH 5.0 (5.0-7.0) 01/14/21 21:20 Ur Specific [place] 1.035 (1.003-1.030) H 01/14/21 21:20 Urine Protein >500 mg/dL (Negative) 01/14/21 21:20 Urine Glucose (UA) 500 mg/dL (Negative) 01/14/21 21:20 Urine Ketones Negative mg/dL (Negative) 01/14/21 21:20 Urine Blood Negative (Negative) 01/14/21 21:20 Urine Nitrite Negative (Negative) 01/14/21 21:20 Ur Reducing Substances Not Reportable 01/14/21 21:20 Urine Bilirubin Negative (Negative) 01/14/21 21:20 Urine Ictotest Not Reportable 01/14/21 21:20 Urine Urobilinogen < 2.0 mg/dL (<2.0) 01/14/21 21:20 Ur Leukocyte Esterase Negative (Negative) 01/14/21 21:20 Urine WBC (Auto) 5.0 /HPF (0.0-6.0) 01/14/21 21:20 Urine RBC (Auto) 3.0 /HPF (0.0-6.0) 01/14/21 21:20 U Epithel Cells (Auto) 5.0 /HPF (0-13.0) 01/14/21 21:20 Hyaline Casts 28 /LPF 01/14/21 21:20 Urine Mucus Few /HPF 01/14/21 21:20 Salicylates < 0.3 mg/dL (2.8-20.0) L 01/14/21 19:54 Urine Opiates Screen Negative 01/14/21 21:20 Urine Methadone Screen Negative 01/14/21 21:20 Acetaminophen 5.9 ug/mL (10.0-30.0) L 01/14/21 19:54 Ur Barbiturates Screen Negative 01/14/21 21:20 Ur Phencyclidine Scrn Negative 01/14/21 21:20 Ur Amphetamines Screen Negative 01/14/21 21:20 U Benzodiazepines Scrn Negative 01/14/21 21:20 Urine Cocaine Screen Negative 01/14/21 21:20 U Marijuana (THC) Screen Negative 01/14/21 21:20 Drugs of Abuse Note Disclamer 01/14/21 21:20 Plasma/Serum Alcohol < 0.01 % (0-0.07) 01/14/21 19:54 Microbiology: Microbiology 01/14/21 19:54 Peripheral/Venous Blood Culture - Preliminary Culture in Progress 01/14/21 20:03 Peripheral/Venous Blood Culture - Preliminary Culture in Progress Calderon/IV: Voiding Method Indwelling Catheter Active Medications - Current Medications Current Medications: Generic Name Dose Route Start Last Admin Trade Name Freq PRN Reason Stop Dose Admin Acetaminophen 650 mg 01/14/21 22:21 Acetaminophen 325 Mg Tab PO Q6H PRN Pain MILD(1-3)/Fever >100.5/ANTONIO Albuterol/Ipratropium 1 ampul 01/15/21 02:00 01/15/21 05:06 Ipratropium/Albuterol Sulfate 3 Ml Ampul.Neb IH Not Given Q6HRT REANNA Dextrose 50 ml 01/14/21 22:37 Dextrose 50% In Water (25gm) 50 Ml Syringe IV Q30MIN PRN Hypoglycemia Protocol Enoxaparin Sodium 40 mg 01/15/21 22:00 Enoxaparin 40 Mg/0.4 Ml Inj SUB-Q QDAY@2200 REANNA Protocol Propofol 1,000 mg in 100 mls @ 2.585 mls/hr 01/14/21 20:00 01/15/21 07:55 Diprivan 10 Mg/Ml IV 50 mcg/kg/min TITR REANNA 25.855 mls/hr Titration Protocol 5 MCG/KG/MIN Levofloxacin/Dextrose 750 mg in 150 mls @ 100 mls/hr 01/14/21 23:00 01/15/21 00:29 Levaquin 750mg/150ml IV 100 mls/hr Q24H REANNA Administration Protocol Fentanyl Citrate 2,000 mcg in 100 mls @ 3.901 mls/hr 01/14/21 23:00 01/15/21 07:55 Fentanyl Drip Premix IV 2 mcg/kg/hr TITR REANNA 7.802 mls/hr Titration Protocol 1 MCG/KG/HR Insulin Human Lispro 0 unit 01/15/21 07:30 01/15/21 08:30 Insulin Lispro 100 Unit/Ml SUB-Q 2 unit ACHS REANNA Administration Protocol Magnesium Hydroxide 30 ml 01/14/21 22:21 Magnesium Hydroxide (Mom) Oral Liqd Udc PO Q4H PRN Constipation Methylprednisolone Sodium Succinate 40 mg 01/15/21 06:00 01/15/21 06:17 Methylprednisolone Sod Succinate 40 Mg/1 Ml Inj IV 40 mg Q8HR REANNA Administration Morphine Sulfate 2 mg 01/14/21 22:21 Morphine 2 Mg/1 Ml Inj IV Q4H PRN Pain, Moderate (4-6) Morphine Sulfate 4 mg 01/14/21 22:21 Morphine 4 Mg/1 Ml Inj IV Q4H PRN Pain , Severe (7-10) Ondansetron HCl 4 mg 01/14/21 22:21 Ondansetron 4 Mg/2 Ml Inj IV Q8H PRN Nausea And Vomiting Sodium Chloride 10 ml 01/15/21 10:00 Sodium Chloride 0.9% 10 Ml Flush Syringe IV BID REANNA Sodium Chloride 10 ml 01/14/21 22:21 Sodium Chloride 0.9% 10 Ml Flush Syringe IV PRN PRN LINE FLUSH
[2021-01-15] MEDS ORDERED: fentaNYL 100 MCG/2 ML INJ IV PRN (09:09)
[2021-01-15] MEDS ORDERED: fentaNYL DRIP Premix 2,000 MCG/100 ML BAG IV SCH (10:00)
[2021-01-15] MEDS: INSULIN LISPRO 100 UNIT/ML SUB-Q SCH ×3 (11:35→17:59)
--- NOTE | 2021-01-15 12:13 | Consultation ---
History of Present Illness Consult date: 01/15/21 Requesting physician: TABITHA PRATHER Reason for consult: asthma (Acute Exacerbation), other (Acute Hypoxemic Respiratotry failure on MVS) History of present illness: PULMONARY/CCM CONSULT NOTE (Full dictation # [id number]) Please see dictated notes for full details Past History Past Medical History: COPD, diabetes, GERD, heart failure, other ( Intubated x 9. heart murmur. osteoporosis. hearing loss in [place]) Past Surgical History: Other (cataracts, nasal surg, tubal ligation. bilateral foot. Left shoulder surgery, R. knee sx / EYE SURGERY) Social history: no significant social history Family history: no significant family history Medications and Allergies Allergies Allergy/AdvReac Type Severity Reaction Status Date / Time amoxicillin Allergy Anaphylaxis Verified 01/07/21 18:36 Penicillins Allergy Rash Verified 01/07/21 18:36 seafood Allergy Severe Anaphylaxis Uncoded 03/16/17 01:08 peanuts Allergy Anaphylaxis Uncoded 09/20/19 12:06 Home Medications Medication Instructions Recorded Confirmed Last Taken Type Furosemide [Lasix TAB] 20 mg PO DAILY@0600 #30 tablet 01/06/20 08/18/20 Unknown Rx Gabapentin 300 mg PO Q8HR #90 capsule 01/06/20 08/18/20 Unknown Rx Montelukast [Singulair] 10 mg PO QHS #30 tablet 01/06/20 08/18/20 Unknown Rx metFORMIN [Glucophage] 500 mg PO QDAY 02/05/20 08/18/20 Unknown History Pantoprazole [Protonix TAB] 40 mg PO QDAY #30 tablet 03/07/20 08/18/20 Unknown Rx Albuterol Mdi (or & Nicu Only) 2 puff IH QID PRN #1 inhalation 03/08/20 08/18/20 Unknown Rx [ProAir HFA Inhaler] Fluticasone [Flonase] 1 spray NS QDAY #1 bottle 05/07/20 08/18/20 Unknown Rx Ipratropium/Albuterol Sulfate 1 ampul IH Q6HR #1 box 05/07/20 08/18/20 Unknown Rx [DUONEB *Not for PRN Use*] Albuterol Sulfate [Proventil Hfa] 2 puff IH Q4HR PRN #1 hfa.aer.ad 05/18/20 08/18/20 Unknown Rx Apixaban [Eliquis] 5 mg PO Q12HR #60 tablet 08/19/20 Unknown Rx Arformoterol Nebu [Brovana Nebu] 15 mcg IH Q12HRT 30 Days ml 08/19/20 Unknown Rx Ascorbic Acid [Vitamin C] 500 mg PO BID #30 tablet 08/19/20 Unknown Rx Budesonide [Pulmicort Respules] 0.5 mg IH Q12HRT 30 Days nebu 08/19/20 Unknown Rx Metoprolol [Lopressor TAB] 25 mg PO Q8HR #90 tablet 08/19/20 Unknown Rx Prednisone [predniSONE 5 mg (6-Day 5 mg PO .TAPER #1 tab.ds.pk 08/19/20 Unknown Rx Pack, 21 Tabs)] Zinc Sulfate 220 mg PO QDAY #30 capsule 08/19/20 Unknown Rx guaiFENesin [Robitussin] 200 mg PO Q6H PRN #1 bottle 08/19/20 Unknown Rx Albuterol Sulfate [Proventil Hfa] 2 puff IH Q4HR PRN #1 hfa.aer.ad 09/20/20 Unknown Rx Benzonatate [Tessalon Perles] 100 mg PO Q8HR PRN #20 capsule 09/20/20 Unknown Rx Albuterol Mdi (or & Nicu Only) 2 puff IH QID PRN #8.5 gram 10/28/20 Unknown Rx [ProAir HFA Inhaler] Benzonatate [Tessalon Perles] 100 mg PO Q8HR PRN #20 capsule 10/28/20 Unknown Rx predniSONE [Deltasone] 50 mg PO QDAY #5 tab 10/28/20 Unknown Rx Albuterol Sulfate [Proair 90 mcg IH Q4H PRN #1 aer.pw.bas 12/17/20 Unknown Rx Digihaler] predniSONE [Deltasone] 20 mg PO QDAY #5 tab 12/17/20 Unknown Rx predniSONE [Deltasone] 50 mg PO QDAY #5 tab 01/07/21 Unknown Rx Active Meds: Active Medications Acetaminophen (Acetaminophen 325 Mg Tab) 650 mg PO Q6H PRN PRN Reason: Pain MILD(1-3)/Fever >100.5/ANTONIO Albuterol/Ipratropium (Ipratropium/Albuterol Sulfate 3 Ml Ampul.Neb) 1 ampul IH Q6HRT [facility] Last Admin: 01/15/21 09:06 Dose: 1 ampul Documented by: Dextrose (Dextrose 50% In Water (25gm) 50 Ml Syringe) 50 ml IV Q30MIN PRN; Protocol PRN Reason: Hypoglycemia Enoxaparin Sodium (Enoxaparin 40 Mg/0.4 Ml Inj) 40 mg SUB-Q QDAY@2200 REANNA; Protocol Fentanyl (Fentanyl 100 Mcg/2 Ml Inj) 50 mcg IV Q10MIN PRN PRN Reason: ANALGESIA Propofol (Diprivan 10 Mg/Ml) 1,000 mg in 100 mls @ 2.585 mls/hr IV TITR REANNA; Protocol Last Titration: 01/15/21 07:55 Dose: 50 mcg/kg/min, 25.855 mls/hr Documented by: Levofloxacin/Dextrose (Levaquin 750mg/150ml) 750 mg in 150 mls @ 100 mls/hr IV Q24H REANNA; Protocol Last Admin: 01/15/21 00:29 Dose: 100 mls/hr Documented by: Fentanyl Citrate (Fentanyl Drip Premix) 2,000 mcg in 100 mls @ 3.901 mls/hr IV TITR REANNA; Protocol Last Titration: 01/15/21 07:55 Dose: 2 mcg/kg/hr, 7.802 mls/hr Documented by: Insulin Human Lispro (Insulin Lispro 100 Unit/Ml) 0 unit SUB-Q Q6HR REANNA; Protocol Last Admin: 01/15/21 11:35 Dose: Not Given Documented by: Magnesium Hydroxide (Magnesium Hydroxide (Mom) Oral Liqd Udc) 30 ml PO Q4H PRN PRN Reason: Constipation Methylprednisolone Sodium Succinate (Methylprednisolone Sod Succinate 40 Mg/1 Ml Inj) 40 mg IV Q8HR [facility] Last Admin: 01/15/21 06:17 Dose: 40 mg Documented by: Morphine Sulfate (Morphine 2 Mg/1 Ml Inj) 2 mg IV Q4H PRN PRN Reason: Pain, Moderate (4-6) Morphine Sulfate (Morphine 4 Mg/1 Ml Inj) 4 mg IV Q4H PRN PRN Reason: Pain , Severe (7-10) Ondansetron HCl (Ondansetron 4 Mg/2 Ml Inj) 4 mg IV Q8H PRN PRN Reason: Nausea And Vomiting Sodium Chloride (Sodium Chloride 0.9% 10 Ml Flush Syringe) 10 ml IV BID REANNA Last Admin: 01/15/21 10:17 Dose: 10 ml Documented by: Sodium Chloride (Sodium Chloride 0.9% 10 Ml Flush Syringe) 10 ml IV PRN PRN PRN Reason: LINE FLUSH Physical Examination Vital signs: Vital Signs Pulse Resp Pulse Ox 122 H 32 H 77 L 01/14/21 19:32 01/14/21 19:32 01/14/21 19:32 Results - Laboratory Findings CBC and BMP: 01/15/21 04:26 01/15/21 04:26 ABG ABG pH 7.421 pH Units (7.350-7.450) 01/15/21 01:39 ABG pCO2 38.6 mm Hg 01/15/21 01:39 ABG pO2 211.1 mm Hg (80.0-90.0) H 01/15/21 01:39 ABG O2 Saturation 99.3 % (95.0-99.0) H 01/15/21 01:39 PT/INR, D-dimer PT 19.6 Sec. (12.2-14.9) H 01/15/21 04:26 INR 1.61 (0.87-1.13) H 01/15/21 04:26 Abnormal lab findings: Abnormal Labs 01/14/21 01/14/21 01/14/21 19:54 19:54 19:54 WBC 15.8 H Lymph % (Auto) Lymph # (Auto) Seg Neutrophils % Seg Neuts % (Manual) 38.0 L Lymphocytes % (Manual) 54.0 H Lymphocytes # (Manual) 8.5 H PT 19.5 H INR 1.60 H ABG pO2 ABG O2 Saturation ABG Hemoglobin Sodium 136 L Chloride Carbon Dioxide 19 L Glucose 300 H POC Glucose Lactic Acid Calcium 8.1 L AST 289 H ALT 190 H Alkaline Phosphatase 161 H Albumin 3.8 L Ur Specific [place] Salicylates Acetaminophen 01/14/21 01/14/21 01/14/21 19:54 19:54 19:54 WBC Lymph % (Auto) Lymph # (Auto) Seg Neutrophils % Seg Neuts % (Manual) Lymphocytes % (Manual) Lymphocytes # (Manual) PT INR ABG pO2 ABG O2 Saturation ABG Hemoglobin Sodium Chloride Carbon Dioxide Glucose POC Glucose Lactic Acid 5.10 H* Calcium AST ALT Alkaline Phosphatase Albumin Ur Specific [place] Salicylates < 0.3 L Acetaminophen 5.9 L 01/14/21 01/14/21 01/15/21 21:20 23:42 01:39 WBC Lymph % (Auto) Lymph # (Auto) Seg Neutrophils % Seg Neuts % (Manual) Lymphocytes % (Manual) Lymphocytes # (Manual) PT INR ABG pO2 211.1 H ABG O2 Saturation 99.3 H ABG Hemoglobin 10.9 L Sodium Chloride Carbon Dioxide Glucose POC Glucose Lactic Acid 3.20 H* Calcium AST ALT Alkaline Phosphatase Albumin Ur Specific [place] 1.035 H Salicylates Acetaminophen 01/15/21 01/15/21 01/15/21 04:26 04:26 04:26 WBC Lymph % (Auto) 7.8 L Lymph # (Auto) 0.6 L Seg Neutrophils % 88.1 H Seg Neuts % (Manual) Lymphocytes % (Manual) Lymphocytes # (Manual) PT 19.6 H INR 1.61 H ABG pO2 ABG O2 Saturation ABG Hemoglobin Sodium Chloride 111.1 H Carbon Dioxide Glucose 168 H POC Glucose Lactic Acid Calcium 7.8 L AST ALT Alkaline Phosphatase Albumin Ur Specific [place] Salicylates Acetaminophen 01/15/21 01/15/21 04:26 07:41 WBC Lymph % (Auto) Lymph # (Auto) Seg Neutrophils % Seg Neuts % (Manual) Lymphocytes % (Manual) Lymphocytes # (Manual) PT INR ABG pO2 ABG O2 Saturation ABG Hemoglobin Sodium Chloride Carbon Dioxide Glucose POC Glucose 157 H Lactic Acid 2.20 H* Calcium AST ALT Alkaline Phosphatase Albumin Ur Specific [place] Salicylates Acetaminophen
[2021-01-15] MEDS ORDERED: LIP THERAPY VASELINE TP PRN (14:07)
[2021-01-15] MEDS ORDERED: MINERAL OIL/PETROLATUM, WHITE OPHTH OINT 3.5 GM OU PRN (14:07)
[2021-01-15] MEDS ORDERED: SIMPLE SYRUP 15 ML FEEDTUBE PRN ×2 (14:23)
[2021-01-15] MEDS ORDERED: LIPASE 10,500/PROTEASE 25,000/AMYLASE 43,750 (UNITS) DR CAP FEEDTUBE PRN (14:23)
[2021-01-15] MEDS ORDERED: SODIUM BICARBONATE 325 MG TAB FEEDTUBE PRN (14:23)
[2021-01-15] MEDS: FAMOTIDINE 20 MG/2 ML INJ IV SCH ×2 (14:48→22:00)
[2021-01-15] MEDS ORDERED: DEXTROSE 50% IN WATER (25GM) 50 ML SYRINGE IV PRN (15:27)
[2021-01-15] MEDS ORDERED: SODIUM CHLORIDE 0.9% 1000 ML 1,000 ML ONE (20:24)
[2021-01-15] MEDS: fentaNYL DRIP Premix 2,000 MCG/100 ML BAG IV SCH (21:00)
[2021-01-15] MEDS: APIXABAN 5 MG TAB PO SCH (22:00)
[2021-01-15] MEDS ORDERED: ENOXAPARIN 40 MG/0.4 ML INJ SUB-Q SCH (22:00)
[2021-01-15] MEDS: SENNOSIDES/DOCUSATE SODIUM 8.6/50 MG TAB FEEDTUBE SCH (22:00)
[2021-01-16] MEDS: INSULIN LISPRO 100 UNIT/ML SUB-Q SCH ×4 (00:30→12:00)
[2021-01-16 02:01] LABS: Hematocrit 30.9 % (30.3-42.9); Hemoglobin 10.4 gm/dl (10.1-14.3); Mean Corpuscular HGB Conc 34 % (30-34); Mean Corpuscular Volume 88 fl (79-97); Platelet Count 204 K/mm3 (140-440); Red Blood Count 3.53 M/mm3 (3.65-5.03); Red Cell Distribution Width 14.3 % (13.2-15.2)
[2021-01-16 02:12] LABS: INR 1.57 (0.87-1.13)
[2021-01-16 02:13] LABS: Partial Thromboplastin Time 29.2 Sec. (24.2-36.6)
--- NOTE | 2021-01-16 02:30 | Consultation ---
DATE OF CONSULTATION: 01/15/2021 PULMONARY CRITICAL CARE CONSULTATION CONSULTING PHYSICIAN: Dr. Landon Zabala. REASON FOR CONSULTATION: Acute asthma exacerbation requiring mechanical ventilatory support. CHIEF COMPLAINT AND HISTORY OF PRESENT ILLNESS: The patient is a 55-year-old female with past medical history significant amongst other things both for a diagnosis of asthma, but also congestive heart failure, was brought into the Emergency Room by EMS for difficulty breathing. EMS says they arrived at the patient's house to find her unresponsive with agonal breathing, pinpoint pupils, and O2 sats in the 50. She was given Narcan. She woke up and began talking. In the ER, she was anxious, agitated, and complaining of trouble breathing and she remained hypoxemic, developed respiratory extremis essentially, and she was intubated. Of note, the patient reportedly has received her COVID-19 vaccination, but that is based on chart review. We are asked to assist with management. When I stopped by to see her, she was on mechanical ventilator, assist control, tidal volumes I believe 450, 20 rate, PEEP of 6 and she was not breathing over the set rate. She did not have any history of vomiting or overt aspiration or tobacco use/abuse history is unknown. The above is as much of the history of presentation as I have. PAST MEDICAL HISTORY: Congestive heart failure, diabetes, gastroesophageal reflux disease, history of asthma with multiple intubations in the past. PAST SURGICAL HISTORY: She has had nasal surgery, cataract surgery, left shoulder surgery and right knee surgery in 01/2009. MEDICATIONS: She was on at the time I stopped by to see her, according to the medication administration record included the following: Tylenol 650 mg p.o. q.6 hours p.r.n. mild pain or fevers, all p.o. meds via the feeding tube, DuoNeb nebulizer treatments nebulized q.6 hours, Lovenox 40 mg subQ daily. Fentanyl drip had been ordered. She was on a propofol drip at 50 mcg per kilogram per minute. Levaquin 750 mg IV daily, Solu-Medrol 40 mg IV q.8 hours, Zofran 4 mg IV q. 8 hours p.r.n. nausea and vomiting, morphine sulfate 2 mg IV q.4 hours p.r.n. moderate pain and 4 mg IV q.4 hours p.r.n. severe pain, propofol 50 mcg per kilogram per minute. ALLERGIES: AMOXICILLIN TO PENICILLINS, nature of this allergy is unknown as well as to SEA FOODS. DIET: Well built lady, acute weight loss or gain history is unknown. FAMILY AND SOCIAL HISTORY: Lives in the community. Alcohol, tobacco or illicit drug use or abuse history is unknown. FAMILY HISTORY: Otherwise unknown. REVIEW OF SYSTEMS: Unobtainable secondary to the patient's medical and mental condition. Since she has been here, no gross hematochezia or melena, no gross hematuria, no hematemesis, no bloody tracheal secretions, no witnessed seizures. Review of systems is otherwise unobtainable or as in the body of the history above. PHYSICAL EXAMINATION: VITAL SIGNS: At presentation, she was afebrile. Initial temperature recorded is 98.2 degrees Fahrenheit, pulse of 122, respiratory rate was 32, blood pressure was 168/102, O2 sats 100%, inspired oxygen concentration at that time was not recorded. At the time of my exam, O2 sats were 98% and that was on 30% FiO2. GENERAL: She is a middle-aged female. Normocephalic, atraumatic, on the mechanical ventilator without significant the patient ventilator dyssynchrony. HEAD, EYES, EARS, NOSE AND THROAT: Anicteric. No conjunctival erythema. Oropharynx was moist. ET tube was taped at the lips around 23-24 cm. No gross jugular venous distention, no thyromegaly. Grossly, there were no palpable lymph nodes in the supraclavicular or submandibular lymph node chains. LUNGS: Auscultation of both lung greene were actually clear with good bilateral air movement. No wheezing. HEART: Sounds 1 and 2 are heard. They were regular rate and rhythm at the time of my evaluation without overt rubs or murmurs. ABDOMEN: Soft, full, bowel sounds are positive, nontender, no palpable hepatosplenomegaly. EXTREMITIES: Without overt digital clubbing or cyanosis, no pedal edema. Pedal pulses are 2+ bilaterally. NEUROLOGIC: Pupils are equal, round, about 2 mm, sluggishly reactive to light. Extraocular muscle movements could not be assessed. She was sedated to a RASS of about -3 to -4 at the time of my evaluation. She did have some flickering movements to noxious stimuli. SKIN: Normal turgor in the areas examined without overt cellulitis or rash. Please see the wound care nurses' notes for full description of her skin. PSYCHIATRIC: Mood and affect could not be assessed. LABORATORY DATA: From my review are as follows: Admission white cell count 15,800, hemoglobin 11.8, hematocrit 35.1, platelet count 281, 5% band neutrophils. INR was 1.60. Arterial blood gas showed a pH of 7.42, pCO2 of 39, pO2 of 211 on 50% FiO2 on the above-mentioned vent settings. Serum sodium 136, potassium 4.3, chloride 103, bicarbonate 19, BUN 12, creatinine 1.1, glucose was 300. Lactic acid level was 5.1 at presentation, now within normal limits. AST was up at 289, ALT was up at 190, otherwise liver function tests essentially within normal limits. Urinalysis was negative for nitrites and leukocyte esterase, 5 white cells per high power field. Urine drug screen was presumptive negative. Alcohol and aspirin levels within normal limits. Tylenol level was low, but at 5.9. Two sets of blood cultures, no growth to date. Chest x-ray was done. I have reviewed the images as well as the radiologist's interpretation and compared it to an x-ray from about a week ago. There appears to be new infiltrates, particularly involving the right upper lobe regions, borderline cardiomegaly. ET tube is in good position. No gross pneumothorax, no gross bony fracture. ASSESSMENT: 1. Acute hypoxemic respiratory failure. 2. Acute asthma exacerbation. 3. Community acquired pneumonia. 4. History of diabetes. 5. History of congestive heart failure. 6. Gastroesophageal reflux disease by history. 7. History of arthritis. 8. Metabolic acidosis at presentation. 9. Leukocytosis at presentation. 10. Elevated serum transaminases. PLAN: I have asked the nurse to reduce sedation and do a sedation assessment trial. I have reduced the set rate to 12. We will repeat an arterial blood gas in about a couple of hours if she does not begin to breathe over the set rate. Otherwise, ventilator-associated pneumonia bundle has been introduced. Oxygen will be weaned to keep sats greater than or equal to 90%. Aspiration precautions will be maintained. Bronchodilators routine pulmonary hygiene will be per the respiratory therapy. I will add long-acting bronchodilators and inhaled corticosteroids. At this point, continue the short-acting in the short time, but I will change it to t.i.d. She is appropriately on DVT prophylaxis. I will be putting her on GI prophylaxis. Empiric community-acquired pneumonia therapy is appropriate. We will complete 5 days of therapy. I will get a procalcitonin level, CRP level to help guide clinical decision making. Chronic disease medications and management will be deferred to the attending. Flu and pneumonia vaccination will be addressed per protocol. Thank you very much for the consult. We will follow along and make further recommendations as picture progresses/becomes clearer. She is critically ill on life-sustaining interventions including mechanical ventilatory support and very high risk of from cardiopulmonary system decompensation. At this time, we spent about 35-40 minutes of critical care time without overlap and excluding any procedural time that may be necessary. TID: [id number] RECEIPT: [id number] EMIL/GURJIT
[2021-01-16 03:19] LABS: Alanine Aminotransferase 129 units/L (7-56); Albumin 3.5 g/dL (3.9-5)
[2021-01-16 03:23] LABS: Bilirubin,Direct < 0.2 mg/dL (0-0.2)
[2021-01-16] MEDS: methylPREDNISolone Sod Succinate 40 MG/1 ML INJ IV SCH ×2 (06:00→13:07)
[2021-01-16] MEDS ORDERED: ALBUTEROL 2.5 MG/3 ML NEBU IH ONE (08:08)
[2021-01-16] MEDS: IPRATROPIUM/ALBUTEROL SULFATE 3 ML AMPUL.NEB IH SCH ×3 (08:14→20:21)
--- NOTE | 2021-01-16 08:47 | Progress Note ---
Assessment and Plan Assessment and plan: #Acute hypoxic respiratory failure -On mechanical ventilation vent settings: A/C - rate 12, TV 400, PEEP 6, FIO2 30% -patient extubated today -d/c propofol and fentanyl -TG level 58 -Critical care following, recs appreciated #Acute asthma exacerbation -patient with extensive history and visits for asthma exacerbation -has been intubated multiple times -continue steroids for now #Pneumonia -procalcitonin 0.5 -preliminary sputum culture negative for growth -MRSA culture ordered -currently on levaquin, will continue #Lactic acidosis -resolved #Elevated liver enzymes -AST/ALT down trending #Hx Congestive heart failure -BNP 192 -CXR with vascular congestion -TTE 09/2019: EF 40-45% -TTE pending #Hypertension -soft blood pressures while inpatient -will hold home blood pressure medications for now #History of diabetes -SSI for now #History of atrial fibrillation -seen per chart review of previous hospitalizations -was taking eliquis, will restart #CODE STATUS -Full code Disposition Plan: Continue medical management Total Time Spent with Patient (Minutes): 60 minutes critical care time History Interval history: No acute events overnight. Sedation increased due to patient biting tube. Currently intubated. Hospitalist Physical - Physical exam Narrative exam: GENERAL: Well-developed well-nourished. Intubated and sedated. HEENT: ETT and LUCY in place CHEST/LUNGS: CTAB on room air HEART/CARDIOVASCULAR: RRR. No murmur, rubs or gallops appreciated. ABDOMEN: +BS. NT/ND. NEURO: Unable to assess EXTREMITIES: No cyanosis, cLubbing or edema. PSYCH: Unable to assess - Constitutional Vitals: Temp Pulse Resp BP Pulse Ox 98.2 F 85 12 102/57 98 01/15/21 01:02 01/16/21 08:18 01/16/21 08:16 01/16/21 08:15 01/16/21 08:18 General appearance: Present: no acute distress, well-nourished, other (Intubated and Sedated) HEART Score - HEART Score Troponin: Troponin T < 0.010 ng/mL (0.00-0.029) 01/14/21 19:54 Results - Labs CBC & Chem 7: 01/16/21 00:50 01/16/21 00:50 Labs: Laboratory Last Values WBC 13.6 K/mm3 (4.5-11.0) H 01/16/21 00:50 RBC 3.53 M/mm3 (3.65-5.03) L 01/16/21 00:50 Hgb 10.4 gm/dl (10.1-14.3) 01/16/21 00:50 Hct 30.9 % (30.3-42.9) 01/16/21 00:50 MCV 88 fl (79-97) 01/16/21 00:50 MCH 29 pg (28-32) 01/16/21 00:50 MCHC 34 % (30-34) 01/16/21 00:50 RDW 14.3 % (13.2-15.2) 01/16/21 00:50 Plt Count 204 K/mm3 (140-440) 01/16/21 00:50 Lymph % (Auto) 7.8 % (13.4-35.0) L 01/15/21 04:26 [place] % (Auto) 4.0 % (0.0-7.3) 01/15/21 04:26 Eos % (Auto) 0.0 % (0.0-4.3) 01/15/21 04:26 Baso % (Auto) 0.1 % (0.0-1.8) 01/15/21 04:26 Lymph # (Auto) 0.6 K/mm3 (1.2-5.4) L 01/15/21 04:26 [place] # (Auto) 0.3 K/mm3 (0.0-0.8) 01/15/21 04:26 Eos # (Auto) 0.0 K/mm3 (0.0-0.4) 01/15/21 04:26 Baso # (Auto) 0.0 K/mm3 (0.0-0.1) 01/15/21 04:26 Add Manual Diff Complete 01/14/21 19:54 Total Counted 100 01/14/21 19:54 Seg Neutrophils % 88.1 % (40.0-70.0) H 01/15/21 04:26 Seg Neuts % (Manual) 38.0 % (40.0-70.0) L 01/14/21 19:54 Band Neutrophils % 5.0 % 01/14/21 19:54 Lymphocytes % (Manual) 54.0 % (13.4-35.0) H 01/14/21 19:54 Monocytes % (Manual) 1.0 % (0.0-7.3) 01/14/21 19:54 Eosinophils % (Manual) 1.0 % (0.0-4.3) 01/14/21 19:54 Metamyelocytes % 1.0 % 01/14/21 19:54 Nucleated RBC % Not Reportable 01/14/21 19:54 Seg Neutrophils # 6.7 K/mm3 (1.8-7.7) 01/15/21 04:26 Seg Neutrophils # Man 6.0 K/mm3 (1.8-7.7) 01/14/21 19:54 Band Neutrophils # 0.8 K/mm3 01/14/21 19:54 Lymphocytes # (Manual) 8.5 K/mm3 (1.2-5.4) H 01/14/21 19:54 Abs React Lymphs (Man) 0.0 K/mm3 01/14/21 19:54 Monocytes # (Manual) 0.2 K/mm3 (0.0-0.8) 01/14/21 19:54 Eosinophils # (Manual) 0.2 K/mm3 (0.0-0.4) 01/14/21 19:54 Basophils # (Manual) 0.0 K/mm3 (0.0-0.1) 01/14/21 19:54 Metamyelocytes # 0.2 K/mm3 01/14/21 19:54 Myelocytes # 0.0 K/mm3 01/14/21 19:54 Promyelocytes # 0.0 K/mm3 01/14/21 19:54 Blast Cells # 0.0 K/mm3 01/14/21 19:54 WBC Morphology Not Reportable 01/14/21 19:54 Hypersegmented Neuts Not Reportable 01/14/21 19:54 Hyposegmented Neuts Not Reportable 01/14/21 19:54 Hypogranular Neuts Not Reportable 01/14/21 19:54 Smudge Cells Not Reportable 01/14/21 19:54 Toxic Granulation Not Reportable 01/14/21 19:54 Toxic Vacuolation Not Reportable 01/14/21 19:54 Dohle Bodies Not Reportable 01/14/21 19:54 Pelger-Huet Anomaly Not Reportable 01/14/21 19:54 Giuseppe Rods Not Reportable 01/14/21 19:54 Platelet Estimate Consistent w auto 01/14/21 19:54 Clumped Platelets Not Reportable 01/14/21 19:54 Plt Clumps, EDTA Not Reportable 01/14/21 19:54 Large Platelets Not Reportable 01/14/21 19:54 Giant Platelets Not Reportable 01/14/21 19:54 Platelet Satelliting Not Reportable 01/14/21 19:54 Plt Morphology Comment Not Reportable 01/14/21 19:54 RBC Morphology Not Reportable 01/14/21 19:54 Dimorphic RBCs Not Reportable 01/14/21 19:54 Polychromasia Not Reportable 01/14/21 19:54 Hypochromasia Not Reportable 01/14/21 19:54 Poikilocytosis 2+ 01/14/21 19:54 Anisocytosis 1+ 01/14/21 19:54 Microcytosis Not Reportable 01/14/21 19:54 Macrocytosis Not Reportable 01/14/21 19:54 Spherocytes Not Reportable 01/14/21 19:54 Pappenheimer Bodies Not Reportable 01/14/21 19:54 Sickle Cells Not Reportable 01/14/21 19:54 Target Cells Not Reportable 01/14/21 19:54 Tear Drop Cells Not Reportable 01/14/21 19:54 Ovalocytes Few 01/14/21 19:54 Helmet Cells Not Reportable 01/14/21 19:54 Phillips-[place] Bodies Not Reportable 01/14/21 19:54 [place] Rings Not Reportable 01/14/21 19:54 Arvin Cells 1+ 01/14/21 19:54 Bite Cells Not Reportable 01/14/21 19:54 Crenated Cell Not Reportable 01/14/21 19:54 Elliptocytes Few 01/14/21 19:54 Acanthocytes (Spur) Not Reportable 01/14/21 19:54 Rouleaux Not Reportable 01/14/21 19:54 Hemoglobin C Crystals Not Reportable 01/14/21 19:54 Schistocytes Not Reportable 01/14/21 19:54 Malaria parasites Not Reportable 01/14/21 19:54 Alfonso Bodies Not Reportable 01/14/21 19:54 Hem Pathologist Commnt No 01/14/21 19:54 PT 19.2 Sec. (12.2-14.9) H 01/16/21 00:50 INR 1.57 (0.87-1.13) H 01/16/21 00:50 APTT 29.2 Sec. (24.2-36.6) 01/16/21 00:50 ABG pH 7.312 (7.320-7.450) L 01/16/21 06:06 POC ABG pCO2 46.2 mmHg (32.0-48.0) 01/16/21 06:06 ABG pCO2 38.6 mm Hg 01/15/21 01:39 POC ABG pO2 105.3 mmHg (83-108) 01/16/21 06:06 ABG pO2 211.1 mm Hg (80.0-90.0) H 01/15/21 01:39 POC ABG HCO3 22.8 01/16/21 06:06 ABG HCO3 24.5 mmol/L (20.0-26.0) 01/15/21 01:39 ABG O2 Saturation 98.0 (0-100) 01/16/21 06:06 ABG O2 Content 15.5 (0.0-44) 01/15/21 01:39 POC ABG Base Excess -3.4 01/16/21 06:06 ABG Base Excess 0.2 mmol/L (-2.0-3.0) 01/15/21 01:39 ABG Hemoglobin 12.0 (12.0-17.5) 01/16/21 06:06 ABG Oxyhemoglobin 97.6 (94-98) 01/16/21 06:06 ABG Carboxyhemoglobin 1.1 % (0.0-5.0) 01/15/21 01:39 ABG Methemoglobin 0.3 (0.0-1.5) 01/16/21 06:06 ABG Sodium 141.8 mmol/L (136.0-145.0) 01/16/21 06:06 ABG Potassium 4.6 mmol/L (3.40-4.50) H 01/16/21 06:06 ABG Chloride 110.0 mmol/L (98-107) H 01/16/21 06:06 ABG Glucose 126 mg/dL (65-95) H 01/16/21 06:06 Oxyhemoglobin 97.7 % (95.0-99.0) 01/15/21 01:39 Carboxyhemoglobin 0.1 (0.5-1.5) L 01/16/21 06:06 FiO2 50 % 01/15/21 01:39 FiO2 % 30.0 01/16/21 06:06 Sodium 142 mmol/L (137-145) 01/15/21 04:26 Potassium 4.4 mmol/L (3.6-5.0) 01/15/21 04:26 Chloride 111.1 mmol/L (98-107) H 01/15/21 04:26 Carbon Dioxide 24 mmol/L (22-30) 01/15/21 04:26 Anion Gap 11 mmol/L 01/15/21 04:26 BUN 11 mg/dL (7-17) 01/15/21 04:26 Creatinine 1.3 mg/dL (0.6-1.2) H D 01/16/21 00:50 Estimated GFR 51 ml/min 01/16/21 00:50 BUN/Creatinine Ratio 14 % 01/15/21 04:26 Glucose 168 mg/dL (65-100) H 01/15/21 04:26 POC Glucose 123 mg/dL (70-105) H 01/16/21 06:39 Lactic Acid 2.00 mmol/L (0.7-2.0) 01/15/21 08:44 Calcium 7.8 mg/dL (8.4-10.2) L 01/15/21 04:26 Total Bilirubin < 0.20 mg/dL (0.1-1.2) 01/16/21 03:06 Direct Bilirubin < 0.2 mg/dL (0-0.2) 01/16/21 03:06 Indirect Bilirubin 0.0 mg/dL 01/16/21 03:06 AST 46 units/L (5-40) H 01/16/21 03:06 ALT 129 units/L (7-56) H 01/16/21 03:06 Alkaline Phosphatase 118 units/L (35-129) 01/16/21 03:06 Troponin T < 0.010 ng/mL (0.00-0.029) 01/14/21 19:54 C-Reactive Protein 0.50 mg/dL (0.00-1.30) 01/16/21 00:50 NT-Pro-B Natriuret Pep 192.9 pg/mL (0-900) 01/14/21 19:54 Total Protein 5.9 g/dL (6.3-8.2) L 01/16/21 03:06 Albumin 3.5 g/dL (3.9-5) L 01/16/21 03:06 Albumin/Globulin Ratio 1.5 % 01/16/21 03:06 Triglycerides 58 mg/dL (2-149) 01/16/21 02:13 Arterial Blood Glucose 126 mg/dL (65-95) H 01/16/21 06:06 Urine Color Straw (Yellow) 01/14/21 21:20 Urine Turbidity Hazy (Clear) 01/14/21 21:20 Urine pH 5.0 (5.0-7.0) 01/14/21 21:20 Ur Specific [place] 1.035 (1.003-1.030) H 01/14/21 21:20 Urine Protein >500 mg/dL (Negative) 01/14/21 21:20 Urine Glucose (UA) 500 mg/dL (Negative) 01/14/21 21:20 Urine Ketones Negative mg/dL (Negative) 01/14/21 21:20 Urine Blood Negative (Negative) 01/14/21 21:20 Urine Nitrite Negative (Negative) 01/14/21 21:20 Ur Reducing Substances Not Reportable 01/14/21 21:20 Urine Bilirubin Negative (Negative) 01/14/21 21:20 Urine Ictotest Not Reportable 01/14/21 21:20 Urine Urobilinogen < 2.0 mg/dL (<2.0) 01/14/21 21:20 Ur Leukocyte Esterase Negative (Negative) 01/14/21 21:20 Urine WBC (Auto) 5.0 /HPF (0.0-6.0) 01/14/21 21:20 Urine RBC (Auto) 3.0 /HPF (0.0-6.0) 01/14/21 21:20 U Epithel Cells (Auto) 5.0 /HPF (0-13.0) 01/14/21 21:20 Hyaline Casts 28 /LPF 01/14/21 21:20 Urine Mucus Few /HPF 01/14/21 21:20 Salicylates < 0.3 mg/dL (2.8-20.0) L 01/14/21 19:54 Urine Opiates Screen Negative 01/14/21 21:20 Urine Methadone Screen Negative 01/14/21 21:20 Acetaminophen 5.9 ug/mL (10.0-30.0) L 01/14/21 19:54 Ur Barbiturates Screen Negative 01/14/21 21:20 Ur Phencyclidine Scrn Negative 01/14/21 21:20 Ur Amphetamines Screen Negative 01/14/21 21:20 U Benzodiazepines Scrn Negative 01/14/21 21:20 Urine Cocaine Screen Negative 01/14/21 21:20 U Marijuana (THC) Screen Negative 01/14/21 21:20 Drugs of Abuse Note Disclamer 01/14/21 21:20 Plasma/Serum Alcohol < 0.01 % (0-0.07) 01/14/21 19:54 Microbiology: Microbiology 01/14/21 19:54 Peripheral/Venous Blood Culture - Preliminary NO GROWTH AFTER 24 HOURS 01/14/21 20:03 Peripheral/Venous Blood Culture - Preliminary NO GROWTH AFTER 24 HOURS 01/15/21 Unknown Sputum - Endotracheal Wash Sputum Culture - Preliminary [place]/IV: Voiding Method Indwelling Catheter Active Medications - Current Medications Current Medications: Generic Name Dose Route Start Last Admin Trade Name Freq PRN Reason Stop Dose Admin Acetaminophen 650 mg 01/14/21 22:21 Acetaminophen 325 Mg Tab PO Q6H PRN Pain MILD(1-3)/Fever >100.5/ANTONIO Albuterol/Ipratropium 1 ampul 01/15/21 20:00 01/16/21 08:14 Ipratropium/Albuterol Sulfate 3 Ml Ampul.Neb IH 1 ampul TIDRT REANNA Administration Lipase/Protease/Amylase 1 each 01/15/21 14:23 Lipase 10,500/Protease 25,000/Amylase 43,750 (Units) Dr Arnold FEEDTUBE PRN PRN For Clogged Feeding Tube Apixaban 5 mg 01/15/21 22:00 01/15/21 22:00 Apixaban 5 Mg Tab PO 5 mg Q12HR REANNA Administration Protocol Dextrose 50 ml 01/15/21 15:27 Dextrose 50% In Water (25gm) 50 Ml Syringe IV Q30MIN PRN Hypoglycemia Protocol Famotidine 20 mg 01/15/21 15:00 01/15/21 22:00 Famotidine 20 Mg/2 Ml Inj IV 20 mg BID REANNA Administration Fentanyl 50 mcg 01/15/21 09:09 Fentanyl 100 Mcg/2 Ml Inj IV Q10MIN PRN ANALGESIA Hydrophilic Ointment 1 applic 01/15/21 14:07 Lip Therapy Vaseline TP Q2HR PRN Dry Lips Propofol 1,000 mg in 100 mls @ 2.585 mls/hr 01/14/21 20:00 01/16/21 08:19 Diprivan 10 Mg/Ml IV 35 mcg/kg/min TITR REANNA 18.098 mls/hr Administration Protocol 5 MCG/KG/MIN Levofloxacin/Dextrose 750 mg in 150 mls @ 100 mls/hr 01/14/21 23:00 01/15/21 23:00 Levaquin 750mg/150ml IV 100 mls/hr Q24H REANNA Administration Protocol Fentanyl Citrate 2,000 mcg in 100 mls @ 3.901 mls/hr 01/14/21 23:00 01/15/21 21:00 Fentanyl Drip Premix IV 2 mcg/kg/hr TITR REANNA 7.802 mls/hr Administration Protocol 1 MCG/KG/HR Insulin Human Lispro 0 unit 01/16/21 12:00 Insulin Lispro 100 Unit/Ml SUB-Q Q6HR [facility] Protocol Magnesium Hydroxide 30 ml 01/14/21 22:21 Magnesium Hydroxide (Mom) Oral Liqd Udc PO Q4H PRN Constipation Methylprednisolone Sodium Succinate 40 mg 01/15/21 06:00 01/16/21 06:00 Methylprednisolone Sod Succinate 40 Mg/1 Ml Inj IV 40 mg Q8HR REANNA Administration Morphine Sulfate 2 mg 01/14/21 22:21 Morphine 2 Mg/1 Ml Inj IV Q4H PRN Pain, Moderate (4-6) Morphine Sulfate 4 mg 01/14/21 22:21 01/16/21 04:45 Morphine 4 Mg/1 Ml Inj IV 4 mg Q4H PRN Administration Pain , Severe (7-10) Multi-Ingred Cream/Lotion/Oil/Oint 1 applic 01/15/21 14:07 Mineral Oil/Petrolatum, White Ophth Oint 3.5 Gm OU Q4HR PRN Dry Eye(s) Ondansetron HCl 4 mg 01/14/21 22:21 Ondansetron 4 Mg/2 Ml Inj IV Q8H PRN Nausea And Vomiting Senna/Docusate Sodium 1 tab 01/15/21 22:00 01/15/21 22:00 Sennosides/Docusate Sodium 8.6/50 Mg Tab FEEDTUBE 1 tab BID REANNA Administration Simple Syrup 15 ml 01/15/21 14:23 Simple Syrup 15 Ml FEEDTUBE PRN PRN Hypoglycemia Simple Syrup 30 ml 01/15/21 14:23 Simple Syrup 15 Ml FEEDTUBE PRN PRN Hypoglycemia Sodium Bicarbonate 325 mg 01/15/21 14:23 Sodium Bicarbonate 325 Mg Tab FEEDTUBE PRN PRN For Clogged Feeding Tube Sodium Chloride 10 ml 01/15/21 10:00 01/15/21 22:00 Sodium Chloride 0.9% 10 Ml Flush Syringe IV 10 ml BID REANNA Administration Sodium Chloride 10 ml 01/14/21 22:21 Sodium Chloride 0.9% 10 Ml Flush Syringe IV PRN PRN LINE FLUSH Nutrition/Malnutrition Assess - Dietary Evaluation Nutrition/Malnutrition Findings: Nutrition Notes Start: 01/15/21 13:56 Freq: Status: Active Protocol: Document 01/15/21 13:56 GB (Rec: 01/15/21 14:16 GB [email or web address]) Nutrition Notes Need for Assessment generated from: MD Order Initial or Follow up Assessment Current Diagnosis COPD,Heart Failure Other Pertinent Diagnosis SOB Current Diet NPO Labs/Tests 01/15: glucose 168, Ca 7.8 Pertinent Medications fentanyl Citrate, Levofloxacin /Dextrose, prpofol 2.585ml/hr (68kcal), NaCl Height 5 ft 4 in Weight 78.018 kg [place] Body Weight (kg) 54.54 BMI 29.5 Weight change and time frame admit weight Weight Status Overweight Subjective/Other Information Pt has been admitted in the past Currently intubated and sedated Percent of energy/protein needs met: 0% Burn Absent Trauma Absent GI Symptoms None Food Allergy Yes Current % PO Other Minimum of two criteria No #2 Nutrition Diagnosis Inadequate energy intake Comments: intubated and sedated Etiology CHF, SOB As Evidenced by Signs and Symptoms Intubated and sedated #1 Nutrition Diagnosis Food and nutrition-related knowledge deficit Comments: consult for nutrition education - pt intubated and sedated, pt known to hospital, education not a appropriate at this time Etiology CHF As Evidenced by Signs and Symptoms Consult for nutrition therapy education Is patient on ventilator? Yes Is Patient Ambulatory and/or Out of Bed No REE-([place]-confined to bed) 1624.752 Kcal/Kg value to use for calculation 20 Approximate Energy Requirements Using 1560 kcal/Kg Calculation Used for Recommendations Kcal/kg Additional Notes Protein: 1-1.2 g/kg @ 78k -94g Fluids: 1 ml/kcal or per MD Nutrition Intervention Change Diet Order: Advance to Cardiac when medically feasible Nutrition Support: Vital AF 1.2 goal rate 50ml/hr Flush 25ml/hr Kcal 1,440 Protein (gm) 90 Fat (gm) 65 Fluid (mL) 973 Education Handouts Provided If patient admitted to floor, CHF education packet to be reviewed and provided. Goal #1 Extubation and diet advanced to Cardiac. Goal #2 Tolerate TF Vital AF 1.2 at goal rate of 50ml/hr Follow-Up By: 01/19/21 Additional Comments f/u: TF goal 60ml/hr, diet advanced, vent status, provide chf nutrition edu
[2021-01-16] MEDS: APIXABAN 5 MG TAB PO SCH (09:10)
[2021-01-16] MEDS: SENNOSIDES/DOCUSATE SODIUM 8.6/50 MG TAB FEEDTUBE SCH (09:10)
[2021-01-16] MEDS: FAMOTIDINE 20 MG/2 ML INJ IV SCH (09:11)
--- NOTE | 2021-01-16 14:35 | Progress Note ---
Assessment and Plan Acute hypoxemic respiratory failure Acute asthma exacerbation Community acquired pneumonia DM II History of congestive heart failure GERD History of arthritis Metabolic acidosis at presentation Leukocytosis at presentation Elevated serum transaminases - placed on 2 hours SBT - trial of extubation if passes - continue care as below otherwise; - continue Daily SAT and SBT assessment as tolerated - continue to wean supplemental oxygen for target O2 sat's > 90% acutely - VAP bundle addressed - continue lung protective strategies - continue bronchodilators with pulmonary hygiene per RT - wean per pulmonary driven protocols otherwise - continue accuchecks with glycemic control per SSI (While critically ill target blood glucose of 140-180 mg/dL; avoid hypoglycemia) - sedation prn for target RASS 0 to -1 - avoid nephrotoxins, renally dose all medications - continue to avoid benzodiazepine's, reduce the possibility of delirium - AB's per ID rec's - prn analgesia per CPOT score - Maintenance of sleep-wake cycle, avoid delirium - continue enteral nutritional support at goal rate as tolerated - G.I. & VTE prophylaxis - PT/OT/ROM exercises - continue mobility protocols for pressure ulcer prophylaxis - Monitor hemodynamics closely - continue other care per attending / other consultants - discharge planning ongoing concurrently .... Re-evaluate in am & prn CONDITION: CRITICAL PROGNOSIS: GUARDED CODE STATUS: FULL CODE The high probability of a clinically significant, sudden or life-threatening deterioration of the [respiratory & cardiovascular] system(s) required my full and direct attention, intervention and personal management. The aggregate critical care time was [34] minutes without overlap. Time includes spent on; [x] Data Review and interpretation [x] Patient assessment and monitoring of vital signs [x] Documentation [x] Medication orders and management Subjective Date of service: 01/16/21 Principal diagnosis: Acute hypoxemic respiratory failure; AE-Asthma; CAP; DM II; CHF Interval history: Patient is seen today for: Acute hypoxemic respiratory failure; AE-Asthma; CAP; DM II; CHF Seen and examined at bedside; 24hour events reviewed; nursing and respiratory care staff consulted; no adverse overnight events reported to me; resting in bed; wants ETT out; doing better; denies acute chest pain; No N/V/F/C Objective Vital Signs - 12hr 01/16/21 01/16/21 01/16/21 03:01 03:15 03:31 Pulse Rate 73 71 82 Pulse Rate [ Anterior Bilateral Throughout] Pulse Rate [ From Monitor] Pulse Rate [ Right Dorsalis Pedis] Respiratory 12 12 11 L Rate Respiratory Rate [Anterior Bilateral Throughout] Blood Pressure 107/62 107/62 107/62 O2 Sat by Pulse 99 98 99 Oximetry 01/16/21 01/16/21 01/16/21 03:45 04:00 04:01 Pulse Rate 123 H 73 93 H Pulse Rate [ Anterior Bilateral Throughout] Pulse Rate [ From Monitor] Pulse Rate [ Right Dorsalis Pedis] Respiratory 11 L 6 L 12 Rate Respiratory Rate [Anterior Bilateral Throughout] Blood Pressure 107/62 107/62 164/94 O2 Sat by Pulse 98 99 97 Oximetry 01/16/21 01/16/21 01/16/21 04:15 04:31 04:45 Pulse Rate 95 H 141 H 101 H Pulse Rate [ Anterior Bilateral Throughout] Pulse Rate [ From Monitor] Pulse Rate [ Right Dorsalis Pedis] Respiratory 12 11 L 12 Rate Respiratory Rate [Anterior Bilateral Throughout] Blood Pressure 164/94 164/94 107/62 O2 Sat by Pulse 97 100 98 Oximetry 01/16/21 01/16/21 01/16/21 05:01 05:15 05:31 Pulse Rate 98 H 157 H 128 H Pulse Rate [ Anterior Bilateral Throughout] Pulse Rate [ From Monitor] Pulse Rate [ Right Dorsalis Pedis] Respiratory 12 12 10 L Rate Respiratory Rate [Anterior Bilateral Throughout] Blood Pressure 169/79 169/79 169/79 O2 Sat by Pulse 98 99 99 Oximetry 01/16/21 01/16/21 01/16/21 05:45 06:15 06:31 Pulse Rate 114 H 112 H 138 H Pulse Rate [ Anterior Bilateral Throughout] Pulse Rate [ From Monitor] Pulse Rate [ Right Dorsalis Pedis] Respiratory 12 11 L 12 Rate Respiratory Rate [Anterior Bilateral Throughout] Blood Pressure 169/79 165/81 165/81 O2 Sat by Pulse 98 99 99 Oximetry 01/16/21 01/16/21 01/16/21 06:45 07:00 07:01 Pulse Rate 92 H 91 H Pulse Rate [ Anterior Bilateral Throughout] Pulse Rate [ 71 From Monitor] Pulse Rate [ Right Dorsalis Pedis] Respiratory 12 16 12 Rate Respiratory Rate [Anterior Bilateral Throughout] Blood Pressure 165/81 102/57 O2 Sat by Pulse 98 98 98 Oximetry 01/16/21 01/16/21 01/16/21 07:15 07:31 07:45 Pulse Rate 111 H 87 84 Pulse Rate [ Anterior Bilateral Throughout] Pulse Rate [ From Monitor] Pulse Rate [ Right Dorsalis Pedis] Respiratory 10 L 12 12 Rate Respiratory Rate [Anterior Bilateral Throughout] Blood Pressure 102/57 102/57 102/57 O2 Sat by Pulse 100 98 98 Oximetry 01/16/21 01/16/21 01/16/21 08:00 08:01 08:15 Pulse Rate 89 84 79 Pulse Rate [ Anterior Bilateral Throughout] Pulse Rate [ From Monitor] Pulse Rate [ Right Dorsalis Pedis] Respiratory 12 12 Rate Respiratory Rate [Anterior Bilateral Throughout] Blood Pressure 107/60 102/57 O2 Sat by Pulse 98 98 Oximetry 01/16/21 01/16/21 01/16/21 08:16 08:18 08:31 Pulse Rate 85 76 Pulse Rate [ 90 Anterior Bilateral Throughout] Pulse Rate [ From Monitor] Pulse Rate [ Right Dorsalis Pedis] Respiratory 12 Rate Respiratory 12 Rate [Anterior Bilateral Throughout] Blood Pressure 102/57 O2 Sat by Pulse 98 98 Oximetry 01/16/21 01/16/21 01/16/21 08:41 08:51 09:00 Pulse Rate 70 69 70 Pulse Rate [ Anterior Bilateral Throughout] Pulse Rate [ From Monitor] Pulse Rate [ Right Dorsalis Pedis] Respiratory 12 12 12 Rate Respiratory Rate [Anterior Bilateral Throughout] Blood Pressure 107/60 99/57 99/57 O2 Sat by Pulse 99 99 99 Oximetry 01/16/21 01/16/21 01/16/21 09:11 09:21 09:31 Pulse Rate 65 87 72 Pulse Rate [ Anterior Bilateral Throughout] Pulse Rate [ From Monitor] Pulse Rate [ Right Dorsalis Pedis] Respiratory 12 12 12 Rate Respiratory Rate [Anterior Bilateral Throughout] Blood Pressure 99/57 99/57 99/57 O2 Sat by Pulse 100 97 98 Oximetry 01/16/21 01/16/21 01/16/21 09:41 09:51 10:01 Pulse Rate 71 69 68 Pulse Rate [ Anterior Bilateral Throughout] Pulse Rate [ From Monitor] Pulse Rate [ Right Dorsalis Pedis] Respiratory 12 12 12 Rate Respiratory Rate [Anterior Bilateral Throughout] Blood Pressure 99/57 103/71 103/71 O2 Sat by Pulse 99 98 99 Oximetry 01/16/21 01/16/21 01/16/21 10:11 10:21 10:31 Pulse Rate 70 67 67 Pulse Rate [ Anterior Bilateral Throughout] Pulse Rate [ From Monitor] Pulse Rate [ Right Dorsalis Pedis] Respiratory 12 12 12 Rate Respiratory Rate [Anterior Bilateral Throughout] Blood Pressure 103/71 103/71 103/71 O2 Sat by Pulse 99 99 99 Oximetry 01/16/21 01/16/21 01/16/21 10:41 10:51 11:01 Pulse Rate 64 64 67 Pulse Rate [ Anterior Bilateral Throughout] Pulse Rate [ From Monitor] Pulse Rate [ Right Dorsalis Pedis] Respiratory 12 12 12 Rate Respiratory Rate [Anterior Bilateral Throughout] Blood Pressure 103/71 105/62 105/62 O2 Sat by Pulse 99 99 99 Oximetry 01/16/21 01/16/21 01/16/21 11:11 11:15 11:31 Pulse Rate 79 89 85 Pulse Rate [ Anterior Bilateral Throughout] Pulse Rate [ From Monitor] Pulse Rate [ Right Dorsalis Pedis] Respiratory 11 L 11 L 12 Rate Respiratory Rate [Anterior Bilateral Throughout] Blood Pressure 105/62 105/62 105/62 O2 Sat by Pulse 99 98 99 Oximetry 01/16/21 01/16/21 01/16/21 11:41 11:50 12:00 Pulse Rate 71 118 H Pulse Rate [ Anterior Bilateral Throughout] Pulse Rate [ 71 From Monitor] Pulse Rate [ 77 Right Dorsalis Pedis] Respiratory 12 11 L 12 Rate Respiratory Rate [Anterior Bilateral Throughout] Blood Pressure 105/62 184/108 O2 Sat by Pulse 100 94 98 Oximetry 01/16/21 01/16/21 01/16/21 12:01 12:11 12:21 Pulse Rate 90 81 129 H Pulse Rate [ Anterior Bilateral Throughout] Pulse Rate [ From Monitor] Pulse Rate [ Right Dorsalis Pedis] Respiratory 12 12 9 L Rate Respiratory Rate [Anterior Bilateral Throughout] Blood Pressure 144/81 144/81 144/81 O2 Sat by Pulse 99 98 99 Oximetry 01/16/21 01/16/21 01/16/21 12:28 12:31 12:45 Pulse Rate 85 131 H 135 H Pulse Rate [ Anterior Bilateral Throughout] Pulse Rate [ From Monitor] Pulse Rate [ Right Dorsalis Pedis] Respiratory 11 L 8 L 14 Rate Respiratory Rate [Anterior Bilateral Throughout] Blood Pressure 144/81 144/81 O2 Sat by Pulse 98 98 99 Oximetry 01/16/21 01/16/21 01/16/21 13:01 13:15 13:20 Pulse Rate 128 H 118 H 141 H Pulse Rate [ Anterior Bilateral Throughout] Pulse Rate [ From Monitor] Pulse Rate [ Right Dorsalis Pedis] Respiratory 18 8 L 12 Rate Respiratory Rate [Anterior Bilateral Throughout] Blood Pressure 159/101 159/103 192/120 O2 Sat by Pulse 97 98 97 Oximetry 01/16/21 01/16/21 01/16/21 13:31 13:41 13:50 Pulse Rate 139 H Pulse Rate [ Anterior Bilateral Throughout] Pulse Rate [ From Monitor] Pulse Rate [ Right Dorsalis Pedis] Respiratory 18 14 10 L Rate Respiratory Rate [Anterior Bilateral Throughout] Blood Pressure 192/120 192/120 178/98 O2 Sat by Pulse 97 92 Oximetry Constitutional: no acute distress, alert, other (middle aged obese female with mildly increased respiratory effort at rest) Eyes: non-icteric ENT: oropharynx moist Neck: supple, no lymphadenopathy, no JVD Effort: mildly labored Ascultation: Bilateral: diminished breath sounds, rhonchi (scant) Percussion: Bilateral: not dull Cardiovascular: regular rate and rhythm Gastrointestinal: normoactive bowel sounds, soft, non-tender, non-distended Integumentary: normal Extremities: no cyanosis, no edema, pulses normal, no ischemia or petechiae Neurologic: normal mental status, non-focal exam (grossly), pupils equal and round, motor strength normal and Psychiatric: anxious CBC and BMP: 01/16/21 00:50 01/16/21 00:50 ABG, PT/INR, D-dimer: ABG ABG pH 7.312 (7.320-7.450) L 01/16/21 06:06 POC ABG pCO2 46.2 mmHg (32.0-48.0) 01/16/21 06:06 ABG pCO2 38.6 mm Hg 01/15/21 01:39 POC ABG pO2 105.3 mmHg (83-108) 01/16/21 06:06 ABG pO2 211.1 mm Hg (80.0-90.0) H 01/15/21 01:39 POC ABG HCO3 22.8 01/16/21 06:06 ABG O2 Saturation 98.0 (0-100) 01/16/21 06:06 PT/INR, D-dimer PT 19.2 Sec. (12.2-14.9) H 01/16/21 00:50 INR 1.57 (0.87-1.13) H 01/16/21 00:50 Abnormal lab findings: Abnormal Labs 01/14/21 01/14/21 01/14/21 19:54 19:54 19:54 WBC 15.8 H RBC Lymph % (Auto) Lymph # (Auto) Seg Neutrophils % Seg Neuts % (Manual) 38.0 L Lymphocytes % (Manual) 54.0 H Lymphocytes # (Manual) 8.5 H PT 19.5 H INR 1.60 H ABG pH ABG pO2 ABG O2 Saturation ABG Hemoglobin ABG Potassium ABG Chloride ABG Glucose Carboxyhemoglobin Sodium 136 L Chloride Carbon Dioxide 19 L Creatinine Glucose 300 H POC Glucose Lactic Acid Calcium 8.1 L AST 289 H ALT 190 H Alkaline Phosphatase 161 H Total Protein Albumin 3.8 L Arterial Blood Glucose Ur Specific [place] Salicylates Acetaminophen 01/14/21 01/14/21 01/14/21 19:54 19:54 19:54 WBC RBC Lymph % (Auto) Lymph # (Auto) Seg Neutrophils % Seg Neuts % (Manual) Lymphocytes % (Manual) Lymphocytes # (Manual) PT INR ABG pH ABG pO2 ABG O2 Saturation ABG Hemoglobin ABG Potassium ABG Chloride ABG Glucose Carboxyhemoglobin Sodium Chloride Carbon Dioxide Creatinine Glucose POC Glucose Lactic Acid 5.10 H* Calcium AST ALT Alkaline Phosphatase Total Protein Albumin Arterial Blood Glucose Ur Specific [place] Salicylates < 0.3 L Acetaminophen 5.9 L 01/14/21 01/14/21 01/15/21 21:20 23:42 01:39 WBC RBC Lymph % (Auto) Lymph # (Auto) Seg Neutrophils % Seg Neuts % (Manual) Lymphocytes % (Manual) Lymphocytes # (Manual) PT INR ABG pH ABG pO2 211.1 H ABG O2 Saturation 99.3 H ABG Hemoglobin 10.9 L ABG Potassium ABG Chloride ABG Glucose Carboxyhemoglobin Sodium Chloride Carbon Dioxide Creatinine Glucose POC Glucose Lactic Acid 3.20 H* Calcium AST ALT Alkaline Phosphatase Total Protein Albumin Arterial Blood Glucose Ur Specific [place] 1.035 H Salicylates Acetaminophen 01/15/21 01/15/21 01/15/21 04:26 04:26 04:26 WBC RBC Lymph % (Auto) 7.8 L Lymph # (Auto) 0.6 L Seg Neutrophils % 88.1 H Seg Neuts % (Manual) Lymphocytes % (Manual) Lymphocytes # (Manual) PT 19.6 H INR 1.61 H ABG pH ABG pO2 ABG O2 Saturation ABG Hemoglobin ABG Potassium ABG Chloride ABG Glucose Carboxyhemoglobin Sodium Chloride 111.1 H Carbon Dioxide Creatinine Glucose 168 H POC Glucose Lactic Acid Calcium 7.8 L AST ALT Alkaline Phosphatase Total Protein Albumin Arterial Blood Glucose Ur Specific [place] Salicylates Acetaminophen 01/15/21 01/15/21 01/15/21 04:26 07:41 17:56 WBC RBC Lymph % (Auto) Lymph # (Auto) Seg Neutrophils % Seg Neuts % (Manual) Lymphocytes % (Manual) Lymphocytes # (Manual) PT INR ABG pH ABG pO2 ABG O2 Saturation ABG Hemoglobin ABG Potassium ABG Chloride ABG Glucose Carboxyhemoglobin Sodium Chloride Carbon Dioxide Creatinine Glucose POC Glucose 157 H 150 H Lactic Acid 2.20 H* Calcium AST ALT Alkaline Phosphatase Total Protein Albumin Arterial Blood Glucose Ur Specific [place] Salicylates Acetaminophen 01/16/21 01/16/21 01/16/21 00:10 00:50 00:50 WBC 13.6 H RBC 3.53 L Lymph % (Auto) Lymph # (Auto) Seg Neutrophils % Seg Neuts % (Manual) Lymphocytes % (Manual) Lymphocytes # (Manual) PT 19.2 H INR 1.57 H ABG pH ABG pO2 ABG O2 Saturation ABG Hemoglobin ABG Potassium ABG Chloride ABG Glucose Carboxyhemoglobin Sodium Chloride Carbon Dioxide Creatinine Glucose POC Glucose 133 H Lactic Acid Calcium AST ALT Alkaline Phosphatase Total Protein Albumin Arterial Blood Glucose Ur Specific [place] Salicylates Acetaminophen 01/16/21 01/16/21 01/16/21 00:50 03:06 06:06 WBC RBC Lymph % (Auto) Lymph # (Auto) Seg Neutrophils % Seg Neuts % (Manual) Lymphocytes % (Manual) Lymphocytes # (Manual) PT INR ABG pH 7.312 L ABG pO2 ABG O2 Saturation ABG Hemoglobin ABG Potassium 4.6 H ABG Chloride 110.0 H ABG Glucose 126 H Carboxyhemoglobin 0.1 L Sodium Chloride Carbon Dioxide Creatinine 1.3 H D Glucose POC Glucose Lactic Acid Calcium AST 46 H ALT 129 H Alkaline Phosphatase Total Protein 5.9 L Albumin 3.5 L Arterial Blood Glucose 126 H Ur Specific [place] Salicylates Acetaminophen 01/16/21 06:39 WBC RBC Lymph % (Auto) Lymph # (Auto) Seg Neutrophils % Seg Neuts % (Manual) Lymphocytes % (Manual) Lymphocytes # (Manual) PT INR ABG pH ABG pO2 ABG O2 Saturation ABG Hemoglobin ABG Potassium ABG Chloride ABG Glucose Carboxyhemoglobin Sodium Chloride Carbon Dioxide Creatinine Glucose POC Glucose 123 H Lactic Acid Calcium AST ALT Alkaline Phosphatase Total Protein Albumin Arterial Blood Glucose Ur Specific [place] Salicylates Acetaminophen Chest x-ray: pending Allied health notes reviewed: nursing
[2021-01-16] MEDS ORDERED: traZODone 50 MG TAB PO ONE (21:04)
[2021-01-17 04:37] LABS: Hematocrit 32.6 % (30.3-42.9); Hemoglobin 11.2 gm/dl (10.1-14.3); Mean Corpuscular HGB Conc 34 % (30-34); Mean Corpuscular Volume 88 fl (79-97); Platelet Count 209 K/mm3 (140-440); Red Blood Count 3.73 M/mm3 (3.65-5.03)
--- NOTE | 2021-01-17 07:48 | XRay Report ---
CHEST 1 VIEW INDICATION / CLINICAL INFORMATION: follow up respiratory failure. FINDINGS: SUPPORT DEVICES: Removal of the endotracheal tube and esophagogastric tube.. HEART / MEDIASTINUM: No significant abnormality. LUNGS / PLEURA: Mild increase in bibasilar opacities when compared to 01/14/2021. Signer Name: Josiah Du MD Signed: 01/17/2021 7:43 AM Workstation Name: [id number]
[2021-01-17] MEDS ORDERED: DEXTROSE 50% IN WATER (25GM) 50 ML SYRINGE IV PRN (08:09)
[2021-01-17] MEDS: INSULIN LISPRO 100 UNIT/ML SUB-Q SCH ×5 (08:18→22:38)
[2021-01-17] MEDS: methylPREDNISolone Sod Succinate 40 MG/1 ML INJ IV SCH ×3 (08:19→22:11)
[2021-01-17] MEDS: APIXABAN 5 MG TAB PO SCH ×3 (08:20→22:11)
[2021-01-17] MEDS: FAMOTIDINE 20 MG/2 ML INJ IV SCH ×3 (08:20→22:11)
[2021-01-17] MEDS: SENNOSIDES/DOCUSATE SODIUM 8.6/50 MG TAB FEEDTUBE SCH ×3 (08:20→22:11)
--- NOTE | 2021-01-17 08:21 | Progress Note ---
Assessment and Plan Assessment and plan: #Acute hypoxic respiratory failure -extubated 01/16 -nasal cannula at 5 L/min; will titrate down -continue steroids -Critical care following, recs appreciated #Acute asthma exacerbation -patient with extensive history and visits for asthma exacerbation -has been intubated multiple times -continue steroids for now #Pneumonia -procalcitonin 0.5 -sputum culture with few GPCs -MRSA culture ordered -Covid PCR ordered -currently on levaquin, will continue #Lactic acidosis -resolved #Elevated liver enzymes -AST/ALT down trending #Hx Congestive heart failure -BNP 192 -CXR with vascular congestion -not in acute exacerbation -TTE 01/15/2021: EF 55-60% #Hypertension -soft blood pressures while inpatient -will hold home blood pressure medications for now #History of diabetes -SSI for now #History of atrial fibrillation -continue Eliquis & metoprolol #CODE STATUS -Full code Disposition Plan: Continue medical management Total Time Spent with Patient (Minutes): 20 minutes History Interval history: No acute events overnight. Stable on nasal cannula. Reports chills denies other complaints. Hospitalist Physical - Physical exam Narrative exam: GENERAL: Well-developed well-nourished. No acute distress HEENT: Nasal cannula at 5 L/min CHEST/LUNGS: CTAB on room air HEART/CARDIOVASCULAR: RRR. No murmur, rubs or gallops appreciated. ABDOMEN: +BS. NT/ND. NEURO: No focal deficits noted EXTREMITIES: No cyanosis, clubbing or edema. PSYCH: AAOx3. Cooperative. - Constitutional Vitals: Temp Pulse Resp BP Pulse Ox 98.2 F 87 16 178/98 99 01/15/21 01:02 01/16/21 20:22 01/16/21 20:22 01/16/21 13:50 01/16/21 15:30 General appearance: Present: no acute distress, well-nourished, other (Intubated and Sedated) HEART Score - HEART Score Troponin: Troponin T < 0.010 ng/mL (0.00-0.029) 01/14/21 19:54 Results - Labs CBC & Chem 7: 01/17/21 04:13 01/16/21 00:50 Labs: Laboratory Last Values WBC 8.3 K/mm3 (4.5-11.0) 01/17/21 04:13 RBC 3.73 M/mm3 (3.65-5.03) 01/17/21 04:13 Hgb 11.2 gm/dl (10.1-14.3) 01/17/21 04:13 Hct 32.6 % (30.3-42.9) 01/17/21 04:13 MCV 88 fl (79-97) 01/17/21 04:13 MCH 30 pg (28-32) 01/17/21 04:13 MCHC 34 % (30-34) 01/17/21 04:13 RDW 14.0 % (13.2-15.2) 01/17/21 04:13 Plt Count 209 K/mm3 (140-440) 01/17/21 04:13 Lymph % (Auto) 7.8 % (13.4-35.0) L 01/15/21 04:26 [place] % (Auto) 4.0 % (0.0-7.3) 01/15/21 04:26 Eos % (Auto) 0.0 % (0.0-4.3) 01/15/21 04:26 Baso % (Auto) 0.1 % (0.0-1.8) 01/15/21 04:26 Lymph # (Auto) 0.6 K/mm3 (1.2-5.4) L 01/15/21 04:26 [place] # (Auto) 0.3 K/mm3 (0.0-0.8) 01/15/21 04:26 Eos # (Auto) 0.0 K/mm3 (0.0-0.4) 01/15/21 04:26 Baso # (Auto) 0.0 K/mm3 (0.0-0.1) 01/15/21 04:26 Add Manual Diff Complete 01/14/21 19:54 Total Counted 100 01/14/21 19:54 Seg Neutrophils % 88.1 % (40.0-70.0) H 01/15/21 04:26 Seg Neuts % (Manual) 38.0 % (40.0-70.0) L 01/14/21 19:54 Band Neutrophils % 5.0 % 01/14/21 19:54 Lymphocytes % (Manual) 54.0 % (13.4-35.0) H 01/14/21 19:54 Monocytes % (Manual) 1.0 % (0.0-7.3) 01/14/21 19:54 Eosinophils % (Manual) 1.0 % (0.0-4.3) 01/14/21 19:54 Metamyelocytes % 1.0 % 01/14/21 19:54 Nucleated RBC % Not Reportable 01/14/21 19:54 Seg Neutrophils # 6.7 K/mm3 (1.8-7.7) 01/15/21 04:26 Seg Neutrophils # Man 6.0 K/mm3 (1.8-7.7) 01/14/21 19:54 Band Neutrophils # 0.8 K/mm3 01/14/21 19:54 Lymphocytes # (Manual) 8.5 K/mm3 (1.2-5.4) H 01/14/21 19:54 Abs React Lymphs (Man) 0.0 K/mm3 01/14/21 19:54 Monocytes # (Manual) 0.2 K/mm3 (0.0-0.8) 01/14/21 19:54 Eosinophils # (Manual) 0.2 K/mm3 (0.0-0.4) 01/14/21 19:54 Basophils # (Manual) 0.0 K/mm3 (0.0-0.1) 01/14/21 19:54 Metamyelocytes # 0.2 K/mm3 01/14/21 19:54 Myelocytes # 0.0 K/mm3 01/14/21 19:54 Promyelocytes # 0.0 K/mm3 01/14/21 19:54 Blast Cells # 0.0 K/mm3 01/14/21 19:54 WBC Morphology Not Reportable 01/14/21 19:54 Hypersegmented Neuts Not Reportable 01/14/21 19:54 Hyposegmented Neuts Not Reportable 01/14/21 19:54 Hypogranular Neuts Not Reportable 01/14/21 19:54 Smudge Cells Not Reportable 01/14/21 19:54 Toxic Granulation Not Reportable 01/14/21 19:54 Toxic Vacuolation Not Reportable 01/14/21 19:54 Dohle Bodies Not Reportable 01/14/21 19:54 Pelger-Huet Anomaly Not Reportable 01/14/21 19:54 Giuseppe Rods Not Reportable 01/14/21 19:54 Platelet Estimate Consistent w auto 01/14/21 19:54 Clumped Platelets Not Reportable 01/14/21 19:54 Plt Clumps, EDTA Not Reportable 01/14/21 19:54 Large Platelets Not Reportable 01/14/21 19:54 Giant Platelets Not Reportable 01/14/21 19:54 Platelet Satelliting Not Reportable 01/14/21 19:54 Plt Morphology Comment Not Reportable 01/14/21 19:54 RBC Morphology Not Reportable 01/14/21 19:54 Dimorphic RBCs Not Reportable 01/14/21 19:54 Polychromasia Not Reportable 01/14/21 19:54 Hypochromasia Not Reportable 01/14/21 19:54 Poikilocytosis 2+ 01/14/21 19:54 Anisocytosis 1+ 01/14/21 19:54 Microcytosis Not Reportable 01/14/21 19:54 Macrocytosis Not Reportable 01/14/21 19:54 Spherocytes Not Reportable 01/14/21 19:54 Pappenheimer Bodies Not Reportable 01/14/21 19:54 Sickle Cells Not Reportable 01/14/21 19:54 Target Cells Not Reportable 01/14/21 19:54 Tear Drop Cells Not Reportable 01/14/21 19:54 Ovalocytes Few 01/14/21 19:54 Helmet Cells Not Reportable 01/14/21 19:54 Phillips-[place]ancock Bodies Not Reportable 01/14/21 19:54 Marsing Rings Not Reportable 01/14/21 19:54 Latty Cells 1+ 01/14/21 19:54 Bite Cells Not Reportable 01/14/21 19:54 Crenated Cell Not Reportable 01/14/21 19:54 Elliptocytes Few 01/14/21 19:54 Acanthocytes (Spur) Not Reportable 01/14/21 19:54 Rouleaux Not Reportable 01/14/21 19:54 Hemoglobin C Crystals Not Reportable 01/14/21 19:54 Schistocytes Not Reportable 01/14/21 19:54 Malaria parasites Not Reportable 01/14/21 19:54 Alfonso Bodies Not Reportable 01/14/21 19:54 Hem Pathologist Commnt No 01/14/21 19:54 PT 19.2 Sec. (12.2-14.9) H 01/16/21 00:50 INR 1.57 (0.87-1.13) H 01/16/21 00:50 APTT 29.2 Sec. (24.2-36.6) 01/16/21 00:50 ABG pH 7.312 (7.320-7.450) L 01/16/21 06:06 POC ABG pCO2 46.2 mmHg (32.0-48.0) 01/16/21 06:06 ABG pCO2 38.6 mm Hg 01/15/21 01:39 POC ABG pO2 105.3 mmHg (83-108) 01/16/21 06:06 ABG pO2 211.1 mm Hg (80.0-90.0) H 01/15/21 01:39 POC ABG HCO3 22.8 01/16/21 06:06 ABG HCO3 24.5 mmol/L (20.0-26.0) 01/15/21 01:39 ABG O2 Saturation 98.0 (0-100) 01/16/21 06:06 ABG O2 Content 15.5 (0.0-44) 01/15/21 01:39 POC ABG Base Excess -3.4 01/16/21 06:06 ABG Base Excess 0.2 mmol/L (-2.0-3.0) 01/15/21 01:39 ABG Hemoglobin 12.0 (12.0-17.5) 01/16/21 06:06 ABG Oxyhemoglobin 97.6 (94-98) 01/16/21 06:06 ABG Carboxyhemoglobin 1.1 % (0.0-5.0) 01/15/21 01:39 ABG Methemoglobin 0.3 (0.0-1.5) 01/16/21 06:06 ABG Sodium 141.8 mmol/L (136.0-145.0) 01/16/21 06:06 ABG Potassium 4.6 mmol/L (3.40-4.50) H 01/16/21 06:06 ABG Chloride 110.0 mmol/L (98-107) H 01/16/21 06:06 ABG Glucose 126 mg/dL (65-95) H 01/16/21 06:06 Oxyhemoglobin 97.7 % (95.0-99.0) 01/15/21 01:39 Carboxyhemoglobin 0.1 (0.5-1.5) L 01/16/21 06:06 FiO2 50 % 01/15/21 01:39 FiO2 % 30.0 01/16/21 06:06 Sodium 142 mmol/L (137-145) 01/15/21 04:26 Potassium 4.4 mmol/L (3.6-5.0) 01/15/21 04:26 Chloride 111.1 mmol/L (98-107) H 01/15/21 04:26 Carbon Dioxide 24 mmol/L (22-30) 01/15/21 04:26 Anion Gap 11 mmol/L 01/15/21 04:26 BUN 11 mg/dL (7-17) 01/15/21 04:26 Creatinine 1.3 mg/dL (0.6-1.2) H D 01/16/21 00:50 Estimated GFR 51 ml/min 01/16/21 00:50 BUN/Creatinine Ratio 14 % 01/15/21 04:26 Glucose 168 mg/dL (65-100) H 01/15/21 04:26 POC Glucose 114 mg/dL (70-105) H 01/16/21 23:44 Lactic Acid 2.00 mmol/L (0.7-2.0) 01/15/21 08:44 Calcium 7.8 mg/dL (8.4-10.2) L 01/15/21 04:26 Total Bilirubin < 0.20 mg/dL (0.1-1.2) 01/16/21 03:06 Direct Bilirubin < 0.2 mg/dL (0-0.2) 01/16/21 03:06 Indirect Bilirubin 0.0 mg/dL 01/16/21 03:06 AST 46 units/L (5-40) H 01/16/21 03:06 ALT 129 units/L (7-56) H 01/16/21 03:06 Alkaline Phosphatase 118 units/L (35-129) 01/16/21 03:06 Troponin T < 0.010 ng/mL (0.00-0.029) 01/14/21 19:54 C-Reactive Protein 0.50 mg/dL (0.00-1.30) 01/16/21 00:50 NT-Pro-B Natriuret Pep 192.9 pg/mL (0-900) 01/14/21 19:54 Total Protein 5.9 g/dL (6.3-8.2) L 01/16/21 03:06 Albumin 3.5 g/dL (3.9-5) L 01/16/21 03:06 Albumin/Globulin Ratio 1.5 % 01/16/21 03:06 Triglycerides 58 mg/dL (2-149) 01/16/21 02:13 Procalcitonin 0.58 ng/mL (<0.15) 01/16/21 00:50 Arterial Blood Glucose 126 mg/dL (65-95) H 01/16/21 06:06 Urine Color Straw (Yellow) 01/14/21 21:20 Urine Turbidity Hazy (Clear) 01/14/21 21:20 Urine pH 5.0 (5.0-7.0) 01/14/21 21:20 Ur Specific [place] 1.035 (1.003-1.030) H 01/14/21 21:20 Urine Protein >500 mg/dL (Negative) 01/14/21 21:20 Urine Glucose (UA) 500 mg/dL (Negative) 01/14/21 21:20 Urine Ketones Negative mg/dL (Negative) 01/14/21 21:20 Urine Blood Negative (Negative) 01/14/21 21:20 Urine Nitrite Negative (Negative) 01/14/21 21:20 Ur Reducing Substances Not Reportable 01/14/21 21:20 Urine Bilirubin Negative (Negative) 01/14/21 21:20 Urine Ictotest Not Reportable 01/14/21 21:20 Urine Urobilinogen < 2.0 mg/dL (<2.0) 01/14/21 21:20 Ur Leukocyte Esterase Negative (Negative) 01/14/21 21:20 Urine WBC (Auto) 5.0 /HPF (0.0-6.0) 01/14/21 21:20 Urine RBC (Auto) 3.0 /HPF (0.0-6.0) 01/14/21 21:20 U Epithel Cells (Auto) 5.0 /HPF (0-13.0) 01/14/21 21:20 Hyaline Casts 28 /LPF 09/30/21 21:20 Urine Mucus Few /HPF 01/14/21 21:20 Salicylates < 0.3 mg/dL (2.8-20.0) L 01/14/21 19:54 Urine Opiates Screen Negative 01/14/21 21:20 Urine Methadone Screen Negative 01/14/21 21:20 Acetaminophen 5.9 ug/mL (10.0-30.0) L 01/14/21 19:54 Ur Barbiturates Screen Negative 01/14/21 21:20 Ur Phencyclidine Scrn Negative 01/14/21 21:20 Ur Amphetamines Screen Negative 01/14/21 21:20 U Benzodiazepines Scrn Negative 01/14/21 21:20 Urine Cocaine Screen Negative 01/14/21 21:20 U Marijuana (THC) Screen Negative 01/14/21 21:20 Drugs of Abuse Note Disclamer 01/14/21 21:20 Plasma/Serum Alcohol < 0.01 % (0-0.07) 01/14/21 19:54 Microbiology: Microbiology 01/14/21 19:54 Peripheral/Venous Blood Culture - Preliminary NO GROWTH AFTER 48 HOURS 01/14/21 20:03 Peripheral/Venous Blood Culture - Preliminary NO GROWTH AFTER 48 HOURS 01/15/21 Unknown Sputum - Endotracheal Wash Sputum Culture - Preliminary [place]/IV: Voiding Method Indwelling Catheter Active Medications - Current Medications Current Medications: Generic Name Dose Route Start Last Admin Trade Name Freq PRN Reason Stop Dose Admin Acetaminophen 650 mg 01/14/21 22:21 Acetaminophen 325 Mg Tab PO Q6H PRN Pain MILD(1-3)/Fever >100.5/ANTONIO Albuterol/Ipratropium 1 ampul 01/15/21 20:00 01/16/21 20:21 Ipratropium/Albuterol Sulfate 3 Ml Ampul.Neb IH 1 ampul TIDRT REANNA Administration Lipase/Protease/Amylase 1 each 01/15/21 14:23 Lipase 10,500/Protease 25,000/Amylase 43,750 (Units) Dr Arnold FEEDTUBE PRN PRN For Clogged Feeding Tube Apixaban 5 mg 01/15/21 22:00 01/16/21 09:10 Apixaban 5 Mg Tab PO 5 mg Q12HR REANNA Administration Protocol Dextrose 50 ml 01/15/21 15:27 Dextrose 50% In Water (25gm) 50 Ml Syringe IV Q30MIN PRN Hypoglycemia Protocol Famotidine 20 mg 01/15/21 15:00 01/16/21 09:11 Famotidine 20 Mg/2 Ml Inj IV 20 mg BID REANNA Administration Hydrophilic Ointment 1 applic 01/15/21 14:07 Lip Therapy Vaseline TP Q2HR PRN Dry Lips Levofloxacin/Dextrose 750 mg in 150 mls @ 100 mls/hr 01/14/21 23:00 01/15/21 23:00 Levaquin 750mg/150ml IV 100 mls/hr Q24H REANNA Administration Protocol Insulin Human Lispro 0 unit 01/16/21 12:00 01/17/21 08:18 Insulin Lispro 100 Unit/Ml SUB-Q Not Given Q6HR [facility] Protocol Insulin Human Lispro 0 unit 01/17/21 11:30 Insulin Lispro 100 Unit/Ml SUB-Q ACHS [facility] Protocol Magnesium Hydroxide 30 ml 01/14/21 22:21 Magnesium Hydroxide (Mom) Oral Liqd Udc PO Q4H PRN Constipation Methylprednisolone Sodium Succinate 40 mg 01/15/21 06:00 01/16/21 13:07 Methylprednisolone Sod Succinate 40 Mg/1 Ml Inj IV 40 mg Q8HR REANNA Administration Morphine Sulfate 2 mg 01/14/21 22:21 Morphine 2 Mg/1 Ml Inj IV Q4H PRN Pain, Moderate (4-6) Morphine Sulfate 4 mg 01/14/21 22:21 01/16/21 04:45 Morphine 4 Mg/1 Ml Inj IV 4 mg Q4H PRN Administration Pain , Severe (7-10) Multi-Ingred Cream/Lotion/Oil/Oint 1 applic 01/15/21 14:07 Mineral Oil/Petrolatum, White Ophth Oint 3.5 Gm OU Q4HR PRN Dry Eye(s) Ondansetron HCl 4 mg 01/14/21 22:21 Ondansetron 4 Mg/2 Ml Inj IV Q8H PRN Nausea And Vomiting Senna/Docusate Sodium 1 tab 01/15/21 22:00 01/16/21 09:10 Sennosides/Docusate Sodium 8.6/50 Mg Tab FEEDTUBE 1 tab BID REANNA Administration Simple Syrup 15 ml 01/15/21 14:23 Simple Syrup 15 Ml FEEDTUBE PRN PRN Hypoglycemia Simple Syrup 30 ml 01/15/21 14:23 Simple Syrup 15 Ml FEEDTUBE PRN PRN Hypoglycemia Sodium Bicarbonate 325 mg 01/15/21 14:23 Sodium Bicarbonate 325 Mg Tab FEEDTUBE PRN PRN For Clogged Feeding Tube Sodium Chloride 10 ml 01/15/21 10:00 01/16/21 12:00 Sodium Chloride 0.9% 10 Ml Flush Syringe IV 10 ml BID REANNA Administration Sodium Chloride 10 ml 01/14/21 22:21 Sodium Chloride 0.9% 10 Ml Flush Syringe IV PRN PRN LINE FLUSH Nutrition/Malnutrition Assess - Dietary Evaluation Nutrition/Malnutrition Findings: Nutrition Notes Start: 01/15/21 13:56 Freq: Status: Active Protocol: Document 01/15/21 13:56 GB (Rec: 01/15/21 14:16 GB [id number]) Nutrition Notes Need for Assessment generated from: MD Order Initial or Follow up Assessment Current Diagnosis COPD,Heart Failure Other Pertinent Diagnosis SOB Current Diet NPO Labs/Tests 01/15: glucose 168, Ca 7.8 Pertinent Medications fentanyl Citrate, Levofloxacin /Dextrose, prpofol 2.585ml/hr (68kcal), NaCl Height 5 ft 4 in Weight 78.018 kg [place] Body Weight (kg) 54.54 BMI 29.5 Weight change and time frame admit weight Weight Status Overweight Subjective/Other Information Pt has been admitted in the past Currently intubated and sedated Percent of energy/protein needs met: 0% Burn Absent Trauma Absent GI Symptoms None Food Allergy Yes Current % PO Other Minimum of two criteria No #2 Nutrition Diagnosis Inadequate energy intake Comments: intubated and sedated Etiology CHF, SOB As Evidenced by Signs and Symptoms Intubated and sedated #1 Nutrition Diagnosis Food and nutrition-related knowledge deficit Comments: consult for nutrition education - pt intubated and sedated, pt known to hospital, education not a appropriate at this time Etiology CHF As Evidenced by Signs and Symptoms Consult for nutrition therapy education Is patient on ventilator? Yes Is Patient Ambulatory and/or Out of Bed No REE-([facility]-confined to bed) 1624.752 Kcal/Kg value to use for calculation 20 Approximate Energy Requirements Using 1560 kcal/Kg Calculation Used for Recommendations Kcal/kg Additional Notes Protein: 1-1.2 g/kg @ 78k -94g Fluids: 1 ml/kcal or per MD Nutrition Intervention Change Diet Order: Advance to Cardiac when medically feasible Nutrition Support: Vital AF 1.2 goal rate 50ml/hr Flush 25ml/hr Kcal 1,440 Protein (gm) 90 Fat (gm) 65 Fluid (mL) 973 Education Handouts Provided If patient admitted to floor, CHF education packet to be reviewed and provided. Goal #1 Extubation and diet advanced to Cardiac. Goal #2 Tolerate TF Vital AF 1.2 at goal rate of 50ml/hr Follow-Up By: 01/19/21 Additional Comments f/u: TF goal 60ml/hr, diet advanced, vent status, provide chf nutrition edu
[2021-01-17] MEDS: IPRATROPIUM/ALBUTEROL SULFATE 3 ML AMPUL.NEB IH SCH ×3 (08:30→20:36)
[2021-01-17 15:50] LABS: BUN/Creatinine Ratio 24; Blood Urea Nitrogen 19 mg/dL (7-17); Calcium 8.7 mg/dL (8.4-10.2); Hemolysis Index 10
--- NOTE | 2021-01-17 16:36 | Progress Note ---
Assessment and Plan Acute hypoxemic respiratory failure Acute asthma exacerbation Community acquired pneumonia DM II History of congestive heart failure GERD History of arthritis Metabolic acidosis at presentation Leukocytosis at presentation Elevated serum transaminases - supplemental oxygen for target O2 sat's > 90% acutely - aspiratrion precautions - prn bronchodilators with pulmonary hygiene per RT - continue to avoid nephrotoxins, renally dose all medications - mobility protocols to prevent pressure ulcers - PT/OT as tolerated - Wound care per RN/WCT - accuchecks with glycemic control per SSI for target blood glucose < 180 mg/dL - tobacco abstinence counseled at bedside - home oxygen evaluation at discharge - prn analgesia per pain score - GI & VTE prophylaxis - Flu & pneumovax per protocol - Pulmonary out patient follow up for PFTs and optimization of respiratory status - continue other care per attending / other consultants .... Re-evaluate in am & prn Subjective Date of service: 01/17/21 Principal diagnosis: Acute hypoxemic respiratory failure; AE-Asthma; CAP; DM II; CHF Interval history: Patient is seen today for: Acute hypoxemic respiratory failure; AE-Asthma; CAP; DM II; CHF Seen and examined at bedside; 24hour events reviewed; nursing and respiratory care staff consulted; no adverse overnight events reported to me; resting in bed; doing well post extubation; denies acute chest pains or palpitations; COVID-19 PCR pending Objective Vital Signs - 12hr 01/17/21 01/17/21 01/17/21 04:41 04:51 05:01 Pulse Rate Pulse Rate [ Anterior Bilateral Throughout] Respiratory Rate Respiratory Rate [Anterior Bilateral Throughout] Blood Pressure 174/87 151/84 151/84 O2 Sat by Pulse 94 94 94 Oximetry 01/17/21 01/17/21 01/17/21 05:11 05:21 05:31 Pulse Rate Pulse Rate [ Anterior Bilateral Throughout] Respiratory Rate Respiratory Rate [Anterior Bilateral Throughout] Blood Pressure 151/84 151/84 151/84 O2 Sat by Pulse 93 94 93 Oximetry 01/17/21 01/17/21 01/17/21 05:41 05:51 06:01 Pulse Rate Pulse Rate [ Anterior Bilateral Throughout] Respiratory Rate Respiratory Rate [Anterior Bilateral Throughout] Blood Pressure 151/84 165/91 165/91 O2 Sat by Pulse 96 98 97 Oximetry 01/17/21 01/17/21 01/17/21 06:11 06:21 06:31 Pulse Rate Pulse Rate [ Anterior Bilateral Throughout] Respiratory Rate Respiratory Rate [Anterior Bilateral Throughout] Blood Pressure 165/91 165/91 165/91 O2 Sat by Pulse 98 94 100 Oximetry 01/17/21 01/17/21 01/17/21 06:41 06:50 07:01 Pulse Rate Pulse Rate [ Anterior Bilateral Throughout] Respiratory Rate Respiratory Rate [Anterior Bilateral Throughout] Blood Pressure 165/91 165/88 165/88 O2 Sat by Pulse 100 95 100 Oximetry 01/17/21 01/17/21 01/17/21 07:11 07:21 07:31 Pulse Rate Pulse Rate [ Anterior Bilateral Throughout] Respiratory Rate Respiratory Rate [Anterior Bilateral Throughout] Blood Pressure 165/88 165/88 165/88 O2 Sat by Pulse 100 100 99 Oximetry 01/17/21 01/17/21 01/17/21 07:41 07:50 08:00 Pulse Rate Pulse Rate [ 95 H Anterior Bilateral Throughout] Respiratory Rate Respiratory 16 Rate [Anterior Bilateral Throughout] Blood Pressure 165/88 170/89 O2 Sat by Pulse 100 94 Oximetry 01/17/21 01/17/21 01/17/21 08:01 08:11 08:21 Pulse Rate Pulse Rate [ Anterior Bilateral Throughout] Respiratory Rate Respiratory Rate [Anterior Bilateral Throughout] Blood Pressure 170/89 170/89 165/88 O2 Sat by Pulse 99 99 99 Oximetry 01/17/21 01/17/21 01/17/21 08:31 08:41 08:50 Pulse Rate Pulse Rate [ Anterior Bilateral Throughout] Respiratory Rate Respiratory Rate [Anterior Bilateral Throughout] Blood Pressure 165/88 165/88 169/86 O2 Sat by Pulse 98 98 93 Oximetry 01/17/21 01/17/21 01/17/21 09:01 09:11 09:21 Pulse Rate Pulse Rate [ Anterior Bilateral Throughout] Respiratory 18 13 Rate Respiratory Rate [Anterior Bilateral Throughout] Blood Pressure 169/86 169/86 169/86 O2 Sat by Pulse 98 97 98 Oximetry 01/17/21 01/17/21 01/17/21 09:31 09:41 09:50 Pulse Rate Pulse Rate [ Anterior Bilateral Throughout] Respiratory 17 Rate Respiratory Rate [Anterior Bilateral Throughout] Blood Pressure 169/86 169/86 169/86 O2 Sat by Pulse 98 95 94 Oximetry 01/17/21 01/17/21 01/17/21 10:00 11:05 11:11 Pulse Rate 87 71 77 Pulse Rate [ Anterior Bilateral Throughout] Respiratory 14 12 Rate Respiratory Rate [Anterior Bilateral Throughout] Blood Pressure 167/98 O2 Sat by Pulse 100 100 Oximetry 01/17/21 01/17/21 01/17/21 11:21 11:31 11:41 Pulse Rate 68 64 64 Pulse Rate [ Anterior Bilateral Throughout] Respiratory 8 L 10 L 9 L Rate Respiratory Rate [Anterior Bilateral Throughout] Blood Pressure 167/98 167/98 O2 Sat by Pulse 100 100 100 Oximetry 01/17/21 01/17/21 11:51 13:34 Pulse Rate 67 Pulse Rate [ 93 H Anterior Bilateral Throughout] Respiratory 14 Rate Respiratory 16 Rate [Anterior Bilateral Throughout] Blood Pressure 167/98 O2 Sat by Pulse 100 Oximetry Constitutional: no acute distress, alert, other (middle aged obese female with mildly increased respiratory effort at rest) Eyes: non-icteric ENT: oropharynx moist Neck: supple, no lymphadenopathy, no JVD Effort: mildly labored Ascultation: Bilateral: diminished breath sounds, rhonchi (scant) Percussion: Bilateral: not dull Cardiovascular: regular rate and rhythm Gastrointestinal: normoactive bowel sounds, soft, non-tender, non-distended Integumentary: normal Extremities: no cyanosis, no edema, pulses normal, no ischemia or petechiae Neurologic: normal mental status, non-focal exam (grossly), pupils equal and round, motor strength normal and Psychiatric: anxious CBC and BMP: 01/17/21 04:13 01/17/21 15:04 ABG, PT/INR, D-dimer: ABG ABG pH 7.312 (7.320-7.450) L 01/16/21 06:06 POC ABG pCO2 46.2 mmHg (32.0-48.0) 01/16/21 06:06 ABG pCO2 38.6 mm Hg 01/15/21 01:39 POC ABG pO2 105.3 mmHg (83-108) 01/16/21 06:06 ABG pO2 211.1 mm Hg (80.0-90.0) H 01/15/21 01:39 POC ABG HCO3 22.8 01/16/21 06:06 ABG O2 Saturation 98.0 (0-100) 01/16/21 06:06 PT/INR, D-dimer PT 19.2 Sec. (12.2-14.9) H 01/16/21 00:50 INR 1.57 (0.87-1.13) H 01/16/21 00:50 Abnormal lab findings: Abnormal Labs 01/14/21 01/14/21 01/14/21 19:54 19:54 19:54 WBC 15.8 H RBC Lymph % (Auto) Lymph # (Auto) Seg Neutrophils % Seg Neuts % (Manual) 38.0 L Lymphocytes % (Manual) 54.0 H Lymphocytes # (Manual) 8.5 H PT 19.5 H INR 1.60 H ABG pH ABG pO2 ABG O2 Saturation ABG Hemoglobin ABG Potassium ABG Chloride ABG Glucose Carboxyhemoglobin Sodium 136 L Chloride Carbon Dioxide 19 L BUN Creatinine Glucose 300 H POC Glucose Lactic Acid Calcium 8.1 L AST 289 H ALT 190 H Alkaline Phosphatase 161 H Total Protein Albumin 3.8 L Arterial Blood Glucose Ur Specific [place] Salicylates Acetaminophen 01/14/21 01/14/21 01/14/21 19:54 19:54 19:54 WBC RBC Lymph % (Auto) Lymph # (Auto) Seg Neutrophils % Seg Neuts % (Manual) Lymphocytes % (Manual) Lymphocytes # (Manual) PT INR ABG pH ABG pO2 ABG O2 Saturation ABG Hemoglobin ABG Potassium ABG Chloride ABG Glucose Carboxyhemoglobin Sodium Chloride Carbon Dioxide BUN Creatinine Glucose POC Glucose Lactic Acid 5.10 H* Calcium AST ALT Alkaline Phosphatase Total Protein Albumin Arterial Blood Glucose Ur Specific [place] Salicylates < 0.3 L Acetaminophen 5.9 L 01/14/21 01/14/21 01/15/21 21:20 23:42 01:39 WBC RBC Lymph % (Auto) Lymph # (Auto) Seg Neutrophils % Seg Neuts % (Manual) Lymphocytes % (Manual) Lymphocytes # (Manual) PT INR ABG pH ABG pO2 211.1 H ABG O2 Saturation 99.3 H ABG Hemoglobin 10.9 L ABG Potassium ABG Chloride ABG Glucose Carboxyhemoglobin Sodium Chloride Carbon Dioxide BUN Creatinine Glucose POC Glucose Lactic Acid 3.20 H* Calcium AST ALT Alkaline Phosphatase Total Protein Albumin Arterial Blood Glucose Ur Specific [place] 1.035 H Salicylates Acetaminophen 01/15/21 01/15/21 01/15/21 04:26 04:26 04:26 WBC RBC Lymph % (Auto) 7.8 L Lymph # (Auto) 0.6 L Seg Neutrophils % 88.1 H Seg Neuts % (Manual) Lymphocytes % (Manual) Lymphocytes # (Manual) PT 19.6 H INR 1.61 H ABG pH ABG pO2 ABG O2 Saturation ABG Hemoglobin ABG Potassium ABG Chloride ABG Glucose Carboxyhemoglobin Sodium Chloride 111.1 H Carbon Dioxide BUN Creatinine Glucose 168 H POC Glucose Lactic Acid Calcium 7.8 L AST ALT Alkaline Phosphatase Total Protein Albumin Arterial Blood Glucose Ur Specific [place] Salicylates Acetaminophen 01/15/21 01/15/21 01/15/21 04:26 07:41 17:56 WBC RBC Lymph % (Auto) Lymph # (Auto) Seg Neutrophils % Seg Neuts % (Manual) Lymphocytes % (Manual) Lymphocytes # (Manual) PT INR ABG pH ABG pO2 ABG O2 Saturation ABG Hemoglobin ABG Potassium ABG Chloride ABG Glucose Carboxyhemoglobin Sodium Chloride Carbon Dioxide BUN Creatinine Glucose POC Glucose 157 H 150 H Lactic Acid 2.20 H* Calcium AST ALT Alkaline Phosphatase Total Protein Albumin Arterial Blood Glucose Ur Specific [place] Salicylates Acetaminophen 01/16/21 01/16/21 01/16/21 00:10 00:50 00:50 WBC 13.6 H RBC 3.53 L Lymph % (Auto) Lymph # (Auto) Seg Neutrophils % Seg Neuts % (Manual) Lymphocytes % (Manual) Lymphocytes # (Manual) PT 19.2 H INR 1.57 H ABG pH ABG pO2 ABG O2 Saturation ABG Hemoglobin ABG Potassium ABG Chloride ABG Glucose Carboxyhemoglobin Sodium Chloride Carbon Dioxide BUN Creatinine Glucose POC Glucose 133 H Lactic Acid Calcium AST ALT Alkaline Phosphatase Total Protein Albumin Arterial Blood Glucose Ur Specific [place] Salicylates Acetaminophen 01/16/21 01/16/21 01/16/21 00:50 03:06 06:06 WBC RBC Lymph % (Auto) Lymph # (Auto) Seg Neutrophils % Seg Neuts % (Manual) Lymphocytes % (Manual) Lymphocytes # (Manual) PT INR ABG pH 7.312 L ABG pO2 ABG O2 Saturation ABG Hemoglobin ABG Potassium 4.6 H ABG Chloride 110.0 H ABG Glucose 126 H Carboxyhemoglobin 0.1 L Sodium Chloride Carbon Dioxide BUN Creatinine 1.3 H D Glucose POC Glucose Lactic Acid Calcium AST 46 H ALT 129 H Alkaline Phosphatase Total Protein 5.9 L Albumin 3.5 L Arterial Blood Glucose 126 H Ur Specific [place] Salicylates Acetaminophen 01/16/21 01/16/21 01/17/21 06:39 23:44 09:10 WBC RBC Lymph % (Auto) Lymph # (Auto) Seg Neutrophils % Seg Neuts % (Manual) Lymphocytes % (Manual) Lymphocytes # (Manual) PT INR ABG pH ABG pO2 ABG O2 Saturation ABG Hemoglobin ABG Potassium ABG Chloride ABG Glucose Carboxyhemoglobin Sodium Chloride Carbon Dioxide BUN Creatinine Glucose POC Glucose 123 H 114 H 133 H Lactic Acid Calcium AST ALT Alkaline Phosphatase Total Protein Albumin Arterial Blood Glucose Ur Specific [place] Salicylates Acetaminophen 01/17/21 15:04 WBC RBC Lymph % (Auto) Lymph # (Auto) Seg Neutrophils % Seg Neuts % (Manual) Lymphocytes % (Manual) Lymphocytes # (Manual) PT INR ABG pH ABG pO2 ABG O2 Saturation ABG Hemoglobin ABG Potassium ABG Chloride ABG Glucose Carboxyhemoglobin Sodium Chloride Carbon Dioxide BUN 19 H Creatinine Glucose POC Glucose Lactic Acid Calcium AST ALT Alkaline Phosphatase Total Protein Albumin Arterial Blood Glucose Ur Specific [place] Salicylates Acetaminophen Allied health notes reviewed: nursing
[2021-01-17] MEDS: BUDESONIDE 0.5 MG/2 ML NEBU IH SCH (20:36)
[2021-01-17] MEDS: ARFORMOTEROL 15 MCG/2 ML NEBU IH SCH (20:36)
--- NOTE | 2021-01-18 03:46 | XRay Report ---
CHEST 1 VIEW INDICATION / CLINICAL INFORMATION: follow up respiratory failure. FINDINGS: SUPPORT DEVICES: None. HEART / MEDIASTINUM: No significant abnormality. LUNGS / PLEURA: Small pleural-parenchymal opacity within the left lower lung unchanged from yesterday 's exam. No new findings. Signer Name: Josiah Du MD Signed: 01/18/2021 3:41 AM Workstation Name: [id number]
[2021-01-18] MEDS: methylPREDNISolone Sod Succinate 40 MG/1 ML INJ IV SCH ×2 (05:22→17:10)
[2021-01-18] MEDS: IPRATROPIUM/ALBUTEROL SULFATE 3 ML AMPUL.NEB IH SCH ×3 (07:53→20:36)
[2021-01-18] MEDS: ARFORMOTEROL 15 MCG/2 ML NEBU IH SCH ×2 (07:53→20:36)
[2021-01-18] MEDS: BUDESONIDE 0.5 MG/2 ML NEBU IH SCH ×2 (07:54→20:36)
[2021-01-18] MEDS: SENNOSIDES/DOCUSATE SODIUM 8.6/50 MG TAB FEEDTUBE SCH ×2 (11:05→22:25)
[2021-01-18] MEDS: FAMOTIDINE 20 MG TAB PO SCH ×2 (11:05→22:25)
[2021-01-18] MEDS: APIXABAN 5 MG TAB PO SCH ×2 (11:05→22:25)
[2021-01-18] MEDS: INSULIN LISPRO 100 UNIT/ML SUB-Q SCH ×5 (11:06→22:25)
--- NOTE | 2021-01-18 12:55 | Progress Note ---
Assessment and Plan 55-year-old female with known history of CHF, asthma brought into the emergency room via EMS today for asthma exacerbation. Patient was said to be unresponsive and had a can of breathing with pinpoint pupils upon arrival of the EMS. Init ial oxygen saturation was in the 50s. Patient was given some Narcan with improvement in her responsiveness. However she became agitated and stating she cannot breathe. She got some nebulizing treatments with some improvement in her oxygen saturation. Upon arrival in the emergency room patient was still having labored breathing despite the nebulizing treatments. She was subsequently intubated in the emergency room. Patient has been intubated on multiple occasions in the past. Chart review from previous visit indicates patient has been vaccinated against COVID-19. Work up in the ER, significant findings were lactic acid of 5.10, WBC of 15.8 Chest x-ray reveals: 1. Lines and tubes in satisfactory position. 2. Asymmetric vascular congestion/edema versus developing pneumonia. Patient also has History of Diabetes, GERD Patient was seen in the IMCU. Patient alert and awake resting in 2L O2 and saturating 100%. However, patient still complaining of SOB. Patient afebrile. No leukocytosis. BP 152/89 HR 85. Chest X-Ray done 01/18/21 Reported: Small pleural-parenchymal opacity within the left lower lung unchanged from yesterday's exam. No new findings. Patient presently on: - Brovana/Budesonide q12 hr, Albuterol atrovent aerosol treatment q6hr for SOB, IV Solu-Medrol, Levaquin, Famotodine, and Apixaban I have seen the patient in IMCU and I spent critical care time of 35 minutes reviewing the chart, obtaining the history, examining the patient, reviewing chest x-ray and lab results, talking to the nursing staff and respiratory therapy, and work-up plan of treatment in this critically ill patient with acute exacerbation of asthma and respiratory failure. - Patient Problems (1) Acute respiratory failure with hypoxia Current Visit: Yes Status: Acute Plan to address problem: On 2L O2. Continue IV Solu-Medrol. Continue Albuterol and Atorvent treatments. Continue Apixaban Continue Pepcid (2) Asthma exacerbation Current Visit: Yes Status: Acute Plan to address problem: On 2L O2. Continue IV Solu-Medrol Continue Albuterol and Atorvent treatments Continue Apixaban Continue Pepcid Continue Levoquin PFTs as an outpaitient (3) Diabetes 1.5, managed as type 2 Current Visit: No Status: Acute Plan to address problem: Management as per primary care. (4) GERD (gastroesophageal reflux disease) Current Visit: No Status: Chronic Qualifiers: Esophagitis presence: without esophagitis Qualified Code(s): K21.9 - Gastro-esophageal reflux disease without esophagitis Plan to address problem: Patient is on Pepcid (5) HTN (hypertension) Current Visit: No Status: Chronic Qualifiers: Hypertension type: unspecified Qualified Code(s): I10 - Essential (primary) hypertension Plan to address problem: Management as per primary care. Subjective Date of service: 01/18/21 Principal diagnosis: Acute hypoxemic respiratory failure; AE-Asthma; CAP; DM II; CHF Interval history: 55-year-old female with known history of CHF, asthma brought into the emergency room via EMS today for asthma exacerbation. Patient was said to be unresponsive and had a can of breathing with pinpoint pupils upon arrival of the EMS. Initial oxygen saturation was in the 50s. Patient was given some Narcan with improvement in her responsiveness. However she became agitated and stating she cannot breathe. She got some nebulizing treatments with some improvement in her oxygen saturation. Upon arrival in the emergency room patient was still having labored breathing despite the nebulizing treatments. She was subsequently intubated in the emergency room. Patient has been intubated on multiple occasions in the past. Chart review from previous visit indicates patient has been vaccinated against COVID-19. Work up in the ER, significant findings were lactic acid of 5.10, WBC of 15.8 Chest x-ray reveals: 1. Lines and tubes in satisfactory position. 2. Asymmetric vascular congestion/edema versus developing pneumonia. Patient also has History of Diabetes, GERD Patient was seen in the IMCU. Patient alert and awake resting in 2L O2 and saturating 100%. However, patient still complaining of SOB. Patient afebrile. No leukocytosis. BP 152/89 HR 85. Chest X-Ray done 01/18/21 Reported: Small pleural-parenchymal opacity within the left lower lung unchanged from yesterday's exam. No new findings. Patient presently on: - Brovana/Budesonide q12 hr, Albuterol atrovent aerosol treatment q6hr for SOB, IV Solu-Medrol, Levaquin, Famotodine, and Apixaban Objective Vital Signs - 12hr 01/18/21 01/18/21 01/18/21 01:01 02:00 03:00 Temperature Pulse Rate 67 64 71 Pulse Rate [ Anterior Bilateral Throughout] Pulse Rate [ From Monitor] Respiratory 14 15 18 Rate Respiratory Rate [Anterior Bilateral Throughout] Blood Pressure 159/95 158/90 158/90 O2 Sat by Pulse 97 97 98 Oximetry 01/18/21 01/18/21 01/18/21 04:00 05:00 06:00 Temperature 99.2 F Pulse Rate 67 69 65 Pulse Rate [ Anterior Bilateral Throughout] Pulse Rate [ 65 From Monitor] Respiratory 14 13 14 Rate Respiratory Rate [Anterior Bilateral Throughout] Blood Pressure 147/91 149/86 144/85 O2 Sat by Pulse 96 96 96 Oximetry 01/18/21 01/18/21 01/18/21 07:01 07:54 08:00 Temperature 98.2 F Pulse Rate 60 Pulse Rate [ 77 Anterior Bilateral Throughout] Pulse Rate [ From Monitor] Respiratory 15 Rate Respiratory 18 Rate [Anterior Bilateral Throughout] Blood Pressure 156/91 O2 Sat by Pulse 96 99 Oximetry 01/18/21 01/18/21 01/18/21 08:01 09:00 10:00 Temperature Pulse Rate 64 77 78 Pulse Rate [ Anterior Bilateral Throughout] Pulse Rate [ From Monitor] Respiratory 14 17 18 Rate Respiratory Rate [Anterior Bilateral Throughout] Blood Pressure 151/95 123/77 136/85 O2 Sat by Pulse 98 99 96 Oximetry 01/18/21 01/18/21 11:01 12:00 Temperature 97.8 F Pulse Rate 73 83 Pulse Rate [ Anterior Bilateral Throughout] Pulse Rate [ From Monitor] Respiratory 13 20 Rate Respiratory Rate [Anterior Bilateral Throughout] Blood Pressure 160/92 152/89 O2 Sat by Pulse 97 98 Oximetry Constitutional: no acute distress, alert, other (middle aged obese female with mildly increased respiratory effort at rest) Eyes: non-icteric ENT: oropharynx moist Neck: supple, no lymphadenopathy, no JVD Effort: mildly labored Ascultation: Bilateral: diminished breath sounds, rhonchi (scant) Percussion: Bilateral: not dull Cardiovascular: regular rate and rhythm Gastrointestinal: normoactive bowel sounds, soft, non-tender, non-distended Integumentary: normal Extremities: no cyanosis, no edema, pulses normal, no ischemia or petechiae Neurologic: normal mental status, non-focal exam (grossly), pupils equal and round, motor strength normal and Psychiatric: anxious CBC and BMP: 01/17/21 04:13 01/18/21 04:07 ABG, PT/INR, D-dimer: ABG ABG pH 7.312 (7.320-7.450) L 01/16/21 06:06 POC ABG pCO2 46.2 mmHg (32.0-48.0) 01/16/21 06:06 ABG pCO2 38.6 mm Hg 01/15/21 01:39 POC ABG pO2 105.3 mmHg (83-108) 01/16/21 06:06 ABG pO2 211.1 mm Hg (80.0-90.0) H 01/15/21 01:39 POC ABG HCO3 22.8 01/16/21 06:06 ABG O2 Saturation 98.0 (0-100) 01/16/21 06:06 PT/INR, D-dimer PT 19.2 Sec. (12.2-14.9) H 01/16/21 00:50 INR 1.57 (0.87-1.13) H 01/16/21 00:50 Abnormal lab findings: Abnormal Labs 01/14/21 01/14/21 01/14/21 19:54 19:54 19:54 WBC 15.8 H RBC Lymph % (Auto) Lymph # (Auto) Seg Neutrophils % Seg Neuts % (Manual) 38.0 L Lymphocytes % (Manual) 54.0 H Lymphocytes # (Manual) 8.5 H PT 19.5 H INR 1.60 H ABG pH ABG pO2 ABG O2 Saturation ABG Hemoglobin ABG Potassium ABG Chloride ABG Glucose Carboxyhemoglobin Sodium 136 L Chloride Carbon Dioxide 19 L BUN Creatinine Glucose 300 H POC Glucose Lactic Acid Calcium 8.1 L AST 289 H ALT 190 H Alkaline Phosphatase 161 H Total Protein Albumin 3.8 L Arterial Blood Glucose Ur Specific [place] Salicylates Acetaminophen 01/14/21 01/14/21 01/14/21 19:54 19:54 19:54 WBC RBC Lymph % (Auto) Lymph # (Auto) Seg Neutrophils % Seg Neuts % (Manual) Lymphocytes % (Manual) Lymphocytes # (Manual) PT INR ABG pH ABG pO2 ABG O2 Saturation ABG Hemoglobin ABG Potassium ABG Chloride ABG Glucose Carboxyhemoglobin Sodium Chloride Carbon Dioxide BUN Creatinine Glucose POC Glucose Lactic Acid 5.10 H* Calcium AST ALT Alkaline Phosphatase Total Protein Albumin Arterial Blood Glucose Ur Specific [place] Salicylates < 0.3 L Acetaminophen 5.9 L 01/14/21 01/14/21 01/15/21 21:20 23:42 01:39 WBC RBC Lymph % (Auto) Lymph # (Auto) Seg Neutrophils % Seg Neuts % (Manual) Lymphocytes % (Manual) Lymphocytes # (Manual) PT INR ABG pH ABG pO2 211.1 H ABG O2 Saturation 99.3 H ABG Hemoglobin 10.9 L ABG Potassium ABG Chloride ABG Glucose Carboxyhemoglobin Sodium Chloride Carbon Dioxide BUN Creatinine Glucose POC Glucose Lactic Acid 3.20 H* Calcium AST ALT Alkaline Phosphatase Total Protein Albumin Arterial Blood Glucose Ur Specific [place] 1.035 H Salicylates Acetaminophen 01/15/21 01/15/21 01/15/21 04:26 04:26 04:26 WBC RBC Lymph % (Auto) 7.8 L Lymph # (Auto) 0.6 L Seg Neutrophils % 88.1 H Seg Neuts % (Manual) Lymphocytes % (Manual) Lymphocytes # (Manual) PT 19.6 H INR 1.61 H ABG pH ABG pO2 ABG O2 Saturation ABG Hemoglobin ABG Potassium ABG Chloride ABG Glucose Carboxyhemoglobin Sodium Chloride 111.1 H Carbon Dioxide BUN Creatinine Glucose 168 H POC Glucose Lactic Acid Calcium 7.8 L AST ALT Alkaline Phosphatase Total Protein Albumin Arterial Blood Glucose Ur Specific [place] Salicylates Acetaminophen 01/15/21 01/15/21 01/15/21 04:26 07:41 17:56 WBC RBC Lymph % (Auto) Lymph # (Auto) Seg Neutrophils % Seg Neuts % (Manual) Lymphocytes % (Manual) Lymphocytes # (Manual) PT INR ABG pH ABG pO2 ABG O2 Saturation ABG Hemoglobin ABG Potassium ABG Chloride ABG Glucose Carboxyhemoglobin Sodium Chloride Carbon Dioxide BUN Creatinine Glucose POC Glucose 157 H 150 H Lactic Acid 2.20 H* Calcium AST ALT Alkaline Phosphatase Total Protein Albumin Arterial Blood Glucose Ur Specific [place] Salicylates Acetaminophen 01/16/21 01/16/21 01/16/21 00:10 00:50 00:50 WBC 13.6 H RBC 3.53 L Lymph % (Auto) Lymph # (Auto) Seg Neutrophils % Seg Neuts % (Manual) Lymphocytes % (Manual) Lymphocytes # (Manual) PT 19.2 H INR 1.57 H ABG pH ABG pO2 ABG O2 Saturation ABG Hemoglobin ABG Potassium ABG Chloride ABG Glucose Carboxyhemoglobin Sodium Chloride Carbon Dioxide BUN Creatinine Glucose POC Glucose 133 H Lactic Acid Calcium AST ALT Alkaline Phosphatase Total Protein Albumin Arterial Blood Glucose Ur Specific [place] Salicylates Acetaminophen 01/16/21 01/16/21 01/16/21 00:50 03:06 06:06 WBC RBC Lymph % (Auto) Lymph # (Auto) Seg Neutrophils % Seg Neuts % (Manual) Lymphocytes % (Manual) Lymphocytes # (Manual) PT INR ABG pH 7.312 L ABG pO2 ABG O2 Saturation ABG Hemoglobin ABG Potassium 4.6 H ABG Chloride 110.0 H ABG Glucose 126 H Carboxyhemoglobin 0.1 L Sodium Chloride Carbon Dioxide BUN Creatinine 1.3 H D Glucose POC Glucose Lactic Acid Calcium AST 46 H ALT 129 H Alkaline Phosphatase Total Protein 5.9 L Albumin 3.5 L Arterial Blood Glucose 126 H Ur Specific [place] Salicylates Acetaminophen 01/16/21 01/16/21 01/17/21 06:39 23:44 09:10 WBC RBC Lymph % (Auto) Lymph # (Auto) Seg Neutrophils % Seg Neuts % (Manual) Lymphocytes % (Manual) Lymphocytes # (Manual) PT INR ABG pH ABG pO2 ABG O2 Saturation ABG Hemoglobin ABG Potassium ABG Chloride ABG Glucose Carboxyhemoglobin Sodium Chloride Carbon Dioxide BUN Creatinine Glucose POC Glucose 123 H 114 H 133 H Lactic Acid Calcium AST ALT Alkaline Phosphatase Total Protein Albumin Arterial Blood Glucose Ur Specific [place] Salicylates Acetaminophen 01/17/21 01/17/21 01/17/21 15:04 17:15 22:37 WBC RBC Lymph % (Auto) Lymph # (Auto) Seg Neutrophils % Seg Neuts % (Manual) Lymphocytes % (Manual) Lymphocytes # (Manual) PT INR ABG pH ABG pO2 ABG O2 Saturation ABG Hemoglobin ABG Potassium ABG Chloride ABG Glucose Carboxyhemoglobin Sodium Chloride Carbon Dioxide BUN 19 H Creatinine Glucose POC Glucose 137 H 157 H Lactic Acid Calcium AST ALT Alkaline Phosphatase Total Protein Albumin Arterial Blood Glucose Ur Specific [place] Salicylates Acetaminophen 01/18/21 11:20 WBC RBC Lymph % (Auto) Lymph # (Auto) Seg Neutrophils % Seg Neuts % (Manual) Lymphocytes % (Manual) Lymphocytes # (Manual) PT INR ABG pH ABG pO2 ABG O2 Saturation ABG Hemoglobin ABG Potassium ABG Chloride ABG Glucose Carboxyhemoglobin Sodium Chloride Carbon Dioxide BUN Creatinine Glucose POC Glucose 143 H Lactic Acid Calcium AST ALT Alkaline Phosphatase Total Protein Albumin Arterial Blood Glucose Ur Specific [place] Salicylates Acetaminophen Chest x-ray: report reviewed, image reviewed Additional Studies: CHEST 1 VIEW 01/18/21 INDICATION / CLINICAL INFORMATION: follow up respiratory failure. FINDINGS: SUPPORT DEVICES: None. HEART / MEDIASTINUM: No significant abnormality. LUNGS / PLEURA: Small pleural-parenchymal opacity within the left lower lung unchanged from yesterday's exam. No new findings. Allied health notes reviewed: nursing
--- NOTE | 2021-01-18 14:40 | Progress Note ---
Assessment and Plan Assessment and plan: #Acute hypoxic respiratory failure -extubated 01/16 -nasal cannula at 2 L/min; will titrate down -Home O2 evaluation -continue steroids, bronchodilators -Pulmonology following, recs appreciated #Acute asthma exacerbation -Resolving -patient with extensive history and visits for asthma exacerbation -has been intubated multiple times #Pneumonia -procalcitonin 0.5 -sputum culture with few GPCs -MRSA culture ordered -Covid PCR negative -currently on levaquin, will continue #Lactic acidosis -resolved #Elevated liver enzymes -AST/ALT down trending #Hx Congestive heart failure -BNP 192 -CXR with vascular congestion -not in acute exacerbation -TTE 01/15/2021: EF 55-60% #Hypertension -will restart Lopressor 25 mg twice daily #History of diabetes -SSI for now #History of atrial fibrillation -continue Eliquis & metoprolol #Discharge planning -Home oxygen eval needed -Physical therapy eval #CODE STATUS -Full code Disposition Plan: Continue medical care Total Time Spent with Patient (Minutes): 20 minutes History Interval history: No acute events overnight. Stable on nasal cannula. Reports chills denies other complaints. Hospitalist Physical - Physical exam Narrative exam: GENERAL: Well-developed well-nourished. No acute distress HEENT: Nasal cannula at 5 L/min CHEST/LUNGS: CTAB on room air HEART/CARDIOVASCULAR: RRR. No murmur, rubs or gallops appreciated. ABDOMEN: +BS. NT/ND. NEURO: No focal deficits noted EXTREMITIES: No cyanosis, clubbing or edema. PSYCH: AAOx3. Cooperative. - Constitutional Vitals: Temp Pulse Resp BP Pulse Ox 97.8 F 85 20 152/89 98 01/18/21 12:00 01/18/21 13:32 01/18/21 13:32 01/18/21 12:00 01/18/21 12:00 General appearance: Present: no acute distress, well-nourished, other (Intubated and Sedated) - Allied Health Allied health notes reviewed: nursing HEART Score - HEART Score Troponin: Troponin T < 0.010 ng/mL (0.00-0.029) 01/14/21 19:54 Results - Labs CBC & Chem 7: 01/17/21 04:13 01/18/21 04:07 Labs: Laboratory Last Values WBC 8.3 K/mm3 (4.5-11.0) 01/17/21 04:13 RBC 3.73 M/mm3 (3.65-5.03) 01/17/21 04:13 Hgb 11.2 gm/dl (10.1-14.3) 01/17/21 04:13 Hct 32.6 % (30.3-42.9) 01/17/21 04:13 MCV 88 fl (79-97) 01/17/21 04:13 MCH 30 pg (28-32) 01/17/21 04:13 MCHC 34 % (30-34) 01/17/21 04:13 RDW 14.0 % (13.2-15.2) 01/17/21 04:13 Plt Count 209 K/mm3 (140-440) 01/17/21 04:13 Lymph % (Auto) 7.8 % (13.4-35.0) L 01/15/21 04:26 [place] % (Auto) 4.0 % (0.0-7.3) 01/15/21 04:26 Eos % (Auto) 0.0 % (0.0-4.3) 01/15/21 04:26 Baso % (Auto) 0.1 % (0.0-1.8) 01/15/21 04:26 Lymph # (Auto) 0.6 K/mm3 (1.2-5.4) L 01/15/21 04:26 [place] # (Auto) 0.3 K/mm3 (0.0-0.8) 01/15/21 04:26 Eos # (Auto) 0.0 K/mm3 (0.0-0.4) 01/15/21 04:26 Baso # (Auto) 0.0 K/mm3 (0.0-0.1) 01/15/21 04:26 Add Manual Diff Complete 01/14/21 19:54 Total Counted 100 01/14/21 19:54 Seg Neutrophils % 88.1 % (40.0-70.0) H 01/15/21 04:26 Seg Neuts % (Manual) 38.0 % (40.0-70.0) L 01/14/21 19:54 Band Neutrophils % 5.0 % 01/14/21 19:54 Lymphocytes % (Manual) 54.0 % (13.4-35.0) H 01/14/21 19:54 Monocytes % (Manual) 1.0 % (0.0-7.3) 01/14/21 19:54 Eosinophils % (Manual) 1.0 % (0.0-4.3) 01/14/21 19:54 Metamyelocytes % 1.0 % 01/14/21 19:54 Nucleated RBC % Not Reportable 01/14/21 19:54 Seg Neutrophils # 6.7 K/mm3 (1.8-7.7) 01/15/21 04:26 Seg Neutrophils # Man 6.0 K/mm3 (1.8-7.7) 01/14/21 19:54 Band Neutrophils # 0.8 K/mm3 01/14/21 19:54 Lymphocytes # (Manual) 8.5 K/mm3 (1.2-5.4) H 01/14/21 19:54 Abs React Lymphs (Man) 0.0 K/mm3 01/14/21 19:54 Monocytes # (Manual) 0.2 K/mm3 (0.0-0.8) 01/14/21 19:54 Eosinophils # (Manual) 0.2 K/mm3 (0.0-0.4) 01/14/21 19:54 Basophils # (Manual) 0.0 K/mm3 (0.0-0.1) 01/14/21 19:54 Metamyelocytes # 0.2 K/mm3 01/14/21 19:54 Myelocytes # 0.0 K/mm3 01/14/21 19:54 Promyelocytes # 0.0 K/mm3 01/14/21 19:54 Blast Cells # 0.0 K/mm3 01/14/21 19:54 WBC Morphology Not Reportable 01/14/21 19:54 Hypersegmented Neuts Not Reportable 01/14/21 19:54 Hyposegmented Neuts Not Reportable 01/14/21 19:54 Hypogranular Neuts Not Reportable 01/14/21 19:54 Smudge Cells Not Reportable 01/14/21 19:54 Toxic Granulation Not Reportable 01/14/21 19:54 Toxic Vacuolation Not Reportable 01/14/21 19:54 Dohle Bodies Not Reportable 01/14/21 19:54 Pelger-Huet Anomaly Not Reportable 01/14/21 19:54 Giuseppe Rods Not Reportable 01/14/21 19:54 Platelet Estimate Consistent w auto 01/14/21 19:54 Clumped Platelets Not Reportable 01/14/21 19:54 Plt Clumps, EDTA Not Reportable 01/14/21 19:54 Large Platelets Not Reportable 01/14/21 19:54 Giant Platelets Not Reportable 01/14/21 19:54 Platelet Satelliting Not Reportable 01/14/21 19:54 Plt Morphology Comment Not Reportable 01/14/21 19:54 RBC Morphology Not Reportable 01/14/21 19:54 Dimorphic RBCs Not Reportable 01/14/21 19:54 Polychromasia Not Reportable 01/14/21 19:54 Hypochromasia Not Reportable 01/14/21 19:54 Poikilocytosis 2+ 01/14/21 19:54 Anisocytosis 1+ 01/14/21 19:54 Microcytosis Not Reportable 01/14/21 19:54 Macrocytosis Not Reportable 01/14/21 19:54 Spherocytes Not Reportable 01/14/21 19:54 Pappenheimer Bodies Not Reportable 01/14/21 19:54 Sickle Cells Not Reportable 01/14/21 19:54 Target Cells Not Reportable 01/14/21 19:54 Tear Drop Cells Not Reportable 01/14/21 19:54 Ovalocytes Few 01/14/21 19:54 Helmet Cells Not Reportable 01/14/21 19:54 [place] Bodies Not Reportable 01/14/21 19:54 [place] Rings Not Reportable 01/14/21 19:54 Arvin Cells 1+ 01/14/21 19:54 Bite Cells Not Reportable 01/14/21 19:54 Crenated Cell Not Reportable 01/14/21 19:54 Elliptocytes Few 01/14/21 19:54 Acanthocytes (Spur) Not Reportable 01/14/21 19:54 Rouleaux Not Reportable 01/14/21 19:54 Hemoglobin C Crystals Not Reportable 01/14/21 19:54 Schistocytes Not Reportable 01/14/21 19:54 Malaria parasites Not Reportable 01/14/21 19:54 Alfonso Bodies Not Reportable 01/14/21 19:54 Hem Pathologist Commnt No 01/14/21 19:54 PT 19.2 Sec. (12.2-14.9) H 01/16/21 00:50 INR 1.57 (0.87-1.13) H 01/16/21 00:50 APTT 29.2 Sec. (24.2-36.6) 01/16/21 00:50 ABG pH 7.312 (7.320-7.450) L 01/16/21 06:06 POC ABG pCO2 46.2 mmHg (32.0-48.0) 01/16/21 06:06 ABG pCO2 38.6 mm Hg 01/15/21 01:39 POC ABG pO2 105.3 mmHg (83-108) 01/16/21 06:06 ABG pO2 211.1 mm Hg (80.0-90.0) H 01/15/21 01:39 POC ABG HCO3 22.8 01/16/21 06:06 ABG HCO3 24.5 mmol/L (20.0-26.0) 01/15/21 01:39 ABG O2 Saturation 98.0 (0-100) 01/16/21 06:06 ABG O2 Content 15.5 (0.0-44) 01/15/21 01:39 POC ABG Base Excess -3.4 01/16/21 06:06 ABG Base Excess 0.2 mmol/L (-2.0-3.0) 01/15/21 01:39 ABG Hemoglobin 12.0 (12.0-17.5) 01/16/21 06:06 ABG Oxyhemoglobin 97.6 (94-98) 01/16/21 06:06 ABG Carboxyhemoglobin 1.1 % (0.0-5.0) 01/15/21 01:39 ABG Methemoglobin 0.3 (0.0-1.5) 01/16/21 06:06 ABG Sodium 141.8 mmol/L (136.0-145.0) 01/16/21 06:06 ABG Potassium 4.6 mmol/L (3.40-4.50) H 01/16/21 06:06 ABG Chloride 110.0 mmol/L (98-107) H 01/16/21 06:06 ABG Glucose 126 mg/dL (65-95) H 01/16/21 06:06 Oxyhemoglobin 97.7 % (95.0-99.0) 01/15/21 01:39 Carboxyhemoglobin 0.1 (0.5-1.5) L 01/16/21 06:06 FiO2 50 % 01/15/21 01:39 FiO2 % 30.0 01/16/21 06:06 Sodium 141 mmol/L (137-145) 01/17/21 15:04 Potassium 3.9 mmol/L (3.6-5.0) 01/17/21 15:04 Chloride 104.9 mmol/L (98-107) 01/17/21 15:04 Carbon Dioxide 26 mmol/L (22-30) 01/17/21 15:04 Anion Gap 14 mmol/L 01/17/21 15:04 BUN 19 mg/dL (7-17) H 01/17/21 15:04 Creatinine 0.8 mg/dL (0.6-1.2) 01/18/21 04:07 Estimated GFR > 60 ml/min 01/18/21 04:07 BUN/Creatinine Ratio 24 % 01/17/21 15:04 Glucose 96 mg/dL (65-100) 01/17/21 15:04 POC Glucose 143 mg/dL (70-105) H 01/18/21 11:20 Lactic Acid 2.00 mmol/L (0.7-2.0) 01/15/21 08:44 Calcium 8.7 mg/dL (8.4-10.2) 01/17/21 15:04 Total Bilirubin < 0.20 mg/dL (0.1-1.2) 01/16/21 03:06 Direct Bilirubin < 0.2 mg/dL (0-0.2) 01/16/21 03:06 Indirect Bilirubin 0.0 mg/dL 01/16/21 03:06 AST 46 units/L (5-40) H 01/16/21 03:06 ALT 129 units/L (7-56) H 01/16/21 03:06 Alkaline Phosphatase 118 units/L (35-129) 01/16/21 03:06 Troponin T < 0.010 ng/mL (0.00-0.029) 01/14/21 19:54 C-Reactive Protein 0.50 mg/dL (0.00-1.30) 01/16/21 00:50 NT-Pro-B Natriuret Pep 192.9 pg/mL (0-900) 01/14/21 19:54 Total Protein 5.9 g/dL (6.3-8.2) L 01/16/21 03:06 Albumin 3.5 g/dL (3.9-5) L 01/16/21 03:06 Albumin/Globulin Ratio 1.5 % 01/16/21 03:06 Triglycerides 58 mg/dL (2-149) 01/16/21 02:13 Procalcitonin 0.58 ng/mL (<0.15) 01/16/21 00:50 Arterial Blood Glucose 126 mg/dL (65-95) H 01/16/21 06:06 Urine Color Straw (Yellow) 01/14/21 21:20 Urine Turbidity Hazy (Clear) 01/14/21 21:20 Urine pH 5.0 (5.0-7.0) 01/14/21 21:20 Ur Specific [place] 1.035 (1.003-1.030) H 01/14/21 21:20 Urine Protein >500 mg/dL (Negative) 01/14/21 21:20 Urine Glucose (UA) 500 mg/dL (Negative) 01/14/21 21:20 Urine Ketones Negative mg/dL (Negative) 01/14/21 21:20 Urine Blood Negative (Negative) 01/14/21 21:20 Urine Nitrite Negative (Negative) 01/14/21 21:20 Ur Reducing Substances Not Reportable 01/14/21 21:20 Urine Bilirubin Negative (Negative) 01/14/21 21:20 Urine Ictotest Not Reportable 01/14/21 21:20 Urine Urobilinogen < 2.0 mg/dL (<2.0) 01/14/21 21:20 Ur Leukocyte Esterase Negative (Negative) 01/14/21 21:20 Urine WBC (Auto) 5.0 /HPF (0.0-6.0) 01/14/21 21:20 Urine RBC (Auto) 3.0 /HPF (0.0-6.0) 01/14/21 21:20 U Epithel Cells (Auto) 5.0 /HPF (0-13.0) 01/14/21 21:20 Hyaline Casts 28 /LPF 01/14/21 21:20 Urine Mucus Few /HPF 01/14/21 21:20 Salicylates < 0.3 mg/dL (2.8-20.0) L 01/14/21 19:54 Urine Opiates Screen Negative 01/14/21 21:20 Urine Methadone Screen Negative 01/14/21 21:20 Acetaminophen 5.9 ug/mL (10.0-30.0) L 01/14/21 19:54 Ur Barbiturates Screen Negative 01/14/21 21:20 Ur Phencyclidine Scrn Negative 01/14/21 21:20 Ur Amphetamines Screen Negative 01/14/21 21:20 U Benzodiazepines Scrn Negative 01/14/21 21:20 Urine Cocaine Screen Negative 01/14/21 21:20 U Marijuana (THC) Screen Negative 01/14/21 21:20 Drugs of Abuse Note Disclamer 01/14/21 21:20 Plasma/Serum Alcohol < 0.01 % (0-0.07) 01/14/21 19:54 Coronavirus (PCR) Negative (Negative) 01/17/21 Unknown Microbiology: Microbiology 01/15/21 Unknown Sputum - Endotracheal Wash Sputum Culture - Preliminary 01/14/21 19:54 Peripheral/Venous Blood Culture - Preliminary NO GROWTH AFTER 72 HOURS 01/14/21 20:03 Peripheral/Venous Blood Culture - Preliminary NO GROWTH AFTER 72 HOURS Calderon/IV: Voiding Method Bedpan Active Medications - Current Medications Current Medications: Generic Name Dose Route Start Last Admin Trade Name Freq PRN Reason Stop Dose Admin Acetaminophen 650 mg 01/14/21 22:21 Acetaminophen 325 Mg Tab PO Q6H PRN Pain MILD(1-3)/Fever >100.5/ANTONIO Albuterol/Ipratropium 1 ampul 01/15/21 20:00 01/18/21 13:32 Ipratropium/Albuterol Sulfate 3 Ml Ampul.Neb IH 1 ampul TIDRT REANNA Administration Apixaban 5 mg 01/15/21 22:00 01/18/21 11:05 Apixaban 5 Mg Tab PO 5 mg Q12HR REANNA Administration Protocol Arformoterol Tartrate 15 mcg 01/17/21 20:00 01/18/21 07:53 Arformoterol 15 Mcg/2 Ml Nebu IH 15 mcg Q12HRT REANNA Administration Budesonide 0.5 mg 01/17/21 20:00 01/18/21 07:54 Budesonide 0.5 Mg/2 Ml Nebu IH 0.5 mg Q12HRT REANNA Administration Dextrose 50 ml 01/15/21 15:27 Dextrose 50% In Water (25gm) 50 Ml Syringe IV Q30MIN PRN Hypoglycemia Protocol Famotidine 20 mg 01/18/21 10:00 01/18/21 11:05 Famotidine 20 Mg Tab PO 20 mg BID REANNA Administration Hydrophilic Ointment 1 applic 01/15/21 14:07 Lip Therapy Vaseline TP Q2HR PRN Dry Lips Levofloxacin/Dextrose 750 mg in 150 mls @ 100 mls/hr 01/14/21 23:00 01/17/21 22:15 Levaquin 750mg/150ml IV 100 mls/hr Q24H REANNA Administration Protocol Insulin Human Lispro 0 unit 01/17/21 11:30 01/18/21 11:06 Insulin Lispro 100 Unit/Ml SUB-Q Not Given ACHS [facility] Protocol Magnesium Hydroxide 30 ml 01/14/21 22:21 Magnesium Hydroxide (Mom) Oral Liqd Udc PO Q4H PRN Constipation Methylprednisolone Sodium Succinate 40 mg 01/15/21 06:00 01/18/21 05:22 Methylprednisolone Sod Succinate 40 Mg/1 Ml Inj IV 40 mg Q8HR REANNA Administration Morphine Sulfate 2 mg 01/14/21 22:21 Morphine 2 Mg/1 Ml Inj IV Q4H PRN Pain, Moderate (4-6) Morphine Sulfate 4 mg 01/14/21 22:21 01/16/21 04:45 Morphine 4 Mg/1 Ml Inj IV 4 mg Q4H PRN Administration Pain , Severe (7-10) Multi-Ingred Cream/Lotion/Oil/Oint 1 applic 01/15/21 14:07 Mineral Oil/Petrolatum, White Ophth Oint 3.5 Gm OU Q4HR PRN Dry Eye(s) Ondansetron HCl 4 mg 01/14/21 22:21 Ondansetron 4 Mg/2 Ml Inj IV Q8H PRN Nausea And Vomiting Senna/Docusate Sodium 1 tab 01/15/21 22:00 01/18/21 11:05 Sennosides/Docusate Sodium 8.6/50 Mg Tab FEEDTUBE 1 tab BID REANNA Administration Sodium Chloride 10 ml 01/15/21 10:00 01/18/21 11:06 Sodium Chloride 0.9% 10 Ml Flush Syringe IV 10 ml BID REANNA Administration Sodium Chloride 10 ml 01/14/21 22:21 Sodium Chloride 0.9% 10 Ml Flush Syringe IV PRN PRN LINE FLUSH Nutrition/Malnutrition Assess - Dietary Evaluation Nutrition/Malnutrition Findings: Nutrition Notes Start: 01/15/21 13:56 Freq: Status: Active Protocol: Document 01/15/21 13:56 GB (Rec: 01/15/21 14:16 GB [id number]) Nutrition Notes Need for Assessment generated from: MD Order Initial or Follow up Assessment Current Diagnosis COPD,Heart Failure Other Pertinent Diagnosis SOB Current Diet NPO Labs/Tests 01/15: glucose 168, Ca 7.8 Pertinent Medications fentanyl Citrate, Levofloxacin /Dextrose, prpofol 2.585ml/hr (68kcal), NaCl Height 5 ft 4 in Weight 78.018 kg [place] Body Weight (kg) 54.54 BMI 29.5 Weight change and time frame admit weight Weight Status Overweight Subjective/Other Information Pt has been admitted in the past Currently intubated and sedated Percent of energy/protein needs met: 0% Burn Absent Trauma Absent GI Symptoms None Food Allergy Yes Current % PO Other Minimum of two criteria No #2 Nutrition Diagnosis Inadequate energy intake Comments: intubated and sedated Etiology CHF, SOB As Evidenced by Signs and Symptoms Intubated and sedated #1 Nutrition Diagnosis Food and nutrition-related knowledge deficit Comments: consult for nutrition education - pt intubated and sedated, pt known to hospital, education not a appropriate at this time Etiology CHF As Evidenced by Signs and Symptoms Consult for nutrition therapy education Is patient on ventilator? Yes Is Patient Ambulatory and/or Out of Bed No REE-([facility]-confined to bed) 1624.752 Kcal/Kg value to use for calculation 20 Approximate Energy Requirements Using 1560 kcal/Kg Calculation Used for Recommendations Kcal/kg Additional Notes Protein: 1-1.2 g/kg @ 78k -94g Fluids: 1 ml/kcal or per MD Nutrition Intervention Change Diet Order: Advance to Cardiac when medically feasible Nutrition Support: Vital AF 1.2 goal rate 50ml/hr Flush 25ml/hr Kcal 1,440 Protein (gm) 90 Fat (gm) 65 Fluid (mL) 973 Education Handouts Provided If patient admitted to floor, CHF education packet to be reviewed and provided. Goal #1 Extubation and diet advanced to Cardiac. Goal #2 Tolerate TF Vital AF 1.2 at goal rate of 50ml/hr Follow-Up By: 01/19/21 Additional Comments f/u: TF goal 60ml/hr, diet advanced, vent status, provide chf nutrition edu
[2021-01-19 06:17] LABS: Hematocrit 34.5 % (30.3-42.9); Hemoglobin 11.7 gm/dl (10.1-14.3); Mean Corpuscular HGB Conc 34 % (30-34); Mean Corpuscular Volume 86 fl (79-97); Platelet Count 202 K/mm3 (140-440); Red Blood Count 4.01 M/mm3 (3.65-5.03); Red Cell Distribution Width 14.2 % (13.2-15.2)
[2021-01-19 06:30] LABS: BUN/Creatinine Ratio 24; Blood Urea Nitrogen 19 mg/dL (7-17); Calcium 8.4 mg/dL (8.4-10.2); Hemolysis Index 15
[2021-01-19] MEDS: IPRATROPIUM/ALBUTEROL SULFATE 3 ML AMPUL.NEB IH SCH ×3 (09:04→21:18)
[2021-01-19] MEDS: ARFORMOTEROL 15 MCG/2 ML NEBU IH SCH ×2 (09:04→21:17)
[2021-01-19] MEDS: BUDESONIDE 0.5 MG/2 ML NEBU IH SCH ×2 (09:04→21:18)
[2021-01-19] MEDS ORDERED: methylPREDNISolone Sod Succinate 40 MG/1 ML INJ IV SCH (10:00)
[2021-01-19] MEDS: INSULIN LISPRO 100 UNIT/ML SUB-Q SCH ×4 (10:30→22:12)
[2021-01-19] MEDS: APIXABAN 5 MG TAB PO SCH ×2 (10:42→22:09)
[2021-01-19] MEDS: FAMOTIDINE 20 MG TAB PO SCH ×2 (10:42→22:09)
--- NOTE | 2021-01-19 10:59 | Electrocardiograph Report ---
[facility] Test Date: 2021-01-15 Test Time: 21:22:09 Pat Name: EDIE RENDON Department: Room: A461 Gender: F Sql Report Developer: DEMI : [id number] Requested By: KATRIN FARMER Order Number: [id number] Reading MD: Niles Stokes Measurements Intervals [place] Rate: 100 P: -6 CT: 179 QRS: 39 QRSD: 84 T: 20 QT: 362 QTc: 467 Interpretive Statements Sinus tachycardia Baseline artifact, otherwise no acute changes Compared to ECG 10/27/2020 20:37:20 No significant change Electronically Signed On 01-19-2021 10:59:01 EDT by Niles Stokes
--- NOTE | 2021-01-19 12:06 | Progress Note ---
Assessment and Plan 55-year-old female with known history of CHF, asthma brought into the emergency room via EMS today for asthma exacerbation. Patient was said to be unresponsive and had a can of breathing with pinpoint pupils upon arrival of the EMS. Init ial oxygen saturation was in the 50s. Patient was given some Narcan with improvement in her responsiveness. However she became agitated and stating she cannot breathe. She got some nebulizing treatments with some improvement in her oxygen saturation. Upon arrival in the emergency room patient was still having labored breathing despite the nebulizing treatments. She was subsequently intubated in the emergency room. Patient has been intubated on multiple occasions in the past. Chart review from previous visit indicates patient has been vaccinated against COVID-19. Work up in the ER, significant findings were lactic acid of 5.10, WBC of 15.8 Chest x-ray reveals: 1. Lines and tubes in satisfactory position. 2. Asymmetric vascular congestion/edema versus developing pneumonia. Patient also has History of Diabetes, GERD Patient was seen in the IMCU. Patient alert and awake resting in 2L O2 and saturating 100%. However, patient still complaining of SOB. Patient afebrile. No leukocytosis. BP 152/89 HR 85. Chest X-Ray done 01/18/21 Reported: Small pleural-parenchymal opacity within the left lower lung unchanged from yesterday's exam. No new findings. Patient presently on: - Brovana/Budesonide q12 hr, Albuterol atrovent aerosol treatment q6hr for SOB, IV Solu-Medrol, Levaquin, Famotodine, and Apixaban I have seen the patient in IMCU and I spent critical care time of 35 minutes reviewing the chart, obtaining the history, examining the patient, reviewing chest x-ray and lab results, talking to the nursing staff and respiratory therapy, and work-up plan of treatment in this critically ill patient with acute exacerbation of asthma and respiratory failure. - Patient Problems (1) Acute respiratory failure with hypoxia Current Visit: Yes Status: Acute Plan to address problem: On 2L O2. Continue IV Solu-Medrol. Continue Albuterol and Atorvent treatments. Continue Apixaban Continue Pepcid (2) Asthma exacerbation Current Visit: Yes Status: Acute Plan to address problem: On 2L O2. Continue IV Solu-Medrol Continue Albuterol and Atorvent treatments Continue Apixaban Continue Pepcid Continue Levoquin PFTs as an outpaitient (3) Diabetes 1.5, managed as type 2 Current Visit: No Status: Acute Plan to address problem: Management as per primary care. (4) GERD (gastroesophageal reflux disease) Current Visit: No Status: Chronic Qualifiers: Esophagitis presence: without esophagitis Qualified Code(s): K21.9 - Gastro-esophageal reflux disease without esophagitis Plan to address problem: Patient is on Pepcid (5) HTN (hypertension) Current Visit: No Status: Chronic Qualifiers: Hypertension type: unspecified Qualified Code(s): I10 - Essential (primary) hypertension Plan to address problem: Management as per primary care. Subjective Date of service: 01/19/21 Principal diagnosis: Acute hypoxemic respiratory failure; AE-Asthma; CAP; DM II; CHF Interval history: 55-year-old female with known history of CHF, asthma brought into the emergency room via EMS today for asthma exacerbation. Patient was said to be unresponsive and had a can of breathing with pinpoint pupils upon arrival of the EMS. Initial oxygen saturation was in the 50s. Patient was given some Narcan with improvement in her responsiveness. However she became agitated and stating she cannot breathe. She got some nebulizing treatments with some improvement in her oxygen saturation. Upon arrival in the emergency room patient was still having labored breathing despite the nebulizing treatments. She was subsequently intubated in the emergency room. Patient has been intubated on multiple occasions in the past. Chart review from previous visit indicates patient has been vaccinated against COVID-19. Work up in the ER, significant findings were lactic acid of 5.10, WBC of 15.8 Chest x-ray reveals: 1. Lines and tubes in satisfactory position. 2. Asymmetric vascular congestion/edema versus developing pneumonia. Patient also has History of Diabetes, GERD Patient was seen in the IMCU. Patient alert and awake resting in 2L O2 and saturating 100%. However, patient still complaining of SOB. Patient afebrile. No leukocytosis. BP 152/89 HR 85. Chest X-Ray done 01/18/21 Reported: Small pleural-parenchymal opacity within the left lower lung unchanged from yesterday's exam. No new findings. Patient presently on: - Brovana/Budesonide q12 hr, Albuterol atrovent aerosol treatment q6hr for SOB, IV Solu-Medrol, Levaquin, Famotodine, and Apixaban Objective Vital Signs - 12hr 01/19/21 01/19/21 01/19/21 03:01 09:07 09:34 Temperature 98.2 F 98.7 F Pulse Rate 65 78 Pulse Rate [ 82 Anterior Bilateral Throughout] Respiratory 16 20 Rate Respiratory 18 Rate [Anterior Bilateral Throughout] Blood Pressure 143/88 124/86 O2 Sat by Pulse 97 97 Oximetry Constitutional: no acute distress, alert, other (middle aged obese female with mildly increased respiratory effort at rest) Eyes: non-icteric ENT: oropharynx moist Neck: supple, no lymphadenopathy, no JVD Effort: mildly labored Ascultation: Bilateral: diminished breath sounds, rhonchi (scant) Percussion: Bilateral: not dull Cardiovascular: regular rate and rhythm Gastrointestinal: normoactive bowel sounds, soft, non-tender, non-distended Integumentary: normal Extremities: no cyanosis, no edema, pulses normal, no ischemia or petechiae Neurologic: normal mental status, non-focal exam (grossly), pupils equal and round, motor strength normal and Psychiatric: anxious CBC and BMP: 01/19/21 04:42 01/19/21 04:42 ABG, PT/INR, D-dimer: ABG ABG pH 7.312 (7.320-7.450) L 01/16/21 06:06 POC ABG pCO2 46.2 mmHg (32.0-48.0) 01/16/21 06:06 ABG pCO2 38.6 mm Hg 01/15/21 01:39 POC ABG pO2 105.3 mmHg (83-108) 01/16/21 06:06 ABG pO2 211.1 mm Hg (80.0-90.0) H 01/15/21 01:39 POC ABG HCO3 22.8 01/16/21 06:06 ABG O2 Saturation 98.0 (0-100) 01/16/21 06:06 PT/INR, D-dimer PT 19.2 Sec. (12.2-14.9) H 01/16/21 00:50 INR 1.57 (0.87-1.13) H 01/16/21 00:50 Abnormal lab findings: Abnormal Labs 01/14/21 01/14/21 01/14/21 19:54 19:54 19:54 WBC 15.8 H RBC Lymph % (Auto) Lymph # (Auto) Seg Neutrophils % Seg Neuts % (Manual) 38.0 L Lymphocytes % (Manual) 54.0 H Lymphocytes # (Manual) 8.5 H PT 19.5 H INR 1.60 H ABG pH ABG pO2 ABG O2 Saturation ABG Hemoglobin ABG Potassium ABG Chloride ABG Glucose Carboxyhemoglobin Sodium 136 L Potassium Chloride Carbon Dioxide 19 L BUN Creatinine Glucose 300 H POC Glucose Lactic Acid Calcium 8.1 L AST 289 H ALT 190 H Alkaline Phosphatase 161 H Total Protein Albumin 3.8 L Arterial Blood Glucose Ur Specific [place] Salicylates Acetaminophen 01/14/21 01/14/21 01/14/21 19:54 19:54 19:54 WBC RBC Lymph % (Auto) Lymph # (Auto) Seg Neutrophils % Seg Neuts % (Manual) Lymphocytes % (Manual) Lymphocytes # (Manual) PT INR ABG pH ABG pO2 ABG O2 Saturation ABG Hemoglobin ABG Potassium ABG Chloride ABG Glucose Carboxyhemoglobin Sodium Potassium Chloride Carbon Dioxide BUN Creatinine Glucose POC Glucose Lactic Acid 5.10 H* Calcium AST ALT Alkaline Phosphatase Total Protein Albumin Arterial Blood Glucose Ur Specific [place] Salicylates < 0.3 L Acetaminophen 5.9 L 01/14/21 01/14/21 01/15/21 21:20 23:42 01:39 WBC RBC Lymph % (Auto) Lymph # (Auto) Seg Neutrophils % Seg Neuts % (Manual) Lymphocytes % (Manual) Lymphocytes # (Manual) PT INR ABG pH ABG pO2 211.1 H ABG O2 Saturation 99.3 H ABG Hemoglobin 10.9 L ABG Potassium ABG Chloride ABG Glucose Carboxyhemoglobin Sodium Potassium Chloride Carbon Dioxide BUN Creatinine Glucose POC Glucose Lactic Acid 3.20 H* Calcium AST ALT Alkaline Phosphatase Total Protein Albumin Arterial Blood Glucose Ur Specific [place] 1.035 H Salicylates Acetaminophen 01/15/21 01/15/21 01/15/21 04:26 04:26 04:26 WBC RBC Lymph % (Auto) 7.8 L Lymph # (Auto) 0.6 L Seg Neutrophils % 88.1 H Seg Neuts % (Manual) Lymphocytes % (Manual) Lymphocytes # (Manual) PT 19.6 H INR 1.61 H ABG pH ABG pO2 ABG O2 Saturation ABG Hemoglobin ABG Potassium ABG Chloride ABG Glucose Carboxyhemoglobin Sodium Potassium Chloride 111.1 H Carbon Dioxide BUN Creatinine Glucose 168 H POC Glucose Lactic Acid Calcium 7.8 L AST ALT Alkaline Phosphatase Total Protein Albumin Arterial Blood Glucose Ur Specific [place] Salicylates Acetaminophen 01/15/21 01/15/21 01/15/21 04:26 07:41 11:33 WBC RBC Lymph % (Auto) Lymph # (Auto) Seg Neutrophils % Seg Neuts % (Manual) Lymphocytes % (Manual) Lymphocytes # (Manual) PT INR ABG pH ABG pO2 ABG O2 Saturation ABG Hemoglobin ABG Potassium ABG Chloride ABG Glucose Carboxyhemoglobin Sodium Potassium Chloride Carbon Dioxide BUN Creatinine Glucose POC Glucose 157 H 133 H Lactic Acid 2.20 H* Calcium AST ALT Alkaline Phosphatase Total Protein Albumin Arterial Blood Glucose Ur Specific [place] Salicylates Acetaminophen 01/15/21 01/16/21 01/16/21 17:56 00:10 00:50 WBC 13.6 H RBC 3.53 L Lymph % (Auto) Lymph # (Auto) Seg Neutrophils % Seg Neuts % (Manual) Lymphocytes % (Manual) Lymphocytes # (Manual) PT INR ABG pH ABG pO2 ABG O2 Saturation ABG Hemoglobin ABG Potassium ABG Chloride ABG Glucose Carboxyhemoglobin Sodium Potassium Chloride Carbon Dioxide BUN Creatinine Glucose POC Glucose 150 H 133 H Lactic Acid Calcium AST ALT Alkaline Phosphatase Total Protein Albumin Arterial Blood Glucose Ur Specific [place] Salicylates Acetaminophen 01/16/21 01/16/21 01/16/21 00:50 00:50 03:06 WBC RBC Lymph % (Auto) Lymph # (Auto) Seg Neutrophils % Seg Neuts % (Manual) Lymphocytes % (Manual) Lymphocytes # (Manual) PT 19.2 H INR 1.57 H ABG pH ABG pO2 ABG O2 Saturation ABG Hemoglobin ABG Potassium ABG Chloride ABG Glucose Carboxyhemoglobin Sodium Potassium Chloride Carbon Dioxide BUN Creatinine 1.3 H D Glucose POC Glucose Lactic Acid Calcium AST 46 H ALT 129 H Alkaline Phosphatase Total Protein 5.9 L Albumin 3.5 L Arterial Blood Glucose Ur Specific [place] Salicylates Acetaminophen 01/16/21 01/16/21 01/16/21 06:06 06:39 23:44 WBC RBC Lymph % (Auto) Lymph # (Auto) Seg Neutrophils % Seg Neuts % (Manual) Lymphocytes % (Manual) Lymphocytes # (Manual) PT INR ABG pH 7.312 L ABG pO2 ABG O2 Saturation ABG Hemoglobin ABG Potassium 4.6 H ABG Chloride 110.0 H ABG Glucose 126 H Carboxyhemoglobin 0.1 L Sodium Potassium Chloride Carbon Dioxide BUN Creatinine Glucose POC Glucose 123 H 114 H Lactic Acid Calcium AST ALT Alkaline Phosphatase Total Protein Albumin Arterial Blood Glucose 126 H Ur Specific [place] Salicylates Acetaminophen 01/17/21 01/17/21 01/17/21 09:10 15:04 17:15 WBC RBC Lymph % (Auto) Lymph # (Auto) Seg Neutrophils % Seg Neuts % (Manual) Lymphocytes % (Manual) Lymphocytes # (Manual) PT INR ABG pH ABG pO2 ABG O2 Saturation ABG Hemoglobin ABG Potassium ABG Chloride ABG Glucose Carboxyhemoglobin Sodium Potassium Chloride Carbon Dioxide BUN 19 H Creatinine Glucose POC Glucose 133 H 137 H Lactic Acid Calcium AST ALT Alkaline Phosphatase Total Protein Albumin Arterial Blood Glucose Ur Specific [place] Salicylates Acetaminophen 01/17/21 01/18/21 01/18/21 22:37 11:20 21:52 WBC RBC Lymph % (Auto) Lymph # (Auto) Seg Neutrophils % Seg Neuts % (Manual) Lymphocytes % (Manual) Lymphocytes # (Manual) PT INR ABG pH ABG pO2 ABG O2 Saturation ABG Hemoglobin ABG Potassium ABG Chloride ABG Glucose Carboxyhemoglobin Sodium Potassium Chloride Carbon Dioxide BUN Creatinine Glucose POC Glucose 157 H 143 H 129 H Lactic Acid Calcium AST ALT Alkaline Phosphatase Total Protein Albumin Arterial Blood Glucose Ur Specific [place] Salicylates Acetaminophen 01/19/21 04:42 WBC RBC Lymph % (Auto) Lymph # (Auto) Seg Neutrophils % Seg Neuts % (Manual) Lymphocytes % (Manual) Lymphocytes # (Manual) PT INR ABG pH ABG pO2 ABG O2 Saturation ABG Hemoglobin ABG Potassium ABG Chloride ABG Glucose Carboxyhemoglobin Sodium Potassium 3.5 L Chloride Carbon Dioxide BUN 19 H Creatinine Glucose POC Glucose Lactic Acid Calcium AST ALT Alkaline Phosphatase Total Protein Albumin Arterial Blood Glucose Ur Specific [place] Salicylates Acetaminophen Chest x-ray: report reviewed, image reviewed Additional Studies: CHEST 1 VIEW 01/18/21 INDICATION / CLINICAL INFORMATION: follow up respiratory failure. FINDINGS: SUPPORT DEVICES: None. HEART / MEDIASTINUM: No significant abnormality. LUNGS / PLEURA: Small pleural-parenchymal opacity within the left lower lung unchanged from yesterday's exam. No new findings. Allied health notes reviewed: nursing
--- NOTE | 2021-01-19 15:04 | Progress Note ---
Assessment and Plan Assessment and plan: #Acute hypoxic respiratory failure -extubated 01/16 -nasal cannula at 2 L/min; will titrate down -Home O2 evaluation -continue steroids, bronchodilators -Pulmonology following, recs appreciated #Acute asthma exacerbation-resolved -patient with extensive history and visits for asthma exacerbation -has been intubated multiple times #Pneumonia -procalcitonin 0.5 -sputum culture with few GPCs -MRSA culture ordered -Covid PCR negative -currently on levaquin, will continue #Lactic acidosis -resolved #Elevated liver enzymes -AST/ALT down trending #Hx Congestive heart failure -BNP 192 -CXR with vascular congestion -not in acute exacerbation -TTE 01/15/2021: EF 55-60% #Hypertension -Continue Lopressor 25 mg twice daily #History of diabetes -SSI for now #History of atrial fibrillation -continue Eliquis & metoprolol #Discharge planning -Home oxygen eval needed -Discharging on 01/20/2021 with home PT and rolling walker Disposition Plan: Home with home PT Total Time Spent with Patient (Minutes): 45 History Interval history: No acute events over night. The patient denies fevers, chills, nausea, vomiting, abdominal pain, chest pain/pressure, shortness of breath, urinary symptoms, weakness, or confusion. Hospitalist Physical - Constitutional Vitals: Temp Pulse Resp BP Pulse Ox 98.7 F 78 14 129/76 97 01/19/21 11:34 01/19/21 10:00 01/19/21 11:34 01/19/21 11:34 01/19/21 10:00 General appearance: Present: no acute distress, well-nourished, other (Intubated and Sedated) - EENT Eyes: Present: PERRL, EOM intact ENT: clear oral mucosa, dentition normal, other (Hard of hearing) - Neck Neck: Present: supple, normal ROM - Respiratory Respiratory effort: normal - Cardiovascular Rhythm: regular Heart Sounds: Present: S1 & S2 - Extremities Extremities: no ischemia, pulses intact, pulses symmetrical, No edema, normal t emperature, normal color Peripheral Pulses: within normal limits - Abdominal General gastrointestinal: soft, non-tender, non-distended, normal bowel sounds - Integumentary Integumentary: Present: clear, warm, dry - Psychiatric Psychiatric: appropriate mood/affect, intact judgment & insight, memory intact, cooperative - Neurologic Neurologic: CNII-XII intact, moves all extremities - Allied Health Allied health notes reviewed: nursing HEART Score - HEART Score Troponin: Troponin T < 0.010 ng/mL (0.00-0.029) 01/14/21 19:54 Results - Labs CBC & Chem 7: 01/19/21 04:42 01/19/21 04:42 Labs: Laboratory Last Values WBC 7.7 K/mm3 (4.5-11.0) 01/19/21 04:42 RBC 4.01 M/mm3 (3.65-5.03) 01/19/21 04:42 Hgb 11.7 gm/dl (10.1-14.3) 01/19/21 04:42 Hct 34.5 % (30.3-42.9) 01/19/21 04:42 MCV 86 fl (79-97) 01/19/21 04:42 MCH 29 pg (28-32) 01/19/21 04:42 MCHC 34 % (30-34) 01/19/21 04:42 RDW 14.2 % (13.2-15.2) 01/19/21 04:42 Plt Count 202 K/mm3 (140-440) 01/19/21 04:42 Lymph % (Auto) 7.8 % (13.4-35.0) L 01/15/21 04:26 Moody % (Auto) 4.0 % (0.0-7.3) 01/15/21 04:26 Eos % (Auto) 0.0 % (0.0-4.3) 01/15/21 04:26 Baso % (Auto) 0.1 % (0.0-1.8) 01/15/21 04:26 Lymph # (Auto) 0.6 K/mm3 (1.2-5.4) L 01/15/21 04:26 Moody # (Auto) 0.3 K/mm3 (0.0-0.8) 01/15/21 04:26 Eos # (Auto) 0.0 K/mm3 (0.0-0.4) 01/15/21 04:26 Baso # (Auto) 0.0 K/mm3 (0.0-0.1) 01/15/21 04:26 Add Manual Diff Complete 01/14/21 19:54 Total Counted 100 01/14/21 19:54 Seg Neutrophils % 88.1 % (40.0-70.0) H 01/15/21 04:26 Seg Neuts % (Manual) 38.0 % (40.0-70.0) L 01/14/21 19:54 Band Neutrophils % 5.0 % 01/14/21 19:54 Lymphocytes % (Manual) 54.0 % (13.4-35.0) H 01/14/21 19:54 Monocytes % (Manual) 1.0 % (0.0-7.3) 01/14/21 19:54 Eosinophils % (Manual) 1.0 % (0.0-4.3) 01/14/21 19:54 Metamyelocytes % 1.0 % 01/14/21 19:54 Nucleated RBC % Not Reportable 01/14/21 19:54 Seg Neutrophils # 6.7 K/mm3 (1.8-7.7) 01/15/21 04:26 Seg Neutrophils # Man 6.0 K/mm3 (1.8-7.7) 01/14/21 19:54 Band Neutrophils # 0.8 K/mm3 01/14/21 19:54 Lymphocytes # (Manual) 8.5 K/mm3 (1.2-5.4) H 01/14/21 19:54 Abs React Lymphs (Man) 0.0 K/mm3 01/14/21 19:54 Monocytes # (Manual) 0.2 K/mm3 (0.0-0.8) 01/14/21 19:54 Eosinophils # (Manual) 0.2 K/mm3 (0.0-0.4) 01/14/21 19:54 Basophils # (Manual) 0.0 K/mm3 (0.0-0.1) 01/14/21 19:54 Metamyelocytes # 0.2 K/mm3 01/14/21 19:54 Myelocytes # 0.0 K/mm3 01/14/21 19:54 Promyelocytes # 0.0 K/mm3 01/14/21 19:54 Blast Cells # 0.0 K/mm3 01/14/21 19:54 WBC Morphology Not Reportable 01/14/21 19:54 Hypersegmented Neuts Not Reportable 01/14/21 19:54 Hyposegmented Neuts Not Reportable 01/14/21 19:54 Hypogranular Neuts Not Reportable 01/14/21 19:54 Smudge Cells Not Reportable 01/14/21 19:54 Toxic Granulation Not Reportable 01/14/21 19:54 Toxic Vacuolation Not Reportable 01/14/21 19:54 Dohle Bodies Not Reportable 01/14/21 19:54 Pelger-Huet Anomaly Not Reportable 01/14/21 19:54 Giuseppe Rods Not Reportable 01/14/21 19:54 Platelet Estimate Consistent w auto 01/14/21 19:54 Clumped Platelets Not Reportable 01/14/21 19:54 Plt Clumps, EDTA Not Reportable 01/14/21 19:54 Large Platelets Not Reportable 01/14/21 19:54 Giant Platelets Not Reportable 01/14/21 19:54 Platelet Satelliting Not Reportable 01/14/21 19:54 Plt Morphology Comment Not Reportable 01/14/21 19:54 RBC Morphology Not Reportable 01/14/21 19:54 Dimorphic RBCs Not Reportable 01/14/21 19:54 Polychromasia Not Reportable 01/14/21 19:54 Hypochromasia Not Reportable 01/14/21 19:54 Poikilocytosis 2+ 01/14/21 19:54 Anisocytosis 1+ 01/14/21 19:54 Microcytosis Not Reportable 01/14/21 19:54 Macrocytosis Not Reportable 01/14/21 19:54 Spherocytes Not Reportable 01/14/21 19:54 Pappenheimer Bodies Not Reportable 01/14/21 19:54 Sickle Cells Not Reportable 01/14/21 19:54 Target Cells Not Reportable 01/14/21 19:54 Tear Drop Cells Not Reportable 01/14/21 19:54 Ovalocytes Few 01/14/21 19:54 Helmet Cells Not Reportable 01/14/21 19:54 [place] Bodies Not Reportable 01/14/21 19:54 [place] Rings Not Reportable 01/14/21 19:54 Arvin Cells 1+ 01/14/21 19:54 Bite Cells Not Reportable 01/14/21 19:54 Crenated Cell Not Reportable 01/14/21 19:54 Elliptocytes Few 01/14/21 19:54 Acanthocytes (Spur) Not Reportable 01/14/21 19:54 Rouleaux Not Reportable 01/14/21 19:54 Hemoglobin C Crystals Not Reportable 01/14/21 19:54 Schistocytes Not Reportable 01/14/21 19:54 Malaria parasites Not Reportable 01/14/21 19:54 Alfonso Bodies Not Reportable 01/14/21 19:54 Hem Pathologist Commnt No 01/14/21 19:54 PT 19.2 Sec. (12.2-14.9) H 01/16/21 00:50 INR 1.57 (0.87-1.13) H 01/16/21 00:50 APTT 29.2 Sec. (24.2-36.6) 01/16/21 00:50 ABG pH 7.312 (7.320-7.450) L 01/16/21 06:06 POC ABG pCO2 46.2 mmHg (32.0-48.0) 01/16/21 06:06 ABG pCO2 38.6 mm Hg 01/15/21 01:39 POC ABG pO2 105.3 mmHg (83-108) 01/16/21 06:06 ABG pO2 211.1 mm Hg (80.0-90.0) H 01/15/21 01:39 POC ABG HCO3 22.8 01/16/21 06:06 ABG HCO3 24.5 mmol/L (20.0-26.0) 01/15/21 01:39 ABG O2 Saturation 98.0 (0-100) 01/16/21 06:06 ABG O2 Content 15.5 (0.0-44) 01/15/21 01:39 POC ABG Base Excess -3.4 01/16/21 06:06 ABG Base Excess 0.2 mmol/L (-2.0-3.0) 01/15/21 01:39 ABG Hemoglobin 12.0 (12.0-17.5) 01/16/21 06:06 ABG Oxyhemoglobin 97.6 (94-98) 01/16/21 06:06 ABG Carboxyhemoglobin 1.1 % (0.0-5.0) 01/15/21 01:39 ABG Methemoglobin 0.3 (0.0-1.5) 01/16/21 06:06 ABG Sodium 141.8 mmol/L (136.0-145.0) 01/16/21 06:06 ABG Potassium 4.6 mmol/L (3.40-4.50) H 01/16/21 06:06 ABG Chloride 110.0 mmol/L (98-107) H 01/16/21 06:06 ABG Glucose 126 mg/dL (65-95) H 01/16/21 06:06 Oxyhemoglobin 97.7 % (95.0-99.0) 01/15/21 01:39 Carboxyhemoglobin 0.1 (0.5-1.5) L 01/16/21 06:06 FiO2 50 % 01/15/21 01:39 FiO2 % 30.0 01/16/21 06:06 Sodium 140 mmol/L (137-145) 01/19/21 04:42 Potassium 3.5 mmol/L (3.6-5.0) L 01/19/21 04:42 Chloride 102.4 mmol/L (98-107) 01/19/21 04:42 Carbon Dioxide 25 mmol/L (22-30) 01/19/21 04:42 Anion Gap 16 mmol/L 01/19/21 04:42 BUN 19 mg/dL (7-17) H 01/19/21 04:42 Creatinine 0.8 mg/dL (0.6-1.2) 01/19/21 04:42 Estimated GFR > 60 ml/min 01/19/21 04:42 BUN/Creatinine Ratio 24 % 01/19/21 04:42 Glucose 89 mg/dL (65-100) 01/19/21 04:42 POC Glucose 90 mg/dL (70-105) 01/19/21 11:32 Lactic Acid 2.00 mmol/L (0.7-2.0) 01/15/21 08:44 Calcium 8.4 mg/dL (8.4-10.2) 01/19/21 04:42 Total Bilirubin < 0.20 mg/dL (0.1-1.2) 01/16/21 03:06 Direct Bilirubin < 0.2 mg/dL (0-0.2) 01/16/21 03:06 Indirect Bilirubin 0.0 mg/dL 01/16/21 03:06 AST 46 units/L (5-40) H 01/16/21 03:06 ALT 129 units/L (7-56) H 01/16/21 03:06 Alkaline Phosphatase 118 units/L (35-129) 01/16/21 03:06 Troponin T < 0.010 ng/mL (0.00-0.029) 01/14/21 19:54 C-Reactive Protein 0.50 mg/dL (0.00-1.30) 01/16/21 00:50 NT-Pro-B Natriuret Pep 192.9 pg/mL (0-900) 01/14/21 19:54 Total Protein 5.9 g/dL (6.3-8.2) L 01/16/21 03:06 Albumin 3.5 g/dL (3.9-5) L 01/16/21 03:06 Albumin/Globulin Ratio 1.5 % 01/16/21 03:06 Triglycerides 58 mg/dL (2-149) 01/16/21 02:13 Procalcitonin 0.58 ng/mL (<0.15) 01/16/21 00:50 Arterial Blood Glucose 126 mg/dL (65-95) H 01/16/21 06:06 Urine Color Straw (Yellow) 01/14/21 21:20 Urine Turbidity Hazy (Clear) 01/14/21 21:20 Urine pH 5.0 (5.0-7.0) 01/14/21 21:20 Ur Specific [place] 1.035 (1.003-1.030) H 01/14/21 21:20 Urine Protein >500 mg/dL (Negative) 01/14/21 21:20 Urine Glucose (UA) 500 mg/dL (Negative) 01/14/21 21:20 Urine Ketones Negative mg/dL (Negative) 01/14/21 21:20 Urine Blood Negative (Negative) 01/14/21 21:20 Urine Nitrite Negative (Negative) 01/14/21 21:20 Ur Reducing Substances Not Reportable 01/14/21 21:20 Urine Bilirubin Negative (Negative) 01/14/21 21:20 Urine Ictotest Not Reportable 01/14/21 21:20 Urine Urobilinogen < 2.0 mg/dL (<2.0) 01/14/21 21:20 Ur Leukocyte Esterase Negative (Negative) 01/14/21 21:20 Urine WBC (Auto) 5.0 /HPF (0.0-6.0) 01/14/21 21:20 Urine RBC (Auto) 3.0 /HPF (0.0-6.0) 01/14/21 21:20 U Epithel Cells (Auto) 5.0 /HPF (0-13.0) 01/14/21 21:20 Hyaline Casts 28 /LPF 01/14/21 21:20 Urine Mucus Few /HPF 01/14/21 21:20 Nasal Screen MRSA (PCR) Negative (Negative) 01/18/21 Unknown Salicylates < 0.3 mg/dL (2.8-20.0) L 01/14/21 19:54 Urine Opiates Screen Negative 01/14/21 21:20 Urine Methadone Screen Negative 01/14/21 21:20 Acetaminophen 5.9 ug/mL (10.0-30.0) L 01/14/21 19:54 Ur Barbiturates Screen Negative 01/14/21 21:20 Ur Phencyclidine Scrn Negative 01/14/21 21:20 Ur Amphetamines Screen Negative 01/14/21 21:20 U Benzodiazepines Scrn Negative 01/14/21 21:20 Urine Cocaine Screen Negative 01/14/21 21:20 U Marijuana (THC) Screen Negative 01/14/21 21:20 Drugs of Abuse Note Disclamer 01/14/21 21:20 Plasma/Serum Alcohol < 0.01 % (0-0.07) 01/14/21 19:54 Coronavirus (PCR) Negative (Negative) 01/17/21 Unknown Microbiology: Microbiology 01/15/21 Unknown Sputum - Endotracheal Wash Sputum Culture - Final 01/14/21 19:54 Peripheral/Venous Blood Culture - Preliminary NO GROWTH AFTER 4 DAYS 01/14/21 20:03 Peripheral/Venous Blood Culture - Preliminary NO GROWTH AFTER 4 DAYS Calderon/IV: Voiding Method External Female Catheter Active Medications - Current Medications Current Medications: Generic Name Dose Route Start Last Admin Trade Name Freq PRN Reason Stop Dose Admin Acetaminophen 650 mg 01/14/21 22:21 Acetaminophen 325 Mg Tab PO Q6H PRN Pain MILD(1-3)/Fever >100.5/ANTONIO Albuterol/Ipratropium 1 ampul 01/15/21 20:00 01/19/21 09:04 Ipratropium/Albuterol Sulfate 3 Ml Ampul.Neb IH 1 ampul TIDRT REANNA Administration Apixaban 5 mg 01/15/21 22:00 01/19/21 10:42 Apixaban 5 Mg Tab PO 5 mg Q12HR REANNA Administration Protocol Arformoterol Tartrate 15 mcg 01/17/21 20:00 01/19/21 09:04 Arformoterol 15 Mcg/2 Ml Nebu IH 15 mcg Q12HRT REANNA Administration Budesonide 0.5 mg 01/17/21 20:00 01/19/21 09:04 Budesonide 0.5 Mg/2 Ml Nebu IH 0.5 mg Q12HRT REANNA Administration Dextrose 50 ml 01/15/21 15:27 Dextrose 50% In Water (25gm) 50 Ml Syringe IV Q30MIN PRN Hypoglycemia Protocol Famotidine 20 mg 01/18/21 10:00 01/19/21 10:42 Famotidine 20 Mg Tab PO 20 mg BID REANNA Administration Levofloxacin/Dextrose 750 mg in 150 mls @ 100 mls/hr 01/14/21 23:00 01/19/21 00:05 Levaquin 750mg/150ml IV 100 mls/hr Q24H REANNA Administration Protocol Insulin Human Lispro 0 unit 01/17/21 11:30 01/19/21 10:30 Insulin Lispro 100 Unit/Ml SUB-Q Not Given ACHS REANNA Protocol Magnesium Hydroxide 30 ml 01/14/21 22:21 Magnesium Hydroxide (Mom) Oral Liqd Udc PO Q4H PRN Constipation Morphine Sulfate 2 mg 01/14/21 22:21 Morphine 2 Mg/1 Ml Inj IV Q4H PRN Pain, Moderate (4-6) Morphine Sulfate 4 mg 01/14/21 22:21 01/16/21 04:45 Morphine 4 Mg/1 Ml Inj IV 4 mg Q4H PRN Administration Pain , Severe (7-10) Ondansetron HCl 4 mg 01/14/21 22:21 Ondansetron 4 Mg/2 Ml Inj IV Q8H PRN Nausea And Vomiting Sodium Chloride 10 ml 01/15/21 10:00 01/19/21 10:42 Sodium Chloride 0.9% 10 Ml Flush Syringe IV 10 ml BID REANNA Administration Sodium Chloride 10 ml 01/14/21 22:21 Sodium Chloride 0.9% 10 Ml Flush Syringe IV PRN PRN LINE FLUSH Nutrition/Malnutrition Assess - Dietary Evaluation Nutrition/Malnutrition Findings: Nutrition Notes Start: 01/15/21 13:56 Freq: Status: Active Protocol: Document 01/19/21 11:45 GB (Rec: 01/19/21 11:59 GB [email or web address]) Nutrition Notes Initial or Follow up Reassessment Current Diagnosis COPD,Heart Failure Other Pertinent Diagnosis SOB Current Diet Low sodium diet Labs/Tests 01/19: K 3.5, BUN 19 Pertinent Medications reviewed Height 5 ft 4 in Weight 102.7 kg [place] Body Weight (kg) 54.54 BMI 38.8 Weight change and time frame 01/14: 86.183 kg 01/18: 102.7 kg Change of +16.517 kg for +19% gain in one week Weight Status Obese Subjective/Other Information Vent ended 01/16. Diet advanced to low sodium. Last BM 01/19. Pt on nasal cannula Percent of energy/protein needs met: po intake of meals at 75% or greater with meet estimated energy needs. Burn Absent Trauma Absent GI Symptoms None Food Allergy Yes Current % PO Other Minimum of two criteria No #2 Nutrition Diagnosis Inadequate energy intake Comments: intubated and sedated 01/19: vent ended 01/16 Etiology CHF, SOB As Evidenced by Signs and Symptoms Intubated and sedated Diagnosis Progress(for reassessment Resolved documentation) #1 Nutrition Diagnosis Food and nutrition-related knowledge deficit Comments: consult for nutrition education - pt intubated and sedated, pt known to hospital, education not a appropriate at this time Etiology CHF As Evidenced by Signs and Symptoms Consult for nutrition therapy education Diagnosis Progress(for reassessment Resolved documentation) Is patient on ventilator? No Is Patient Ambulatory and/or Out of Bed Yes REE-(Riley-St. Jeor-ambulatory/OOB) [ NUTR.[id number]] Kcal/Kg value to use for calculation 20 Approximate Energy Requirements Using 2053 kcal/Kg Calculation Used for Recommendations Kcal/kg Additional Notes Protein: 1-1.2 g/kg @ 78k -94g Fluids: 1 ml/kcal or per MD Nutrition Intervention Change Diet Order: Continue Nutrition Support: n/a Teaching Recipient Patient Teaching Methods Discussion,Handout Response to Teaching Verbalize understanding Education Handouts Provided AND: Low Sodium nutrition therapy Barriers to Learning No Barriers Goal #1 Extubation and diet advanced to Cardiac. 01/19: met, resolved Goal #2 Tolerate TF Vital AF 1.2 at goal rate of 50ml/hr 01/19: met, resolved Goal #3 NEW: PO intake of meals to be 50% or greater daily for LOS Follow-Up By: 01/26/21 Additional Comments f/u: PO intake - Attestation Statement I have reviewed and agreed w/ Malnutrition eval & tx plan: Yes
[2021-01-20] MEDS: BUDESONIDE 0.5 MG/2 ML NEBU IH SCH (07:56)
[2021-01-20] MEDS: ARFORMOTEROL 15 MCG/2 ML NEBU IH SCH (07:56)
[2021-01-20] MEDS: IPRATROPIUM/ALBUTEROL SULFATE 3 ML AMPUL.NEB IH SCH ×2 (07:56→14:39)
[2021-01-20] MEDS: INSULIN LISPRO 100 UNIT/ML SUB-Q SCH ×3 (09:25→16:43)
[2021-01-20] MEDS: FAMOTIDINE 20 MG TAB PO SCH (09:26)
[2021-01-20] MEDS: APIXABAN 5 MG TAB PO SCH (09:26)
[2021-01-20 14:05] VITALS: BP 102/67
--- NOTE | 2021-01-20 14:22 | Discharge Summary ---
Providers - Providers Date of Admission: 01/14/21 22:21 Date of discharge: 01/20/21 Attending physician: ALIE BOWLES MD 01/14/21 22:21 Consult to Dietitian/Nutrition [CONS] Routine Physician Instructions: Reason For Exam: Reason for Consult: Write/Manage Tube Feeding Consult to Physician [CONS] Routine Comment: Consulting Provider: KEISHA JAMES Physician Instructions: Reason For Exam: RESPIRATORY FAILURE, ASTHMA EXACERBATION 01/17/21 13:28 Physical Therapy Evaluation and Treat [CONS] Routine Comment: Reason For Exam: Weakness Primary care physician: [employer] Hospitalization Reason for admission: Acute asthma Condition: Stable Pertinent studies: Reviewed. Procedures: Intubation. Hospital course: The patient is a 55-year-old female with past medical history of CHF, hypertension, diabetes, atrial fibrillation, and asthma complicated by numerous intubations who initially presented for worsening asthma exacerbation. EMS was called due to the patient being found unresponsive with pinpoint pupils. After the initiation of Narcan there was some improvement in responsiveness; however, the patient still continued to have labored breathing despite getting nebulizing treatments. The patient was subsequently intubated in the emergency room and transferred to the ICU. The patient was extubated on 01/16/2021. The patient received IV steroids for asthma exacerbation treatment, and was initiated on Le vaquin for presumed CAP. The patient was weaned off of nasal cannula, and is medically safe for discharge. The patient will be going home with a rolling walker as well as home health (physical therapy). The patient expressed understanding, and will be discharged home with family. Disposition: HOME HEALTH CARE SERVICE Final Discharge Diagnosis (Prints w/discharge instructions): Acute asthma exacerbation; acute hypoxic respiratory failure; community-acquired pneumonia Time spent for discharge: 45 Core Measure Documentation - Palliative Care Palliative Care/ Comfort Measures: Not Applicable - Core Measures Any of the following diagnoses?: history only - VTE Discharge Requirements Deep Vein Thrombosis/Pulmonary Embolism Present on Admission: No Has pt received <5 days of overlap therapy or INR<2.0: No (Not applicable) Anticoagulant overlap therapy prescribed at discharge: Yes - Acute [place] Discharge Requirements Aspirin at discharge: No Reason for no aspirin on DC: Medical contraindication (Not applicable) LILI/ARB for LVSD if EF <40%: Yes Beta ai at discharge: Yes Statin for LDL = or >100 mg/dl on DC: Not Applicable Reason for no statin on DC: Medical contraindication (Not applicable) - Heart Failure Discharge Requirements LILI/ARB for LVSD if EF <40%: Yes Beta ai at discharge: Yes - Stroke Discharge Requirements Statin for LDL = or >70 mg/dl on DC: Not Applicable Reason for no statin on DC: Not Indicated Anticoag for atrial fib/atrial flutter: Yes Antithrombotic for ischemic stroke: No Reason for no antithrombotic on DC: Not Indicated Exam - Constitutional Vitals: Temp Pulse Resp BP Pulse Ox 98.8 F 83 18 102/67 96 01/20/21 12:05 01/20/21 12:05 01/20/21 12:05 01/20/21 12:05 01/20/21 12:05 General appearance: Present: no acute distress, well-nourished - EENT Eyes: Present: PERRL, EOM intact ENT: clear oral mucosa, dentition normal, other (Significant loss of hearing (left <right)) - Neck Neck: Present: supple, normal ROM - Respiratory Respiratory effort: normal - Cardiovascular Rhythm: irregularly irregular Heart Sounds: Present: S1 & S2 - Extremities Extremities: no ischemia, pulses intact, pulses symmetrical, No edema, normal temperature, normal color Peripheral Pulses: within normal limits - Abdominal General gastrointestinal: Present: soft, non-tender, non-distended, normal bowel sounds Female genitourinary: Present: deferred - Rectal Rectal Exam: deferred - Integumentary Integumentary: Present: clear, warm, dry - Musculoskeletal Musculoskeletal: strength equal bilaterally - Psychiatric Psychiatric: appropriate mood/affect, intact judgment & insight, memory intact, cooperative - Neurologic Neurologic: CNII-XII intact, moves all extremities - Allied Health Allied health notes reviewed: nursing Plan Activity: advance as tolerated Weight Bearing Status: Weight Bear as Tolerated Diet: low salt Durable Medical Equipment Needed Upon Discharge: Walker-Rolling Health Concerns: Patient should return back to the emergency room if they experience any of the following: Fevers, chills, uncontrollable nausea and vomiting, inability to tolerate oral intake, chest pain/pressure, shortness of breath, weakness, confusion, or loss of consciousness. Assessment: Discharge home with family. Patient going home with rolling walker and home health with physical therapy. Follow up with: PRIMARY CARE, [Primary Care Provider] - 3-5 Days Prescriptions: Arformoterol Nebu [Brovana Nebu] 15 mcg IH Q12HRT 90 Days ml Apixaban [Eliquis] 5 mg PO Q12HR 90 Days tablet Budesonide [Pulmicort Respules] 0.5 mg IH Q12HRT 90 Days nebu
== END 2021-01-20 17:53 | disposition home health service (06) | DRG 208 ==
LOC: ED 19:27 → CC1 22:21 → IMCU 01-17 09:15 → 4A 01-18 23:27
PROVIDERS: ADMIT Internal Medicine Geriatric Medicine; ATTEND Student in an Organized Health Care Education/Training Program
PROC: 5A1945Z Respiratory Ventilation, 24-96 Consecutive Hours (ICD-10-PCS; principal; 2021-01-14)
PROC: 0BH17EZ Insertion of Endotracheal Airway into Trachea, Via Natural or Artificial Opening (ICD-10-PCS; 2021-01-14)
PROC: 4A033R1 Measurement of Arterial Saturation, Peripheral, Percutaneous Approach (ICD-10-PCS; 2021-01-14)
DX: J96.01 Acute respiratory failure with hypoxia (principal); J18.9 Pneumonia, unspecified organism; J45.901 Unspecified asthma with (acute) exacerbation; J44.0 Chronic obstructive pulmonary disease with (acute) lower respiratory infection; Z20.822 Contact with and (suspected) exposure to COVID-19; I50.9 Heart failure, unspecified; I11.0 Hypertensive heart disease with heart failure; I48.91 Unspecified atrial fibrillation; E11.9 Type 2 diabetes mellitus without complications; K21.9 Gastro-esophageal reflux disease without esophagitis; F41.9 Anxiety disorder, unspecified; M81.0 Age-related osteoporosis without current pathological fracture; Z88.0 Allergy status to penicillin; Z88.8 Allergy status to other drugs, medicaments and biological substances; Z91.010 Allergy to peanuts; Z79.84 Long term (current) use of oral hypoglycemic drugs
CPT/HCPCS: 36415; 36600; 71045; 80048; 80053; 80076; 80307; 80320; 81001; 82140; 82565; 82803; 82805; 82962; 83880; 84145; 84478; 84484; 85007; 85025; 85027; 85610; 85730; 86140; 87040; 87070; 87205; 87641; 93005; 93306; 94002; 94003; 94640; 94644; 94760; G0378; G0480; J0330; J1650; J1815; J1956; J2060; J2270; J2704; J2920; J3010; J3475; J7030; U0003

== ENCOUNTER 2021-02-05 08:17 | Emergency (ER) | payer MEDICARE ==
[2021-02-05 08:23] VITALS: BP 115/82
--- NOTE | 2021-02-05 09:18 | Emergency Department Report ---
HPI - General Chief Complaint: Dizziness Time Seen by Provider: 02/05/21 08:41 - HPI HPI: 55-year-old -Niue[place] female presents to the emergency department with complaint of some nonspecific dizziness/lightheadedness that has been going on since last night. It is associated with some intermittent blurry vision. The patient says that she has a history of diabetes but has been unable to check her blood sugar. She also has a past medical history of hypertension, asthma, CHF, COPD, paroxysmal A. fib on anticoagulation, previous MS. She denies any fever, slurred speech, numbness or paresthesias, chest pain, shortness of breath, lower extremity swelling. The patient was recently admitted to this hospital and intubated after she was found unresponsive in respiratory failure and says that she was found to have pneumonia. She still complains of a cough and wants to make sure that the pneumonia is resolving. Her primary care physician is Dr. Baumann. Her tile installer is Dr. Stokes and she saw him yesterday for follow-up. ED Past Medical Hx - Past Medical History Previous Medical History?: Yes Hx Hypertension: Yes Hx Heart Attack/AMI: No Hx Congestive Heart Failure: Yes Hx Diabetes: Yes Hx Pulmonary Embolism: No Hx GERD: Yes Hx Liver Disease: No Hx Renal Disease: No Hx Sickle Cell Disease: No Hx Arthritis: Yes Hx Headaches / Migraines: No Hx Seizures: No Hx Kidney Stones: No Hx Psychiatric Treatment: Yes (Anxiety) Hx Asthma: Yes Hx COPD: Yes Hx Tuberculosis: No Hx HIV: No Additional medical history: Intubated x 9. heart murmur. osteoporosis. hearing loss in [place]. [place] - Surgical History Past Surgical History?: Yes Hx Coronary Stent: No Hx Open Heart Surgery: No Hx Pacemaker: No Hx Internal Defibrillator: No Hx Cholecystectomy: No Hx Appendectomy: No Hx Breast Surgery: No Additional Surgical History: cataracts, nasal surg, tubal ligation. bilateral foot. Left shoulder surgery, R. knee sx / EYE SURGERY - Social History Smoking Status: Never Smoker - Medications Home Medications: Home Medications Medication Instructions Recorded Confirmed Last Taken Type Montelukast [Singulair] 10 mg PO QHS #30 tablet 01/06/20 01/19/21 01/09/21 Rx Albuterol Mdi (or & Nicu Only) 2 puff IH QID PRN #1 inhalation 11/22/20 10/05/21 09/09/21 Rx [ProAir HFA Inhaler] Metoprolol [Lopressor TAB] 25 mg PO Q8HR #90 tablet 08/19/20 01/19/21 Unknown Rx ALBUTEROL NEB's [Proventil 0.083% 1 vial INHALATION QID PRN 01/19/21 01/19/21 Unknown History NEBS] Bimatoprost 0.01%(Nf) 1 drop OU QHS 01/19/21 01/19/21 Unknown History Furosemide [Lasix TAB] 20 mg PO QDAY 01/19/21 01/19/21 Unknown History Glimepiride [Amaryl] 4 mg PO QDAY 01/19/21 01/19/21 Unknown History Loratadine 10 mg PO QDAY 01/19/21 01/19/21 Unknown History lisinopriL [Zestril TAB] 40 mg PO QDAY 01/19/21 01/19/21 Unknown History Apixaban [Eliquis] 5 mg PO Q12HR 90 Days tablet 01/20/21 Unknown Rx Arformoterol Nebu [Brovana Nebu] 15 mcg IH Q12HRT 90 Days ml 01/20/21 Unknown Rx Budesonide [Pulmicort Respules] 0.5 mg IH Q12HRT 90 Days nebu 01/20/21 Unknown Rx ED Review of Systems ROS: Stated complaint: ASTHMA Other details as noted in HPI Comment: All other systems reviewed and negative Constitutional: denies: chills, fever Eyes: vision change (intermittent blurry vision). denies: eye pain ENT: denies: ear pain, throat pain Respiratory: cough. denies: orthopnea Cardiovascular: denies: chest pain, edema Gastrointestinal: denies: abdominal pain, vomiting Genitourinary: denies: dysuria, discharge Musculoskeletal: denies: back pain, arthralgia Skin: denies: rash, lesions Neurological: other (dizzy/lightheaded). denies: headache Physical Exam - Physical Exam Vital Signs: Vital Signs 02/05/21 08:22 Temperature 98.1 F Pulse Rate 76 Respiratory 18 Rate Blood Pressure 115/82 O2 Sat by Pulse 98 Oximetry Physical Exam: GENERAL: The patient is well-developed well-nourished. HENT: Normocephalic. Atraumatic. Patient has moist mucous membranes. EYES: Extraocular motions are intact. No nystagmus. NECK: Supple. Trachea is midline. CHEST/LUNGS: Clear to auscultation. There is no respiratory distress noted. HEART/CARDIOVASCULAR: Regular. There is no tachycardia. There is no murmur. ABDOMEN: Abdomen is soft, nontender. Patient has normal bowel sounds. SKIN: Skin is warm and dry. NEURO: The patient is awake, alert, and oriented. The patient is cooperative. The patient has no focal neurologic deficits. Normal speech. Cranial nerves II through XII grossly intact. No facial asymmetry. No pronator drift. MUSCULOSKELETAL: There is no tenderness or deformity. There is no limitation range of motion. ED Course Vital Signs 02/05/21 08:22 Temperature 98.1 F Pulse Rate 76 Respiratory 18 Rate Blood Pressure 115/82 O2 Sat by Pulse 98 Oximetry ED Medical Decision Making - Lab Data Result diagrams: 02/05/21 09:41 02/05/21 09:41 Lab Results 02/05/21 02/05/21 02/05/21 Range/Units 09:41 09:41 09:41 WBC 4.1 L (4.5-11.0) K/mm3 RBC 3.97 (3.65-5.03) M/mm3 Hgb 11.2 (10.1-14.3) gm/dl Hct 34.3 (30.3-42.9) % MCV 87 (79-97) fl MCH 28 (28-32) pg MCHC 33 (30-34) % RDW 14.6 (13.2-15.2) % Plt Count 242 (140-440) K/mm3 Baso % (Auto) Senior Engineer Sodium 141 (137-145) mmol/L Potassium 4.6 (3.6-5.0) mmol/L Chloride 106.7 (98-107) mmol/L Carbon Dioxide 25 (22-30) mmol/L Anion Gap 14 mmol/L BUN 5 L (7-17) mg/dL Creatinine 0.8 (0.6-1.2) mg/dL Estimated GFR > 60 ml/min BUN/Creatinine Ratio 6 % Glucose 93 (65-100) mg/dL Calcium 9.1 (8.4-10.2) mg/dL Total Bilirubin 0.20 (0.1-1.2) mg/dL AST 17 (5-40) units/L ALT 16 (7-56) units/L Alkaline Phosphatase 85 (35-129) units/L Troponin T < 0.010 (0.00-0.029) ng/mL Total Protein 6.5 (6.3-8.2) g/dL Albumin 4.1 (3.9-5) g/dL Albumin/Globulin Ratio 1.7 % TSH 1.100 (0.270-4.200) mlU/mL - Radiology Data Radiology results: image reviewed interpreted by me: Chest x-ray does not show any acute process. There are no pleural effusions, obvious pneumonia and there is no pneumothorax. No widened mediastinum. - Medical Decision Making This patient presents to the emergency department with a complaint of some dizziness/lightheadedness and also a complaint of some intermittent blurry vision. At the time of my examination she says that the blurry vision has resolved. On examination she does not have any focal, motor or sensory deficits and her cranial nerves are intact. Heart and lung sounds are normal to auscultation and the patient does not appear in any respiratory or acute distress. Chest x-ray does not show any pneumonia, pleural effusions, pneumothorax, widened mediastinum, or any other acute process. EKG does not show any morphology consistent with ST elevation myocardial inf arction. Labs are mostly unremarkable for CBC, metabolic panel, negative troponin, and normal thyroid function. Vital signs reassuring including being afebrile. The patient appears safe for discharge home at this time. She was seen ambulatory in the emergency department and both appears and feels stable. She has good outpatient follow-up with primary care and cardiology. Critical Care Time: No Critical care attestation.: If time is entered above; I have spent that time in minutes in the direct care of this critically ill patient, excluding procedure time. ED Disposition Clinical Impression: Dizziness, Lightheaded Disposition: 01 HOME / SELF CARE / HOMELESS Is pt being admited?: No Condition: Stable Instructions: Near-Syncope, Dizziness Additional Instructions: Please follow-up with your primary care physician in the next few days. Check your blood sugar regularly. Return to the emergency department with any worsening of your symptoms, new or concerning symptoms not addressed during this current emergency department visit, or with any acute distress. Referrals: RON BAUMANN MD [Primary Care Provider] - 3-5 Days SARAH STOKES MD [Staff Physician] - 3-5 Days Forms: Work/School Release Form(ED) Time of Disposition: 11:47 - Assessment Assessment Interval: Baseline - Level of Consciousness 1a. Level of Consciousness: alert/keenly responsive - LOC Questions 1b. LOC Questions: answers both correctly - LOC Command 1c. LOC Commands: performs tasks correctly - Best Gaze 2. Best Gaze: normal - Visual 3. Visual: no visual loss - Facial Palsy 4. Facial Palsy: normal symmetrical movement - Motor Arm 5a. Motor Arm Left: no drift 5b. Motor Arm Right: no drift - Motor Leg 6a. Motor Leg Left: no drift 6b. Motor Leg Right: no drift - Limb Ataxia 7. Limb Ataxia: absent - Sensory 8. Sensory: normal - Best Language 9. Best Language: no aphasia - Dysarthria 10. Dysarthria: normal - Extinction and Inattention 11. Extinction/Inattention: no abnormality - Scoring Total Score: 0 Stroke Severity: No Stroke Symptoms
--- NOTE | 2021-02-05 09:32 | XRay Report ---
CHEST 2 VIEWS INDICATION: cough. COMPARISON: 01/18/2021 FINDINGS: Support devices: None. Heart: Within normal limits. Lungs/pleura: No acute air space or interstitial disease. No pneumothorax. Additional findings: None. IMPRESSION: No acute findings. Unremarkable chest films. Signer Name: Petr Bran Jr, MD Signed: 02/05/2021 9:28 AM Workstation Name: [id number]
[2021-02-05] MEDS ORDERED: ACETAMINOPHEN 325 MG TAB PO ONE (10:17)
[2021-02-05 10:23] LABS: Alanine Aminotransferase 16 units/L (7-56); Albumin 4.1 g/dL (3.9-5); BUN/Creatinine Ratio 6; Blood Urea Nitrogen 5 mg/dL (7-17); Calcium 9.1 mg/dL (8.4-10.2); Hemolysis Index 7
[2021-02-05 11:21] LABS: Red Blood Count 3.97 M/mm3 (3.65-5.03)
[2021-02-05 11:22] LABS: Hematocrit 34.3 % (30.3-42.9); Hemoglobin 11.2 gm/dl (10.1-14.3); Mean Corpuscular HGB Conc 33 % (30-34); Mean Corpuscular Volume 87 fl (79-97); Platelet Count 242 K/mm3 (140-440); Red Cell Distribution Width 14.6 % (13.2-15.2)
--- NOTE | 2021-02-06 12:19 | Electrocardiograph Report ---
[facility] Test Date: 2021-02-05 Test Time: 11:36:55 Pat Name: EDIE RENDON Department: Room: Gender: F Membership Assistant: : 1965 Requested By: ANRDES NORWOOD Order Number: [id number] Reading MD: Kamaljit Mccullough Measurements Intervals [place] Rate: 68 P: 52 DE: 197 QRS: 28 QRSD: 82 T: -11 QT: 479 QTc: 509 Interpretive Statements Sinus rhythm Lateral infarct, acute Compared to ECG 01/15/2021 21:22:09 Myocardial infarct finding now present Sinus tachycardia no longer present Electronically Signed On 02-06-2021 12:19:30 EDT by Kamaljit Mccullough
== END 2021-02-05 12:24 | disposition home or self-care (01) ==
LOC: ED 08:17
DX: R42 Dizziness and giddiness (principal); I11.0 Hypertensive heart disease with heart failure; I50.9 Heart failure, unspecified; K21.9 Gastro-esophageal reflux disease without esophagitis; E11.8 Type 2 diabetes mellitus with unspecified complications; M19.90 Unspecified osteoarthritis, unspecified site; J44.9 Chronic obstructive pulmonary disease, unspecified; F41.9 Anxiety disorder, unspecified; R01.1 Cardiac murmur, unspecified; K44.9 Diaphragmatic hernia without obstruction or gangrene; Z98.890 Other specified postprocedural states
CPT/HCPCS: 36415; 71046; 80053; 84443; 84484; 85025; 93005; 99283

== ENCOUNTER 2021-02-23 12:16 | Emergency (ER) | payer MEDICARE ==
--- NOTE | 2021-02-23 13:39 | XRay Report ---
CHEST 2 VIEWS INDICATION / CLINICAL INFORMATION: chest pain. COMPARISON: 02/05/2021 FINDINGS: SUPPORT DEVICES: None. HEART / MEDIASTINUM: No significant abnormality. LUNGS / PLEURA: No significant pulmonary or pleural abnormality. No pneumothorax. ADDITIONAL FINDINGS: No significant additional findings. IMPRESSION: 1. No acute findings. Signer Name: David Mcfadden MD Signed: 02/23/2021 1:34 PM Workstation Name: [id number]
--- NOTE | 2021-02-23 13:55 | Emergency Department Report ---
ED General Adult HPI - General Chief complaint: Chest Pain Stated complaint: CHEST TIGHTNESS Time Seen by Provider: 02/23/21 12:51 Source: patient Mode of arrival: Ambulatory Limitations: No Limitations - History of Present Illness Initial comments: Patient is a 55-year-old female presents emergency room with complaints of 2 different complaints. She states her first complaint is right hand pain and right shoulder pain. She denies any fall or injury or trauma. She states her pain is worse with certain movements. She denies any numbness or weakness. Patient states her second complaint is chest tightness for a few days. She states occasionally she has light wheezing. She states that she was not sure if she pulled a muscle but denies any injury. She denies any shortness of breath, leg swelling, calf pain, fever, vomiting, diarrhea, cough, hemoptysis. Past medical history of CHF, COPD, hypertension, asthma, arthritis, DM, GERD, multiple intubations. - Related Data Home Medications Medication Instructions Recorded Confirmed Last Taken ALBUTEROL NEB's [Proventil 0.083% 1 vial INHALATION QID PRN 01/19/21 01/19/21 Unknown NEBS] Bimatoprost 0.01%(Nf) 1 drop OU QHS 01/19/21 01/19/21 Unknown Furosemide [Lasix TAB] 20 mg PO QDAY 01/19/21 01/19/21 Unknown Glimepiride [Amaryl] 4 mg PO QDAY 01/19/21 01/19/21 Unknown Loratadine 10 mg PO QDAY 01/19/21 01/19/21 Unknown lisinopriL [Zestril TAB] 40 mg PO QDAY 01/19/21 01/19/21 Unknown Previous Rx's Medication Instructions Recorded Last Taken Type Montelukast [Singulair] 10 mg PO QHS #30 tablet 01/06/20 01/09/21 Rx Albuterol Mdi (or & Nicu Only) 2 puff IH QID PRN #1 inhalation 03/08/20 12/24/20 Rx [ProAir HFA Inhaler] Metoprolol [Lopressor TAB] 25 mg PO Q8HR #90 tablet 08/19/20 Unknown Rx Apixaban [Eliquis] 5 mg PO Q12HR 90 Days tablet 01/20/21 Unknown Rx Arformoterol Nebu [Brovana Nebu] 15 mcg IH Q12HRT 90 Days ml 01/20/21 Unknown Rx Budesonide [Pulmicort Respules] 0.5 mg IH Q12HRT 90 Days nebu 01/20/21 Unknown Rx Meloxicam [Mobic] 7.5 mg PO QDAY PRN #12 tablet 02/23/21 Unknown Rx methOCARBAMOL [Robaxin TAB] 500 mg PO BID PRN #14 tab 02/23/21 Unknown Rx Allergies Allergy/AdvReac Type Severity Reaction Status Date / Time amoxicillin Allergy Anaphylaxis Verified 01/07/21 18:36 Penicillins Allergy Rash Verified 01/07/21 18:36 seafood Allergy Severe Anaphylaxis Uncoded 03/16/17 01:08 peanuts Allergy Anaphylaxis Uncoded 09/20/19 12:06 ED Review of Systems ROS: Stated complaint: CHEST TIGHTNESS Other details as noted in HPI Comment: All other systems reviewed and negative ED Past Medical Hx - Past Medical History Hx Hypertension: Yes Hx Heart Attack/AMI: No Hx Congestive Heart Failure: Yes Hx Diabetes: Yes Hx Pulmonary Embolism: No Hx GERD: Yes Hx Liver Disease: No Hx Renal Disease: No Hx Sickle Cell Disease: No Hx Arthritis: Yes Hx Headaches / Migraines: No Hx Seizures: No Hx Kidney Stones: No Hx Psychiatric Treatment: Yes (Anxiety) Hx Asthma: Yes Hx COPD: Yes Hx Tuberculosis: No Hx HIV: No Additional medical history: Intubated x 9. heart murmur. osteoporosis. hearing loss in [place]. [place] - Surgical History Hx Coronary Stent: No Hx Open Heart Surgery: No Hx Pacemaker: No Hx Internal Defibrillator: No Hx Cholecystectomy: No Hx Appendectomy: No Hx Breast Surgery: No Additional Surgical History: cataracts, nasal surg, tubal ligation. bilateral foot. Left shoulder surgery, R. knee sx / EYE SURGERY - Social History Smoking Status: Never Smoker - Medications Home Medications: Home Medications Medication Instructions Recorded Confirmed Last Taken Type Montelukast [Singulair] 10 mg PO QHS #30 tablet 01/06/20 01/19/21 01/09/21 Rx Albuterol Mdi (or & Nicu Only) 2 puff IH QID PRN #1 inhalation 03/08/20 01/19/21 12/24/20 Rx [ProAir HFA Inhaler] Metoprolol [Lopressor TAB] 25 mg PO Q8HR #90 tablet 08/19/20 01/19/21 Unknown Rx ALBUTEROL NEB's [Proventil 0.083% 1 vial INHALATION QID PRN 01/19/21 01/19/21 Unknown History NEBS] Bimatoprost 0.01%(Nf) 1 drop OU QHS 01/19/21 01/19/21 Unknown History Furosemide [Lasix TAB] 20 mg PO QDAY 01/19/21 01/19/21 Unknown History Glimepiride [Amaryl] 4 mg PO QDAY 01/19/21 01/19/21 Unknown History Loratadine 10 mg PO QDAY 01/19/21 01/19/21 Unknown History lisinopriL [Zestril TAB] 40 mg PO QDAY 01/19/21 01/19/21 Unknown History Apixaban [Eliquis] 5 mg PO Q12HR 90 Days tablet 01/20/21 Unknown Rx Arformoterol Nebu [Brovana Nebu] 15 mcg IH Q12HRT 90 Days ml 01/20/21 Unknown Rx Budesonide [Pulmicort Respules] 0.5 mg IH Q12HRT 90 Days nebu 01/20/21 Unknown Rx Meloxicam [Mobic] 7.5 mg PO QDAY PRN #12 tablet 02/23/21 Unknown Rx methOCARBAMOL [Robaxin TAB] 500 mg PO BID PRN #14 tab 02/23/21 Unknown Rx ED Physical Exam - General Limitations: No Limitations General appearance: alert, in no apparent distress - Head Head exam: Present: atraumatic, normocephalic - Eye Eye exam: Present: normal appearance - ENT ENT exam: Present: mucous membranes moist - Respiratory Respiratory exam: Present: normal lung sounds bilaterally. Absent: respiratory distress, wheezes, rales, rhonchi, stridor, chest wall tenderness, accessory muscle use, decreased breath sounds, prolonged expiratory - Cardiovascular Cardiovascular Exam: Present: regular rate, normal rhythm, normal heart sounds. Absent: systolic murmur, diastolic murmur, rubs, gallop - Extremities Exam Extremities exam: Present: other (mild ttp to the right thenar emminence, FROM of the RUE, mild discomfort with full flexion of the right shoulder, no deformity, no edema, no ecchymosis, no skin changes, neurovascularly intact) - Neurological Exam Neurological exam: Present: alert, oriented X3 - Psychiatric Psychiatric exam: Present: normal affect, normal mood - Skin Skin exam: Present: warm, dry, intact ED Course Vital Signs 02/23/21 15:32 Temperature 98.0 F Pulse Rate 67 Respiratory 19 Rate Blood Pressure 148/77 O2 Sat by Pulse 100 Oximetry ED Medical Decision Making - Lab Data Result diagrams: 02/23/21 13:07 02/23/21 13:07 Lab Results 02/23/21 02/23/21 Range/Units 13:07 13:07 WBC 4.2 L (4.5-11.0) K/mm3 RBC 3.87 (3.65-5.03) M/mm3 Hgb 10.9 (10.1-14.3) gm/dl Hct 33.5 (30.3-42.9) % MCV 87 (79-97) fl MCH 28 (28-32) pg MCHC 32 (30-34) % RDW 14.7 (13.2-15.2) % Plt Count 255 (140-440) K/mm3 Lymph % (Auto) 40.8 H (13.4-35.0) % Garvin % (Auto) 8.9 H (0.0-7.3) % Eos % (Auto) 4.3 (0.0-4.3) % Baso % (Auto) 1.6 (0.0-1.8) % Lymph # (Auto) 1.7 (1.2-5.4) K/mm3 Garvin # (Auto) 0.4 (0.0-0.8) K/mm3 Eos # (Auto) 0.2 (0.0-0.4) K/mm3 Baso # (Auto) 0.1 (0.0-0.1) K/mm3 Seg Neutrophils % 44.4 (40.0-70.0) % Seg Neutrophils # 1.9 (1.8-7.7) K/mm3 Sodium 140 (137-145) mmol/L Potassium 4.2 (3.6-5.0) mmol/L Chloride 104.3 (98-107) mmol/L Carbon Dioxide 23 (22-30) mmol/L Anion Gap 17 mmol/L BUN 8 (7-17) mg/dL Creatinine 0.7 (0.6-1.2) mg/dL Estimated GFR > 60 ml/min BUN/Creatinine Ratio 11 % Glucose 91 (65-100) mg/dL Calcium 8.8 (8.4-10.2) mg/dL Total Bilirubin 0.20 (0.1-1.2) mg/dL AST 18 (5-40) units/L ALT 16 (7-56) units/L Alkaline Phosphatase 82 (35-129) units/L Troponin T < 0.010 (0.00-0.029) ng/mL Total Protein 7.1 (6.3-8.2) g/dL Albumin 4.0 (3.9-5) g/dL Albumin/Globulin Ratio 1.3 % - EKG Data EKG shows normal: sinus rhythm, axis, intervals, QRS complexes, ST-T waves Rate: normal - Radiology Data Radiology results: report reviewed Ordering Physician: KENIA MARTINEZ Date of Service: 02/23/21 Procedure(s): XR chest routine 2V Accession Number(s): [id number] cc: KENIA MARTINEZ Fluoro Time In Minutes: CHEST 2 VIEWS INDICATION / CLINICAL INFORMATION: chest pain. COMPARISON: 02/05/2021 FINDINGS: SUPPORT DEVICES: None. HEART / MEDIASTINUM: No significant abnormality. LUNGS / PLEURA: No significant pulmonary or pleural abnormality. No pneumothorax. ADDITIONAL FINDINGS: No significant additional findings. IMPRESSION: 1. No acute findings. Signer Name: David Mcfadden MD Signed: 02/23/2021 1:34 PM Workstation Name: [id number] Transcribed By: SHANIKA Dictated By: David Mcfadden MD Electronically Authenticated By: David Mcfadden MD Signed Date/Time: 02/23/211333 DD/ 33 TD/TT: - Medical Decision Making Patient is a 55-year-old female presents emergency room with complaints of 2 different complaints. She states her first complaint is right hand pain and right shoulder pain. She denies any fall or injury or trauma. She states her pain is worse with certain movements. She denies any numbness or weakness. Patient states her second complaint is chest tightness for a few days. She states occasionally she has light wheezing. She states that she was not sure if she pulled a muscle but denies any injury. She denies any shortness of breath, leg swelling, calf pain, fever, vomiting, diarrhea, cough, hemoptysis. Past medical history of CHF, COPD, hypertension, asthma, arthritis, DM, GERD, multiple intubations. Vitals are stable. On exam:mild ttp to the right thenar emminence, FROM of the RUE, mild discomfort with full flexion of the right shoulder, no deformity, no edema, no ecchymosis, no skin changes, neurovascularly intact, breath sounds are clear bilaterally, no wheezing, no rales, no rhonchi. Oxygen saturation is 100% on room air. EKG is within normal limits. Labs are normal. Troponin is negative. Chest x-ray with no acute process. Patient has had no acute trauma, no clinical signs of acute traumatic fracture or dislocation of the upper extremity on exam. Patient will be referred to orthopedic doctor. Patient has no clinical signs of acute asthma exacerbation, breath sounds are clear bilaterally, x-ray without any signs of infiltrates. Patient is low risk based on Wells criteria for PE, PE unlikely. Discussed the importance of outpatient follow-up. Advised patient Please take medication as prescribed. Follow-up with a primary care doctor. Follow-up with an orthopedic doctor. Return to emergency room for any new or worsening symptoms. Critical care attestation.: If time is entered above; I have spent that time in minutes in the direct care of this critically ill patient, excluding procedure time. ED Disposition Clinical Impression: Right hand pain, Chest tightness Right shoulder pain Qualifiers: Chronicity: acute Qualified Code(s): M25.511 - Pain in right shoulder Disposition: HOME / SELF CARE / HOMELESS Is pt being admited?: No Does the pt Need Aspirin: No Condition: Stable Instructions: Osteoarthritis, Nonspecific Chest Pain, Adult, [id number] Additional Instructions: Please take medication as prescribed. Follow-up with a primary care doctor. Follow-up with an orthopedic doctor. Return to emergency room for any new or worsening symptoms. Prescriptions: Meloxicam [Mobic] 7.5 mg PO QDAY PRN #12 tablet PRN Reason: pain methOCARBAMOL [Robaxin TAB] 500 mg PO BID PRN #14 tab PRN Reason: muscle spasm/pain Referrals: RON BAUMANN MD [Primary Care Provider] - 3-5 Days ROOSEVELT HUITRON MD [Staff Physician] - 3-5 Days Forms: Work/School Release Form(ED) Time of Disposition: 14:53 Print Language: JAPANESE
[2021-02-23 14:22] LABS: Basophils # (Auto) 0.1 K/mm3 (0.0-0.1); Basophils % (Auto) 1.6 % (0.0-1.8); Eosinophils # (Auto) 0.2 K/mm3 (0.0-0.4); Eosinophils % (Auto) 4.3 % (0.0-4.3); Hematocrit 33.5 % (30.3-42.9); Hemoglobin 10.9 gm/dl (10.1-14.3); Lymphocytes # (Auto) 1.7 K/mm3 (1.2-5.4); Lymphocytes % (Auto) 40.8 % (13.4-35.0); Mean Corpuscular HGB Conc 32 % (30-34); Mean Corpuscular Volume 87 fl (79-97); Monocytes # (Auto) 0.4 K/mm3 (0.0-0.8); Monocytes % (Auto) 8.9 % (0.0-7.3); Platelet Count 255 K/mm3 (140-440); Red Blood Count 3.87 M/mm3 (3.65-5.03); Red Cell Distribution Width 14.7 % (13.2-15.2)
[2021-02-23 14:27] LABS: Alanine Aminotransferase 16 units/L (7-56); Blood Urea Nitrogen 8 mg/dL (7-17); Calcium 8.8 mg/dL (8.4-10.2); Hemolysis Index 13
[2021-02-23 14:57] LABS: BUN/Creatinine Ratio 11
[2021-02-23 15:33] VITALS: BP 148/77
--- NOTE | 2021-02-23 17:49 | Electrocardiograph Report ---
[facility] Test Date: 2021-02-23 Test Time: 13:17:51 Pat Name: EDIE RENDON Department: Room: Gender: F Graphics Editor: SERGEY : 1965 Requested By: DIONICIO JOHNSON Order Number: [id number] Reading MD: Niles Stokes Measurements Intervals [place] Rate: 69 P: 57 MN: 199 QRS: 32 QRSD: 98 T: 31 QT: 451 QTc: 483 Interpretive Statements Sinus rhythm Baseline artifact, otherwise normal ECG Compared to ECG 02/05/2021 11:36:55 No significant change Electronically Signed On 02-23-2021 17:49:12 EST by Niles Stokes
== END 2021-02-23 15:41 | disposition home or self-care (01) ==
LOC: ED 12:16
DX: M25.511 Pain in right shoulder (principal); R07.89 Other chest pain; M79.641 Pain in right hand; J44.9 Chronic obstructive pulmonary disease, unspecified; I10 Essential (primary) hypertension; M19.90 Unspecified osteoarthritis, unspecified site; Z88.1 Allergy status to other antibiotic agents; Z88.0 Allergy status to penicillin; Z91.013 Allergy to seafood; Z91.010 Allergy to peanuts
CPT/HCPCS: 36415; 71046; 80053; 84484; 85025; 93005

== ENCOUNTER 2021-03-05 07:14 | Emergency (ER) | payer MEDICARE ==
[2021-03-05 07:22] VITALS: BP 135/84
--- NOTE | 2021-03-05 07:50 | Emergency Department Report ---
ED General Adult HPI - General Chief complaint: Adult Asthma Stated complaint: ASTHMA Time Seen by Provider: 03/05/21 07:24 Source: patient Mode of arrival: Ambulatory Limitations: No Limitations - History of Present Illness Initial comments: 55-year-old female with a past medical history of asthma, CHF, A. fib, hypertension, diabetes and anxiety disorder presents to the ER today with complaints of 11 asthma with panic attack this morning. Patient states that when she woke up this morning she felt like she was ill about to have a panic attack or asthma attack as she started to feel tightness in her chest and felt like she had to take really deep breath. She states that she decided to do her breathing treatments, and after doing 2 breathing treatments she felt like she was becoming more "panicky" and called her son and told her son to bring her to the hospital. She states that she still feels like there is a little tightness in the chest but not as bad as when she first woke up this morning. She denies any cough or wheezing. She states that she is elevated with nasal congestion but no other URI symptoms. She denies any fever or chills. She denies any nausea, vomiting, abdominal pain or lower extremity swelling. He states she has nothing at home for anxiety. She has received Covid vaccines this year as well as Pneumovax and flu vaccines this year. She denies any apparent ill contacts. She states that she was admitted here from December through January 2021 for asthma/pneumonia and was intubated and so she states that the symptoms started this morning she got scared and did not want to get as sick as she was when she was admitted and so decided to come to the ER. Reviewed patient past visit: Patient was admitted from January 14, 2021 through 01/20/2021 for respiratory failure/asthma exacerbation requiring intubation. Complaint: Anxiety attack vs Asthma -: This morning - Related Data Home Medications Medication Instructions Recorded Confirmed Last Taken ALBUTEROL NEB's [Proventil 0.083% 1 vial INHALATION QID PRN 01/19/21 01/19/21 Unknown NEBS] Bimatoprost 0.01%(Nf) 1 drop OU QHS 01/19/21 01/19/21 Unknown Furosemide [Lasix TAB] 20 mg PO QDAY 01/19/21 01/19/21 Unknown Glimepiride [Amaryl] 4 mg PO QDAY 01/19/21 01/19/21 Unknown Loratadine 10 mg PO QDAY 01/19/21 01/19/21 Unknown lisinopriL [Zestril TAB] 40 mg PO QDAY 01/19/21 01/19/21 Unknown Previous Rx's Medication Instructions Recorded Last Taken Type Montelukast [Singulair] 10 mg PO QHS #30 tablet 01/06/20 01/09/21 Rx Albuterol Mdi (or & Nicu Only) 2 puff IH QID PRN #1 inhalation 03/08/20 12/24/20 Rx [ProAir HFA Inhaler] Metoprolol [Lopressor TAB] 25 mg PO Q8HR #90 tablet 08/19/20 Unknown Rx Apixaban [Eliquis] 5 mg PO Q12HR 90 Days tablet 01/20/21 Unknown Rx Budesonide [Pulmicort Respules] 0.5 mg IH Q12HRT 90 Days nebu 01/20/21 Unknown Rx Meloxicam [Mobic] 7.5 mg PO QDAY PRN #12 tablet 02/23/21 Unknown Rx methOCARBAMOL [Robaxin TAB] 500 mg PO BID PRN #14 tab 02/23/21 Unknown Rx Arformoterol Nebu [Brovana Nebu] 15 mcg IH Q12HRT 90 Days ml 03/05/21 Unknown Rx Fluticasone/Umeclidin/Vilanter 1 each IH DAILY #1 blst.w.dev 03/05/21 Unknown Rx [Trelegy Ellipta 200-62.5-25] Prednisone [predniSONE 10 mg 10 mg PO .TAPER #1 tab.ds.pk 03/05/21 Unknown Rx (6-Day Pack, 21 Tabs)] hydrOXYzine HCL [Atarax] 25 mg PO Q6HR PRN #12 tablet 03/05/21 Unknown Rx Allergies Allergy/AdvReac Type Severity Reaction Status Date / Time amoxicillin Allergy Anaphylaxis Verified 03/05/21 07:19 Penicillins Allergy Rash Verified 03/05/21 07:19 seafood Allergy Severe Anaphylaxis Uncoded 03/16/17 01:08 peanuts Allergy Anaphylaxis Uncoded 09/20/19 12:06 ED Review of Systems ROS: Stated complaint: ASTHMA Other details as noted in HPI ED Past Medical Hx - Past Medical History Hx Hypertension: Yes Hx Heart Attack/AMI: No Hx Congestive Heart Failure: Yes Hx Diabetes: Yes Hx Pulmonary Embolism: No Hx GERD: Yes Hx Liver Disease: No Hx Renal Disease: No Hx Sickle Cell Disease: No Hx Arthritis: Yes Hx Headaches / Migraines: No Hx Seizures: No Hx Kidney Stones: No Hx Psychiatric Treatment: Yes (Anxiety) Hx Asthma: Yes Hx COPD: Yes Hx Tuberculosis: No Hx HIV: No Additional medical history: Intubated x 9. heart murmur. osteoporosis. hearing loss in [place] - Surgical History Hx Coronary Stent: No Hx Open Heart Surgery: No Hx Pacemaker: No Hx Internal Defibrillator: No Hx Cholecystectomy: No Hx Appendectomy: No Hx Breast Surgery: No Additional Surgical History: cataracts, nasal surg, tubal ligation. bilateral foot. Left shoulder surgery, R. knee sx / EYE SURGERY - Social History Smoking Status: Never Smoker - Medications Home Medications: Home Medications Medication Instructions Recorded Confirmed Last Taken Type Montelukast [Singulair] 10 mg PO QHS #30 tablet 01/06/20 01/19/21 01/09/21 Rx Albuterol Mdi (or & Nicu Only) 2 puff IH QID PRN #1 inhalation 03/08/20 01/19/21 12/24/20 Rx [ProAir HFA Inhaler] Metoprolol [Lopressor TAB] 25 mg PO Q8HR #90 tablet 08/19/20 01/19/21 Unknown Rx ALBUTEROL NEB's [Proventil 0.083% 1 vial INHALATION QID PRN 01/19/21 01/19/21 Unknown History NEBS] Bimatoprost 0.01%(Nf) 1 drop OU QHS 01/19/21 01/19/21 Unknown History Furosemide [Lasix TAB] 20 mg PO QDAY 01/19/21 01/19/21 Unknown History Glimepiride [Amaryl] 4 mg PO QDAY 01/19/21 01/19/21 Unknown History Loratadine 10 mg PO QDAY 01/19/21 01/19/21 Unknown History lisinopriL [Zestril TAB] 40 mg PO QDAY 01/19/21 01/19/21 Unknown History Apixaban [Eliquis] 5 mg PO Q12HR 90 Days tablet 01/20/21 Unknown Rx Budesonide [Pulmicort Respules] 0.5 mg IH Q12HRT 90 Days nebu 01/20/21 Unknown Rx Meloxicam [Mobic] 7.5 mg PO QDAY PRN #12 tablet 02/23/21 Unknown Rx methOCARBAMOL [Robaxin TAB] 500 mg PO BID PRN #14 tab 02/23/21 Unknown Rx Arformoterol Nebu [Brovana Nebu] 15 mcg IH Q12HRT 90 Days ml 03/05/21 Unknown Rx Fluticasone/Umeclidin/Vilanter 1 each IH DAILY #1 blst.w.dev 03/05/21 Unknown Rx [Trelegy Ellipta 200-62.5-25] Prednisone [predniSONE 10 mg 10 mg PO .TAPER #1 tab.ds.pk 03/05/21 Unknown Rx (6-Day Pack, 21 Tabs)] hydrOXYzine HCL [Atarax] 25 mg PO Q6HR PRN #12 tablet 03/05/21 Unknown Rx ED Physical Exam - General Limitations: No Limitations ED Course Vital Signs 03/05/21 03/05/21 07:21 09:27 Temperature 98.2 F Pulse Rate 72 85 Respiratory 20 18 Rate Blood Pressure 135/84 O2 Sat by Pulse 98 98 Oximetry ED Medical Decision Making - Radiology Data Radiology results: report reviewed Patient Name: EDIE RENDON Gender: Female Date of : 1965 Referring Provider: LESIA BLANCO Organization: [facility] Accession Number: [id number] Requested Date: March 05, 2021 07:50 Report Status: Final Requested Procedure: 1 Procedure Description: XR chest routine 2V Modality: XR Findings Reporting MD: Blanco Guevara Dictation Time: March 05, 2021 07:58 Heading Machine Operator: Not available Home Health Lvn Date: CHEST 2 VIEWS INDICATION / CLINICAL INFORMATION: difficulty breathing. COMPARISON: 02/23/2021 FINDINGS: SUPPORT DEVICES: None. HEART / MEDIASTINUM: No significant abnormality. LUNGS / PLEURA: No significant pulmonary or pleural abnormality. No pneumothorax. ADDITIONAL FINDINGS: No significant additional findings. IMPRESSION: 1. No acute findings. Signer Name: Blanco Guevara MD Signed: 03/05/2021 7:58 AM Workstation Name: [id number] - Medical Decision Making Cxr shows nothing acute pt is not in any pain or respiratory distress. She speaking in full sentences and her chest exam unremarkable. Patient is well-appearing, nontoxic and neurologically intact with a normal gait. Her vital signs were reviewed, she is not hypoxic, tachycardic, tachypneic or febrile. Her blood pressure is normal. Her symptoms could be related to mild asthma flare combined with panic attack/anxiety reaction. Discussed x-ray results with patient. At this time there is no indication for emergent tx, additional testing or admission to hospital. Patient does have a history of diabetes, but reviewed her past labs, and diabetes and the lipid to be severe in place she is on insulin and so patient will be given prednisone taper (per discussion with Dr Carmen Marshall). She requested a refill on her new inhaler which is an inhaled steroid, and informed her to not using he will start while she is taking the prednisone taper but restarted when she is done. Patient instructed to follow-up with her cash applications manager as well as her PCP. Patient expressed understanding of all instructions and agree with plan. Patient was stable at time of discharge. Critical care attestation.: If time is entered above; I have spent that time in minutes in the direct care of this critically ill patient, excluding procedure time. ED Disposition Clinical Impression: Panic attack, Asthma Disposition: 01 HOME / SELF CARE / HOMELESS Is pt being admited?: No Does the pt Need Aspirin: No Condition: Stable Instructions: Asthma, Adult, Panic Attack, [id number], Managing Anxiety, Adult, Asthma (ED) Additional Instructions: I recommend that you continue to use your nebulizer every 4 hrs as needed. TAke the prednisone taper as prescribed. Take the atarax as prescribed and as needed if you feel anxious or panicky. You may also want to consider talking to your primary care doctor about your anxiety. Continue to follow-up with your cash applications manager. Return to the ER if your symptoms changes or worsens in any way. Prescriptions: hydrOXYzine HCL [Atarax] 25 mg PO Q6HR PRN #12 tablet PRN Reason: Anxiety Arformoterol Nebu [Brovana Nebu] 15 mcg IH Q12HRT 90 Days ml Prednisone [predniSONE 10 mg (6-Day Pack, 21 Tabs)] 10 mg PO .TAPER #1 tab.ds.pk Fluticasone/Umeclidin/Vilanter [Trelegy Ellipta 200-62.5-25] 1 each IH DAILY #1 blst.w.dev Referrals: ALAINA PRUETT MD [Staff Physician] - 3-5 Days [facility] [Provider Group] - 3-5 Days Forms: Work/School Release Form(ED) Time of Disposition: 09:12
--- NOTE | 2021-03-05 09:03 | XRay Report ---
CHEST 2 VIEWS INDICATION / CLINICAL INFORMATION: difficulty breathing. COMPARISON: 02/23/2021 FINDINGS: SUPPORT DEVICES: None. HEART / MEDIASTINUM: No significant abnormality. LUNGS / PLEURA: No significant pulmonary or pleural abnormality. No pneumothorax. ADDITIONAL FINDINGS: No significant additional findings. IMPRESSION: 1. No acute findings. Signer Name: Blanco Guevara MD Signed: 03/05/2021 8:58 AM Workstation Name: [id number]
[2021-03-05] MEDS ORDERED: hydrOXYzine HCL 25 MG TAB PO ONE (09:17)
== END 2021-03-05 09:27 | disposition home or self-care (01) ==
LOC: ED 07:14
DX: F41.0 Panic disorder [episodic paroxysmal anxiety] (principal); J45.909 Unspecified asthma, uncomplicated; I10 Essential (primary) hypertension; E11.8 Type 2 diabetes mellitus with unspecified complications; Z88.0 Allergy status to penicillin; Z91.013 Allergy to seafood; Z91.010 Allergy to peanuts
CPT/HCPCS: 71046; 99283; Q0177

== ENCOUNTER 2021-03-17 10:39 | Emergency (ER) | payer MEDICARE ==
--- NOTE | 2021-03-17 11:55 | Emergency Department Report ---
- General Chief Complaint: Abdominal Pain Stated Complaint: FLU LIKE SYMPTOMS Time Seen by Provider: 03/17/21 10:57 Source: patient Mode of arrival: Ambulatory Limitations: No Limitations - History of Present Illness Initial Comments: This is a 55-year-old female nontoxic, well nourished in appearance, no acute signs of distress presents to the ED with c/o of productive cough, sinus pressure, rhinorrhea, nasal congestion x several days. Patient describes productive cough as yellow mucus production. Patient agrees to sick contact with grandkids. Patient denies any recent travels, long car, recent hospital stays. Patient denies any calf pain or calf tenderness. Stated has some abdominal pains cramping yesterday but has resolved. Denies any abdominal pains. Patient denies any chest pain, short of breath, fever, chills, nausea, vomiting, hemoptysis, numbness, tingling, headache or stiff neck. Patient stated she is fully vaccinated with Covid. Allergies include penicillin. MD Complaint: cough, rhinorrhea, nasal congestion, sinus pain -: days(s) Severity: mild Severity scale (0 -10): 3 Quality: aching Consistency: constant Improves With: nothing Worsens With: nothing Associated Symptoms: rhinorrhea, nasal congestion, cough. denies: fever, chills, myalgias, diaphoresis, headache, sore throat, stiff neck, chest pain, shortness of breath, abdominal pain, nausea, vomiting, diarrhea, dysuria, rash, confusion, right sweats, weight loss, epistaxis, hoarseness, ear pain Treatments Prior to Arrival: none - Related Data Home Medications Medication Instructions Recorded Confirmed Last Taken ALBUTEROL NEB's [Proventil 0.083% 1 vial INHALATION QID PRN 01/19/21 01/19/21 Unknown NEBS] Bimatoprost 0.01%(Nf) 1 drop OU QHS 01/19/21 01/19/21 Unknown Furosemide [Lasix TAB] 20 mg PO QDAY 01/19/21 01/19/21 Unknown Glimepiride [Amaryl] 4 mg PO QDAY 01/19/21 01/19/21 Unknown Loratadine 10 mg PO QDAY 01/19/21 01/19/21 Unknown lisinopriL [Zestril TAB] 40 mg PO QDAY 01/19/21 01/19/21 Unknown Previous Rx's Medication Instructions Recorded Last Taken Type Montelukast [Singulair] 10 mg PO QHS #30 tablet 01/06/20 01/09/21 Rx Albuterol Mdi (or & Nicu Only) 2 puff IH QID PRN #1 inhalation 03/08/20 12/24/20 Rx [ProAir HFA Inhaler] Metoprolol [Lopressor TAB] 25 mg PO Q8HR #90 tablet 08/19/20 Unknown Rx Apixaban [Eliquis] 5 mg PO Q12HR 90 Days tablet 01/20/21 Unknown Rx Budesonide [Pulmicort Respules] 0.5 mg IH Q12HRT 90 Days nebu 01/20/21 Unknown Rx Meloxicam [Mobic] 7.5 mg PO QDAY PRN #12 tablet 02/23/21 Unknown Rx methOCARBAMOL [Robaxin TAB] 500 mg PO BID PRN #14 tab 02/23/21 Unknown Rx Arformoterol Nebu [Brovana Nebu] 15 mcg IH Q12HRT 90 Days ml 03/05/21 Unknown Rx Fluticasone/Umeclidin/Vilanter 1 each IH DAILY #1 blst.w.dev 03/05/21 Unknown Rx [Trelegy Ellipta 200-62.5-25] Prednisone [predniSONE 10 mg 10 mg PO .TAPER #1 tab.ds.pk 03/05/21 Unknown Rx (6-Day Pack, 21 Tabs)] hydrOXYzine HCL [Atarax] 25 mg PO Q6HR PRN #12 tablet 03/05/21 Unknown Rx Azithromycin [Zithromax Z-BAKARI] 250 mg PO DAILY #6 tablet 03/17/21 Unknown Rx Benzonatate [Tessalon Perles] 100 mg PO Q8HR PRN #12 capsule 03/17/21 Unknown Rx Allergies Allergy/AdvReac Type Severity Reaction Status Date / Time amoxicillin Allergy Anaphylaxis Verified 03/05/21 07:19 Penicillins Allergy Rash Verified 03/05/21 07:19 seafood Allergy Severe Anaphylaxis Uncoded 03/16/17 01:08 peanuts Allergy Anaphylaxis Uncoded 09/20/19 12:06 ED Review of Systems ROS: Stated complaint: FLU LIKE SYMPTOMS Other details as noted in HPI Comment: All other systems reviewed and negative Constitutional: denies: chills, fever Eyes: denies: eye pain, eye discharge, vision change ENT: congestion. denies: ear pain, throat pain Respiratory: cough. denies: shortness of breath, wheezing Cardiovascular: denies: chest pain, palpitations Endocrine: no symptoms reported Gastrointestinal: denies: abdominal pain, nausea, diarrhea Genitourinary: denies: urgency, dysuria, discharge Musculoskeletal: denies: back pain, joint swelling, arthralgia Skin: denies: rash, lesions Neurological: denies: headache, weakness, paresthesias Psychiatric: denies: anxiety, depression Hematological/Lymphatic: denies: easy bleeding, easy bruising ED Past Medical Hx - Past Medical History Previous Medical History?: Yes Hx Hypertension: Yes Hx Heart Attack/AMI: No Hx Congestive Heart Failure: Yes Hx Diabetes: Yes Hx Pulmonary Embolism: No Hx GERD: Yes Hx Liver Disease: No Hx Renal Disease: No Hx Sickle Cell Disease: No Hx Arthritis: Yes Hx Headaches / Migraines: No Hx Seizures: No Hx Kidney Stones: No Hx Psychiatric Treatment: Yes (Anxiety) Hx Asthma: Yes Hx COPD: Yes Hx Tuberculosis: No Hx HIV: No Additional medical history: Intubated x 9. heart murmur. osteoporosis. hearing loss in [place] - Surgical History Past Surgical History?: Yes Hx Coronary Stent: No Hx Open Heart Surgery: No Hx Pacemaker: No Hx Internal Defibrillator: No Hx Cholecystectomy: No Hx Appendectomy: No Hx Breast Surgery: No Additional Surgical History: cataracts, nasal surg, tubal ligation. bilateral foot. Left shoulder surgery, R. knee sx / EYE SURGERY - Social History Smoking Status: Never Smoker - Medications Home Medications: Home Medications Medication Instructions Recorded Confirmed Last Taken Type Montelukast [Singulair] 10 mg PO QHS #30 tablet 01/06/20 01/19/21 01/09/21 Rx Albuterol Mdi (or & Nicu Only) 2 puff IH QID PRN #1 inhalation 03/08/20 01/19/21 12/24/20 Rx [ProAir HFA Inhaler] Metoprolol [Lopressor TAB] 25 mg PO Q8HR #90 tablet 08/19/20 01/19/21 Unknown Rx ALBUTEROL NEB's [Proventil 0.083% 1 vial INHALATION QID PRN 01/19/21 01/19/21 Unknown History NEBS] Bimatoprost 0.01%(Nf) 1 drop OU QHS 01/19/21 01/19/21 Unknown History Furosemide [Lasix TAB] 20 mg PO QDAY 01/19/21 01/19/21 Unknown History Glimepiride [Amaryl] 4 mg PO QDAY 01/19/21 01/19/21 Unknown History Loratadine 10 mg PO QDAY 01/19/21 01/19/21 Unknown History lisinopriL [Zestril TAB] 40 mg PO QDAY 01/19/21 01/19/21 Unknown History Apixaban [Eliquis] 5 mg PO Q12HR 90 Days tablet 01/20/21 Unknown Rx Budesonide [Pulmicort Respules] 0.5 mg IH Q12HRT 90 Days nebu 01/20/21 Unknown Rx Meloxicam [Mobic] 7.5 mg PO QDAY PRN #12 tablet 02/23/21 Unknown Rx methOCARBAMOL [Robaxin TAB] 500 mg PO BID PRN #14 tab 02/23/21 Unknown Rx Arformoterol Nebu [Brovana Nebu] 15 mcg IH Q12HRT 90 Days ml 03/05/21 Unknown Rx Fluticasone/Umeclidin/Vilanter 1 each IH DAILY #1 blst.w.dev 03/05/21 Unknown Rx [Trelegy Ellipta 200-62.5-25] Prednisone [predniSONE 10 mg 10 mg PO .TAPER #1 tab.ds.pk 03/05/21 Unknown Rx (6-Day Pack, 21 Tabs)] hydrOXYzine HCL [Atarax] 25 mg PO Q6HR PRN #12 tablet 03/05/21 Unknown Rx Azithromycin [Zithromax Z-BAKARI] 250 mg PO DAILY #6 tablet 03/17/21 Unknown Rx Benzonatate [Tessalon Perles] 100 mg PO Q8HR PRN #12 capsule 03/17/21 Unknown Rx ED Physical Exam - General Limitations: No Limitations General appearance: alert, in no apparent distress - Head Head exam: Present: atraumatic, normocephalic - Eye Eye exam: Present: normal appearance - ENT ENT exam: Present: normal exam, normal orophraynx - Neck Neck exam: Present: normal inspection, full ROM. Absent: lymphadenopathy - Respiratory Respiratory exam: Present: normal lung sounds bilaterally. Absent: respiratory distress, wheezes, rales, rhonchi, stridor, chest wall tenderness, accessory muscle use, decreased breath sounds, prolonged expiratory - Cardiovascular Cardiovascular Exam: Present: regular rate, normal rhythm, normal heart sounds. Absent: bradycardia, tachycardia, irregular rhythm, systolic murmur, diastolic murmur, rubs, gallop - GI/Abdominal GI/Abdominal exam: Present: soft, normal bowel sounds. Absent: distended, tenderness, guarding, rebound, rigid, diminished bowel sounds - Extremities Exam Extremities exam: Present: full ROM - Back Exam Back exam: Present: normal inspection, full ROM. Absent: tenderness, CVA tenderness (R), CVA tenderness (L), muscle spasm, paraspinal tenderness, vertebral tenderness, rash noted - Neurological Exam Neurological exam: Present: alert, oriented X3, normal gait - Psychiatric Psychiatric exam: Present: normal affect, normal mood - Skin Skin exam: Present: warm, dry, intact, normal color. Absent: rash - Other Other exam information: Frontal sinus tenderness noted on exam. ED Course Vital Signs 03/17/21 10:59 Temperature 98.2 F Pulse Rate 74 Respiratory 17 Rate Blood Pressure 129/88 [Right] O2 Sat by Pulse 98 Oximetry - Reevaluation(s) Reevaluation #1: 03/17/21 11:57 Patient is speaking in full sentences with no signs of distress noted. ED Medical Decision Making - Radiology Data [facility] [address] [place] [address] XRay Report Signed Patient: EDIE RENDON MR#: [id number] : 1965 Acct:[id number] Age/Sex: 55 / F ADM Date: 03/17/21 Loc: ED Attending Dr: Ordering Physician: HODAN GONZALEZ NP Date of Service: 03/17/21 Procedure(s): XR chest routine 2V Accession Number(s): [id number] cc: HODAN GONZALEZ NP Fluoro Time In Minutes: CHEST 2 VIEWS INDICATION / CLINICAL INFORMATION: cough STUDY TIME: 1201 COMPARISON: 03/05/2021 FINDINGS: SUPPORT DEVICES: None. HEART / MEDIASTINUM: No significant abnormality. LUNGS / PLEURA: No significant acute pulmonary or pleural abnormality. No pneumothorax. ADDITIONAL FINDINGS: No significant additional findings. Signer Name: Addi Desir MD Signed: 03/17/2021 12:25 PM Workstation Name: [id number] Transcribed By: LINH Dictated By: Addi Desir MD Electronically Authenticated By: Addi Desir MD Signed Date/Time: 03/17/211224 DD/ 23 TD/TT: - Medical Decision Making This is a 55-year-old female that presents with viral respiratory infection and sinusitis. Patient is stable and was examined by me. Chest x-ray has been obtained and dictated by radiologist with normal exam. Patient is notified of x-ray results with no questions noted. Patient be discharged with Z-Bakari. Patient was instructed to increase hydration, rest and take Motrin for fever episodes. Vitals stable. Patient is nonfebrile and normal heart rate. Patient was instructed Follow-up with a primary care doctor in 3-5 days or if symptoms worsen and continue return to emergency room as soon as possible. At time time of discharge, the patient does not seem toxic or ill in appearance. No acute signs of distress noted. Patient agrees to discharge treatment plan of care. No further questions noted by the patient.nt. Critical care attestation.: If time is entered above; I have spent that time in minutes in the direct care of this critically ill patient, excluding procedure time. ED Disposition Clinical Impression: Viral respiratory illness Sinusitis Qualifiers: Sinusitis location: frontal Chronicity: acute Recurrence: non-recurrent Qualified Code(s): J01.10 - Acute frontal sinusitis, unspecified Disposition: HOME / SELF CARE / HOMELESS Is pt being admited?: No Does the pt Need Aspirin: No Condition: Stable Instructions: Abdominal Pain (ED), Viral Respiratory Infection, [id number], Sinusitis, Adult, [id number] Additional Instructions: Follow-up with a primary care doctor in 3-5 days or if symptoms worsen and continue return to emergency room as soon as possible. Your symptoms appear most consistent with a nonspecific viral syndrome. However, given this current pandemic, COVID-19 is in the differential of possibilities. Despite your previous negative COVID-19 test, I do recommend repeat outpatient Covid 19 testing. In the meantime, isolate/quarantine yourself and stay away from anyone who is elderly, immunocompromised or chronically ill. Please see your nearest health department or primary care doctor that you are referred to for COVID testing. Increased rest, hydration, and take [id number] Tylenol as directed from instructions label for pain/fever episode. Prescriptions: Benzonatate [Tessalon Perles] 100 mg PO Q8HR PRN #12 capsule PRN Reason: Cough Azithromycin [Zithromax Z-BAKARI] 250 mg PO DAILY #6 tablet Referrals: PRIMARY MD KENNY [Primary Care Provider] - 3-5 Days ALAINA PRUETT MD [Staff Physician] - 3-5 Days Forms: Work/School Release Form(ED) Time of Disposition: 12:51
--- NOTE | 2021-03-17 12:31 | XRay Report ---
CHEST 2 VIEWS INDICATION / CLINICAL INFORMATION: cough STUDY TIME: 1201 COMPARISON: 03/05/2021 FINDINGS: SUPPORT DEVICES: None. HEART / MEDIASTINUM: No significant abnormality. LUNGS / PLEURA: No significant acute pulmonary or pleural abnormality. No pneumothorax. ADDITIONAL FINDINGS: No significant additional findings. Signer Name: Addi Desir MD Signed: 03/17/2021 12:25 PM Workstation Name: [id number]
[2021-03-17 13:55] VITALS: BP 126/80
== END 2021-03-17 13:53 | disposition home or self-care (01) ==
LOC: ED 10:39
DX: J06.9 Acute upper respiratory infection, unspecified (principal); J01.10 Acute frontal sinusitis, unspecified; I10 Essential (primary) hypertension; E11.8 Type 2 diabetes mellitus with unspecified complications; Z86.79 Personal history of other diseases of the circulatory system; Z88.0 Allergy status to penicillin; Z91.013 Allergy to seafood; Z91.010 Allergy to peanuts
CPT/HCPCS: 71046; 99283

== ENCOUNTER 2021-03-19 15:04 | Outpatient (CLI) | payer MEDICARE ==
[2021-03-19 15:51] LABS: Protein/Creatinine Ratio,Urine 0.07
[2021-03-19 15:58] LABS: Alanine Aminotransferase 13 units/L (7-56); Albumin 4.1 g/dL (3.9-5); BUN/Creatinine Ratio 16; Blood Urea Nitrogen 13 mg/dL (7-17); Hemolysis Index 7
[2021-03-19 16:02] LABS: Basophils # (Auto) 0.1 K/mm3 (0.0-0.1); Basophils % (Auto) 1.2 % (0.0-1.8); Eosinophils # (Auto) 0.2 K/mm3 (0.0-0.4); Hematocrit 36.9 % (30.3-42.9); Hemoglobin 11.9 gm/dl (10.1-14.3); Lymphocytes # (Auto) 2.7 K/mm3 (1.2-5.4); Lymphocytes % (Auto) 46.3 % (13.4-35.0); Mean Corpuscular HGB Conc 32 % (30-34); Mean Corpuscular Volume 88 fl (79-97); Monocytes # (Auto) 0.5 K/mm3 (0.0-0.8); Monocytes % (Auto) 9.3 % (0.0-7.3); Platelet Count 255 K/mm3 (140-440); Red Blood Count 4.21 M/mm3 (3.65-5.03); Red Cell Distribution Width 14.4 % (13.2-15.2)
== END 2021-03-19 15:05 | disposition home or self-care (01) ==
LOC: LAB 15:04
PROVIDERS: ATTEND Internal Medicine
DX: R94.4 Abnormal results of kidney function studies (principal)
CPT/HCPCS: 36415; 80053; 82570; 84156; 85025

== ENCOUNTER 2021-03-25 14:43 | Emergency (ER) | payer MEDICARE ==
[2021-03-25 14:51] VITALS: BP 134/80
--- NOTE | 2021-03-25 15:58 | Vascular Lab Report ---
DUPLEX DOPPLER LOWER EXTREMITY VEINS, LEFT INDICATION / CLINICAL INFORMATION: left leg pain. TECHNIQUE: Duplex doppler imaging was performed through the veins of the left lower extremity using venous compr ession and other maneuvers. COMPARISON: None available. FINDINGS: LEFT COMMON FEMORAL VEIN: Negative. LEFT FEMORAL VEIN: Negative. LEFT POPLITEAL VEIN: Negative. LEFT CALF VEINS: Negative. ADDITIONAL FINDINGS: None. IMPRESSION: 1. No sonographic evidence for DVT in the left lower extremity. Signer Name: David Mcfadden MD Signed: 03/25/2021 3:54 PM Workstation Name: [id number]
--- NOTE | 2021-03-25 16:21 | XRay Report ---
CHEST 2 VIEWS INDICATION / CLINICAL INFORMATION: Chest Pain. COMPARISON: March 17, 2021 FINDINGS: SUPPORT DEVICES: None. HEART / MEDIASTINUM: No significant abnormality. LUNGS / PLEURA: No significant pulmonary or pleural abnormality. No pneumothorax. ADDITIONAL FINDINGS: No significant additional findings. IMPRESSION: 1. No acute findings. Signer Name: Blanco Guevara MD Signed: 03/25/2021 4:16 PM Workstation Name: [email or web address]
[2021-03-25 16:26] LABS: Basophils % (Auto) 0.6 % (0.0-1.8); Eosinophils % (Auto) 0.2 % (0.0-4.3); Hematocrit 34.8 % (30.3-42.9); Hemoglobin 11.3 gm/dl (10.1-14.3); Lymphocytes # (Auto) 1.1 K/mm3 (1.2-5.4); Lymphocytes % (Auto) 22.2 % (13.4-35.0); Mean Corpuscular HGB Conc 32 % (30-34); Mean Corpuscular Volume 87 fl (79-97); Monocytes # (Auto) 0.4 K/mm3 (0.0-0.8); Monocytes % (Auto) 9.1 % (0.0-7.3); Platelet Count 241 K/mm3 (140-440)
[2021-03-25 16:52] LABS: Alanine Aminotransferase 14 units/L (7-56); Albumin 4.2 g/dL (3.9-5); BUN/Creatinine Ratio 14; Blood Urea Nitrogen 11 mg/dL (7-17); Hemolysis Index 7
--- NOTE | 2021-03-25 16:52 | Emergency Department Report ---
ED General Adult HPI - General Chief complaint: Dyspnea/Respdistress Stated complaint: SOB Time Seen by Provider: 03/25/21 15:00 Source: patient Mode of arrival: Ambulatory Limitations: No Limitations - History of Present Illness Initial comments: Patient is a 55-year-old female presents emergency room complaints of left leg throbbing that began 2 days ago patient states that she recently started a part- time job and has to stand for long periods. She denies any fall or injury. Patient states that she is also been having some left-sided chest pressure and shortness of breath for 2 days he states that she feels like her anxiety is increasing. She reports that she was given something in the emergency room for anxiety which she states improved her symptoms but she states that she is out of the medication. She states that she has not followed up with her primary care doctor regarding anxiety. She denies any SI or HI. She denies any fever, c ough, vomiting, diarrhea, leg swelling, wheezing, hemoptysis past medical history of asthma, CHF, A. fib. Allergy to amoxicillin, penicillin. Severity scale (0 -10): 7 - Related Data Home Medications Medication Instructions Recorded Confirmed Last Taken ALBUTEROL NEB's [Proventil 0.083% 1 vial INHALATION QID PRN 01/19/21 01/19/21 Unknown NEBS] Bimatoprost 0.01%(Nf) 1 drop OU QHS 01/19/21 01/19/21 Unknown Furosemide [Lasix TAB] 20 mg PO QDAY 01/19/21 01/19/21 Unknown Glimepiride [Amaryl] 4 mg PO QDAY 01/19/21 01/19/21 Unknown Loratadine 10 mg PO QDAY 01/19/21 01/19/21 Unknown lisinopriL [Zestril TAB] 40 mg PO QDAY 01/19/21 01/19/21 Unknown Previous Rx's Medication Instructions Recorded Last Taken Type Montelukast [Singulair] 10 mg PO QHS #30 tablet 01/06/20 01/09/21 Rx Albuterol Mdi (or & Nicu Only) 2 puff IH QID PRN #1 inhalation 03/08/20 12/24/20 Rx [ProAir HFA Inhaler] Metoprolol [Lopressor TAB] 25 mg PO Q8HR #90 tablet 08/19/20 Unknown Rx Apixaban [Eliquis] 5 mg PO Q12HR 90 Days tablet 01/20/21 Unknown Rx Budesonide [Pulmicort Respules] 0.5 mg IH Q12HRT 90 Days nebu 01/20/21 Unknown Rx Meloxicam [Mobic] 7.5 mg PO QDAY PRN #12 tablet 02/23/21 Unknown Rx methOCARBAMOL [Robaxin TAB] 500 mg PO BID PRN #14 tab 02/23/21 Unknown Rx Arformoterol Nebu [Brovana Nebu] 15 mcg IH Q12HRT 90 Days ml 03/05/21 Unknown Rx Fluticasone/Umeclidin/Vilanter 1 each IH DAILY #1 blst.w.dev 03/05/21 Unknown Rx [Trelegy Ellipta 200-62.5-25] Prednisone [predniSONE 10 mg 10 mg PO .TAPER #1 tab.ds.pk 03/05/21 Unknown Rx (6-Day Pack, 21 Tabs)] hydrOXYzine HCL [Atarax] 25 mg PO Q6HR PRN #12 tablet 03/05/21 Unknown Rx Azithromycin [Zithromax Z-MERARY] 250 mg PO DAILY #6 tablet 03/17/21 Unknown Rx Benzonatate [Tessalon Perles] 100 mg PO Q8HR PRN #12 capsule 03/17/21 Unknown Rx Naproxen 375 mg PO BID PRN #20 tablet 03/25/21 Unknown Rx hydrOXYzine HCL [Atarax] 25 mg PO Q6HR PRN #14 tablet 03/25/21 Unknown Rx Allergies Allergy/AdvReac Type Severity Reaction Status Date / Time amoxicillin Allergy Anaphylaxis Verified 03/05/21 07:19 Penicillins Allergy Rash Verified 03/05/21 07:19 seafood Allergy Severe Anaphylaxis Uncoded 03/16/17 01:08 peanuts Allergy Anaphylaxis Uncoded 09/20/19 12:06 ED Review of Systems ROS: Stated complaint: SOB Other details as noted in HPI Comment: All other systems reviewed and negative ED Past Medical Hx - Past Medical History Hx Hypertension: Yes Hx Heart Attack/AMI: No Hx Congestive Heart Failure: Yes Hx Diabetes: Yes Hx Pulmonary Embolism: No Hx GERD: Yes Hx Liver Disease: No Hx Renal Disease: No Hx Sickle Cell Disease: No Hx Arthritis: Yes Hx Headaches / Migraines: No Hx Seizures: No Hx Kidney Stones: No Hx Psychiatric Treatment: Yes (Anxiety) Hx Asthma: Yes Hx COPD: Yes Hx Tuberculosis: No Hx HIV: No Additional medical history: Intubated x 9. heart murmur. osteoporosis. hearing loss in [place] - Surgical History Hx Coronary Stent: No Hx Open Heart Surgery: No Hx Pacemaker: No Hx Internal Defibrillator: No Hx Cholecystectomy: No Hx Appendectomy: No Hx Breast Surgery: No Additional Surgical History: cataracts, nasal surg, tubal ligation. bilateral foot. Left shoulder surgery, R. knee sx / EYE SURGERY - Social History Smoking Status: Never Smoker - Medications Home Medications: Home Medications Medication Instructions Recorded Confirmed Last Taken Type Montelukast [Singulair] 10 mg PO QHS #30 tablet 01/06/20 01/19/21 01/09/21 Rx Albuterol Mdi (or & Nicu Only) 2 puff IH QID PRN #1 inhalation 03/08/20 01/19/21 12/24/20 Rx [ProAir HFA Inhaler] Metoprolol [Lopressor TAB] 25 mg PO Q8HR #90 tablet 08/19/20 01/19/21 Unknown Rx ALBUTEROL NEB's [Proventil 0.083% 1 vial INHALATION QID PRN 01/19/21 01/19/21 Unknown History NEBS] Bimatoprost 0.01%(Nf) 1 drop OU QHS 01/19/21 01/19/21 Unknown History Furosemide [Lasix TAB] 20 mg PO QDAY 01/19/21 01/19/21 Unknown History Glimepiride [Amaryl] 4 mg PO QDAY 01/19/21 01/19/21 Unknown History Loratadine 10 mg PO QDAY 01/19/21 01/19/21 Unknown History lisinopriL [Zestril TAB] 40 mg PO QDAY 01/19/21 01/19/21 Unknown History Apixaban [Eliquis] 5 mg PO Q12HR 90 Days tablet 01/20/21 Unknown Rx Budesonide [Pulmicort Respules] 0.5 mg IH Q12HRT 90 Days nebu 01/20/21 Unknown Rx Meloxicam [Mobic] 7.5 mg PO QDAY PRN #12 tablet 02/23/21 Unknown Rx methOCARBAMOL [Robaxin TAB] 500 mg PO BID PRN #14 tab 02/23/21 Unknown Rx Arformoterol Nebu [Brovana Nebu] 15 mcg IH Q12HRT 90 Days ml 03/05/21 Unknown Rx Fluticasone/Umeclidin/Vilanter 1 each IH DAILY #1 blst.w.dev 03/05/21 Unknown Rx [Trelegy Ellipta 200-62.5-25] Prednisone [predniSONE 10 mg 10 mg PO .TAPER #1 tab.ds.pk 03/05/21 Unknown Rx (6-Day Pack, 21 Tabs)] hydrOXYzine HCL [Atarax] 25 mg PO Q6HR PRN #12 tablet 03/05/21 Unknown Rx Azithromycin [Zithromax Z-MERARY] 250 mg PO DAILY #6 tablet 03/17/21 Unknown Rx Benzonatate [Tessalon Perles] 100 mg PO Q8HR PRN #12 capsule 03/17/21 Unknown Rx Naproxen 375 mg PO BID PRN #20 tablet 03/25/21 Unknown Rx hydrOXYzine HCL [Atarax] 25 mg PO Q6HR PRN #14 tablet 03/25/21 Unknown Rx ED Physical Exam - General Limitations: No Limitations General appearance: alert, in no apparent distress - Head Head exam: Present: atraumatic, normocephalic - Eye Eye exam: Present: normal appearance - ENT ENT exam: Present: mucous membranes moist - Respiratory Respiratory exam: Present: normal lung sounds bilaterally. Absent: respiratory distress, wheezes, rales, rhonchi, stridor, chest wall tenderness, accessory muscle use, decreased breath sounds, prolonged expiratory - Cardiovascular Cardiovascular Exam: Present: regular rate, normal rhythm, normal heart sounds. Absent: systolic murmur, diastolic murmur, rubs, gallop - Extremities Exam Extremities exam: Present: other (mild ttp to the left lateral anterior dumont, mild calf ttp, no edema, no skin changes, no bony ttp, FROM, neurovascularly intact) - Neurological Exam Neurological exam: Present: alert, oriented X3 - Psychiatric Psychiatric exam: Present: normal affect, normal mood - Skin Skin exam: Present: warm, dry, intact ED Course Vital Signs 03/25/21 14:47 Temperature 98.4 F Pulse Rate 74 Respiratory 18 Rate Blood Pressure 134/80 [Right] O2 Sat by Pulse 97 Oximetry ED Medical Decision Making - Lab Data Result diagrams: 03/25/21 16:10 03/25/21 16:10 Lab Results 03/25/21 03/25/21 03/25/21 Range/Units 16:10 16:10 16:10 WBC 4.9 (4.5-11.0) K/mm3 RBC 4.00 (3.65-5.03) M/mm3 Hgb 11.3 (10.1-14.3) gm/dl Hct 34.8 (30.3-42.9) % MCV 87 (79-97) fl MCH 28 (28-32) pg MCHC 32 (30-34) % RDW 14.0 (13.2-15.2) % Plt Count 241 (140-440) K/mm3 Lymph % (Auto) 22.2 (13.4-35.0) % [place] % (Auto) 9.1 H (0.0-7.3) % Eos % (Auto) 0.2 (0.0-4.3) % Baso % (Auto) 0.6 (0.0-1.8) % Lymph # (Auto) 1.1 L (1.2-5.4) K/mm3 [place] # (Auto) 0.4 (0.0-0.8) K/mm3 Eos # (Auto) 0.0 (0.0-0.4) K/mm3 Baso # (Auto) 0.0 (0.0-0.1) K/mm3 Seg Neutrophils % 67.9 (40.0-70.0) % Seg Neutrophils # 3.3 (1.8-7.7) K/mm3 D-Dimer < 135.00 (0-234) ng/mlDDU Sodium 141 (137-145) mmol/L Potassium 4.3 (3.6-5.0) mmol/L Chloride 105.3 (98-107) mmol/L Carbon Dioxide 24 (22-30) mmol/L Anion Gap 16 mmol/L BUN 11 (7-17) mg/dL Creatinine 0.8 (0.6-1.2) mg/dL Estimated GFR > 60 ml/min BUN/Creatinine Ratio 14 % Glucose 113 H (65-100) mg/dL Calcium 9.0 (8.4-10.2) mg/dL Total Bilirubin < 0.20 (0.1-1.2) mg/dL AST 14 (5-40) units/L ALT 14 (7-56) units/L Alkaline Phosphatase 81 (35-129) units/L Troponin T < 0.010 (0.00-0.029) ng/mL NT-Pro-B Natriuret Pep 40.29 (0-900) pg/mL Total Protein 6.8 (6.3-8.2) g/dL Albumin 4.2 (3.9-5) g/dL Albumin/Globulin Ratio 1.6 % - EKG Data EKG shows normal: sinus rhythm, axis, intervals, QRS complexes Rate: normal - EKG Data 03/25/21 16:52 Nonspecific T wave changes No STEMI - Radiology Data Radiology results: report reviewed Ordering Physician: KENIA MARTINEZ Date of Service: 03/25/21 Procedure(s): VL venous duplex LE LT Accession Number(s): [id number] cc: KENIA MARTINEZ DUPLEX DOPPLER LOWER EXTREMITY VEINS, LEFT INDICATION / CLINICAL INFORMATION: left leg pain. TECHNIQUE: Duplex doppler imaging was performed through the veins of the left lower extremity using venous compression and other maneuvers. COMPARISON: None available. FINDINGS: LEFT COMMON FEMORAL VEIN: Negative. LEFT FEMORAL VEIN: Negative. LEFT POPLITEAL VEIN: Negative. LEFT CALF VEINS: Negative. ADDITIONAL FINDINGS: None. IMPRESSION: 1. No sonographic evidence for DVT in the left lower extremity. Signer Name: David Mcfadden MD Signed: 03/25/2021 3:54 PM Workstation Name: [email or web address] Transcribed By: SHANIKA Dictated By: David Mcfadden MD Electronically Authenticated By: David Mcfadden MD Signed Date/Time: 03/25/21 1554 DD/ 1553 TD/TT: Ordering Physician: KENIA MARTINEZ Date of Service: 03/25/21 Procedure(s): XR chest routine 2V Accession Number(s): [id number] cc: KENIA MARTINEZ Fluoro Time In Minutes: CHEST 2 VIEWS INDICATION / CLINICAL INFORMATION: Chest Pain. COMPARISON: March 17, 2021 FINDINGS: SUPPORT DEVICES: None. HEART / MEDIASTINUM: No significant abnormality. LUNGS / PLEURA: No significant pulmonary or pleural abnormality. No pneumothorax. ADDITIONAL FINDINGS: No significant additional findings. IMPRESSION: 1. No acute findings. Signer Name: Blanco Guevara MD Signed: 03/25/2021 4:16 PM Workstation Name: [id number] Transcribed By: YASSINE Dictated By: ROSEMARIE GUEVARA MD Electronically Authenticated By: ROSEMARIE GUEVARA MD Signed Date/Time: 03/25/211615 DD/ 15 TD/TT: - Medical Decision Making Patient is a 55-year-old female presents emergency room complaints of left leg throbbing that began 2 days ago patient states that she recently started a part- time job and has to stand for long periods. She denies any fall or injury. Patient states that she is also been having some left-sided chest pressure and shortness of breath for 2 days he states that she feels like her anxiety is in creasing. She reports that she was given something in the emergency room for anxiety which she states improved her symptoms but she states that she is out of the medication. She states that she has not followed up with her primary care doctor regarding anxiety. She denies any SI or HI. She denies any fever, cough, vomiting, diarrhea, leg swelling, wheezing, hemoptysis past medical history of asthma, CHF, A. fib. Allergy to amoxicillin, penicillin. Vitals are stable. On exam: mild ttp to the left lateral anterior dumont, mild calf ttp, no edema, no skin changes, no bony ttp, FROM, neurovascularly intact, breath sounds are clear bilaterally, no wheezing, no rales, no rhonchi. EKG with no nspecific T wave changes, otherwise stable. Troponin is negative. D-dimer is negative. Heart score is 3, low risk for cardiac event, she states her symptoms improve when she takes anxiety medication. Patient denies any missed doses of her anticoagulant. Chest x-ray 1. No acute findings. Doppler lower extremity 1. No sonographic evidence for DVT in the left lower extremity. Discussed all results with patient. Patient given prescription for medication. Advised patient Please take medication as prescribed as needed. Follow-up with a primary care doctor. Follow-up with a correctional officer chief. Return to emergency room for any new or worsening symptoms. Critical care attestation.: If time is entered above; I have spent that time in minutes in the direct care of this critically ill patient, excluding procedure time. ED Disposition Clinical Impression: Left leg pain, SOB (shortness of breath), Chest pressure, Anxiety Disposition: 01 HOME / SELF CARE / HOMELESS Is pt being admited?: No Does the pt Need Aspirin: No Condition: Stable Instructions: Nonspecific Chest Pain, Adult, Shortness of Breath, Adult, Managing Anxiety, Adult Additional Instructions: Please take medication as prescribed as needed. Follow-up with a primary care doctor. Follow-up with a correctional officer chief. Return to emergency room for any new or worsening symptoms. Prescriptions: hydrOXYzine HCL [Atarax] 25 mg PO Q6HR PRN #14 tablet PRN Reason: anxiety Naproxen 375 mg PO BID PRN #20 tablet PRN Reason: pain Referrals: PRIMARY CAREMD [Primary Care Provider] - 2-3 Days JOSE HARRIS MD [Staff Physician] - 2-3 Days Forms: Work/School Release Form(ED) Time of Disposition: 17:12 Print Language: SURINAMESE HEART Score - HEART Score History: Slightly suspicious EKG: Normal Age: 45-65 Risk factors: > 3 risk factors or hx of atherosclerotic disease Troponin: Troponin T < 0.010 ng/mL (0.00-0.029) 03/25/21 16:10 Troponin: < normal limit HEART Score: 3
--- NOTE | 2021-03-26 12:57 | Electrocardiograph Report ---
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
== END 2021-03-26 00:47 | disposition home or self-care (01) ==
LOC: ED 14:43
DX: M79.605 Pain in left leg (principal); R06.02 Shortness of breath; F41.9 Anxiety disorder, unspecified; R07.9 Chest pain, unspecified; Z88.0 Allergy status to penicillin; Z91.013 Allergy to seafood; Z91.010 Allergy to peanuts
CPT/HCPCS: 36415; 71046; 80053; 83880; 84484; 85025; 85379; 93005; 99284

== ENCOUNTER 2021-03-26 09:03 | Emergency (ER) | payer MEDICARE ==
[2021-03-26 09:09] VITALS: BP 138/90
--- NOTE | 2021-03-26 09:46 | Emergency Department Report ---
ED General Adult HPI - General Chief complaint: Chest Pain Stated complaint: CP Time Seen by Provider: 03/26/21 09:43 Source: patient Mode of arrival: Ambulatory Limitations: No Limitations - History of Present Illness Initial comments: The patient is a 55-year-old female, with an extensive chronic past medical history, presenting to the ER today with a complaint of intermittent central and left-sided chest wall pain, present for approximately 24 hours. She endorses compliance with her medications, including her systemic anticoagulation. The patient denies headache, neck pain, abdominal pain, vomiting, diaphoresis. Patient denies travel, surgery, immobilization, DVT/PE risk factors. The pain increases with palpation of the chest wall. It decreases with rest. Patient had a negative cardiac nuclear stress test at this hospital in February 2020 DVT study 03/25/2021 negative -: Gradual, days(s) Location: chest Quality: aching Consistency: intermittent Improves with: other Worsens with: other - Related Data Home Medications Medication Instructions Recorded Confirmed Last Taken ALBUTEROL NEB's [Proventil 0.083% 1 vial INHALATION QID PRN 01/19/21 01/19/21 Unknown NEBS] Bimatoprost 0.01%(Nf) 1 drop OU QHS 01/19/21 01/19/21 Unknown Furosemide [Lasix TAB] 20 mg PO QDAY 01/19/21 01/19/21 Unknown Glimepiride [Amaryl] 4 mg PO QDAY 01/19/21 01/19/21 Unknown Loratadine 10 mg PO QDAY 01/19/21 01/19/21 Unknown lisinopriL [Zestril TAB] 40 mg PO QDAY 01/19/21 01/19/21 Unknown Previous Rx's Medication Instructions Recorded Last Taken Type Montelukast [Singulair] 10 mg PO QHS #30 tablet 01/06/20 01/09/21 Rx Albuterol Mdi (or & Nicu Only) 2 puff IH QID PRN #1 inhalation 03/08/20 12/24/20 Rx [ProAir HFA Inhaler] Metoprolol [Lopressor TAB] 25 mg PO Q8HR #90 tablet 08/19/20 Unknown Rx Apixaban [Eliquis] 5 mg PO Q12HR 90 Days tablet 01/20/21 Unknown Rx Budesonide [Pulmicort Respules] 0.5 mg IH Q12HRT 90 Days nebu 01/20/21 Unknown Rx Meloxicam [Mobic] 7.5 mg PO QDAY PRN #12 tablet 02/23/21 Unknown Rx methOCARBAMOL [Robaxin TAB] 500 mg PO BID PRN #14 tab 02/23/21 Unknown Rx Arformoterol Nebu [Brovana Nebu] 15 mcg IH Q12HRT 90 Days ml 03/05/21 Unknown Rx Fluticasone/Umeclidin/Vilanter 1 each IH DAILY #1 blst.w.dev 03/05/21 Unknown Rx [Trelegy Ellipta 200-62.5-25] Prednisone [predniSONE 10 mg 10 mg PO .TAPER #1 tab.ds.pk 03/05/21 Unknown Rx (6-Day Pack, 21 Tabs)] hydrOXYzine HCL [Atarax] 25 mg PO Q6HR PRN #12 tablet 03/05/21 Unknown Rx Azithromycin [Zithromax Z-MERARY] 250 mg PO DAILY #6 tablet 03/17/21 Unknown Rx Benzonatate [Tessalon Perles] 100 mg PO Q8HR PRN #12 capsule 03/17/21 Unknown Rx Naproxen 375 mg PO BID PRN #20 tablet 03/25/21 Unknown Rx hydrOXYzine HCL [Atarax] 25 mg PO Q6HR PRN #14 tablet 03/25/21 Unknown Rx Albuterol Mdi (or & Nicu Only) 2 puff IH QID PRN #1 inhalation 03/29/21 Unknown Rx [ProAir HFA Inhaler] Benzonatate [Tessalon Perles] 100 mg PO Q8HR #20 capsule 03/29/21 Unknown Rx Montelukast [Singulair] 10 mg PO QPM #14 tablet 03/29/21 Unknown Rx predniSONE [Deltasone] 50 mg PO QDAY #5 tab 03/29/21 Unknown Rx Allergies Allergy/AdvReac Type Severity Reaction Status Date / Time amoxicillin Allergy Anaphylaxis Verified 03/05/21 07:19 Penicillins Allergy Rash Verified 03/05/21 07:19 seafood Allergy Severe Anaphylaxis Uncoded 03/16/17 01:08 peanuts Allergy Anaphylaxis Uncoded 09/20/19 12:06 ED Review of Systems ROS: Stated complaint: CP Other details as noted in HPI Constitutional: denies: fever Eyes: denies: eye discharge ENT: denies: epistaxis Respiratory: denies: wheezing Cardiovascular: chest pain. denies: syncope Gastrointestinal: denies: abdominal pain, hematemesis, melena Musculoskeletal: myalgia Neurological: denies: weakness ED Past Medical Hx - Past Medical History Hx Hypertension: Yes Hx Heart Attack/AMI: No Hx Congestive Heart Failure: Yes Hx Diabetes: Yes Hx Pulmonary Embolism: No Hx GERD: Yes Hx Liver Disease: No Hx Renal Disease: No Hx Sickle Cell Disease: No Hx Arthritis: Yes Hx Headaches / Migraines: No Hx Seizures: No Hx Kidney Stones: No Hx Psychiatric Treatment: Yes (Anxiety) Hx Asthma: Yes Hx COPD: Yes Hx Tuberculosis: No Hx HIV: No Additional medical history: Intubated x 9. heart murmur. osteoporosis. hearing loss in [place] - Surgical History Hx Coronary Stent: No Hx Open Heart Surgery: No Hx Pacemaker: No Hx Internal Defibrillator: No Hx Cholecystectomy: No Hx Appendectomy: No Hx Breast Surgery: No Additional Surgical History: cataracts, nasal surg, tubal ligation. bilateral foot. Left shoulder surgery, R. knee sx / EYE SURGERY - Social History Smoking Status: Never Smoker - Medications Home Medications: Home Medications Medication Instructions Recorded Confirmed Last Taken Type Montelukast [Singulair] 10 mg PO QHS #30 tablet 01/06/20 01/19/21 01/09/21 Rx Albuterol Mdi (or & Nicu Only) 2 puff IH QID PRN #1 inhalation 03/08/20 01/19/21 12/24/20 Rx [ProAir HFA Inhaler] Metoprolol [Lopressor TAB] 25 mg PO Q8HR #90 tablet 08/19/20 01/19/21 Unknown Rx ALBUTEROL NEB's [Proventil 0.083% 1 vial INHALATION QID PRN 01/19/21 01/19/21 Unknown History NEBS] Bimatoprost 0.01%(Nf) 1 drop OU QHS 01/19/21 01/19/21 Unknown History Furosemide [Lasix TAB] 20 mg PO QDAY 01/19/21 01/19/21 Unknown History Glimepiride [Amaryl] 4 mg PO QDAY 01/19/21 01/19/21 Unknown History Loratadine 10 mg PO QDAY 01/19/21 01/19/21 Unknown History lisinopriL [Zestril TAB] 40 mg PO QDAY 01/19/21 01/19/21 Unknown History Apixaban [Eliquis] 5 mg PO Q12HR 90 Days tablet 01/20/21 Unknown Rx Budesonide [Pulmicort Respules] 0.5 mg IH Q12HRT 90 Days nebu 01/20/21 Unknown Rx Meloxicam [Mobic] 7.5 mg PO QDAY PRN #12 tablet 02/23/21 Unknown Rx methOCARBAMOL [Robaxin TAB] 500 mg PO BID PRN #14 tab 02/23/21 Unknown Rx Arformoterol Nebu [Brovana Nebu] 15 mcg IH Q12HRT 90 Days ml 03/05/21 Unknown Rx Fluticasone/Umeclidin/Vilanter 1 each IH DAILY #1 blst.w.dev 03/05/21 Unknown Rx [Trelegy Ellipta 200-62.5-25] Prednisone [predniSONE 10 mg 10 mg PO .TAPER #1 tab.ds.pk 03/05/21 Unknown Rx (6-Day Pack, 21 Tabs)] hydrOXYzine HCL [Atarax] 25 mg PO Q6HR PRN #12 tablet 03/05/21 Unknown Rx Azithromycin [Zithromax Z-MERARY] 250 mg PO DAILY #6 tablet 03/17/21 Unknown Rx Benzonatate [Tessalon Perles] 100 mg PO Q8HR PRN #12 capsule 03/17/21 Unknown Rx Naproxen 375 mg PO BID PRN #20 tablet 03/25/21 Unknown Rx hydrOXYzine HCL [Atarax] 25 mg PO Q6HR PRN #14 tablet 03/25/21 Unknown Rx Albuterol Mdi (or & Nicu Only) 2 puff IH QID PRN #1 inhalation 03/29/21 Unknown Rx [ProAir HFA Inhaler] Benzonatate [Tessalon Perles] 100 mg PO Q8HR #20 capsule 03/29/21 Unknown Rx Montelukast [Singulair] 10 mg PO QPM #14 tablet 03/29/21 Unknown Rx predniSONE [Deltasone] 50 mg PO QDAY #5 tab 03/29/21 Unknown Rx ED Physical Exam - General Limitations: No Limitations General appearance: alert, in no apparent distress - Head Head exam: Present: atraumatic, normocephalic - Eye Eye exam: Present: normal appearance, EOMI. Absent: nystagmus - ENT ENT exam: Present: normal exam, normal orophraynx, mucous membranes moist, normal external ear exam - Neck Neck exam: Present: normal inspection, full ROM. Absent: tenderness, meningismus - Respiratory Respiratory exam: Present: normal lung sounds bilaterally, chest wall tenderness. Absent: respiratory distress, wheezes, rales, rhonchi, stridor - Cardiovascular Cardiovascular Exam: Present: regular rate, normal rhythm, normal heart sounds. Absent: bradycardia, tachycardia, irregular rhythm, systolic murmur, diastolic murmur, rubs, gallop - GI/Abdominal GI/Abdominal exam: Present: soft, normal bowel sounds. Absent: distended, tenderness, guarding, rebound, rigid, pulsatile mass - Extremities Exam Extremities exam: Present: normal inspection, full ROM, other (2+ pulses noted in the bilateral upper and lower extremities. There is no palpable cord. negative Homans sign. Muscular compartments are soft. The pelvis is stable.). Absent: pedal edema, calf tenderness - Back Exam Back exam: Present: normal inspection, full ROM. Absent: tenderness, CVA tenderness (R), CVA tenderness (L), paraspinal tenderness, vertebral tenderness - Neurological Exam Neurological exam: Present: alert, oriented X3, normal gait, other (No facial droop. Tongue midline. Extraocular movements intact bilaterally. Facial sensation intact to light touch in V1, V2, V3 distribution bilaterally. 5 and a 5 strength in 4 extremities. Sensation intact to light touch in 4 extremities.). Absent: motor sensory deficit - Psychiatric Psychiatric exam: Present: normal affect, normal mood - Skin Skin exam: Present: warm, dry, intact, normal color. Absent: rash ED Course Vital Signs 03/26/21 03/26/21 09:08 10:36 Temperature 98.0 F 98.4 F Pulse Rate 67 82 Respiratory 20 16 Rate Blood Pressure 138/90 O2 Sat by Pulse 97 98 Oximetry ED Medical Decision Making - Lab Data Result diagrams: 03/26/21 10:30 03/26/21 10:30 Vital Signs 03/26/21 03/26/21 09:08 10:36 Temperature 98.0 F 98.4 F Pulse Rate 67 82 Respiratory 20 16 Rate Blood Pressure 138/90 O2 Sat by Pulse 97 98 Oximetry Lab Results 03/26/21 03/26/21 03/26/21 Range/Units 10:30 10:30 10:30 WBC 5.0 (4.5-11.0) K/mm3 RBC 4.46 (3.65-5.03) M/mm3 Hgb 12.6 (10.1-14.3) gm/dl Hct 38.9 (30.3-42.9) % MCV 87 (79-97) fl MCH 28 (28-32) pg MCHC 33 (30-34) % RDW 14.2 (13.2-15.2) % Plt Count 262 (140-440) K/mm3 Lymph % (Auto) 48.0 H (13.4-35.0) % [place] % (Auto) 6.6 (0.0-7.3) % Eos % (Auto) 3.1 (0.0-4.3) % Baso % (Auto) 1.3 (0.0-1.8) % Lymph # (Auto) 2.4 (1.2-5.4) K/mm3 [place] # (Auto) 0.3 (0.0-0.8) K/mm3 Eos # (Auto) 0.2 (0.0-0.4) K/mm3 Baso # (Auto) 0.1 (0.0-0.1) K/mm3 Seg Neutrophils % 41.0 (40.0-70.0) % Seg Neutrophils # 2.1 (1.8-7.7) K/mm3 PT 20.4 H (12.2-14.9) Sec. INR 1.58 H (0.87-1.13) Sodium 144 (137-145) mmol/L Potassium 4.0 (3.6-5.0) mmol/L Chloride 106.0 (98-107) mmol/L Carbon Dioxide 25 (22-30) mmol/L Anion Gap 17 mmol/L BUN 12 (7-17) mg/dL Creatinine 0.8 (0.6-1.2) mg/dL Estimated GFR > 60 ml/min BUN/Creatinine Ratio 15 % Glucose 90 (65-100) mg/dL Calcium 9.4 (8.4-10.2) mg/dL Magnesium 2.10 (1.7-2.3) mg/dL Total Bilirubin 0.30 (0.1-1.2) mg/dL AST 16 (5-40) units/L ALT 16 (7-56) units/L Alkaline Phosphatase 92 (35-129) units/L Total Creatine Kinase 344 H (30-135) units/L Troponin T < 0.010 (0.00-0.029) ng/mL Total Protein 7.4 (6.3-8.2) g/dL Albumin 4.6 (3.9-5) g/dL Albumin/Globulin Ratio 1.6 % - EKG Data -: EKG Interpreted by Nv EKG shows normal: sinus rhythm Rate: normal - EKG Data Interpretation: unchanged when compared t (Unchanged when compared to prior EKG from 02/2021) 03/26/21 11:37 The EKG is interpreted at 09: 13 Sinus rhythm, rate 60 bpm. Normal axis, QTC within normal limits, normal intervals, with the exception of ID interval which is prolonged, there is normal P wave axis, and left ventricular hypertrophy. This is an abnormal EKG. This is not a STEMI - Radiology Data Radiology results: pending, report reviewed, image reviewed CHEST 2 VIEWS INDICATION / CLINICAL INFORMATION: Chest Pain. COMPARISON: 03/25/2021 FINDINGS: SUPPORT DEVICES: None. HEART / MEDIASTINUM: No significant abnormality. LUNGS / PLEURA: No significant pulmonary or pleural abnormality. No pneumothorax. ADDITIONAL FINDINGS: No significant additional findings. IMPRESSION: 1. No acute findings. Signer Name: Valdo Acharya DO Signed: 03/26/2021 9:34 AM Workstation Name: [id number] - Medical Decision Making Differential diagnosis, including but not limited to: GERD, gastritis, hiatal hernia, pneumonia, costochondritis, coronary artery disease Assessment and plan: 55-year-old female, who is not currently tachycardic, tachypneic or hypoxic, who denies DVT and pulmonary embolism risk factors, who is low risk by Wells criteria for pulmonary embolism, who is systemically anticoagulated for paroxysmal A. fib, and compliant with Eliquis, ,EKG unchanged when compared to prior troponin negative x1, in the context of 3 to 4 days of symptoms, with reproducible chest wall tenderness Patient has equal pulses in the upper and lower extremities, no pulsatile abdominal mass, and an unremarkable x-ray of the chest, therefore, aortic disease is very unlikely. Patient at low risk for major adverse cardiac event as per heart score. Patient resting comfortably in stretcher, and in no acute distress. She felt improved after pain medication, and she can follow-up with outpatient cardiology to complete an outpatient cardiac risk ratification Critical care attestation.: If time is entered above; I have spent that time in minutes in the direct care of this critically ill patient, excluding procedure time. ED Disposition Clinical Impression: Chest wall pain Disposition: HOME / SELF CARE / HOMELESS Is pt being admited?: No Does the pt Need Aspirin: No Condition: Good Instructions: Costochondritis Additional Instructions: Please continue current outpatient medications. Patient may take Tylenol [id number], 650 mg by mouth, every 4-6 hours as needed for physical pain. Please follow-up with an outpatient cleaning and maintenance worker within the next 3 to 5 days. Avoid consumption of heavy and spicy foods. Please return to the emergency room right away with new pain, worsened pain, migration of pain, projectile vomiting, change in mental status, confusion, inability to tolerate liquid feeds, new, worsened or different symptoms not present on the initial emergency room evaluation Referrals: PRIMARY CARE, [Primary Care Provider] - 3-5 Days [facility] [Provider Group] - 3-5 Days [facility] [Provider Group] - 3-5 Days Forms: Work/School Release Form(ED) Heart Score - HEART Score History: Slightly suspicious EKG: Non-specific Age: 45-65 Risk factors: 1-2 risk factors Troponin: < normal limit HEART Score: 3 - EKG Read Time Time EKG Completed: 09:15 EKG Read Time: 09:15 - Critical Actions Critical Actions: 0-3 pts:0.9-1.7%risk of adverse cardiac event.Candidate for discharge
[2021-03-26] MEDS ORDERED: FAMOTIDINE 20 MG TAB PO ONE (10:35)
[2021-03-26] MEDS ORDERED: ACETAMINOPHEN 325 MG TAB PO ONE (10:35)
--- NOTE | 2021-03-26 10:39 | XRay Report ---
CHEST 2 VIEWS INDICATION / CLINICAL INFORMATION: Chest Pain. COMPARISON: 03/25/2021 FINDINGS: SUPPORT DEVICES: None. HEART / MEDIASTINUM: No significant abnormality. LUNGS / PLEURA: No significant pulmonary or pleural abnormality. No pneumothorax. ADDITIONAL FINDINGS: No significant additional findings. IMPRESSION: 1. No acute findings. Signer Name: Valdo Acharya DO Signed: 03/26/2021 10:34 AM Workstation Name: [id number]
[2021-03-26 10:58] LABS: Basophils # (Auto) 0.1 K/mm3 (0.0-0.1); Basophils % (Auto) 1.3 % (0.0-1.8); Eosinophils # (Auto) 0.2 K/mm3 (0.0-0.4); Eosinophils % (Auto) 3.1 % (0.0-4.3); Hematocrit 38.9 % (30.3-42.9); Hemoglobin 12.6 gm/dl (10.1-14.3); Lymphocytes # (Auto) 2.4 K/mm3 (1.2-5.4); Mean Corpuscular HGB Conc 33 % (30-34); Mean Corpuscular Volume 87 fl (79-97); Monocytes # (Auto) 0.3 K/mm3 (0.0-0.8); Monocytes % (Auto) 6.6 % (0.0-7.3); Platelet Count 262 K/mm3 (140-440); Red Blood Count 4.46 M/mm3 (3.65-5.03); Red Cell Distribution Width 14.2 % (13.2-15.2)
[2021-03-26 11:14] LABS: Alanine Aminotransferase 16 units/L (7-56); Albumin 4.6 g/dL (3.9-5); BUN/Creatinine Ratio 15; Blood Urea Nitrogen 12 mg/dL (7-17); Calcium 9.4 mg/dL (8.4-10.2); Hemolysis Index 6
[2021-03-26 11:33] LABS: INR 1.58 (0.87-1.13)
--- NOTE | 2021-03-26 13:00 | Electrocardiograph Report ---
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
== END 2021-03-26 11:58 | disposition home or self-care (01) ==
LOC: ED 09:03
DX: R07.89 Other chest pain (principal); I10 Essential (primary) hypertension; Z88.0 Allergy status to penicillin; Z91.013 Allergy to seafood; J45.909 Unspecified asthma, uncomplicated; F41.9 Anxiety disorder, unspecified
CPT/HCPCS: 36415; 71046; 80053; 82550; 83735; 84484; 85025; 85610; 93005; 99284

== ENCOUNTER 2021-03-29 01:54 | Emergency (ER) | payer MEDICARE ==
[2021-03-29 01:59] VITALS: BP 145/85
[2021-03-29] MEDS ORDERED: IPRATROPIUM/ALBUTEROL SULFATE 3 ML AMPUL.NEB IH ONE (02:15)
[2021-03-29] MEDS ORDERED: dexAMETHasone 4 MG/ML VIAL IM ONE (02:15)
[2021-03-29] MEDS ORDERED: LORazepam 1 MG TAB PO ONE (02:16)
--- NOTE | 2021-03-29 02:57 | Emergency Department Report ---
ED Headache HPI - General Chief Complaint: Adult Asthma Stated Complaint: ASTHMA Time Seen by Provider: 03/29/21 02:01 - History of Present Illness Initial Comments: 55-year-old F [place] female Tribenzor complaining of recurrent asthma exacerbations, unknown etiology. She has been seen emergency department to 3 times for this similar symptoms in the past 2 to 3 months she has home albuterol and a nebulizer and an inhaler for that is not leaving her symptoms she also has a component of anxiety which she states is not Benadryl she not even able to follow-up with her primary care provider for definitive treatment therapy. 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 No hemoptysis hematemesis hematochezia. No fever, chills, sweats Timing/Duration: 1 week, waxing and waning Quality: mild, moderate, severe Head Injury Location: parietal Modifying Factors: improves with: cold therapy Associated Symptoms: denies: facial pain, fever/chills, nausea/vomiting, nasal congestion, nasal drainage, sinus infection, stiff neck, vision changes Allergies/Adverse Reactions: Allergies amoxicillin Allergy (Verified 03/05/21 07:19) Anaphylaxis Penicillins Allergy (Verified 03/05/21 07:19) Rash seafood Allergy (Severe, Uncoded 03/16/17 01:08) Anaphylaxis peanuts Allergy (Uncoded 09/20/19 12:06) Anaphylaxis Home Medications: Ambulatory Orders Montelukast [Singulair] 10 mg PO QHS #30 tablet 01/06/20 Albuterol Mdi (or & Nicu Only) [ProAir HFA Inhaler] 2 puff IH QID PRN #1 inhalation 03/08/20 Metoprolol [Lopressor TAB] 25 mg PO Q8HR #90 tablet 08/19/20 ALBUTEROL NEB's [Proventil 0.083% NEBS] 1 vial INHALATION QID PRN 01/19/21 Bimatoprost 0.01%(Nf) 1 drop OU QHS 01/19/21 Furosemide [Lasix TAB] 20 mg PO QDAY 01/19/21 Glimepiride [Amaryl] 4 mg PO QDAY 01/19/21 Loratadine 10 mg PO QDAY 01/19/21 lisinopriL [Zestril TAB] 40 mg PO QDAY 01/19/21 Apixaban [Eliquis] 5 mg PO Q12HR 90 Days tablet 01/20/21 Budesonide [Pulmicort Respules] 0.5 mg IH Q12HRT 90 Days nebu 01/20/21 Meloxicam [Mobic] 7.5 mg PO QDAY PRN #12 tablet 02/23/21 methOCARBAMOL [Robaxin TAB] 500 mg PO BID PRN #14 tab 02/23/21 Arformoterol Nebu [Brovana Nebu] 15 mcg IH Q12HRT 90 Days ml 03/05/21 Fluticasone/Umeclidin/Vilanter [Trelegy Ellipta 200-62.5-25] 1 each IH DAILY #1 blst.w.dev 03/05/21 Prednisone [predniSONE 10 mg (6-Day Pack, 21 Tabs)] 10 mg PO .TAPER #1 tab.ds.pk 03/05/21 hydrOXYzine HCL [Atarax] 25 mg PO Q6HR PRN #12 tablet 03/05/21 Azithromycin [Zithromax Z-MERARY] 250 mg PO DAILY #6 tablet 03/17/21 Benzonatate [Tessalon Perles] 100 mg PO Q8HR PRN #12 capsule 03/17/21 Naproxen 375 mg PO BID PRN #20 tablet 03/25/21 hydrOXYzine HCL [Atarax] 25 mg PO Q6HR PRN #14 tablet 03/25/21 Albuterol Mdi (or & Nicu Only) [ProAir HFA Inhaler] 2 puff IH QID PRN #1 inhalation 03/29/21 Benzonatate [Tessalon Perles] 100 mg PO Q8HR #20 capsule 03/29/21 Montelukast [Singulair] 10 mg PO QPM #14 tablet 03/29/21 predniSONE [Deltasone] 50 mg PO QDAY #5 tab 03/29/21 ED Review of Systems ROS: Stated complaint: ASTHMA Other details as noted in HPI Comment: All other systems reviewed and negative ED Past Medical Hx - Past Medical History Hx Hypertension: Yes Hx Heart Attack/AMI: No Hx Congestive Heart Failure: Yes Hx Diabetes: Yes Hx Pulmonary Embolism: No Hx GERD: Yes Hx Liver Disease: No Hx Renal Disease: No Hx Sickle Cell Disease: No Hx Arthritis: Yes Hx Headaches / Migraines: No Hx Seizures: No Hx Kidney Stones: No Hx Psychiatric Treatment: Yes (Anxiety) Hx Asthma: Yes Hx COPD: Yes Hx Tuberculosis: No Hx HIV: No Additional medical history: Intubated x 9. heart murmur. osteoporosis. hearing loss in [place] - Surgical History Hx Coronary Stent: No Hx Open Heart Surgery: No Hx Pacemaker: No Hx Internal Defibrillator: No Hx Cholecystectomy: No Hx Appendectomy: No Hx Breast Surgery: No Additional Surgical History: cataracts, nasal surg, tubal ligation. bilateral foot. Left shoulder surgery, R. knee sx / EYE SURGERY - Social History Smoking Status: Never Smoker - Medications Home Medications: Home Medications Medication Instructions Recorded Confirmed Last Taken Type Montelukast [Singulair] 10 mg PO QHS #30 tablet 01/06/20 01/19/21 01/09/21 Rx Albuterol Mdi (or & Nicu Only) 2 puff IH QID PRN #1 inhalation 03/08/20 01/19/21 12/24/20 Rx [ProAir HFA Inhaler] Metoprolol [Lopressor TAB] 25 mg PO Q8HR #90 tablet 08/19/20 01/19/21 Unknown Rx ALBUTEROL NEB's [Proventil 0.083% 1 vial INHALATION QID PRN 01/19/21 01/19/21 Unknown History NEBS] Bimatoprost 0.01%(Nf) 1 drop OU QHS 01/19/21 01/19/21 Unknown History Furosemide [Lasix TAB] 20 mg PO QDAY 01/19/21 01/19/21 Unknown History Glimepiride [Amaryl] 4 mg PO QDAY 01/19/21 01/19/21 Unknown History Loratadine 10 mg PO QDAY 01/19/21 01/19/21 Unknown History lisinopriL [Zestril TAB] 40 mg PO QDAY 01/19/21 01/19/21 Unknown History Apixaban [Eliquis] 5 mg PO Q12HR 90 Days tablet 01/20/21 Unknown Rx Budesonide [Pulmicort Respules] 0.5 mg IH Q12HRT 90 Days nebu 01/20/21 Unknown Rx Meloxicam [Mobic] 7.5 mg PO QDAY PRN #12 tablet 02/23/21 Unknown Rx methOCARBAMOL [Robaxin TAB] 500 mg PO BID PRN #14 tab 02/23/21 Unknown Rx Arformoterol Nebu [Brovana Nebu] 15 mcg IH Q12HRT 90 Days ml 03/05/21 Unknown Rx Fluticasone/Umeclidin/Vilanter 1 each IH DAILY #1 blst.w.dev 03/05/21 Unknown Rx [Trelegy Ellipta 200-62.5-25] Prednisone [predniSONE 10 mg 10 mg PO .TAPER #1 tab.ds.pk 03/05/21 Unknown Rx (6-Day Pack, 21 Tabs)] hydrOXYzine HCL [Atarax] 25 mg PO Q6HR PRN #12 tablet 03/05/21 Unknown Rx Azithromycin [Zithromax Z-MERARY] 250 mg PO DAILY #6 tablet 03/17/21 Unknown Rx Benzonatate [Tessalon Perles] 100 mg PO Q8HR PRN #12 capsule 03/17/21 Unknown Rx Naproxen 375 mg PO BID PRN #20 tablet 03/25/21 Unknown Rx hydrOXYzine HCL [Atarax] 25 mg PO Q6HR PRN #14 tablet 03/25/21 Unknown Rx Albuterol Mdi (or & Nicu Only) 2 puff IH QID PRN #1 inhalation 03/29/21 Unknown Rx [ProAir HFA Inhaler] Benzonatate [Tessalon Perles] 100 mg PO Q8HR #20 capsule 03/29/21 Unknown Rx Montelukast [Singulair] 10 mg PO QPM #14 tablet 03/29/21 Unknown Rx predniSONE [Deltasone] 50 mg PO QDAY #5 tab 03/29/21 Unknown Rx ED Physical Exam - General Limitations: Language Barrier General appearance: alert, in no apparent distress - Head Head exam: Present: atraumatic, normocephalic - Eye Eye exam: Present: normal appearance, PERRL, EOMI Pupils: Present: normal accommodation - ENT ENT exam: Present: normal exam, normal orophraynx, mucous membranes moist, TM's normal bilaterally - Neck Neck exam: Present: normal inspection, full ROM - Respiratory Respiratory exam: Present: normal lung sounds bilaterally, wheezes (Mild wheezing good air movement). Absent: respiratory distress, rales, chest wall tenderness, accessory muscle use, decreased breath sounds - Cardiovascular Cardiovascular Exam: Present: regular rate, normal rhythm. Absent: systolic murmur, diastolic murmur, rubs, gallop - GI/Abdominal GI/Abdominal exam: Present: soft, normal bowel sounds. Absent: distended, tenderness - Extremities Exam Extremities exam: Present: normal inspection - Back Exam Back exam: Present: normal inspection, full ROM. Absent: CVA tenderness (R), CVA tenderness (L) - Neurological Exam Neurological exam: Present: alert, oriented X3, CN II-XII intact, normal gait - Psychiatric Psychiatric exam: Present: normal affect, normal mood, anxious - Skin Skin exam: Present: warm, dry, intact, normal color. Absent: rash ED Course Vital Signs 03/29/21 01:56 Temperature 99.3 F Pulse Rate 104 H Respiratory 18 Rate Blood Pressure 145/85 [Right] O2 Sat by Pulse 95 Oximetry ED Medical Decision Making - Radiology Data Radiology results: report reviewed - Medical Decision Making No altered mental status, saddle respirations, belly breathing or other signs of impending ventilatory failure. No intubations or recent admissions to the hospital for asthma. Unlikely pneumonia, CHF, COPD, GERD Workup Review include a chest x-ray which was normal she also received steroids and albuterol Therapies: Prednisone 50 mg PO. Albuterol nebulizer Reassessment: Patient improved with albuterol and ipratropium in less than 3 hours. Disposition: Discharge home with return precautions. Advised to follow up with primary care physician within next 24-48 hours. Aside from this acute exacerbation patient has been well controlled on baseline home regimen. Rx short steroid course, albuterol, Singulair, Flovent Critical care attestation.: If time is entered above; I have spent that time in minutes in the direct care of this critically ill patient, excluding procedure time. ED Disposition Condition: Stable
== END 2021-03-29 04:01 | disposition home or self-care (01) ==
LOC: ED 01:54
DX: J45.901 Unspecified asthma with (acute) exacerbation (principal); I10 Essential (primary) hypertension
CPT/HCPCS: 94640; 96372; 99283; J1100

== ENCOUNTER 2021-04-05 06:20 | Emergency (ER) | payer MEDICARE ==
[2021-04-05 06:46] VITALS: BP 145/87
[2021-04-05] MEDS ORDERED: IPRATROPIUM/ALBUTEROL SULFATE 3 ML AMPUL.NEB IH ONE (07:03)
--- NOTE | 2021-04-05 07:03 | Emergency Department Report ---
ED General Adult HPI - General Chief complaint: Adult Asthma Stated complaint: ASTHMA Time Seen by Provider: 04/05/21 06:59 Source: patient Mode of arrival: Ambulatory Limitations: No Limitations - History of Present Illness Initial comments: Patient presents with multiple complaints including shortness of breath and anxiety. She has a history of anxiety and asthma. She woke up this morning at 430. She used her breathing treatment. She still felt as though she could not breathe. She started having a panic attack. Ultimately, she came here for evaluation. Upon arrival here, she states that she actually feels a little better. She believes that she is still having trouble breathing. She still feels anxious. She reports that she has had a cough and congestion. Cough has been producing a whitish to yellowish phlegm. She has had subjective fevers and chills although no documented temperature. She reports muscle aches and body aches. She states she just does not feel well. Patient states her symptom started about 3 to 4 days ago. The anxiety was worse this morning as was the difficulty breathing. Therefore days ago, she states that she was riding on a bus. She was close to somebody who "smelled sick." Patient reports that she felt like something "glommed onto her." Patient states she just came here because she did not feel right or well. She has no chest pain. There is no diarrhea but she has had looser stools. She has no nausea or vomiting. There is no dysuria or frequency. She has no rash. She has had no known exposure to influenza or coronavirus. She is been vaccinated against both. - Related Data Home Medications Medication Instructions Recorded Confirmed Last Taken ALBUTEROL NEB's [Proventil 0.083% 1 vial INHALATION QID PRN 01/19/21 01/19/21 Unknown NEBS] Bimatoprost 0.01%(Nf) 1 drop OU QHS 01/19/21 01/19/21 Unknown Furosemide [Lasix TAB] 20 mg PO QDAY 01/19/21 01/19/21 Unknown Glimepiride [Amaryl] 4 mg PO QDAY 01/19/21 01/19/21 Unknown Loratadine 10 mg PO QDAY 01/19/21 01/19/21 Unknown lisinopriL [Zestril TAB] 40 mg PO QDAY 01/19/21 01/19/21 Unknown Previous Rx's Medication Instructions Recorded Last Taken Type Montelukast [Singulair] 10 mg PO QHS #30 tablet 01/06/20 01/09/21 Rx Albuterol Mdi (or & Nicu Only) 2 puff IH QID PRN #1 inhalation 03/08/20 12/24/20 Rx [ProAir HFA Inhaler] Metoprolol [Lopressor TAB] 25 mg PO Q8HR #90 tablet 08/19/20 Unknown Rx Apixaban [Eliquis] 5 mg PO Q12HR 90 Days tablet 01/20/21 Unknown Rx Budesonide [Pulmicort Respules] 0.5 mg IH Q12HRT 90 Days nebu 01/20/21 Unknown Rx Meloxicam [Mobic] 7.5 mg PO QDAY PRN #12 tablet 02/23/21 Unknown Rx methOCARBAMOL [Robaxin TAB] 500 mg PO BID PRN #14 tab 02/23/21 Unknown Rx Arformoterol Nebu [Brovana Nebu] 15 mcg IH Q12HRT 90 Days ml 03/05/21 Unknown Rx Fluticasone/Umeclidin/Vilanter 1 each IH DAILY #1 blst.w.dev 03/05/21 Unknown Rx [Trelegy Ellipta 200-62.5-25] hydrOXYzine HCL [Atarax] 25 mg PO Q6HR PRN #12 tablet 03/05/21 Unknown Rx Azithromycin [Zithromax Z-MERARY] 250 mg PO DAILY #6 tablet 03/17/21 Unknown Rx Naproxen 375 mg PO BID PRN #20 tablet 03/25/21 Unknown Rx hydrOXYzine HCL [Atarax] 25 mg PO Q6HR PRN #14 tablet 03/25/21 Unknown Rx Albuterol Mdi (or & Nicu Only) 2 puff IH QID PRN #1 inhalation 03/29/21 Unknown Rx [ProAir HFA Inhaler] Benzonatate [Tessalon Perles] 100 mg PO Q8HR #20 capsule 03/29/21 Unknown Rx Montelukast [Singulair] 10 mg PO QPM #14 tablet 03/29/21 Unknown Rx predniSONE [Deltasone] 50 mg PO QDAY #5 tab 03/29/21 Unknown Rx Benzonatate [Tessalon Perles] 100 mg PO Q8HR PRN #12 capsule 04/05/21 Unknown Rx Prednisone [predniSONE 10 mg 10 mg PO .TAPER #1 tab.ds.pk 04/05/21 Unknown Rx (6-Day Pack, 21 Tabs)] Allergies Allergy/AdvReac Type Severity Reaction Status Date / Time amoxicillin Allergy Anaphylaxis Verified 04/05/21 06:46 Penicillins Allergy Rash Verified 04/05/21 06:46 seafood Allergy Severe Anaphylaxis Uncoded 03/16/17 01:08 peanuts Allergy Anaphylaxis Uncoded 09/20/19 12:06 ED Review of Systems ROS: Stated complaint: ASTHMA Other details as noted in HPI Comment: All other systems reviewed and negative Constitutional: see HPI, fever ( Subjective) Eyes: denies: vision change ENT: denies: throat pain Respiratory: see HPI Cardiovascular: denies: chest pain Endocrine: denies: unexplained weight loss Gastrointestinal: as per HPI Genitourinary: denies: dysuria Musculoskeletal: as per HPI, arthralgia, myalgia. denies: back pain Skin: denies: rash Neurological: denies: headache Hematological/Lymphatic: denies: easy bruising ED Past Medical Hx - Past Medical History Hx Hypertension: Yes Hx Heart Attack/AMI: No Hx Congestive Heart Failure: Yes Hx Diabetes: Yes Hx Pulmonary Embolism: No Hx GERD: Yes Hx Liver Disease: No Hx Renal Disease: No Hx Sickle Cell Disease: No Hx Arthritis: Yes Hx Headaches / Migraines: No Hx Seizures: No Hx Kidney Stones: No Hx Psychiatric Treatment: Yes (Anxiety) Hx Asthma: Yes Hx COPD: Yes Hx Tuberculosis: No Hx HIV: No Additional medical history: Intubated x 9. heart murmur. osteoporosis. hearing loss in [place] - Surgical History Hx Coronary Stent: No Hx Open Heart Surgery: No Hx Pacemaker: No Hx Internal Defibrillator: No Hx Cholecystectomy: No Hx Appendectomy: No Hx Breast Surgery: No Additional Surgical History: cataracts, nasal surg, tubal ligation. bilateral foot. Left shoulder surgery, R. knee sx / EYE SURGERY - Family History Family history: hypertension - Social History Smoking Status: Never Smoker - Medications Home Medications: Home Medications Medication Instructions Recorded Confirmed Last Taken Type Montelukast [Singulair] 10 mg PO QHS #30 tablet 01/06/20 01/19/21 01/09/21 Rx Albuterol Mdi (or & Nicu Only) 2 puff IH QID PRN #1 inhalation 03/08/20 01/19/21 12/24/20 Rx [ProAir HFA Inhaler] Metoprolol [Lopressor TAB] 25 mg PO Q8HR #90 tablet 08/19/20 01/19/21 Unknown Rx ALBUTEROL NEB's [Proventil 0.083% 1 vial INHALATION QID PRN 01/19/21 01/19/21 Unknown History NEBS] Bimatoprost 0.01%(Nf) 1 drop OU QHS 01/19/21 01/19/21 Unknown History Furosemide [Lasix TAB] 20 mg PO QDAY 01/19/21 01/19/21 Unknown History Glimepiride [Amaryl] 4 mg PO QDAY 01/19/21 01/19/21 Unknown History Loratadine 10 mg PO QDAY 01/19/21 01/19/21 Unknown History lisinopriL [Zestril TAB] 40 mg PO QDAY 01/19/21 01/19/21 Unknown History Apixaban [Eliquis] 5 mg PO Q12HR 90 Days tablet 01/20/21 Unknown Rx Budesonide [Pulmicort Respules] 0.5 mg IH Q12HRT 90 Days nebu 01/20/21 Unknown Rx Meloxicam [Mobic] 7.5 mg PO QDAY PRN #12 tablet 02/23/21 Unknown Rx methOCARBAMOL [Robaxin TAB] 500 mg PO BID PRN #14 tab 02/23/21 Unknown Rx Arformoterol Nebu [Brovana Nebu] 15 mcg IH Q12HRT 90 Days ml 03/05/21 Unknown Rx Fluticasone/Umeclidin/Vilanter 1 each IH DAILY #1 blst.w.dev 03/05/21 Unknown Rx [Trelegy Ellipta 200-62.5-25] hydrOXYzine HCL [Atarax] 25 mg PO Q6HR PRN #12 tablet 03/05/21 Unknown Rx Azithromycin [Zithromax Z-MERARY] 250 mg PO DAILY #6 tablet 03/17/21 Unknown Rx Naproxen 375 mg PO BID PRN #20 tablet 03/25/21 Unknown Rx hydrOXYzine HCL [Atarax] 25 mg PO Q6HR PRN #14 tablet 03/25/21 Unknown Rx Albuterol Mdi (or & Nicu Only) 2 puff IH QID PRN #1 inhalation 03/29/21 Unknown Rx [ProAir HFA Inhaler] Benzonatate [Tessalon Perles] 100 mg PO Q8HR #20 capsule 03/29/21 Unknown Rx Montelukast [Singulair] 10 mg PO QPM #14 tablet 03/29/21 Unknown Rx predniSONE [Deltasone] 50 mg PO QDAY #5 tab 03/29/21 Unknown Rx Benzonatate [Tessalon Perles] 100 mg PO Q8HR PRN #12 capsule 04/05/21 Unknown Rx Prednisone [predniSONE 10 mg 10 mg PO .TAPER #1 tab.ds.pk 04/05/21 Unknown Rx (6-Day Pack, 21 Tabs)] ED Physical Exam - General Limitations: No Limitations, Other ( pulse ox noted and normal) General appearance: alert, in no apparent distress, anxious - Head Head exam: Present: atraumatic, normocephalic - Eye Eye exam: Present: normal appearance, EOMI - ENT ENT exam: Present: normal orophraynx, normal external ear exam - Neck Neck exam: Present: normal inspection. Absent: meningismus - Respiratory Respiratory exam: Present: normal lung sounds bilaterally. Absent: respiratory distress - Cardiovascular Cardiovascular Exam: Present: regular rate, normal rhythm - GI/Abdominal GI/Abdominal exam: Present: soft. Absent: distended, tenderness - Extremities Exam Extremities exam: Present: normal capillary refill - Back Exam Back exam: Absent: CVA tenderness (R), CVA tenderness (L) - Neurological Exam Neurological exam: Present: alert, oriented X3, normal gait - Psychiatric Psychiatric exam: Present: normal affect, anxious - Skin Skin exam: Present: warm, dry ED Course Vital Signs 04/05/21 06:42 Temperature 97.8 F Pulse Rate 87 Respiratory 21 Rate Blood Pressure 145/87 [Right] O2 Sat by Pulse 97 Oximetry - Reevaluation(s) Reevaluation #1: 04/05/21 08:51 DuoNeb was ordered. Old records reviewed. Patient discharged. ED Medical Decision Making - Medical Decision Making Patient presents with respiratory symptoms and difficulty breathing. She had no significant wheezing here. DuoNeb was administered and she felt better. Patient had anxiety and felt very nervous. This can be treated symptomatically. She did have exposure to URI symptoms although I am not convinced that is when her illness really began. Patient has no obvious loss of smell. She does not have adventitious breath sounds. She does not appear to be toxic. Influenza testing would not be indicated in my opinion as she would not benefit from Tamiflu. We are not currently performing outpatient coronavirus testing at this facility. She has been referred for follow-up and outpatient testing. She does not appear to be toxic. Critical Care Time: No Critical care attestation.: If time is entered above; I have spent that time in minutes in the direct care of this critically ill patient, excluding procedure time. ED Disposition Clinical Impression: Acute URI, Myalgia, Anxiety Asthma exacerbation Qualifiers: Asthma severity: mild Asthma persistence: intermittent Qualified Code(s): J45.21 - Mild intermittent asthma with (acute) exacerbation Disposition: HOME / SELF CARE / HOMELESS Is pt being admited?: No Condition: Stable Instructions: Asthma, Adult, Cough, Adult, [id number], Viral Respiratory Infection, [id number], Musculoskeletal Pain, Managing Anxiety, Adult Additional Instructions: USE YOUR INHALER AND NEBULIZER. PUSH FLUIDS. USE TYLENOL FOR PAIN. RETURN FOR PROBLEMS. SEE YOUR DOCTOR FOR RECHECK. GET A COVID TEST DONE. Prescriptions: Prednisone [predniSONE 10 mg (6-Day Pack, 21 Tabs)] 10 mg PO .TAPER #1 tab.ds.pk Benzonatate [Tessalon Perles] 100 mg PO Q8HR PRN #12 capsule PRN Reason: Cough Referrals: PRIMARY CARE, [Primary Care Provider] - 3-5 Days
== END 2021-04-05 08:57 | disposition home or self-care (01) ==
LOC: ED 06:20
DX: J06.9 Acute upper respiratory infection, unspecified (principal); M79.10 Myalgia, unspecified site; F41.9 Anxiety disorder, unspecified; J45.21 Mild intermittent asthma with (acute) exacerbation; I10 Essential (primary) hypertension; Z86.79 Personal history of other diseases of the circulatory system; Z91.013 Allergy to seafood; Z91.010 Allergy to peanuts
CPT/HCPCS: 99282

== ENCOUNTER 2021-05-19 09:33 | Outpatient (CLI) | payer MEDICARE ==
--- NOTE | 2021-05-20 09:48 | Mammography Report ---
DIGITAL SCREENING MAMMOGRAM WITH CAD, 05/19/2021 CLINICAL INFORMATION / INDICATION: Routine screening mammography. SCREENING MAMMOGRAM TECHNIQUE: Digital bilateral 2D mammography was obtained in the craniocaudal and mediolateral obliqu e projections. This examination was interpreted with the benefit of Computer-Aided Detection analysis . COMPARISON: June 11, 2010 FINDINGS: Breast Density: There are scattered areas of fibroglandular density. No dominant mass, suspicious calcifications, or architectural distortion in either breast. IMPRESSION: No mammographic evidence of malignancy. Follow up recommendation: Routine yearly BI-RADS Category 1: NEGATIVE A "normal" or negative report should not discourage follow up or biopsy of a clinically significant f inding. A written summary of these findings will be mailed to the patient. The patient will be entered into a mammography reporting system which will generate a reminder letter for the patient's next appointmen t at the appropriate interval. The [employer] recommends yearly mammograms starting at age 40 and continuing as l garcía as a woman is in good health. Breast MRI is recommended for women with an approximate 20-25% or greater lifetime risk of breast cancer, including women with a strong family history of breast or ova keith cancer or who have been treated for Hodgkin's disease. Signer Name: Valdo Acharya DO Signed: 05/20/2021 9:44 AM Workstation Name: [employer]
== END 2021-05-19 09:34 | disposition home or self-care (01) ==
LOC: MAMMO 09:33
PROVIDERS: ATTEND Family Medicine
DX: Z12.31 Encounter for screening mammogram for malignant neoplasm of breast (principal); N64.89 Other specified disorders of breast
CPT/HCPCS: 77067

== ENCOUNTER 2021-05-23 07:28 | Emergency (ER) | payer MEDICARE ==
[2021-05-23] MEDS ORDERED: IPRATROPIUM/ALBUTEROL SULFATE 3 ML AMPUL.NEB IH ONE (08:14)
[2021-05-23] MEDS ORDERED: predniSONE 20 MG TAB PO ONE (08:14)
--- NOTE | 2021-05-23 08:19 | Emergency Department Report ---
ED Anxiety HPI - General Chief Complaint: Anxiety Stated Complaint: anxiety Time Seen by Provider: 05/23/21 07:58 Source: patient, EMS, old records reviewed Mode of arrival: Stretcher Limitations: No Limitations - History of Present Illness Initial Comments: 55-year-old female with past medical history of CHF, hypertension, diabetes, atrial fibrillation (currently on Eliquis), and asthma complicated by numerous intubations who presents to the hospital complains of shortness of breath due to asthma and anxiety. Patient takes her nebulizer treatments at home every 6 hours and woke up around 5 AM to take a breathing treatment. Patient also took her a.m. medications including but not limited to Eliquis, metoprolol, and her "nerve pain medication". Patient thinks that her nerve pain medication caused her to have an anxiety attack with the symptoms of breathing fast and increased wheezing. Patient took a hydrocodone and hydroxyzine pill after EMS arrival. Patient was treated in route with supplemental oxygen and reports that her anxiety is much improved. She still has some residual shortness of breath and chest tightness secondary to asthma. She denies fever or cough. - Related Data Home Medications: Home Medications Medication Instructions Recorded Confirmed Last Taken ALBUTEROL NEB's [Proventil 0.083% 1 vial INHALATION QID PRN 01/19/21 01/19/21 Unknown NEBS] Bimatoprost 0.01%(Nf) 1 drop OU QHS 01/19/21 01/19/21 Unknown Furosemide [Lasix TAB] 20 mg PO QDAY 01/19/21 01/19/21 Unknown Glimepiride [Amaryl] 4 mg PO QDAY 01/19/21 01/19/21 Unknown Loratadine 10 mg PO QDAY 01/19/21 01/19/21 Unknown lisinopriL [Zestril TAB] 40 mg PO QDAY 01/19/21 01/19/21 Unknown Previous Rx's Medication Instructions Recorded Last Taken Type Montelukast [Singulair] 10 mg PO QHS #30 tablet 01/06/20 01/09/21 Rx Albuterol Mdi (or & Nicu Only) 2 puff IH QID PRN #1 inhalation 03/08/20 12/24/20 Rx [ProAir HFA Inhaler] Metoprolol [Lopressor TAB] 25 mg PO Q8HR #90 tablet 08/19/20 Unknown Rx Apixaban [Eliquis] 5 mg PO Q12HR 90 Days tablet 01/20/21 Unknown Rx Meloxicam [Mobic] 7.5 mg PO QDAY PRN #12 tablet 02/23/21 Unknown Rx methOCARBAMOL [Robaxin TAB] 500 mg PO BID PRN #14 tab 02/23/21 Unknown Rx Arformoterol Nebu [Brovana Nebu] 15 mcg IH Q12HRT 90 Days ml 03/05/21 Unknown Rx Fluticasone/Umeclidin/Vilanter 1 each IH DAILY #1 blst.w.dev 03/05/21 Unknown Rx [Trelegy Ellipta 200-62.5-25] hydrOXYzine HCL [Atarax] 25 mg PO Q6HR PRN #12 tablet 03/05/21 Unknown Rx Azithromycin [Zithromax Z-MERARY] 250 mg PO DAILY #6 tablet 03/17/21 Unknown Rx Naproxen 375 mg PO BID PRN #20 tablet 03/25/21 Unknown Rx hydrOXYzine HCL [Atarax] 25 mg PO Q6HR PRN #14 tablet 03/25/21 Unknown Rx Albuterol Mdi (or & Nicu Only) 2 puff IH QID PRN #1 inhalation 03/29/21 Unknown Rx [ProAir HFA Inhaler] Benzonatate [Tessalon Perles] 100 mg PO Q8HR #20 capsule 03/29/21 Unknown Rx Montelukast [Singulair] 10 mg PO QPM #14 tablet 03/29/21 Unknown Rx predniSONE [Deltasone] 50 mg PO QDAY #5 tab 03/29/21 Unknown Rx Benzonatate [Tessalon Perles] 100 mg PO Q8HR PRN #12 capsule 04/05/21 Unknown Rx Budesonide [Pulmicort Respules] 0.5 mg IH Q12HRT 90 Days nebu 05/23/21 Unknown Rx Prednisone [predniSONE 10 mg 10 mg PO .TAPER #1 tab.ds.pk 05/23/21 Unknown Rx (6-Day Pack, 21 Tabs)] Allergies/Adverse Reactions: Allergies Allergy/AdvReac Type Severity Reaction Status Date / Time amoxicillin Allergy Anaphylaxis Verified 04/05/21 06:46 Penicillins Allergy Rash Verified 04/05/21 06:46 seafood Allergy Severe Anaphylaxis Uncoded 03/16/17 01:08 peanuts Allergy Anaphylaxis Uncoded 09/20/19 12:06 ED Review of Systems ROS: Stated complaint: anxiety Other details as noted in HPI Comment: All other systems reviewed and negative ED Past Medical Hx - Past Medical History Hx Hypertension: Yes Hx Heart Attack/AMI: No Hx Congestive Heart Failure: Yes Hx Diabetes: Yes Hx Pulmonary Embolism: No Hx GERD: Yes Hx Liver Disease: No Hx Renal Disease: No Hx Sickle Cell Disease: No Hx Arthritis: Yes Hx Headaches / Migraines: No Hx Seizures: No Hx Kidney Stones: No Hx Psychiatric Treatment: Yes (Anxiety) Hx Asthma: Yes Hx COPD: Yes Hx Tuberculosis: No Hx HIV: No Additional medical history: Intubated x 9. heart murmur. osteoporosis. hearing loss in [place] - Surgical History Hx Coronary Stent: No Hx Open Heart Surgery: No Hx Pacemaker: No Hx Internal Defibrillator: No Hx Cholecystectomy: No Hx Appendectomy: No Hx Breast Surgery: No Additional Surgical History: cataracts, nasal surg, tubal ligation. bilateral foot. Left shoulder surgery, R. knee sx / EYE SURGERY - Social History Smoking Status: Never Smoker - Medications Home Medications: Home Medications Medication Instructions Recorded Confirmed Last Taken Type Montelukast [Singulair] 10 mg PO QHS #30 tablet 01/06/20 01/19/21 01/09/21 Rx Albuterol Mdi (or & Nicu Only) 2 puff IH QID PRN #1 inhalation 03/08/20 01/19/21 12/24/20 Rx [ProAir HFA Inhaler] Metoprolol [Lopressor TAB] 25 mg PO Q8HR #90 tablet 08/19/20 01/19/21 Unknown Rx ALBUTEROL NEB's [Proventil 0.083% 1 vial INHALATION QID PRN 01/19/21 01/19/21 Unknown History NEBS] Bimatoprost 0.01%(Nf) 1 drop OU QHS 01/19/21 01/19/21 Unknown History Furosemide [Lasix TAB] 20 mg PO QDAY 01/19/21 01/19/21 Unknown History Glimepiride [Amaryl] 4 mg PO QDAY 01/19/21 01/19/21 Unknown History Loratadine 10 mg PO QDAY 01/19/21 01/19/21 Unknown History lisinopriL [Zestril TAB] 40 mg PO QDAY 01/19/21 01/19/21 Unknown History Apixaban [Eliquis] 5 mg PO Q12HR 90 Days tablet 01/20/21 Unknown Rx Meloxicam [Mobic] 7.5 mg PO QDAY PRN #12 tablet 02/23/21 Unknown Rx methOCARBAMOL [Robaxin TAB] 500 mg PO BID PRN #14 tab 02/23/21 Unknown Rx Arformoterol Nebu [Brovana Nebu] 15 mcg IH Q12HRT 90 Days ml 03/05/21 Unknown Rx Fluticasone/Umeclidin/Vilanter 1 each IH DAILY #1 blst.w.dev 03/05/21 Unknown Rx [Trelegy Ellipta 200-62.5-25] hydrOXYzine HCL [Atarax] 25 mg PO Q6HR PRN #12 tablet 03/05/21 Unknown Rx Azithromycin [Zithromax Z-MERARY] 250 mg PO DAILY #6 tablet 03/17/21 Unknown Rx Naproxen 375 mg PO BID PRN #20 tablet 03/25/21 Unknown Rx hydrOXYzine HCL [Atarax] 25 mg PO Q6HR PRN #14 tablet 03/25/21 Unknown Rx Albuterol Mdi (or & Nicu Only) 2 puff IH QID PRN #1 inhalation 03/29/21 Unknown Rx [ProAir HFA Inhaler] Benzonatate [Tessalon Perles] 100 mg PO Q8HR #20 capsule 03/29/21 Unknown Rx Montelukast [Singulair] 10 mg PO QPM #14 tablet 03/29/21 Unknown Rx predniSONE [Deltasone] 50 mg PO QDAY #5 tab 03/29/21 Unknown Rx Benzonatate [Tessalon Perles] 100 mg PO Q8HR PRN #12 capsule 04/05/21 Unknown Rx Budesonide [Pulmicort Respules] 0.5 mg IH Q12HRT 90 Days nebu 05/23/21 Unknown Rx Prednisone [predniSONE 10 mg 10 mg PO .TAPER #1 tab.ds.pk 05/23/21 Unknown Rx (6-Day Pack, 21 Tabs)] ED Physical Exam - General Limitations: No Limitations - Other Other exam information: General: No acute distress Head: Atraumatic Eyes: normal appearance ENT: Moist mucous membranes Neck: Normal appearance, no midline tenderness Chest: Some breathlessness with speaking with fair air movement without significant wheeze CV: Abdomen: Soft, normal bowel sounds, nontender, nondistended, no rebound or guarding Back: Normal inspection Extremity: Normal inspection, full range of motion, no calf tenderness or leg edema Neuro: Alert O x 3, no facial asymmetry, speech clear, no gross motor sensory deficit Psych: Appropriate behavior Skin: No rash ED Course Vital Signs 05/23/21 05/23/21 05/23/21 07:32 08:38 10:09 Temperature 98.0 F 98.5 F Pulse Rate 58 L 73 Pulse Rate [ 65 Anterior Bilateral Throughout] Respiratory 16 16 Rate Respiratory 18 Rate [Anterior Bilateral Throughout] Blood Pressure 149/69 114/75 [Left] O2 Sat by Pulse 97 96 Oximetry ED Medical Decision Making - EKG Data -: EKG Interpreted by Me (Repeat requested and performed at 9:05 given abnormal lead III and aVF 8:25) EKG shows normal: sinus rhythm, intervals (Borderline prolonged NE interval 208), QRS complexes (Normal QRS duration), ST-T waves (No STEMI) Rate: normal - EKG Data When compared to previous EKG there are: no significant change - Radiology Data Radiology results: report reviewed CHEST 2 VIEWS INDICATION / CLINICAL INFORMATION: sob, wheezing. COMPARISON: 03/26/21 FINDINGS: SUPPORT DEVICES: None. HEART / MEDIASTINUM: No significant abnormality. LUNGS / PLEURA: No significant pulmonary or pleural abnormality. No pneumothorax. ADDITIONAL FINDINGS: No significant additional findings. IMPRESSION: 1. No acute findings. No change. - Medical Decision Making 55-year-old female presented to the hospital complaints of anxiety and asthma/COPD exacerbation. No signs of hypoxia. EKG unchanged. Chest x-ray unremarkable. Anxiety symptoms improved with pretreatment prior to arrival. Patient received further respiratory improvement with prednisone and 2 DuoNeb's here in the ED. Repeat vital signs unremarkable. Patient reports feeling better. Requesting a refill and Pulmicort. Prednisone will be prescribed and outpatient follow-up encouraged Critical Care Time: No Critical care attestation.: If time is entered above; I have spent that time in minutes in the direct care of this critically ill patient, excluding procedure time. ED Disposition Clinical Impression: Anxiety, Acute asthma exacerbation Disposition: HOME / SELF CARE / HOMELESS Is pt being admited?: No Does the pt Need Aspirin: No Condition: Stable Instructions: Asthma, Adult, Managing Anxiety, Adult Additional Instructions: Take the medication as prescribed. Follow-up with your doctor or doctor/clinic provided. Return if symptoms worsen as indicated by your discharge instructions. Prescriptions: Prednisone [predniSONE 10 mg (6-Day Pack, 21 Tabs)] 10 mg PO .TAPER #1 tab.ds.pk Budesonide [Pulmicort Respules] 0.5 mg IH Q12HRT 90 Days nebu Referrals: PRIMARY CARE, [Primary Care Provider] - 3-5 Days Time of Disposition: 10:50
[2021-05-23 10:10] VITALS: BP 114/75
[2021-05-23] MEDS ORDERED: predniSONE 20 MG TAB ONE (10:26)
--- NOTE | 2021-05-23 10:34 | XRay Report ---
CHEST 2 VIEWS INDICATION / CLINICAL INFORMATION: sob, wheezing. COMPARISON: 03/26/21 FINDINGS: SUPPORT DEVICES: None. HEART / MEDIASTINUM: No significant abnormality. LUNGS / PLEURA: No significant pulmonary or pleural abnormality. No pneumothorax. ADDITIONAL FINDINGS: No significant additional findings. IMPRESSION: 1. No acute findings. No change. Signer Name: Rhys Santacruz MD Signed: 05/23/2021 10:30 AM Workstation Name: [id number]
--- NOTE | 2021-05-23 14:42 | Electrocardiograph Report ---
[facility] Test Date: 2021-05-23 Test Time: 09:05:13 Pat Name: EDIE RENDON Department: Room: Gender: F [employer] Grinder: KAYLENE : 1965 Requested By: DOMI GARBER Order Number: [id number] Reading MD: Bro Serrano Measurements Intervals [place] Rate: 64 P: 56 MI: 208 QRS: 33 QRSD: 87 T: 16 QT: 448 QTc: 462 Interpretive Statements Sinus rhythm Borderline prolonged [place] interval Compared to ECG 05/23/2021 08:25:43 Left ventricular hypertrophy no longer present Electronically Signed On 05-23-2021 14:41:51 EST by Bro Serrano
--- NOTE | 2021-05-23 14:42 | Electrocardiograph Report ---
[facility] Test Date: 2021-05-23 Test Time: 08:25:43 Pat Name: EDIE RENDON Department: Room: Gender: F [employer]: KAYLENE : 1965 Requested By: DOMI GARBER Order Number: [id number] Reading MD: Bro Srerano Measurements Intervals [place] Rate: 63 P: -15 KS: 210 QRS: 2 QRSD: 89 T: 38 QT: 460 QTc: 470 Interpretive Statements Sinus rhythm Prolonged [place] interval Left ventricular hypertrophy Compared to ECG 03/26/2021 09:13:24 Left ventricular hypertrophy now present Electronically Signed On 05-23-2021 14:41:47 EST by Bro Serrano
== END 2021-05-23 11:01 | disposition home or self-care (01) ==
LOC: ED 07:28
DX: F41.9 Anxiety disorder, unspecified (principal); J45.901 Unspecified asthma with (acute) exacerbation; I10 Essential (primary) hypertension; E11.8 Type 2 diabetes mellitus with unspecified complications
CPT/HCPCS: 71046; 93005; 93010; 94640; 94644; 99284

== ENCOUNTER 2021-06-20 07:51 | Emergency (ER) | payer MEDICARE ==
[2021-06-20 08:16] VITALS: BP 126/89
[2021-06-20] MEDS ORDERED: hydrOXYzine HCL 25 MG TAB PO ONE (08:30)
[2021-06-20] MEDS ORDERED: IPRATROPIUM/ALBUTEROL SULFATE 3 ML AMPUL.NEB IH ONE (08:30)
--- NOTE | 2021-06-20 08:30 | Emergency Department Report ---
ED General Adult HPI - General Chief complaint: Chest Pain Stated complaint: CHEST TIGHT/BP HIG/SUGAR LOW Time Seen by Provider: 06/20/21 08:19 Source: patient Mode of arrival: Ambulatory Limitations: No Limitations - History of Present Illness Initial comments: Patient presents secondary shortness of breath. She has a history of "life- threatening asthma." She states that she has been on life support 9 or 10 times. She states that she was at home today. She was alone. Normally she has family around her. She started feeling as though she may have trouble breathing. Her throat felt tight. She has a nebulizer machine at home but states that when she uses it, it sometimes triggers her anxiety. She decided that she needed to be seen here for her treatment and to have her anxiety managed. Patient has no recent history of respiratory failure or intubation. She is not having any cough or congestion. There is no vomiting or diarrhea. She has no fevers or chills. She states that she just feels as though she may have an attack and did not want to have an attack at home due to her "life- threatening asthma." She does report that her chest feels tight and that is part of her asthma as well as her anxiety. It is only on the left side. That is what she "always has." Severity scale (0 -10): 9 - Related Data Home Medications Medication Instructions Recorded Confirmed Last Taken ALBUTEROL NEB's [Proventil 0.083% 1 vial INHALATION QID PRN 01/19/21 01/19/21 Unknown NEBS] Bimatoprost 0.01%(Nf) 1 drop OU QHS 01/19/21 01/19/21 Unknown Furosemide [Lasix TAB] 20 mg PO QDAY 01/19/21 01/19/21 Unknown Glimepiride [Amaryl] 4 mg PO QDAY 01/19/21 01/19/21 Unknown Loratadine 10 mg PO QDAY 01/19/21 01/19/21 Unknown lisinopriL [Zestril TAB] 40 mg PO QDAY 01/19/21 01/19/21 Unknown Previous Rx's Medication Instructions Recorded Last Taken Type Montelukast [Singulair] 10 mg PO QHS #30 tablet 01/06/20 01/09/21 Rx Albuterol Mdi (or & Nicu Only) 2 puff IH QID PRN #1 inhalation 03/08/20 12/24/20 Rx [ProAir HFA Inhaler] Metoprolol [Lopressor TAB] 25 mg PO Q8HR #90 tablet 08/19/20 Unknown Rx Apixaban [Eliquis] 5 mg PO Q12HR 90 Days tablet 01/20/21 Unknown Rx Meloxicam [Mobic] 7.5 mg PO QDAY PRN #12 tablet 02/23/21 Unknown Rx Arformoterol Nebu [Brovana Nebu] 15 mcg IH Q12HRT 90 Days ml 03/05/21 Unknown Rx Fluticasone/Umeclidin/Vilanter 1 each IH DAILY #1 blst.w.dev 03/05/21 Unknown Rx [Trelegy Ellipta 200-62.5-25] hydrOXYzine HCL [Atarax] 25 mg PO Q6HR PRN #12 tablet 03/05/21 Unknown Rx Albuterol Mdi (or & Nicu Only) 2 puff IH QID PRN #1 inhalation 03/29/21 Unknown Rx [ProAir HFA Inhaler] Montelukast [Singulair] 10 mg PO QPM #14 tablet 03/29/21 Unknown Rx Budesonide [Pulmicort Respules] 0.5 mg IH Q12HRT 90 Days nebu 05/23/21 Unknown Rx Allergies Allergy/AdvReac Type Severity Reaction Status Date / Time amoxicillin Allergy Anaphylaxis Verified 04/05/21 06:46 Penicillins Allergy Rash Verified 04/05/21 06:46 seafood Allergy Severe Anaphylaxis Uncoded 03/16/17 01:08 peanuts Allergy Anaphylaxis Uncoded 09/20/19 12:06 ED Review of Systems ROS: Stated complaint: CHEST TIGHT/BP HIG/SUGAR LOW Other details as noted in HPI Comment: All other systems reviewed and negative Constitutional: denies: fever Eyes: denies: vision change ENT: as per HPI Respiratory: see HPI Cardiovascular: as per HPI Endocrine: denies: unexplained weight loss Gastrointestinal: denies: abdominal pain Genitourinary: denies: dysuria Musculoskeletal: denies: back pain Skin: denies: rash Neurological: denies: headache Hematological/Lymphatic: denies: easy bruising ED Past Medical Hx - Past Medical History Hx Hypertension: Yes Hx Heart Attack/AMI: No Hx Congestive Heart Failure: Yes Hx Diabetes: Yes Hx Pulmonary Embolism: No Hx GERD: Yes Hx Liver Disease: No Hx Renal Disease: No Hx Sickle Cell Disease: No Hx Arthritis: Yes Hx Headaches / Migraines: No Hx Seizures: No Hx Kidney Stones: No Hx Psychiatric Treatment: Yes (Anxiety) Hx Asthma: Yes Hx COPD: Yes Hx Tuberculosis: No Hx HIV: No Additional medical history: Intubated x 9. heart murmur. osteoporosis. hearing loss in [place] - Surgical History Hx Coronary Stent: No Hx Open Heart Surgery: No Hx Pacemaker: No Hx Internal Defibrillator: No Hx Cholecystectomy: No Hx Appendectomy: No Hx Breast Surgery: No Additional Surgical History: cataracts, nasal surg, tubal ligation. bilateral foot. Left shoulder surgery, R. knee sx / EYE SURGERY - Family History Family history: hypertension - Social History Smoking Status: Never Smoker - Medications Home Medications: Home Medications Medication Instructions Recorded Confirmed Last Taken Type Montelukast [Singulair] 10 mg PO QHS #30 tablet 01/06/20 01/19/21 01/09/21 Rx Albuterol Mdi (or & Nicu Only) 2 puff IH QID PRN #1 inhalation 03/08/20 01/19/21 12/24/20 Rx [ProAir HFA Inhaler] Metoprolol [Lopressor TAB] 25 mg PO Q8HR #90 tablet 08/19/20 01/19/21 Unknown Rx ALBUTEROL NEB's [Proventil 0.083% 1 vial INHALATION QID PRN 01/19/21 01/19/21 Unknown History NEBS] Bimatoprost 0.01%(Nf) 1 drop OU QHS 01/19/21 01/19/21 Unknown History Furosemide [Lasix TAB] 20 mg PO QDAY 01/19/21 01/19/21 Unknown History Glimepiride [Amaryl] 4 mg PO QDAY 01/19/21 01/19/21 Unknown History Loratadine 10 mg PO QDAY 01/19/21 01/19/21 Unknown History lisinopriL [Zestril TAB] 40 mg PO QDAY 01/19/21 01/19/21 Unknown History Apixaban [Eliquis] 5 mg PO Q12HR 90 Days tablet 01/20/21 Unknown Rx Meloxicam [Mobic] 7.5 mg PO QDAY PRN #12 tablet 02/23/21 Unknown Rx Arformoterol Nebu [Brovana Nebu] 15 mcg IH Q12HRT 90 Days ml 03/05/21 Unknown Rx Fluticasone/Umeclidin/Vilanter 1 each IH DAILY #1 blst.w.dev 03/05/21 Unknown Rx [Trelegy Ellipta 200-62.5-25] hydrOXYzine HCL [Atarax] 25 mg PO Q6HR PRN #12 tablet 03/05/21 Unknown Rx Albuterol Mdi (or & Nicu Only) 2 puff IH QID PRN #1 inhalation 03/29/21 Unknown Rx [ProAir HFA Inhaler] Montelukast [Singulair] 10 mg PO QPM #14 tablet 03/29/21 Unknown Rx Budesonide [Pulmicort Respules] 0.5 mg IH Q12HRT 90 Days nebu 05/23/21 Unknown Rx ED Physical Exam - General Limitations: No Limitations, Other (Pulse ox noted and normal) General appearance: alert, in no apparent distress, anxious - Head Head exam: Present: atraumatic, normocephalic - Eye Eye exam: Present: normal appearance, PERRL, EOMI. Absent: scleral icterus - ENT ENT exam: Present: normal orophraynx, normal external ear exam - Neck Neck exam: Present: normal inspection. Absent: meningismus - Respiratory Respiratory exam: Present: normal lung sounds bilaterally, other (She is speaking in complete sentences without respiratory distress). Absent: respirato ry distress - Cardiovascular Cardiovascular Exam: Present: regular rate, normal rhythm - GI/Abdominal GI/Abdominal exam: Present: soft. Absent: distended - Extremities Exam Extremities exam: Present: normal capillary refill. Absent: pedal edema, calf tenderness - Back Exam Back exam: Absent: CVA tenderness (R), CVA tenderness (L) - Neurological Exam Neurological exam: Present: alert, oriented X3, CN II-XII intact, normal gait. Absent: motor sensory deficit - Psychiatric Psychiatric exam: Present: anxious - Skin Skin exam: Present: warm, dry ED Course Vital Signs 06/20/21 08:15 Temperature 97.5 F L Pulse Rate 69 Respiratory 18 Rate Blood Pressure 126/89 [Right] O2 Sat by Pulse 100 Oximetry - Reevaluation(s) Reevaluation #1: 06/20/21 08:30 DuoNeb was ordered. Old records reviewed. Reevaluation #2: 06/20/21 08:46 Patient was discharged after the breathing treatment. ED Medical Decision Making - Lab Data Rhythm strip: Normal sinus rhythm without ectopy. Monitor observe 10 seconds. - EKG Data -: EKG Interpreted by Me - EKG Data 06/20/21 08:46 0807-EKG shows normal sinus rhythm at 66. QRS is normal at 84. QT corrected is normal at 164. There is no ST elevation to suggest STEMI. Patient has ST depression in lead III only. There is good R wave progression. There is no change from prior EKG. - Medical Decision Making Patient presents with reports of difficulty breathing and chest discomfort which she states that she always has. Fundamentally I believe that this is more anxiety as opposed to asthma exacerbation. She was not wheezing. She was not hypoxic. She was not tachycardic. She was in no respiratory distress. She was speaking in complete sentences. Regardless, she was given a nebulizer treatment to help allay her fears and symptomatically improve her respiratory discomfort. She was also given Vistaril to help with anxiety. Patient was subsequently discharged with outpatient evaluation and follow-up. She certainly does not have symptoms that suggest pneumonia. She does not have adventitious breath sounds suggestive of heart failure or pneumonia. There is no concern for pneumothorax. I do not believe this represents ACS as she does not have any symptoms suggestive of ACS. She states that she has chest tightness on the left side every time her asthma acts up. Critical Care Time: No Critical care attestation.: If time is entered above; I have spent that time in minutes in the direct care of this critically ill patient, excluding procedure time. ED Disposition Clinical Impression: Shortness of breath, Anxiety Disposition: 01 HOME / SELF CARE / HOMELESS Is pt being admited?: No Condition: Stable Instructions: Shortness of Breath, Adult, [id number], Managing Anxiety, Adult Additional Instructions: Continue home medication. Drink plenty water. Follow-up with your family doctor or the referral doctor for recheck and further management. Referrals: PRIMARY CAREMD [Primary Care Provider] - 3-5 Days ALICIA HOUGH MD [Staff Physician] - 3-5 Days
--- NOTE | 2021-06-20 11:56 | Electrocardiograph Report ---
[facility] Test Date: 2021-06-20 Test Time: 08:07:15 Pat Name: EDIE RENDON Department: Room: Gender: F [employer] Dental Assistant: EVELINA : 1965 Requested By: MANUELA SIERRA Order Number: [id number] Reading MD: Bro Serrano Measurements Intervals [place] Rate: 66 P: 70 [place]: 204 QRS: 42 QRSD: 84 T: 33 QT: 441 QTc: 464 Interpretive Statements Sinus rhythm Borderline prolonged [place] interval Consider left ventricular hypertrophy Compared to ECG 05/23/2021 09:05:13 No significant changes Electronically Signed On 06-20-2021 11:56:06 EST by Bro Serrano
== END 2021-06-20 10:18 | disposition home or self-care (01) ==
LOC: ED 07:51
DX: R06.02 Shortness of breath (principal); F41.9 Anxiety disorder, unspecified; Z88.0 Allergy status to penicillin; Z91.013 Allergy to seafood; Z91.010 Allergy to peanuts
CPT/HCPCS: 93005; 93010; 94640; 99283; Q0177; 94644

== ENCOUNTER 2021-06-25 12:30 | Emergency (ER) | payer MEDICARE ==
--- NOTE | 2021-06-25 15:02 | Emergency Department Report ---
ED Lower Extremity HPI - General Chief Complaint: Extremity Injury, Lower Stated Complaint: RT FOOT INJURY Source: patient Mode of arrival: Ambulatory Limitations: No Limitations - History of Present Illness Initial Comments: 55-year-old female presents to the ED complaining of right foot pain. Patient states that she normally walks with a cane and states that while she was at the [employer] today she missed stepped while getting on the examination table. Patient states that she noticed a cracking sound to her right foot. Patient has mild swelling noted to the right. No distracting injury noted. No obvious deformity noted. Patient states pain when bearing weight. Patient is current wheelchair. Patient is alert and oriented x3. No acute distress noted. No ill appearance noted Injury: Foot: Right Severity scale (0 -10): 7 Improves With: nothing Worsens With: weight bearing Associated Symptoms: snap/pop sensation, swelling - Related Data Home Medications Medication Instructions Recorded Confirmed Last Taken ALBUTEROL NEB's [Proventil 0.083% 1 vial INHALATION QID PRN 01/19/21 01/19/21 Unknown NEBS] Bimatoprost 0.01%(Nf) 1 drop OU QHS 01/19/21 01/19/21 Unknown Furosemide [Lasix TAB] 20 mg PO QDAY 01/19/21 01/19/21 Unknown Glimepiride [Amaryl] 4 mg PO QDAY 01/19/21 01/19/21 Unknown Loratadine 10 mg PO QDAY 01/19/21 01/19/21 Unknown lisinopriL [Zestril TAB] 40 mg PO QDAY 01/19/21 01/19/21 Unknown Previous Rx's Medication Instructions Recorded Last Taken Type Montelukast [Singulair] 10 mg PO QHS #30 tablet 01/06/20 01/09/21 Rx Albuterol Mdi (or & Nicu Only) 2 puff IH QID PRN #1 inhalation 03/08/20 12/24/20 Rx [ProAir HFA Inhaler] Metoprolol [Lopressor TAB] 25 mg PO Q8HR #90 tablet 08/19/20 Unknown Rx Apixaban [Eliquis] 5 mg PO Q12HR 90 Days tablet 01/20/21 Unknown Rx Meloxicam [Mobic] 7.5 mg PO QDAY PRN #12 tablet 02/23/21 Unknown Rx Arformoterol Nebu [Brovana Nebu] 15 mcg IH Q12HRT 90 Days ml 03/05/21 Unknown Rx Fluticasone/Umeclidin/Vilanter 1 each IH DAILY #1 blst.w.dev 03/05/21 Unknown Rx [Trelegy Ellipta 200-62.5-25] hydrOXYzine HCL [Atarax] 25 mg PO Q6HR PRN #12 tablet 03/05/21 Unknown Rx Albuterol Mdi (or & Nicu Only) 2 puff IH QID PRN #1 inhalation 03/29/21 Unknown Rx [ProAir HFA Inhaler] Montelukast [Singulair] 10 mg PO QPM #14 tablet 03/29/21 Unknown Rx Budesonide [Pulmicort Respules] 0.5 mg IH Q12HRT 90 Days nebu 05/23/21 Unknown Rx Acetaminophen/Codeine [Tylenol 1 tab PO Q6H PRN 4 Days #12 tab 06/25/21 Unknown Rx /Codeine # 3 tab] Allergies Allergy/AdvReac Type Severity Reaction Status Date / Time amoxicillin Allergy Anaphylaxis Verified 04/05/21 06:46 Penicillins Allergy Rash Verified 04/05/21 06:46 seafood Allergy Severe Anaphylaxis Uncoded 03/16/17 01:08 peanuts Allergy Anaphylaxis Uncoded 09/20/19 12:06 ED Review of Systems ROS: Stated complaint: RT FOOT INJURY Other details as noted in HPI Constitutional: denies: chills, fever Eyes: denies: eye pain, eye discharge, vision change ENT: denies: ear pain, throat pain Respiratory: denies: cough, shortness of breath, wheezing Cardiovascular: denies: chest pain, palpitations Endocrine: no symptoms reported Gastrointestinal: denies: abdominal pain, nausea, diarrhea Genitourinary: denies: urgency, dysuria, discharge Musculoskeletal: denies: back pain, joint swelling, arthralgia Skin: denies: rash, lesions Neurological: denies: headache, weakness, paresthesias Psychiatric: denies: anxiety, depression Hematological/Lymphatic: denies: easy bleeding, easy bruising ED Past Medical Hx - Past Medical History Hx Hypertension: Yes Hx Heart Attack/AMI: No Hx Congestive Heart Failure: Yes Hx Diabetes: Yes Hx Pulmonary Embolism: No Hx GERD: Yes Hx Liver Disease: No Hx Renal Disease: No Hx Sickle Cell Disease: No Hx Arthritis: Yes Hx Headaches / Migraines: No Hx Seizures: No Hx Kidney Stones: No Hx Psychiatric Treatment: Yes (Anxiety) Hx Asthma: Yes Hx COPD: Yes Hx Tuberculosis: No Hx HIV: No Additional medical history: Intubated x 9. heart murmur. osteoporosis. heari ng loss in [place] - Surgical History Hx Coronary Stent: No Hx Open Heart Surgery: No Hx Pacemaker: No Hx Internal Defibrillator: No Hx Cholecystectomy: No Hx Appendectomy: No Hx Breast Surgery: No Additional Surgical History: cataracts, nasal surg, tubal ligation. bilateral foot. Left shoulder surgery, R. knee sx / EYE SURGERY - Social History Smoking Status: Never Smoker - Medications Home Medications: Home Medications Medication Instructions Recorded Confirmed Last Taken Type Montelukast [Singulair] 10 mg PO QHS #30 tablet 01/06/20 01/19/21 01/09/21 Rx Albuterol Mdi (or & Nicu Only) 2 puff IH QID PRN #1 inhalation 03/08/20 01/19/21 12/24/20 Rx [ProAir HFA Inhaler] Metoprolol [Lopressor TAB] 25 mg PO Q8HR #90 tablet 08/19/20 01/19/21 Unknown Rx ALBUTEROL NEB's [Proventil 0.083% 1 vial INHALATION QID PRN 01/19/21 01/19/21 Unknown History NEBS] Bimatoprost 0.01%(Nf) 1 drop OU QHS 01/19/21 01/19/21 Unknown History Furosemide [Lasix TAB] 20 mg PO QDAY 01/19/21 01/19/21 Unknown History Glimepiride [Amaryl] 4 mg PO QDAY 01/19/21 01/19/21 Unknown History Loratadine 10 mg PO QDAY 01/19/21 01/19/21 Unknown History lisinopriL [Zestril TAB] 40 mg PO QDAY 01/19/21 01/19/21 Unknown History Apixaban [Eliquis] 5 mg PO Q12HR 90 Days tablet 01/20/21 Unknown Rx Meloxicam [Mobic] 7.5 mg PO QDAY PRN #12 tablet 02/23/21 Unknown Rx Arformoterol Nebu [Brovana Nebu] 15 mcg IH Q12HRT 90 Days ml 03/05/21 Unknown Rx Fluticasone/Umeclidin/Vilanter 1 each IH DAILY #1 blst.w.dev 03/05/21 Unknown Rx [Trelegy Ellipta 200-62.5-25] hydrOXYzine HCL [Atarax] 25 mg PO Q6HR PRN #12 tablet 03/05/21 Unknown Rx Albuterol Mdi (or & Nicu Only) 2 puff IH QID PRN #1 inhalation 03/29/21 Unknown Rx [ProAir HFA Inhaler] Montelukast [Singulair] 10 mg PO QPM #14 tablet 03/29/21 Unknown Rx Budesonide [Pulmicort Respules] 0.5 mg IH Q12HRT 90 Days nebu 05/23/21 Unknown Rx Acetaminophen/Codeine [Tylenol 1 tab PO Q6H PRN 4 Days #12 tab 06/25/21 Unknown Rx /Codeine # 3 tab] ED Physical Exam - General Limitations: No Limitations General appearance: alert, in no apparent distress - Head Head exam: Present: atraumatic, normocephalic - Eye Eye exam: Present: normal appearance - ENT ENT exam: Present: mucous membranes moist - Neck Neck exam: Present: normal inspection - Respiratory Respiratory exam: Present: normal lung sounds bilaterally. Absent: respiratory distress - Cardiovascular Cardiovascular Exam: Present: regular rate, normal rhythm. Absent: systolic murmur, diastolic murmur, rubs, gallop - GI/Abdominal GI/Abdominal exam: Present: soft, normal bowel sounds - Extremities Exam Extremities exam: Present: normal inspection - Back Exam Back exam: Present: normal inspection - Neurological Exam Neurological exam: Present: alert, oriented X3 - Psychiatric Psychiatric exam: Present: normal affect, normal mood - Skin Skin exam: Present: warm, dry, intact, normal color. Absent: rash ED Course Vital Signs 06/25/21 06/25/21 13:07 16:18 Temperature 98.3 F 98.5 F Pulse Rate 79 69 Respiratory 16 18 Rate Blood Pressure 146/76 125/79 [Left] O2 Sat by Pulse 95 99 Oximetry ED Lower Extremity MDM - Radiology Data [facility] [address] [place] [address] XRay Report Signed Patient: EDIE RENDON MR#: [id number] : 1965 Acct:[id number] Age/Sex: 55 / F ADM Date: 06/25/21 Loc: ED Attending Dr: Ordering Physician: ALTAF WARD Date of Service: 06/25/21 Procedure(s): XR foot 2V RT Accession Number(s): [id number] cc: ALTAF WARD Fluoro Time In Minutes: RIGHT FOOT 2 VIEWS INDICATION / CLINICAL INFORMATION: right foot pain COMPARISON: None available. FINDINGS: BONES and JOINT(S): No acute fracture or subluxation. Mild degenerative arthrosis is seen at the first MTP joint. No other significant arthritic changes. SOFT TISSUES: There is nonspecific splaying of the first and second toes wi thout identification of an associated mass or other soft tissue abnormality. No other significant abnormality. ADDITIONAL FINDINGS: None. IMPRESSION: 1. Nonspecific splaying of the right first and second toes. Please correlate with the clinical findings. 2. No other acute findings to explain the patient's right foot pain. - Medical Decision Making 55-year-old female presents to the ED complaining of right foot pain. Patient states that she normally walks with a cane and states that while she was at the [employer] today she missed stepped while getting on the examination table. Patient states that she noticed a cracking sound to her right foot. Patient has mild swelling noted to the right. No distracting injury noted. No obvious deformity noted. Patient states pain when bearing weight. Patient is current wheelchair. Patient is alert and oriented x3. No acute distress noted. No ill appearance noted Rechecked the patient is resting quietly quietly and comfortable and feeling better. I discussed the results of diagnostic study, my clinical impression and the plan for further treatment with the patient. Patient agrees with plan and discharge at this present time. All question addressed. I have given the patient instruction regarding a diagnosis ,expectation ,follow- up and return precaution. I explained to the patient that emergent condition may arise and to return to the ED for new worsen and any new persisting condition. I have explained the importance of following up with the primary care physician or referral physician listed below has instructed. The patient verbalized understanding of discharge instruction. Critical care attestation.: If time is entered above; I have spent that time in minutes in the direct care of this critically ill patient, excluding procedure time. ED Disposition Clinical Impression: Right foot pain Disposition: HOME / SELF CARE / HOMELESS Is pt being admited?: No Does the pt Need Aspirin: No Condition: Stable Instructions: How to Use Cold Therapy, [id number], Foot Pain Additional Instructions: Tylenol as needed for pain Return to ED for any worsening symptom Prescriptions: Acetaminophen/Codeine [Tylenol /Codeine # 3 tab] 1 tab PO Q6H PRN 4 Days #12 tab PRN Reason: Pain, Moderate (4-6) Referrals: JANICE TORRES MD [Staff Physician] - 3-5 Days Forms: Work/School Release Form(ED)
--- NOTE | 2021-06-25 15:41 | XRay Report ---
RIGHT FOOT 2 VIEWS INDICATION / CLINICAL INFORMATION: right foot pain COMPARISON: None available. FINDINGS: BONES and JOINT(S): No acute fracture or subluxation. Mild degenerative arthrosis is seen at the firs t MTP joint. No other significant arthritic changes. SOFT TISSUES: There is nonspecific splaying of the first and second toes without identification of an associated mass or other soft tissue abnormality. No other significant abnormality. ADDITIONAL FINDINGS: None. IMPRESSION: 1. Nonspecific splaying of the right first and second toes. Please correlate with the clinical findin gs. 2. No other acute findings to explain the patient's right foot pain. Signer Name: Luis Eduardo Hall MD Signed: 06/25/2021 3:36 PM Workstation Name: [id number]
[2021-06-25 16:19] VITALS: BP 125/79
[2021-06-25] MEDS ORDERED: KETOROLAC 30 MG/1 ML INJ IM ONE (16:21)
== END 2021-06-25 17:07 | disposition home or self-care (01) ==
LOC: ED 12:30
DX: M79.671 Pain in right foot (principal); I11.0 Hypertensive heart disease with heart failure; I50.9 Heart failure, unspecified; E11.9 Type 2 diabetes mellitus without complications; K21.9 Gastro-esophageal reflux disease without esophagitis; F41.9 Anxiety disorder, unspecified; M19.90 Unspecified osteoarthritis, unspecified site; J44.9 Chronic obstructive pulmonary disease, unspecified; Z88.0 Allergy status to penicillin; Z91.013 Allergy to seafood; Z88.8 Allergy status to other drugs, medicaments and biological substances; Z79.899 Other long term (current) drug therapy; Z91.010 Allergy to peanuts
CPT/HCPCS: 73620; 96372; 99283; J1885

== ENCOUNTER 2021-07-09 20:43 | Emergency (ER) | payer MEDICARE | END 2021-07-09 21:11 | disposition left against medical advice (07) | LOC: ED 20:43 | DX: R06.2 Wheezing (principal); Z53.21 Procedure and treatment not carried out due to patient leaving prior to being seen by health care provider ==

== ENCOUNTER 2021-08-01 07:31 | Emergency (ER) | payer MEDICARE ==
[2021-08-01] MEDS ORDERED: PANTOPRAZOLE 40 MG TAB PO ONE (11:40)
[2021-08-01] MEDS ORDERED: ACETAMINOPHEN 325 MG TAB PO ONE (11:40)
--- NOTE | 2021-08-01 11:46 | Emergency Department Report ---
ED General Adult HPI - General Chief complaint: Anxiety Stated complaint: ANXIETY,ASTHMA Time Seen by Provider: 08/01/21 11:06 Source: patient, family, RN notes reviewed, old records reviewed Mode of arrival: Ambulatory Limitations: No Limitations - History of Present Illness Initial comments: Cardiology: [facility], Dr. Stokes The patient is a 55-year-old female, whom I evaluated in the past. The patient presents to the ER today with a complaint of "smothering", on her anterior neck, which started at around 630 this morning, which is now resolved, and a complaint of bilateral anterior chest wall/breast pain, which does not radiate to the back, arms or neck, without vomiting, exertional shortness of breath, and fever. The patient denies additional injuries and complaints, but endorses "I think you had an anxiety attack." She takes systemic anticoagulation, Eliquis, and reports compliance with her Eliquis therapy. She reports compliance with her current medications. The patient endorses doing some heavy lifting over the past couple days, but has not taken any pain medication. The patient denies travel, surgery, immobilization, DVT/PE risk factors. She denies urinary symptoms and abdominal pain. -: Gradual, Sudden, days(s) Location: neck, chest Radiation: non-radiation Quality: other (Smothering and aching) Consistency: intermittent Improves with: none Worsens with: none - Related Data Home Medications Medication Instructions Recorded Confirmed Last Taken ALBUTEROL NEB's [Proventil 0.083% 1 vial INHALATION QID PRN 01/19/21 01/19/21 Unknown NEBS] Bimatoprost 0.01%(Nf) 1 drop OU QHS 01/19/21 01/19/21 Unknown Furosemide [Lasix TAB] 20 mg PO QDAY 01/19/21 01/19/21 Unknown Glimepiride [Amaryl] 4 mg PO QDAY 01/19/21 01/19/21 Unknown Loratadine 10 mg PO QDAY 01/19/21 01/19/21 Unknown lisinopriL [Zestril TAB] 40 mg PO QDAY 01/19/21 01/19/21 Unknown Previous Rx's Medication Instructions Recorded Last Taken Type Montelukast [Singulair] 10 mg PO QHS #30 tablet 01/06/20 01/09/21 Rx Albuterol Mdi (or & Nicu Only) 2 puff IH QID PRN #1 inhalation 03/08/20 12/24/20 Rx [ProAir HFA Inhaler] Metoprolol [Lopressor TAB] 25 mg PO Q8HR #90 tablet 08/19/20 Unknown Rx Apixaban [Eliquis] 5 mg PO Q12HR 90 Days tablet 01/20/21 Unknown Rx Meloxicam [Mobic] 7.5 mg PO QDAY PRN #12 tablet 02/23/21 Unknown Rx Arformoterol Nebu [Brovana Nebu] 15 mcg IH Q12HRT 90 Days ml 03/05/21 Unknown Rx Fluticasone/Umeclidin/Vilanter 1 each IH DAILY #1 blst.w.dev 03/05/21 Unknown Rx [Trelegy Ellipta 200-62.5-25] hydrOXYzine HCL [Atarax] 25 mg PO Q6HR PRN #12 tablet 03/05/21 Unknown Rx Albuterol Mdi (or & Nicu Only) 2 puff IH QID PRN #1 inhalation 03/29/21 Unknown Rx [ProAir HFA Inhaler] Montelukast [Singulair] 10 mg PO QPM #14 tablet 03/29/21 Unknown Rx Budesonide [Pulmicort Respules] 0.5 mg IH Q12HRT 90 Days nebu 05/23/21 Unknown Rx Acetaminophen/Codeine [Tylenol 1 tab PO Q6H PRN 4 Days #12 tab 06/25/21 Unknown Rx /Codeine # 3 tab] Fluticasone/Umeclidin/Vilanter 1 puff IH QDAY #1 inh 08/01/21 Unknown Rx [Trelegy Ellipta 100-62.5-25] Allergies Allergy/AdvReac Type Severity Reaction Status Date / Time amoxicillin Allergy Anaphylaxis Verified 04/05/21 06:46 Penicillins Allergy Rash Verified 04/05/21 06:46 seafood Allergy Severe Anaphylaxis Uncoded 03/16/17 01:08 peanuts Allergy Anaphylaxis Uncoded 09/20/19 12:06 ED Review of Systems ROS: Stated complaint: ANXIETY,ASTHMA Other details as noted in HPI Constitutional: denies: fever Eyes: denies: eye discharge ENT: denies: congestion Respiratory: denies: wheezing Cardiovascular: as per HPI Gastrointestinal: denies: abdominal pain, hematemesis, melena, hematochezia Genitourinary: denies: dysuria Musculoskeletal: myalgia Neurological: headache Psychiatric: anxiety Hematological/Lymphatic: denies: easy bleeding ED Past Medical Hx - Past Medical History Hx Hypertension: Yes Hx Heart Attack/AMI: No Hx Congestive Heart Failure: Yes Hx Diabetes: Yes Hx Pulmonary Embolism: No Hx GERD: Yes Hx Liver Disease: No Hx Renal Disease: No Hx Sickle Cell Disease: No Hx Arthritis: Yes Hx Headaches / Migraines: No Hx Seizures: No Hx Kidney Stones: No Hx Psychiatric Treatment: Yes (Anxiety) Hx Asthma: Yes Hx COPD: Yes Hx Tuberculosis: No Hx HIV: No Additional medical history: Intubated x 9. heart murmur. osteoporosis. hearing loss in [place] - Surgical History Hx Coronary Stent: No Hx Open Heart Surgery: No Hx Pacemaker: No Hx Internal Defibrillator: No Hx Cholecystectomy: No Hx Appendectomy: No Hx Breast Surgery: No Additional Surgical History: cataracts, nasal surg, tubal ligation. bilateral foot. Left shoulder surgery, R. knee sx / EYE SURGERY - Social History Smoking Status: Never Smoker - Medications Home Medications: Home Medications Medication Instructions Recorded Confirmed Last Taken Type Montelukast [Singulair] 10 mg PO QHS #30 tablet 01/06/20 01/19/21 01/09/21 Rx Albuterol Mdi (or & Nicu Only) 2 puff IH QID PRN #1 inhalation 03/08/20 01/19/21 12/24/20 Rx [ProAir HFA Inhaler] Metoprolol [Lopressor TAB] 25 mg PO Q8HR #90 tablet 08/19/20 01/19/21 Unknown Rx ALBUTEROL NEB's [Proventil 0.083% 1 vial INHALATION QID PRN 01/19/21 01/19/21 Unknown History NEBS] Bimatoprost 0.01%(Nf) 1 drop OU QHS 01/19/21 01/19/21 Unknown History Furosemide [Lasix TAB] 20 mg PO QDAY 01/19/21 01/19/21 Unknown History Glimepiride [Amaryl] 4 mg PO QDAY 01/19/21 01/19/21 Unknown History Loratadine 10 mg PO QDAY 01/19/21 01/19/21 Unknown History lisinopriL [Zestril TAB] 40 mg PO QDAY 01/19/21 01/19/21 Unknown History Apixaban [Eliquis] 5 mg PO Q12HR 90 Days tablet 01/20/21 Unknown Rx Meloxicam [Mobic] 7.5 mg PO QDAY PRN #12 tablet 02/23/21 Unknown Rx Arformoterol Nebu [Brovana Nebu] 15 mcg IH Q12HRT 90 Days ml 03/05/21 Unknown Rx Fluticasone/Umeclidin/Vilanter 1 each IH DAILY #1 blst.w.dev 03/05/21 Unknown R x [Trelegy Ellipta 200-62.5-25] hydrOXYzine HCL [Atarax] 25 mg PO Q6HR PRN #12 tablet 03/05/21 Unknown Rx Albuterol Mdi (or & Nicu Only) 2 puff IH QID PRN #1 inhalation 03/29/21 Unknown Rx [ProAir HFA Inhaler] Montelukast [Singulair] 10 mg PO QPM #14 tablet 03/29/21 Unknown Rx Budesonide [Pulmicort Respules] 0.5 mg IH Q12HRT 90 Days nebu 05/23/21 Unknown Rx Acetaminophen/Codeine [Tylenol 1 tab PO Q6H PRN 4 Days #12 tab 06/25/21 Unknown Rx /Codeine # 3 tab] Fluticasone/Umeclidin/Vilanter 1 puff IH QDAY #1 inh 08/01/21 Unknown Rx [Trelegy Ellipta 100-62.5-25] ED Physical Exam - General Limitations: No Limitations General appearance: alert, in no apparent distress - Head Head exam: Present: atraumatic, normocephalic - Eye Eye exam: Present: normal appearance, EOMI. Absent: nystagmus - ENT ENT exam: Present: normal exam, normal orophraynx, mucous membranes moist, normal external ear exam - Neck Neck exam: Present: normal inspection, full ROM. Absent: tenderness, meningismus - Respiratory Respiratory exam: Present: normal lung sounds bilaterally. Absent: respiratory distress, wheezes, rales, rhonchi, stridor, decreased breath sounds - Cardiovascular Cardiovascular Exam: Present: regular rate, normal rhythm, normal heart sounds. Absent: bradycardia, tachycardia, irregular rhythm, systolic murmur, diastolic murmur, rubs, gallop - GI/Abdominal GI/Abdominal exam: Present: soft. Absent: distended, tenderness, guarding, rebound, rigid, pulsatile mass - Extremities Exam Extremities exam: Present: normal inspection, full ROM, other (2+ pulses noted in the bilateral upper and lower extremities. There is no palpable cord. negative Homans sign. Muscular compartments are soft. The pelvis is stable.). Absent: pedal edema, calf tenderness - Back Exam Back exam: Present: normal inspection. Absent: tenderness, CVA tenderness (R), CVA tenderness (L), paraspinal tenderness, vertebral tenderness - Neurological Exam Neurological exam: Present: alert, oriented X3, normal gait, other (No facial droop. Tongue midline. Extraocular movements intact bilaterally. Facial sensation intact to light touch in V1, V2, V3 distribution bilaterally. 5 and a 5 strength in 4 extremities. Sensation intact to light touch in 4 extremities.). Absent: motor sensory deficit - Psychiatric Psychiatric exam: Present: normal affect, normal mood - Skin Skin exam: Present: warm, dry, intact, normal color. Absent: rash ED Course Vital Signs 08/01/21 08/01/21 07:34 16:01 Temperature 98 F Pulse Rate 98 H Respiratory 16 Rate Blood Pressure 124/91 [Left] O2 Sat by Pulse 95 Oximetry O2 Sat by Pulse 98 Oximetry [ Digit-Finger] - Reevaluation(s) Reevaluation #1: 08/01/21 11:46 Differential diagnosis, including but not limited to: GERD, gastritis, hiatal hernia, pneumonia, costochondritis, anxiety, conversion disorder, coronary artery disease Assessment and plan: 55-year-old female, who is currently anticoagulated, who is not tachycardic, tachypneic or hypoxic, who denies DVT/PE risk factors, who is low risk by Wells criteria for pulmonary embolism, equal pulses in the upper and lower extremities, no pulsatile abdominal mass, resting comfortably on stretc her, with nonspecific chest discomfort and smothering feeling over her neck. Physical exam is benign and unremarkable. Patient had a negative cardiac nuclear stress test 2019. Cardiovascular risk factor profile reviewed and appreciated, however, this patient has presented to this hospital multiple times for similar complaints. We will treat her symptoms, obtain EKG x2, troponin x2, x-ray the chest, and discussed with covering cardiology for her group. I anticipate that this patient could be safely discharged from the emergency room with close outpatient follow-up with her study assistant. I discussed this with the patient. She is agreeable to the plan of care. Reevaluation #2: 08/01/21 11:47 Patient speaking in full sentences without stridor, neck tenderness, and has an unremarkable head and neck exam 08/01/21 15:59 Patient is observed in this ER for hours without clinical decompensation. EKG unremarkable x2. Chest x-ray unremarkable. Troponin negative x2. Repeat physical examination benign and unchanged. Contacted covering cardiology for the patient's primary study assistant, Dr. Serrano. Discussed the patient's history, physical, laboratory studies imaging studies and clinical impression. We agreed that it would be reasonable to have the patient discharged to closely follow-up with her outpatient study assistant within the next week. Plan to discharge. Return precautions are reviewed. 08/01/21 16:10 requesting refill on trelegy - Pulse Oximetry Interpretation Digit-Finger Initial Pulse Oximetry Readin O2 Sat by Pulse Oximetry: 98 Actions Taken: none ED Medical Decision Making - Lab Data Result diagrams: 08/01/21 12:11 08/01/21 12:11 Vital Signs 08/01/21 07:34 Temperature 98 F Pulse Rate 98 H Respiratory 16 Rate Blood Pressure 124/91 [Left] O2 Sat by Pulse 95 Oximetry - EKG Data -: EKG Interpreted by Fl EKG shows normal: sinus rhythm Rate: normal - EKG Data 08/01/21 11:45 EKG #1 is interpreted at 07: 49 Sinus rhythm, 96 bpm. Normal axis, normal P wave axis, left ventricular hype rtrophy, prolonged first-degree AV block. Abnormal EKG. Not a STEMI. Appears unchanged when compared to prior EKG from June 2021 08/01/21 15:59 EKG #2 is unchanged from prior EKG. Sinus rhythm, rate 65 bpm. Normal axis, normal P wave axis, left ventricular hypertrophy, QTC 4 4 0 ms. Not a STEMI. - Radiology Data Radiology results: pending, report reviewed, image reviewed CHEST 2 VIEWS INDICATION / CLINICAL INFORMATION: chest pressure. COMPARISON: 05/23/2021 FINDINGS: SUPPORT DEVICES: None. HEART / MEDIASTINUM: No significant abnormality. LUNGS / PLEURA: No significant pulmonary or pleural abnormality. No pneumothorax. ADDITIONAL FINDINGS: No significant additional findings. IMPRESSION: 1. No acute findings. No interval change. Signer Name: Jimena Hoffman MD Signed: 08/01/2021 11:11 AM Critical care attestation.: If time is entered above; I have spent that time in minutes in the direct care of this critically ill patient, excluding procedure time. ED Disposition Clinical Impression: Nonspecific chest pain Disposition: HOME / SELF CARE / HOMELESS Is pt being admited?: No Does the pt Need Aspirin: No Condition: Good Instructions: Nonspecific Chest Pain, Adult Additional Instructions: Please continue current outpatient medications. Please follow-up with your study assistant within the next 3 to 5 days. Please call your study assistant office first thing tomorrow morning to arrange outpatient appointment. Please return to the emergency room right away with new pain, worsened pain, migration of pain, projectile vomiting, change in mental status, confusion, inability tolerate liquid feeds, new, worsened or different symptoms not present on the initial emergency room evaluation Prescriptions: Fluticasone/Umeclidin/Vilanter [Trelegy Ellipta 100-62.5-25] 1 puff IH QDAY #1 inh Referrals: SARAH STOKES MD [Staff Physician] - 3-5 Days [facility] [Provider Group] - 3-5 Days
--- NOTE | 2021-08-01 12:15 | XRay Report ---
CHEST 2 VIEWS INDICATION / CLINICAL INFORMATION: chest pressure. COMPARISON: 05/23/2021 FINDINGS: SUPPORT DEVICES: None. HEART / MEDIASTINUM: No significant abnormality. LUNGS / PLEURA: No significant pulmonary or pleural abnormality. No pneumothorax. ADDITIONAL FINDINGS: No significant additional findings. IMPRESSION: 1. No acute findings. No interval change. Signer Name: Jimena Hoffman MD Signed: 08/01/2021 12:11 PM Workstation Name: [id number]
[2021-08-01 12:55] LABS: Mean Corpuscular HGB Conc 33 % (30-34); Mean Corpuscular Volume 87 fl (79-97); Platelet Count 212 K/mm3 (140-440); Red Blood Count 4.15 M/mm3 (3.65-5.03); Red Cell Distribution Width 14.7 % (13.2-15.2)
[2021-08-01 13:19] LABS: BUN/Creatinine Ratio 13; Blood Urea Nitrogen 12 mg/dL (7-17); Calcium 9.7 mg/dL (8.4-10.2); Hemolysis Index 0
[2021-08-01] MEDS ORDERED: ACETAMINOPHEN 325 MG TAB PO STA (16:09)
[2021-08-01 16:31] VITALS: BP 121/84
--- NOTE | 2021-08-02 14:16 | Electrocardiograph Report ---
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
--- NOTE | 2021-08-02 14:18 | Electrocardiograph Report ---
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
== END 2021-08-01 16:30 | disposition home or self-care (01) ==
LOC: ED 07:31
DX: R07.9 Chest pain, unspecified (principal); Z88.0 Allergy status to penicillin; Z91.013 Allergy to seafood; Z91.010 Allergy to peanuts; I10 Essential (primary) hypertension; E11.9 Type 2 diabetes mellitus without complications; J45.909 Unspecified asthma, uncomplicated
CPT/HCPCS: 36415; 71046; 80048; 83735; 84484; 85027; 93005; 99284

== ENCOUNTER 2021-08-01 23:17 | Emergency (ER) | payer MEDICARE ==
[2021-08-02] MEDS ORDERED: ALBUTEROL 2.5 MG/3 ML NEBU IH ONE (01:04)
--- NOTE | 2021-08-02 04:13 | Emergency Department Report ---
ED General Adult HPI - General Chief complaint: Adult Asthma Stated complaint: ASTHMA Time Seen by Provider: 08/02/21 01:40 Source: patient Mode of arrival: Ambulatory Limitations: No Limitations - History of Present Illness Initial comments: 55-year-old F Uzbek female with a known past medical history of COPD, asthma, hypertension, diabetes mellitus type 2, CHF, anxiety who was seen and evaluated emergency department less than 24 hours ago for shortness of breath and chest pain and then discharged home returns emergency department stating that she has did not receive a prescription for her anxiety medication nor did she receive any adjuvant medication for her asthma and she would like to do so. She reports having some sensation of wheezing and thinks that her anxiety or her asthma may be trying to flareup but reports no suicidal homicidal ideation, no paranoia, no visual auditory hallucinations, no hemoptysis no hematemesis hematochezia, no chest pain, no fevers, chills, sweats Radiation: non-radiation Consistency: constant Improves with: none Worsens with: none Associated Symptoms: denies: diaphoresis, fever/chills, loss of appetite, malaise, nausea/vomiting, rash, shortness of breath, syncope, weakness Treatments Prior to Arrival: none - Related Data Home Medications Medication Instructions Recorded Confirmed Last Taken ALBUTEROL NEB's [Proventil 0.083% 1 vial INHALATION QID PRN 01/19/21 01/19/21 Unknown NEBS] Bimatoprost 0.01%(Nf) 1 drop OU QHS 01/19/21 01/19/21 Unknown Furosemide [Lasix TAB] 20 mg PO QDAY 01/19/21 01/19/21 Unknown Glimepiride [Amaryl] 4 mg PO QDAY 01/19/21 01/19/21 Unknown Loratadine 10 mg PO QDAY 01/19/21 01/19/21 Unknown lisinopriL [Zestril TAB] 40 mg PO QDAY 01/19/21 01/19/21 Unknown Previous Rx's Medication Instructions Recorded Last Taken Type Montelukast [Singulair] 10 mg PO QHS #30 tablet 01/06/20 01/09/21 Rx Albuterol Mdi (or & Nicu Only) 2 puff IH QID PRN #1 inhalation 03/08/20 12/24/20 Rx [ProAir HFA Inhaler] Metoprolol [Lopressor TAB] 25 mg PO Q8HR #90 tablet 08/19/20 Unknown Rx Apixaban [Eliquis] 5 mg PO Q12HR 90 Days tablet 01/20/21 Unknown Rx Meloxicam [Mobic] 7.5 mg PO QDAY PRN #12 tablet 02/23/21 Unknown Rx Arformoterol Nebu [Brovana Nebu] 15 mcg IH Q12HRT 90 Days ml 03/05/21 Unknown Rx Fluticasone/Umeclidin/Vilanter 1 each IH DAILY #1 blst.w.dev 03/05/21 Unknown Rx [Trelegy Ellipta 200-62.5-25] hydrOXYzine HCL [Atarax] 25 mg PO Q6HR PRN #12 tablet 03/05/21 Unknown Rx Albuterol Mdi (or & Nicu Only) 2 puff IH QID PRN #1 inhalation 03/29/21 Unknown Rx [ProAir HFA Inhaler] Montelukast [Singulair] 10 mg PO QPM #14 tablet 03/29/21 Unknown Rx Budesonide [Pulmicort Respules] 0.5 mg IH Q12HRT 90 Days nebu 05/23/21 Unknown Rx Acetaminophen/Codeine [Tylenol 1 tab PO Q6H PRN 4 Days #12 tab 06/25/21 Unknown Rx /Codeine # 3 tab] Fluticasone/Umeclidin/Vilanter 1 puff IH QDAY #1 inh 08/01/21 Unknown Rx [Trelegy Ellipta 100-62.5-25] predniSONE [Deltasone] 20 mg PO QDAY #5 tab 08/02/21 Unknown Rx Allergies Allergy/AdvReac Type Severity Reaction Status Date / Time amoxicillin Allergy Anaphylaxis Verified 04/05/21 06:46 Penicillins Allergy Rash Verified 04/05/21 06:46 seafood Allergy Severe Anaphylaxis Uncoded 03/16/17 01:08 peanuts Allergy Anaphylaxis Uncoded 09/20/19 12:06 ED Review of Systems ROS: Stated complaint: ASTHMA Other details as noted in HPI Comment: All other systems reviewed and negative ED Past Medical Hx - Past Medical History Hx Hypertension: Yes Hx Heart Attack/AMI: No Hx Congestive Heart Failure: Yes Hx Diabetes: Yes Hx Pulmonary Embolism: No Hx GERD: Yes Hx Liver Disease: No Hx Renal Disease: No Hx Sickle Cell Disease: No Hx Arthritis: Yes Hx Headaches / Migraines: No Hx Seizures: No Hx Kidney Stones: No Hx Psychiatric Treatment: Yes (Anxiety) Hx Asthma: Yes Hx COPD: Yes Hx Tuberculosis: No Hx HIV: No Additional medical history: Intubated x 9. heart murmur. osteoporosis. hearing loss in [place] - Surgical History Hx Coronary Stent: No Hx Open Heart Surgery: No Hx Pacemaker: No Hx Internal Defibrillator: No Hx Cholecystectomy: No Hx Appendectomy: No Hx Breast Surgery: No Additional Surgical History: cataracts, nasal surg, tubal ligation. bilateral foot. Left shoulder surgery, R. knee sx / EYE SURGERY - Social History Smoking Status: Never Smoker - Medications Home Medications: Home Medications Medication Instructions Recorded Confirmed Last Taken Type Montelukast [Singulair] 10 mg PO QHS #30 tablet 01/06/20 01/19/21 01/09/21 Rx Albuterol Mdi (or & Nicu Only) 2 puff IH QID PRN #1 inhalation 03/08/20 01/19/21 12/24/20 Rx [ProAir HFA Inhaler] Metoprolol [Lopressor TAB] 25 mg PO Q8HR #90 tablet 08/19/20 01/19/21 Unknown Rx ALBUTEROL NEB's [Proventil 0.083% 1 vial INHALATION QID PRN 01/19/21 01/19/21 Unknown History NEBS] Bimatoprost 0.01%(Nf) 1 drop OU QHS 01/19/21 01/19/21 Unknown History Furosemide [Lasix TAB] 20 mg PO QDAY 01/19/21 01/19/21 Unknown History Glimepiride [Amaryl] 4 mg PO QDAY 01/19/21 01/19/21 Unknown History Loratadine 10 mg PO QDAY 01/19/21 01/19/21 Unknown History lisinopriL [Zestril TAB] 40 mg PO QDAY 01/19/21 01/19/21 Unknown History Apixaban [Eliquis] 5 mg PO Q12HR 90 Days tablet 01/20/21 Unknown Rx Meloxicam [Mobic] 7.5 mg PO QDAY PRN #12 tablet 02/23/21 Unknown Rx Arformoterol Nebu [Brovana Nebu] 15 mcg IH Q12HRT 90 Days ml 03/05/21 Unknown Rx Fluticasone/Umeclidin/Vilanter 1 each IH DAILY #1 blst.w.dev 03/05/21 Unknown Rx [Trelegy Ellipta 200-62.5-25] hydrOXYzine HCL [Atarax] 25 mg PO Q6HR PRN #12 tablet 03/05/21 Unknown Rx Albuterol Mdi (or & Nicu Only) 2 puff IH QID PRN #1 inhalation 03/29/21 Unknown Rx [ProAir HFA Inhaler] Montelukast [Singulair] 10 mg PO QPM #14 tablet 03/29/21 Unknown Rx Budesonide [Pulmicort Respules] 0.5 mg IH Q12HRT 90 Days nebu 05/23/21 Unknown Rx Acetaminophen/Codeine [Tylenol 1 tab PO Q6H PRN 4 Days #12 tab 06/25/21 Unknown Rx /Codeine # 3 tab] Fluticasone/Umeclidin/Vilanter 1 puff IH QDAY #1 inh 08/01/21 Unknown Rx [Trelegy Ellipta 100-62.5-25] predniSONE [Deltasone] 20 mg PO QDAY #5 tab 08/02/21 Unknown Rx ED Physical Exam - General Limitations: No Limitations General appearance: alert, in no apparent distress - Head Head exam: Present: atraumatic, normocephalic - Eye Eye exam: Present: normal appearance - ENT ENT exam: Present: mucous membranes moist - Neck Neck exam: Present: normal inspection - Respiratory Respiratory exam: Present: normal lung sounds bilaterally. Absent: respiratory distress, wheezes, rales, rhonchi, decreased breath sounds, prolonged expiratory - Cardiovascular Cardiovascular Exam: Present: regular rate, normal rhythm. Absent: systolic murmur, diastolic murmur, rubs, gallop - GI/Abdominal GI/Abdominal exam: Present: soft, normal bowel sounds - Extremities Exam Extremities exam: Present: normal inspection - Back Exam Back exam: Present: normal inspection - Neurological Exam Neurological exam: Present: alert, oriented X3 - Psychiatric Psychiatric exam: Present: normal affect, normal mood - Skin Skin exam: Present: warm, dry, intact, normal color. Absent: rash ED Course Vital Signs 04/17/22 23:20 Temperature 98.4 F Pulse Rate 94 H Respiratory 18 Rate Blood Pressure 140/83 O2 Sat by Pulse 96 Oximetry ED Medical Decision Making - Medical Decision Making 55-year-old female presents emerged [place] who felt very strongly of having asthma exacerbation flaring up despite findings on physical examination as well as her history mixed with her previously evaluated condition earlier today. Despite the findings she was adamant she received albuterol treatment and anxiolytics for home. Discussed with patient need for follow-up with her primary care provider or a Provider to discuss her angiolytic since he does not appear to be in any emergent psychiatric physician at this present time. Critical care attestation.: If time is entered above; I have spent that time in minutes in the direct care of this critically ill patient, excluding procedure time. ED Disposition Clinical Impression: Asthma Disposition: 01 HOME / SELF CARE / HOMELESS Is pt being admited?: No Does the pt Need Aspirin: No Condition: Stable Instructions: Form - Asthma Action Plan, Adult, Peak Flow Meter, Asthma (ED) Prescriptions: predniSONE [Deltasone] 20 mg PO QDAY #5 tab Referrals: PRIMARY CARE, [Referring] - 3-5 Days
[2021-08-02] MEDS ORDERED: predniSONE 20 MG TAB PO ONE (04:42)
[2021-08-02 04:52] VITALS: BP 122/83
[2021-08-02] MEDS ORDERED: predniSONE 20 MG TAB PO NR (05:00)
== END 2021-08-02 04:50 | disposition home or self-care (01) ==
LOC: ED 23:17
DX: J45.901 Unspecified asthma with (acute) exacerbation (principal)
CPT/HCPCS: 36415; 71046; 80048; 83735; 84484; 85027; 93005; 94640; 99282; 99284

== ENCOUNTER 2021-08-26 06:33 | Emergency (ER) | payer MEDICARE ==
[2021-08-26] MEDS ORDERED: dexAMETHasone 20 MG/5 ML VIAL IV ONE (06:42)
[2021-08-26] MEDS: IPRATROPIUM/ALBUTEROL SULFATE 3 ML AMPUL.NEB IH ONE ×2 (06:57→07:00)
--- NOTE | 2021-08-26 08:16 | Emergency Department Report ---
ED Asthma HPI - General Chief Complaint: Dyspnea/Respdistress Stated Complaint: ASTHMA ATTACK Time Seen by Provider: 08/26/21 07:28 Source: patient, family Mode of arrival: Ambulatory Limitations: No Limitations - History of Present Illness Initial Comments: This is a 56-year-old female nontoxic, well nourished in appearance, no acute signs of distress presents to the ED with c/o of acute on chronic asthma exacerbation. Patient stated she is out of her albuterol inhaler x several days. Patient denies any cough. Patient denies any sick contact. Patient denies any recent travels, long car, recent hospital stays. Patient denies any calf pain or calf tenderness. Patient denies any chest pain, short of breath, fever, chills, nausea, vomiting, hemoptysis, numbness, tingling, headache or stiff neck. MD Complaint: "asthma attack", wheezing -: This morning Severity: mild Associated Symptoms: denies: productive cough, dry cough, fever, chest pain, hemoptysis, leg edema, syncope - Related Data Current Asthma Therapy: none Home Medications Medication Instructions Recorded Confirmed Last Taken ALBUTEROL NEB's [Proventil 0.083% 1 vial INHALATION QID PRN 01/19/21 01/19/21 Unknown NEBS] Bimatoprost 0.01%(Nf) 1 drop OU QHS 01/19/21 01/19/21 Unknown Furosemide [Lasix TAB] 20 mg PO QDAY 01/19/21 01/19/21 Unknown Glimepiride [Amaryl] 4 mg PO QDAY 01/19/21 01/19/21 Unknown Loratadine 10 mg PO QDAY 01/19/21 01/19/21 Unknown lisinopriL [Zestril TAB] 40 mg PO QDAY 01/19/21 01/19/21 Unknown Previous Rx's Medication Instructions Recorded Last Taken Type Montelukast [Singulair] 10 mg PO QHS #30 tablet 01/06/20 01/09/21 Rx Albuterol Mdi (or & Nicu Only) 2 puff IH QID PRN #1 inhalation 03/08/20 12/24/20 Rx [ProAir HFA Inhaler] Metoprolol [Lopressor TAB] 25 mg PO Q8HR #90 tablet 08/19/20 Unknown Rx Apixaban [Eliquis] 5 mg PO Q12HR 90 Days tablet 01/20/21 Unknown Rx Meloxicam [Mobic] 7.5 mg PO QDAY PRN #12 tablet 02/23/21 Unknown Rx Arformoterol Nebu [Brovana Nebu] 15 mcg IH Q12HRT 90 Days ml 03/05/21 Unknown Rx Fluticasone/Umeclidin/Vilanter 1 each IH DAILY #1 blst.w.dev 03/05/21 Unknown Rx [Trelegy Ellipta 200-62.5-25] hydrOXYzine HCL [Atarax] 25 mg PO Q6HR PRN #12 tablet 03/05/21 Unknown Rx Albuterol Mdi (or & Nicu Only) 2 puff IH QID PRN #1 inhalation 03/29/21 Unknown Rx [ProAir HFA Inhaler] Montelukast [Singulair] 10 mg PO QPM #14 tablet 03/29/21 Unknown Rx Budesonide [Pulmicort Respules] 0.5 mg IH Q12HRT 90 Days nebu 05/23/21 Unknown Rx Acetaminophen/Codeine [Tylenol 1 tab PO Q6H PRN 4 Days #12 tab 06/25/21 Unknown Rx /Codeine # 3 tab] Fluticasone/Umeclidin/Vilanter 1 puff IH QDAY #1 inh 08/01/21 Unknown Rx [Trelegy Ellipta 100-62.5-25] predniSONE [Deltasone] 20 mg PO QDAY #5 tab 08/02/21 Unknown Rx ALBUTEROL NEB's [Proventil 0.083% 2.5 mg IH TID PRN 30 Days #1 box 08/26/21 Unknown Rx NEBS] Albuterol Mdi (or & Nicu Only) 2 puff IH QID PRN #8.5 gram 08/26/21 Unknown Rx [ProAir HFA Inhaler] Allergies Allergy/AdvReac Type Severity Reaction Status Date / Time amoxicillin Allergy Anaphylaxis Verified 04/05/21 06:46 Penicillins Allergy Rash Verified 04/05/21 06:46 seafood Allergy Severe Anaphylaxis Uncoded 03/16/17 01:08 peanuts Allergy Anaphylaxis Uncoded 09/20/19 12:06 ED Review of Systems ROS: Stated complaint: ASTHMA ATTACK Other details as noted in HPI Comment: All other systems reviewed and negative Constitutional: denies: chills, fever Eyes: denies: eye pain, eye discharge, vision change ENT: denies: ear pain, throat pain Respiratory: wheezing. denies: cough, orthopnea, shortness of breath, SOB with exertion, SOB at rest, stridor Cardiovascular: denies: chest pain, palpitations Endocrine: no symptoms reported Gastrointestinal: denies: abdominal pain, nausea, diarrhea Genitourinary: denies: urgency, dysuria, discharge Musculoskeletal: denies: back pain, joint swelling, arthralgia Skin: denies: rash, lesions Neurological: denies: headache, weakness, paresthesias Psychiatric: denies: anxiety, depression Hematological/Lymphatic: denies: easy bleeding, easy bruising ED Past Medical Hx - Past Medical History Hx Hypertension: Yes Hx Heart Attack/AMI: No Hx Congestive Heart Failure: Yes Hx Diabetes: Yes Hx Pulmonary Embolism: No Hx GERD: Yes Hx Liver Disease: No Hx Renal Disease: No Hx Sickle Cell Disease: No Hx Arthritis: Yes Hx Headaches / Migraines: No Hx Seizures: No Hx Kidney Stones: No Hx Psychiatric Treatment: Yes (Anxiety) Hx Asthma: Yes Hx COPD: Yes Hx Tuberculosis: No Hx HIV: No Additional medical history: Intubated x 9. heart murmur. osteoporosis. hearing loss in [place] - Surgical History Hx Coronary Stent: No Hx Open Heart Surgery: No Hx Pacemaker: No Hx Internal Defibrillator: No Hx Cholecystectomy: No Hx Appendectomy: No Hx Breast Surgery: No Additional Surgical History: cataracts, nasal surg, tubal ligation. bilateral foot. Left shoulder surgery, R. knee sx / EYE SURGERY - Social History Smoking Status: Never Smoker - Medications Home Medications: Home Medications Medication Instructions Recorded Confirmed Last Taken Type Montelukast [Singulair] 10 mg PO QHS #30 tablet 01/06/20 01/19/21 01/09/21 Rx Albuterol Mdi (or & Nicu Only) 2 puff IH QID PRN #1 inhalation 03/08/20 01/19/21 12/24/20 Rx [ProAir HFA Inhaler] Metoprolol [Lopressor TAB] 25 mg PO Q8HR #90 tablet 08/19/20 01/19/21 Unknown Rx ALBUTEROL NEB's [Proventil 0.083% 1 vial INHALATION QID PRN 01/19/21 01/19/21 Unknown History NEBS] Bimatoprost 0.01%(Nf) 1 drop OU QHS 01/19/21 01/19/21 Unknown History Furosemide [Lasix TAB] 20 mg PO QDAY 01/19/21 01/19/21 Unknown History Glimepiride [Amaryl] 4 mg PO QDAY 01/19/21 01/19/21 Unknown History Loratadine 10 mg PO QDAY 01/19/21 01/19/21 Unknown History lisinopriL [Zestril TAB] 40 mg PO QDAY 01/19/21 01/19/21 Unknown History Apixaban [Eliquis] 5 mg PO Q12HR 90 Days tablet 01/20/21 Unknown Rx Meloxicam [Mobic] 7.5 mg PO QDAY PRN #12 tablet 02/23/21 Unknown Rx Arformoterol Nebu [Brovana Nebu] 15 mcg IH Q12HRT 90 Days ml 03/05/21 Unknown Rx Fluticasone/Umeclidin/Vilanter 1 each IH DAILY #1 blst.w.dev 03/05/21 Unknown Rx [Trelegy Ellipta 200-62.5-25] hydrOXYzine HCL [Atarax] 25 mg PO Q6HR PRN #12 tablet 03/05/21 Unknown Rx Albuterol Mdi (or & Nicu Only) 2 puff IH QID PRN #1 inhalation 03/29/21 Unknown Rx [ProAir HFA Inhaler] Montelukast [Singulair] 10 mg PO QPM #14 tablet 03/29/21 Unknown Rx Budesonide [Pulmicort Respules] 0.5 mg IH Q12HRT 90 Days nebu 05/23/21 Unknown Rx Acetaminophen/Codeine [Tylenol 1 tab PO Q6H PRN 4 Days #12 tab 06/25/21 Unknown Rx /Codeine # 3 tab] Fluticasone/Umeclidin/Vilanter 1 puff IH QDAY #1 inh 08/01/21 Unknown Rx [Trelegy Ellipta 100-62.5-25] predniSONE [Deltasone] 20 mg PO QDAY #5 tab 08/02/21 Unknown Rx ALBUTEROL NEB's [Proventil 0.083% 2.5 mg IH TID PRN 30 Days #1 box 08/26/21 Unknown Rx NEBS] Albuterol Mdi (or & Nicu Only) 2 puff IH QID PRN #8.5 gram 08/26/21 Unknown Rx [ProAir HFA Inhaler] ED Physical Exam - General Limitations: No Limitations General appearance: alert, in no apparent distress - Head Head exam: Present: atraumatic, normocephalic - Eye Eye exam: Present: normal appearance - Neck Neck exam: Present: normal inspection, full ROM. Absent: lymphadenopathy - Respiratory Respiratory exam: Present: normal lung sounds bilaterally. Absent: respiratory distress, wheezes, rales, rhonchi, stridor, chest wall tenderness, accessory muscle use, decreased breath sounds, prolonged expiratory - Cardiovascular Cardiovascular Exam: Present: regular rate, normal rhythm, normal heart sounds. Absent: bradycardia, tachycardia, irregular rhythm, systolic murmur, diastolic murmur, rubs, gallop - Extremities Exam Extremities exam: Present: full ROM - Back Exam Back exam: Present: full ROM - Neurological Exam Neurological exam: Present: alert, oriented X3, normal gait - Psychiatric Psychiatric exam: Present: normal affect, normal mood - Skin Skin exam: Present: warm, dry, intact, normal color. Absent: rash ED Course Vital Signs 08/26/21 08/26/21 06:37 07:25 Temperature 98.2 F Pulse Rate 90 Pulse Rate [ 74 Anterior Bilateral Throughout] Respiratory 24 Rate Respiratory 20 Rate [Anterior Bilateral Throughout] Blood Pressure 167/105 [Right] O2 Sat by Pulse 96 Oximetry - Reevaluation(s) Reevaluation #1: 08/26/21 08:14 Patient is speaking in full sentences with no signs of distress noted. ED Medical Decision Making - Medical Decision Making This is a 56-year-old female that presents with asthma exacerbation. Patient is stable and was examined by me. Patient is notified of the x-ray report with no questions noted by the patient. Patient did receive breathing treatment and steroids in the ED which patient the symptoms has resolved and subsided. Posttreatment and there is no wheezing upon auscultation. Patient is discharged with albuterol refills. Patient was referred to Follow-up with a primary care doctor in 3-5 days or if symptoms worsen and continue return to emergency room as soon as possible. At time of discharge, the patient does not seem toxic or ill in appearance. No acute signs of distress noted. Patient agrees to discharge treatment plan of care. No further questions noted by the patient. This chart is dictated with using [employer] Critical care attestation.: If time is entered above; I have spent that time in minutes in the direct care of this critically ill patient, excluding procedure time. ED Disposition Clinical Impression: Asthma exacerbation Qualifiers: Asthma severity: mild Asthma persistence: intermittent Qualified Code(s): J45.21 - Mild intermittent asthma with (acute) exacerbation Disposition: HOME / SELF CARE / HOMELESS Is pt being admited?: No Does the pt Need Aspirin: No Condition: Stable Instructions: Asthma, Adult Additional Instructions: Follow-up with a primary care doctor in 3-5 days or if symptoms worsen and continue return to emergency room as soon as possible. Prescriptions: Albuterol Mdi (or & Nicu Only) [ProAir HFA Inhaler] 2 puff IH QID PRN #8.5 gram PRN Reason: Shortness Of Breath ALBUTEROL NEB's [Proventil 0.083% NEBS] 2.5 mg IH TID PRN 30 Days #1 box PRN Reason: Wheezing Referrals: RON BAUMANN MD [Primary Care Provider] - 3-5 Days PRIMARY CAREMD [Referring] - 3-5 Days Time of Disposition: 08:16
[2021-08-26 09:20] VITALS: BP 128/71
== END 2021-08-26 09:20 | disposition home or self-care (01) ==
LOC: ED 06:33
DX: J45.901 Unspecified asthma with (acute) exacerbation (principal); Z91.013 Allergy to seafood; Z91.010 Allergy to peanuts; I10 Essential (primary) hypertension; E11.9 Type 2 diabetes mellitus without complications; Z88.0 Allergy status to penicillin
CPT/HCPCS: 94640; 96374; 99283; J1100; 94644

== ENCOUNTER 2021-09-01 02:17 | Emergency (ER) | payer MEDICARE ==
[2021-09-01 02:24] VITALS: BP 164/94
[2021-09-01] MEDS ORDERED: IPRATROPIUM/ALBUTEROL SULFATE 3 ML AMPUL.NEB IH ONE (02:26)
[2021-09-01] MEDS ORDERED: ALBUTEROL 2.5 MG/3 ML NEBU IH ONE (03:05)
[2021-09-01] MEDS ORDERED: IPRATROPIUM 0.02% NEBU 2.5 ML IH ONE (03:06)
== END 2021-09-01 19:00 | disposition left against medical advice (07) ==
LOC: ED 02:17
DX: R06.02 Shortness of breath (principal); Z53.21 Procedure and treatment not carried out due to patient leaving prior to being seen by health care provider
CPT/HCPCS: 94644

== ENCOUNTER 2021-09-19 06:21 | Emergency (ER) | payer MEDICARE ==
[2021-09-19 06:45] VITALS: BP 134/98
--- NOTE | 2021-09-19 08:25 | XRay Report ---
CHEST 2 VIEWS INDICATION / CLINICAL INFORMATION: shortness of breath. COMPARISON: 08/01/2021 FINDINGS: SUPPORT DEVICES: None. HEART / MEDIASTINUM: No significant abnormality. LUNGS / PLEURA: No significant pulmonary or pleural abnormality. No pneumothorax. ADDITIONAL FINDINGS: No significant additional findings. IMPRESSION: 1. No acute findings. Signer Name: Valdo Acharya DO Signed: 09/19/2021 8:20 AM Workstation Name: [id number]
--- NOTE | 2021-09-19 08:42 | Emergency Department Report ---
- General Chief Complaint: Upper Respiratory Infection Stated Complaint: ASTHMA, NASAL CONGESTION Source: patient Mode of arrival: Ambulatory Limitations: No Limitations - History of Present Illness Initial Comments: 56-year-old female presents to the ED complaining of COVID exposure, ,sinus drainage, and body aches x2 days. Patient states that several family member has been tested positive for COVID. She states that she is going to see her PCP in the a.m. patient states taking Tylenol 500 mg prior to arrival with mild relief. Patient was concerned that she might be exposed with COVID and have pne umonia. Patient denies any shortness of breath or chest pain at present time. Patient denies any fever or chills at present time. Patient is alert and oriented x3. No acute distress noted. No ill appearance noted. MD Complaint: nasal congestion, sinus pain Onset/Timin Severity: mild Severity scale (0 -10): 3 Quality: aching Consistency: intermittent Improves With: OTC cold medicine Context: sick contacts Associated Symptoms: denies other symptoms - Related Data Home Medications Medication Instructions Recorded Confirmed Last Taken ALBUTEROL NEB's [Proventil 0.083% 1 vial INHALATION QID PRN 01/19/21 01/19/21 Unknown NEBS] Bimatoprost 0.01%(Nf) 1 drop OU QHS 01/19/21 01/19/21 Unknown Furosemide [Lasix TAB] 20 mg PO QDAY 01/19/21 01/19/21 Unknown Glimepiride [Amaryl] 4 mg PO QDAY 01/19/21 01/19/21 Unknown Loratadine 10 mg PO QDAY 01/19/21 01/19/21 Unknown lisinopriL [Zestril TAB] 40 mg PO QDAY 01/19/21 01/19/21 Unknown Previous Rx's Medication Instructions Recorded Last Taken Type Montelukast [Singulair] 10 mg PO QHS #30 tablet 01/06/20 01/09/21 Rx Albuterol Mdi (or & Nicu Only) 2 puff IH QID PRN #1 inhalation 03/08/20 12/24/20 Rx [ProAir HFA Inhaler] Metoprolol [Lopressor TAB] 25 mg PO Q8HR #90 tablet 08/19/20 Unknown Rx Apixaban [Eliquis] 5 mg PO Q12HR 90 Days tablet 01/20/21 Unknown Rx Meloxicam [Mobic] 7.5 mg PO QDAY PRN #12 tablet 02/23/21 Unknown Rx Arformoterol Nebu [Brovana Nebu] 15 mcg IH Q12HRT 90 Days ml 03/05/21 Unknown Rx Fluticasone/Umeclidin/Vilanter 1 each IH DAILY #1 blst.w.dev 03/05/21 Unknown Rx [Trelegy Ellipta 200-62.5-25] hydrOXYzine HCL [Atarax] 25 mg PO Q6HR PRN #12 tablet 03/05/21 Unknown Rx Albuterol Mdi (or & Nicu Only) 2 puff IH QID PRN #1 inhalation 03/29/21 Unknown Rx [ProAir HFA Inhaler] Montelukast [Singulair] 10 mg PO QPM #14 tablet 03/29/21 Unknown Rx Budesonide [Pulmicort Respules] 0.5 mg IH Q12HRT 90 Days nebu 05/23/21 Unknown Rx Acetaminophen/Codeine [Tylenol 1 tab PO Q6H PRN 4 Days #12 tab 06/25/21 Unknown Rx /Codeine # 3 tab] Fluticasone/Umeclidin/Vilanter 1 puff IH QDAY #1 inh 08/01/21 Unknown Rx [Trelegy Ellipta 100-62.5-25] predniSONE [Deltasone] 20 mg PO QDAY #5 tab 08/02/21 Unknown Rx ALBUTEROL NEB's [Proventil 0.083% 2.5 mg IH TID PRN 30 Days #1 box 08/26/21 Unknown Rx NEBS] Albuterol Mdi (or & Nicu Only) 2 puff IH QID PRN #8.5 gram 08/26/21 Unknown Rx [ProAir HFA Inhaler] Allergies Allergy/AdvReac Type Severity Reaction Status Date / Time amoxicillin Allergy Anaphylaxis Verified 04/05/21 06:46 Penicillins Allergy Rash Verified 04/05/21 06:46 seafood Allergy Severe Anaphylaxis Uncoded 03/16/17 01:08 peanuts Allergy Anaphylaxis Uncoded 09/20/19 12:06 ED Review of Systems ROS: Stated complaint: ASTHMA, NASAL CONGESTION Other details as noted in HPI Constitutional: denies: chills, fever Eyes: denies: eye pain, eye discharge, vision change ENT: denies: ear pain, throat pain Respiratory: denies: cough, shortness of breath, wheezing Cardiovascular: denies: chest pain, palpitations Endocrine: no symptoms reported Gastrointestinal: denies: abdominal pain, nausea, diarrhea Genitourinary: denies: urgency, dysuria, discharge Musculoskeletal: denies: back pain, joint swelling, arthralgia Skin: denies: rash, lesions Neurological: denies: headache, weakness, paresthesias Psychiatric: denies: anxiety, depression Hematological/Lymphatic: denies: easy bleeding, easy bruising ED Past Medical Hx - Past Medical History Hx Hypertension: Yes Hx Heart Attack/AMI: No Hx Congestive Heart Failure: Yes Hx Diabetes: Yes Hx Pulmonary Embolism: No Hx GERD: Yes Hx Liver Disease: No Hx Renal Disease: No Hx Sickle Cell Disease: No Hx Arthritis: Yes Hx Headaches / Migraines: No Hx Seizures: No Hx Kidney Stones: No Hx Psychiatric Treatment: Yes (Anxiety) Hx Asthma: Yes Hx COPD: Yes Hx Tuberculosis: No Hx HIV: No Additional medical history: Intubated x 9. heart murmur. osteoporosis. hearing loss in [place] - Surgical History Hx Coronary Stent: No Hx Open Heart Surgery: No Hx Pacemaker: No Hx Internal Defibrillator: No Hx Cholecystectomy: No Hx Appendectomy: No Hx Breast Surgery: No Additional Surgical History: cataracts, nasal surg, tubal ligation. bilateral foot. Left shoulder surgery, R. knee sx / EYE SURGERY - Social History Smoking Status: Never Smoker - Medications Home Medications: Home Medications Medication Instructions Recorded Confirmed Last Taken Type Montelukast [Singulair] 10 mg PO QHS #30 tablet 01/06/20 01/19/21 01/09/21 Rx Albuterol Mdi (or & Nicu Only) 2 puff IH QID PRN #1 inhalation 03/08/20 01/19/21 12/24/20 Rx [ProAir HFA Inhaler] Metoprolol [Lopressor TAB] 25 mg PO Q8HR #90 tablet 08/19/20 01/19/21 Unknown Rx ALBUTEROL NEB's [Proventil 0.083% 1 vial INHALATION QID PRN 01/19/21 01/19/21 Unknown History NEBS] Bimatoprost 0.01%(Nf) 1 drop OU QHS 01/19/21 01/19/21 Unknown History Furosemide [Lasix TAB] 20 mg PO QDAY 01/19/21 01/19/21 Unknown History Glimepiride [Amaryl] 4 mg PO QDAY 01/19/21 01/19/21 Unknown History Loratadine 10 mg PO QDAY 01/19/21 01/19/21 Unknown History lisinopriL [Zestril TAB] 40 mg PO QDAY 01/19/21 01/19/21 Unknown History Apixaban [Eliquis] 5 mg PO Q12HR 90 Days tablet 01/20/21 Unknown Rx Meloxicam [Mobic] 7.5 mg PO QDAY PRN #12 tablet 02/23/21 Unknown Rx Arformoterol Nebu [Brovana Nebu] 15 mcg IH Q12HRT 90 Days ml 03/05/21 Unknown Rx Fluticasone/Umeclidin/Vilanter 1 each IH DAILY #1 blst.w.dev 03/05/21 Unknown Rx [Trelegy Ellipta 200-62.5-25] hydrOXYzine HCL [Atarax] 25 mg PO Q6HR PRN #12 tablet 03/05/21 Unknown Rx Albuterol Mdi (or & Nicu Only) 2 puff IH QID PRN #1 inhalation 03/29/21 Unknown Rx [ProAir HFA Inhaler] Montelukast [Singulair] 10 mg PO QPM #14 tablet 03/29/21 Unknown Rx Budesonide [Pulmicort Respules] 0.5 mg IH Q12HRT 90 Days nebu 05/23/21 Unknown Rx Acetaminophen/Codeine [Tylenol 1 tab PO Q6H PRN 4 Days #12 tab 06/25/21 Unknown Rx /Codeine # 3 tab] Fluticasone/Umeclidin/Vilanter 1 puff IH QDAY #1 inh 08/01/21 Unknown Rx [Trelegy Ellipta 100-62.5-25] predniSONE [Deltasone] 20 mg PO QDAY #5 tab 08/02/21 Unknown Rx ALBUTEROL NEB's [Proventil 0.083% 2.5 mg IH TID PRN 30 Days #1 box 08/26/21 Unknown Rx NEBS] Albuterol Mdi (or & Nicu Only) 2 puff IH QID PRN #8.5 gram 08/26/21 Unknown Rx [ProAir HFA Inhaler] ED Physical Exam - General Limitations: No Limitations General appearance: alert, in no apparent distress - Head Head exam: Present: atraumatic, normocephalic - Eye Eye exam: Present: normal appearance - ENT ENT exam: Present: mucous membranes moist - Neck Neck exam: Present: normal inspection - Respiratory Respiratory exam: Present: normal lung sounds bilaterally. Absent: respiratory distress - Cardiovascular Cardiovascular Exam: Present: regular rate, normal rhythm. Absent: systolic murmur, diastolic murmur, rubs, gallop - GI/Abdominal GI/Abdominal exam: Present: soft, normal bowel sounds - Extremities Exam Extremities exam: Present: normal inspection - Back Exam Back exam: Present: normal inspection - Neurological Exam Neurological exam: Present: alert, oriented X3 - Psychiatric Psychiatric exam: Present: normal affect, normal mood - Skin Skin exam: Present: warm, dry, intact, normal color. Absent: rash ED Course Vital Signs 09/19/21 09/19/21 06:39 09:24 Temperature 98.7 F Pulse Rate 89 90 Respiratory 18 18 Rate Blood Pressure 134/98 Blood Pressure 134/98 [Right] O2 Sat by Pulse 98 98 Oximetry ED Medical Decision Making - Radiology Data [facility] [address] [place] [address] XRay Report Signed Patient: EDIE RENDON MR#: [id number] : 1965 Acct:[id number] Age/Sex: 56 / F ADM Date: 09/19/21 Loc: ED Attending Dr: Ordering Physician: ALTAF WARD Date of Service: 09/19/21 Procedure(s): XR chest routine 2V Accession Number(s): [id number] cc: ALTAF WARD Fluoro Time In Minutes: CHEST 2 VIEWS INDICATION / CLINICAL INFORMATION: shortness of breath. COMPARISON: 08/01/2021 FINDINGS: SUPPORT DEVICES: None. HEART / MEDIASTINUM: No significant abnormality. LUNGS / PLEURA: No significant pulmonary or pleural abnormality. No pneumothorax. ADDITIONAL FINDINGS: No significant additional findings. IMPRESSION: 1. No acute findings. Signer Name: Valdo Rivera DO Signed: 09/19/2021 8:20 AM Workstation Name: [id number] Transcribed By: NELLIE Dictated By: VALDO RIVERA DO Electronically Authenticated By: VALDO RIVERA DO Signed Date/Time: 09/19/21819 DD/ 9 TD/TT: - Medical Decision Making 56-year-old female presents to the ED complaining of COVID exposure, ,sinus drainage, and body aches x2 days. Patient states that several family member has been tested positive for COVID. She states that she is going to see her PCP in the a.m. patient states taking Tylenol 500 mg prior to arrival with mild relief. Patient was concerned that she might be exposed with COVID and have pneumonia. Patient denies any shortness of breath or chest pain at present time. Patient denies any fever or chills at present time. Patient is alert and oriented x3. No acute distress noted. No ill appearance noted. Physical examination is unremarkable. chest X-ray two-view shows no abnormality. Rechecked the patient is resting quietly quietly and comfortable and feeling better. I discussed the results of diagnostic study, my clinical impression and the plan for further treatment with the patient. Patient agrees with plan and discharge at this present time. All question addressed. I have given the patient instruction regarding a diagnosis ,expectation ,follow- up and return precaution. I explained to the patient that emergent condition may arise and to return to the ED for new worsen and any new persisting condition. I have explained the importance of following up with the primary care physician or referral physician listed below has instructed. The patient verbalized understanding of discharge instruction. Critical care attestation.: If time is entered above; I have spent that time in minutes in the direct care of this critically ill patient, excluding procedure time. ED Disposition Clinical Impression: Close exposure to COVID-19 virus Acute sinusitis Qualifiers: Sinusitis location: frontal Recurrence: recurrent Qualified Code(s): J01.11 - Acute recurrent frontal sinusitis Disposition: HOME / SELF CARE / HOMELESS Is pt being admited?: No Does the pt Need Aspirin: No Condition: Stable Instructions: COVID-19 Frequently Asked Questions, Sinusitis, Adult, [id number] Additional Instructions: Continue to take Tylenol [id number] Continue to use Flonase otc Keep appointment with primary care doctor for tomorrow Return to the ED for any worsening symptom Your symptoms appear most consistent with a nonspecific viral syndrome. However, given this current pandemic, COVID-19 is in the differential of possibilities. Despite your previous negative COVID-19 test, I do recommend repeat outpatient Covid 19 testing. In the meantime, isolate/quarantine yourself and stay away from anyone who is elderly, immunocompromised or chronically ill. You can use ibuprofen every 6-8 hours and Tylenol every 4-8 hours, using the dosing on the back of the bottle, as needed for any fever or body aches. Return to the emergency department with any worsening of your symptoms, development of chest pain or shortness of breath, or with any acute distress. Referrals: PRIMARY CAREMD [Primary Care Provider] - 3-5 Days RON BAUMANN MD [Staff Physician] - 3-5 Days Forms: Work/School Release Form(ED) Time of Disposition: 09:00
[2021-09-19] MEDS ORDERED: dexAMETHasone 20 MG/5 ML VIAL IM ONE (08:55)
--- NOTE | 2021-09-19 14:06 | Electrocardiograph Report ---
[facility] Test Date: 2021-09-19 Test Time: 06:25:29 Pat Name: EDIE RENDON Department: Room: Gender: F [employer] Documents Closer: VIOLA : 1965 Requested By: ED DOC Order Number: [id number] Reading MD: Kamaljit Mccullough Measurements Intervals [place] Rate: 79 P: 63 HI: 184 QRS: 26 QRSD: 87 T: 55 QT: 401 QTc: 460 Interpretive Statements Sinus rhythm Probable left atrial enlargement Compared to ECG 08/01/2021 14:40:45 No significant changes Electronically Signed On 09-19-2021 14:06:26 EDT by Kamaljit Mccullough
== END 2021-09-19 09:23 | disposition home or self-care (01) ==
LOC: ED 06:21
DX: U07.1 COVID-19 (principal); J01.90 Acute sinusitis, unspecified; I11.0 Hypertensive heart disease with heart failure; I50.9 Heart failure, unspecified; E11.9 Type 2 diabetes mellitus without complications; M19.90 Unspecified osteoarthritis, unspecified site; R01.1 Cardiac murmur, unspecified; K21.9 Gastro-esophageal reflux disease without esophagitis; J44.9 Chronic obstructive pulmonary disease, unspecified; K44.9 Diaphragmatic hernia without obstruction or gangrene; Z98.890 Other specified postprocedural states; Z88.0 Allergy status to penicillin; Z91.010 Allergy to peanuts; Z91.013 Allergy to seafood
CPT/HCPCS: 71046; 93005; 96372; 99283; J1100

== ENCOUNTER 2021-10-14 05:12 | Emergency (ER) | payer MEDICARE ==
[2021-10-14] MEDS ORDERED: methylPREDNISolone Sod Succinate 125 MG/2 ML INJ IV ONE (05:25)
[2021-10-14] MEDS ORDERED: MAGNESIUM SULFATE 2 GM/50 ML BAG IV ONE (05:25)
[2021-10-14] MEDS ORDERED: IPRATROPIUM 0.02% NEBU 2.5 ML IH ONE (05:25)
[2021-10-14] MEDS ORDERED: ALBUTEROL 2.5 MG/3 ML NEBU IH ONE (05:25)
--- NOTE | 2021-10-14 05:36 | Emergency Department Report ---
ED General Adult HPI - General Chief complaint: Adult Asthma Stated complaint: ASTHMA Source: patient Mode of arrival: Ambulatory Limitations: No Limitations - History of Present Illness Initial comments: 56-year-old [place] female past medical history of hypertension, asthma anxiety presents emerged department complaining of having Anxiety flareup which triggered her asthma and. Once the asthma had developed she was unable to utilize a home medication to mitigate symptoms and presents emergency department seeking treatment. Reports no hemoptysis symptoms hematochezia, no nausea, no vomiting -: Gradual Radiation: non-radiation Quality: dull Consistency: constant Improves with: none Associated Symptoms: denies other symptoms. denies: diaphoresis, loss of appetite, malaise, nausea/vomiting Treatments Prior to Arrival: none - Related Data Home Medications Medication Instructions Recorded Confirmed Last Taken ALBUTEROL NEB's [Proventil 0.083% 1 vial INHALATION QID PRN 01/19/21 01/19/21 Unknown NEBS] Bimatoprost 0.01%(Nf) 1 drop OU QHS 01/19/21 01/19/21 Unknown Furosemide [Lasix TAB] 20 mg PO QDAY 01/19/21 01/19/21 Unknown Glimepiride [Amaryl] 4 mg PO QDAY 01/19/21 01/19/21 Unknown Loratadine 10 mg PO QDAY 01/19/21 01/19/21 Unknown lisinopriL [Zestril TAB] 40 mg PO QDAY 01/19/21 01/19/21 Unknown Previous Rx's Medication Instructions Recorded Last Taken Type Montelukast [Singulair] 10 mg PO QHS #30 tablet 01/06/20 01/09/21 Rx Albuterol Mdi (or & Nicu Only) 2 puff IH QID PRN #1 inhalation 03/08/20 12/24/20 Rx [ProAir HFA Inhaler] Metoprolol [Lopressor TAB] 25 mg PO Q8HR #90 tablet 08/19/20 Unknown Rx Apixaban [Eliquis] 5 mg PO Q12HR 90 Days tablet 01/20/21 Unknown Rx Meloxicam [Mobic] 7.5 mg PO QDAY PRN #12 tablet 02/23/21 Unknown Rx Arformoterol Nebu [Brovana Nebu] 15 mcg IH Q12HRT 90 Days ml 03/05/21 Unknown Rx Fluticasone/Umeclidin/Vilanter 1 each IH DAILY #1 blst.w.dev 03/05/21 Unknown Rx [Trelegy Ellipta 200-62.5-25] hydrOXYzine HCL [Atarax] 25 mg PO Q6HR PRN #12 tablet 03/05/21 Unknown Rx Albuterol Mdi (or & Nicu Only) 2 puff IH QID PRN #1 inhalation 03/29/21 Unknown Rx [ProAir HFA Inhaler] Montelukast [Singulair] 10 mg PO QPM #14 tablet 03/29/21 Unknown Rx Budesonide [Pulmicort Respules] 0.5 mg IH Q12HRT 90 Days nebu 05/23/21 Unknown Rx Acetaminophen/Codeine [Tylenol 1 tab PO Q6H PRN 4 Days #12 tab 06/25/21 Unknown Rx /Codeine # 3 tab] Fluticasone/Umeclidin/Vilanter 1 puff IH QDAY #1 inh 08/01/21 Unknown Rx [Trelegy Ellipta 100-62.5-25] predniSONE [Deltasone] 20 mg PO QDAY #5 tab 08/02/21 Unknown Rx ALBUTEROL NEB's [Proventil 0.083% 2.5 mg IH TID PRN 30 Days #1 box 08/26/21 Unknown Rx NEBS] Albuterol Mdi (or & Nicu Only) 2 puff IH QID PRN #8.5 gram 08/26/21 Unknown Rx [ProAir HFA Inhaler] ALBUTEROL NEB's [Proventil 0.083% 2.5 mg IH TID PRN #30 neb 10/14/21 Unknown Rx NEBS] Montelukast [Singulair] 10 mg PO QPM #14 tablet 10/14/21 Unknown Rx predniSONE [Deltasone] 20 mg PO QDAY #5 tab 10/14/21 Unknown Rx Allergies Allergy/AdvReac Type Severity Reaction Status Date / Time amoxicillin Allergy Anaphylaxis Verified 04/05/21 06:46 Penicillins Allergy Rash Verified 04/05/21 06:46 seafood Allergy Severe Anaphylaxis Uncoded 03/16/17 01:08 peanuts Allergy Anaphylaxis Uncoded 09/20/19 12:06 ED Review of Systems ROS: Stated complaint: ASTHMA Other details as noted in HPI Comment: All other systems reviewed and negative ED Past Medical Hx - Past Medical History Previous Medical History?: Yes Hx Hypertension: Yes Hx Heart Attack/AMI: No Hx Congestive Heart Failure: Yes Hx Diabetes: Yes Hx Pulmonary Embolism: No Hx GERD: Yes Hx Liver Disease: No Hx Renal Disease: No Hx Sickle Cell Disease: No Hx Arthritis: Yes Hx Headaches / Migraines: No Hx Seizures: No Hx Kidney Stones: No Hx Psychiatric Treatment: Yes (Anxiety) Hx Asthma: Yes Hx COPD: Yes Hx Tuberculosis: No Hx HIV: No Additional medical history: Intubated x 9. heart murmur. osteoporosis. hearing loss in [place] - Surgical History Hx Coronary Stent: No Hx Open Heart Surgery: No Hx Pacemaker: No Hx Internal Defibrillator: No Hx Cholecystectomy: No Hx Appendectomy: No Hx Breast Surgery: No Additional Surgical History: cataracts, nasal surg, tubal ligation. bilateral foot. Left shoulder surgery, R. knee sx / EYE SURGERY - Social History Smoking Status: Never Smoker - Medications Home Medications: Home Medications Medication Instructions Recorded Confirmed Last Taken Type Montelukast [Singulair] 10 mg PO QHS #30 tablet 01/06/20 01/19/21 01/09/21 Rx Albuterol Mdi (or & Nicu Only) 2 puff IH QID PRN #1 inhalation 03/08/20 01/19/21 12/24/20 Rx [ProAir HFA Inhaler] Metoprolol [Lopressor TAB] 25 mg PO Q8HR #90 tablet 08/19/20 01/19/21 Unknown Rx ALBUTEROL NEB's [Proventil 0.083% 1 vial INHALATION QID PRN 01/19/21 01/19/21 Unknown History NEBS] Bimatoprost 0.01%(Nf) 1 drop OU QHS 01/19/21 01/19/21 Unknown History Furosemide [Lasix TAB] 20 mg PO QDAY 01/19/21 01/19/21 Unknown History Glimepiride [Amaryl] 4 mg PO QDAY 01/19/21 01/19/21 Unknown History Loratadine 10 mg PO QDAY 01/19/21 01/19/21 Unknown History lisinopriL [Zestril TAB] 40 mg PO QDAY 01/19/21 01/19/21 Unknown History Apixaban [Eliquis] 5 mg PO Q12HR 90 Days tablet 01/20/21 Unknown Rx Meloxicam [Mobic] 7.5 mg PO QDAY PRN #12 tablet 02/23/21 Unknown Rx Arformoterol Nebu [Brovana Nebu] 15 mcg IH Q12HRT 90 Days ml 03/05/21 Unknown Rx Fluticasone/Umeclidin/Vilanter 1 each IH DAILY #1 blst.w.dev 03/05/21 Unknown Rx [Trelegy Ellipta 200-62.5-25] hydrOXYzine HCL [Atarax] 25 mg PO Q6HR PRN #12 tablet 03/05/21 Unknown Rx Albuterol Mdi (or & Nicu Only) 2 puff IH QID PRN #1 inhalation 03/29/21 Unknown Rx [ProAir HFA Inhaler] Montelukast [Singulair] 10 mg PO QPM #14 tablet 03/29/21 Unknown Rx Budesonide [Pulmicort Respules] 0.5 mg IH Q12HRT 90 Days nebu 05/23/21 Unknown Rx Acetaminophen/Codeine [Tylenol 1 tab PO Q6H PRN 4 Days #12 tab 06/25/21 Unknown Rx /Codeine # 3 tab] Fluticasone/Umeclidin/Vilanter 1 puff IH QDAY #1 inh 08/01/21 Unknown Rx [Trelegy Ellipta 100-62.5-25] predniSONE [Deltasone] 20 mg PO QDAY #5 tab 08/02/21 Unknown Rx ALBUTEROL NEB's [Proventil 0.083% 2.5 mg IH TID PRN 30 Days #1 box 08/26/21 Unknown Rx NEBS] Albuterol Mdi (or & Nicu Only) 2 puff IH QID PRN #8.5 gram 08/26/21 Unknown Rx [ProAir HFA Inhaler] ALBUTEROL NEB's [Proventil 0.083% 2.5 mg IH TID PRN #30 neb 10/14/21 Unknown Rx NEBS] Montelukast [Singulair] 10 mg PO QPM #14 tablet 10/14/21 Unknown Rx predniSONE [Deltasone] 20 mg PO QDAY #5 tab 10/14/21 Unknown Rx ED Physical Exam - General Limitations: No Limitations General appearance: alert, in distress (Presents in mild-moderate postop distress speaking in near full sentences but taken occasional pauses to breathe) - Head Head exam: Present: atraumatic, normocephalic - Eye Eye exam: Present: normal appearance, PERRL, EOMI - ENT ENT exam: Present: normal exam, normal orophraynx, mucous membranes moist, normal external ear exam. Absent: TM's normal bilaterally - Neck Neck exam: Present: normal inspection - Respiratory Respiratory exam: Present: normal lung sounds bilaterally, wheezes, rales, rhonchi. Absent: respiratory distress, chest wall tenderness - Cardiovascular Cardiovascular Exam: Present: regular rate, normal rhythm. Absent: bradycardia, tachycardia, normal heart sounds, systolic murmur, diastolic murmur, rubs, gallop - GI/Abdominal GI/Abdominal exam: Present: soft, normal bowel sounds - Extremities Exam Extremities exam: Present: normal inspection - Back Exam Back exam: Present: normal inspection. Absent: CVA tenderness (R), CVA tenderness (L) - Neurological Exam Neurological exam: Present: alert, oriented X3, CN II-XII intact, normal gait - Psychiatric Psychiatric exam: Present: normal affect, normal mood - Skin Skin exam: Present: warm, dry, intact, normal color. Absent: rash ED Course Vital Signs 10/14/21 05:12 Temperature 98.3 F Pulse Rate 99 H Respiratory 24 Rate Blood Pressure 160/89 [Right] O2 Sat by Pulse 94 Oximetry ED Medical Decision Making - Medical Decision Making No altered mental status, saddle respirations, belly breathing or other signs of impending ventilatory failure. No intubations or recent admissions to the hospital for asthma. Unlikely pneumonia, CHF, COPD, GERD Workup Review include a chest x-ray which was normal she also received steroids and albuterol Therapies: Solu-Medrol 125. Albuterol nebulizer Reassessment: Patient improved with albuterol and ipratropium in less than 3 hours. Disposition: Discharge home with return precautions. Advised to follow up with primary care physician within next 24-48 hours. Aside from this acute exacerbation patient has been well controlled on baseline home regimen. Rx short steroid course, albuterol, Singulair, Flovent Critical care attestation.: If time is entered above; I have spent that time in minutes in the direct care of this critically ill patient, excluding procedure time. ED Disposition Condition: Stable
--- NOTE | 2021-10-14 06:50 | XRay Report ---
CHEST 2 VIEWS INDICATION / CLINICAL INFORMATION: Asthma. COMPARISON: 09/15/2021 FINDINGS: SUPPORT DEVICES: None. HEART / MEDIASTINUM: No significant abnormality. LUNGS / PLEURA: No significant pulmonary or pleural abnormality. No pneumothorax. ADDITIONAL FINDINGS: No significant additional findings. IMPRESSION: 1. No acute findings. Signer Name: Valdo Acharya DO Signed: 10/14/2021 6:46 AM Workstation Name: [id number]
[2021-10-14 07:55] VITALS: BP 143/85
== END 2021-10-14 08:10 | disposition home or self-care (01) ==
LOC: ED 05:12
DX: J45.909 Unspecified asthma, uncomplicated (principal)
CPT/HCPCS: 71046; 94640; 96365; 96375; 99283; J2930; J3475

== ENCOUNTER 2021-11-28 07:04 | Emergency (ER) | payer MEDICARE ==
--- NOTE | 2021-11-28 10:17 | XRay Report ---
CHEST 2 VIEWS INDICATION / CLINICAL INFORMATION: SOB. COMPARISON: 10/14/2021 FINDINGS: SUPPORT DEVICES: None. HEART / MEDIASTINUM: No significant abnormality. LUNGS / PLEURA: No significant pulmonary or pleural abnormality. No pneumothorax. ADDITIONAL FINDINGS: No significant additional findings. IMPRESSION: 1. No acute findings. Signer Name: Valdo Acharya DO Signed: 11/28/2021 10:13 AM Workstation Name: [id number]
[2021-11-28] MEDS ORDERED: IPRATROPIUM/ALBUTEROL SULFATE 3 ML AMPUL.NEB IH ONE ×2 (10:18→10:26)
[2021-11-28] MEDS ORDERED: IPRATROPIUM 0.02% NEBU 2.5 ML IH ONE (12:44)
[2021-11-28] MEDS ORDERED: ALBUTEROL 2.5 MG/3 ML NEBU IH ONE (12:44)
[2021-11-28] MEDS ORDERED: methylPREDNISolone Sod Succinate 125 MG/2 ML INJ IM ONE (12:45)
--- NOTE | 2021-11-28 12:50 | Emergency Department Report ---
HPI - General Chief Complaint: Adult Asthma Time Seen by Provider: 11/28/21 12:38 - HPI HPI: Room 25 The patient is a 56-year-old female present with a chief complaint of "I think my chest got tight from asthma." Patient states she has been wheezing for the past 4 days. The patient states she was using her nebs but they did not help. Patient denies history of fever or cough ED Past Medical Hx - Past Medical History Previous Medical History?: Yes Hx Hypertension: Yes Hx Congestive Heart Failure: Yes Hx Diabetes: Yes Hx GERD: Yes Hx Arthritis: Yes Hx Psychiatric Treatment: Yes (Anxiety) Hx Asthma: Yes Hx COPD: Yes Additional medical history: Intubated x 9. heart murmur. osteoporosis. hearing loss in [place] - Surgical History Past Surgical History?: Yes Additional Surgical History: cataracts, nasal surg, tubal ligation. bilateral foot. Left shoulder surgery, R. knee sx / EYE SURGERY - Family History Family history: no significant - Social History Smoking Status: Never Smoker Substance Use Type: None - Medications Home Medications: Home Medications Medication Instructions Recorded Confirmed Last Taken Type Montelukast [Singulair] 10 mg PO QHS #30 tablet 01/06/20 01/19/21 01/09/21 Rx Albuterol Mdi (or & Nicu Only) 2 puff IH QID PRN #1 inhalation 03/08/20 01/19/21 12/24/20 Rx [ProAir HFA Inhaler] Metoprolol [Lopressor TAB] 25 mg PO Q8HR #90 tablet 08/19/20 01/19/21 Unknown Rx ALBUTEROL NEB's [Proventil 0.083% 1 vial INHALATION QID PRN 01/19/21 01/19/21 Unknown History NEBS] Bimatoprost 0.01%(Nf) 1 drop OU QHS 01/19/21 01/19/21 Unknown History Furosemide [Lasix TAB] 20 mg PO QDAY 01/19/21 01/19/21 Unknown History Glimepiride [Amaryl] 4 mg PO QDAY 01/19/21 01/19/21 Unknown History Loratadine 10 mg PO QDAY 01/19/21 01/19/21 Unknown History lisinopriL [Zestril TAB] 40 mg PO QDAY 01/19/21 01/19/21 Unknown History Apixaban [Eliquis] 5 mg PO Q12HR 90 Days tablet 01/20/21 Unknown Rx Meloxicam [Mobic] 7.5 mg PO QDAY PRN #12 tablet 02/23/21 Unknown Rx Arformoterol Nebu [Brovana Nebu] 15 mcg IH Q12HRT 90 Days ml 03/05/21 Unknown Rx Fluticasone/Umeclidin/Vilanter 1 each IH DAILY #1 blst.w.dev 03/05/21 Unknown Rx [Trelegy Ellipta 200-62.5-25] hydrOXYzine HCL [Atarax] 25 mg PO Q6HR PRN #12 tablet 03/05/21 Unknown Rx Albuterol Mdi (or & Nicu Only) 2 puff IH QID PRN #1 inhalation 03/29/21 Unknown Rx [ProAir HFA Inhaler] Montelukast [Singulair] 10 mg PO QPM #14 tablet 03/29/21 Unknown Rx Budesonide [Pulmicort Respules] 0.5 mg IH Q12HRT 90 Days nebu 05/23/21 Unknown Rx Acetaminophen/Codeine [Tylenol 1 tab PO Q6H PRN 4 Days #12 tab 06/25/21 Unknown Rx /Codeine # 3 tab] Fluticasone/Umeclidin/Vilanter 1 puff IH QDAY #1 inh 08/01/21 Unknown Rx [Trelegy Ellipta 100-62.5-25] predniSONE [Deltasone] 20 mg PO QDAY #5 tab 08/02/21 Unknown Rx ALBUTEROL NEB's [Proventil 0.083% 2.5 mg IH TID PRN 30 Days #1 box 08/26/21 Unknown Rx NEBS] Albuterol Mdi (or & Nicu Only) 2 puff IH QID PRN #8.5 gram 08/26/21 Unknown Rx [ProAir HFA Inhaler] ALBUTEROL NEB's [Proventil 0.083% 2.5 mg IH TID PRN #30 neb 10/14/21 Unknown Rx NEBS] Montelukast [Singulair] 10 mg PO QPM #14 tablet 10/14/21 Unknown Rx predniSONE [Deltasone] 20 mg PO QDAY #5 tab 10/14/21 Unknown Rx Albuterol Mdi (or & Nicu Only) 2 puff IH QID PRN #8.5 gram 11/28/21 Unknown Rx [ProAir HFA Inhaler] Albuterol Sulfate [Albuterol 0.63% 0.63 mg IH TID PRN #75 ml 11/28/21 Unknown Rx NEBS] Prednisone [predniSONE 10 mg 10 mg PO .TAPER #1 11/28/21 Unknown Rx (6-Day Pack, 21 Tabs)] ED Review of Systems ROS: Stated complaint: SOB/ASTHMA/CHF Other details as noted in HPI Constitutional: no symptoms reported Eyes: denies: eye pain ENT: denies: throat pain Respiratory: shortness of breath, wheezing. denies: cough Cardiovascular: denies: chest pain Endocrine: no symptoms reported Gastrointestinal: denies: abdominal pain Genitourinary: denies: dysuria Musculoskeletal: denies: back pain Neurological: denies: headache Physical Exam - Physical Exam Vital Signs: Vital Signs 11/28/21 11/28/21 07:31 10:27 Temperature 98.4 F Pulse Rate 76 Pulse Rate [ 85 Anterior Bilateral Throughout] Respiratory 22 Rate Respiratory 18 Rate [Anterior Bilateral Throughout] Blood Pressure 130/87 [Right] O2 Sat by Pulse 96 Oximetry Physical Exam: GENERAL: The patient is well-developed well-nourished female lying on stretcher not appearing to be in acute distress. [] HEENT: Normocephalic. Atraumatic. Extraocular motions are intact. Patient has moist mucous membranes. NECK: Supple. Trachea midline CHEST/LUNGS: Diminished diffusely. There is no respiratory distress noted. HEART/CARDIOVASCULAR: Regular. There is no tachycardia. There is no gallop rub or murmur. ABDOMEN: Abdomen is soft, nontender. Patient has normal bowel sounds. There is no abdominal distention. SKIN: There is no rash. There is no edema. There is no diaphoresis. NEURO: The patient is awake, alert, and oriented. The patient is cooperative. The patient has no focal neurologic deficits. The patient has normal speech. GCS 15 MUSCULOSKELETAL: There is no evidence of acute injury. ED Course Vital Signs 11/28/21 11/28/21 07:31 10:27 Temperature 98.4 F Pulse Rate 76 Pulse Rate [ 85 Anterior Bilateral Throughout] Respiratory 22 Rate Respiratory 18 Rate [Anterior Bilateral Throughout] Blood Pressure 130/87 [Right] O2 Sat by Pulse 96 Oximetry - Reevaluation(s) Reevaluation #1: 11/28/21 13:58 Patient feels improved ED Medical Decision Making - Radiology Data Radiology results: report reviewed (Chest x-ray), image reviewed (Chest x-ray) interpreted by me: Chest x-ray-no definite focal infiltrates, no pneumothorax [facility] [address] [place] [address] XRay Report Signed Patient: EDIE RENDON MR#: [id number] : 1965 Acct:[id number] Age/Sex: 56 / F ADM Date: 11/28/21 Loc: ED Attending Dr: Ordering Physician: ISABEL WOOD Date of Service: 11/28/21 Procedure(s): XR chest routine 2V Accession Number(s): [id number] cc: ISABEL WOOD Fluoro Time In Minutes: CHEST 2 VIEWS INDICATION / CLINICAL INFORMATION: SOB. COMPARISON: 10/14/2021 FINDINGS: SUPPORT DEVICES: None. HEART / MEDIASTINUM: No significant abnormality. LUNGS / PLEURA: No significant pulmonary or pleural abnormality. No pneumothorax. ADDITIONAL FINDINGS: No significant additional findings. IMPRESSION: 1. No acute findings. Signer Name: Valdo Rivera DO Signed: 11/28/2021 10:13 AM Workstation Name: [id number] Transcribed By: NS Dictated By: VALDO RIVERA DO Electronically Authenticated By: VALDO RIVERA DO Signed Date/Time: 11/28/21 1013 DD/ 1009 TD/TT: - Differential Diagnosis Acute asthma exacerbation Critical care attestation.: If time is entered above; I have spent that time in minutes in the direct care of this critically ill patient, excluding procedure time. ED Disposition Clinical Impression: Acute asthma exacerbation Disposition: 01 HOME / SELF CARE / HOMELESS Is pt being admited?: No Does the pt Need Aspirin: No Condition: Stable Instructions: Asthma, Adult Additional Instructions: Return to the emergency department should you develop worsening symptoms, inability to tolerate food or liquids, high fever or any other concerns Prescriptions: Albuterol Sulfate [Albuterol 0.63% NEBS] 0.63 mg IH TID PRN #75 ml PRN Reason: Wheezing Prednisone [predniSONE 10 mg (6-Day Pack, 21 Tabs)] 10 mg PO .TAPER #1 Albuterol Mdi (or & Nicu Only) [ProAir HFA Inhaler] 2 puff IH QID PRN #8.5 gram PRN Reason: Shortness Of Breath Referrals: RON BAUMANN MD [Staff Physician] - 3-5 Days Time of Disposition: 14:00
[2021-11-28 14:36] VITALS: BP 118/60
== END 2021-11-29 14:40 | disposition home or self-care (01) ==
LOC: ED 07:04
DX: J45.901 Unspecified asthma with (acute) exacerbation (principal); I11.0 Hypertensive heart disease with heart failure; I50.9 Heart failure, unspecified; E11.9 Type 2 diabetes mellitus without complications; K21.9 Gastro-esophageal reflux disease without esophagitis; M19.90 Unspecified osteoarthritis, unspecified site; F41.9 Anxiety disorder, unspecified; J45.909 Unspecified asthma, uncomplicated
CPT/HCPCS: 71046; 94640; 96372; 99283; J2930; 94644